=== PATIENT | male | born 1955 | race Caucasian/White ===

== ENCOUNTER 2018-11-23 12:28 | Observation (INO) | payer OTHER ==
--- OUTSIDE RECORDS SUMMARY | 2018-11-23 12:30 | XMS REPORT ---
:1955 [facility] Address [address] Miguel [address] [place] [id number] Care Team Providers Name Role Phone Unavailable Unavailable Unavailable Problems This patient has no known problems. Allergies, Adverse Reactions, Alerts This patient has no known allergies or adverse reactions. Medications This patient has no known medications.
[2018-11-23] MEDS ORDERED: NA CHLORIDE 0.9% 1,000 ML ONE (13:19)
[2018-11-23] MEDS ORDERED: LORazepam 2 MG/ML VIAL ONE ×3 (13:19→16:57)
[2018-11-23] MEDS ORDERED: FAMOTIDINE 20 MG/2 ML VIAL IV ONE (13:19)
[2018-11-23] MEDS ORDERED: ONDANSETRON 4 MG/2 ML VIAL ONE (13:19)
[2018-11-23] MEDS ORDERED: NA CHLORIDE 0.9% 1,000 ML with FOLIC ACID 1 MG, THIAMINE HCL 100 MG, MULTIVITAMINS INJ ... IV SCH ×4 (13:30)
[2018-11-23 13:38] LABS: Absolute Lymphocytes (CBC) 0.9 K/uL (0.7-4.9); Basophils % 0.7 % (0-1.3); Eosinophils % 0.4 % (0-4.4); Hematocrit 41.9 % (39.6-49.0); MPV 6.8 fL (7.6-11.3); Monocytes % 9.5 % (3.3-12.3); RBC Red Blood Cell Count 4.07 M/uL (4.33-5.43)
[2018-11-23 13:41] LABS: Protime INR 0.94
--- NOTE | 2018-11-23 14:00 | EKG ---
Test Date: 2018-11-23 Test Time: 13:03:30 Dry Chain Offbearer: JAY MEASUREMENT RESULTS: Intervals: Rate: 96 AL: 156 QRSD: 86 QT: 348 QTc: 439 [place]: P: 74 AL: 156 QRS: 50 T: 20 INTERPRETIVE STATEMENTS: Normal sinus rhythm Normal ECG Compared to ECG 08/21/2017 15:07:44 Sinus tachycardia no longer present Electronically Signed On 11-23-18 14:00:10 CDT by Isac Schilling
--- NOTE | 2018-11-23 14:50 | RAD REPORT ---
EXAM DESCRIPTION: CT - Head Brain Wo Cont - 11/23/2018 2:42 pm CLINICAL HISTORY: Tremors COMPARISON: None. TECHNIQUE: Axial 5 mm thick images of the head were obtained without IV contrast. All CT scans are performed using dose optimization technique as appropriate and may include automated exposure control or mA/KV adjustment according to patient size. FINDINGS: No intracranial hemorrhage, mass, edema or shift of mid-line structures. No acute infarcti on changes seen. No abnormal extra-axial fluid collections. Minimal atrophy and chronic ischemic ramos ges are evident. Ventricles are in proportion to any volume loss. Brainstem chronic ischemic changes evident. Physiologic and arterial tree calcifications are present. Mastoid air cells and visualized portions of the paranasal sinuses are clear. No acute bony findings. IMPRESSION: Minimal atrophy and chronic ischemic change with no acute intracranial finding seen.
[2018-11-23 15:01] LABS: ALT/SGPT 29 U/L (12-78); AST/SGOT 40 U/L (15-37); Albumin 4.5 g/dL (3.4-5.0); Alkaline Phosphatase 80 U/L (45-117); BUN Blood Urea Nitrogen 12 mg/dL (7-18); Bicarbonate 21 mmol/L (21-32); Bilirubin Direct 0.6 mg/dL (0-0.2); Glucose Level 84 mg/dL (74-106); Magnesium 1.7 mg/dL (1.8-2.4); Phosphorus 1.5 mg/dL (2.5-4.9); Potassium 4.3 mmol/L (3.5-5.1); Protein, Total 8.3 g/dL (6.4-8.2); Sodium Level 137 mmol/L (136-145); Troponin I < 0.02 ng/mL (0.0-0.045)
--- NOTE | 2018-11-23 16:44 | ER ---
Nurse's Notes [facility] Name: Gavin Polo Jr Age: 63 yrs Sex: Male : 1955 Arrival Date: 11/23/2018 Time: 12:33 Bed 8 Private MD: Diagnosis: Alcohol dependence with withdrawal;Tremor, unspecified Presentation: 11/23 12:33 Presenting complaint: EMS states: toned out for shaking. pt states this happened to him ch approx 4 months ago, he was seen here and they didn't find a cause. stated it happened once for about four hours yesterday, and then today it keeps happening. c/o slight headache. Transition of care: patient was not received from another setting of care. Onset of symptoms was November 22, 2018 at 12:00. Risk Assessment: Do you want to hurt yourself or someone else? Patient reports no desire to harm self or others. Initial Sepsis Screen: Does the patient meet any 2 criteria? No. Patient's initial sepsis screen is negative. Does the patient have a suspected source of infection? No. Patient's initial sepsis screen is negative. Care prior to arrival: None. 12:33 Method Of Arrival: EMS: [facility] 12:33 Acuity: NICK 2 12:37 Presenting complaint: Patient states: I start shaking and I cannot stop, it comes and ch goes. started yesterday, but it went away. today it has not. I drink daily, but I cant remember when my last drink was. Triage Assessment: 12:37 General: Appears in no apparent distress. comfortable, Behavior is anxious, restless. ch Pain: Complains of pain in head Pain currently is 2 out of 10 on a pain scale. Neuro: Level of Consciousness is awake, alert, obeys commands, Oriented to person, place, time, situation, Copy Camera Operator are equal bilaterally Moves all extremities. Speech is normal, Facial symmetry appears normal, Facial symmetry: tongue is midline, Pupils are PERRLA, Reports headache Seizure activity pt has shaking generalized all over body, intermittantly. pt remains conscious, no loss of bowel or bladder function. pt states he has a headache. Respiratory: Airway is patent Respiratory effort is even, unlabored, Breath sounds are clear bilaterally. GI: No signs and/or symptoms were reported involving the gastrointestinal system. : No signs and/or symptoms were reported regarding the genitourinary system. Derm: Skin is healthy with good turgor, Skin is diaphoretic, Skin is flushed, Skin temperature is hot. Musculoskeletal: Capillary refill < 3 seconds, in bilateral fingers. toes. Historical: - Allergies: 12:44 No Known Allergies; ch - Home Meds: 16:52 bupropion HCl 100 mg Oral tab 1 tab pt takes two tabs in the AM, and 1 at 1200 ch [Active]; Protonix 40 mg Oral TbEC 1 tab once daily [Active]; escitalopram oxalate 10 mg oral tab 1 tab once daily [Active]; benazepril 20 mg oral tab 1 tab once daily [Active]; naltrexone 50 mg oral tab 1 tab once daily [Active]; - PMHx: 12:36 Atrial valve stenosis; GERD; Hypertension; central tremor; barrots; Anxiety; ch - PSHx: 12:36 Knee surgery; Hernia repair; ch - Immunization history:: Adult Immunizations up to date. - Social history:: Smoking status: Patient/guardian denies using tobacco, Patient uses alcohol, on a daily basis. daily, cannot remember last drink. - Ebola Screening: : Patient negative for fever greater than or equal to 101.5 degrees Fahrenheit, and additional compatible Ebola Virus Disease symptoms Patient denies exposure to infectious person Patient denies travel to an Ebola-affected area in the 21 days before illness onset No symptoms or risks identified at this time. Screenin:30 Abuse screen: Denies threats or abuse. Denies injuries from another. Nutritional ch screening: No deficits noted. Tuberculosis screening: No symptoms or risk factors identified. Fall Risk No fall in past 12 months (0 pts). Secondary diagnosis (15 points) IV access (20 points). Ambulatory Aid- None/Bed Rest/Nurse Assist (0 pts). Gait- Weak (10 pts.). Mental Status- Oriented to own ability (0 pts). Total Luna Fall Scale indicates Low Risk Score (25-44 pts). Fall prevention measures have been instituted. Side Rails Up X 2 Placed close to Nursing Station Frequent Obs/Assesments occuring Family Present and informed to notify staff if they need to leave bedside As available Patient and Family Educated on Fall Prevention Program and strategies. Assessment: 13:20 Reassessment: Patient appears in no apparent distress at this time. Patient and/or ch family updated on plan of care and expected duration. Pain level reassessed. pt asleep in room, no tremors now Patient states feeling better. Patient states symptoms have improved. 13:20 General: Appears in no apparent distress. comfortable. ch 14:14 Reassessment: Patient appears in no apparent distress at this time. Patient and/or ch family updated on plan of care and expected duration. Pain level reassessed. Patient is alert, oriented x 3, equal unlabored respirations, skin warm/dry/pink. Patient states feeling better. Patient states symptoms have improved. Reassessment: pt attempts to give urine sample, pt can stand and ambulate to chair without assistance. I remain at pt side due to fall risk status. Neuro: when pt is asleep, no tremors. when pt is awake, pt has short intermittent generalized shaking, much improved. 14:16 Reassessment: Patient appears in no apparent distress at this time. pt HR increases to ch 135 when pt pt moves out of bed to chair. pt hr then returns to 90s after being in bed for a few min. provider notified. 16:10 Reassessment: Patient appears in no apparent distress at this time. Patient and/or ch family updated on plan of care and expected duration. Pain level reassessed. Patient is alert, oriented x 3, equal unlabored respirations, skin warm/dry/pink. pt attempts to urinate for third time, unsuccessful. pt returns to bed, still having tremors. 16:52 Reassessment: Patient appears in no apparent distress at this time. Patient and/or ch family updated on plan of care and expected duration. Pain level reassessed. Patient is alert, oriented x 3, equal unlabored respirations, skin warm/dry/pink. Patient states feeling better. Patient states symptoms have improved. 18:05 Reassessment: Patient appears in no apparent distress at this time. No changes from previously documented assessment. Patient and/or family updated on plan of care and expected duration. Pain level reassessed. pt attempts to urinate again, unsuccessful. pt states this happens sometimes, he has prostate issues. pt refuses straight cath. pt given food tray, eating in room. no s/s of distress, awaiting room assignment Patient denies pain at this time. Patient states feeling better. 18:16 Reassessment: Patient appears in no apparent distress at this time. Patient and/or ch family updated on plan of care and expected duration. Pain level reassessed. attempting to call report now. 18:18 Reassessment: floor states they cannot take patients until after shift change. pt ch notified of wait another 1.5 hours at least till going up stairs. pt verb understanding. pt has eaten all his dinner, states he feels better and is fine. 19:10 Reassessment: Patient appears in no apparent distress at this time. UDS unable to ch obtain, not enough urine. pt urinates once, approx 200mL. urine is spilled at UA station after dip stick. Vital Signs: 12:37 BP 134 / 96; Pulse 113; Resp 26; Temp 98.8; Pulse Ox 99% on R/A; Weight 92.99 kg; ch Height 5 ft. 8 in. (172.72 cm); Pain 2/10; 13:40 BP 146 / 74; Pulse 87; Resp 12; Temp 98.2; Pulse Ox 99% on R/A; Pain 0/10; ch 15:27 BP 134 / 107; Pulse 110; Resp 18; Temp 98.8; Pulse Ox 99% on R/A; Pain 0/10; ch 16:10 BP 136 / 68; Pulse 93; Resp 16; Temp 98.7; Pulse Ox 96% on R/A; Pain 1/10; ch 18:05 BP 122 / 64; Pulse 91; Resp 22; Temp 98.8; Pulse Ox 96% on R/A; Pain 0/10; ch 12:37 Body Mass Index 31.17 (92.99 kg, 172.72 cm) ED Course: 12:33 Patient arrived in ED. 12:35 Triage completed. ch 12:37 Arm band placed on left wrist. Patient placed in an exam room, on a stretcher, on monitoring coordinator, on pulse oximetry, Patient seizure precautions in place. 12:49 [facility]endo[facility] cp 12:49 Josué Medrano MD is Attending Physician. cp 12:59 Torie Rojas, MAURISIO is Primary Nurse. 13:00 Patient has correct armband on for positive identification. Placed in gown. Bed in low ch position. Call light in reach. Side rails up X 1. Adult w/ patient. monitor worker on. Pulse ox on. NIBP on. 13:00 Pillow given. ch 13:04 EKG done, by electronic service technician. reviewed by Britton GUADARRAMA. sm3 13:20 No apparent distress. Resting quietly. Appears to be sleeping. ch 13:20 No provider procedures requiring assistance completed. Inserted saline lock: 18 gauge ch in left forearm, using aseptic technique. Blood collected. 14:44 CT Head Brain wo Cont In Process Unspecified. EDMS 16:42 Mario Pearce DO is Hospitalizing Provider. cp 19:42 Patient admitted, IV remains in place. ak1 Administered Medications: 13:21 Drug: Ativan 1 mg Route: IVP; Site: left forearm; ch 19:09 Follow up: Response: No adverse reaction; Marked relief of symptoms ch 13:21 Drug: Pepcid 20 mg Route: IVP; Site: left forearm; ch 14:13 Follow up: Response: No adverse reaction; Marked relief of symptoms ch 13:21 Drug: NS 0.9% 1000 ml Route: IV; Rate: 1 bolus; Site: left forearm; ch 14:00 Follow up: IV Status: Completed infusion; IV Intake: 1000ml ch 13:23 Drug: Zofran 4 mg Route: IVP; Site: left forearm; ch 14:13 Follow up: Response: No adverse reaction; Marked relief of symptoms ch 14:00 Drug: Banana Bag - (NS 0.9% 1000 ml, foLIC Acid 1 mg, Thiamine 100 mg, Multivitamin 1 ch amp) Route: IV; Rate: 250 ml/hr; Site: left forearm; 19:09 Follow up: IV Status: Infusion continued upon admission ch 14:30 Drug: Ativan 1 mg Route: IVP; Site: left forearm; ph 16:43 Follow up: Response: No adverse reaction ch 16:43 Drug: Ativan 1 mg Route: IVP; Site: left forearm; ch 16:49 Follow up: Response: No adverse reaction; Other; Other tremors reduced ch 16:54 Drug: Magnesium Sulfate 1 grams Route: IVPB; Infused Over: 1 hrs; Site: left forearm; ch 18:20 Follow up: IV Status: Completed infusion; IV Intake: 100ml ch Intake: 14:00 IV: 1000ml; Total: 1000ml. ch 18:20 IV: 100ml; Total: 1100ml. ch Outcome: 16:43 Decision to Hospitalize by Provider. cp 19:42 Admitted to Med/surg accompanied by tech, via stretcher, room 217, with chart, Report ak1 called to cherise. 19:42 Condition: stable 19:42 Instructed on the need for admit. 19:57 Patient left the ED. ak1 Signatures: Dispatcher [employer] EDMS Torie Rojas RN RN Corie Guillen RN RN ak1 Irene Case RN RN ph Kelly, Britton, PA PA cp Cathryn Craven 3 Corrections: (The following items were deleted from the chart) 12:43 12:33 Acuity: NICK 3 ch ch 14:16 13:20 Reassessment: Patient appears in no apparent distress at this time. Patient ch and/or family updated on plan of care and expected duration. Pain level reassessed. Patient is alert, oriented x 3, equal unlabored respirations, skin warm/dry/pink. pt asleep in room, no tremors now Patient states feeling better. Patient states symptoms have improved. ch
--- NOTE | 2018-11-23 16:44 | EDPHYS ---
Physician Documentation [facility] Name: Gavin Polo Jr Age: 63 yrs Sex: Male : 1955 Arrival Date: 11/23/2018 Time: 12:33 Bed 8 Private MD: ED Physician Josué Medrano HPI: 11/23 13:05 This 63 yrs old Male presents to ER via EMS with complaints of Tremor. cp 13:05 The patient's problem is reported as tremor. cp 13:05 Onset: The symptoms/episode began/occurred this morning. Duration: The episode is cp continuous. Associated signs and symptoms: Pertinent positives: headache, Pertinent negatives: abdominal pain, chest pain. Severity of symptoms: in the emergency department the symptoms are unchanged despite home interventions. Patient's baseline: Neuro: alert and fully oriented, Motor: no deficits, Ambulation: walks without assistance, Speech: normal. of patient daily drinking of 5 alcoholic beverages per night for the past several months. Patient reports he stopped drinking yesterday and shaking worsened this morning. Historical: - Allergies: 12:44 No Known Allergies; - Home Meds: 16:52 bupropion HCl 100 mg Oral tab 1 tab pt takes two tabs in the AM, and 1 at 1200 ch [Active]; Protonix 40 mg Oral TbEC 1 tab once daily [Active]; escitalopram oxalate 10 mg oral tab 1 tab once daily [Active]; benazepril 20 mg oral tab 1 tab once daily [Active]; naltrexone 50 mg oral tab 1 tab once daily [Active]; - PMHx: 12:36 Atrial valve stenosis; GERD; Hypertension; central tremor; barrots; Anxiety; - PSHx: 12:36 Knee surgery; Hernia repair; - Immunization history:: Adult Immunizations up to date. - Social history:: Smoking status: Patient/guardian denies using tobacco, Patient uses alcohol, on a daily basis. daily, cannot remember last drink. - Ebola Screening: : Patient negative for fever greater than or equal to 101.5 degrees Fahrenheit, and additional compatible Ebola Virus Disease symptoms Patient denies exposure to infectious person Patient denies travel to an Ebola-affected area in the 21 days before illness onset No symptoms or risks identified at this time. ROS: 13:10 Constitutional: Negative for body aches, chills, fever, poor PO intake. cp 13:10 Eyes: Negative for injury, pain, redness, and discharge. cp Exam: 13:05 ECG was reviewed by the Attending Physician. cp 13:15 Constitutional: The patient appears in no acute distress, alert, awake, non-toxic, well cp developed, well nourished, diaphoretic. 13:15 Head/Face: Normocephalic, atraumatic. cp 13:15 Eyes: Periorbital structures: appear normal, Pupils: equal, round, and reactive to light and accomodation, Extraocular movements: intact throughout, Conjunctiva: normal, no exudate, no injection, Sclera: no appreciated abnormality, Lids and lashes: appear normal, bilaterally. 13:15 ENT: External ear(s): are unremarkable, Ear canal(s): are normal, clear, TM's: are normal, no evidence of bulging, no erythema, Nose: is normal, Mouth: Lips: moist, Oral mucosa: pink and intact, moist, Posterior pharynx: is normal, airway is patent, no erythema, no exudate. 13:15 Neck: ROM/movement: is normal, is supple, without pain, no range of motions limitations, no nuchal rigidity. 13:15 Chest/axilla: Inspection: normal, Palpation: is normal, no crepitus, no tenderness. 13:15 Cardiovascular: Rate: tachycardic, Rhythm: regular, Edema: is not appreciated, JVD: is not appreciated. 13:15 Respiratory: the patient does not display signs of respiratory distress, Respirations: normal, no use of accessory muscles, no retractions, no splinting, no tachypnea, labored breathing, is not present, Breath sounds: are clear throughout, no decreased breath sounds, no stridor, no wheezing. 13:15 Abdomen/GI: Inspection: abdomen appears normal, Palpation: abdomen is soft and non-tender, in all quadrants. 13:15 Skin: cellulitis, is not appreciated, no rash present. 13:15 Neuro: Orientation: to person, place \T\ time. Mentation: is normal, Cerebellar function: normal finger to nose testing, Motor: moves all fours, strength is normal, Sensation: is normal, Abnormal movements: resting tremor, is located in the right arm and left arm. 15:00 Radiologist reports: no acute findings cp Vital Signs: 12:37 BP 134 / 96; Pulse 113; Resp 26; Temp 98.8; Pulse Ox 99% on R/A; Weight 92.99 kg; ch Height 5 ft. 8 in. (172.72 cm); Pain 2/10; 13:40 BP 146 / 74; Pulse 87; Resp 12; Temp 98.2; Pulse Ox 99% on R/A; Pain 0/10; ch 15:27 BP 134 / 107; Pulse 110; Resp 18; Temp 98.8; Pulse Ox 99% on R/A; Pain 0/10; ch 16:10 BP 136 / 68; Pulse 93; Resp 16; Temp 98.7; Pulse Ox 96% on R/A; Pain 1/10; ch 18:05 BP 122 / 64; Pulse 91; Resp 22; Temp 98.8; Pulse Ox 96% on R/A; Pain 0/10; ch 12:37 Body Mass Index 31.17 (92.99 kg, 172.72 cm) ch MDM: 12:55 Patient medically screened. cp 15:45 Data reviewed: vital signs, nurses notes, lab test result(s), EKG, radiologic studies, cp CT scan, plain films, I have discussed the patient's presentation/case with the attending Emergency Department Physician; and as a result, I will admit patient. 15:45 Test interpretation: by ED physician or midlevel provider: ECG. Counseling: I had a cp detailed discussion with the patient and/or guardian regarding: the historical points, exam findings, and any diagnostic results supporting the discharge/admit diagnosis, lab results, radiology results. Response to treatment: the patient's symptoms have mildly improved after treatment. 15:53 Physician consultation: Mario Portia AGUILERA was called at 15:54, was contacted at 15:54, regarding admission. 11/23 12:57 Order name: Acetaminophen cp 11/23 12:57 Order name: Basic Metabolic Panel cp 11/23 12:57 Order name: CBC with Diff cp 11/23 12:57 Order name: ETOH Level cp 11/23 12:57 Order name: Hepatic Function cp 11/23 12:57 Order name: PT-INR cp 11/23 12:57 Order name: Ptt, Activated; Complete Time: 14:08 cp 11/23 12:57 Order name: Salicylate; Complete Time: 14:54 11/23 12:57 Order name: Urine Drug Screen 11/23 12:57 Order name: Troponin I; Complete Time: 15:34 11/23 12:57 Order name: Magnesium; Complete Time: 15:34 11/23 12:57 Order name: Phosphorus; Complete Time: 15:34 11/23 12:59 Order name: Acetaminophen Level; Complete Time: 15:34 EDTN 11/23 12:59 Order name: Basic Metabolic Panel; Complete Time: 15:34 EDTN 11/23 12:57 Order name: EKG; Complete Time: 13:00 11/23 12:59 Order name: CBC with Automated Diff; Complete Time: 14:08 [facility] 11/23 14:07 Interpretation: Normal except: RBC 4.07; MCV 103.1; MCH 36.6; PLT 149; MPV 6.8. 11/23 12:59 Order name: Alcohol Serum/Plasma; Complete Time: 14:08 [facility] 11/23 13:00 Order name: Liver (Hepatic) Function; Complete Time: 15:34 [facility] 11/23 13:00 Order name: Protime (+INR); Complete Time: 14:08 [facility] 11/23 14:18 Order name: CT Head Brain wo Cont; Complete Time: 14:54 11/23 14:54 Interpretation: Report reviewed. 11/23 18:33 Order name: Urine Dipstick--Ancillary (enter results) 11/23 18:40 Order name: Urine Dipstick-Ancillary [facility] 11/23 12:57 Order name: EKG - Nurse/Tech; Complete Time: 13:43 11/23 12:57 Order name: IV Saline Lock; Complete Time: 13:43 11/23 12:57 Order name: Labs collected and sent; Complete Time: 13:43 11/23 12:57 Order name: Urine Dipstick-Ancillary (obtain specimen); Complete Time: 19:15 11/23 12:57 Order name: IV; Complete Time: 13:43 11/23 16:58 Order name: Diet Regular; Complete Time: 17:01 11/23 17:04 Order name: Social Service Consult EDMS EC:05 Rate is 96 beats/min. Rhythm is regular. [place] interval is normal. QRS interval is normal. cp QT interval is normal. T waves are Inverted in lead III. Interpreted by me. Reviewed by me. Administered Medications: 13:21 Drug: Ativan 1 mg Route: IVP; Site: left forearm; ch 19:09 Follow up: Response: No adverse reaction; Marked relief of symptoms ch 13:21 Drug: Pepcid 20 mg Route: IVP; Site: left forearm; ch 14:13 Follow up: Response: No adverse reaction; Marked relief of symptoms ch 13:21 Drug: NS 0.9% 1000 ml Route: IV; Rate: 1 bolus; Site: left forearm; ch 14:00 Follow up: IV Status: Completed infusion; IV Intake: 1000ml ch 13:23 Drug: Zofran 4 mg Route: IVP; Site: left forearm; ch 14:13 Follow up: Response: No adverse reaction; Marked relief of symptoms ch 14:00 Drug: Banana Bag - (NS 0.9% 1000 ml, foLIC Acid 1 mg, Thiamine 100 mg, Multivitamin 1 ch amp) Route: IV; Rate: 250 ml/hr; Site: left forearm; 19:09 Follow up: IV Status: Infusion continued upon admission ch 14:30 Drug: Ativan 1 mg Route: IVP; Site: left forearm; ph 16:43 Follow up: Response: No adverse reaction ch 16:43 Drug: Ativan 1 mg Route: IVP; Site: left forearm; ch 16:49 Follow up: Response: No adverse reaction; Other; Other tremors reduced ch 16:54 Drug: Magnesium Sulfate 1 grams Route: IVPB; Infused Over: 1 hrs; Site: left forearm; ch 18:20 Follow up: IV Status: Completed infusion; IV Intake: 100ml ch Disposition: 11/23/18 16:43 Hospitalization ordered by Mario Pearce for Observation. Preliminary diagnosis are Alcohol dependence with withdrawal, Tremor, unspecified. - Bed requested for Telemetry/MedSurg (observation). - Status is Observation. ak1 - Condition is Stable. - Problem is new. - Symptoms have improved. UTI on Admission? No Addendum: 11/26/2018 11:54 Co-signature as Attending Physician, Josué Medrano MD I agree with the assessment and k dr plan of care. Signatures: Dispatcher [employer] EDMS Torie Rojas RN RN Josué Medrano MD MD kdr Solis, Maria ms Corie Guillen RN RN ak1 Irene Case RN RN Britton Mendoza, THIERRY GUADARRAMA cp Corrections: (The following items were deleted from the chart) 11/23 18:09 16:43 Hospitalization Ordered by Mario Pearce DO for Observation. Preliminary ms diagnosis is Alcohol dependence with withdrawal; Tremor, unspecified. Bed requested for Telemetry/MedSurg (observation). Status is Observation. Condition is Stable. Problem is new. Symptoms have improved. UTI on Admission? No. cp 19:57 18:09 11/23/2018 16:43 Hospitalization Ordered by Mario Pearce DO for Observation. ak1 Preliminary diagnosis is Alcohol dependence with withdrawal; Tremor, unspecified. Bed requested for Telemetry/MedSurg (observation). Status is Observation. Condition is Stable. Problem is new. Symptoms have improved. UTI on Admission? No. ms
--- NOTE | 2018-11-23 16:53 | P.HP ---
Certification for Inpatient Patient admitted to: Observation With expected LOS: <2 Midnights Patient will require the following post-hospital care: Home Health Services Practitioner: I am a practitioner with admitting privileges, knowledge of patient current condition, hospital course, and medical plan of care. Services: Services provided to patient in accordance with Admission requirements found in Title 42 Section 412.3 of the Code of Federal Regulations Patient History Date of Service: 11/23/18 Primary Care Provider: Dr. Case([facility]); Neurology-Dr. Campos Reason for admission: Increase tremor History of Present Illness: 63-year-old male with history of GERD, hypertension, depression with anxiety, essential tremor, and alcohol abuse. Patient presented to the emergency room with increased tremor. Patient had increase tremor over the last day. He was getting worse. He admits drinking alcohol on a regular basis for greater than 20 years. He drinks about a half a gal of whiskey per day. His last use of alcohol was yesterday. Patient is planning to quit. Patient denies chest pain, shortness of breath, nausea, vomiting, abdominal pain, diarrhea or constipation. Patient further mentions that he is seen by a neurology for essential tremors. He has been on multiple medications for this without any success. He currently takes gabapentin at this time. Other medications include Naltrexone which I suspect has been given to him for alcohol abuse. He came to the ER for further evaluation. In the ER patient slightly tachycardic with a rate around 110. Blood pressure also slightly elevated. Patient afebrile. Oxygen saturations within normal range. Tremors were very noticeable. White count 5.5, hemoglobin 14.9, platelet count 149. Sodium 137, potassium 4.3, BUN of 12, creatinine 1.23 with a GFR 59. Glucose 84. AST elevated. Magnesium 1.7. Alcohol level less than 3. Urine drug screen pending. CT of the head unremarkable except for chronic ischemic changes. Patient was given 2 mg of Ativan to help with the tremor. Patient also given banana bag IV. Patient was admitted for observation. When I saw the patient ER, was at bedside. He did not appear in any significant distress. Very noticeable tremors noted. Patient not able to ambulate at this time. Patient admits alcohol abuse. Patient has not been admitted for alcohol withdrawal in the past. He has stop alcohol in the past without significant withdrawal. Allergies No Known Allergies Allergy (Unverified 11/23/18 13:11) Home medications list reviewed: Yes - Past Medical/Surgical History Diabetic: No -: Hypertension -: Depression with anxiety -: GERD -: Essential tremors -: Alcohol abuse -: Left knee surgery Psychosocial/ Personal History: Patient is of 35 years. He has 1 child. Patient is retired. - Family History Brother -: Other (see notes) (Tremors) Sister -: Other (see notes) (Tremors) Father -: Cancer (Prostate cancer) Mother -: Cancer (Breast cancer) - Social History Smoking Status: Never smoker Alcohol use: Yes CD- Drugs: No Caffeine use: Yes Place of Residence: Home Review of Systems General: As per HPI Eyes: Unremarkable ENT: Unremarkable Respiratory: Unremarkable Cardiovascular: Unremarkable Gastrointestinal: Unremarkable Genitourinary: Unremarkable Musculoskeletal: Unremarkable Integumentary: Unremarkable Neurological: Incoordination, As per HPI Lymphatics: Unremarkable Physical Examination - Physical Exam General: Alert, In no apparent distress, Oriented x3, Cooperative HEENT: Atraumatic, Normocephalic, PERRLA, Mucous membr. moist/pink Neck: Supple, No Thyromegaly Respiratory: Clear to auscultation bilaterally, Normal air movement Cardiovascular: Abnormal pulses (Sinus tachycardia) Gastrointestinal: Normal bowel sounds, Soft and benign, Non-distended, No ascites, No tenderness, No masses, No rebound, No guarding Musculoskeletal: No erythema, No tenderness, No warmth, Other (Patient with active and passive tremors. Worse with activity. Patient not able to safely ambulate) Neurological: Normal speech, Normal strength at 5/5 x4 extr, Normal tone, Normal affect - Studies Laboratory Data (last 24 hrs) 11/23/18 13:21: PT 11.1, INR 0.94, APTT 28.1 11/23/18 13:21: WBC 5.5, Hgb 14.9, Hct 41.9, Plt Count 149 L 11/23/18 13:21: Sodium 137, Potassium 4.3, BUN 12, Creatinine 1.23, Glucose 84, Phosphorus 1.5 L, Magnesium 1.7 L, Total Bilirubin 2.0 H, AST 40 H, ALT 29, Alkaline Phosphatase 80, Troponin I < 0.02 Assessment and Plan - Plan Impression: Tremors with agitation suspect alcohol withdrawal complicated with essential moderate to severe tremors Acute Renal insufficiency secondary to Dehydration with hypomagnesia Hypertension Depression with anxiety GERD Plan: Tremors with agitation suspect alcohol withdrawal complicated with essential moderate to severe tremors: Patient will be admitted for observation. Will continue with IV fluids. Will provide IV banana bag for alcohol withdrawal. Will continue to monitor closely. Continue alcohol withdrawal protocol. Will start Librium 5 mg 3 times a day and hold if with increase sedation. Will provide Ativan as needed for severe agitation. Will discontinue Naltrexone. It appears he has been taking this for his alcohol abuse. Patient also taking Neurontin for chronic tremors. Will continue with his medication. I left a message with his neurologist Dr. Campos([phone]) to obtain more information on his history. Will have physical therapy and occupational therapy assess ambulation tomorrow. Fall precautions in place. Will provide bed rest tonight. If clinically stable without risk of fall and injury tomorrow , will consider discharge home. Patient may benefit with home health and physical therapy which can be arranged as an outpatient. Will continue to reassess and monitor closely. Patient continues with DVT prophylaxis-Lovenox. I will turn the service over to Dr. Lim tomorrow. I will go over the plan of care with her. Acute Renal insufficiency secondary to Dehydration with hypomagnesia: Continue with IV fluids and banana bag. Will monitor and adjust appropriately. Electrolytes to be replaced. Hypertension: Restart benazepril. Depression with anxiety: Restart his medication of Escitalopram 20 mg daily and Bupropion 100 mg 2 pills in the morning and 1 pill at night. GERD: Will continue his medication of Protonix. Discharge Plan: Home Plan to discharge in: 24 Hours - Advance Directives Does patient have a Living Will: No Does patient have a Durable POA for Healthcare: No - Code Status/Comfort Care Code Status Assessed: Yes (Patient full code) Time Spent Managing Pts Care (In Minutes): 55
[2018-11-23] MEDS ORDERED: MAGNESIUM SULFATE 1 gm IVPB 1 GM/100 ML BAG IV ONE (17:14)
[2018-11-23 18:39] LABS: Urine Blood TRACE (NEG); Urine Glucose NEGATIVE (NEG); Urine Protein NEGATIVE (NEG); Urine Specific Gravity 1.015 (1.005-1.030)
[2018-11-23] MEDS ORDERED: buPROPion HCl 100 MG TAB PO SCH (20:21)
[2018-11-23] MEDS ORDERED: ACETAMINOPHEN 500 MG TAB PO PRN (20:21)
[2018-11-23] MEDS ORDERED: ONDANSETRON 4 MG/2 ML VIAL IV PRN (20:21)
[2018-11-23] MEDS ORDERED: LORazepam 2 MG/ML VIAL IV PRN (20:21)
[2018-11-23] MEDS: buPROPion HCl 100 MG TAB PO SCH (21:24)
[2018-11-23] MEDS: NA CHLORIDE 0.9% 1,000 ML IV SCH (21:24)
[2018-11-23] MEDS: chlordiazePOXIDE HCl 5 MG CAP PO SCH (21:25)
[2018-11-23] MEDS: POTASS/SODIUM PHOSPHATE 1 PKT POWD.PACK PO SCH ×3 (21:25→23:17)
[2018-11-23] MEDS: GABAPENTIN 300 MG CAP PO SCH (21:25)
[2018-11-23 23:15] LABS: Urine Appearance CLEAR; Urine Bilirubin NEGATIVE (NEG); Urine Blood NEGATIVE (NEG); Urine Color YELLOW; Urine Glucose NEGATIVE (NEG); Urine Protein NEGATIVE (NEG); Urine Specific Gravity 1.015 (1.005-1.030)
[2018-11-23 23:17] LABS: Urine Microscopic Reflex NO UMIC
[2018-11-24 04:28] LABS: Absolute Lymphocytes (CBC) 1.2 K/uL (0.7-4.9); Basophils % 0.8 % (0-1.3); Eosinophils % 0.7 % (0-4.4); Hematocrit 34.6 % (39.6-49.0); Lymphocytes % 27.7 % (15.3-44.8); MPV 7.4 fL (7.6-11.3); Monocytes % 14.6 % (3.3-12.3)
[2018-11-24 04:45] LABS: Albumin 3.6 g/dL (3.4-5.0); Bilirubin Total 1.2 mg/dL (0.2-1.0); Phosphorus 3.5 mg/dL (2.5-4.9); Potassium 3.8 mmol/L (3.5-5.1); Protein, Total 6.9 g/dL (6.4-8.2); Thyroid Stimulating Hormone 4.88 uIU/mL (0.360-3.740)
[2018-11-24] MEDS ORDERED: POTASSIUM CL SA 10 MEQ TAB PO ONE (05:18)
[2018-11-24] MEDS: PANTOPRAZOLE 40MG TABLET PO SCH (05:44)
[2018-11-24] MEDS: NA CHLORIDE 0.9% 1,000 ML IV SCH ×2 (05:47→08:15)
[2018-11-24] MEDS: buPROPion HCl 100 MG TAB PO SCH ×2 (08:14→16:08)
[2018-11-24] MEDS: BENAZEPRIL 10 MG TAB PO SCH (08:14)
[2018-11-24] MEDS: chlordiazePOXIDE HCl 5 MG CAP PO SCH ×2 (08:14→13:05)
[2018-11-24] MEDS: ESCITALOPRAM 20 MG TAB PO SCH (08:15)
[2018-11-24] MEDS: ENOXAPARIN 40 MG/0.4 ML SQ SCH (08:15)
[2018-11-24] MEDS: GABAPENTIN 300 MG CAP PO SCH ×3 (08:15→20:36)
[2018-11-24] MEDS: FOLIC ACID 1 MG, MULTIVITAMINS INJ 10 ML, THIAMINE HCL 100 MG in NA CHLORIDE 0.9% 1,000 ML IV SCH (09:03)
--- NOTE | 2018-11-24 14:04 | P.PN ---
Subjective Date of Service: 11/24/18 Primary Care Provider: Dr. Case([facility]); Neurology-Dr. Campos Chief Complaint: Increase tremor pt recieved ativan early am ,pt was having generalized shaking and anxiety , withdrawal?? no other complains Review of Systems 10-point ROS is otherwise unremarkable Physical Examination - Vital Signs Temperature: 98 F Blood Pressure: 139/93 Pulse: 90 Respirations: 20 Pulse Ox (%): 94 - Physical Exam General: Alert, In no apparent distress, Oriented x3 HEENT: Atraumatic, Normocephalic, PERRLA Respiratory: Clear to auscultation bilaterally, Normal air movement Cardiovascular: No edema, Normal pulses, Regular rate/rhythm, Normal S1 S2 Gastrointestinal: Normal bowel sounds, Soft and benign, Non-distended Musculoskeletal: No swelling, No erythema, No tenderness Integumentary: No rashes Neurological: Normal speech, Normal strength at 5/5 x4 extr Other Physical/Emotional Findings: bilaterla hand tremors - Studies Laboratory Data (last 24 hrs) 11/23/18 13:21: Sodium 137, Potassium 4.3, BUN 12, Creatinine 1.23, Glucose 84, Phosphorus 1.5 L, Magnesium 1.7 L, Total Bilirubin 2.0 H, AST 40 H, ALT 29, Alkaline Phosphatase 80, Troponin I < 0.02 Assessment And Plan - Current Problems (Diagnosis) (1) Alcohol abuse Current Visit: Yes Status: Acute (2) Essential tremor Current Visit: Yes Status: Chronic (3) Hypertension Current Visit: Yes Status: Chronic (4) Depression Current Visit: Yes Status: Chronic - Plan alcohol abuse impending withdrawal transaminitis and elevated bilirubin essential tremors hypertension GERD depression plan: librium taerping ativan prn monitor fir withdrawal pt denied any abdominal pain ,no N /V ,pt needs to repeat his LFT as op PT/OT thiamine and folate neurology was consulted ,pt will f/up as op for his essential tremor resume other home meds
[2018-11-25] MEDS: NA CHLORIDE 0.9% 1,000 ML IV SCH (04:05)
[2018-11-25 06:14] LABS: Absolute Lymphocytes (CBC) 1.3 K/uL (0.7-4.9); Basophils % 0.5 % (0-1.3); Eosinophils % 2.2 % (0-4.4); Hematocrit 35.3 % (39.6-49.0); Lymphocytes % 35.1 % (15.3-44.8); MPV 7.2 fL (7.6-11.3); Monocytes % 14.6 % (3.3-12.3); RBC Red Blood Cell Count 3.36 M/uL (4.33-5.43)
[2018-11-25 06:28] LABS: Albumin 3.6 g/dL (3.4-5.0); Bilirubin Total 0.8 mg/dL (0.2-1.0); Magnesium 2.1 mg/dL (1.8-2.4); Potassium 3.6 mmol/L (3.5-5.1); Protein, Total 6.8 g/dL (6.4-8.2)
[2018-11-25] MEDS: PANTOPRAZOLE 40MG TABLET PO SCH (07:07)
[2018-11-25] MEDS ORDERED: chlordiazePOXIDE HCl 25 MG CAP PO ONE (08:00)
[2018-11-25] MEDS: ENOXAPARIN 40 MG/0.4 ML SQ SCH (08:35)
[2018-11-25] MEDS: ESCITALOPRAM 20 MG TAB PO SCH (08:35)
[2018-11-25] MEDS: GABAPENTIN 300 MG CAP PO SCH (08:35)
[2018-11-25] MEDS: buPROPion HCl 100 MG TAB PO SCH (08:35)
[2018-11-25] MEDS: BENAZEPRIL 10 MG TAB PO SCH (08:35)
[2018-11-25] MEDS: FOLIC ACID 1 MG, MULTIVITAMINS INJ 10 ML, THIAMINE HCL 100 MG in NA CHLORIDE 0.9% 1,000 ML IV SCH (08:36)
[2018-11-25] MEDS ORDERED: POTASSIUM CL SA 10 MEQ TAB PO ONE (09:00)
--- NOTE | 2018-11-25 11:16 | P.DS ---
Admission Date: 11/23/18 Discharge Date: 11/25/18 Primary Care Provider: Dr. Case([facility]); Neurology-Dr. Campos Discharge Condition: FAIR Reason for Admission: Increase tremor - Problems (1) Alcohol abuse Current Visit: Yes Status: Acute (2) Essential tremor Current Visit: Yes Status: Chronic (3) Hypertension Current Visit: Yes Status: Chronic (4) Depression Current Visit: Yes Status: Chronic Brief History of Present Illness: 63-year-old male with history of GERD, hypertension, depression with anxiety, essential tremor, and alcohol abuse.Patient presented to the emergency room with increased tremor. Patient had increase tremor over the last day. He was getting worse. He admits drinking alcohol on a regular basis for greater than 20 years. He drinks about a half a gal of whiskey per day. His last use of alcohol was yesterday. Patient is planning to quit. Patient denies chest pain, shortness of breath, nausea, vomiting, abdominal pain, diarrhea or constipation. Patient further mentions that he is seen by a neurology for essential tremors. He has been on multiple medications for this without any success Hospital Course: 63-year-old male with history of GERD, hypertension, depression with anxiety, essential tremor, and alcohol abuse.Patient was admittd for alcohol abuse and withdrawal,pt was given banana bag and librium tapering with ativan prn for withdrawal or agitation on the second day of admission pt was having generalzied shaking and was calling the nursing staff and mentioend that he is having seizures , pt seen and examined and on further questioned pt mentioned that he was told by his private neurologist that this generlized shaking is part of his tremor and not seizures pt vitals were stable during the stay and didnt have evidence of tongue biting or frothy secretions ot post ictal confusion on the 3rd day of admission pt denied any headaches and didnt receive Ativan overnight physical therapy evaluated the pt and pt was able to ambulate with no fall risks pt was clinically stable for discharge pt adviced to f/up with his private neuroogist DR Campos in 1-2 weeks pt was managed for: alcohol abuse impending withdrawal transaminitis and elevated bilirubin -resolved essential tremors hypertension GERD depression plan: librium taerping ativan prn monitor fir withdrawal pt denied any abdominal pain ,no N /V ,pt needs to repeat his LFT as op PT/OT thiamine and folate neurology was consulted ,pt will f/up as op for his essential tremor resume other home meds Vital Signs/Physical Exam: Temp Pulse Resp BP Pulse Ox 97.7 F 80 18 128/76 97 11/25/18 08:00 11/25/18 08:00 11/25/18 08:00 11/25/18 08:00 11/25/18 08:00 General: Alert, In no apparent distress, Oriented x3 HEENT: Atraumatic, Normocephalic, PERRLA Neck: Supple, JVD not distended Respiratory: Clear to auscultation bilaterally, Normal air movement Cardiovascular: No edema, Normal pulses, Regular rate/rhythm, Normal S1 S2 Gastrointestinal: Normal bowel sounds, Soft and benign, Non-distended Musculoskeletal: No clubbing, No swelling Integumentary: No rashes Neurological: Normal speech, Normal strength at 5/5 x4 extr Other Physical/Emotional Findings: bilaterla hand tremors Laboratory Data at Discharge: WBC 3.7 K/uL (4.3-10.9) L 11/25/18 05:21 Hgb 12.6 g/dL (13.6-17.9) L 11/25/18 05:21 Hct 35.3 % (39.6-49.0) L 11/25/18 05:21 Plt Count 102 K/uL (152-406) L 11/25/18 05:21 PT 11.1 SECONDS (9.5-12.5) 11/23/18 13:21 INR 0.94 11/23/18 13:21 APTT 28.1 SECONDS (24.3-36.9) 11/23/18 13:21 Sodium 135 mmol/L (136-145) L 11/25/18 05:21 Potassium 3.6 mmol/L (3.5-5.1) 11/25/18 05:21 BUN 12 mg/dL (7-18) 11/25/18 05:21 Creatinine 0.86 mg/dL (0.55-1.3) 11/25/18 05:21 Glucose 79 mg/dL (74-106) 11/25/18 05:21 Phosphorus 3.5 mg/dL (2.5-4.9) D 11/24/18 03:59 Magnesium 2.1 mg/dL (1.8-2.4) 11/25/18 05:21 Total Bilirubin 0.8 mg/dL (0.2-1.0) 11/25/18 05:21 AST 38 U/L (15-37) H 11/25/18 05:21 ALT 25 U/L (12-78) 11/25/18 05:21 Alkaline Phosphatase 59 U/L (45-117) 11/25/18 05:21 Troponin I < 0.02 ng/mL (0.0-0.045) 11/23/18 13:21 Triglycerides 54 mg/dL (<150) 11/24/18 03:59 Cholesterol 153 mg/dL (<200) 11/24/18 03:59 HDL Cholesterol 72 mg/dL (40-60) H 11/24/18 03:59 Cholesterol/HDL Ratio 2.13 11/24/18 03:59 Home Medications: Benazepril HCl [Lotensin*] 1 tab PO DAILY 11/23/18 Escitalopram [Lexapro*] 1 tab PO DAILY 11/23/18 Pantoprazole Sodium 1 tab PO ACB 11/23/18 buPROPion HCl [Bupropion HCl] 1 tab PO NOON 11/23/18 buPROPion HCl [Bupropion HCl] 2 tab PO DAILY 11/23/18 Patient Discharge Instructions: f/up with neurology DR Campos in 1-2 weeks for his essential tremor. f/up with PCP for continuation of care Diet: Low sodium Activity: Ad avelino
[2018-11-25 11:44] LABS: Barbiturates NEGATIVE (NEGATIVE); Benzodiazepines NEGATIVE (NEGATIVE); Cocaine NEGATIVE (NEGATIVE); METHAMPHETAM NEGATIVE (NEGATIVE); Methadone NEGATIVE (NEGATIVE); Opiates NEGATIVE (NEGATIVE); Phencyclidine NEGATIVE (NEGATIVE); THC Cannibis NEGATIVE (NEGATIVE)
== END 2018-11-25 13:25 | disposition home or self-care (01) ==
LOC: ER 12:28 → INTOOBSV 16:34 → OBSVTOIN 16:34 → ERHOLD 16:34 → 2ND 19:44 → INTOOBSV 11-25 10:02 → OBSVTOIN 11-25 10:02
PROVIDERS: ADMIT Family Medicine; ATTEND Family Medicine
DX: F10.239 Alcohol dependence with withdrawal, unspecified (principal); G25.0 Essential tremor; I10 Essential (primary) hypertension; F41.8 Other specified anxiety disorders; K21.9 Gastro-esophageal reflux disease without esophagitis; N28.9 Disorder of kidney and ureter, unspecified; E83.42 Hypomagnesemia; E86.0 Dehydration
CPT/HCPCS: 36415; 70450; 80048; 80053; 80061; 80076; 80307; 80320; 80329; 81003; 83735; 84100; 84439; 84443; 84484; 85025; 85610; 85730; 93005; 96361; 96365; 96366; 96375; 97116; 97163; 99285; J1650; J2405; J3411; J3475; J7030

== ENCOUNTER 2018-12-25 14:16 | Inpatient (IN) | payer OTHER ==
--- OUTSIDE RECORDS SUMMARY | 2018-12-25 14:21 | XMS REPORT ---
:1955 Author Organization [facility] Address [address] [place] [address] [place] [id number] Care Team Providers Name Role Phone Unavailable Unavailable Unavailable Problems This patient has no known problems. Allergies, Adverse Reactions, Alerts This patient has no known allergies or adverse reactions. Medications This patient has no known medications.
[2018-12-25 15:01] LABS: Absolute Lymphocytes (CBC) 1.6 K/uL (0.7-4.9); Hematocrit 35.9 % (39.6-49.0); Lymphocytes % 27.6 % (15.3-44.8); MPV 7.1 fL (7.6-11.3); RBC Red Blood Cell Count 3.39 M/uL (4.33-5.43)
[2018-12-25] MEDS ORDERED: LORazepam 2 MG/ML VIAL ONE ×4 (15:02→20:25)
[2018-12-25] MEDS ORDERED: NA CHLORIDE 0.9% 1,000 ML ONE (15:02)
[2018-12-25 15:34] LABS: Albumin 4.1 g/dL (3.4-5.0); Bilirubin Direct 0.3 mg/dL (0-0.2); Magnesium 1.7 mg/dL (1.8-2.4); Potassium 3.7 mmol/L (3.5-5.1); Protein, Total 7.7 g/dL (6.4-8.2); Troponin (Emerg Dept Use Only) 0.03 ng/mL (0.0-0.045)
--- NOTE | 2018-12-25 15:38 | RAD REPORT ---
EXAM DESCRIPTION: RAD - Chest Single View - 12/25/2018 3:24 pm CLINICAL HISTORY: DYSPNEA Chest pain. COMPARISON: Chest Single View dated 08/21/2017; CHEST PA AND LAT 2 VIEW dated 06/13/2013; CHEST PA AND LAT 2 VIEW dated 01/24/2000 FINDINGS: Portable technique limits examination quality. The lungs are grossly clear. The heart is normal in size. No displaced fractures. IMPRESSION: No acute intrathoracic process suspected.
[2018-12-25 15:43] LABS: Blood Morphology Comment NOTED (NOT SEEN); Macrocytosis 1+; Platelet Estimate ADEQ
--- NOTE | 2018-12-25 16:11 | ER ---
Nurse's Notes [facility] Name: Gavin Polo Jr Age: 63 yrs Sex: Male : 1955 Arrival Date: 12/25/2018 Time: 14:17 Bed 3 Private MD: Diagnosis: Alcohol dependence with withdrawal delirium Presentation: 12/25 14:17 Presenting complaint: Patient states: i was in here 10 days ago for convulsions and hj hallucinations; this episode started yesterday; reports drinking alcohol 16-20 shots of whiskey; on triage is severely diaphoretic and being restless, states "im about to pass put and my heart is racing". Transition of care: patient was not received from another setting of care. Onset of symptoms was December 25, 2018. Risk Assessment: Do you want to hurt yourself or someone else? Patient reports no desire to harm self or others. Initial Sepsis Screen: Does the patient meet any 2 criteria? No. Patient's initial sepsis screen is negative. Does the patient have a suspected source of infection? No. Patient's initial sepsis screen is negative. Care prior to arrival: None. 14:17 Method Of Arrival: Ambulatory 14:17 Acuity: NICK 2 hj Historical: - Allergies: 14:20 No Known Allergies; hj - Home Meds: 15:10 escitalopram oxalate 20 mg oral tab once daily [Active]; Protonix 40 mg Oral TbEC 1 tab sv once daily [Active]; bupropion HCl 300 mg oral Tb24 once daily [Active]; benazepril 10 mg oral tab once daily [Active]; gabapentin 300 mg oral cap 1 cap 3 times per day [Active]; armodafinil oral 50 mg daily oral [Active]; - PMHx: 14:20 Anxiety; Atrial valve stenosis; barrots; central tremor; GERD; Hypertension; hj - PSHx: 14:20 Knee surgery; Hernia repair; hj - Immunization history:: Adult Immunizations up to date. - Social history:: Smoking status: Patient/guardian denies using tobacco. - Ebola Screening: : No symptoms or risks identified at this time. Screenin:55 Abuse screen: Denies threats or abuse. Denies injuries from another. Nutritional sv screening: No deficits noted. Tuberculosis screening: No symptoms or risk factors identified. Fall Risk No fall in past 12 months (0 pts). No secondary diagnosis (0 pts). IV access (20 points). Ambulatory Aid- None/Bed Rest/Nurse Assist (0 pts). Gait- Impaired (20 pts.). Mental Status- Oriented to own ability (0 pts). Total Luna Fall Scale indicates Low Risk Score (25-44 pts). Fall prevention measures have been instituted. Side Rails Up X 2 Placed close to Nursing Station Frequent Obs/Assesments occuring Family Present and informed to notify staff if they need to leave bedside As available Patient and Family Educated on Fall Prevention Program and strategies. Assessment: 14:55 General: Appears in no apparent distress. uncomfortable, well developed, Behavior is sv cooperative, appropriate for age. General: Reports last drink on Monday. Pain: Denies pain. Neuro: Level of Consciousness is awake, alert, obeys commands, Oriented to person, place, time, situation, Moves all extremities. Speech is normal. Neuro: arm tremors noted. Respiratory: Airway is patent Respiratory effort is even, unlabored, Respiratory pattern is regular, symmetrical. Derm: Skin is pink, warm \\T\\ dry. 15:40 Reassessment: Patient appears in no apparent distress at this time. No changes from sv previously documented assessment. Patient and/or family updated on plan of care and expected duration. Pain level reassessed. Patient is alert, oriented x 3, equal unlabored respirations, skin warm/dry/pink. 16:45 Reassessment: pt appears agitated, restless in bed, pulling at cardiac leads, THIERRY Cramer iw notified, verbal order for 2 mg IVP now. 16:50 Reassessment: Haroldo DENNISON at bedside at this time, orders received for Ativan 2mg IVP q sg 10 mins until agitation has decreased, pt attempting to get out of bed , reports he is needing to jump over a hole in the ground, pt calmed and attempt to reorient at this time. 17:52 Reassessment: Patient appears in no apparent distress at this time. pt laying supine in sg bed, eyes closed, resp even and unlabored, pt placed to 2 lpm NC by Haroldo DENNISON o2 saturation remains WNL at 98 percent, at bedside evaluating pt at this time, will continue to monitor. 18:30 Reassessment: Patient and/or family updated on plan of care and expected duration. Pain sv level reassessed. Pt appears to be resting with eyes closed. Will continue to monitor. Respiratory: Respiratory effort is even, unlabored, Respiratory pattern is regular, symmetrical. 19:10 General: Appears in no apparent distress. Behavior is drowsy. Pain: Unable to use pain ea scale. FLACC scale score is 0 out of 10. Neuro: Pt reacts to verbal stimulus, does not answer questions appropriately . Respiratory: Airway is patent Respiratory effort is even, unlabored, Respiratory pattern is regular, symmetrical. Derm: Skin is diaphoretic, Skin is normal, Skin temperature is warm. 20:18 Reassessment: Patient and/or family updated on plan of care and expected duration. Pain ea level reassessed. Pt resting with eyes closed, respirations even and unlabored. Chest expansions even and symmetrical. Pt taken to ICU via stretcher, tolerating well. Pt became agitated in ICU, standing order obtained from [employer], Ativan 1 mg administered IVP, pt tolerated well. Report given to Astrid FORDE in ICU. Vital Signs: 14:20 Pulse 187; Resp 22; Temp 97.5(TE); Pulse Ox 97% on R/A; Weight 91.63 kg; Height 5 ft. 8 hj in. (172.72 cm); Pain 0/10; 14:39 BP 109 / 72; Pulse 94; Resp 18; Pulse Ox 98% ; sv 15:07 BP 95 / 63; Pulse 97; Resp 20; Pulse Ox 97% on 2 lpm NC; sv 15:42 BP 105 / 92; Pulse 95; Resp 20; Pulse Ox 97% ; sv 16:08 BP 111 / 86; Pulse 99; Resp 19; Pulse Ox 97% on 2 lpm NC; sv 16:40 BP 172 / 92; Pulse 128; Resp 21 S; Pulse Ox 100% on R/A; sg 17:20 Pulse 102; Resp 16; Pulse Ox 95% on R/A; sg 17:25 BP 109 / 71; Pulse 105; Resp 17; Pulse Ox 95% on R/A; sg 18:06 BP 108 / 66; Pulse 100; Resp 15; Pulse Ox 98% on 2 lpm NC; sv 19:02 BP 103 / 72; Pulse 97; Resp 16; Pulse Ox 99% on 2 lpm NC; sv 20:15 BP 112 / 68; Pulse 90; Resp 18; Temp 98.0; Pulse Ox 99% ; ea 14:20 Body Mass Index 30.72 (91.63 kg, 172.72 cm) hj 16:40 pt is very agitated, restless, visual hallucinations reported, haroldo dennison notified, sg orders recieved ED Course: 14:17 Patient arrived in ED. as 14:20 Triage completed. hj 14:20 Arm band placed on right wrist. hj 14:24 Shoaib Shaffer PA is PHCP. jr8 14:24 Britton Laurent MD is Attending Physician. jr8 14:33 EKG done, by ED staff, reviewed by Shoaib DENNISON. hj 14:39 Kayla Cortés, RN is Primary Nurse. sv 14:49 Inserted saline lock: 20 gauge in right antecubital area, using aseptic technique. ss Blood collected. 14:55 Patient has correct armband on for positive identification. Placed in gown. Bed in low sv position. Call light in reach. Side rails up X2. Adult w/ patient. equipment monitor phototypesetting on. Pulse ox on. NIBP on. Head of bed elevated. 14:58 Basic Metabolic Panel Sent. sv 14:58 CBC with Diff Sent. sv 14:58 X-ray(s) taken. sv 15:00 Seizure precautions initiated. sv 15:24 XRAY Chest (1 view) In Process Unspecified. EDMS 16:10 Ayana Moreau MD is Hospitalizing Provider. jr8 18:05 Straight cath inserted, using sterile technique, 16 Fr. Specimen obtained. Returned sv clear yellow urine. Patient tolerated well. 19:02 Report given to Snow FORDE and Collette FORDE. sv 19:05 Primary Nurse role handed off by Kayla Cortés, MAURISIO sv 20:30 No provider procedures requiring assistance completed. Patient admitted, IV remains in ea place. Administered Medications: 14:57 Drug: Ativan 1 mg Route: IVP; Site: right wrist; sv 15:19 Follow up: Response: No adverse reaction sv 14:58 Drug: NS 0.9% 1000 ml Route: IV; Rate: 1000 ml; Site: right wrist; sv 16:00 Follow up: Response: No adverse reaction; IV Status: Completed infusion; IV Intake: sv 1000ml 16:07 Drug: Magnesium Sulfate 1 grams Route: IVPB; Infused Over: 1 hrs; Site: right wrist; sv 17:10 Follow up: Response: No adverse reaction; IV Status: Completed infusion; IV Intake: sv 100ml 16:21 Drug: Banana Bag - (NS 0.9% 1000 ml, foLIC Acid 1 mg, Thiamine 100 mg, Multivitamin 1 sv amp) Route: IV; Rate: calculated rate; Site: right wrist; 18:33 Follow up: Response: No adverse reaction; IV Status: Completed infusion; IV Intake: sv 1000ml 16:40 Drug: Ativan 1 mg Route: IVP; Site: right forearm; sg 17:54 Follow up: Response: No adverse reaction sv 16:55 Drug: Ativan 2 mg Route: IVP; Site: right forearm; sg 17:54 Follow up: Response: No adverse reaction sv 17:00 Drug: Ativan 2 mg Route: IVP; Site: right forearm; sg 17:54 Follow up: Response: No adverse reaction sv 17:05 Drug: Ativan 2 mg Route: IVP; Site: right forearm; sg 17:54 Follow up: Response: No adverse reaction sv 17:10 Drug: Valium 10 mg Route: IVP; Site: right forearm; sg 17:54 Follow up: Response: No adverse reaction sv 20:31 Drug: Ativan 1 mg Route: IVP; Site: right antecubital; ea 20:32 Follow up: Response: No adverse reaction ea Intake: 16:00 IV: 1000ml; Total: 1000ml. sv 17:10 IV: 100ml; Total: 1100ml. sv 18:33 IV: 1000ml; Total: 2100ml. sv Outcome: 16:11 Decision to Hospitalize by Provider. jean 20:30 Admitted to ICU accompanied by nurse, accompanied by tech, room 8, with oxygen, on ea monitor, with chart, Report called to Astrid FORDE 20:30 Condition: stable 20:30 Instructed on Family instructed during day shift of patient, being admitted to ICU 20:33 Patient left the ED. ea Signatures: Dispatcher [employer] Kayla Pandey RN RN sv Gay, Steven, RN RN sg Martinez, Amelia as Williams, Irene, RN RN Bree Montaño RN RN ss Roszak, Josh, PA PA jr8 Angelo Peralta RN RN hj Antunez, Elena RN RN ea Corrections: (The following items were deleted from the chart) 14: 14:17 Acuity: NICK 3 hj hj 14:24 14:20 Resp 22bpm; Pulse Ox 97% RA; Temp 97.5F Temporal; 91.63 kg; Height 5 ft. 8 in.; hj BMI: 30.7; Pain 0/10; hj 14:34 14:17 Presenting complaint: Patient states: i was in here 10 days ago for convulsions hj and hallucinations; this episode started yesterday; reports drinking alcohol 16-20 shots of whiskey; hj
--- NOTE | 2018-12-25 16:12 | EDPHYS ---
Physician Documentation [facility] Name: Gavin Polo Jr Age: 63 yrs Sex: Male : 1955 Arrival Date: 12/25/2018 Time: 14:17 Bed 3 Private MD: ED Physician Britton Laurent HPI: 12/25 16:11 This 63 yrs old Male presents to ER via Ambulatory with complaints of jr8 Hallucinations. 16:11 Patient came to ED today after family stated that he was hallucinating and seeing jr8 things. Stated that he has been a heavy drinker for a long time. Quit 2 days ago abruptly. Since then has had hallucinations, fatigue, anxiety. Upon arrival patient was tachycardic and diaphoretic with tremors. Stated that he has history of tremors but are much worse then normal . Severity of symptoms: At their worst the symptoms were moderate in the emergency department the symptoms are unchanged. The patient has not experienced similar symptoms in the past. The patient has not recently seen a physician. Historical: - Allergies: 14:20 No Known Allergies; - Home Meds: 15:10 escitalopram oxalate 20 mg oral tab once daily [Active]; Protonix 40 mg Oral TbEC 1 tab sv once daily [Active]; bupropion HCl 300 mg oral Tb24 once daily [Active]; benazepril 10 mg oral tab once daily [Active]; gabapentin 300 mg oral cap 1 cap 3 times per day [Active]; armodafinil oral 50 mg daily oral [Active]; - PMHx: 14:20 Anxiety; Atrial valve stenosis; barrots; central tremor; GERD; Hypertension; hj - PSHx: 14:20 Knee surgery; Hernia repair; hj - Immunization history:: Adult Immunizations up to date. - Social history:: Smoking status: Patient/guardian denies using tobacco. - Ebola Screening: : No symptoms or risks identified at this time. ROS: 16:11 Eyes: Negative for injury, pain, redness, and discharge, ENT: Negative for injury, jr8 pain, and discharge, Neck: Negative for injury, pain, and swelling, Cardiovascular: Negative for chest pain, palpitations, and edema, Respiratory: Negative for shortness of breath, cough, wheezing, and pleuritic chest pain, Abdomen/GI: Negative for abdominal pain, nausea, vomiting, diarrhea, and constipation, Back: Negative for injury and pain, MS/Extremity: Negative for injury and deformity, Skin: Negative for injury, rash, and discoloration. 16:11 Constitutional: Positive for fatigue, malaise. 16:11 Neuro: Positive for altered mental status, tremor. Exam: 16:11 Eyes: Pupils equal round and reactive to light, extra-ocular motions intact. Lids and jr8 lashes normal. Conjunctiva and sclera are non-icteric and not injected. Cornea within normal limits. Periorbital areas with no swelling, redness, or edema. ENT: Nares patent. No nasal discharge, no septal abnormalities noted. Tympanic membranes are normal and external auditory canals are clear. Oropharynx with no redness, swelling, or masses, exudates, or evidence of obstruction, uvula midline. Mucous membranes moist. Neck: Trachea midline, no thyromegaly or masses palpated, and no cervical lymphadenopathy. Supple, full range of motion without nuchal rigidity, or vertebral point tenderness. No Meningismus. Respiratory: Lungs have equal breath sounds bilaterally, clear to auscultation and percussion. No rales, rhonchi or wheezes noted. No increased work of breathing, no retractions or nasal flaring. Abdomen/GI: Soft, non-tender, with normal bowel sounds. No distension or tympany. No guarding or rebound. No evidence of tenderness throughout. Back: No spinal tenderness. No costovertebral tenderness. Full range of motion. MS/ Extremity: Pulses equal, no cyanosis. Neurovascular intact. Full, normal range of motion. 16:11 Cardiovascular: Rate: tachycardic, Rhythm: regular, Pulses: Pulses are 2+ in right radial artery and left radial artery. Heart sounds: murmur, systolic, grade 2 over 6, Edema: is not appreciated, JVD: is not appreciated. 16:11 Skin: Appearance: Color: normal in color, pink, Temperature: normal temperature, Moisture: damp. 16:11 Neuro: Orientation: to person, place, time \T\ situation. Mentation: is normal, Memory: is normal, Cranial nerves: CN I not tested, CN II- XII are normal as tested, extraocular movements are intact, Facial palsy and sensory deficits are absent. Nystagmus is absent. Speech is clear and appropriate. Tongue strength is normal, Motor: moves all fours, strength is 5/5 in all extremities, Sensation: no obvious gross deficits, Gait: not tested. seizure activity, is not displayed by the patient, Abnormal movements: resting tremor, is located in the right hand, left hand, right arm and left arm. Vital Signs: 14:20 Pulse 187; Resp 22; Temp 97.5(TE); Pulse Ox 97% on R/A; Weight 91.63 kg; Height 5 ft. 8 hj in. (172.72 cm); Pain 0/10; 14:39 BP 109 / 72; Pulse 94; Resp 18; Pulse Ox 98% ; sv 15:07 BP 95 / 63; Pulse 97; Resp 20; Pulse Ox 97% on 2 lpm NC; sv 15:42 BP 105 / 92; Pulse 95; Resp 20; Pulse Ox 97% ; sv 16:08 BP 111 / 86; Pulse 99; Resp 19; Pulse Ox 97% on 2 lpm NC; sv 16:40 BP 172 / 92; Pulse 128; Resp 21 S; Pulse Ox 100% on R/A; sg 17:20 Pulse 102; Resp 16; Pulse Ox 95% on R/A; sg 17:25 BP 109 / 71; Pulse 105; Resp 17; Pulse Ox 95% on R/A; sg 18:06 BP 108 / 66; Pulse 100; Resp 15; Pulse Ox 98% on 2 lpm NC; sv 19:02 BP 103 / 72; Pulse 97; Resp 16; Pulse Ox 99% on 2 lpm NC; sv 20:15 BP 112 / 68; Pulse 90; Resp 18; Temp 98.0; Pulse Ox 99% ; ea 14:20 Body Mass Index 30.72 (91.63 kg, 172.72 cm) hj 16:40 pt is very agitated, restless, visual hallucinations reported, haroldo dennison notified, sg orders recieved MDM: 14:24 Patient medically screened. jr8 16:08 Data reviewed: vital signs, nurses notes, lab test result(s), EKG, radiologic studies, jr8 plain films. Data interpreted: Pulse oximetry: on room air is 97 %. Interpretation: normal. Counseling: I had a detailed discussion with the patient and/or guardian regarding: the historical points, exam findings, and any diagnostic results supporting the discharge/admit diagnosis, lab results, radiology results, the need for further work-up and treatment in the hospital. ED course: Patient having visual hallucinations and continued tremors that are worse then normal. HR has decreased. BP maintains at acceptable level. Due to the hallucinations and tremors patient needs to be admitted to ICU for DT's. 12/25 14:33 Order name: Basic Metabolic Panel [facility] 12/25 14:33 Order name: CBC with Diff [facility] 12/25 14:33 Order name: LFT's; Complete Time: 15:54 [facility] 12/25 14:33 Order name: Magnesium; Complete Time: 15:54 [facility] 12/25 14:33 Order name: NT PRO-BNP; Complete Time: 15:54 [facility] 12/25 14:33 Order name: PT-INR; Complete Time: 15:10 [facility] 12/25 14:33 Order name: Troponin (emerg Dept Use Only); Complete Time: 15:54 [facility] 12/25 14:33 Order name: UDS [facility] 12/25 14:33 Order name: ETOH Level; Complete Time: 15:33 [facility] 12/25 14:34 Order name: Basic Metabolic Panel; Complete Time: 15:54 [facility] 12/25 14:34 Order name: CBC with Automated Diff; Complete Time: 15:54 [facility] 12/25 15:07 Order name: Manual Differential; Complete Time: 15:54 [facility] 12/25 18:31 Order name: Urine Dipstick--Ancillary (enter results) 12/25 20:10 Order name: Urine Dipstick-Ancillary; Complete Time: 06:08 [facility] 12/25 14:33 Order name: XRAY Chest (1 view); Complete Time: 15:55 [facility] 12/25 14:33 Order name: EKG; Complete Time: 14:35 [facility] 12/25 14:33 Order name: Cardiac monitoring; Complete Time: 14:48 [facility] 12/25 14:33 Order name: EKG - Nurse/Tech; Complete Time: 14:48 [facility] 12/25 14:33 Order name: IV Saline Lock; Complete Time: 14:48 [facility] 12/25 14:33 Order name: Labs collected and sent; Complete Time: 14:48 [facility] 12/25 14:33 Order name: O2 Per Protocol; Complete Time: 14:48 [facility] 12/25 14:33 Order name: O2 Sat Monitoring; Complete Time: 14:48 jr8 12/25 14:49 Order name: Urine Dipstick-Ancillary (obtain specimen); Complete Time: 18:04 ss Administered Medications: 14:57 Drug: Ativan 1 mg Route: IVP; Site: right wrist; sv 15:19 Follow up: Response: No adverse reaction sv 14:58 Drug: NS 0.9% 1000 ml Route: IV; Rate: 1000 ml; Site: right wrist; sv 16:00 Follow up: Response: No adverse reaction; IV Status: Completed infusion; IV Intake: sv 1000ml 16:07 Drug: Magnesium Sulfate 1 grams Route: IVPB; Infused Over: 1 hrs; Site: right wrist; sv 17:10 Follow up: Response: No adverse reaction; IV Status: Completed infusion; IV Intake: sv 100ml 16:21 Drug: Banana Bag - (NS 0.9% 1000 ml, foLIC Acid 1 mg, Thiamine 100 mg, Multivitamin 1 sv amp) Route: IV; Rate: calculated rate; Site: right wrist; 18:33 Follow up: Response: No adverse reaction; IV Status: Completed infusion; IV Intake: sv 1000ml 16:40 Drug: Ativan 1 mg Route: IVP; Site: right forearm; sg 17:54 Follow up: Response: No adverse reaction sv 16:55 Drug: Ativan 2 mg Route: IVP; Site: right forearm; sg 17:54 Follow up: Response: No adverse reaction sv 17:00 Drug: Ativan 2 mg Route: IVP; Site: right forearm; sg 17:54 Follow up: Response: No adverse reaction sv 17:05 Drug: Ativan 2 mg Route: IVP; Site: right forearm; sg 17:54 Follow up: Response: No adverse reaction sv 17:10 Drug: Valium 10 mg Route: IVP; Site: right forearm; sg 17:54 Follow up: Response: No adverse reaction sv 20:31 Drug: Ativan 1 mg Route: IVP; Site: right antecubital; ea 20:32 Follow up: Response: No adverse reaction ea Disposition: 12/26 05:53 Co-signature as Attending Physician, Britton KELLY I agree with the assessment and freedom plan of care. Disposition: 12/25/18 16:11 Hospitalization ordered by Ayana Moreau for Inpatient Admission. Preliminary diagnosis is Alcohol dependence with withdrawal delirium. - Bed requested for Intensive Care Unit. - Status is Inpatient Admission. ea - Condition is Fair. - Problem is new. - Symptoms have improved. UTI on Admission? No Signatures: Dispatcher [employer] Kayla Pandey, RN RN Valencia Gupta RN MAURISIO Sander Riley RN Britton Childs MD MD cha Smirch, Shelby RN MAURISIO Shoaib Shaffer PA PA jr8 Angelo Peralta RN RN Snow Rick RN RN Corrections: (The following items were deleted from the chart) 12/25 19:06 16:11 Hospitalization Ordered by Ayana Moreau MD for Inpatient Admission. Preliminary diagnosis is Alcohol dependence with withdrawal delirium. Bed requested for Intensive Care Unit. Status is Inpatient Admission. Condition is Fair. Problem is new. Symptoms have improved. UTI on Admission? No. jr8 20:33 19:06 12/25/2018 16:11 Hospitalization Ordered by Ayana Moreau MD for Inpatient ea Admission. Preliminary diagnosis is Alcohol dependence with withdrawal delirium. Bed requested for Intensive Care Unit. Status is Inpatient Admission. Condition is Fair. Problem is new. Symptoms have improved. UTI on Admission? No. mw
[2018-12-25] MEDS ORDERED: MAGNESIUM SULFATE 1 gm IVPB 1 GM/100 ML BAG IV ONE (16:18)
[2018-12-25] MEDS ORDERED: FOLIC ACID 1 MG, MULTIVITAMINS INJ 10 ML, THIAMINE HCL 100 MG in NA CHLORIDE 0.9% 1,000 ML IV ONE (17:00)
[2018-12-25] MEDS ORDERED: DIAZEPAM 10 MG/2 ML INJ SYRINGE ONE (17:31)
[2018-12-25 20:10] LABS: Urine Blood TRACE (NEG); Urine Glucose NEGATIVE (NEG); Urine Protein NEGATIVE (NEG); Urine pH 5.5 (5.0-7.0)
[2018-12-25] MEDS ORDERED: FLUMAZENIL 0.1 MG/ML (5 mL VIAL) IV PRN (20:16)
[2018-12-25] MEDS ORDERED: ONDANSETRON 4 MG/2 ML VIAL IV PRN (20:16)
[2018-12-25] MEDS: LORazepam 2 MG/ML VIAL IV PRN ×2 (20:40→22:30)
--- NOTE | 2018-12-25 22:03 | P.HP ---
Patient History Date of Service: 12/25/18 Reason for admission: EtOH withdrawal History of Present Illness: 63 yr old male with a long standing history of alcohol usage who abruptly stopped 2 days ago brought to ED with tachycardia, tachypnea, visual hallucinations and tremors that have worsened. I was unable to get any hx from patient as he was sedated after receiving Ativan and Valium in the ED for severe agitation. No family at bedsdie and hx obtained from chart review. Patient lives with family. He has a hx of about 20 oz (?) hard liquor a day for many years. Labs remarkable for Cr 1.62, elevated direct bilirubin and AST. He remained sedated at the time of my exam. Conitnued to be tachycardic. Allergies No Known Allergies Allergy (Verified 12/25/18 21:45) Home Medications: Benazepril HCl [Lotensin*] 1 tab PO DAILY 11/23/18 Escitalopram [Lexapro*] 1 tab PO DAILY 11/23/18 Pantoprazole Sodium 1 tab PO [id number] 11/23/18 buPROPion HCl [Bupropion HCl] 3 tab PO DAILY 11/23/18 Armodafinil 50 mg PO DAILY 12/25/18 Gabapentin 300 mg PO TID 12/25/18 - Past Medical/Surgical History Diabetic: No -: Hypertension -: Depression with anxiety -: GERD -: Essential tremors -: Alcohol abuse -: Atrial Valve stenosis -: seizure -: Left knee surgery -: Hernia Repair Psychosocial/ Personal History: Patient is of 35 years. He has 1 child. Patient is retired. - Family History Brother -: Other (see notes) Sister -: Other (see notes) (Tremors) Notes: Half Sister-Breast Cancer Father -: Cancer Mother -: Cancer - Social History Smoking Status: Never smoker Alcohol use: Yes CD- Drugs: No Caffeine use: Yes Place of Residence: Home Review of Systems is unable to be obtained Physical Examination - Vital Signs Temperature: 98.0 F Blood Pressure: 112/68 Pulse: 90 Respirations: 18 - Physical Exam General: In no apparent distress, Other (unarousable, sedated due to medications ) HEENT: Atraumatic, PERRLA, Mucous membr. moist/pink, EOMI, Sclerae nonicteric Neck: Supple, 2+ carotid pulse no bruit, No LAD, Without JVD or thyroid abnormality Respiratory: Clear to auscultation bilaterally, Normal air movement, Other ( Tachypnec) Cardiovascular: Normal S1 S2, Irregular heart rate/rhythm (Tachycardic) Gastrointestinal: Normal bowel sounds, No tenderness Musculoskeletal: No tenderness Integumentary: No rashes Neurological: Other (Unable to test) - Studies Laboratory Data (last 24 hrs) 12/25/18 14:30: PT 11.8, INR 1.00 12/25/18 14:30: WBC 5.9, Hgb 12.5 L, Hct 35.9 L, Plt Count 144 L 12/25/18 14:30: Sodium 135 L, Potassium 3.7, BUN 25 H, Creatinine 1.62 H, Glucose 81, Magnesium 1.7 L, Total Bilirubin 1.0, AST 115 H, ALT 50, Alkaline Phosphatase 70 Assessment and Plan - Problems (Diagnosis) (1) Alcohol withdrawal delirium Current Visit: Yes Status: Acute (2) ARIEL (acute kidney injury) Current Visit: Yes Status: Acute (3) Alcohol abuse Current Visit: No Status: Acute (4) Depression Current Visit: No Status: Chronic (5) Hypertension Current Visit: No Status: Chronic - Plan Admit to ICU CIWA protocol, neuro checks Monitor for withdrawal symptoms - IV ativan/halidol PRN Banana bag and multivitamins Keep NPO at this time due to agitation. Will Add librium once tolerating PO Resume home medications once tolerating PO - Advance Directives Does patient have a Living Will: No Does patient have a Durable POA for Healthcare: No
[2018-12-26] MEDS: HALOPERIDOL LACT 5 MG/ML INJ IM PRN (00:58)
[2018-12-26 04:55] LABS: Absolute Lymphocytes (CBC) 1.5 K/uL (0.7-4.9); Basophils % 0.6 % (0-1.3); Hematocrit 33.3 % (39.6-49.0); Lymphocytes % 34.9 % (15.3-44.8); MPV 7.3 fL (7.6-11.3); RBC Red Blood Cell Count 3.16 M/uL (4.33-5.43)
[2018-12-26 05:10] LABS: Albumin 3.7 g/dL (3.4-5.0); Bilirubin Total 0.8 mg/dL (0.2-1.0); Magnesium 2.2 mg/dL (1.8-2.4); Phosphorus 3.3 mg/dL (2.5-4.9); Protein, Total 6.7 g/dL (6.4-8.2)
[2018-12-26] MEDS: LORazepam 2 MG/ML VIAL IV PRN ×4 (06:00→23:57)
[2018-12-26] MEDS ORDERED: PANTOPRAZOLE 40MG TABLET PO SCH (06:30)
[2018-12-26] MEDS: PANTOPRAZOLE 40 MG INJ IVP SCH ×3 (06:37→20:18)
[2018-12-26] MEDS: SODIUM CHLORIDE 0.9% 10ML INJ IV PRN ×2 (06:38→20:19)
[2018-12-26] MEDS: ENOXAPARIN 40 MG/0.4 ML SQ SCH (08:05)
[2018-12-26] MEDS: FOLIC ACID 1 MG, MULTIVITAMINS INJ 10 ML, THIAMINE HCL 100 MG in NA CHLORIDE 0.9% 1,000 ML IV SCH (09:19)
--- NOTE | 2018-12-26 15:08 | EKG ---
Test Date: 2018-12-25 Test Time: 14:31:18 Pizza Delivery Driver: HELEN MEASUREMENT RESULTS: Intervals: Rate: 94 FL: QRSD: 84 QT: 348 QTc: 435 [place]: P: FL: QRS: 63 T: 53 INTERPRETIVE STATEMENTS: Sinus rhythm with occasional premature ventricular complexes Abnormal ECG Compared to ECG 11/23/2018 13:03:30 Ventricular premature complex(es) now present Electronically Signed On 12-26-18 15:08:32 CDT by Isac Schilling
[2018-12-26 15:56] LABS: Barbiturates NEGATIVE (NEGATIVE); Benzodiazepines POSITIVE (NEGATIVE); Cocaine NEGATIVE (NEGATIVE); METHAMPHETAM NEGATIVE (NEGATIVE); Methadone NEGATIVE (NEGATIVE); Opiates NEGATIVE (NEGATIVE); Phencyclidine NEGATIVE (NEGATIVE); THC Cannibis NEGATIVE (NEGATIVE)
--- NOTE | 2018-12-26 16:15 | P.PN ---
Subjective Date of Service: 12/26/18 Chief Complaint: EtOH withdrawal Patient seen and examined at bedside. No family at bedside. Chart reviewed and case discussed with nursing staff. Continues to be sedated. He did have episodes of agitation overnight, Ativan given. Review of Systems 10-point ROS is otherwise unremarkable Physical Examination - Vital Signs Temperature: 98.0 F Blood Pressure: 129/85 Pulse: 84 Respirations: 17 Pulse Ox (%): 99 - Physical Exam General: In no apparent distress, Obese, Other (Sedated and though arousable to stimuli. He mumbles, and speech does not make sense) HEENT: Atraumatic, PERRLA, EOMI Neck: Supple, JVD not distended Respiratory: Clear to auscultation bilaterally, Normal air movement Cardiovascular: Regular rate/rhythm, Normal S1 S2 Gastrointestinal: Normal bowel sounds, No tenderness Musculoskeletal: No tenderness Integumentary: No rashes Neurological: Other (Unable to test) Assessment And Plan - Current Problems (Diagnosis) (1) Alcohol withdrawal delirium Current Visit: Yes Status: Acute (2) ARIEL (acute kidney injury) Current Visit: Yes Status: Acute (3) Alcohol abuse Current Visit: No Status: Acute (4) Depression Current Visit: No Status: Chronic (5) Hypertension Current Visit: No Status: Chronic - Plan Continue to monitor in ICU Continue CIWA protocol, neuro checks Monitor for withdrawal symptoms - IV ativan/halidol PRN Continue Banana bag and multivitamins Keep NPO at this time due to agitation. Will Add librium once tolerating PO Resume home medications once tolerating PO Critical Care: Yes
[2018-12-26] MEDS: chlordiazePOXIDE HCl 5 MG CAP PO SCH (22:04)
[2018-12-27] MEDS: HALOPERIDOL LACT 5 MG/ML INJ IM PRN (00:40)
[2018-12-27] MEDS: LORazepam 2 MG/ML VIAL IV PRN ×2 (01:34→03:43)
[2018-12-27] MEDS: chlordiazePOXIDE HCl 5 MG CAP PO SCH ×4 (04:00→21:55)
[2018-12-27 05:20] LABS: Absolute Lymphocytes (CBC) 1.5 K/uL (0.7-4.9); Basophils % 0.8 % (0-1.3); Hematocrit 32.1 % (39.6-49.0); Lymphocytes % 29.4 % (15.3-44.8); MPV 7.3 fL (7.6-11.3); RBC Red Blood Cell Count 3.09 M/uL (4.33-5.43)
[2018-12-27 06:07] LABS: ALT/SGPT 38 U/L (12-78); AST/SGOT 62 U/L (15-37); Albumin 3.5 g/dL (3.4-5.0); Alkaline Phosphatase 63 U/L (45-117); BUN Blood Urea Nitrogen 9 mg/dL (7-18); Bicarbonate 28 mmol/L (21-32); Bilirubin Total 0.8 mg/dL (0.2-1.0); Glucose Level 87 mg/dL (74-106); Potassium 3.6 mmol/L (3.5-5.1); Protein, Total 6.8 g/dL (6.4-8.2); Sodium Level 138 mmol/L (136-145)
[2018-12-27] MEDS: PANTOPRAZOLE 40 MG INJ IVP SCH ×2 (08:32→21:09)
[2018-12-27] MEDS: ENOXAPARIN 40 MG/0.4 ML SQ SCH (08:32)
[2018-12-27] MEDS: SODIUM CHLORIDE 0.9% 10ML INJ IV PRN (08:32)
[2018-12-27] MEDS: FOLIC ACID 1 MG, MULTIVITAMINS INJ 10 ML, THIAMINE HCL 100 MG in NA CHLORIDE 0.9% 1,000 ML IV SCH (08:33)
[2018-12-27] MEDS ORDERED: POTASSIUM 25 MEQ EFFERV TAB PO ONE (09:00)
--- NOTE | 2018-12-27 14:54 | P.PN ---
Subjective Date of Service: 12/27/18 Chief Complaint: EtOH withdrawal Subjective: Improving Patient seen and examined at bedside. No family at bedside. Chart reviewed and case discussed with nursing staff. More awake this am. At the time of my exam, he was AAOx3. He has not recieved any ativan so far this am. Started on librium. Review of Systems 10-point ROS is otherwise unremarkable Physical Examination - Vital Signs Temperature: 98.2 F Blood Pressure: 138/87 Pulse: 89 Respirations: 13 Pulse Ox (%): 95 - Physical Exam General: Alert, In no apparent distress, Oriented x3 HEENT: Atraumatic, PERRLA, EOMI Neck: Supple, JVD not distended Respiratory: Clear to auscultation bilaterally, Normal air movement Cardiovascular: Regular rate/rhythm, Normal S1 S2 Gastrointestinal: Normal bowel sounds, No tenderness Musculoskeletal: No tenderness Lymphatics: No axilla or inguinal lymphadenopathy Assessment And Plan - Current Problems (Diagnosis) (1) Alcohol withdrawal delirium Current Visit: Yes Status: Acute (2) ARIEL (acute kidney injury) Current Visit: Yes Status: Acute (3) Alcohol abuse Current Visit: No Status: Acute (4) Depression Current Visit: No Status: Chronic (5) Hypertension Current Visit: No Status: Chronic - Plan Continue to monitor in ICU Continue CIWA protocol, neuro checks Monitor for withdrawal symptoms - IV ativan/halidol PRN Continue Banana bag and multivitamins Continue librium as patient now tolerating PO Resume home medications once tolerating PO
[2018-12-28] MEDS: chlordiazePOXIDE HCl 5 MG CAP PO SCH ×4 (03:52→21:48)
[2018-12-28 06:08] LABS: Absolute Lymphocytes (CBC) 1.6 K/uL (0.7-4.9); Basophils % 1.2 % (0-1.3); Hematocrit 36.8 % (39.6-49.0); MPV 6.9 fL (7.6-11.3); RBC Red Blood Cell Count 3.54 M/uL (4.33-5.43)
[2018-12-28 06:25] LABS: Albumin 3.6 g/dL (3.4-5.0); Bilirubin Total 0.8 mg/dL (0.2-1.0); Potassium 3.7 mmol/L (3.5-5.1); Protein, Total 7.8 g/dL (6.4-8.2)
[2018-12-28] MEDS: FOLIC ACID 1 MG, MULTIVITAMINS INJ 10 ML, THIAMINE HCL 100 MG in NA CHLORIDE 0.9% 1,000 ML IV SCH (09:00)
[2018-12-28] MEDS ORDERED: POTASSIUM 25 MEQ EFFERV TAB PO ONE (09:00)
[2018-12-28] MEDS: PANTOPRAZOLE 40 MG INJ IVP SCH ×2 (09:40→21:48)
[2018-12-28] MEDS: ENOXAPARIN 40 MG/0.4 ML SQ SCH (09:40)
--- NOTE | 2018-12-28 17:06 | P.PN ---
Subjective Date of Service: 12/28/18 Chief Complaint: EtOH withdrawal Subjective: Improving Patient seen and examined at bedside. No family at bedside. Chart reviewed and case discussed with nursing staff. At the time of my exam today, he was AAOx3. He has not recieved any ativan x24hrs. Started on librium. Review of Systems 10-point ROS is otherwise unremarkable Physical Examination - Vital Signs Temperature: 98.8 F Blood Pressure: 129/92 Pulse: 81 Respirations: 15 Pulse Ox (%): 95 - Physical Exam General: Alert, In no apparent distress, Oriented x3, Obese HEENT: Atraumatic, PERRLA, EOMI Neck: Supple, JVD not distended Respiratory: Clear to auscultation bilaterally, Normal air movement Cardiovascular: Regular rate/rhythm, Normal S1 S2 Gastrointestinal: Normal bowel sounds, No tenderness Musculoskeletal: No tenderness Integumentary: No rashes Neurological: Normal speech, Normal tone, Normal affect Lymphatics: No axilla or inguinal lymphadenopathy Assessment And Plan - Current Problems (Diagnosis) (1) Alcohol withdrawal delirium Current Visit: Yes Status: Acute (2) ARIEL (acute kidney injury) Current Visit: Yes Status: Acute (3) Alcohol abuse Current Visit: No Status: Acute (4) Depression Current Visit: No Status: Chronic (5) Hypertension Current Visit: No Status: Chronic - Plan Transfer to floor Continue CIWA protocol, neuro checks Monitor for withdrawal symptoms - IV ativan/halidol PRN. Continue Banana bag and multivitamins Continue librium Resume home medications once tolerating PO Physical therapy evaluation DVT prophylaxis: Lovenox GI prophylaxis: Protonix Diet: Revaluated by speech therapy, advance to regular Disposition: Possible discharge home in the next 24-48 hr.
[2018-12-29] MEDS: chlordiazePOXIDE HCl 5 MG CAP PO SCH ×4 (03:36→21:37)
[2018-12-29 06:06] LABS: Absolute Lymphocytes (CBC) 1.6 K/uL (0.7-4.9); Basophils % 0.9 % (0-1.3); Hematocrit 33.7 % (39.6-49.0); Lymphocytes % 39.5 % (15.3-44.8); MPV 6.9 fL (7.6-11.3); RBC Red Blood Cell Count 3.27 M/uL (4.33-5.43)
[2018-12-29 06:09] LABS: BUN Blood Urea Nitrogen 8 mg/dL (7-18); Bicarbonate 27 mmol/L (21-32); Glucose Level 85 mg/dL (74-106); Potassium 3.8 mmol/L (3.5-5.1); Sodium Level 139 mmol/L (136-145)
[2018-12-29] MEDS: PANTOPRAZOLE 40 MG INJ IVP SCH ×2 (08:32→21:36)
[2018-12-29] MEDS: ENOXAPARIN 40 MG/0.4 ML SQ SCH (08:32)
[2018-12-29] MEDS ORDERED: POTASSIUM CL SA 10 MEQ TAB PO ONE (09:00)
[2018-12-29] MEDS: FOLIC ACID 1 MG, MULTIVITAMINS INJ 10 ML, THIAMINE HCL 100 MG in NA CHLORIDE 0.9% 1,000 ML IV SCH (09:00)
--- NOTE | 2018-12-29 18:45 | P.PN ---
Subjective Date of Service: 12/29/18 Chief Complaint: EtOH withdrawal Patient seen and examined at bedside. No family at bedside. Chart reviewed and case discussed with nursing staff. At the time of my exam today, he was AAOx3. He has not recieved any ativan x24hrs. Started on librium. He is doing well, Tolerating regular diet. He was transferred ou tof the ICU yesterday. No acute events noted overnight. Review of Systems 10-point ROS is otherwise unremarkable Physical Examination - Vital Signs Temperature: 98.0 F Blood Pressure: 127/71 Pulse: 83 Respirations: 17 Pulse Ox (%): 95 - Physical Exam General: Alert, In no apparent distress, Oriented x3 HEENT: Atraumatic, PERRLA, EOMI Neck: Supple, JVD not distended Respiratory: Clear to auscultation bilaterally, Normal air movement Cardiovascular: Regular rate/rhythm, Normal S1 S2 Gastrointestinal: Normal bowel sounds, No tenderness Musculoskeletal: No tenderness Integumentary: No rashes Neurological: Normal speech, Normal tone, Normal affect Lymphatics: No axilla or inguinal lymphadenopathy Assessment And Plan - Current Problems (Diagnosis) (1) Alcohol withdrawal delirium Current Visit: Yes Status: Acute (2) ARIEL (acute kidney injury) Current Visit: Yes Status: Acute (3) Alcohol abuse Current Visit: No Status: Acute (4) Depression Current Visit: No Status: Chronic (5) Hypertension Current Visit: No Status: Chronic - Plan Transfer to floor Continue CIWA protocol, neuro checks - no ativan required x over 24 hrs. Monitor for withdrawal symptoms - IV ativan/halidol PRN. Continue Banana bag and multivitamins Continue librium Resume home medications once tolerating PO Physical therapy evaluation DVT prophylaxis: Lovenox GI prophylaxis: Protonix Diet: Revaluated by speech therapy, advance to regular Disposition: Possible discharge home in the next 24-48 hr. Will need to discuss regarding further rehab
[2018-12-29] MEDS: SODIUM CHLORIDE 0.9% 10ML INJ IV PRN (21:35)
[2018-12-30] MEDS: chlordiazePOXIDE HCl 5 MG CAP PO SCH ×2 (03:29→10:08)
[2018-12-30 06:54] LABS: Potassium 3.6 mmol/L (3.5-5.1)
[2018-12-30] MEDS: ENOXAPARIN 40 MG/0.4 ML SQ SCH (08:29)
[2018-12-30] MEDS: PANTOPRAZOLE 40 MG INJ IVP SCH (09:00)
[2018-12-30] MEDS: FOLIC ACID 1 MG, MULTIVITAMINS INJ 10 ML, THIAMINE HCL 100 MG in NA CHLORIDE 0.9% 1,000 ML IV SCH (09:00)
[2018-12-30] MEDS ORDERED: POTASSIUM CL SA 10 MEQ TAB PO ONE (09:00)
--- NOTE | 2018-12-30 13:38 | P.DS ---
Admission Date: 12/25/18 Discharge Date: 12/30/18 Disposition: ROUTINE DISCHARGE Discharge Condition: FAIR Reason for Admission: EtOH withdrawal - Problems (1) Alcohol withdrawal delirium Status: Acute (2) ARIEL (acute kidney injury) Status: Acute (3) Alcohol abuse Status: Acute (4) Depression Status: Chronic (5) Hypertension Status: Chronic Brief History of Present Illness: 63 yr old male with a long standing history of alcohol usage who abruptly stopped 2 days ago brought to ED with tachycardia, tachypnea, visual hallucinations and tremors that have worsened. I was unable to get any hx from patient as he was sedated after receiving Ativan and Valium in the ED for severe agitation. No family at bedsdie and hx obtained from chart review. Patient lives with family. He has a hx of about 20 oz (?) hard liquor a day for many years. Labs remarkable for Cr 1.62, elevated direct bilirubin and AST. He remained sedated at the time of my exam. Conitnued to be tachycardic. Hospital Course: Patient was admitted for alcohol withdrawal/delirium. He was provided supportive care in the ICU. He was provided with IV medications, IV fluids and multi vitamins. He was on Librium. Symptomatically he improved and therefore was transferred to the floor. He worked well with physical therapy prior to discharge. Alcohol cessation was provided to patient, not ready to have quit alcohol at this time. He otherwise remained stable throughout the stay. He was then discharged home in a safe and stable manner. He will follow up with his primary care physician in 2-3 days. Vital Signs/Physical Exam: Temp Pulse Resp BP Pulse Ox 97.8 F 86 17 127/77 98 12/30/18 08:00 12/30/18 08:00 12/30/18 08:00 12/30/18 08:00 12/30/18 08:00 General: Alert, In no apparent distress, Oriented x3 HEENT: Atraumatic, PERRLA, EOMI Neck: Supple, JVD not distended Respiratory: Clear to auscultation bilaterally, Normal air movement Cardiovascular: Regular rate/rhythm, Normal S1 S2 Gastrointestinal: Normal bowel sounds, No tenderness Musculoskeletal: No tenderness Integumentary: No rashes Neurological: Normal speech, Normal tone, Normal affect Lymphatics: No axilla or inguinal lymphadenopathy Laboratory Data at Discharge: WBC 4.0 K/uL (4.3-10.9) L 12/29/18 05:27 Hgb 12.1 g/dL (13.6-17.9) L 12/29/18 05:27 Hct 33.7 % (39.6-49.0) L 12/29/18 05:27 Plt Count 163 K/uL (152-406) 12/29/18 05:27 PT 11.8 SECONDS (9.5-12.5) 12/25/18 14:30 INR 1.00 12/25/18 14:30 Sodium 137 mmol/L (136-145) 12/30/18 06:19 Potassium 3.6 mmol/L (3.5-5.1) 12/30/18 06:19 BUN 8 mg/dL (7-18) 12/30/18 06:19 Creatinine 1.00 mg/dL (0.55-1.3) 12/30/18 06:19 Glucose 107 mg/dL (74-106) H 12/30/18 06:19 Phosphorus 3.3 mg/dL (2.5-4.9) 12/26/18 04:22 Magnesium 2.2 mg/dL (1.8-2.4) D 12/26/18 04:22 Total Bilirubin 0.8 mg/dL (0.2-1.0) 12/28/18 05:34 AST 58 U/L (15-37) H 12/28/18 05:34 ALT 42 U/L (12-78) 12/28/18 05:34 Alkaline Phosphatase 68 U/L (45-117) 12/28/18 05:34 Home Medications: Benazepril HCl [Lotensin*] 1 tab PO DAILY 11/23/18 Escitalopram [Lexapro*] 1 tab PO DAILY 11/23/18 Pantoprazole Sodium 1 tab PO [id number] 11/23/18 buPROPion HCl [Bupropion HCl] 3 tab PO DAILY 11/23/18 Armodafinil 50 mg PO DAILY 12/25/18 Gabapentin 300 mg PO TID 12/25/18 Patient Discharge Instructions: Please follow up with the primary care physician in 2-3 days. Please return to the emergency room for worsening symptom Diet: AHA Activity: Ad avelino Followup: [place]osun,Fly E, MD [Primary Care Provider] - Time spent managing pt's care (in minutes): 55
== END 2018-12-30 13:30 | disposition home or self-care (01) | DRG 897 ==
LOC: ER 14:16 → ERHOLD 16:46 → 3RD-ICU 20:02 → 2ND 12-29 11:20
PROVIDERS: ADMIT Family Medicine; ATTEND Family Medicine
DX: F10.231 Alcohol dependence with withdrawal delirium (principal); N17.9 Acute kidney failure, unspecified; F32.9 Major depressive disorder, single episode, unspecified; I10 Essential (primary) hypertension; F41.8 Other specified anxiety disorders; K21.9 Gastro-esophageal reflux disease without esophagitis; I35.0 Nonrheumatic aortic (valve) stenosis; E66.9 Obesity, unspecified; Z68.32 Body mass index [BMI] 32.0-32.9, adult
CPT/HCPCS: 36415; 51702; 71045; 80048; 80053; 80076; 80307; 80320; 81003; 83735; 83880; 84100; 84484; 85025; 85610; 92610; 93005; 94760; 97116; 97163; 99285; C9113; J1630; J1650; J3360; J3411; J3475; J7030

== ENCOUNTER 2019-04-03 08:50 | Day surgery (SDC) | payer OTHER ==
[2019-04-02 13:37] LABS: Basophils % 0.7 % (0-1.3); Hematocrit 36.5 % (39.6-49.0); Lymphocytes % 21.2 % (15.3-44.8); MPV 7.1 fL (7.6-11.3); RBC Red Blood Cell Count 3.58 M/uL (4.33-5.43)
[2019-04-02 13:51] LABS: Potassium 4.2 mmol/L (3.5-5.1)
[2019-04-02 13:54] LABS: Protime INR 0.98
[2019-04-03] MEDS ORDERED: NA CHLORIDE 0.9% 500 ML ONE (08:58)
[2019-04-03] MEDS ORDERED: MIDAZOLAM HCL 5 MG/5 ML INJ ONE (10:20)
[2019-04-03] MEDS ORDERED: FENTANYL CITR 100 MCG/2 ML ONE (10:20)
[2019-04-03] MEDS ORDERED: ATROPINE SULF 1 MG/10 ML SYR IV ONE (10:21)
[2019-04-03] MEDS ORDERED: LIDOCAINE 1% MPF 30 ML VIAL ONE (10:21)
[2019-04-03] MEDS ORDERED: HEPA 1000U/500MLS 2,000 UNIT/1,000 ML BAG IV ONE (10:21)
[2019-04-03] MEDS ORDERED: NITROGLYCERIN/D5W 0 MG/0 ML BTL IV ONE (10:21)
[2019-04-03] MEDS ORDERED: NITROGLYCERIN 100 MCG/ML SYR (for cath lab use only) IV ONE (10:21)
[2019-04-03] MEDS ORDERED: NA CHLORIDE 0.9% 100 ML IV ONE (10:21)
[2019-04-03] MEDS ORDERED: NA CHLORIDE 0.9% 0 ML ONE (10:21)
[2019-04-03 12:29] VITALS: TEMP 98.6
[2019-04-03 13:48] VITALS: BP 101/64; O2SAT 98
--- NOTE | 2019-04-03 22:04 | OP ---
Surgeon: Isac Schilling MD Steel Engraver: Yves Loyola. A 63-year-old man. Procedure: Right and left heart catheterization with coronary angiography. Findings: The patient has critical aortic stenosis. Unable to cross the valve. The valve area by e chocardiography is 0.8 sq cm and the peak pressure was 70 mmHg. His right heart catheterization was normal with normal pressures, normal cardiac output. His coronary arteriography was normal. We were unable to do a left ventriculogram. The valve is critically stenotic and unable to cross the valve. He would probably require transesophageal echocardiography guidance to be able to cross the valve w ith the wire. Our recommendation is that the patient undergo open chest aortic valve replacement. Azra Obando has been consulted and will see Dr. Obando later this week or early next week. Procedure In Detail: The patient had critical aortic stenosis with symptoms of dizziness, near synco pe, chest pain, brought to the cardiac labor crew supervisor in a fasting state, prepared and draped in the usual sterile fashion. Right femoral artery, right femoral veins were used. The area over these vessels w as anesthetized with lidocaine. Each vessel was entered individually with an 18-gauge needle. A ricardo rt J-wire was used to cannulate each vessel and a Seldinger technique allowed us to put a 4-Chinese sh eath in the artery and a 7-Chinese sheath in the vein. The right heart catheterization was done first . Combs-Carlton catheter was used. Cardiac outputs were thermodilution and pressures were manometry. A JL4 was used to angiogram the left coronary, 3DRC to angiogram the right. We used a straight wire a nd a pigtail catheter and a 3DRC catheter to try and cross the valve, when it proved to be extremely difficult, we decided to abandon it without trying a lot of other catheters for different shapes and support and use our findings that we had recommend aortic valve surgery. Complications: Complications from the procedure; none. Estimated Blood Loss: 20 mL. WILLEM/MODL Voice ID: [id number] Report ID: [id number]
== END 2019-04-03 13:49 | disposition home or self-care (01) ==
LOC: CCL 08:50
PROVIDERS: ATTEND Internal Medicine
DX: I35.0 Nonrheumatic aortic (valve) stenosis (principal); I10 Essential (primary) hypertension; E78.5 Hyperlipidemia, unspecified
CPT/HCPCS: 85025; 80048; 36415; 85610; 85730; 93456; C1893; C1760; J2250; J3010; J7040; J0583

== ENCOUNTER 2020-11-16 21:24 | Emergency (ER) | payer OTHER ==
--- OUTSIDE RECORDS SUMMARY | 2020-11-16 21:28 | XMS REPORT | Continuity of Care Document ---
:1955 Author Organization [facility] t Address [address] [place] [address] Care Team Providers Name Role Phone Cassidy Wang Primary Care Physician Brandon KELLY, S Attending Clinician Colin KELLY Attending Clinician Beth KELLY, Gene Attending Clinician STANLEY DELGADO Attending Clinician Unavailable Doctor Unassigned, Name Attending Clinician Unavailable Ramsey KELLY Admitting Clinician STANLEY DELGADO Admitting Clinician Unavailable Problems Condition Condition Condition Status Onset Resolution Last Treating Co mments Source Name Details Category Date Date Treatment Clinician Date s/p s/p Disease Active 2018-[address] [facility] Bioprosthe Bioprosthe kes - tic AVR by tic AVR by 00:00: Me amish Holder [place] Danny Delgado 04/09 04/09 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 [facility] Postoperat Postoperat Disease Active [facility] jef jef [facility] - hypovolemi hypovolemi Me amish hair shock, c shock, Center initial initial encounter encounter Acute Acute Disease Active [facility] respirator respirator Rosie kes - y y Medical insufficie insufficie Ce nter ncy ncy Hypertensi Hypertensi Disease Active [facility] on on [facility] Allergies, Adverse Reactions, Alerts Allergy Allergy Status Severity Reaction(s) Onset Inactive Treating Comm ents Source Name Type Date Date Clinician Pollen Propensi Active 2018-[address] Extracts ty to 0-24 nose, [facility] - adverse 00:00: sneezing Medical reaction 00 Center s Family History Family Member Diagnosis Comments Start Date Stop Date Source Natural father Heart attack [facility] Natural mother Cancer [facility] - [facility] Social History Social Habit Start Date Stop Date Quantity Comments Source History SDOH [facility] - Alcohol Std Drinks Medica l Center History SDOH [facility] - Alcohol Binge Medical Laurie ter Sex Assigned At [facility] Rosie kes [facility] [place] Tobacco use and 2019-04-24 2019-04-24 Never used [facility] St Roise kes - exposure 00:00:00 00:00:00 [facility] Alcohol intake 2019-04-24 2019-04-24 [facility] - 00:[facility]:00 00:00:00 of alcohol [facility] (finding) Alcohol Comment 2019-04-10 2019-04-[address] daily [facility] - 00:00[facility]00 00:00:00 Medical Center History SDOH 2019-04-04 2019-04-[address] [facility] - Alcohol Frequency 00:00:00 00:00:00 Medical Center Smoking Status Start Date Stop Date Source Never smoker [facility] Medications Ordered Filled Start Stop Current Ordering Indication Dosage Frequency Signature Comments Components Source Medication Medication Date Date Medication? Clinician (SIG) Name Name loratadine 2018-06 Yes 10mg Take [address] (CLARITIN) 11 by mouth [facility] - 10 mg 11:26: as needed Medical tablet 49 for Center Allergies. fluticasone 2018-06 Yes 1{spray QD [address] [facility] [address] propionate 06-22 } Nasal [facility] - (FLONASE) 11:26: route Medical 50 49 daily. Center mcg/actuati on nasal spray aspirin 81 2018-06- No 81mg QD Take [address] MG EC 06-16 tablet (81 [facility] - tablet 00:00: 23:59 mg total) Medic al 00 :00 by mouth Center daily. colchicine 2018-06- No .6mg QD Take [address] (COLCRYS) 06-16 tablet [facility] - 0.6 mg 00:00: 23:59 (0.6 mg Medical tablet 00 :00 total) by Center mouth daily. l-methylfol 2018-06 Yes 1{tbl} QD Take [address] ate-b2-b6-b 04 tablet by Sanjeev es - 12 14:14: mouth Medical (CEREFOLIN) 28 daily. Center 6-5-50-1 mg Tab atorvastati 2018-06- No 20mg QD Take [address] n (LIPITOR) 06-15 tablet (20 L ukes - 20 MG 00:00: 23:59 mg total) Medica l tablet 00 :00 by mouth Center nightly. metoprolol 2018-06- No 12.5mg Q.5D Take 0.[address] (LOPRESSOR) 06-15 tablets Luke s - 25 MG 00:00: 23:59 (12.5 mg Medical tablet 00 :00 total) by Center mouth 2 (two) times daily. nitroglycer 2018-[address] in 0-17 TABLET [facility] - (NITROSTAT) 00:00: UNDER Medic al 0.4 MG SL 00 TONGUE Center tablet EVERY 5 MINS, UP TO 3 DOSES NEEDED FOR CHEST PAIN omeprazole 2018-06 Yes 40mg QD Take [address] (PRILOSEC) 0-14 by mouth [facility] - 40 MG 00:00: daily. Medical capsule 00 [place] traZODone Yes 50mg QD Take [address] (DESYREL) 9-23 by mouth [facility] - 50 MG 00:00: nightly. Medical tablet 00 [place] buPROPion Yes 300mg QD Take [address] (WELLBUTRIN 9-21 mg by [facility] - XL) 300 MG 00:00: mouth Medica l 24 hr 00 every Center tablet morning. escitalopra Yes 20mg QD Take [address] m oxalate 9-21 by mouth [facility] - (LEXAPRO) 00:00: daily. Medica l 20 MG 00 Center tablet Procedures This patient has no known procedures. Plan of Care Planned Activity Planned Date Details Comments Source Future Scheduled 2022-04-[address] [facility] - Test 00:00:00 (procedure) [code = [facility] 18981116] Future Scheduled 2020-02-[address] [facility] - Test 00:00:00 (#1) [code = Medical Center INFLUENZA VACCINE (#1)] Future Scheduled [address] [facility] - Test 00:00:00 malignant neoplasm Medical C enter of colon (procedure) [code = 393625667] Encounters Start End Encounter Admission Attending Care Care Encounter Source Date/Time Date/Time Type Type Clinicians Facility Department ID 2020-05-21 2020-05-22 Emergency Girish Taylor [facility] 1.2.840 .[id number] 19:04:00 18:10:00 Tasneem Shaw [id number] [place] 4.2.7.2.686 [place] [id number] [id number] 2019-12-01 2019-12-01 Reffabián Campos [facility] [id number] 00:00:00 00:00:00 Kit Slade [id number] [place] [id number] Profess[place] [phone] [address] 2019-11-08 2019-11-08 Reffabián Campos [facility] [id number] 00:00:00 00:00:00 Kit Slade [id number] [place] [id number] Professio [phone] [address] 2019-10-17 2019-10-17 Georgie Campos [facility] [id number] 00:00:00 00:00:00 Kit Slade [id number] [place] [id number] Professio [phone] [address] 2019-09-16 2019-09-16 Reffabián Campos [facility] [id number] 00:00:00 00:00:00 Kit Slade [id number] [place] [id number] Professio [phone] [address] 2019-07-18 2019-07-18 Georgie Campos [facility] [id number] 00:00:00 00:00:00 Kit Slade [id number] [place] [id number] Professio [id number] [facility] 2019-07-17 2019-07-17 JOSÉ MIGUEL Irvin [id number] 00:00:00 00:00:00 Kit Slade [id number] [place] 4.2.7.2.686 Profstacyio [id number] [address] 2018-10-30 2018-10-30 Orders Doctor CHYNA [id number] 00:00:00 00:00:00 Only Unassigned, JANNET 350.1.13.10 [place] [facility] 4.2.7.2.686 [id number] Results Test Description Test Time Test Comments Results Result [facility] e Comments TISSUE EXAM 2019-04-15 Surgical Pathology 18:37:00 Report Case: [id number] Authorizing Provider: Lencho Delgado, Collected: 04/09/2019 Slime KELLY Ordering Location: [facility] Received: 04/09/2019 1223 PERIOPERATIVE SERVICES Pathologist: Jose Alfredo Dozier MD Specimen: Aortic Valve, AORTIC VALVE LEAFLET HEART, AORTIC VALVE, VALVULECTOMY:LEAFLETS WITH NODULAR CALCIFIC ATHEROSCLEROTIC THICKENING Signing Pathologist Direct Phone Line: [phone] ally signed by Jose Alfredo Dozier MD on 04/15/2019 at 6:37 [id number]; [id number] aortic valve stenosisAortic valve leafletReceived fresh with patient's demographic information and surgical accession number are fragments of calcified valvular leaflet, 3.5 x 2 x up to 1 cm in greatest dimension. Sports [employer] section submitted in A1 for decalcification. HL/plPerformed CBC (HEMOGRAM ONLY) 2019-04-15 07:03:00 Test Item Value Reference Range Interpretation Comme nts WHITE BLOOD CELL COUNT (BEAKER) (test code = 775) 3.9 K/ L 3.5- 10.5 RED BLOOD CELL COUNT (BEAKER) (test code = 761) 2.34 M/ L 4.63-6 .08 L HEMOGLOBIN (BEAKER) (test code = 410) 7.8 GM/DL 13.7-17.5 L HEMATOCRIT (BEAKER) (test code = 411) 23.5 % 40.1-51.0 L MEAN CORPUSCULAR VOLUME (BEAKER) (test code = 753) 100.4 fL 79. 0-92.2 H MEAN CORPUSCULAR HEMOGLOBIN (BEAKER) (test code = 751) 33.3 pg 25.7-32.2 H MEAN CORPUSCULAR HEMOGLOBIN CONC (BEAKER) (test code = 752) 33.2 GM/DL 32.3-36.5 RED CELL DISTRIBUTION WIDTH (BEAKER) (test code = 412) 16.5 % 11.6-14.4 H PLATELET COUNT (BEAKER) (test code = 756) 112 K/CU MM 150-450 L MEAN PLATELET VOLUME (BEAKER) (test code = 754) 9.5 fL 9.4-12 .4 NUCLEATED RED BLOOD CELLS (BEAKER) (test code = 413) 0 /100 WBC 0 -0 [id number] 04:42:00 Test Item Value Reference Range Interpretation Comments MAGNESIUM (BEAKER) (test code = 1.8 mg/dL 1.6-2.6 627) BASIC METABOLIC [id number] 04:42:00 Test Item Value Reference Range Interpretation Comments SODIUM (BEAKER) 133 meq/L 136-145 L (test code = 381) POTASSIUM (BEAKER) 3.3 meq/L 3.5-5.1 L (test code = 379) CHLORIDE (BEAKER) 100 meq/L 98-107 (test code = 382) CO2 (BEAKER) (test 25 meq/L 22-29 code = 355) BLOOD UREA NITROGEN 9 mg/dL 7-21 (BEAKER) (test code = 354) CREATININE (BEAKER) 0.71 mg/dL 0.57-1.25 (test code = 358) GLUCOSE RANDOM 89 mg/dL 70-105 (BEAKER) (test code = 652) CALCIUM (BEAKER) 8.5 mg/dL 8.4-10.2 (test code = 697) EGFR (BEAKER) (test 112 mL/min/1.73 ESTIM ATED GFR IS code = 1092) sq m NOT ACCURATE CREATININE CLEARANCE IN PREDICTING GLOMERULAR FILTRATION RATE . ESTIMATED GFR I S NOT APPLICABLE FOR DIALYSIS PATIEN TS. CBC W/PLT COUNT & AUTO [id number] 04:28:00 Test Item Value Reference Range Interpretation Comments WHITE BLOOD CELL COUNT (BEAKER) 4.1 K/ L 3.5-10.5 (test code = 775) RED BLOOD CELL COUNT (BEAKER) 2.19 M/ L 4.63-6.08 L (test code = 761) HEMOGLOBIN (BEAKER) (test code = 7.2 GM/DL 13.7-17.5 L 410) HEMATOCRIT (BEAKER) (test code = 21.6 % 40.1-51.0 L 411) MEAN CORPUSCULAR VOLUME (BEAKER) 98.6 fL 79.0-92.2 H (test code = 753) MEAN CORPUSCULAR HEMOGLOBIN 32.9 pg 25.7-32.2 H (BEAKER) (test code = 751) MEAN CORPUSCULAR HEMOGLOBIN CONC 33.3 GM/DL 32.3-36.5 (BEAKER) (test code = 752) RED CELL DISTRIBUTION WIDTH 16.3 % 11.6-14.4 H (BEAKER) (test code = 412) PLATELET COUNT (BEAKER) (test 108 K/CU MM 150-450 L code = 756) MEAN PLATELET VOLUME (BEAKER) 9.5 fL 9.4-12.4 (test code = 754) NUCLEATED RED BLOOD CELLS 1 /100 WBC 0-0 H (BEAKER) (test code = 413) NEUTROPHILS RELATIVE PERCENT 51 % (BEAKER) (test code = 429) LYMPHOCYTES RELATIVE PERCENT 27 % (BEAKER) (test code = 430) MONOCYTES RELATIVE PERCENT 14 % (BEAKER) (test code = 431) EOSINOPHILS RELATIVE PERCENT 3 % (BEAKER) (test code = 432) BASOPHILS RELATIVE PERCENT 1 % (BEAKER) (test code = 437) NEUTROPHILS ABSOLUTE COUNT 2.08 K/ L 1.78-5.38 (BEAKER) (test code = 670) LYMPHOCYTES ABSOLUTE COUNT 1.08 K/ L 1.32-3.57 L (BEAKER) (test code = 414) MONOCYTES ABSOLUTE COUNT (BEAKER) 0.57 K/ L 0.30-0.82 (test code = 415) EOSINOPHILS ABSOLUTE COUNT 0.11 K/ L 0.04-0.54 (BEAKER) (test code = 416) BASOPHILS ABSOLUTE COUNT (BEAKER) 0.03 K/ L 0.01-0.08 (test code = 417) IMMATURE GRANULOCYTES-RELATIVE 4 % 0-1 H PERCENT (BEAKER) (test code = 2801) CBC W/PLT COUNT & AUTO [id number] 11:55:00 Test Item Value Reference Range Interpretation Comments WHITE BLOOD CELL COUNT (BEAKER) 3.8 K/ L 3.5-10.5 (test code = 775) RED BLOOD CELL COUNT (BEAKER) 2.43 M/ L 4.63-6.08 L (test code = 761) HEMOGLOBIN (BEAKER) (test code = 8.2 GM/DL 13.7-17.5 L 410) HEMATOCRIT (BEAKER) (test code = 24.1 % 40.1-51.0 L 411) MEAN CORPUSCULAR VOLUME (BEAKER) 99.2 fL 79.0-92.2 H (test code = 753) MEAN CORPUSCULAR HEMOGLOBIN 33.7 pg 25.7-32.2 H (BEAKER) (test code = 751) MEAN CORPUSCULAR HEMOGLOBIN CONC 34.0 GM/DL 32.3-36.5 (BEAKER) (test code = 752) RED CELL DISTRIBUTION WIDTH 16.0 % 11.6-14.4 H (BEAKER) (test code = 412) PLATELET COUNT (BEAKER) (test 128 K/CU MM 150-450 L code = 756) MEAN PLATELET VOLUME (BEAKER) 9.9 fL 9.4-12.4 (test code = 754) NUCLEATED RED BLOOD CELLS 1 /100 WBC 0-0 H (BEAKER) (test code = 413) NEUTROPHILS RELATIVE PERCENT 57 % (BEAKER) (test code = 429) LYMPHOCYTES RELATIVE PERCENT 24 % (BEAKER) (test code = 430) MONOCYTES RELATIVE PERCENT 14 % (BEAKER) (test code = 431) EOSINOPHILS RELATIVE PERCENT 1 % (BEAKER) (test code = 432) BASOPHILS RELATIVE PERCENT 1 % (BEAKER) (test code = 437) NEUTROPHILS ABSOLUTE COUNT 2.17 K/ L 1.78-5.38 (BEAKER) (test code = 670) LYMPHOCYTES ABSOLUTE COUNT 0.90 K/ L 1.32-3.57 L (BEAKER) (test code = 414) MONOCYTES ABSOLUTE COUNT (BEAKER) 0.54 K/ L 0.30-0.82 (test code = 415) EOSINOPHILS ABSOLUTE COUNT 0.05 K/ L 0.04-0.54 (BEAKER) (test code = 416) BASOPHILS ABSOLUTE COUNT (BEAKER) 0.04 K/ L 0.01-0.08 (test code = 417) IMMATURE GRANULOCYTES-RELATIVE 3 % 0-1 H PERCENT (BEAKER) (test code = 2801) [id number] 08:43:00 Test Item Value Reference Range Interpretation Comments MAGNESIUM (BEAKER) 1.9 mg/dL 1.6-2.6 Specimen slightly (test code = 627) hemolyzed BASIC METABOLIC [id number] 08:43:00 Test Item Value Reference Range Interpretation Comments SODIUM (BEAKER) 133 meq/L 136-145 L (test code = 381) POTASSIUM (BEAKER) 3.6 meq/L 3.5-5.1 Specimen slightly (test code = 379) hemolyzed CHLORIDE (BEAKER) 99 meq/L 98-107 (test code = 382) CO2 (BEAKER) (test 23 meq/L 22-29 code = 355) BLOOD UREA NITROGEN 9 mg/dL 7-21 (BEAKER) (test code = 354) CREATININE (BEAKER) 0.77 mg/dL 0.57-1.25 Specimen slightly (test code = 358) hemolyzed GLUCOSE RANDOM 91 mg/dL 70-105 (BEAKER) (test code = 652) CALCIUM (BEAKER) 8.7 mg/dL 8.4-10.2 (test code = 697) EGFR (BEAKER) (test 102 mL/min/1.73 ESTIM ATED GFR IS code = 1092) sq m NOT ACCURATE CREATININE CLEARANCE IN PREDICTING GLOMERULAR FILTRATION RATE . ESTIMATED GFR I S NOT APPLICABLE FOR DIALYSIS PATIEN TS. [id number] 03:36:00 Test Item Value Reference Range Interpretation Comments MAGNESIUM (BEAKER) (test code = 1.8 mg/dL 1.6-2.6 627) BASIC METABOLIC [id number] 03:36:00 Test Item Value Reference Range Interpretation Comments SODIUM (BEAKER) 135 meq/L 136-145 L (test code = 381) POTASSIUM (BEAKER) 3.8 meq/L 3.5-5.1 (test code = 379) CHLORIDE (BEAKER) 103 meq/L 98-107 (test code = 382) CO2 (BEAKER) (test 26 meq/L 22-29 code = 355) BLOOD UREA NITROGEN 12 mg/dL 7-21 (BEAKER) (test code = 354) CREATININE (BEAKER) 0.71 mg/dL 0.57-1.25 (test code = 358) GLUCOSE RANDOM 86 mg/dL 70-105 (BEAKER) (test code = 652) CALCIUM (BEAKER) 8.7 mg/dL 8.4-10.2 (test code = 697) EGFR (BEAKER) (test 112 mL/min/1.73 ESTIM ATED GFR IS code = 1092) sq m NOT ACCURATE CREATININE CLEARANCE IN PREDICTING GLOMERULAR FILTRATION RATE . ESTIMATED GFR I S NOT APPLICABLE FOR DIALYSIS PATIEN TS. CBC W/PLT COUNT & AUTO [id number] 03:10:00 Test Item Value Reference Range Interpretation Comments WHITE BLOOD CELL COUNT (BEAKER) 5.0 K/ L 3.5-10.5 (test code = 775) RED BLOOD CELL COUNT (BEAKER) 2.51 M/ L 4.63-6.08 L (test code = 761) HEMOGLOBIN (BEAKER) (test code = 8.4 GM/DL 13.7-17.5 L 410) HEMATOCRIT (BEAKER) (test code = 24.6 % 40.1-51.0 L 411) MEAN CORPUSCULAR VOLUME (BEAKER) 98.0 fL 79.0-92.2 H (test code = 753) MEAN CORPUSCULAR HEMOGLOBIN 33.5 pg 25.7-32.2 H (BEAKER) (test code = 751) MEAN CORPUSCULAR HEMOGLOBIN CONC 34.1 GM/DL 32.3-36.5 (BEAKER) (test code = 752) RED CELL DISTRIBUTION WIDTH 16.1 % 11.6-14.4 H (BEAKER) (test code = 412) PLATELET COUNT (BEAKER) (test 128 K/CU MM 150-450 L code = 756) MEAN PLATELET VOLUME (BEAKER) 10.0 fL 9.4-12.4 (test code = 754) NUCLEATED RED BLOOD CELLS 0 /100 WBC 0-0 (BEAKER) (test code = 413) NEUTROPHILS RELATIVE PERCENT 57 % (BEAKER) (test code = 429) LYMPHOCYTES RELATIVE PERCENT 29 % (BEAKER) (test code = 430) MONOCYTES RELATIVE PERCENT 11 % (BEAKER) (test code = 431) EOSINOPHILS RELATIVE PERCENT 2 % (BEAKER) (test code = 432) BASOPHILS RELATIVE PERCENT 1 % (BEAKER) (test code = 437) NEUTROPHILS ABSOLUTE COUNT 2.84 K/ L 1.78-5.38 (BEAKER) (test code = 670) LYMPHOCYTES ABSOLUTE COUNT 1.44 K/ L 1.32-3.57 (BEAKER) (test code = 414) MONOCYTES ABSOLUTE COUNT (BEAKER) 0.54 K/ L 0.30-0.82 (test code = 415) EOSINOPHILS ABSOLUTE COUNT 0.10 K/ L 0.04-0.54 (BEAKER) (test code = 416) BASOPHILS ABSOLUTE COUNT (BEAKER) 0.04 K/ L 0.01-0.08 (test code = 417) IMMATURE GRANULOCYTES-RELATIVE 1 % 0-1 PERCENT (BEAKER) (test code = 2801) [id number] 06:05:00 Test Item Value Reference Range Interpretation Comments MAGNESIUM (BEAKER) (test code = 1.9 mg/dL 1.6-2.6 627) BASIC METABOLIC [id number] 06:05:00 Test Item Value Reference Range Interpretation Comments SODIUM (BEAKER) 134 meq/L 136-145 L (test code = 381) POTASSIUM (BEAKER) 4.0 meq/L 3.5-5.1 (test code = 379) CHLORIDE (BEAKER) 102 meq/L 98-107 (test code = 382) CO2 (BEAKER) (test 26 meq/L 22-29 code = 355) BLOOD UREA NITROGEN 11 mg/dL 7-21 (BEAKER) (test code = 354) CREATININE (BEAKER) 0.74 mg/dL 0.57-1.25 (test code = 358) GLUCOSE RANDOM 91 mg/dL 70-105 (BEAKER) (test code = 652) CALCIUM (BEAKER) 8.6 mg/dL 8.4-10.2 (test code = 697) EGFR (BEAKER) (test 107 mL/min/1.73 ESTIM ATED GFR IS code = 1092) sq m NOT ACCURATE CREATININE CLEARANCE IN PREDICTING GLOMERULAR FILTRATION RATE . ESTIMATED GFR I S NOT APPLICABLE FOR DIALYSIS PATIEN TS. CBC W/PLT COUNT & AUTO [id number] 05:42:00 Test Item Value Reference Range Interpretation Comments WHITE BLOOD CELL COUNT (BEAKER) 7.5 K/ L 3.5-10.5 (test code = 775) RED BLOOD CELL COUNT (BEAKER) 2.43 M/ L 4.63-6.08 L (test code = 761) HEMOGLOBIN (BEAKER) (test code = 8.0 GM/DL 13.7-17.5 L 410) HEMATOCRIT (BEAKER) (test code = 24.5 % 40.1-51.0 L 411) MEAN CORPUSCULAR VOLUME (BEAKER) 100.8 fL 79.0-92.2 H (test code = 753) MEAN CORPUSCULAR HEMOGLOBIN 32.9 pg 25.7-32.2 H (BEAKER) (test code = 751) MEAN CORPUSCULAR HEMOGLOBIN CONC 32.7 GM/DL 32.3-36.5 (BEAKER) (test code = 752) RED CELL DISTRIBUTION WIDTH 16.5 % 11.6-14.4 H (BEAKER) (test code = 412) PLATELET COUNT (BEAKER) (test 120 K/CU MM 150-450 L code = 756) MEAN PLATELET VOLUME (BEAKER) 10.0 fL 9.4-12.4 (test code = 754) NUCLEATED RED BLOOD CELLS 0 /100 WBC 0-0 (BEAKER) (test code = 413) NEUTROPHILS RELATIVE PERCENT 69 % (BEAKER) (test code = 429) LYMPHOCYTES RELATIVE PERCENT 20 % (BEAKER) (test code = 430) MONOCYTES RELATIVE PERCENT 9 % (BEAKER) (test code = 431) EOSINOPHILS RELATIVE PERCENT 1 % (BEAKER) (test code = 432) BASOPHILS RELATIVE PERCENT 0 % (BEAKER) (test code = 437) NEUTROPHILS ABSOLUTE COUNT 5.22 K/ L 1.78-5.38 (BEAKER) (test code = 670) LYMPHOCYTES ABSOLUTE COUNT 1.51 K/ L 1.32-3.57 (BEAKER) (test code = 414) MONOCYTES ABSOLUTE COUNT (BEAKER) 0.64 K/ L 0.30-0.82 (test code = 415) EOSINOPHILS ABSOLUTE COUNT 0.04 K/ L 0.04-0.54 (BEAKER) (test code = 416) BASOPHILS ABSOLUTE COUNT (BEAKER) 0.03 K/ L 0.01-0.08 (test code = 417) IMMATURE GRANULOCYTES-RELATIVE 1 % 0-1 PERCENT (WESTAKER) (test code = 2801) POCT-GLUCOSE [id number] 18:07:00 Test Item Value Reference Range Interpretation Comments POC-GLUCOSE METER 97 mg/dL 70-110 : TESTED A T [facility] 6720 (МАРИЯ) (test code = [facility], 1538) 66826: Reversing Mill Roller/Techni criss ID = [id number] for IRAIS ESQUIVEL POCT-GLUCOSE [id number] 13:23:00 Test Item Value Reference Range Interpretation Comments POC-GLUCOSE METER 92 mg/dL 70-110 : TESTED A T [facility] 6720 (МАРИЯ) (test code = [facility], 1538) 65125: Reversing Mill Roller/Techni criss ID = [id number] for IRAIS ESQUIVEL TROPONIN [id number] 12:02:00 Test Item Value Reference Range Interpretation Comments TROPONIN I (МАРИЯ) (test code = 0.66 ng/mL 0.00-0.03 [facility]) Troponin I (TnI) levels must be interpreted in the context of the presenting symptoms and the clinical findings. Elevated TnI levels indicate myocardial damage, but are not specific for ischemic heart disease. Elevated TnI levels are seen in patients with other cardiac conditions (including myocarditis and congestive heart failure), and slight TnI elevations occur in patients with other conditions, including sepsis, renal failure, acidosis, acute neurological disease, and persistent tachyarrhythmia.POCT-GLUCOSE [id number] 08:03:00 Test Item Value Reference Range Interpretation Comments POC-GLUCOSE METER 99 mg/dL 70-110 : TESTED A T [facility] 6720 (МАРИЯ) (test code = [facility], 1538) 18814: Reversing Mill Roller/Techni criss ID = [id number] for IRAIS ESQUIVEL RAD, CHEST, 1 VIEW, NON [id number] 07:02:00Reason for exam:->chest tubeShould this be performed at the bedside?->YesFINAL REPORT CLINICAL INDICATION: Support lines. Comparison: 04/10/2019 The c ardiomediastinal contours are stable. Central pulmonary vascular prominence and bilateral parenchymal and pleural opacities are similar to previous. There is no pneumothorax. A right IJ CVC has been removed. Signed: Ralph New MDR[place] Verified Date/Time: 04/11/2019 07:02:55 TROPONIN [id number] 03:58:00 Test Item Value Reference Range Interpretation Comments TROPONIN I (BEAKER) (test code = 0.89 ng/mL 0.00-0.03 397) Troponin I (TnI) levels must be interpreted in the context of the presenting symptoms and the clinical findings. Elevated TnI levels indicate myocardial damage, but are not specific for ischemic heart disease. Elevated TnI levels are seen in patients with other cardiac conditions (including myocarditis and congestive heart failure), and slight TnI elevations occur in patients with other conditions, including sepsis, renal failure, acidosis, acute neurological disease, and persistent tachyarrhythmia.[id number] 03:34:00 Test Item Value Reference Range Interpretation Comments PHOSPHORUS (BEAKER) (test code = 2.4 mg/dL 2.3-4.7 604) [id number] 03:34:00 Test Item Value Reference Range Interpretation Comments MAGNESIUM (BEAKER) (test code = 2.0 mg/dL 1.6-2.6 627) BASIC METABOLIC [id number] 03:34:00 Test Item Value Reference Range Interpretation Comments SODIUM (BEAKER) 137 meq/L 136-145 (test code = 381) POTASSIUM (BEAKER) 4.1 meq/L 3.5-5.1 (test code = 379) CHLORIDE (BEAKER) 107 meq/L 98-107 (test code = 382) CO2 (BEAKER) (test 26 meq/L 22-29 code = 355) BLOOD UREA NITROGEN 13 mg/dL 7-21 (BEAKER) (test code = 354) CREATININE (BEAKER) 0.79 mg/dL 0.57-1.25 (test code = 358) GLUCOSE RANDOM 118 mg/dL 70-105 H (BEAKER) (test code = 652) CALCIUM (BEAKER) 8.5 mg/dL 8.4-10.2 (test code = 697) EGFR (BEAKER) (test 99 mL/min/1.73 ESTIMA CHANTELLE GFR IS code = 1092) sq m NOT ACCURATE CREATININE CLEARANCE IN PREDICTING GLOMERULAR FILTRATION RATE . ESTIMATED GFR I S NOT APPLICABLE FOR DIALYSIS PATIEN TS. CBC (HEMOGRAM ONLY)2019-04-11 03:05:00 Test Item Value Reference Range Interpretation Comments WHITE BLOOD CELL COUNT (BEAKER) 8.0 K/ L 3.5-10.5 (test code = 775) RED BLOOD CELL COUNT (BEAKER) 2.50 M/ L 4.63-6.08 L (test code = 761) HEMOGLOBIN (BEAKER) (test code = 8.3 GM/DL 13.7-17.5 L 410) HEMATOCRIT (BEAKER) (test code = 24.7 % 40.1-51.0 L 411) MEAN CORPUSCULAR VOLUME (BEAKER) 98.8 fL 79.0-92.2 H (test code = 753) MEAN CORPUSCULAR HEMOGLOBIN 33.2 pg 25.7-32.2 H (BEAKER) (test code = 751) MEAN CORPUSCULAR HEMOGLOBIN CONC 33.6 GM/DL 32.3-36.5 (BEAKER) (test code = 752) RED CELL DISTRIBUTION WIDTH 17.2 % 11.6-14.4 H (BEAKER) (test code = 412) PLATELET COUNT (BEAKER) (test 112 K/CU MM 150-450 L code = 756) MEAN PLATELET VOLUME (BEAKER) 10.1 fL 9.4-12.4 (test code = 754) NUCLEATED RED BLOOD CELLS 0 /100 WBC 0-0 (BEAKER) (test code = 413) POCT-GLUCOSE [id number] 22:10:00 Test Item Value Reference Range Interpretation Comments POC-GLUCOSE METER 139 mg/dL 70-110 H : TESTED A T [facility] 6720 (BEAKER) (test code = [facility], 1538) [id number]: Reversing Mill Roller/Techni criss ID = [id number] for LYUBOV MARMOLEJO POCT-GLUCOSE [id number] 21:27:00 Test Item Value Reference Range Interpretation Comments POC-GLUCOSE METER 126 mg/dL 70-110 H : TESTED A T [facility] 6720 (BEAKER) (test code = [facility] [place], 1538) [id number]: Reversing Mill Roller/Techni criss ID = [id number] for Cr uz, Natty POCT-GLUCOSE [id number] 12:13:00 Test Item Value Reference Range Interpretation Comments POC-GLUCOSE METER 190 mg/dL 70-110 H : TESTED A T BSC 6720 (BEAKER) (test code = GERALD Schmitz [facility], 1538) [id number]: Reversing Mill Roller/Techni criss ID = [id number] for OM MIRELA, ALICEA RAD, CHEST, 1 VIEW, NON [id number] 04:52:00while patient is intubated or has chest tubes.Reason for exam:->Status post CV SurgeryShould thisbe performed at the bedside?->YesFINAL REPORT RAD, CHEST, 1 VIEW, NON DEPT INDICATION: Status post CV Surgery COMPARISON: Prior day's exam FINDINGS: Portable frontal view of the chest. IMPRESSION: Support Lines: Interval extubation and removal of the previously seen enteric tube. Interval repositioning of the drain overlying mediastinum, correlate clinically. Otherwise unchanged support apparatus.Lungs and pleura: Decreased lung volumes. Slight interval increase in bilateral pleural effusions. No pneumothorax. Heart and mediastinum: Stable contours. Stable surgical changes.Additional findings: None. Signed: Aliyah Cortés Verified Date/Time: 04/10/2019 04:52:01 CBC (HEMOGRAM ONLY)2019-04-10 03:54:00 Test Item Value Reference Range Interpretation Comments WHITE BLOOD CELL COUNT (BEAKER) 4.9 K/ L 3.5-10.5 (test code = 775) RED BLOOD CELL COUNT (BEAKER) 2.31 M/ L 4.63-6.08 L (test code = 761) HEMOGLOBIN (BEAKER) (test code = 7.8 GM/DL 13.7-17.5 L 410) HEMATOCRIT (BEAKER) (test code = 22.8 % 40.1-51.0 L 411) MEAN CORPUSCULAR VOLUME (BEAKER) 98.7 fL 79.0-92.2 H (test code = 753) MEAN CORPUSCULAR HEMOGLOBIN 33.8 pg 25.7-32.2 H (BEAKER) (test code = 751) MEAN CORPUSCULAR HEMOGLOBIN CONC 34.2 GM/DL 32.3-36.5 (BEAKER) (test code = 752) RED CELL DISTRIBUTION WIDTH 17.0 % 11.6-14.4 H (BEAKER) (test code = 412) PLATELET COUNT (BEAKER) (test code 96 K/CU MM 150-450 L = 756) MEAN PLATELET VOLUME (BEAKER) 10.0 fL 9.4-12.4 (test code = 754) NUCLEATED RED BLOOD CELLS (BEAKER) 0 /100 WBC 0-0 (test code = 413) [id number] 03:40:00 Test Item Value Reference Range Interpretation Comments PHOSPHORUS (BEAKER) (test code = 4.4 mg/dL 2.3-4.7 604) [id number] 03:40:00 Test Item Value Reference Range Interpretation Comments MAGNESIUM (BEAKER) (test code = 1.9 mg/dL 1.6-2.6 627) BASIC METABOLIC [id number] 03:40:00 Test Item Value Reference Range Interpretation Comments SODIUM (BEAKER) 141 meq/L 136-145 (test code = 381) POTASSIUM (BEAKER) 4.4 meq/L 3.5-5.1 (test code = 379) CHLORIDE (BEAKER) 112 meq/L 98-107 H (test code = 382) CO2 (BEAKER) (test 23 meq/L 22-29 code = 355) BLOOD UREA NITROGEN 11 mg/dL 7-21 (BEAKER) (test code = 354) CREATININE (BEAKER) 0.88 mg/dL 0.57-1.25 (test code = 358) GLUCOSE RANDOM 125 mg/dL 70-105 H (BEAKER) (test code = 652) CALCIUM (BEAKER) 8.3 mg/dL 8.4-10.2 L (test code = 697) EGFR (BEAKER) (test 87 mL/min/1.73 ESTIMA CHANTELLE GFR IS code = 1092) sq m NOT ACCURATE CREATININE CLEARANCE IN PREDICTING GLOMERULAR FILTRATION RATE . ESTIMATED GFR I S NOT APPLICABLE FOR DIALYSIS PATIEN TS. POCT-GLUCOSE [id number] 23:09:00 Test Item Value Reference Range Interpretation Comments POC-GLUCOSE METER 124 mg/dL 70-110 H : TESTED A T BSC 6720 (BEAKER) (test code = [facility], 1538) [address]: Reversing Mill Roller/Techni criss ID = [id number] for CLAUDIA ERICKSON POCT-GLUCOSE [id number] 18:45:00 Test Item Value Reference Range Interpretation Comments POC-GLUCOSE METER 145 mg/dL 70-110 H : TESTED A T BSC 6720 (BEAKER) (test code = [facility], 1538) [id number]: Reversing Mill Roller/Techni criss ID = [id number] for Brown Santos POCT-GLUCOSE [id number] 17:16:00 Test Item Value Reference Range Interpretation Comments POC-GLUCOSE METER 154 mg/dL 70-110 H : Will Rep eat Test: (BEAKER) (test code = TESTED AT [facility] 6720 1538) [facility], [address]: Reversing Mill Roller/Techni criss ID = [id number] for IVAN HUSSEIN BLOOD GAS, [id number] 16:11:00 Test Item Value Reference Range Interpretation Comments PH ARTERIAL (BEAKER) (test code = 7.41 7.35-7.45 383) PCO2 ARTERIAL (BEAKER) (test code 39 mmHg 35-45 = 384) PO2 ARTERIAL (BEAKER) (test code 159 mmHg 80-90 H = 385) O2 SATURATION ARTERIAL (BEAKER) 99.1 % 96.0-97.0 H (test code = 386) HCO3 ARTERIAL (BEAKER) (test code 24 mmol/L 21-29 = 388) BASE EXCESS ARTERIAL (BEAKER) -0.3 mmol/L -2.0-3.0 (test code = 387) PATIENT TEMPERATURE (BEAKER) 36.7 C (test code = 1818) FIO2 (BEAKER) (test code = 1819) 40.0 % [id number] 14:13:00 Test Item Value Reference Range Interpretation Comments MAGNESIUM (BEAKER) (test code = 1.6 mg/dL 1.6-2.6 627) RAD, CHEST, 1 VIEW, NON [id number] 13:42:00Reason for exam:->Status post CV Surgery post op day 0Should this be performed at the bedside?->YesFINAL REPORT TECHNIQUE: Frontal chest radiograph dated 04/09/2019. CLINICAL HISTORY: Status post CV surgery COMPARISON STUDY: Chest radiographs dated 04/04/2019 Impression:Tracheostomy cannula is 5.4 cm above the ken. Right internal jugular venous catheter tip projects over the region of the superior vena cava/right atrial junction. Enteric tube is seen with the tip below the edge of the film. A mediastinal drain is present. Left retrocardiac atelectasis is seen. No pleural effusion or pneumothorax. Cardiomediastinal silhouette is unremarkable. No pulmonary edema. Sternotomy wires are intact and well aligned. Signed: Bora Espino MDReport Verified Date/Time: 2018 13:42:07 Reading Location: [facility] Reading Room CBC W/PLT COUNT & AUTO [id number] 13:21:00 Test Item Value Reference Range Interpretation Comments WHITE BLOOD CELL COUNT (BEAKER) 3.4 K/ L 3.5-10.5 L (test code = 775) RED BLOOD CELL COUNT (BEAKER) 2.66 M/ L 4.63-6.08 L (test code = 761) HEMOGLOBIN (BEAKER) (test code = 8.9 GM/DL 13.7-17.5 L 410) HEMATOCRIT (BEAKER) (test code = 26.2 % 40.1-51.0 L 411) MEAN CORPUSCULAR VOLUME (BEAKER) 98.5 fL 79.0-92.2 H (test code = 753) MEAN CORPUSCULAR HEMOGLOBIN 33.5 pg 25.7-32.2 H (BEAKER) (test code = 751) MEAN CORPUSCULAR HEMOGLOBIN CONC 34.0 GM/DL 32.3-36.5 (BEAKER) (test code = 752) RED CELL DISTRIBUTION WIDTH 15.8 % 11.6-14.4 H (BEAKER) (test code = 412) PLATELET COUNT (BEAKER) (test 113 K/CU MM 150-450 L code = 756) MEAN PLATELET VOLUME (BEAKER) 9.5 fL 9.4-12.4 (test code = 754) NUCLEATED RED BLOOD CELLS 0 /100 WBC 0-0 (BEAKER) (test code = 413) (CELLAVISION MANUAL DIFF)2019-04-09 13:21:00 Test Item Value Reference Range Interpretation Comments NEUTROPHILS - REL 68 % (CELLAVISION)(BEAKER) (test code = 2816) LYMPHOCYTES - REL 16 % (CELLAVISION)(BEAKER) (test code = 2817) MONOCYTES - REL 3 % (CELLAVISION)(BEAKER) (test code = 2818) BANDS - REL (CELLAVISION)(BEAKER) 12 % 0-10 H (test code = 2826) ATYPICAL LYMPHOCYTES - REL 1 % 0-0 H (CELLAVISION)(BEAKER) (test code = 2829) NEUTROPHILS - ABS 2.31 K/ul 1.78-5.38 (CELLAVISION)(BEAKER) (test code = 2830) LYMPHOCYTES - ABS 0.54 K/ul 1.32-3.57 L (CELLAVISION)(BEAKER) (test code = 2831) MONOCYTES - ABS 0.10 K/uL 0.30-0.82 L (CELLAVISION)(BEAKER) (test code = 2832) BANDS - ABS (CELLAVISION)(BEAKER) 0.41 K/uL 0.00-0.80 (test code = 2840) ATYPICAL LYMPHOCYTES - ABS 0.03 K/uL 0.00-0.00 H (CELLAVISION)(BEAKER) (test code = 2858) TOTAL COUNTED (BEAKER) (test code = 100 1351) WBC MORPHOLOGY (BEAKER) (test code Normal = 487) PLT MORPHOLOGY (BEAKER) (test code Normal = 486) POLYCHROMATOPHILLIC RBCS(BEAKER) 1+ few (test code = 478) ARTIFACT (CELLAVISION)(BEAKER) Present (test code = 3432) PLATELET CONCENTRATION Decreased (CELLAVISION)(BEAKER) (test code = 3438) Received comment: User comments: Slide comments:[id number] 13:20:00 Test Item Value Reference Range Interpretation Comments FIBRINOGEN LEVEL (BEAKER) (test 222 mg/dl 225-434 L code = 658) [id number] 13:20:00 Test Item Value Reference Range Interpretation Comments PARTIAL THROMBOPLASTIN TIME 34.1 seconds 22.5-36.0 (BEAKER) (test code = 760) PROTHROMBIN [id number] 13:19:00 Test Item Value Reference Range Interpretation Comments PROTIME (BEAKER) (test code = 19.1 seconds 11.9-14.2 H 759) INR (BEAKER) (test code = 370) 1.7 <=5.9 Effective 11/07/2018: PT Reference Range ChangeNew: 11.9-14.2 Previous: 11.7- 14.7RECOMMENDED COUMADIN/WARFARIN INR THERAPY RANGESSTANDARD DOSE: 2.0-3.0 Includes: PROPHYLAXIS for venous thrombosis, systemic embolization; TREATMENT for venous thrombosis and/or pulmonary embolus.HIGH RISK: Target INR is2.5-3.5 for patients wiht mechanical heart valves.[id number] 13:17:00 Test Item Value Reference Range Interpretation Comments PHOSPHORUS (BEAKER) (test code = 3.5 mg/dL 2.3-4.7 604) BASIC METABOLIC [id number] 13:17:00 Test Item Value Reference Range Interpretation Comments SODIUM (BEAKER) 139 meq/L 136-145 (test code = 381) POTASSIUM (BEAKER) 4.7 meq/L 3.5-5.1 (test code = 379) CHLORIDE (BEAKER) 111 meq/L 98-107 H (test code = 382) CO2 (BEAKER) (test 24 meq/L 22-29 code = 355) BLOOD UREA NITROGEN 12 mg/dL 7-21 (BEAKER) (test code = 354) CREATININE (BEAKER) 0.88 mg/dL 0.57-1.25 (test code = 358) GLUCOSE RANDOM 167 mg/dL 70-105 H (BEAKER) (test code = 652) CALCIUM (BEAKER) 9.0 mg/dL 8.4-10.2 (test code = 697) EGFR (BEAKER) (test 87 mL/min/1.73 ESTIMA CHANTELLE GFR IS code = 1092) sq m NOT ACCURATE CREATININE CLEARANCE IN PREDICTING GLOMERULAR FILTRATION RATE . ESTIMATED GFR I S NOT APPLICABLE FOR DIALYSIS PATIEN TS. LACTIC ACID, [id number] 13:13:00 Test Item Value Reference Range Interpretation Comments LACTATE BLOOD ARTERIAL (2) 0.9 mmol/L 0.5-2.2 (BEAKER) (test code = 2874) CALCIUM, [id number] 13:03:00 Test Item Value Reference Range Interpretation Comments CALCIUM IONIZED (BEAKER) (test 1.19 mmol/L 1.12-1.27 code = 698) PH, BLOOD (BEAKER) (test code = 7.36 1810) BLOOD GAS, [id number] 13:02:00 Test Item Value Reference Range Interpretation Comments PH ARTERIAL (BEAKER) (test code = 7.36 7.35-7.45 383) PCO2 ARTERIAL (BEAKER) (test code 42 mmHg 35-45 = 384) PO2 ARTERIAL (BEAKER) (test code 201 mmHg 80-90 H = 385) O2 SATURATION ARTERIAL (BEAKER) 99.3 % 96.0-97.0 H (test code = 386) HCO3 ARTERIAL (BEAKER) (test code 23 mmol/L 21-29 = 388) BASE EXCESS ARTERIAL (BEAKER) -2.0 mmol/L -2.0-3.0 (test code = 387) PATIENT TEMPERATURE (BEAKER) 37.0 C (test code = 1818) FIO2 (BEAKER) (test code = 1819) 60.0 % OXYGEN SATURATION, [id number] 12:56:00 Test Item Value Reference Range Interpretation Comments O2 SATURATION (MEASURED) (BEAKER) 76.3 % (test code = 1455) THROMBOELASTOGRAPH (TEG)2019-04-09 12:29:00 Test Item Value Reference Range Interpretation Comments TEG ACTIVATED CLOTTING TIME 7.0 minutes 4.0-7.0 (BEAKER) (test code = 1407) TEG FIBRINOGEN ACTIVITY (BEAKER) 69.3 degrees 61.0-73.0 (test code = 1408) TEG PLT. AGGREGATION (BEAKER) 57.1 MM 55.0-65.0 (test code = 1409) TGH ACTIVATED CLOTTING TIME 6.7 minutes 4.0-7.0 (BEAKER) (test code = 1411) TGH FIBRINOGEN ACTIVITY (BEAKER) 71.6 degrees 61.0-73.0 (test code = 1412) TGH PLT. AGGREGATION (BEAKER) 59.5 MM 55.0-65.0 (test code = 1413) [id number] 12:03:00 Test Item Value Reference Range Interpretation Comments FIBRINOGEN LEVEL (BEAKER) (test 224 mg/dl 225-434 L code = 658) [id number] 12:03:00 Test Item Value Reference Range Interpretation Comments PARTIAL THROMBOPLASTIN TIME 37.1 seconds 22.5-36.0 H (BEAKER) (test code = 760) PROTHROMBIN [id number] 12:02:00 Test Item Value Reference Range Interpretation Comments PROTIME (BEAKER) (test code = 19.4 seconds 11.9-14.2 H 759) INR (BEAKER) (test code = 370) 1.7 <=5.9 Effective 11/07/2018: PT Reference Range ChangeNew: 11.9-14.2 Previous: 11.7- 14.7RECOMMENDED COUMADIN/WARFARIN INR THERAPY RANGESSTANDARD DOSE: 2.0-3.0 Includes: PROPHYLAXIS for venous thrombosis, systemic embolization; TREATMENT for venous thrombosis and/or pulmonary embolus.HIGH RISK: Target INR is2.5-3.5 for patients wiht mechanical heart valves.PLATELET [id number] 11:51:00 Test Item Value Reference Range Interpretation Comments PLATELET COUNT (BEAKER) (test 116 K/CU MM 150-450 L code = 756) POTASSIUM-STAT [id number] 11:47:00 Test Item Value Reference Range Interpretation Comments POTASSIUM (BEAKER) (test code = 4.8 meq/L 3.6-5.5 379) BLOOD GAS, [id number] 11:47:00 Test Item Value Reference Range Interpretation Comments PH ARTERIAL (BEAKER) (test code = 7.32 7.35-7.45 L 383) PCO2 ARTERIAL (BEAKER) (test code 47 mmHg 35-45 H = 384) PO2 ARTERIAL (BEAKER) (test code 331 mmHg 80-90 H = 385) O2 SATURATION ARTERIAL (BEAKER) 99.7 % 96.0-97.0 H (test code = 386) HCO3 ARTERIAL (BEAKER) (test code 24 mmol/L 21-29 = 388) BASE EXCESS ARTERIAL (BEAKER) -2.4 mmol/L -2.0-3.0 L (test code = 387) PATIENT TEMPERATURE (BEAKER) 35.9 C (test code = 1818) FIO2 (BEAKER) (test code = 1819) 97.0 % CALCIUM, [id number] 11:47:00 Test Item Value Reference Range Interpretation Comments CALCIUM IONIZED (BEAKER) (test 1.08 mmol/L 1.12-1.27 L code = 698) PH, BLOOD (BEAKER) (test code = 7.30 1810) GLUCOSE-STAT [id number] 11:47:00 Test Item Value Reference Range Interpretation Comments GLUCOSE RANDOM (BEAKER) (test code 175 mg/dL 70-110 H = 652) SODIUM NA-STAT [id number] 11:47:00 Test Item Value Reference Range Interpretation Comments SODIUM (BEAKER) (test code = 381) 133 meq/L 135-148 L HGB/HCT (H&H) - STAT [id number] 11:47:00 Test Item Value Reference Range Interpretation Comments HEMOGLOBIN (BEAKER) (test code = 8.1 g/dL 13.0-16.8 L 410) HEMATOCRIT (BEAKER) (test code = 24.0 % 40.0-50.0 L 411) THROMBOELASTOGRAPH (TEG)2019-04-09 11:27:00 Test Item Value Reference Range Interpretation Comments TEG ACTIVATED CLOTTING TIME 10.3 minutes 4.0-7.0 H (BEAKER) (test code = 1407) TEG FIBRINOGEN ACTIVITY (BEAKER) 64.5 degrees 61.0-73.0 (test code = 1408) TEG PLT. AGGREGATION (BEAKER) 57.2 MM 55.0-65.0 (test code = 1409) TGH ACTIVATED CLOTTING TIME 10.3 minutes 4.0-7.0 H (BEAKER) (test code = 1411) TGH FIBRINOGEN ACTIVITY (BEAKER) 60.4 degrees 61.0-73.0 L (test code = 1412) TGH PLT. AGGREGATION (BEAKER) 52.2 MM 55.0-65.0 L (test code = 1413) BLOOD GAS, [id number] 11:17:00 Test Item Value Reference Range Interpretation Comments PH ARTERIAL (BEAKER) (test code = 7.36 7.35-7.45 383) PCO2 ARTERIAL (BEAKER) (test code 42 mmHg 35-45 = 384) PO2 ARTERIAL (BEAKER) (test code 324 mmHg 80-90 H = 385) O2 SATURATION ARTERIAL (BEAKER) 99.7 % 96.0-97.0 H (test code = 386) HCO3 ARTERIAL (BEAKER) (test code 23 mmol/L - = 388) BASE EXCESS ARTERIAL (BEAKER) -2.3 mmol/L -2.0-3.0 L (test code = 387) PATIENT TEMPERATURE (BEAKER) 36.3 C (test code = 1818) FIO2 (BEAKER) (test code = 1819) 91.0 % GLUCOSE-STAT [id number] 11:17:00 Test Item Value Reference Range Interpretation Comments GLUCOSE RANDOM (BEAKER) (test code 149 mg/dL 70-110 H = 652) HGB/HCT (H&H) - STAT [id number] 11:17:00 Test Item Value Reference Range Interpretation Comments HEMOGLOBIN (BEAKER) (test code = 8.5 g/dL 13.0-16.8 L 410) HEMATOCRIT (BEAKER) (test code = 25.0 % 40.0-50.0 L 411) SODIUM NA-STAT [id number] 11:17:00 Test Item Value Reference Range Interpretation Comments SODIUM (BEAKER) (test code = 381) 133 meq/L 135-148 L POTASSIUM-STAT [id number] 11:16:00 Test Item Value Reference Range Interpretation Comments POTASSIUM (BEAKER) (test code = 4.9 meq/L 3.6-5.5 379) [id number] 11:10:00 Test Item Value Reference Range Interpretation Comments ACTIVATED CLOTTING TIME 125 sec Refe rence Range: (BEAKER) (test code = 74-137 seconds, 441) Baseline/TESTED AT [address] [address] [id number] 11:10:00 Test Item Value Reference Range Interpretation Comments ACTIVATED CLOTTING TIME 549 sec Refe rence Range: (BEAKER) (test code = 74-137 seconds, 441) Baseline/TESTED AT [address] [address] [id number] 11:10:00 Test Item Value Reference Range Interpretation Comments ACTIVATED CLOTTING TIME 675 sec Refe rence Range: (BEAKER) (test code = 74-137 seconds, 441) Baseline/TESTED AT [address] [place] [address] [id number] 11:10:00 Test Item Value Reference Range Interpretation Comments ACTIVATED CLOTTING TIME 885 sec Refe rence Range: (BEAKER) (test code = 74-137 seconds, 441) Baseline/TESTED AT [facility] [address] [facility] [address] [id number] 11:10:00 Test Item Value Reference Range Interpretation Comments ACTIVATED CLOTTING TIME 643 sec Refe rence Range: (BEAKER) (test code = 74-137 seconds, 441) Baseline/TESTED AT [place] [id number] [facility] [address] [id number] 10:55:00 Test Item Value Reference Range Interpretation Comments FIBRINOGEN LEVEL (BEAKER) (test 228 mg/dl 225-434 code = 658) [id number] 10:55:00 Test Item Value Reference Range Interpretation Comments PARTIAL THROMBOPLASTIN TIME 41.1 seconds 22.5-36.0 H (BEAKER) (test code = 760) PROTHROMBIN [id number] 10:54:00 Test Item Value Reference Range Interpretation Comments PROTIME (BEAKER) (test code = 21.6 seconds 11.9-14.2 H 759) INR (BEAKER) (test code = 370) 2.0 <=5.9 Effective 11/07/2018: PT Reference Range ChangeNew: 11.9-14.2 Previous: 11.7- 14.7RECOMMENDED COUMADIN/WARFARIN INR THERAPY RANGESSTANDARD DOSE: 2.0-3.0 Includes: PROPHYLAXIS for venous thrombosis, systemic embolization; TREATMENT for venous thrombosis and/or pulmonary embolus.HIGH RISK: Target INR is2.5-3.5 for patients wiht mechanical heart valves.PLATELET [id number] 10:44:00 Test Item Value Reference Range Interpretation Comments PLATELET COUNT (BEAKER) (test code 83 K/CU MM 150-450 L = 756) BLOOD GAS, [id number] 10:44:00 Test Item Value Reference Range Interpretation Comments PH ARTERIAL (BEAKER) (test code = 7.41 7.35-7.45 383) PCO2 ARTERIAL (BEAKER) (test code 38 mmHg 35-45 = 384) PO2 ARTERIAL (BEAKER) (test code 357 mmHg 80-90 H = 385) O2 SATURATION ARTERIAL (BEAKER) 99.8 % 96.0-97.0 H (test code = 386) HCO3 ARTERIAL (BEAKER) (test code 24 mmol/L 21-29 = 388) BASE EXCESS ARTERIAL (BEAKER) -0.8 mmol/L -2.0-3.0 (test code = 387) PATIENT TEMPERATURE (BEAKER) 36.5 C (test code = 1818) FIO2 (BEAKER) (test code = 1819) 92.0 % SODIUM NA-STAT [id number] 10:44:00 Test Item Value Reference Range Interpretation Comments SODIUM (BEAKER) (test code = 381) 130 meq/L 135-148 L GLUCOSE-STAT [id number] 10:44:00 Test Item Value Reference Range Interpretation Comments GLUCOSE RANDOM (BEAKER) (test code 154 mg/dL 70-110 H = 652) HGB/HCT (H&H) - STAT [id number] 10:44:00 Test Item Value Reference Range Interpretation Comments HEMOGLOBIN (BEAKER) (test code = 9.1 g/dL 13.0-16.8 L 410) HEMATOCRIT (BEAKER) (test code = 27.0 % 40.0-50.0 L 411) CALCIUM, [id number] 10:44:00 Test Item Value Reference Range Interpretation Comments CALCIUM IONIZED (BEAKER) (test 1.11 mmol/L 1.12-1.27 L code = 698) PH, BLOOD (BEAKER) (test code = 7.40 1810) POTASSIUM-STAT [id number] 10:40:00 Test Item Value Reference Range Interpretation Comments POTASSIUM (BEAKER) (test code = 5.0 meq/L 3.6-5.5 379) BLOOD GAS, [id number] 09:57:00 Test Item Value Reference Range Interpretation Comments PH ARTERIAL (BEAKER) (test code = 7.43 7.35-7.45 383) PCO2 ARTERIAL (BEAKER) (test code 37 mmHg 35-45 = 384) PO2 ARTERIAL (BEAKER) (test code 284 mmHg 80-90 H = 385) O2 SATURATION ARTERIAL (BEAKER) 99.7 % 96.0-97.0 H (test code = 386) HCO3 ARTERIAL (BEAKER) (test code 25 mmol/L 21- = 388) BASE EXCESS ARTERIAL (BEAKER) -0.1 mmol/L -2.0-3.0 (test code = 387) PATIENT TEMPERATURE (BEAKER) 34.1 C (test code = 1818) FIO2 (BEAKER) (test code = 1819) 80.0 % GLUCOSE-STAT [id number] 09:57:00 Test Item Value Reference Range Interpretation Comments GLUCOSE RANDOM (BEAKER) (test code 168 mg/dL 70-110 H = 652) SODIUM NA-STAT [id number] 09:57:00 Test Item Value Reference Range Interpretation Comments SODIUM (BEAKER) (test code = 381) 131 meq/L 135-148 L POTASSIUM-STAT [id number] 09:57:00 Test Item Value Reference Range Interpretation Comments POTASSIUM (BEAKER) (test code = 5.9 meq/L 3.6-5.5 H 379) HGB/HCT (H&H) - STAT [id number] 09:57:00 Test Item Value Reference Range Interpretation Comments HEMOGLOBIN (BEAKER) (test code = 8.5 g/dL 13.0-16.8 L 410) HEMATOCRIT (BEAKER) (test code = 25.0 % 40.0-50.0 L 411) BLOOD GAS, [id number] 09:31:00 Test Item Value Reference Range Interpretation Comments PH ARTERIAL (BEAKER) (test code = 7.41 7.35-7.45 383) PCO2 ARTERIAL (BEAKER) (test code 37 mmHg 35-45 = 384) PO2 ARTERIAL (BEAKER) (test code 299 mmHg 80-90 H = 385) O2 SATURATION ARTERIAL (BEAKER) 99.7 % 96.0-97.0 H (test code = 386) HCO3 ARTERIAL (BEAKER) (test code 25 mmol/L -29 = 388) BASE EXCESS ARTERIAL (BEAKER) -1.8 mmol/L -2.0-3.0 (test code = 387) PATIENT TEMPERATURE (BEAKER) 30.0 C (test code = 1818) FIO2 (BEAKER) (test code = 1819) 65.0 % SODIUM NA-STAT [id number] 09:31:00 Test Item Value Reference Range Interpretation Comments SODIUM (BEAKER) (test code = 381) 131 meq/L 135-148 L GLUCOSE-STAT [id number] 09:31:00 Test Item Value Reference Range Interpretation Comments GLUCOSE RANDOM (BEAKER) (test code 175 mg/dL 70-110 H = 652) HGB/HCT (H&H) - STAT [id number] 09:31:00 Test Item Value Reference Range Interpretation Comments HEMOGLOBIN (BEAKER) (test code = 7.7 g/dL 13.0-16.8 L 410) HEMATOCRIT (BEAKER) (test code = 23.0 % 40.0-50.0 L 411) POTASSIUM-STAT [id number] 09:29:00 Test Item Value Reference Range Interpretation Comments POTASSIUM (BEAKER) (test code = 5.5 meq/L 3.6-5.5 379) POTASSIUM-STAT [id number] 09:07:00 Test Item Value Reference Range Interpretation Comments POTASSIUM (BEAKER) 6.9 meq/L 3.6-5.5 HH Sample NO T Hemolyzed. (test code = 379) BLOOD GAS, [id number] 09:05:00 Test Item Value Reference Range Interpretation Comments PH ARTERIAL (BEAKER) (test code = 7.38 7.35-7.45 383) PCO2 ARTERIAL (BEAKER) (test code 43 mmHg 35-45 = 384) PO2 ARTERIAL (BEAKER) (test code 323 mmHg 80-90 H = 385) O2 SATURATION ARTERIAL (BEAKER) 99.7 % 96.0-97.0 H (test code = 386) HCO3 ARTERIAL (BEAKER) (test code 26 mmol/L 21-29 = 388) BASE EXCESS ARTERIAL (BEAKER) -0.7 mmol/L -2.0-3.0 (test code = 387) PATIENT TEMPERATURE (BEAKER) 31.4 C (test code = 1818) FIO2 (BEAKER) (test code = 1819) 70.0 % GLUCOSE-STAT [id number] 09:05:00 Test Item Value Reference Range Interpretation Comments GLUCOSE RANDOM (BEAKER) (test code 216 mg/dL 70-110 H = 652) HGB/HCT (H&H) - STAT [id number] 09:05:00 Test Item Value Reference Range Interpretation Comments HEMOGLOBIN (BEAKER) (test code = 8.0 g/dL 13.0-16.8 L 410) HEMATOCRIT (BEAKER) (test code = 24.0 % 40.0-50.0 L 411) SODIUM NA-STAT [id number] 09:05:00 Test Item Value Reference Range Interpretation Comments SODIUM (BEAKER) (test code = 381) 123 meq/L 135-148 L GLUCOSE-STAT [id number] 08:03:00 Test Item Value Reference Range Interpretation Comments GLUCOSE RANDOM (BEAKER) (test code 107 mg/dL 70-110 = 652) POTASSIUM-STAT [id number] 08:03:00 Test Item Value Reference Range Interpretation Comments POTASSIUM (BEAKER) (test code = 4.2 meq/L 3.6-5.5 379) BLOOD GAS, [id number] 08:03:00 Test Item Value Reference Range Interpretation Comments PH ARTERIAL (BEAKER) (test code = 7.47 7.35-7.45 H 383) PCO2 ARTERIAL (BEAKER) (test code 33 mmHg 35-45 L = 384) PO2 ARTERIAL (BEAKER) (test code = 407 mmHg 80-90 H 385) O2 SATURATION ARTERIAL (BEAKER) 99.8 % 96.0-97.0 H (test code = 386) HCO3 ARTERIAL (BEAKER) (test code 24 mmol/L 21-29 = 388) BASE EXCESS ARTERIAL (BEAKER) 0.0 mmol/L -2.0-3.0 (test code = 387) PATIENT TEMPERATURE (BEAKER) (test 35.2 C code = 1818) FIO2 (BEAKER) (test code = 1819) 100.0 % SODIUM NA-STAT [id number] 08:03:00 Test Item Value Reference Range Interpretation Comments SODIUM (BEAKER) (test code = 381) 130 meq/L 135-148 L HGB/HCT (H&H) - STAT [id number] 08:03:00 Test Item Value Reference Range Interpretation Comments HEMOGLOBIN (BEAKER) (test code = 12.3 g/dL 13.0-16.8 L 410) HEMATOCRIT (BEAKER) (test code = 36.0 % 40.0-50.0 L 411) CALCIUM, [id number] 08:02:00 Test Item Value Reference Range Interpretation Comments CALCIUM IONIZED (BEAKER) (test 1.23 mmol/L 1.12-1.27 code = 698) PH, BLOOD (BEAKER) (test code = 7.45 1810) POCT-GLUCOSE [id number] 06:05:00 Test Item Value Reference Range Interpretation Comments POC-GLUCOSE METER 96 mg/dL 70-110 : TESTED A T [facility] (BEAKER) (test code = GERALD ARELLANO [place], [phone] [id number]: Reversing [employer] Roller/Techni criss ID = [id number] for JORD AN, LACRYSTAL RAD, CHEST, 2 [id number] 13:23:00In departmentReason for exam:->Aoritc valve replacement Pre op screenFINAL REPORT CLINICAL HISTORY: Aortic valve replacement Pre op screen TECHNIQUE: 2 views of the chest COMPARISON: None IMPRESSION: There are no focal infiltrates or effusions. The cardiomediastinal silhouette is within normal limits for size. The osseous structures appear intact. Signed: [facility] Verified Date/Time: 04/04/2019 13:23:46 Reading Location: [facility] Radiology Reading Room HEMOGLOBIN [id number] 13:07:00 Test Item Value Reference Range Interpretation Comments HEMOGLOBIN A1C (BEAKER) (test code = 4.7 % 4.3-6.1 368) [id number] 12:23:00 Test Item Value Reference Range Interpretation Comments MAGNESIUM (BEAKER) (test code = 2.0 mg/dL 1.6-2.6 627) COMPREHENSIVE METABOLIC [id number] 12:23:00 Test Item Value Reference Range Interpretation Comments TOTAL PROTEIN 7.4 gm/dL 6.0-8.3 (BEAKER) (test code = 770) ALBUMIN (BEAKER) 4.3 g/dL 3.5-5.0 (test code = 1145) ALKALINE PHOSPHATASE 73 U/L 40-150 (BEAKER) (test code = 346) BILIRUBIN TOTAL 0.8 mg/dL 0.2-1.2 (BEAKER) (test code = 377) SODIUM (BEAKER) (test 134 meq/L 136-145 L code = 381) POTASSIUM (BEAKER) 4.4 meq/L 3.5-5.1 (test code = 379) CHLORIDE (BEAKER) 101 meq/L 98-107 (test code = 382) CO2 (BEAKER) (test 27 meq/L 22-29 code = 355) BLOOD UREA NITROGEN 14 mg/dL 7-21 (BEAKER) (test code = 354) CREATININE (BEAKER) 0.97 mg/dL 0.57-1.25 (test code = 358) GLUCOSE RANDOM 85 mg/dL 70-105 (BEAKER) (test code = 652) CALCIUM (BEAKER) 9.6 mg/dL 8.4-10.2 (test code = 697) AST (SGOT) (BEAKER) 42 U/L 5-34 H (test code = 353) ALT (SGPT) (BEAKER) 30 U/L 6-55 (test code = 347) EGFR (BEAKER) (test 78 mL/min/1.73 ESTIMA CHANTELLE GFR IS code = 1092) sq m NOT ACCURATE CREATININE CLEARANCE IN PREDICTING GLOMERULAR FILTRATION RATE . ESTIMATED GFR I S NOT APPLICABLE FOR DIALYSIS PATIEN TS. LIPID [id number] 12:23:00 Test Item Value Reference Range Interpretation Comments TRIGLYCERIDES (BEAKER) (test code = 66 mg/dL 540) CHOLESTEROL (BEAKER) (test code = 160 mg/dL 631) HDL CHOLESTEROL (BEAKER) (test code 63 mg/dL = 976) LDL CHOLESTEROL CALCULATED (BEAKER) 84 mg/dL (test code = 633) Triglyceride Reference Range: Low Risk <150 Borderline 150-199 High Risk 200-499 Very High Risk >=500Cholesterol Reference Range: Low Risk <200 Borderline 200-239 High Risk >240HDL Cholesterol Reference Range: Low Risk >=60 High Risk <40LDL Cholesterol Reference Range: Optimal <100 Near Optimal 100-129 Borderline 130-159 High 160-189 Very High [id number] 12:02:00 Test Item Value Reference Range Interpretation Comments PARTIAL THROMBOPLASTIN TIME 34.5 seconds 22.5-36.0 (BEAKER) (test code = 760) PROTHROMBIN TIME/[id number] 12:01:00 Test Item Value Reference Range Interpretation Comments PROTIME (BEAKER) (test code = 13.9 seconds 11.9-14.2 759) INR (BEAKER) (test code = 370) 1.1 <=5.9 Effective 11/07/2018: PT Reference Range ChangeNew: 11.9-14.2 Previous: 11.7- 14.7RECOMMENDED COUMADIN/WARFARIN INR THERAPY RANGESSTANDARD DOSE: 2.0-3.0 Includes: PROPHYLAXIS for venous thrombosis, systemic embolization; TREATMENT for venous thrombosis and/or pulmonary embolus.HIGH RISK: Target INR is2.5-3.5 for patients wiht mechanical heart valves.CBC W/PLT COUNT & AUTO [id number] 11:52:00 Test Item Value Reference Range Interpretation Comments WHITE BLOOD CELL COUNT (BEAKER) 4.8 K/ L 3.5-10.5 (test code = 775) RED BLOOD CELL COUNT (BEAKER) 3.44 M/ L 4.63-6.08 L (test code = 761) HEMOGLOBIN (BEAKER) (test code = 12.0 GM/DL 13.7-17.5 L 410) HEMATOCRIT (BEAKER) (test code = 34.9 % 40.1-51.0 L 411) MEAN CORPUSCULAR VOLUME (BEAKER) 101.5 fL 79.0-92.2 H (test code = 753) MEAN CORPUSCULAR HEMOGLOBIN 34.9 pg 25.7-32.2 H (BEAKER) (test code = 751) MEAN CORPUSCULAR HEMOGLOBIN CONC 34.4 GM/DL 32.3-36.5 (BEAKER) (test code = 752) RED CELL DISTRIBUTION WIDTH 15.8 % 11.6-14.4 H (BEAKER) (test code = 412) PLATELET COUNT (BEAKER) (test 112 K/CU MM 150-450 L code = 756) MEAN PLATELET VOLUME (BEAKER) 8.8 fL 9.4-12.4 L (test code = 754) NUCLEATED RED BLOOD CELLS 0 /100 WBC 0-0 (BEAKER) (test code = 413) NEUTROPHILS RELATIVE PERCENT 56 % (BEAKER) (test code = 429) LYMPHOCYTES RELATIVE PERCENT 22 % (BEAKER) (test code = 430) MONOCYTES RELATIVE PERCENT 18 % (BEAKER) (test code = 431) EOSINOPHILS RELATIVE PERCENT 1 % (BEAKER) (test code = 432) BASOPHILS RELATIVE PERCENT 1 % (BEAKER) (test code = 437) NEUTROPHILS ABSOLUTE COUNT 2.68 K/ L 1.78-5.38 (BEAKER) (test code = 670) LYMPHOCYTES ABSOLUTE COUNT 1.05 K/ L 1.32-3.57 L (BEAKER) (test code = 414) MONOCYTES ABSOLUTE COUNT (BEAKER) 0.87 K/ L 0.30-0.82 H (test code = 415) EOSINOPHILS ABSOLUTE COUNT 0.06 K/ L 0.04-0.54 (BEAKER) (test code = 416) BASOPHILS ABSOLUTE COUNT (BEAKER) 0.04 K/ L 0.01-0.08 (test code = 417) IMMATURE GRANULOCYTES-RELATIVE 2 % 0-1 H PERCENT (BEAKER) (test code = 2801)
[2020-11-16 21:59] LABS: Urine Blood Negative (Negative); Urine Glucose Negative (Negative); Urine Protein 2+ (Negative); Urine pH 7.5 (5.0-7.0)
[2020-11-16] MEDS ORDERED: CEFTRIAXONE/SWI 1gm 1 GM/10 ML SYR ONE (22:40)
[2020-11-16] MEDS ORDERED: TAMSULOSIN 0.4 MG SR CAP ONE (22:51)
[2020-11-16] MEDS ORDERED: NA CHLORIDE 0.9% 1,000 ML ONE (22:51)
[2020-11-16 23:11] LABS: Absolute Lymphocytes (CBC) 0.7 K/uL (0.7-4.9); Basophils % 1.1 % (0-1.3); Hematocrit 38.7 % (39.6-49.0); Lymphocytes % 11.8 % (15.3-44.8); MPV 7.5 fL (7.6-11.3); RBC Red Blood Cell Count 3.54 M/uL (4.33-5.43)
[2020-11-16 23:12] LABS: Protime INR 1.04
[2020-11-16] MEDS ORDERED: LORazepam 2 MG/ML VIAL ONE (23:12)
[2020-11-16 23:36] LABS: ALT/SGPT 31 U/L (12-78); AST/SGOT 49 U/L (15-37); Albumin 4.1 g/dL (3.4-5.0); Alkaline Phosphatase 88 U/L (45-117); BUN Blood Urea Nitrogen 14 mg/dL (7-18); Bicarbonate 19 mmol/L (21-32); Bilirubin Direct 0.6 mg/dL (0-0.2); Bilirubin Total 1.5 mg/dL (0.2-1.0); Glucose Level 117 mg/dL (74-106); Magnesium 1.9 mg/dL (1.8-2.4); NT PRO-BNP 306 pg/mL (<125); Potassium 3.5 mmol/L (3.5-5.1); Protein, Total 7.8 g/dL (6.4-8.2); Sodium Level 142 mmol/L (136-145); Troponin (Emerg Dept Use Only) < 0.02 ng/mL (0.0-0.045)
[2020-11-17 00:14] LABS: Blood Morphology Comment NOTED (NOT SEEN); Macrocytosis 1+; Platelet Estimate ADEQ; White Blood Cell Scan OK (OK)
[2020-11-17] MEDS ORDERED: THIAMINE 200 MG/2 ML INJ ONE (00:17)
--- NOTE | 2020-11-17 00:32 | EDPHYS ---
Physician Documentation [facility] Name: Gavin Polo Jr Age: 65 yrs Sex: Male : 1955 Arrival Date: 11/16/2020 Time: 21:27 Bed 4 Private MD: ED Physician Britton Laurent HPI: 11/16 22:15 This 65 yrs old Male presents to ER via EMS with complaints of Low Back Pain, freedom Urinary Retention, Anxiety. 22:15 The patient presents with pain that is chronic. The symptoms are located in the low freedom back. Historical: - Allergies: 21:29 No Known Allergies; ss - PMHx: : Anxiety; Atrial valve stenosis; barrots; central tremor; GERD; Hypertension; ss - PSHx: : Knee surgery; Hernia repair; ss - Immunization history:: Adult Immunizations up to date. - Social history:: Smoking status: Patient denies any tobacco usage or history of. ROS: 22:16 Constitutional: Negative for fever, chills, and weight loss, Eyes: Negative for injury, freedom pain, redness, and discharge, ENT: Negative for injury, pain, and discharge, Neck: Negative for injury, pain, and swelling, Cardiovascular: Negative for chest pain, palpitations, and edema, Respiratory: Negative for shortness of breath, cough, wheezing, and pleuritic chest pain, Abdomen/GI: Negative for abdominal pain, nausea, vomiting, diarrhea, and constipation, Back: Negative for injury and pain, MS/Extremity: Negative for injury and deformity, Skin: Negative for injury, rash, and discoloration, Neuro: Negative for headache, weakness, numbness, tingling, and seizure, Psych: Negative for depression, anxiety, suicide ideation, homicidal ideation, and hallucinations, Allergy/Immunology: Negative for hives, rash, and allergies, Endocrine: Negative for neck swelling, polydipsia, polyuria, polyphagia, and marked weight changes, Hematologic/Lymphatic: Negative for swollen nodes, abnormal bleeding, and unusual bruising. 22:16 : Positive for difficulty urinating. Exam: 22:16 Constitutional: This is a well developed, well nourished patient who is awake, alert, freedom and in no acute distress. Head/Face: Normocephalic, atraumatic. Eyes: Pupils equal round and reactive to light, extra-ocular motions intact. Lids and lashes normal. Conjunctiva and sclera are non-icteric and not injected. Cornea within normal limits. Periorbital areas with no swelling, redness, or edema. ENT: Nares patent. No nasal discharge, no septal abnormalities noted. Tympanic membranes are normal and external auditory canals are clear. Oropharynx with no redness, swelling, or masses, exudates, or evidence of obstruction, uvula midline. Mucous membranes moist. Neck: Trachea midline, no thyromegaly or masses palpated, and no cervical lymphadenopathy. Supple, full range of motion without nuchal rigidity, or vertebral point tenderness. No Meningismus. Chest/axilla: Normal chest wall appearance and motion. Nontender with no deformity. No lesions are appreciated. Cardiovascular: Regular rate and rhythm with a normal S1 and S2. No gallops, murmurs, or rubs. Normal PMI, no JVD. No pulse deficits. Respiratory: Lungs have equal breath sounds bilaterally, clear to auscultation and percussion. No rales, rhonchi or wheezes noted. No increased work of breathing, no retractions or nasal flaring. Abdomen/GI: Soft, non-tender, with normal bowel sounds. No distension or tympany. No guarding or rebound. No evidence of tenderness throughout. Back: No spinal tenderness. No costovertebral tenderness. Full range of motion. Skin: Warm, dry with normal turgor. Normal color with no rashes, no lesions, and no evidence of cellulitis. MS/ Extremity: Pulses equal, no cyanosis. Neurovascular intact. Full, normal range of motion. Neuro: Awake and alert, GCS 15, oriented to person, place, time, and situation. Cranial nerves II-XII grossly intact. Motor strength 5/5 in all extremities. Sensory grossly intact. Cerebellar exam normal. Normal gait. Psych: Awake, alert, with orientation to person, place and time. Behavior, mood, and affect are within normal limits. 22:16 : CVA tenderness, is absent, Male external genitalia: normal, Bladder: distension, that is mild. 22:57 ECG was reviewed by the Attending Physician. [facility] Vital Signs: 21:27 BP 147 / 87; Pulse 91; Resp 24; Temp 98.0(O); Pulse Ox 99% on R/A; Weight 96.16 kg; ss Height 5 ft. 8 in. (172.72 cm); Pain 7/10; 22:30 BP 135 / 99; Pulse 90; Resp 22; Pulse Ox 99% ; rr5 23:46 BP 126 / 85; Pulse 82; Resp 16; Pulse Ox 98% ; rr5 11/17 01:03 BP 135 / 70; Pulse 75; Resp 16; Pulse Ox 99% ; rr5 11/16 21:27 Body Mass Index 32.23 (96.16 kg, 172.72 cm) ss MDM: 11/16 21:45 Patient medically screened. freedom 22:19 Differential diagnosis: strain, depression, nonspecific abdominal pain, UTI, urinary freedom retention, prostatitis, urethritis. Data reviewed: vital signs, nurses notes, lab test result(s), EKG, radiologic studies, CT scan, plain films. Data interpreted: monitor technician: rate is 91 beats/min, rhythm is regular, Pulse oximetry: on room air is 99 %. Test interpretation: by ED physician or midlevel provider: ECG, plain radiologic studies. Counseling: I had a detailed discussion with the patient and/or guardian regarding: the historical points, exam findings, and any diagnostic results supporting the discharge/admit diagnosis, lab results, radiology results, the need for outpatient follow up, for definitive care, 11/16 21:52 Order name: Urine Culture [facility] 11/16 21:59 Order name: Urine Dipstick-Ancillary; Complete Time: 22:15 EDMS 11/16 22:14 Order name: Basic Metabolic Panel [facility] 11/16 22:14 Order name: CBC with Diff [facility] 11/16 22:14 Order name: LFT's; Complete Time: 23:[address] [facility] 11/16 22:14 Order name: Magnesium; Complete Time: 23:[address] [facility] 11/16 22:14 Order name: NT PRO-BNP; Complete Time: 23:[address] [facility] 11/16 22:14 Order name: PT-INR; Complete Time: 23:[address] [facility] 11/16 22:14 Order name: Troponin (emerg Dept Use Only); Complete Time: 23:[address] [facility] 11/16 22:14 Order name: XRAY Chest (1 view) [facility] 11/16 22:14 Order name: Blood Culture Adult (2) [facility] 11/16 22:14 Order name: Basic Metabolic Panel; Complete Time: 23:51 EDMS 11/16 22:14 Order name: CBC with Automated Diff; Complete Time: 00:16 [facility] 11/16 23:18 Order name: CBC Smear Scan; Complete Time: 00:16 [facility] 11/16 21:52 Order name: Urine Dipstick-Ancillary (obtain specimen); Complete Time: 21:[address] [facility] 11/16 21:52 Order name: Bates; Complete Time: 21:[address] [facility] 11/16 21:52 Order name: Bates Leg Bag; Complete Time: 01:[address] [facility] 11/16 22:14 Order name: EKG; Complete Time: 22:[address] [facility] 11/16 22:14 Order name: Cardiac monitoring; Complete Time: 22:[address] [facility] 11/16 22:14 Order name: EKG - Nurse/Tech; Complete Time: 22:[address] [facility] 11/16 22:14 Order name: IV Saline Lock; Complete Time: 22:[address] [facility] 11/16 22:14 Order name: Labs collected and sent; Complete Time: 22:[address] [facility] 11/16 22:14 Order name: O2 Per Protocol; Complete Time: 22:[address] [facility] 11/16 22:14 Order name: O2 Sat Monitoring; Complete Time: 22:[address] [facility] 11/16 22:15 Order name: CT Stone Protocol [facility] EC:57 Rate is 89 beats/min. Rhythm is regular. QRS [place] is Normal. [place] interval is normal. QRS freedom interval is normal. QT interval is normal. No Q waves. T waves are Normal. No ST changes noted. Clinical impression: Normal ECG and No evidence of ischemia. Interpreted by me. Reviewed by me. Administered Medications: 22:58 Drug: NS 0.9% 1000 ml Route: IV; Rate: 1 bolus; Site: right forearm; rr5 23:40 Follow up: Response: No adverse reaction; IV Status: Completed infusion; IV Intake: rr5 1000ml 22:58 Drug: Flomax (tamsulosin) 0.4 mg Route: PO; rr5 11/17 00:00 Follow up: Response: No adverse reaction rr5 11/16 23:10 Drug: Ativan (LORazepam) 1 mg Route: IVP; Site: right forearm; rr5 08 00:10 Follow up: Response: No adverse reaction rr5 11/16 23:15 Drug: Rocephin (cefTRIAXone) 1 grams Route: IV; Rate: per protocol; Site: right forearm;rr5 11/17 00:15 Follow up: Response: No adverse reaction; IV Status: Completed infusion; IV Intake: 09pmft8 11/16 23:59 Drug: Thiamine 100 mg Route: IV; Rate: bolus; Site: right forearm; rr5 11/17 01:02 Follow up: Response: No adverse reaction; IV Status: Completed infusion rr5 Disposition: 11/17/20 00:31 Discharged to Home. Impression: Retention of urine - 500 cc, Anxiety disorder, unspecified, Alcohol abuse. - Condition is Stable. - Discharge Instructions: Alcohol Intoxication, Panic Attacks, Bates Catheter Care, Adult, Alcohol Intoxication, Ikjh-ai-Whuk, Alcohol Abuse and Nutrition, Acute Urinary Retention, Male, Kddr-po-Eyqj, Panic Attacks, Bohr-ac-Jcay, Bates Catheter Care, Adult, Jehp-kn-Pole. - Prescriptions for Xanax 0.5 mg Oral Tablet - take 1 tablet by ORAL route every 8 hours As needed; 20 tablet. Flomax 0.4 mg Oral Capsule, Sust. Release 24 hr - take 1 capsule by ORAL route once daily 1/2 hour following the same meal each day; 30 capsule. Cipro 500 mg Oral Tablet - take 1 tablet by ORAL route every 12 hours for 7 days; 14 tablet. Pepcid 20 mg Oral Tablet - take 1 tablet by ORAL route every 12 hours for 10 days; 20 tablet. - Medication Reconciliation Form, Thank You Letter, Antibiotic Education, Prescription Opioid Use form. - Follow up: Private Physician; When: 2 - 3 days; Reason: Recheck today's complaints, Continuance of care, Re-evaluation by your physician. Follow up: Sergey Reyna; When: 2 - 3 days; Reason: Recheck today's complaints, Re-evaluation by your physician. - Problem is new. - Symptoms have improved. Signatures: Dispatcher [employer] EDPA Britton Laurent MD MD cha Smirch, Shelby, RN RN Zacarias Bridges RN RN rr5 Corrections: (The following items were deleted from the chart) 00:35 00:31 11/17/2020 00:31 Discharged to Home. Impression: Retention of urine; Anxiety freedom disorder, unspecified; Alcohol abuse. Condition is Stable. Discharge Instructions: Panic Attacks, Bates Catheter Care, Adult, Acute Urinary Retention, Male, Bqeg-am-Cppx, Panic Attacks, Vxog-bn-Zrci, Bates Catheter Care, Adult, Caqf-uy-Ajhz. Prescriptions for Xanax 0.5 mg Oral Tablet - take 1 tablet by ORAL route every 8 hours As needed; 20 tablet, Flomax 0.4 mg Oral Capsule, Sust. Release 24 hr - take 1 capsule by ORAL route once daily 1/2 hour following the same meal each day; 30 capsule, Cipro 500 mg Oral Tablet - take 1 tablet by ORAL route every 12 hours for 7 days; 14 tablet. and Forms are Medication Reconciliation Form, Thank You Letter, Antibiotic Education, Prescription Opioid Use. Follow up: Private Physician; When: 2 - 3 days; Reason: Recheck today's complaints, Continuance of care, Re-evaluation by your physician. Follow up: Sergey Reyna; When: 2 - 3 days; Reason: Recheck today's complaints, Re-evaluation by your physician. Problem is new. Symptoms have improved. [facility] 01:09 00:35 11/17/2020 00:31 Discharged to Home. Impression: Retention of urine - 500 cc; rr5 Anxiety disorder, unspecified; Alcohol abuse. Condition is Stable. Discharge Instructions: Panic Attacks, Bates Catheter Care, Adult, Acute Urinary Retention, Male, Qpmg-ib-Gfhe, Panic Attacks, Ptxs-bh-Xprf, Bates Catheter Care, Adult, Jbzg-fo-Phng, Alcohol Intoxication, Alcohol Intoxication, Qxru-le-Bkpc, Alcohol Abuse and Nutrition. Prescriptions for Xanax 0.5 mg Oral Tablet - take 1 tablet by ORAL route every 8 hours As needed; 20 tablet, Flomax 0.4 mg Oral Capsule, Sust. Release 24 hr - take 1 capsule by ORAL route once daily 1/2 hour following the same meal each day; 30 capsule, Cipro 500 mg Oral Tablet - take 1 tablet by ORAL route every 12 hours for 7 days; 14 tablet, Pepcid 20 mg Oral Tablet - take 1 tablet by ORAL route every 12 hours for 10 days; 20 tablet. and Forms are Medication Reconciliation Form, Thank You Letter, Antibiotic Education, Prescription Opioid Use. Follow up: Private Physician; When: 2 - 3 days; Reason: Recheck today's complaints, Continuance of care, Re-evaluation by your physician. Follow up: Sergey Reyna; When: 2 - 3 days; Reason: Recheck today's complaints, Re-evaluation by your physician. Problem is new. Symptoms have improved. freedom
--- NOTE | 2020-11-17 00:32 | ER ---
Nurse's Notes [facility] Name: Gavin Polo Jr Age: 65 yrs Sex: Male : 1955 Arrival Date: 11/16/2020 Time: 21:27 Bed 4 Private MD: Diagnosis: Retention of urine-500 cc;Anxiety disorder, unspecified;Alcohol abuse Presentation: 11/16 21:27 Chief complaint: Patient states: unable to urinate and low back pain x 24 hours. PT ss reports that he feels like he cannot get a good breath and feels very anxious upon arrival. Coronavirus screen: Client denies travel out of the [place] in the last 14 days. Ebola Screen: Patient denies exposure to infectious person. Patient denies travel to an Ebola-affected area in the 21 days before illness onset. Initial Sepsis Screen: Does the patient meet any 2 criteria? RR > 20 per min. No. Patient's initial sepsis screen is negative. Does the patient have a suspected source of infection? No. Patient's initial sepsis screen is negative. Risk Assessment: Do you want to hurt yourself or someone else? Patient reports no desire to harm self or others. Onset of symptoms was November 15, 2020. 21:27 Method Of Arrival: EMS: [facility] 21:27 Acuity: NICK 3 ss Historical: - Allergies: 21:29 No Known Allergies; ss - PMHx: 21:29 Anxiety; Atrial valve stenosis; barrots; central tremor; GERD; Hypertension; ss - PSHx: 21:29 Knee surgery; Hernia repair; ss - Immunization history:: Adult Immunizations up to date. - Social history:: Smoking status: Patient denies any tobacco usage or history of. Screenin:30 Abuse screen: Denies threats or abuse. Denies injuries from another. Nutritional rr5 screening: No deficits noted. Tuberculosis screening: No symptoms or risk factors identified. Fall Risk IV access (20 points). Total Luna Fall Scale indicates No Risk (0-24 pts). Assessment: 21:30 General: Appears in no apparent distress. uncomfortable, Behavior is anxious. Pain: rr5 Complains of pain in pelvis. Neuro: Level of Consciousness is awake, alert, obeys commands, Oriented to person, place, time. Cardiovascular: Capillary refill < 3 seconds Patient's skin is warm and dry. Respiratory: Airway is patent Respiratory effort is even, unlabored, Respiratory pattern is regular, symmetrical. GI: No signs and/or symptoms were reported involving the gastrointestinal system. : Reports inability to void, since for 24 hours. EENT: No signs and/or symptoms were reported regarding the EENT system. Derm: Skin temperature is warm Bruising that is dark purple, on right arm and left arm. Musculoskeletal: Capillary refill < 3 seconds. 22:40 Reassessment: Patient appears in no apparent distress at this time. off and on shaking rr5 of the body witness, patient stated its happening on and off started today, ED provider aware. 23:05 Reassessment: shaking of body witnessed and patient stated " can I have something for rr5 the anxiety?" provider re examined with order made and carried out. 23:48 Reassessment: Patient appears in no apparent distress at this time. Patient is alert, rr5 oriented x 3, equal unlabored respirations, skin warm/dry/pink. 11/17 00:19 Reassessment: Patient appears in no apparent distress at this time. Patient is alert, rr5 oriented x 3, equal unlabored respirations, skin warm/dry/pink. 00:43 Reassessment: Patient appears in no apparent distress at this time. Patient is alert, rr5 oriented x 3, equal unlabored respirations, skin warm/dry/pink. spoke to rayna [phone] for the transport Patient states feeling better. Patient states symptoms have improved. Vital Signs: 11/16 21:27 BP 147 / 87; Pulse 91; Resp 24; Temp 98.0(O); Pulse Ox 99% on R/A; Weight 96.16 kg; ss Height 5 ft. 8 in. (172.72 cm); Pain 7/10; 22:30 BP 135 / 99; Pulse 90; Resp 22; Pulse Ox 99% ; rr5 23:46 BP 126 / 85; Pulse 82; Resp 16; Pulse Ox 98% ; rr5 11/17 01:03 BP 135 / 70; Pulse 75; Resp 16; Pulse Ox 99% ; rr5 11/16 21:27 Body Mass Index 32.23 (96.16 kg, 172.72 cm) ED Course: 11/16 21:27 Patient arrived in ED. ss 21:29 Triage completed. ss 21:29 Arm band placed on right wrist. ss 21:31 Zacarias Dobbins, MAURISIO is Primary Nurse. rr5 21:35 Patient has correct armband on for positive identification. Placed in gown. Bed in low rr5 position. Call light in reach. Side rails up X2. telemetry monitor on. Pulse ox on. NIBP on. 21:45 Britton Laurent MD is Attending Physician. freedom 21:50 Bates cath inserted, using sterile technique, 18 Fr., by va, balloon inflated, to ds4 gravity drainage, urine specimen collected. returned clear yellow urine. Patient tolerated well. 22:36 CT Stone Protocol In Process Unspecified. EDMS 22:37 XRAY Chest (1 view) In Process Unspecified. EDMS 22:53 Inserted saline lock: 20 gauge in right forearm, using aseptic technique. Blood rr5 collected. 11/17 00:30 Sergey Reyna MD is Referral Physician. freedom 01:03 No provider procedures requiring assistance completed. IV discontinued, intact, rr5 bleeding controlled, No redness/swelling at site. Pressure dressing applied. Administered Medications: 11/16 22:58 Drug: NS 0.9% 1000 ml Route: IV; Rate: 1 bolus; Site: right forearm; rr5 23:40 Follow up: Response: No adverse reaction; IV Status: Completed infusion; IV Intake: rr5 1000ml 22:58 Drug: Flomax (tamsulosin) 0.4 mg Route: PO; rr5 11/17 00:00 Follow up: Response: No adverse reaction rr5 11/16 23:10 Drug: Ativan (LORazepam) 1 mg Route: IVP; Site: right forearm; rr5 11/17 00:10 Follow up: Response: No adverse reaction rr5 11/16 23:15 Drug: Rocephin (cefTRIAXone) 1 grams Route: IV; Rate: per protocol; Site: right forearm;rr5 11/17 00:15 Follow up: Response: No adverse reaction; IV Status: Completed infusion; IV Intake: [id number] 11/16 23:59 Drug: Thiamine 100 mg Route: IV; Rate: bolus; Site: right forearm; rr5 11/17 01:02 Follow up: Response: No adverse reaction; IV Status: Completed infusion rr5 Intake: 11/16 23:40 IV: 1000ml; Total: 1000ml. rr5 11/17 00:15 IV: 10ml; Total: 1010ml. rr5 Output: 00:52 Urine: 850ml (Bates); Total: 850ml. rr5 Outcome: 00:31 Discharge ordered by . freedom 01:09 Discharged to home via wheelchair, with family. rr5 01:09 Condition: stable 01:09 Discharge instructions given to patient, Instructed on discharge instructions, follow up and referral plans. medication usage, Demonstrated understanding of instructions, follow-up care, medications, Prescriptions given X 4. 01:09 Patient left the ED. rr5 Signatures: Dispatcher [employer] EDMS Britton Laurent MD MD cha Smirch, Shelby, RN RN ss Swanson, Donovan 4 Zacarias Dobbins, MAURISIO RN rr5 Corrections: (The following items were deleted from the chart) 11/16 23:53 21:27 BP 147 / 87; Pulse 91bpm; Resp 24bpm; Pulse Ox 99% RA; Temp 98.0F Oral; 50.8 kg; ss Height 5 ft. 8 in.; BMI: 17.0; Pain 7/10; ss 23:53 21:27 BP 147 / 87; Pulse 91bpm; Resp 24bpm; Pulse Ox 99% RA; Temp 98.0F Oral; 50.8 kg; ss Height 5 ft. 8 in.; BMI: 17.0; Pain 7/10; ss
[2020-11-17 01:14] VITALS: TEMP 98
[2020-11-17 01:19] VITALS: BP 135/70; O2SAT 99
--- NOTE | 2020-11-17 07:12 | RAD REPORT ---
EXAM DESCRIPTION: RAD - Chest Single View - 11/16/2020 10:37 pm CLINICAL HISTORY: COUGH, dyspnea COMPARISON: December 2018 TECHNIQUE: AP portable chest image was obtained 11/16/2020 10:37 pm . FINDINGS: Lungs are clear. Interstitial pattern matches comparison. Sternotomy wires have been place d since prior imaging. Heart and vasculature are normal. No measurable pleural effusion and no pneumo thorax. No acute bony abnormality seen. No acute aortic findings suspected. IMPRESSION: No acute cardiopulmonary process. Heart, vasculature and lung markings are similar to comparison.
--- NOTE | 2020-11-17 12:07 | RAD REPORT ---
EXAM DESCRIPTION: CT - Stone Protocol - 11/17/2020 6:52 am COMPARISON: None. TECHNIQUE: CT ABDOMEN PELVIS WITHOUT IV CONTRAST on 11/16/2020 10:15 PM CDT This exam was performed according to our departmental dose-optimization program, which includes autom ated exposure control, adjustment of the mA and/or kV according to patient size and/or use of iterati ve reconstruction technique. FINDINGS: Lower lungs are clear. Abdomen: The liver is normal in appearance. There is no biliary dilatation. The pancreas and spleen a re normal in appearance. The adrenal glands and kidneys are unremarkable. Abdominal aorta is normal in course and caliber without aneurysm. There is no free air. There is no r etroperitoneal adenopathy. Pelvis: There is no bowel obstruction. Urinary bladder is decompressed with a Bates catheter. There i s no free fluid. There are moderate bilateral fat-containing inguinal hernias. Appendix is not clearl y seen. Skeleton: There are no acute osseous findings. No suspicious bony lesions. IMPRESSION: No definite acute process. Electronically signed by: Jerod Christian MD 11/16/2020 11:03 PM CDT Due to temporary technical issues with the PACS/Fluency reporting system, reports are being signed by the in house radiologists without review as a courtesy to insure prompt reporting. The interpreting radiologist is fully responsible for the content of the report.
--- NOTE | 2020-11-18 07:28 | EKG ---
Test Date: 2020-11-16 Test Time: 22:41:20 Director Women: RR MEASUREMENT RESULTS: Intervals: Rate: 89 GA: 152 QRSD: 88 QT: 374 QTc: 455 [place]: P: 60 GA: 152 QRS: 30 T: 39 INTERPRETIVE STATEMENTS: Normal sinus rhythm Normal ECG Compared to ECG 12/25/2018 14:31:18 Ventricular premature complex(es) no longer present Electronically Signed On 11-18-20 07:26:37 CDT by Hilario Salazar
== END 2020-11-17 01:09 | disposition home or self-care (01) ==
LOC: ER 21:24
DX: R33.9 Retention of urine, unspecified (principal); F41.9 Anxiety disorder, unspecified; F10.10 Alcohol abuse, uncomplicated; I10 Essential (primary) hypertension
CPT/HCPCS: 93005; 87040 ×2; 87088; 85025; 87086; 80048; 36415; 83735; 85610; 80076; 81003; 84484; 83880; 76377; 74176; 71045; J0696; J7030; 51702; 96365; 96375; 99285

== ENCOUNTER 2020-11-21 17:15 | Emergency (ER) | payer OTHER ==
--- NOTE | 2020-11-21 18:07 | ER ---
Nurse's Notes [facility] Name: Gavin Polo Jr Age: 65 yrs Sex: Male : 1955 Arrival Date: 11/21/2020 Time: 17:16 Bed 20 Private MD: Shaun Way E Diagnosis: Encounter for change of garcia catheter Presentation: 11/21 17:21 Coronavirus screen: Client denies travel out of the [place] in the last 14 days. At this ll1 time, the client does not indicate any symptoms associated with coronavirus-19. Ebola Screen: Patient denies travel to an Ebola-affected area in the 21 days before illness onset. Initial Sepsis Screen: Does the patient meet any 2 criteria? No. Patient's initial sepsis screen is negative. Does the patient have a suspected source of infection? Yes: Dysuria/Frequency/Urgency/UTI. Risk Assessment: Do you want to hurt yourself or someone else? Patient reports no desire to harm self or others. Onset of symptoms was November 20, 2020. 17:21 Method Of Arrival: Ambulatory ll1 17:21 Acuity: NICK 4 ll1 17:24 Chief complaint: Patient states: Reports urine leaking from around catheter entrance ll1 site. Happened once last night, then again today. No fever or pain. Triage Assessment: 17:25 Pain: Denies pain. rb3 Historical: - Allergies: 17:19 No Known Allergies; ll1 - PMHx: 17:19 Anxiety; Atrial valve stenosis; barrots; central tremor; GERD; Hypertension; ll1 - PSHx: 17:19 Knee surgery; Hernia repair; ll1 - Immunization history:: Client reports receiving the 1st dose of the Covid vaccine, Flu vaccine is not up to date. - Social history:: Smoking status: Patient denies any tobacco usage or history of. Screenin:25 Abuse screen: Denies threats or abuse. Nutritional screening: No deficits noted. rb3 Tuberculosis screening: No symptoms or risk factors identified. Fall Risk None identified. Assessment: 17:25 General: Appears in no apparent distress. comfortable, Behavior is calm, cooperative. rb3 Neuro: Level of Consciousness is awake, alert, obeys commands, Oriented to person, place, time, situation. Cardiovascular: Patient's skin is warm and dry. Respiratory: Airway is patent Respiratory effort is even, unlabored, Respiratory pattern is regular, symmetrical. GI: No signs and/or symptoms were reported involving the gastrointestinal system. : Reports Catheter is leaking at the insertion site. 19:00 Reassessment: Patient wanting to talk to PCP, [employer] notified. fu 19:30 Reassessment: garcia cath collection bag changed to leg bag. fu Vital Signs: 17:21 BP 128 / 94; Pulse 86; Resp 17; Temp 97.0; Pulse Ox 99% ; Weight 96.16 kg; Height 5 ft. ll1 8 in. (172.72 cm); Pain 0/10; 17:21 Body Mass Index 32.23 (96.16 kg, 172.72 cm) ll1 ED Course: 17:16 Patient arrived in ED. am2 17:[address] MD is Private Physician. am2 17:17 Annabel Montes De Oca FNP-C is [facility]. kb 17:17 Alvin Berumen MD is Attending Physician. kb 17:18 Arm band placed on Patient placed in an exam room, on a stretcher. ll1 17:22 Triage completed. ll1 17:25 Patient has correct armband on for positive identification. Bed in low position. Call rb3 light in reach. Side rails up X 1. Pulse ox on. NIBP on. 17:40 Jaye Velasco, MAURISIO is Primary Nurse. rb3 18:56 Garcia cath inserted, using sterile technique, 16 Fr., by mt, balloon inflated, to dh4 gravity drainage. 19:15 Primary Nurse role handed off by Jaye Velasco, MAURISIO mw2 19:16 Zay Boucher, MAURISIO is Primary Nurse. fu 19:40 No provider procedures requiring assistance completed. Patient did not have IV access fu during this emergency room visit. Administered Medications: No medications were administered Output: 17:48 Urine: 300ml (Garcia); Total: 300ml. rb3 Outcome: 18:07 Discharge ordered by . kb 19:40 Discharged to home ambulatory. fu 19:40 Condition: good 19:40 Discharge instructions given to patient, Instructed on discharge instructions, follow up and referral plans. Demonstrated understanding of instructions, follow-up care. 19:45 Patient left the ED. fu Signatures: Annabel Montes De Oca FNP-C FNP-Daylin Benton am2 Zay Boucher, RN RN [facility], Samuel 2 Felipe Cline 4 Mabel Castellanos RN RN ll1 Jaye Velasco RN RN rb3
--- NOTE | 2020-11-21 18:07 | EDPHYS ---
Physician Documentation [facility] Name: Gavin Polo Jr Age: 65 yrs Sex: Male : 1955 Arrival Date: 11/21/2020 Time: 17:16 Bed 20 Private MD: Shaun Way E ED Physician Alvin Berumen HPI: 11/21 17:45 This 65 yrs old Male presents to ER via Ambulatory with complaints of Problem kb With Urinary Catheter. 17:45 The patient presents with a Garcia catheter problem, is leaking urine. Onset: The kb symptoms/episode began/occurred today. Modifying factors: The symptoms are alleviated by nothing, the symptoms are aggravated by nothing. Associated signs and symptoms: The patient has no apparent associated signs or symptoms. Severity of symptoms: At their worst the symptoms were mild, in the emergency department the symptoms are unchanged. The patient has not experienced similar symptoms in the past. The patient has been recently seen by a physician: a urologist, yesterday, The patient has been recently seen at the [facility] Emergency Department, last week. Pt reports his garcia catheter started leaking today. Denies any other symptoms or complaints. Historical: - Allergies: 17:19 No Known Allergies; ll1 - PMHx: 17:19 Anxiety; Atrial valve stenosis; barrots; central tremor; GERD; Hypertension; ll1 - PSHx: 17:19 Knee surgery; Hernia repair; ll1 - Immunization history:: Client reports receiving the 1st dose of the Covid vaccine, Flu vaccine is not up to date. - Social history:: Smoking status: Patient denies any tobacco usage or history of. ROS: 17:44 Constitutional: Negative for fever, chills, and weight loss. kb 17:44 : Positive for leaking garcia catheter. 17:44 All other systems are negative. Exam: 17:45 Constitutional: This is a well developed, well nourished patient who is awake, alert, kb and in no acute distress. Head/Face: Normocephalic, atraumatic. ENT: Moist Mucous membranes Respiratory: Respirations even and unlabored. No increased work of breathing, no retractions or nasal flaring. Skin: Warm, dry with normal turgor. Normal color. MS/ Extremity: Pulses equal, no cyanosis. Neurovascular intact. Full, normal range of motion. Neuro: Awake and alert, GCS 15, oriented to person, place, time, and situation. Moves all extremities. Normal gait. Psych: Awake, alert, with orientation to person, place and time. Behavior, mood, and affect are within normal limits. Vital Signs: 17:21 BP 128 / 94; Pulse 86; Resp 17; Temp 97.0; Pulse Ox 99% ; Weight 96.16 kg; Height 5 ft. ll1 8 in. (172.72 cm); Pain 0/10; 17:21 Body Mass Index 32.23 (96.16 kg, 172.72 cm) ll1 MDM: 17:22 Patient medically screened. kb 17:44 Data reviewed: vital signs, nurses notes. Data interpreted: Pulse oximetry: on room air kb is 99 %. Interpretation: normal. 18:05 Counseling: I had a detailed discussion with the patient and/or guardian regarding: the kb historical points, exam findings, and any diagnostic results supporting the discharge/admit diagnosis, the need for outpatient follow up, a urologist, to return to the emergency department if symptoms worsen or persist or if there are any questions or concerns that arise at home. ED course: Has follow up with urology on . 11/21 17:31 Order name: Misc. Order: remove garcia; Complete Time: 17:48 kb 11/21 18:06 Order name: Garcia; Complete Time: 19:05 kb Administered Medications: No medications were administered Disposition: 11/22 08:06 Co-signature as Attending Physician, Alvin Berumen MD. rn Disposition: 11/21/20 18:07 Discharged to Home. Impression: Encounter for change of garcia catheter. - Condition is Stable. - Discharge Instructions: Garcia Catheter Care, Adult, [id number]. - Medication Reconciliation Form, Thank You Letter, Antibiotic Education, Prescription Opioid Use form. - Follow up: Emergency Department; When: As needed; Reason: Worsening of condition. Follow up: Private Physician; When: 2 - 3 days; Reason: Recheck today's complaints, Continuance of care, Re-evaluation by your physician. Signatures: Annabel Montes De Oca, SHARE HOLDER-C SHARE HOLDER-Ckb Berumen, Alvin, MD MD rn Umadhay, Zay, RN RN fu Emanuel, Lynsay, RN RN ll1 Corrections: (The following items were deleted from the chart) 11/21 19:45 18:07 11/21/2020 18:07 Discharged to Home. Impression: Encounter for change of garcia fu catheter. Condition is Stable. Forms are Medication Reconciliation Form, Thank You Letter, Antibiotic Education, Prescription Opioid Use. Follow up: Emergency Department; When: As needed; Reason: Worsening of condition. Follow up: Private Physician; When: 2 - 3 days; Reason: Recheck today's complaints, Continuance of care, Re-evaluation by your physician. kb
[2020-11-21 19:51] VITALS: BP 128/94; TEMP 97; O2SAT 99
== END 2020-11-21 19:45 | disposition home or self-care (01) ==
LOC: ER 17:15
DX: T83.038A Leakage of other urinary catheter, initial encounter (principal); I10 Essential (primary) hypertension
CPT/HCPCS: 51702; 99284

== ENCOUNTER 2020-11-21 20:54 | Emergency (ER) | payer OTHER ==
[2020-11-21 23:41] LABS: Urine Blood 2+ (Negative); Urine Glucose Negative (Negative); Urine Protein Negative (Negative); Urine Specific Gravity 1.025 (1.005-1.030); Urine pH 7.5 (5.0-7.0)
--- NOTE | 2020-11-22 00:21 | EDPHYS ---
Physician Documentation [facility] Name: Gavin Polo Jr Age: 65 yrs Sex: Male : 1955 Arrival Date: 11/21/2020 Time: 20:55 Bed 13 Private MD: ED Physician Wily Santos HPI: 11/22 00:16 This 65 yrs old Male presents to ER via Ambulatory with complaints of Problem mh7 With Urinary Catheter. 00:16 The patient presents with a Bates catheter problem, is not draining. Onset: The mh7 symptoms/episode began/occurred today. Modifying factors: The symptoms are alleviated by nothing, the symptoms are aggravated by nothing. Associated signs and symptoms: Pertinent negatives: abdominal pain, constipation, diarrhea, dysuria, fever, hematuria, nausea, vomiting. Severity of symptoms: At their worst the symptoms were moderate, in the emergency department the symptoms are unchanged. Historical: - Allergies: 11/21 21:24 No Known Allergies; ea - PMHx: 21:24 Atrial valve stenosis; Anxiety; barrots; central tremor; GERD; Hypertension; ea - PSHx: 21:24 Hernia repair; ea - Immunization history:: Adult Immunizations unknown. - Social history:: Smoking status: unknown. ROS: 11/22 00:16 Constitutional: Negative for fever, chills, and weight loss, Eyes: Negative for injury, mh7 pain, redness, and discharge, ENT: Negative for injury, pain, and discharge, Neck: Negative for injury, pain, and swelling, Cardiovascular: Negative for chest pain, palpitations, and edema, Respiratory: Negative for shortness of breath, cough, wheezing, and pleuritic chest pain, Abdomen/GI: Negative for abdominal pain, nausea, vomiting, diarrhea, and constipation, Back: Negative for injury and pain, MS/Extremity: Negative for injury and deformity, Skin: Negative for injury, rash, and discoloration, Neuro: Negative for headache, weakness, numbness, tingling, and seizure, Psych: Negative for depression, anxiety, suicide ideation, homicidal ideation, and hallucinations, Allergy/Immunology: Negative for hives, rash, and allergies, Endocrine: Negative for neck swelling, polydipsia, polyuria, polyphagia, and marked weight changes, Hematologic/Lymphatic: Negative for swollen nodes, abnormal bleeding, and unusual bruising. Exam: 00:16 Constitutional: This is a well developed, well nourished patient who is awake, alert, mh7 and in no acute distress. Head/Face: Normocephalic, atraumatic. Eyes: Pupils equal round and reactive to light, extra-ocular motions intact. Lids and lashes normal. Conjunctiva and sclera are non-icteric and not injected. Cornea within normal limits. Periorbital areas with no swelling, redness, or edema. Chest/axilla: Normal chest wall appearance and motion. Nontender with no deformity. No lesions are appreciated. Cardiovascular: Regular rate and rhythm with a normal S1 and S2. No gallops, murmurs, or rubs. Normal PMI, no JVD. No pulse deficits. Respiratory: Lungs have equal breath sounds bilaterally, clear to auscultation and percussion. No rales, rhonchi or wheezes noted. No increased work of breathing, no retractions or nasal flaring. Abdomen/GI: Soft, non-tender, with normal bowel sounds. No distension or tympany. No guarding or rebound. No evidence of tenderness throughout. Back: No spinal tenderness. No costovertebral tenderness. Full range of motion. Male : Normal genitalia with no discharge or lesions. Skin: Warm, dry with normal turgor. Normal color with no rashes, no lesions, and no evidence of cellulitis. MS/ Extremity: Pulses equal, no cyanosis. Neurovascular intact. Full, normal range of motion. Neuro: Awake and alert, GCS 15, oriented to person, place, time, and situation. Cranial nerves II-XII grossly intact. Motor strength 5/5 in all extremities. Sensory grossly intact. Cerebellar exam normal. Normal gait. Psych: Awake, alert, with orientation to person, place and time. Behavior, mood, and affect are within normal limits. Vital Signs: 11/21 21:21 BP 160 / 78; Pulse 98; Resp 20; Temp 97.8; Pulse Ox 99% ; Weight 96.16 kg; Height 5 ft. ea 8 in. (172.72 cm); 22:19 BP 140 / 73; Pulse 84; Resp 16; Pulse Ox 97% on R/A; zb 21:21 Body Mass Index 32.23 (96.16 kg, 172.72 cm) ea MDM: 11/22 00:16 Differential diagnosis: UTI, urinary retention, Bates catheter problem. Data reviewed: [facility] vital signs, nurses notes, lab test result(s), urinalysis. Counseling: I had a detailed discussion with the patient and/or guardian regarding: the historical points, exam findings, and any diagnostic results supporting the discharge/admit diagnosis, lab results, the need for outpatient follow up, to return to the emergency department if symptoms worsen or persist or if there are any questions or concerns that arise at home. Response to treatment: the patient's symptoms have resolved after treatment, the patient's blood pressure is in an acceptable range, mental status has returned to baseline, the patient no longer shows bradycardia, the patient is not short of breath, the patient is not tachycardic, the patient's pain is gone, the patient's temperature has normalized. 00:20 Patient medically screened. [facility] 11/21 23:40 Order name: Urine Dipstick-Ancillary; Complete Time: 00:07 [facility] 11/21 22:01 Order name: Bates; Complete Time: 22:18 [facility] 11/21 23:15 Order name: Urine Dipstick-Ancillary (obtain specimen); Complete Time: 23:35 [facility] 11/22 00:09 Order name: Leg Bag; Complete Time: 00:33 [facility] Administered Medications: 00:33 Drug: KeFLEX (cephalexin) 500 mg Route: PO; ea 00:37 Follow up: Response: No adverse reaction ea Disposition: 11/22/20 00:20 Discharged to Home. Impression: Bates Catheter Malfunction, Urinary tract infection, site not specified. - Condition is Stable. - Discharge Instructions: Urinary Tract Infection, Adult, [id number], Bates Catheter Care, Adult, [id number]. - Prescriptions for Keflex 500 mg Oral Capsule - take 1 capsule by ORAL route every 12 hours for 7 days; 14 capsule. - Medication Reconciliation Form, Thank You Letter, Antibiotic Education, Prescription Opioid Use form. - Follow up: Private Physician; When: 1 - 2 days; Reason: Worsening of condition, Recheck today's complaints, Continuance of care, Re-evaluation by your physician. Follow up: Sergey Reyna MD; When: 1 - 2 days; Reason: Worsening of condition, Recheck today's complaints. - Problem is an ongoing problem. - Symptoms have improved. Signatures: Dispatcher [employer] Snow Muñoz RN Wily Yepez ea, MD MD mh7 Sierra Mcrae RN RN zb Corrections: (The following items were deleted from the chart) 00:36 00:20 11/22/2020 00:20 Discharged to Home. Impression: Bates Catheter Malfunction; ea Urinary tract infection, site not specified. Condition is Stable. Forms are Medication Reconciliation Form, Thank You Letter, Antibiotic Education, Prescription Opioid Use. Follow up: Private Physician; When: 1 - 2 days; Reason: Worsening of condition, Recheck today's complaints, Continuance of care, Re-evaluation by your physician. Follow up: Sergey Reyna; When: 1 - 2 days; Reason: Worsening of condition, Recheck today's complaints. Problem is an ongoing problem. Symptoms have improved. mh7
--- NOTE | 2020-11-22 00:21 | ER ---
Nurse's Notes [facility] Name: Gavin Polo Jr Age: 65 yrs Sex: Male : 1955 Arrival Date: 11/21/2020 Time: 20:55 Bed 13 Private MD: Diagnosis: Garcia Catheter Malfunction;Urinary tract infection, site not specified Presentation: 11/21 21:21 Chief complaint: Patient states: Reports his garcia is clogged and is not having any ea drainage, reports he was here in the AM and got a garcia placed. pt reported his garcia has been clogged for about two hours. Coronavirus screen: At this time, the client does not indicate any symptoms associated with coronavirus-19. Ebola Screen: No symptoms or risks identified at this time. Initial Sepsis Screen: Does the patient meet any 2 criteria? No. Patient's initial sepsis screen is negative. Does the patient have a suspected source of infection? No. Patient's initial sepsis screen is negative. Risk Assessment: Do you want to hurt yourself or someone else? Patient reports no desire to harm self or others. Onset of symptoms was November 21, 2020. 21:21 Method Of Arrival: Ambulatory ea 21:21 Acuity: NICK 3 ea Historical: - Allergies: 21:24 No Known Allergies; ea - PMHx: 21:24 Atrial valve stenosis; Anxiety; barrots; central tremor; GERD; Hypertension; ea - PSHx: 21:24 Hernia repair; ea - Immunization history:: Adult Immunizations unknown. - Social history:: Smoking status: unknown. Screenin:23 Abuse screen: Denies threats or abuse. Nutritional screening: No deficits noted. ea Tuberculosis screening: No symptoms or risk factors identified. Fall Risk None identified. Assessment: 22:19 General: Appears in no apparent distress. uncomfortable, Behavior is calm, cooperative, zb appropriate for age. Neuro: Level of Consciousness is awake, alert, obeys commands, Oriented to person, place, time, situation. Cardiovascular: Patient's skin is warm and dry. Respiratory: Airway is patent Respiratory effort is even, unlabored, Respiratory pattern is regular, symmetrical. : Garcia in place Reports pain in suprapubic area. Derm: Skin is intact. Musculoskeletal: Circulation, motion, and sensation intact. Range of motion: intact in all extremities. 11/22 00:35 Reassessment: Patient and/or family updated on plan of care and expected duration. Pain ea level reassessed. Patient is alert, oriented x 3, equal unlabored respirations, skin warm/dry/pink. Discharge instruction given to patient verbalized the understanding of instruction. Pt left ED ambulatory tolerating well. Vital Signs: 11/21 21:21 BP 160 / 78; Pulse 98; Resp 20; Temp 97.8; Pulse Ox 99% ; Weight 96.16 kg; Height 5 ft. ea 8 in. (172.72 cm); 22:19 BP 140 / 73; Pulse 84; Resp 16; Pulse Ox 97% on R/A; zb 21:21 Body Mass Index 32.23 (96.16 kg, 172.72 cm) ea ED Course: 20:55 Patient arrived in ED. bp1 21:21 Garcia cath inserted, using sterile technique, 18 Fr., by ga, balloon inflated, to ea gravity drainage. 21:23 Triage completed. ea 21:24 Arm band placed on right wrist. Patient placed in an exam room, on a stretcher, on ea pulse oximetry. 21:24 Patient has correct armband on for positive identification. Bed in low position. Call ea light in reach. Side rails up X2. 21:53 Sierra Mcrae RN is Primary Nurse. zb 22:00 Wily Santos MD is Attending Physician. [facility] 11/22 00:19 Sergey Reyna MD is Referral Physician. [facility] 00:36 No provider procedures requiring assistance completed. Patient did not have IV access ea during this emergency room visit. Administered Medications: 00:33 Drug: KeFLEX (cephalexin) 500 mg Route: PO; ea 00:37 Follow up: Response: No adverse reaction ea Intake: 11/21 21:00 IV: 50ml; Total: 50ml. zb Outcome: 11/22 00:20 Discharge ordered by . [facility] 00:36 Discharged to home ambulatory, with family. ea 00:36 Condition: stable 00:36 Discharge instructions given to patient, Instructed on discharge instructions, follow up and referral plans. medication usage, Demonstrated understanding of instructions, follow-up care, medications, Prescriptions given X 1. 00:36 Patient left the ED. ea Signatures: Snow Rick RN RN Keke Kaiser Maurice, MD MD 7 Sierra Mcrae, MAURISIO FORDE zb
[2020-11-22] MEDS ORDERED: CEPHALEXIN 250 MG CAP ONE (00:38)
[2020-11-22 01:10] VITALS: BP 140/73; O2SAT 97
[2020-11-22 01:14] VITALS: TEMP 97.8
== END 2020-11-22 00:36 | disposition home or self-care (01) ==
LOC: ER 20:54
DX: N39.0 Urinary tract infection, site not specified (principal); I10 Essential (primary) hypertension
CPT/HCPCS: 51702; 81003; 99284

== ENCOUNTER 2021-01-01 10:25 | Emergency (ER) | payer OTHER ==
--- OUTSIDE RECORDS SUMMARY | 2021-01-01 10:30 | XMS REPORT | Continuity of Care Document ---
:[address] [facility] t Address [address] [place] [address] Care Team Providers Name Role Phone Felipe Jeramymoises Primary Care Physician Brandon KELLY, S Attending [...] Disease Active 2018-[address] [facility] [address] Bioprosthe Bioprosthe 0-29 kes - tic AVR by tic AVR by 00:00: Me amish Kuo Dr. 00 Kimberly Danny Delgado 04/09 04/09 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 [facility] Postoperat Postoperat Disease Active [facility] jef jef [facility] - hypovolemi hypovolemi Me amish hair shock, c shock, Center initial initial encounter encounter Acute Acute Disease Active [facility] respirator respirator kes - y y Medical insufficie insufficie Ce nter ncy ncy Hypertensi Hypertensi Disease Active [facility] Center Allergies, Adverse Reactions, Alerts Allergy Allergy Status Severity Reaction(s) Onset Inactive Treating Comm ents Source Name Type Date Date Clinician Pollen Propensi Active 2018-[address] Extracts ty to 0-24 nose, [facility] - adverse 00:00: sneezing Medical reaction 00 Center s Family History Family Member Diagnosis Comments Start Date Stop Date Source Natural father Heart attack [facility] Natural mother Cancer [facility] Social History Social Habit Start Date Stop Date Quantity Comments Source History SDMA [facility] - Alcohol Std Drinks Medica Center History [facility] - Alcohol Binge Medical Laurie ter Sex Assigned At [facility] Tobacco use and 2019-04-24 2019-04-[address] [facility] St Rosie kes - exposure 00:00:00 00:00:00 [facility] Center Alcohol intake 2019-04-24 2019-04-24 Current drinker JULIA Patel t [facility] - 00:00:00 00:00:00 of alcohol [facility] Center (finding) Alcohol Comment 2019-04-10 2019-04-[address] [facility] - 00:00:00 00:00:00 Medical Center History SDOH 2019-04-04 2019-04-[address] [facility] - Alcohol Frequency 00:00:00 00:00:00 [facility] Center Smoking Status Start Date Stop Date Source Never smoker [facility] Medications Ordered Filled Start Stop Current Ordering Indication Dosage Frequency Signature Comments Components Source Medication Medication Date Date Medication? Clinician (SIG) Name Name loratadine 2018-06 Yes 10mg Take [address] (CLARITIN) 1-11 by mouth [facility] - 10 mg 11:26: as needed Medical tablet 49 for Center Allergies. fluticasone 2018-06 Yes 1{spray QD [address] [address] propionate -11 } Nasal [facility] - (FLONASE) 11:26: route Medical 50 49 daily. Center mcg/actuati on nasal spray aspirin 81 2018-06 2020- No 81mg QD Take [address] MG EC 06-16 tablet (81 [facility] - tablet 00:00: 23:59 mg total) Medic al 00 :00 by mouth Center daily. colchicine 2018-06 2020- No .6mg QD Take [address] (COLCRYS) 06-16- tablet [facility] - 0.6 mg 00:00: 23:59 (0.6 mg Medical tablet 00 :00 total) by Center mouth daily. l-methylfol 2018-06 Yes 1{tbl} QD Take [address] ate-b2-b6-b -04 tablet by Sanjeev es - 12 14:14: mouth Medical (CEREFOLIN) 28 daily. Kimberly 6-5-50-1 mg Tab atorvastati 2018-06- No 20mg QD Take [address] n (LIPITOR) 06-15 11-03 tablet (20 L ukes - 20 MG 00:00: 23:59 mg total) Medica l tablet 00 :00 by mouth Center nightly. metoprolol 2018-06- No 12.5mg Q.5D Take 0.[address] (LOPRESSOR) 06-15- tablets Luke s - 25 MG 00:00: [...] 40 MG 00:00: daily. Medical capsule 00 Kimberly traZODone Yes 50mg QD Take [address] (DESYREL) 9-23 by mouth [facility] - 50 MG 00:00: nightly. Medical tablet 00 Center buPROPion Yes 300mg QD Take 300 [facility] [...] s - Test 00:00:00 (procedure) [code = [facility] [id number]] Future Scheduled 2020-02-[address] [facility] - Test 00:00:00 (#1) [code = [facility] Center INFLUENZA VACCINE (#1)] Future Scheduled [address] [facility] - Test 00:00:00 malignant neoplasm Medical C enter of colon (procedure) [code = 646233121] Encounters Start End Encounter Admission Attending Care Care Encounter Source Date/Time Date/Time Type Type Clinicians Facility Department ID 2020-11-26 2020-11-26 Outpatient [facility] [id number] [facility] 2020-11-20 2020-11-20 Outpatient [facility] [id number] [facility] 2020-05-21 2020-05-22 [facility] 1.2.840 .114 [id number] 19:04:00 18:10:00 ZulemaTasneem jackson [id number] [place] [id number] Valentines [id number] 2019-12-01 2019-12-01 [facility] [id number] 00:00:00 00:00:00 Kit Brice Slade [id number] [place] [id number] Professio [phone] [address] 2019-11-08 2019-11-08 [facility] [id number] 00:00:00 00:00:00 Kit Slade [id number] [place] [id number] Professio [phone] [address] 2019-10-17 2019-10-17 [facility] [id number] 00:00:00 00:00:00 Kit Slade [id number] [place] [id number] Professio [id number] [address] 2019-09-16 2019-09-16 [facility] [id number] 00:00:00 00:00:00 Kit Slade [id number] [place] [id number] Professio [phone] [address] 2019-07-18 2019-07-18 [facility] [id number] 00:00:00 00:00:00 Kit Slade [id number] [place] [id number] Professio [id number] [address] 2019-07-17 2019-07-17 [facility]phone [facility] [id number] 00:00:00 00:00:00 Kit Slade [id number] [place] [id number] Professio [id number] [address] 2018-10-30 2018-10-30 Orders Doctor CHYNA [id number] 00:00:00 00:00:00 Only Unassigned, JANNET [id number] [place] [facility] 4.2.7.2.686 [id number] [id number] Results Test Description Test Time Test Comments Results Result [facility] e Comments TISSUE EXAM 2019-04-15 Surgical Pathology 18:37:00 Report Case: [id number] Authorizing Provider: Lencho Delgado, Collected: 04/09/2019 Slime KELLY Ordering Location: [facility] Received: 04/09/2019 1223 PERIOPERATIVE SERVICES Pathologist: Jose Alfredo Dozier MD Specimen: Aortic Valve, AORTIC VALVE LEAFLET HEART, AORTIC VALVE, VALVULECTOMY:LEAFLETS WITH NODULAR CALCIFIC ATHEROSCLEROTIC THICKENING Signing Pathologist Direct Phone Line: [phone] ally signed by Jose Alfredo Dozier MD on 04/15/2019 at 6:37 [id number]; [id number] aortic valve stenosisAortic valve leafletReceived fresh with patient's demographic information and surgical accession number are fragments of calcified valvular leaflet, 3.5 x 2 x up to 1 cm in greatest dimension. Personal Computer Specialist section submitted in A1 for decalcification. HL/plPerformed [...] = 413) 0 /100 WBC 0 -0 [id number] 04:42:00 Test Item Value Reference Range Interpretation Comments MAGNESIUM (BEAKER) (test code = 1.8 mg/dL 1.6-2.6 627) BASIC METABOLIC [id number] 04:42:00 Test Item Value Reference Range Interpretation [...] PATIEN TS. CBC W/PLT COUNT & AUTO [id number] 04:28:00 Test Item Value Reference Range Interpretation [...] = 2801) CBC W/PLT COUNT & AUTO [id number] 11:55:00 Test Item Value Reference Range Interpretation [...] H PERCENT (BEAKER) (test code = 2801) [id number] 08:43:00 Test Item Value Reference Range Interpretation Comments MAGNESIUM (BEAKER) 1.9 mg/dL 1.6-2.6 Specimen slightly (test code = 627) hemolyzed BASIC METABOLIC [id number] 08:43:00 Test Item Value Reference Range Interpretation [...] S NOT APPLICABLE FOR DIALYSIS PATIEN TS. [id number] 03:36:00 Test Item Value Reference Range Interpretation Comments MAGNESIUM (BEAKER) (test code = 1.8 mg/dL 1.6-2.6 627) BASIC METABOLIC [id number] 03:36:00 Test Item Value Reference Range Interpretation [...] PATIEN TS. CBC W/PLT COUNT & AUTO [id number] 03:10:00 Test Item Value Reference Range Interpretation [...] 0-1 PERCENT (BEAKER) (test code = 2801) [id number] 06:05:00 Test Item Value Reference Range Interpretation Comments MAGNESIUM (BEAKER) (test code = 1.9 mg/dL 1.6-2.6 627) BASIC METABOLIC [id number] 06:05:00 Test Item Value Reference Range Interpretation [...] PATIEN TS. CBC W/PLT COUNT & AUTO [id number] 05:42:00 Test Item Value Reference Range Interpretation [...] 0-1 PERCENT (BEAKER) (test code = 2801) POCT-GLUCOSE [id number] 18:07:00 Test Item Value Reference Range Interpretation Comments POC-GLUCOSE METER 97 mg/dL 70-110 : TESTED A T [facility] [address] ([facility]) (test code = [facility], 1538) [id number]: Aircraft Painter Apprentice/Techni criss ID = [id number] for IRAIS ESQUIVEL POCT-GLUCOSE [id number] 13:23:00 Test Item Value Reference Range Interpretation Comments POC-GLUCOSE METER 92 mg/dL 70-110 : TESTED A T [facility] (BEAKER) (test code = [facility], 1538) [id number]: Aircraft Painter Apprentice/Techni criss ID = [id number] for MANANO IRAIS Mccray TROPONIN [id number] 12:02:00 Test Item Value Reference Range Interpretation Comments TROPONIN I (BEAKER) (test code = 0.66 ng/mL 0.00-0.03 [facility]) Troponin I (TnI) levels must be [...] acidosis, acute neurological disease, and persistent tachyarrhythmia.POCT-GLUCOSE [id number] 08:03:00 Test Item Value Reference Range Interpretation Comments POC-GLUCOSE METER 99 mg/dL 70-110 : TESTED A T [facility] (BEAKER) (test code = [place], 1538) 30561: Aircraft Painter Apprentice/Techni criss ID = [id number] for IRAIS ESQUIVEL RAD, CHEST, 1 VIEW, NON [id number] 07:02:00Reason for exam:->chest tubeShould this be performed at the bedside?->YesFINAL REPORT CLINICAL INDICATION: Support lines. Comparison: 04/10/2019 The c ardiomediastinal contours are stable. Central pulmonary vascular prominence and bilateral parenchymal and pleural opacities are similar to previous. There is no pneumothorax. A right IJ CVC has been removed. Signed: Ralph New MDReport Verified Date/Time: 04/11/2019 07:02:55 TROPONIN [id number] 03:58:00 Test Item Value Reference Range Interpretation [...] failure, acidosis, acute neurological disease, and persistent tachyarrhythmia.[id number] 03:34:00 Test Item Value Reference Range Interpretation Comments PHOSPHORUS (BEAKER) (test code = 2.4 mg/dL 2.3-4.7 604) [id number] 03:34:00 Test Item Value Reference Range Interpretation Comments MAGNESIUM (BEAKER) (test code = 2.0 mg/dL 1.6-2.6 627) BASIC METABOLIC [id number] 03:34:00 Test Item Value Reference Range Interpretation [...] 0-0 (BEAKER) (test code = 413) POCT-GLUCOSE [id number] 22:10:00 Test Item Value Reference Range Interpretation Comments POC-GLUCOSE METER 139 mg/dL 70-110 H : TESTED A T [facility] (BEAKER) (test code = [facility], 1538) 53890: Aircraft Painter Apprentice/Techni criss ID = [id number] for LYUBOV MARMOLEJO POCT-GLUCOSE [id number] 21:27:00 Test Item Value Reference Range Interpretation Comments POC-GLUCOSE METER 126 mg/dL 70-110 H : TESTED A T [facility] (BEAKER) (test code = [facility], 1538) 51564: Aircraft Painter Apprentice/Techni criss ID = [id number] for Cr uz, Natty POCT-GLUCOSE [id number] 12:13:00 Test Item Value Reference Range Interpretation Comments POC-GLUCOSE METER 190 mg/dL 70-110 H : TESTED A T [facility] ([employer]ER) (test code = [facility], 1538) [id number]: Aircraft Painter Apprentice/Techni criss ID = [id number] for OM MIRELA, ALICEA RAD, CHEST, 1 VIEW, NON [id number] 04:52:00while patient is intubated or has chest [...] Range Interpretation Comments WHITE BLOOD CELL COUNT (WESTAKER) 4.9 K/ L 3.5-10.5 (test code = [...] /100 WBC 0-0 (test code = 413) [id number] 03:40:00 Test Item Value Reference Range Interpretation Comments PHOSPHORUS (BEAKER) (test code = 4.4 mg/dL 2.3-4.7 604) [id number] 03:40:00 Test Item Value Reference Range Interpretation Comments MAGNESIUM (BEAKER) (test code = 1.9 mg/dL 1.6-2.6 627) BASIC METABOLIC [id number] 03:40:00 Test Item Value Reference Range Interpretation [...] NOT APPLICABLE FOR DIALYSIS PATIEN TS. POCT-GLUCOSE [id number] 23:09:00 Test Item Value Reference Range Interpretation Comments POC-GLUCOSE METER 124 mg/dL 70-110 H : TESTED A T [facility] (BEAKER) (test code = [facility], 1538) 75965: Aircraft Painter Apprentice/Techni criss ID = [id number] for CLAUDIA ERICKSON POCT-GLUCOSE [id number] 18:45:00 Test Item Value Reference Range Interpretation Comments POC-GLUCOSE METER 145 mg/dL 70-110 H : TESTED A T [facility] (BEAKER) (test code = [facility], 1538) 03547: Aircraft Painter Apprentice/Techni criss ID = [id number] for rBown Santos POCT-GLUCOSE [id number] 17:16:00 Test Item Value Reference Range Interpretation Comments POC-GLUCOSE METER 154 mg/dL 70-110 H : Will Rep eat Test: (BEAKER) (test code = TESTED AT [facility] 1538) [facility], [address]: Aircraft Painter Apprentice/Techni criss ID = [id number] for WEST LLLUISOE BLOOD GAS, [id number] 16:11:00 Test Item Value Reference Range Interpretation [...] (BEAKER) (test code = 1819) 40.0 % [id number] 14:13:00 Test Item Value Reference Range Interpretation Comments MAGNESIUM (BEAKER) (test code = 1.6 mg/dL 1.6-2.6 627) RAD, CHEST, 1 VIEW, NON [id number] 13:42:00Reason for exam:->Status post CV Surgery post [...] MDReport Verified Date/Time: 2018 13:42:07 Reading Location: [facility] Reading Room CBC W/PLT COUNT & AUTO [id number] 13:21:00 Test Item Value Reference Range Interpretation [...] K/uL 0.00-0.00 H (CELLAVISION)(BEAKER) (test code = 9088) TOTAL COUNTED (BEAKER) (test code = 100 1351) WBC MORPHOLOGY (BEAKER) (test code Normal = 487) PLT MORPHOLOGY (BEAKER) (test code Normal = 486) POLYCHROMATOPHILLIC RBCS(BEAKER) 1+ few (test code = 478) ARTIFACT (CELLAVISION)(BEAKER) Present (test code = 3432) PLATELET CONCENTRATION Decreased (CELLAVISION)(BEAKER) (test code = 3438) Received comment: User comments: Slide comments:[id number] 13:20:00 Test Item Value Reference Range Interpretation Comments FIBRINOGEN LEVEL (BEAKER) (test 222 mg/dl 225-434 L code = 658) [id number] 13:20:00 Test Item Value Reference Range Interpretation Comments PARTIAL THROMBOPLASTIN TIME 34.1 seconds 22.5-36.0 (BEAKER) (test code = 760) PROTHROMBIN [id number] 13:19:00 Test Item Value Reference Range Interpretation [...] INR is2.5-3.5 for patients wiht mechanical heart valves.[id number] 13:17:00 Test Item Value Reference Range Interpretation Comments PHOSPHORUS (BEAKER) (test code = 3.5 mg/dL 2.3-4.7 604) BASIC METABOLIC [id number] 13:17:00 Test Item Value Reference Range Interpretation Comments SODIUM (BEAKER) 139 meq/L 136-145 (test code = 381) POTASSIUM (BEAKER) 4.7 meq/L 3.5-5.1 (test code = 379) CHLORIDE (BEAKER) 111 meq/L 98-107 H (test code = 382) CO2 (BEAKER) (test 24 meq/L code = 355) BLOOD UREA NITROGEN 12 [...] APPLICABLE FOR DIALYSIS PATIEN TS. LACTIC ACID, [id number] 13:13:00 Test Item Value Reference Range Interpretation Comments LACTATE BLOOD ARTERIAL (2) 0.9 mmol/L 0.5-2.2 (BEAKER) (test code = 2874) CALCIUM, [id number] 13:03:00 Test Item Value Reference Range Interpretation Comments CALCIUM IONIZED (BEAKER) (test 1.19 mmol/L 1.12-1.27 code = 698) PH, BLOOD (BEAKER) (test code = 7.36 1810) BLOOD GAS, [id number] 13:02:00 Test Item Value Reference Range Interpretation [...] code = 1819) 60.0 % OXYGEN SATURATION, [id number] 12:56:00 Test Item Value Reference Range Interpretation [...] 59.5 MM 55.0-65.0 (test code = 1413) [id number] 12:03:00 Test Item Value Reference Range Interpretation Comments FIBRINOGEN LEVEL (BEAKER) (test 224 mg/dl 225-434 L code = 658) [id number] 12:03:00 Test Item Value Reference Range Interpretation Comments PARTIAL THROMBOPLASTIN TIME 37.1 seconds 22.5-36.0 H (BEAKER) (test code = 760) PROTHROMBIN [id number] 12:02:00 Test Item Value Reference Range Interpretation [...] is2.5-3.5 for patients wiht mechanical heart valves.PLATELET [id number] 11:51:00 Test Item Value Reference Range Interpretation Comments PLATELET COUNT (BEAKER) (test 116 K/CU MM 150-450 L code = 756) POTASSIUM-STAT [id number] 11:47:00 Test Item Value Reference Range Interpretation Comments POTASSIUM (BEAKER) (test code = 4.8 meq/L 3.6-5.5 379) BLOOD GAS, [id number] 11:47:00 Test Item Value Reference Range Interpretation [...] (test code = 1819) 97.0 % CALCIUM, [id number] 11:47:00 Test Item Value Reference Range Interpretation Comments CALCIUM IONIZED (BEAKER) (test 1.08 mmol/L 1.12-1.27 L code = 698) PH, BLOOD (BEAKER) (test code = 7.30 1810) GLUCOSE-STAT [id number] 11:47:00 Test Item Value Reference Range Interpretation Comments GLUCOSE RANDOM (BEAKER) (test code 175 mg/dL 70-110 H = 652) SODIUM NA-STAT [id number] 11:47:00 Test Item Value Reference Range Interpretation Comments SODIUM (BEAKER) (test code = 381) 133 meq/L 135-148 L HGB/HCT (H&H) - STAT [id number] 11:47:00 Test Item Value Reference Range Interpretation [...] L (test code = 1413) BLOOD GAS, [id number] 11:17:00 Test Item Value Reference Range Interpretation [...] 21-29 = 388) BASE EXCESS ARTERIAL (BEAKER) -2.3 mmol/L -2.0-3.0 L (test code = 387) PATIENT TEMPERATURE (BEAKER) 36.3 C (test code = 1818) FIO2 (BEAKER) (test code = 1819) 91.0 % GLUCOSE-STAT [id number] 11:17:00 Test Item Value Reference Range Interpretation Comments GLUCOSE RANDOM (BEAKER) (test code 149 mg/dL 70-110 H = 652) HGB/HCT (H&H) - STAT [id number] 11:17:00 Test Item Value Reference Range Interpretation Comments HEMOGLOBIN (BEAKER) (test code = 8.5 g/dL 13.0-16.8 L 410) HEMATOCRIT (BEAKER) (test code = 25.0 % 40.0-50.0 L 411) SODIUM NA-STAT [id number] 11:17:00 Test Item Value Reference Range Interpretation Comments SODIUM (BEAKER) (test code = 381) 133 meq/L 135-148 L POTASSIUM-STAT [id number] 11:16:00 Test Item Value Reference Range Interpretation Comments POTASSIUM (BEAKER) (test code = 4.9 meq/L 3.6-5.5 379) [id number] 11:10:00 Test Item Value Reference Range Interpretation Comments ACTIVATED CLOTTING TIME 125 sec Refe rence Range: (BEAKER) (test code = 74-137 seconds, 441) Baseline/TESTED AT [address] [address] 0 [id number] 11:10:00 Test Item Value Reference Range Interpretation Comments ACTIVATED CLOTTING TIME 549 sec Refe rence Range: (BEAKER) (test code = 74-137 seconds, 441) Baseline/TESTED AT [address] 7703 0 [id number] 11:10:00 Test Item Value Reference Range Interpretation Comments ACTIVATED CLOTTING TIME 675 sec Refe rence Range: (BEAKER) (test code = 74-137 seconds, 441) Baseline/TESTED AT [address] 770 0 [id number] 11:10:00 Test Item Value Reference Range Interpretation Comments ACTIVATED CLOTTING TIME 885 sec Refe rence Range: (BEAKER) (test code = 74-137 seconds, 441) Baseline/TESTED AT [address] 7703 0 [id number] 11:10:00 Test Item Value Reference Range Interpretation Comments ACTIVATED CLOTTING TIME 643 sec Refe rence Range: (BEAKER) (test code = 74-137 seconds, 441) Baseline/TESTED AT [address] 7703 0 [id number] 10:55:00 Test Item Value Reference Range Interpretation Comments FIBRINOGEN LEVEL (BEAKER) (test 228 mg/dl 225-434 code = 658) [id number] 10:55:00 Test Item Value Reference Range Interpretation Comments PARTIAL THROMBOPLASTIN TIME 41.1 seconds 22.5-36.0 H (BEAKER) (test code = 760) PROTHROMBIN [id number] 10:54:00 Test Item Value Reference Range Interpretation [...] is2.5-3.5 for patients wiht mechanical heart valves.PLATELET [id number] 10:44:00 Test Item Value Reference Range Interpretation Comments PLATELET COUNT (BEAKER) (test code 83 K/CU MM 150-450 L = 756) BLOOD GAS, [id number] 10:44:00 Test Item Value Reference Range Interpretation [...] code = 1819) 92.0 % SODIUM NA-STAT [id number] 10:44:00 Test Item Value Reference Range Interpretation Comments SODIUM (BEAKER) (test code = 381) 130 meq/L 135-148 L GLUCOSE-STAT [id number] 10:44:00 Test Item Value Reference Range Interpretation Comments GLUCOSE RANDOM (BEAKER) (test code 154 mg/dL 70-110 H = 652) HGB/HCT (H&H) - STAT [id number] 10:44:00 Test Item Value Reference Range Interpretation Comments HEMOGLOBIN (BEAKER) (test code = 9.1 g/dL 13.0-16.8 L 410) HEMATOCRIT (BEAKER) (test code = 27.0 % 40.0-50.0 L 411) CALCIUM, [id number] 10:44:00 Test Item Value Reference Range Interpretation Comments CALCIUM IONIZED (BEAKER) (test 1.11 mmol/L 1.12-1.27 L code = 698) PH, BLOOD (BEAKER) (test code = 7.40 1810) POTASSIUM-STAT [id number] 10:40:00 Test Item Value Reference Range Interpretation Comments POTASSIUM (BEAKER) (test code = 5.0 meq/L 3.6-5.5 379) BLOOD GAS, [id number] 09:57:00 Test Item Value Reference Range Interpretation Comments PH ARTERIAL (BEAKER) (test code = 7.43 7.35-7.45 383) PCO2 ARTERIAL (BEAKER) (test code 37 mmHg 35-45 = 384) PO2 ARTERIAL (BEAKER) (test code 284 mmHg 80-90 H = 385) O2 SATURATION ARTERIAL (BEAKER) 99.7 % 96.0-97.0 H (test code = 386) HCO3 ARTERIAL (BEAKER) (test code 25 mmol/L 21-29 = 388) BASE EXCESS ARTERIAL (BEAKER) -0.1 mmol/L -2.0-3.0 (test code = 387) PATIENT TEMPERATURE (BEAKER) 34.1 C (test code = 1818) FIO2 (BEAKER) (test code = 1819) 80.0 % GLUCOSE-STAT [id number] 09:57:00 Test Item Value Reference Range Interpretation Comments GLUCOSE RANDOM (BEAKER) (test code 168 mg/dL 70-110 H = 652) SODIUM NA-STAT [id number] 09:57:00 Test Item Value Reference Range Interpretation Comments SODIUM (BEAKER) (test code = 381) 131 meq/L 135-148 L POTASSIUM-STAT [id number] 09:57:00 Test Item Value Reference Range Interpretation Comments POTASSIUM (BEAKER) (test code = 5.9 meq/L 3.6-5.5 H 379) HGB/HCT (H&H) - STAT [id number] 09:57:00 Test Item Value Reference Range Interpretation Comments HEMOGLOBIN (BEAKER) (test code = 8.5 g/dL 13.0-16.8 L 410) HEMATOCRIT (BEAKER) (test code = 25.0 % 40.0-50.0 L 411) GLUCOSE-STAT [id number] 09:31:00 Test Item Value Reference Range Interpretation Comments GLUCOSE RANDOM (BEAKER) (test code 175 mg/dL 70-110 H = 652) HGB/HCT (H&H) - STAT [id number] 09:31:00 Test Item Value Reference Range Interpretation Comments HEMOGLOBIN (BEAKER) (test code = 7.7 g/dL 13.0-16.8 L 410) HEMATOCRIT (BEAKER) (test code = 23.0 % 40.0-50.0 L 411) BLOOD GAS, [id number] 09:31:00 Test Item Value Reference Range Interpretation Comments PH ARTERIAL (BEAKER) (test code = 7.41 7.35-7.45 383) PCO2 ARTERIAL (BEAKER) (test code 37 mmHg 35-45 = 384) PO2 ARTERIAL (BEAKER) (test code 299 mmHg 80-90 H = 385) O2 SATURATION ARTERIAL (BEAKER) 99.7 % 96.0-97.0 H (test code = 386) HCO3 ARTERIAL (BEAKER) (test code 25 mmol/L 21-29 = 388) BASE EXCESS ARTERIAL (BEAKER) -1.8 mmol/L -2.0-3.0 (test code = 387) PATIENT TEMPERATURE (BEAKER) 30.0 C (test code = 1818) FIO2 (BEAKER) (test code = 1819) 65.0 % SODIUM NA-STAT [id number] 09:31:00 Test Item Value Reference Range Interpretation Comments SODIUM (BEAKER) (test code = 381) 131 meq/L 135-148 L POTASSIUM-STAT [id number] 09:29:00 Test Item Value Reference Range Interpretation Comments POTASSIUM (BEAKER) (test code = 5.5 meq/L 3.6-5.5 379) POTASSIUM-STAT [id number] 09:07:00 Test Item Value Reference Range Interpretation Comments POTASSIUM (BEAKER) 6.9 meq/L 3.6-5.5 HH Sample NO T Hemolyzed. (test code = 379) BLOOD GAS, [id number] 09:05:00 Test Item Value Reference Range Interpretation [...] (test code = 1819) 70.0 % GLUCOSE-STAT [id number] 09:05:00 Test Item Value Reference Range Interpretation Comments GLUCOSE RANDOM (BEAKER) (test code 216 mg/dL 70-110 H = 652) HGB/HCT (H&H) - STAT [id number] 09:05:00 Test Item Value Reference Range Interpretation Comments HEMOGLOBIN (BEAKER) (test code = 8.0 g/dL 13.0-16.8 L 410) HEMATOCRIT (BEAKER) (test code = 24.0 % 40.0-50.0 L 411) SODIUM NA-STAT [id number] 09:05:00 Test Item Value Reference Range Interpretation Comments SODIUM (BEAKER) (test code = 381) 123 meq/L 135-148 L GLUCOSE-STAT [id number] 08:03:00 Test Item Value Reference Range Interpretation Comments GLUCOSE RANDOM (BEAKER) (test code 107 mg/dL 70-110 = 652) POTASSIUM-STAT [id number] 08:03:00 Test Item Value Reference Range Interpretation Comments POTASSIUM (BEAKER) (test code = 4.2 meq/L 3.6-5.5 379) BLOOD GAS, [id number] 08:03:00 Test Item Value Reference Range Interpretation [...] code = 1819) 100.0 % SODIUM NA-STAT [id number] 08:03:00 Test Item Value Reference Range Interpretation Comments SODIUM (BEAKER) (test code = 381) 130 meq/L 135-148 L HGB/HCT (H&H) - STAT [id number] 08:03:00 Test Item Value Reference Range Interpretation Comments HEMOGLOBIN (BEAKER) (test code = 12.3 g/dL 13.0-16.8 L 410) HEMATOCRIT (BEAKER) (test code = 36.0 % 40.0-50.0 L 411) CALCIUM, [id number] 08:02:00 Test Item Value Reference Range Interpretation Comments CALCIUM IONIZED (BEAKER) (test 1.23 mmol/L 1.12-1.27 code = 698) PH, BLOOD (BEAKER) (test code = 7.45 1810) POCT-GLUCOSE [id number] 06:05:00 Test Item Value Reference Range Interpretation Comments POC-GLUCOSE METER 96 mg/dL 70-110 : TESTED A T [facility] 6720 (BEAKER) (test code = [place], 1538) [address]: 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 The cardiomediastinal silhouette is within normal limits for size. The osseous structures appear intact. Signed: Jaiden Galvan [facility] Verified Date/Time: 04/04/2019 13:23:46 Reading Location: [facility] Radiology Reading Room HEMOGLOBIN [id number] 13:07:00 Test Item Value Reference Range Interpretation Comments HEMOGLOBIN A1C (BEAKER) (test code = 4.7 % 4.3-6.1 368) [id number] 12:23:00 Test Item Value Reference Range Interpretation Comments MAGNESIUM (BEAKER) (test code = 2.0 mg/dL 1.6-2.6 627) COMPREHENSIVE METABOLIC [id number] 12:23:00 Test Item Value Reference Range Interpretation [...] NOT APPLICABLE FOR DIALYSIS PATIEN TS. LIPID [id number] 12:23:00 Test Item Value Reference Range Interpretation [...] 100-129 Borderline 130-159 High 160-189 Very High [id number] 12:02:00 Test Item Value Reference Range Interpretation Comments PARTIAL THROMBOPLASTIN TIME 34.5 seconds 22.5-36.0 (BEAKER) (test code = 760) PROTHROMBIN TIME/[id number] 12:01:00 Test Item Value Reference Range Interpretation [...] mechanical heart valves.CBC W/PLT COUNT & AUTO [id number] 11:52:00 Test Item Value Reference Range Interpretation [...] 0-1 H PERCENT (BEAKER) (test code = 2360)
[2021-01-01] MEDS ORDERED: FOLIC ACID 1 MG, THIAMINE HCL 100 MG, MULTIVITAMINS INJ 10 ML in NA CHLORIDE 0.9% 1,000 ML IV ONE (11:15)
[2021-01-01 11:26] LABS: Absolute Lymphocytes (CBC) 0.6 K/uL (0.7-4.9); MPV 7.5 fL (7.6-11.3)
[2021-01-01 11:44] LABS: Basophils % 2.7 % (0-1.3); Hematocrit 35.1 % (39.6-49.0); Lymphocytes % 15.5 % (15.3-44.8)
[2021-01-01 12:31] LABS: ALT/SGPT 46 U/L (12-78); AST/SGOT 104 U/L (15-37); Albumin 3.6 g/dL (3.4-5.0); Alkaline Phosphatase 96 U/L (45-117); BUN Blood Urea Nitrogen 5 mg/dL (7-18); Bicarbonate 22 mmol/L (21-32); Bilirubin Direct 0.6 mg/dL (0-0.2); Bilirubin Total 1.2 mg/dL (0.2-1.0); Glucose Level 106 mg/dL (74-106); Lipase 265 U/L (73-393); Potassium 3.4 mmol/L (3.5-5.1); Protein, Total 7.1 g/dL (6.4-8.2); Sodium Level 140 mmol/L (136-145); Troponin I < 0.02 ng/mL (0.0-0.045)
[2021-01-01] MEDS ORDERED: DIAZEPAM 10 MG/2 ML INJ SYRINGE ONE (12:39)
[2021-01-01 12:40] LABS: Platelet Estimate ADEQ; Platelets, Giant FEW
[2021-01-01 12:41] LABS: Anisocytosis SLIGHT; Blood Morphology Comment NOTED (NOT SEEN); Macrocytosis SLIGHT
--- NOTE | 2021-01-01 13:03 | EDPHYS ---
Physician Documentation [facility] Name: Gavin Polo Jr Age: 65 yrs Sex: Male : 1955 Arrival Date: 01/01/2021 Time: 10:33 Bed 2 Private MD: ED Physician Christopher Kearns HPI: 01/01 12:29 This 65 yrs old Male presents to ER via EMS with complaints of ma2 Nausea/Vomiting. 12:29 The patient presents to the emergency department with nausea, vomiting. Onset: The ma2 symptoms/episode began/occurred gradually, 1 day(s) ago. Associated signs and symptoms: Pertinent negatives: constipation, dysuria, flatulence, hematuria. Severity of symptoms: At their worst the symptoms were moderate in the emergency department the symptoms are unchanged. The patient has not experienced similar symptoms in the past. Patient has been drinking alcohol heavily, over the last 2 days, here with generalized shaking, no seizure, has nausea vomiting, all symptoms resolved after Valium. Historical: - Allergies: 11:20 No Known Allergies; sv - PMHx: 11:20 Anxiety; Atrial valve stenosis; barrots; central tremor; GERD; Hypertension; ETOH abuse;sv - Immunization history:: Adult Immunizations. - Social history:: Smoking status: Patient denies any tobacco usage or history of. Patient uses alcohol, on a daily basis. Patient/guardian denies using alcohol, street drugs, The patient lives with family. - Family history:: not pertinent. ROS: 12:29 Constitutional: Negative for fever, chills, and weight loss, Eyes: Negative for injury, ma2 pain, redness, and discharge. 12:29 All other systems are negative. Exam: 12:29 Constitutional: This is a well developed, well nourished patient who is awake, alert, ma2 and in no acute distress. Head/Face: Normocephalic, atraumatic. Eyes: Pupils equal round and reactive to light, extra-ocular motions intact. Lids and lashes normal. Conjunctiva and sclera are non-icteric and not injected. Cornea within normal limits. Periorbital areas with no swelling, redness, or edema. ENT: Nares patent. No nasal discharge, no septal abnormalities noted. Tympanic membranes are normal and external auditory canals are clear. Oropharynx with no redness, swelling, or masses, exudates, or evidence of obstruction, uvula midline. Mucous membranes moist. Neck: Trachea midline, no thyromegaly or masses palpated, and no cervical lymphadenopathy. Supple, full range of motion without nuchal rigidity, or vertebral point tenderness. No Meningismus. Chest/axilla: Normal chest wall appearance and motion. Nontender with no deformity. No lesions are appreciated. Cardiovascular: Regular rate and rhythm with a normal S1 and S2. No gallops, murmurs, or rubs. Normal PMI, no JVD. No pulse deficits. Respiratory: Lungs have equal breath sounds bilaterally, clear to auscultation and percussion. No rales, rhonchi or wheezes noted. No increased work of breathing, no retractions or nasal flaring. Abdomen/GI: Soft, non-tender, with normal bowel sounds. No distension or tympany. No guarding or rebound. No evidence of tenderness throughout. Back: No spinal tenderness. No costovertebral tenderness. Full range of motion. Skin: Warm, dry with normal turgor. Normal color with no rashes, no lesions, and no evidence of cellulitis. MS/ Extremity: Pulses equal, no cyanosis. Neurovascular intact. Full, normal range of motion. Neuro: Awake and alert, GCS 15, oriented to person, place, time, and situation. Cranial nerves II-XII grossly intact. Motor strength 5/5 in all extremities. Sensory grossly intact. Cerebellar exam normal. Normal gait. Vital Signs: 10:45 Temp 97; sv 11:00 BP 158 / 87; Pulse 95; Resp 14; Pulse Ox 100% on 2 lpm NC; sv 12:00 BP 138 / 75; Pulse 95; Resp 17; Pulse Ox 98% on 2 lpm NC; sv 13:00 BP 144 / 86; Pulse 93; Resp 13; Pulse Ox 100% ; sv MDM: 12:29 Differential diagnosis: Nonspecific abd pain, gastritis, pancreatitis, viral ma2 gastroenteritis, gastroenteritis. Data reviewed: vital signs, nurses notes. Counseling: I had a detailed discussion with the patient and/or guardian regarding: the historical points, exam findings, and any diagnostic results supporting the discharge/admit diagnosis, the presence of at least one elevated blood pressure reading (>120/80) during this emergency department visit, the need for outpatient follow up. Response to treatment: the patient's symptoms have resolved after treatment. 13:03 Patient medically screened. [facility] 01/01 10:39 Order name: Basic Metabolic Panel [facility] 01/01 10:39 Order name: CBC with Diff; Complete Time: 13:04 [facility] 01/01 10:39 Order name: Hepatic Function [facility] 01/01 10:39 Order name: Lipase [facility] 01/01 10:39 Order name: Troponin I [facility] 01/01 10:39 Order name: Basic Metabolic Panel; Complete Time: 13:04 [facility] 01/01 10:40 Order name: Liver (Hepatic) Function; Complete Time: 13:04 [facility] 01/01 10:40 Order name: Lipase; Complete Time: 13:04 [facility] 01/01 10:40 Order name: Troponin I; Complete Time: 13:04 [facility] 01/01 10:54 Order name: Alcohol Level; Complete Time: 13:04 [facility] 01/01 12:40 Order name: Manual Differential; Complete Time: 13:04 [facility] 01/01 10:39 Order name: IV Saline Lock; Complete Time: 11:17 [facility] 01/01 10:39 Order name: Labs collected and sent; Complete Time: 11:17 [facility] 01/01 10:39 Order name: EKG - Nurse/Tech; Complete Time: 11:14 [facility] 01/01 10:53 Order name: EKG; Complete Time: 10:53 sv Administered Medications: 10:36 Drug: NS 0.9% 1000 ml Route: IV; Rate: 1000 ml; Site: right wrist; sv 11:30 Follow up: Response: No adverse reaction; IV Status: Completed infusion; IV Intake: sv 1000ml 10:36 Drug: Valium (diazepam) 10 mg Route: IVP; Site: right wrist; sv 11:17 Follow up: Response: No adverse reaction sv 10:36 Drug: Zofran (Ondansetron) 4 mg Route: IVP; Site: right wrist; sv 11:17 Follow up: Response: No adverse reaction sv 11:27 Drug: Banana Bag - (NS 0.9% 1000 ml, foLIC Acid 1 mg, Thiamine 100 mg, Multivitamin 1 sv amp) Route: IV; Rate: calculated rate; Site: right antecubital; 13:45 Follow up: Response: No adverse reaction; IV Status: Completed infusion; IV Intake: sv 1000ml 12:20 Drug: Valium (diazepam) 10 mg Route: IVP; Site: right antecubital; sv 12:25 Follow up: Response: No adverse reaction sv 12:24 CANCELLED (Duplicate Order): Valium (diazepam) 10 mg IVP once sv Disposition Summary: 01/01/21 13:03 Discharge Ordered Location: Home ma2 Condition: Stable ma2 Diagnosis - Alcohol dependence with withdrawal, uncomplicated ma2 Followup: ma2 - With: Private Physician - When: Tomorrow - Reason: If symptoms return, Continuance of care Discharge Instructions: - Discharge Summary Sheet ma2 - Alcohol Withdrawal Syndrome ma2 - Alcohol Withdrawal Syndrome, [id number] ma2 Forms: - Medication Reconciliation Form ma2 - Thank You Letter ma2 - Antibiotic Education ma2 - Prescription Opioid Use ma2 Prescriptions: - Ativan 1 mg Oral Tablet - take 1 tablet by ORAL route every 8 hours As needed; 10 tablet; Refills: 0, ma2 Product Selection Permitted - Zofran 4 mg Oral Tablet - take 1 tablet by ORAL route every 12 hours As needed; 6 tablet; Refills: 0, ma2 Product Selection Permitted Signatures: Dispatcher [employer] Kayla Pandey RN RN sv Alzahri, Mohammad, MD MD ma2 Corrections: (The following items were deleted from the chart) 12:24 12:24 Valium (diazepam) 10 mg IVP once ordered. ma2 sv
--- NOTE | 2021-01-01 13:03 | ER ---
Nurse's Notes [facility] Name: Gavin Polo Jr Age: 65 yrs Sex: Male : 1955 Arrival Date: 01/01/2021 Time: 10:33 Bed 2 Private MD: Diagnosis: Alcohol dependence with withdrawal, uncomplicated Presentation: 01/01 10:36 Acuity: NICK 2 sv 10:36 Chief complaint: EMS states: n/v/shakes since this morning. 20G R AC. Coronavirus sv screen: Client denies travel out of the [place] in the last 14 days. At this time, the client does not indicate any symptoms associated with coronavirus-19. Ebola Screen: No symptoms or risks identified at this time. Initial Sepsis Screen: Does the patient meet any 2 criteria? HR > 90 bpm. No. Patient's initial sepsis screen is negative. Does the patient have a suspected source of infection? No. Patient's initial sepsis screen is negative. Risk Assessment: Do you want to hurt yourself or someone else? Patient reports no desire to harm self or others. Onset of symptoms was January 01, 2021. 10:36 Method Of Arrival: EMS: [facility] sv Triage Assessment: 10:36 General: Appears in no apparent distress. uncomfortable, well developed, Behavior is sv cooperative. Pain: Denies pain. Neuro: Level of Consciousness is awake, alert, obeys commands, Oriented to person, place, time, situation, Moves all extremities. Full function Gait is steady, Speech is normal. Cardiovascular: Rhythm is sinus rhythm. Respiratory: Airway is patent Respiratory effort is even, unlabored, Respiratory pattern is regular, symmetrical. GI: Abdomen is round Reports nausea, dry heaving. Derm: Skin is pink, warm \T\ dry. Historical: - Allergies: 11:20 No Known Allergies; sv - PMHx: 11:20 Anxiety; Atrial valve stenosis; barrots; central tremor; GERD; Hypertension; ETOH abuse;sv - Immunization history:: Adult Immunizations. - Social history:: Smoking status: Patient denies any tobacco usage or history of. Patient uses alcohol, on a daily basis. Patient/guardian denies using alcohol, street drugs, The patient lives with family. - Family history:: not pertinent. Screenin:21 Abuse screen: Denies threats or abuse. Denies injuries from another. Nutritional sv screening: No deficits noted. Tuberculosis screening: No symptoms or risk factors identified. Fall Risk None identified. Assessment: 11:27 Reassessment: Patient appears in no apparent distress at this time. No changes from sv previously documented assessment. Patient and/or family updated on plan of care and expected duration. Pain level reassessed. Patient is alert, oriented x 3, equal unlabored respirations, skin warm/dry/pink. 12:20 Reassessment: Patient appears in no apparent distress at this time. No changes from sv previously documented assessment. 13:47 Reassessment: Patient appears in no apparent distress at this time. Patient and/or sv family updated on plan of care and expected duration. Pain level reassessed. Patient is alert, oriented x 3, equal unlabored respirations, skin warm/dry/pink. Vital Signs: 10:45 Temp 97; sv 11:00 BP 158 / 87; Pulse 95; Resp 14; Pulse Ox 100% on 2 lpm NC; sv 12:00 BP 138 / 75; Pulse 95; Resp 17; Pulse Ox 98% on 2 lpm NC; sv 13:00 BP 144 / 86; Pulse 93; Resp 13; Pulse Ox 100% ; sv ED Course: 10:33 Patient arrived in ED. sv 10:34 Kayla Cortés, MAURISIO is Primary Nurse. sv 10:35 Christopher Kearns MD is Attending Physician. wv2 10:36 Triage completed. sv 10:45 Arm band placed on. sv 10:45 Patient has correct armband on for positive identification. Bed in low position. Call sv light in reach. Side rails up X2. Seizure precautions initiated. equipment monitor phototypesetting on. Pulse ox on. NIBP on. Door closed. Warm blanket given. Head of bed elevated. 11:00 EKG done, by ED staff, reviewed by Christopher Kearns MD. dh3 11:04 Initial lab(s) drawn, by ne, sent to lab. dh3 11:17 Troponin I Sent. sv 11:17 Basic Metabolic Panel Sent. sv 11:17 Hepatic Function Sent. sv 11:17 Lipase Sent. sv 13:47 No provider procedures requiring assistance completed. IV discontinued, intact, sv bleeding controlled, No redness/swelling at site. Pressure dressing applied. Administered Medications: 10:36 Drug: NS 0.9% 1000 ml Route: IV; Rate: 1000 ml; Site: right wrist; sv 11:30 Follow up: Response: No adverse reaction; IV Status: Completed infusion; IV Intake: sv 1000ml 10:36 Drug: Valium (diazepam) 10 mg Route: IVP; Site: right wrist; sv 11:17 Follow up: Response: No adverse reaction sv 10:36 Drug: Zofran (Ondansetron) 4 mg Route: IVP; Site: right wrist; sv 11:17 Follow up: Response: No adverse reaction sv 11:27 Drug: Banana Bag - (NS 0.9% 1000 ml, foLIC Acid 1 mg, Thiamine 100 mg, Multivitamin 1 sv amp) Route: IV; Rate: calculated rate; Site: right antecubital; 13:45 Follow up: Response: No adverse reaction; IV Status: Completed infusion; IV Intake: sv 1000ml 12:20 Drug: Valium (diazepam) 10 mg Route: IVP; Site: right antecubital; sv 12:25 Follow up: Response: No adverse reaction sv 12:24 CANCELLED (Duplicate Order): Valium (diazepam) 10 mg IVP once sv Intake: 11:30 IV: 1000ml; Total: 1000ml. sv 13:45 IV: 1000ml; Total: 2000ml. sv Outcome: 13:03 Discharge ordered by MD. [email or web address] 13:47 Patient left the ED. sv 13:47 Discharged to home via wheelchair, with family. sv 13:47 Condition: stable 13:47 Discharge instructions given to patient, Instructed on discharge instructions, follow up and referral plans. medication usage, Demonstrated understanding of instructions, follow-up care, medications, Prescriptions given X 1. Signatures: Kayla Cortés RN RN Tiff Barger 3 Christopher Kearns MD MD ma2 Corrections: (The following items were deleted from the chart) 11:28 10:36 Chief complaint: EMS states: n/v/shakes since this morning. 20G R hand. sv sv
[2021-01-01 13:58] VITALS: TEMP 97
[2021-01-01 14:03] VITALS: BP 144/86; O2SAT 100
== END 2021-01-01 13:47 | disposition home or self-care (01) ==
LOC: ER 10:25
DX: F10.239 Alcohol dependence with withdrawal, unspecified (principal); I10 Essential (primary) hypertension
CPT/HCPCS: 96365; 96361; 93005; 85025; 80048; 36415; 80320; 80076; 84484; 83690; 96375; 99284; 96366; J3411; J3360; J7030

== ENCOUNTER 2021-07-02 04:36 | Emergency (ER) | payer OTHER ==
--- OUTSIDE RECORDS SUMMARY | 2021-07-02 04:43 | XMS REPORT | Continuity of Care Document ---
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 Branch Body weight 2020-05-22 01:11:00 95.255 kg Universi [facility] BMI 2020-05-22 01:11:00 31.93 kg/m2 Universi [facility] Systolic blood 2020-05-22 22:15:00 130 mm[Hg] Univer sity of [facility] Diastolic blood 2020-05-22 22:15:00 74 mm[Hg] [facility] Heart rate 2020-05-22 22:15:00 84 /min [facility] Body temperature 2020-05-22 22:15:00 37.11 [facility] Respiratory rate 2020-05-22 22:15:00 20 /min [facility] Oxygen saturation in 2020-05-22 22:15:00 96 /min [facility] Arterial blood by [facility] Pulse oximetry Branch Body weight 2020-05-22 01:11:00 95.255 kg Universi [facility] BMI 2020-05-22 01:11:00 31.93 kg/m2 [facility] Procedures Procedure Date / Time Performing Clinician Source Performed MAGNESIUM 2020-05-22 18:34:00 Renée Mustafa [facility] VITAMIN B12, LEVEL 2020-05-22 18:34:00 [facility] METABOLIC PANEL 2020-05-22 18:34:00 Renée Mustafa [facility] ([id number]) [facility] ETHANOL 2020-05-22 18:34:00 Renée Mustafa [facility] CBC WITH DIFF 2020-05-22 18:34:00 Renée Mustafa [facility] PROTHROMBIN TIME / INR 2020-05-22 18:34:00 [facility] MAGNESIUM 2020-05-22 01:42:00 Girish Taylor [facility] TROPONIN I 2020-05-22 01:42:00 Girish Taylor [facility] COMP. METABOLIC PANEL 2020-05-22 01:42:00 Girish Taylor [facility] ([id number]) Medical Branch CBC WITH DIFF 2020-05-22 01:42:00 Girish Taylor [facility] COVID-19 (ID NOW RAPID 2020-05-22 01:42:00 Girish Taylor [facility] TESTING) Medical Branch COGNITIVE ASSESSMENT 2018-10-30 05:01:00 Doctor Unassigned, No U [facility] Name [facility] Branch Encounters Start End Encounter Admission Attending Care Care Encounter Source Date/Time Date/Time Type Type Clinicians Facility Department ID 2021-04-10 Emergency [facility] [id number] Univers 10:37:17 [facility] 2021-04-09 Outpatient KIMBERLY MUELLER Surgery [id number] SLE 08:07:25 MOHAMED 2021-05-12 2021-05-12 Outpatient ROS[facility]ERY [facility] [id number] SLE 12:05:02 23:59:00 2021-05-04 2021-05-04 ambulatory [facility] [id number] [facility] 2021-04-13 2021-04-13 Outpatient KIMBERLY MAYORGA [facility] [id number] SLE 00:00:00 00:00:00 LENCHO 2021-04-06 2021-04-06 Outpatient [facility] [id number] [facility] 2021-04-06 2021-04-06 ambulatory [facility] [id number] [facility] 2021-03-16 2021-03-16 Outpatient [facility] [id number] [facility] 2021-03-16 2021-03-16 Outpatient [facility] [id number] [facility] 2021-03-10 2021-03-10 Outpatient [facility] [id number] [facility] 2021-03-09 2021-03-09 Outpatient [facility] [id number] [facility] 2021-01-29 2021-01-29 Outpatient [facility] [id number] [facility] 2021-01-29 2021-01-29 Outpatient [facility] [id number] [facility] 2021-01-27 2021-01-27 Outpatient [facility] [id number] [facility] 2021-01-27 2021-01-27 [facility] [id number] [facility] 2021-01-22 2021-01-22 Outpatient [facility] [id number] [facility] 2021-01-21 2021-01-21 Outpatient [facility] [id number] [facility] 2020-11-26 2020-11-26 Outpatient [facility] [id number] [facility] 2020-11-20 2020-11-20 Outpatient [facility] [id number] [facility] 2020-05-21 2020-05-22 Emergency Girish Taylor [facility] 1.2.840 .114 [id number] Univers 19:04:00 18:10:00 Hector Lyman [id number] Gurpreet Adnan [place] 4.2.7.2.686 [facility] [phone] [address] 2020-05-21 2020-05-22 Emergency Girish Taylor [facility] 1.2.840 .114 [id number] 19:04:00 18:10:00 Hector Lyman [id number] [place] 4.2.7.2.686 [place] [phone] [facility] 2019-12-01 2019-12-01 Reffabián Campos, [facility] 1.2.840.114 [id number] Univers 00:00:00 00:00:00 Kit Slade [id number] ity [place] [phone] [address] 2019-12-01 2019-12-01 [facility] Cam[facility], [facility] 1.2.840.114 [id number] 00:00:00 00:00:00 Kti Tsaiton [id number] [place] 4.2.7.2.686 Professio [phone] [address] 2019-11-08 2019-11-08 [facility] 1.2.840.114 [id number] Univers 00:00:00 00:00:00 Kit Slade [id number] [place] [phone] [address] 2019-11-08 2019-11-08 [facility] 1.2.840.114 [id number] 00:00:00 00:00:00 Kit Slade [id number] [place] 4.2.7.2.686 Professio [phone] [address] 2019-10-17 2019-10-17 [facility] 1.2.840.114 [id number] Univers 00:00:00 00:00:00 Kit Tsaiton 350.1.13.10 ity [place] [phone] Wi [address] 2019-10-17 2019-10-17 [facility] 1.2.840.114 [id number] 00:00:00 00:00:00 Kit Slade 350.1.13.10 [place] 4.2.7.2.686 Professio [phone] [address] 2019-09-16 2019-09-16 [facility] 1.2.840.114 [id number] Univers 00:00:00 00:00:00 Kit Slade 350.1.13.10 [place] [phone] [address] 2019-09-16 2019-09-16 [facility] 1.2.840.114 [id number] 00:00:00 00:00:00 Kit Slade 350.1.13.10 [place] 4.2.7.2.686 Professio [phone] [address] 2019-07-18 2019-07-18 [facility] 1.2.840.114 [id number] Univers 00:00:00 00:00:00 Kit Slade 350.1.13.10 [place] [phone] [address] 2019-07-18 2019-07-18 [facility] 1.2.840.114 [id number] 00:00:00 00:00:00 Kit Slade 350.1.13.10 [place] 4.2.7.2.686 Professio [phone] [address] 2019-07-17 2019-07-17 [facility] 1.2.840.114 [id number] Univers 00:00:00 00:00:00 Kit Slade 350.1.13.10 it[place] [phone] [address] 2019-07-17 2019-07-17 Telephone Beth [facility] 1.2.840.114 [id number] 00:00:00 00:00:00 Kit Narvaez [place] 350.1.13.10 [place] 4.2.7.2.686 [facility] [phone] [address] 2019-05-27 2019-05-27 Outpatient R KIT CAMPOS [facility] [id number] Univers 11:00:00 13:00:07 KIT CAMPOS itrober [facility] 2018-10-30 2018-10-30 Orders Doctor CHYNA 1.2.840.114 [id number] Univers 00:00:00 00:00:00 Only Unassigned, JANNET 350.1.13.10 [facility] 4.2.7.2.686 Cla[place] as [phone] [address] 2018-10-30 2018-10-30 Orders Doctor CHYNA 1.2.840.114 [id number] 00:00:00 00:00:00 Only Unassigned, JANNET 350.1.13.10 [facility] 4.2.7.2.686 [phone] 009 Results Test Description Test Time Test Comments Results Result Comments Source VITAMIN B12, LEVEL 2020-05-22 23:44:00 Test Item Value Reference Range Interpretation Comme nts VIT B12 (test code = 7224293073) 580 pg/mL 240-930 BHAVANI (test code = BHAVANI) Biotin has been reported to cause a positive bias, interpret results relative to patient's use of biotin. Lab Interpretation (test code = Normal 47124-6) [facility] 20:05:00 Test Item Value Reference Range Interpretation Comments ALCOHOL (test code = <10 mg/dL 6035840908) BHAVANI (test code = BHAVANI) <10 Afovuqdm38-191 Toxic>100 Depression of EVENTS SOLUTIONS CONSULTANT>400 Fatalities Reported [facility] WITH [id number] 19:47:00 Test Item Value Reference Range Interpretation Comments WBC (test code = See_Comment L [Automated 6690-2) message] The sy stem which generated this result transmitted reference range : 4.20 - 10.70 10*3/?L. The reference range was not used to interpret this result as normal/abnormal . RBC (test code = See_Comment L [Automated 789-8) message] The sy stem which generated this result transmitted reference range : 4.26 - 5.52 10*6/?L. The reference range was not used to interpret this result as normal/abnormal . HGB (test code = 11.3 g/dL 12.2-16.4 L 718-7) HCT (test code = 32.5 % 38.4-49.3 L 4544-3) MCV (test code = 102.5 fL 81.7-95.6 H 787-2) MCH (test code = 35.6 pg 26.1-32.7 H 785-6) MCHC (test code = 34.8 g/dL 31.2-35 786-4) RDW-SD (test code = 58.4 fL 38.5-51.6 H 41283-8) RDW-CV (test code = 16.2 % 12.1-15.4 H 788-0) PLT (test code = See_Comment L [Automated 777-3) message] The sy stem which generated this result transmitted reference range : 150 - 328 10*3/ ?L. The reference r tk was not used to interpret this result as normal/abnormal . MPV (test code = 9.5 fL 9.8-13 L 05866-9) IPF % (test code = 2.9 % 1.2-10.7 Platelet count 2787287274) measured by fluorescence method. NRBC/100 WBC (test See_Comment [Automat ed code = 2701376711) message] The system which generated this result transmitted reference range : 0.0 - 10.0 /100 WBCs. The refer ence range was not u sed to interpret th is result as normal/abnormal . NRBC x10^3 (test code <0.01 See_Comment [Auto mated = 4222546538) message] The s ystem which generated this result transmitted reference range : 10*3/?L. The reference range was not used to interpret this result as normal/abnormal . GRAN MAT (NEUT) % 65.7 % (test code = 770-8) IMM GRAN % (test code 0.50 % = 4874834007) LYMPH % (test code = 23.6 % 736-9) MONO % (test code = 9.5 % 5905-5) EOS % (test code = 0.2 % 713-8) BASO % (test code = 0.5 % 706-2) GRAN MAT x10^3(ANC) 2.64 10*3/uL 1.99-6.95 (test code = 1992569590) IMM GRAN x10^3 (test <0.03 0-0.06 code = 7772402794) LYMPH x10^3 (test code 0.95 10*3/uL 1.09-3.23 L = 731-0) MONO x10^3 (test code 0.38 10*3/uL 0.36-1.02 = 742-7) EOS x10^3 (test code = <0.03 0.06-0.53 L 711-2) BASO x10^3 (test code <0.03 0.01-0.09 = 704-7) Lab Interpretation Abnormal (test code = 20934-8) [id number]2020-[facility]22 19:39:00 Test Item Value Reference Range Interpretation Comments NA (test code = 134 mmol/L 135-145 L 1751620192) K (test code = 3.3 mmol/L 3.5-5 L 1253847780) CL (test code = 100 mmol/L 98-108 9457453134) CO2 TOTAL (test code = 28 mmol/L 23-31 6081676271) AGAP (test code = 2-16 9593322535) BUN (test code = 11 mg/dL 7-23 3405671900) GLUCOSE (test code = 124 mg/dL 70-110 H 1205435143) CREATININE (test code = 0.97 mg/dL 0.6-1.25 4847832474) TOTAL BILI (test code = 1.3 mg/dL 0.1-1.1 H 9014983824) CALCIUM (test code = 9.4 mg/dL 8.6-10.6 5990621052) T PROTEIN (test code = 7.0 g/dL 6.3-8.2 9186887104) ALBUMIN (test code = 4.0 g/dL 3.5-5 4118665759) ALK PHOS (test code = 85 U/L 34-122 8463828766) ALTv (test code = 30 U/L 5-50 1742-6) AST(SGOT) (test code = 68 U/L 13-40 H 5810073393) eGFR Calculation mL/min/1.73m2 (Non-) (test code = 1936877148) eGFR Calculation mL/min/1.73m2 () (test code = 5604171442) BHAVANI (test code = BHAVANI) Association of Glomerular Filtration Rate (GFR) and Staging of Kidney Disease* + --+ --+ ------+| GFR (mL/min/1.73 m2) ?| With Kidney Damage ?| ?Without Kidney Damage+ --------+ --------+ +| ?>90 ?| ?Stage one ?| ? Normal ?+ ---+ ---+ -------+| ?60-89 ?| ?Stage two ?| ? Decreased GFR ? + --+ --+ ------+| ?30-59 ?| ?Stage three ?| ? Stage three ? + --+ --+ ------+| ?15-29 ?| ?Stage four ? | ? Stage four ?+ ---+ ---+ -------+| ?<15 (or dialysis) ? ?| ?Stage five ? | ? Stage five ?+ ---+ ---+ -------+ *Each stage assumes the associated GFR level has been in effect for at least three months. ?Stages 1 to 5, with or without kidney disease, indicate chronic kidney disease. Notes: Determination of stages one and two (with eGFR >59mL/min/1.73 m2) requires estimation of kidney damage for at least three months as defined by structural or functional abnormalities of the kidney, manifested by either:Pathological abnormalities or Markers of kidney damage (including abnormalities in the composition of the blood or urine or abnormalities in imaging tests). Lab Interpretation Abnormal (test code = 95799-9) [facility]2020-[facility] 19:22:00 Test Item Value Reference Range Interpretation Comments MAGNESIUM (test code = 6495538004) 1.8 mg/dL 1.7-2.4 Lab Interpretation (test code = Normal 10676-0) [facility] / [id number] 19:09:00 Test Item Value Reference Range Interpretation Comments PROTIME PATIENT (test See_Comment [Auto mated message] code = 5964-2) The system wh ich generated this result transmitted ref erence range: 12.0 - 1 4.7 Seconds. The re ference range was not u sed to interpret this result as normal/abnor mal. INR (test code = 6301-6) Nor mal INR <1.1; Warfarin Therap eutic range 2.0 to 3. 0 or 2.5 to 3.5, dep ending upon the indica tions. Lab Interpretation (test Normal code = 46914-6) [facility] WITH [id number] 02:43:00 Test Item Value Reference Range Interpretation Comments WBC (test code = See_Comment [Automated 6690-2) message] The sy stem which generated this result transmitted reference range : 4.20 - 10.70 10*3/?L. The reference range was not used to interpret this result as normal/abnormal . RBC (test code = See_Comment L [Automated 789-8) message] The sy stem which generated this result transmitted reference range : 4.26 - 5.52 10*6/?L. The reference range was not used to interpret this result as normal/abnormal . HGB (test code = 11.8 g/dL 12.2-16.4 L 718-7) HCT (test code = 33.8 % 38.4-49.3 L 4544-3) MCV (test code = 100.6 fL 81.7-95.6 H 787-2) MCH (test code = 35.1 pg 26.1-32.7 H 785-6) MCHC (test code = 34.9 g/dL 31.2-35 786-4) RDW-SD (test code = 57.5 fL 38.5-51.6 H 86838-8) RDW-CV (test code = 15.9 % 12.1-15.4 H 788-0) PLT (test code = See_Comment L [Automated 777-3) message] The sy stem which generated this result transmitted reference range : 150 - 328 10*3/ ?L. The reference r kt was not used to interpret this result as normal/abnormal . MPV (test code = 9.3 fL 9.8-13 L 58527-9) IPF % (test code = 2.4 % 1.2-10.7 Platelet count 4856356730) measured by fluorescence method. NRBC/100 WBC (test See_Comment [Automat ed code = 9472901305) message] The system which generated this result transmitted reference range : 0.0 - 10.0 /100 WBCs. The refer ence range was not u sed to interpret th is result as normal/abnormal . NRBC x10^3 (test code See_Comment [Auto mated = 1488584892) message] The s ystem which generated this result transmitted reference range : 10*3/?L. The reference range was not used to interpret this result as normal/abnormal . GRAN MAT (NEUT) % 77.1 % (test code = 770-8) IMM GRAN % (test code 1.20 % = 1504333647) LYMPH % (test code = 12.8 % 736-9) MONO % (test code = 8.4 % 5905-5) EOS % (test code = 0.0 % 713-8) BASO % (test code = 0.5 % 706-2) GRAN MAT x10^3(ANC) 3.33 10*3/uL 1.99-6.95 (test code = 4602045384) IMM GRAN x10^3 (test 0.05 10*3/uL 0-0.06 code = 6657535008) LYMPH x10^3 (test code 0.55 10*3/uL 1.09-3.23 L = 731-0) MONO x10^3 (test code 0.36 10*3/uL 0.36-1.02 = 742-7) EOS x10^3 (test code = <0.03 0.06-0.53 L 711-2) BASO x10^3 (test code <0.03 0.01-0.09 = 704-7) PLT ESTIMATE (test Decreased Normal A code = 9317-9) Lab Interpretation Abnormal (test code = 60883-6) [facility] [id number] 02:21:00 Test Item Value Reference Range Interpretation Comments TROPONIN I (test 0.018 ng/mL See_Comment [Automated code = 5731955922) message] The system which generated this result transmitted reference range : <=0.034. The reference range was not used to interpret this result as normal/abnormal . BHAVANI (test code = Equal or Less than BHAVANI) 0.034 ng/ml---Normal ?Note: Cardiac troponin begins to rise 3-4 hours after the onset of ischemia. Repeat in 4-6 hours if the sample was drawn within 3-4 hours of the onset of the symptom and found normal. Between 0.035 and 0.120 ng/mL--- Borderline. Questionable myocardial injury or necrosis ? ?Note: Serial measurement may be necessary to confirm or exclude the diagnosis of myocardial injury or necrosis; Clinical correlation (symptoms, EKGs, imaging studies, and others) required; Repeat in 4-6 hours if clinically indicated. ? Equal or Higher than 0.121 ng/mL---Abnormal. Myocardial Injury or Necrosis Likely ? Biotin has been reported to cause a negative bias, interpret results relative to patient's use of biotin. ? Lab Interpretation Normal (test code = 48032-1) [facility] (ID NOW RAPID TESTING)2020-05-22 02:17:00 Test Item Value Reference Range Interpretation Comments SARS-CoV-2 Rapid ID NOW Not Detected Not Detected (test code = 46777-2) BHAVANI (test code = BHAVANI) ID NOW COVID-19 Assay is an isothermal nucleic acid amplification test intended for the qualitative detection of nucleic acid from SARS-CoV-2 viral RNA in nasopharyngeal (ASSEMBLER MOVEMENT) specimens. It is used under Emergency Use Authorization (EUA) by FDA. The limit of detection (LOD) of the assay is 125 Genome Equivalents/mL. A positive result is indicative of the presence of SARS-CoV-2 RNA. ?Clinical correlation with patient history and other diagnostic information is necessary to determine patient infection status. A negative (Not Detected) result does not preclude SARS-CoV-2 infection. In patients with clinical symptoms and other tests that are consistent with SARS-CoV-2 infection, negative results should be treated as presumptive negative and a new specimen should be tested with alternative PCR molecular test. Invalid: Please collect a new specimen for repeat patient testing if clinically indicated. Lab Interpretation Normal (test code = 34128-4) [facility]. METABOLIC PANEL (68057)2020-05-22 02:09:00 Test Item Value Reference Range Interpretation Comments NA (test code = 135 mmol/L 135-145 4488735699) K (test code = 3.6 mmol/L 3.5-5 9705364828) CL (test code = 102 mmol/L 98-108 8333983027) CO2 TOTAL (test code = 21 mmol/L 23-31 L 4115758695) AGAP (test code = 2-16 5917621197) BUN (test code = 14 mg/dL 7-23 0623865863) GLUCOSE (test code = 184 mg/dL 70-110 H 7157535963) CREATININE (test code = 0.79 mg/dL 0.6-1.25 9300410230) TOTAL BILI (test code = 1.8 mg/dL 0.1-1.1 H 6292819013) CALCIUM (test code = 9.0 mg/dL 8.6-10.6 5113491428) T PROTEIN (test code = 7.5 g/dL 6.3-8.2 0606732605) ALBUMIN (test code = 4.3 g/dL 3.5-5 4334689144) ALK PHOS (test code = 84 U/L 34-122 4968220165) ALTv (test code = 34 U/L 5-50 1742-6) AST(SGOT) (test code = 81 U/L 13-40 H 9686669514) eGFR Calculation mL/min/1.73m2 (Non-) (test code = 3576524612) eGFR Calculation mL/min/1.73m2 () (test code = 3375514330) BHAVANI (test code = BHAVANI) Association of Glomerular Filtration Rate (GFR) and Staging of Kidney Disease* + --+ --+ ------+| GFR (mL/min/1.73 m2) ?| With Kidney Damage ?| ?Without Kidney Damage+ --------+ --------+ +| ?>90 ?| ?Stage one ?| ? Normal ?+ ---+ ---+ -------+| ?60-89 ?| ?Stage two ?| ? Decreased GFR ? + --+ --+ ------+| ?30-59 ?| ?Stage three ?| ? Stage three ? + --+ --+ ------+| ?15-29 ?| ?Stage four ? | ? Stage four ?+ ---+ ---+ -------+| ?<15 (or dialysis) ? ?| ?Stage five ? | ? Stage five ?+ ---+ ---+ -------+ *Each stage assumes the associated GFR level has been in effect for at least three months. ?Stages 1 to 5, with or without kidney disease, indicate chronic kidney disease. Notes: Determination of stages one and two (with eGFR >59mL/min/1.73 m2) requires estimation of kidney damage for at least three months as defined by structural or functional abnormalities of the kidney, manifested by either:Pathological abnormalities or Markers of kidney damage (including abnormalities in the composition of the blood or urine or abnormalities in imaging tests). Lab Interpretation Abnormal (test code = 07798-2) [facility]2020-[facility]-11 02:09:00 Test Item Value Reference Range Interpretation Comments MAGNESIUM (test code = 8161861924) 1.6 mg/dL 1.7-2.4 L Lab Interpretation (test code = Abnormal 21895-1) [facility] [id number] 18:37:00Surgical Pathology Report Case: [id number] Authorizing Provider: Lencho Delgado, Collected: 04/09/2019 Slime KELLY OrderingLocation: [facility] Received: 04/09/2019 1223 PERIOPERATIVE SERVICES Pathologist: Jose Alfredo Dozier MD Specimen: Aortic Valve, AORTIC VALVE LEAFLET HEART, AORTIC VALVE,VALVULECTOMY:LEAFLETS WITH NODULAR CALCIFIC ATHEROSCLEROTIC THICKENING Signing Pathologist Direct Phone Line: [phone] signed by Jose Alfredo Dozier MD on 04/15/2019 at 6:37 [id number]; [id number] aortic valve stenosisAortic valve leafletReceived fresh with patient's demographic information and surgical accession number are fragments of calcified valvular leaflet, 3.5 x 2 x up to 1 cm in greatest dimension. Testing Shaking Shipping section submitted in A1 for decalcification. HL/plPe rformedCB (HEMOGRAM ONLY)2019-04-15 07:03:00 Test Item Value Reference Range Interpretation Comments WHITE BLOOD CELL COUNT (BEAKER) 3.9 K/ L 3.5-10.5 (test code = 775) RED BLOOD CELL COUNT (BEAKER) 2.34 M/ L 4.63-6.08 L (test code = 761) HEMOGLOBIN (BEAKER) (test code = 7.8 GM/DL 13.7-17.5 L 410) HEMATOCRIT (BEAKER) (test code = 23.5 % 40.1-51.0 L 411) MEAN CORPUSCULAR VOLUME (BEAKER) 100.4 fL 79.0-92.2 H (test code = 753) MEAN CORPUSCULAR HEMOGLOBIN 33.3 pg 25.7-32.2 H (BEAKER) (test code = 751) MEAN CORPUSCULAR HEMOGLOBIN CONC 33.2 GM/DL 32.3-36.5 (BEAKER) (test code = 752) RED CELL DISTRIBUTION WIDTH 16.5 % 11.6-14.4 H (BEAKER) (test code = 412) PLATELET COUNT (BEAKER) (test 112 K/CU MM 150-450 L code = 756) MEAN PLATELET VOLUME (BEAKER) 9.5 fL 9.4-12.4 (test code = 754) NUCLEATED RED BLOOD CELLS 0 /100 WBC 0-0 (BEAKER) (test code = 413) [id number] 04:42:00 Test Item Value Reference Range Interpretation Comments MAGNESIUM (BEAKER) (test code = 1.8 mg/dL 1.6-2.6 627) BASIC METABOLIC [id number] 04:42:00 Test Item Value Reference Range Interpretation [...] PATIEN TS. CBC W/PLT COUNT & AUTO [id number] 04:28:00 Test Item Value Reference Range Interpretation [...] = 2801) CBC W/PLT COUNT & AUTO [id number] 11:55:00 Test Item Value Reference Range Interpretation [...] H PERCENT (BEAKER) (test code = 2801) [id number] 08:43:00 Test Item Value Reference Range Interpretation Comments MAGNESIUM (BEAKER) 1.9 mg/dL 1.6-2.6 Specimen slightly (test code = 627) hemolyzed BASIC METABOLIC [id number] 08:43:00 Test Item Value Reference Range Interpretation [...] S NOT APPLICABLE FOR DIALYSIS PATIEN TS. [id number] 03:36:00 Test Item Value Reference Range Interpretation Comments MAGNESIUM (BEAKER) (test code = 1.8 mg/dL 1.6-2.6 627) BASIC METABOLIC [id number] 03:36:00 Test Item Value Reference Range Interpretation [...] PATIEN TS. CBC W/PLT COUNT & AUTO [id number] 03:10:00 Test Item Value Reference Range Interpretation [...] 0-1 PERCENT (BEAKER) (test code = 2801) [id number] 06:05:00 Test Item Value Reference Range Interpretation Comments MAGNESIUM (BEAKER) (test code = 1.9 mg/dL 1.6-2.6 627) BASIC METABOLIC [id number] 06:05:00 Test Item Value Reference Range Interpretation [...] PATIEN TS. CBC W/PLT COUNT & AUTO [id number] 05:42:00 Test Item Value Reference Range Interpretation [...] PERCENT (BEAKER) (test code = 2801) POCT-GLUCOSE [id number] 18:07:00 Test Item Value Reference Range Interpretation Comments POC-GLUCOSE METER 97 mg/dL 70-110 : TESTED A T [facility] 6720 (AKER) (test code = [facility], 1538) [id number]: Cake Inspector/Techni criss ID = [id number] for IRAIS ESQUIVEL POCT-GLUCOSE [id number] 13:23:00 Test Item Value Reference Range Interpretation Comments POC-GLUCOSE METER 92 mg/dL 70-110 : TESTED A T [facility] 6720 (BEAKER) (test code = [facility], 1538) [id number]: Cake Inspector/Techni criss ID = [id number] for IRAIS ESQUIVEL TROPONIN [id number] 12:02:00 Test Item Value Reference Range Interpretation Comments TROPONIN I (BEAKER) (test code = 0.66 ng/mL 0.00-0.03 [facility]) Troponin I (TnI) levels must be interpreted [...] acidosis, acute neurological disease, and persistent tachyarrhythmia.POCT-GLUCOSE [id number] 08:03:00 Test Item Value Reference Range Interpretation Comments POC-GLUCOSE METER 99 mg/dL 70-110 : TESTED A T [facility] 6720 (BEAKER) (test code = [facility] [place], 1538) [id number]: Cake Inspector/Techni criss ID = [id number] for IRAIS ESQUIVEL RAD, CHEST, 1 VIEW, NON [id number] 07:02:00Reason for exam:->chest tubeShould this be performed at the bedside?->YesFINAL REPORT CLINICAL INDICATION: Support lines. Comparison: 04/10/2019 The c ardiomediastinal contours are stable. Central pulmonary vascular prominence and bilateral parenchymal and pleural opacities are similar to previous. There is no pneumothorax. A right IJ CVC has been removed. Signed: Ralph New MDReport Verified Date/Time: 04/11/2019 07:02:55 TROPONIN [id number] 03:58:00 Test Item Value Reference Range Interpretation [...] failure, acidosis, acute neurological disease, and persistent tachyarrhythmia.[id number] 03:34:00 Test Item Value Reference Range Interpretation Comments PHOSPHORUS (BEAKER) (test code = 2.4 mg/dL 2.3-4.7 604) [id number] 03:34:00 Test Item Value Reference Range Interpretation Comments MAGNESIUM (BEAKER) (test code = 2.0 mg/dL 1.6-2.6 627) BASIC METABOLIC [id number] 03:34:00 Test Item Value Reference Range Interpretation [...] 0-0 (BEAKER) (test code = 413) POCT-GLUCOSE [id number] 22:10:00 Test Item Value Reference Range Interpretation Comments POC-GLUCOSE METER 139 mg/dL 70-110 H : TESTED A T [facility] 6720 (BEAKER) (test code = [facility], 1538) [id number]: Cake Inspector/Techni criss ID = [id number] for LYUBOV MARMOLEJO POCT-GLUCOSE [id number] 21:27:00 Test Item Value Reference Range Interpretation Comments POC-GLUCOSE METER 126 mg/dL 70-110 H : TESTED A T [facility] 6720 (BEAKER) (test code = [facility], 1538) [id number]: Cake Inspector/Techni criss ID = [id number] for Cr uz, Natty POCT-GLUCOSE [id number] 12:13:00 Test Item Value Reference Range Interpretation Comments POC-GLUCOSE METER 190 mg/dL 70-110 H : TESTED A T [facility] 6720 (BEAKER) (test code = [facility], 1538) 21425: Cake Inspector/Techni criss ID = [id number] for OM MIRELA, ALICEA RAD, CHEST, 1 VIEW, NON [id number] 04:52:00while patient is intubated or has chest [...] /100 WBC 0-0 (test code = 413) [id number] 03:40:00 Test Item Value Reference Range Interpretation Comments PHOSPHORUS (BEAKER) (test code = 4.4 mg/dL 2.3-4.7 604) [id number] 03:40:00 Test Item Value Reference Range Interpretation Comments MAGNESIUM (BEAKER) (test code = 1.9 mg/dL 1.6-2.6 627) BASIC METABOLIC [id number] 03:40:00 Test Item Value Reference Range Interpretation [...] NOT APPLICABLE FOR DIALYSIS PATIEN TS. POCT-GLUCOSE [id number] 23:09:00 Test Item Value Reference Range Interpretation Comments POC-GLUCOSE METER 124 mg/dL 70-110 H : TESTED A T [facility] 6720 (BEAKER) (test code = [facility], 1538) [id number]: Cake Inspector/Techni criss ID = [id number] for CLAUDIA ERICKSON POCT-GLUCOSE [id number] 18:45:00 Test Item Value Reference Range Interpretation Comments POC-GLUCOSE METER 145 mg/dL 70-110 H : [facility] (BEAKER) (test code = [facility], 1538) 48[address]: Cake Inspector/Techni criss ID = [id number] for Cliff garza Brown POCT-GLUCOSE [id number] 17:16:00 Test Item Value Reference Range Interpretation Comments POC-GLUCOSE METER 154 mg/dL 70-110 H : Will Rep eat Test: (BEAKER) (test code = [facility] 1538) [facility], [id number]: Cake Inspector/Techni criss ID = [id number] for WEST LLLUISOE BLOOD GAS, [id number] 16:11:00 Test Item Value Reference Range Interpretation [...] (BEAKER) (test code = 1819) 40.0 % [id number] 14:13:00 Test Item Value Reference Range Interpretation Comments MAGNESIUM (BEAKER) (test code = 1.6 mg/dL 1.6-2.6 627) RAD, CHEST, 1 VIEW, NON [id number] 13:42:00Reason for exam:->Status post CV Surgery post [...] MDReport Verified Date/Time: 2018 13:42:07 Reading Location: [facility] Reading Room CBC W/PLT COUNT & AUTO [id number] 13:21:00 Test Item Value Reference Range Interpretation [...] K/uL 0.00-0.00 H (CELLAVISION)(BEAKER) (test code = 5388) TOTAL COUNTED (BEAKER) (test code = 100 1351) WBC MORPHOLOGY (BEAKER) (test code Normal = 487) PLT MORPHOLOGY (BEAKER) (test code Normal = 486) POLYCHROMATOPHILLIC RBCS(BEAKER) 1+ few (test code = 478) ARTIFACT (CELLAVISION)(BEAKER) Present (test code = 3432) PLATELET CONCENTRATION Decreased (CELLAVISION)(BEAKER) (test code = 343) Received comment: User comments: Slide comments:[id number] 13:20:00 Test Item Value Reference Range Interpretation Comments FIBRINOGEN LEVEL (BEAKER) (test 222 mg/dl 225-434 L code = 658) [id number] 13:20:00 Test Item Value Reference Range Interpretation Comments PARTIAL THROMBOPLASTIN TIME 34.1 seconds 22.5-36.0 (BEAKER) (test code = 760) PROTHROMBIN [id number] 13:19:00 Test Item Value Reference Range Interpretation [...] INR is2.5-3.5 for patients wiht mechanical heart valves.[id number] 13:17:00 Test Item Value Reference Range Interpretation Comments PHOSPHORUS (BEAKER) (test code = 3.5 mg/dL 2.3-4.7 604) BASIC METABOLIC [id number] 13:17:00 Test Item Value Reference Range Interpretation Comments SODIUM (BEAKER) 139 meq/L 136-145 (test code = 381) POTASSIUM (BEAKER) 4.7 meq/L 3.5-5.1 (test code = 379) CHLORIDE (BEAKER) 111 meq/L 98-107 H (test code = 382) CO2 (BEAKER) (test 24 meq/L - code = 355) BLOOD UREA NITROGEN 12 [...] APPLICABLE FOR DIALYSIS PATIEN TS. LACTIC ACID, [id number] 13:13:00 Test Item Value Reference Range Interpretation Comments LACTATE BLOOD ARTERIAL (2) 0.9 mmol/L 0.5-2.2 (BEAKER) (test code = 2874) CALCIUM, [id number] 13:03:00 Test Item Value Reference Range Interpretation Comments CALCIUM IONIZED (BEAKER) (test 1.19 mmol/L 1.12-1.27 code = 698) PH, BLOOD (BEAKER) (test code = 7.36 1810) BLOOD GAS, [id number] 13:02:00 Test Item Value Reference Range Interpretation [...] code = 1819) 60.0 % OXYGEN SATURATION, [id number] 12:56:00 Test Item Value Reference Range Interpretation [...] 59.5 MM 55.0-65.0 (test code = 1413) [id number] 12:03:00 Test Item Value Reference Range Interpretation Comments FIBRINOGEN LEVEL (BEAKER) (test 224 mg/dl 225-434 L code = 658) [id number] 12:03:00 Test Item Value Reference Range Interpretation Comments PARTIAL THROMBOPLASTIN TIME 37.1 seconds 22.5-36.0 H (BEAKER) (test code = 760) PROTHROMBIN [id number] 12:02:00 Test Item Value Reference Range Interpretation [...] is2.5-3.5 for patients wiht mechanical heart valves.PLATELET [id number] 11:51:00 Test Item Value Reference Range Interpretation Comments PLATELET COUNT (BEAKER) (test 116 K/CU MM 150-450 L code = 756) POTASSIUM-STAT [id number] 11:47:00 Test Item Value Reference Range Interpretation Comments POTASSIUM (BEAKER) (test code = 4.8 meq/L 3.6-5.5 379) BLOOD GAS, [id number] 11:47:00 Test Item Value Reference Range Interpretation Comments PH ARTERIAL (BEAKER) (test code = 7.32 7.35-7.45 L 383) PCO2 ARTERIAL (BEAKER) (test code 47 mmHg 35-45 H = 384) PO2 ARTERIAL (BEAKER) (test code 331 mmHg 80-90 H = 385) O2 SATURATION ARTERIAL (BEAKER) 99.7 % 96.0-97.0 H (test code = 386) HCO3 ARTERIAL (BEAKER) (test code 24 mmol/L -29 = 388) BASE EXCESS ARTERIAL (BEAKER) -2.4 mmol/L -2.0-3.0 L (test code = 387) PATIENT TEMPERATURE (BEAKER) 35.9 C (test code = 1818) FIO2 (BEAKER) (test code = 1819) 97.0 % CALCIUM, [id number] 11:47:00 Test Item Value Reference Range Interpretation Comments CALCIUM IONIZED (BEAKER) (test 1.08 mmol/L 1.12-1.27 L code = 698) PH, BLOOD (BEAKER) (test code = 7.30 1810) GLUCOSE-STAT [id number] 11:47:00 Test Item Value Reference Range Interpretation Comments GLUCOSE RANDOM (BEAKER) (test code 175 mg/dL 70-110 H = 652) SODIUM NA-STAT [id number] 11:47:00 Test Item Value Reference Range Interpretation Comments SODIUM (BEAKER) (test code = 381) 133 meq/L 135-148 L HGB/HCT (H&H) - STAT [id number] 11:47:00 Test Item Value Reference Range Interpretation [...] L (test code = 1413) BLOOD GAS, [id number] 11:17:00 Test Item Value Reference Range Interpretation [...] (test code = 1819) 91.0 % GLUCOSE-STAT [id number] 11:17:00 Test Item Value Reference Range Interpretation Comments GLUCOSE RANDOM (BEAKER) (test code 149 mg/dL 70-110 H = 652) HGB/HCT (H&H) - STAT [id number] 11:17:00 Test Item Value Reference Range Interpretation Comments HEMOGLOBIN (BEAKER) (test code = 8.5 g/dL 13.0-16.8 L 410) HEMATOCRIT (BEAKER) (test code = 25.0 % 40.0-50.0 L 411) SODIUM NA-STAT [id number] 11:17:00 Test Item Value Reference Range Interpretation Comments SODIUM (BEAKER) (test code = 381) 133 meq/L 135-148 L POTASSIUM-STAT [id number] 11:16:00 Test Item Value Reference Range Interpretation Comments POTASSIUM (BEAKER) (test code = 4.9 meq/L 3.6-5.5 379) [id number] 11:10:00 Test Item Value Reference Range Interpretation Comments ACTIVATED CLOTTING TIME 125 sec Refe rence Range: (BEAKER) (test code = 74-137 seconds, 441) Baseline/TESTED AT [address] [address] [id number] 11:10:00 Test Item Value Reference Range Interpretation Comments ACTIVATED CLOTTING TIME 549 sec Refe rence Range: (BEAKER) (test code = 74-137 seconds, 441) Baseline/TESTED AT [address] [address] 0 [id number] 11:10:00 Test Item Value Reference Range Interpretation Comments ACTIVATED CLOTTING TIME 675 sec Refe rence Range: (BEAKER) (test code = 74-137 seconds, 441) Baseline/TESTED AT [address] 7[address] 0 [id number] 11:10:00 Test Item Value Reference Range Interpretation Comments ACTIVATED CLOTTING TIME 885 sec Refe rence Range: (BEAKER) (test code = 74-137 seconds, 441) Baseline/TESTED AT [address] [address] 0 [id number] 11:10:00 Test Item Value Reference Range Interpretation Comments ACTIVATED CLOTTING TIME 643 sec Refe rence Range: (BEAKER) (test code = 74-137 seconds, 441) Baseline/TESTED AT [address] 7[address] 0 [id number] 10:55:00 Test Item Value Reference Range Interpretation Comments FIBRINOGEN LEVEL (BEAKER) (test 228 mg/dl 225-434 code = 658) [id number] 10:55:00 Test Item Value Reference Range Interpretation Comments PARTIAL THROMBOPLASTIN TIME 41.1 seconds 22.5-36.0 H (BEAKER) (test code = 760) PROTHROMBIN [id number] 10:54:00 Test Item Value Reference Range Interpretation [...] is2.5-3.5 for patients wiht mechanical heart valves.PLATELET [id number] 10:44:00 Test Item Value Reference Range Interpretation Comments PLATELET COUNT (BEAKER) (test code 83 K/CU MM 150-450 L = 756) BLOOD GAS, [id number] 10:44:00 Test Item Value Reference Range Interpretation [...] code = 1819) 92.0 % SODIUM NA-STAT [id number] 10:44:00 Test Item Value Reference Range Interpretation Comments SODIUM (BEAKER) (test code = 381) 130 meq/L 135-148 L GLUCOSE-STAT [id number] 10:44:00 Test Item Value Reference Range Interpretation Comments GLUCOSE RANDOM (BEAKER) (test code 154 mg/dL 70-110 H = 652) HGB/HCT (H&H) - STAT [id number] 10:44:00 Test Item Value Reference Range Interpretation Comments HEMOGLOBIN (BEAKER) (test code = 9.1 g/dL 13.0-16.8 L 410) HEMATOCRIT (BEAKER) (test code = 27.0 % 40.0-50.0 L 411) CALCIUM, [id number] 10:44:00 Test Item Value Reference Range Interpretation Comments CALCIUM IONIZED (BEAKER) (test 1.11 mmol/L 1.12-1.27 L code = 698) PH, BLOOD (BEAKER) (test code = 7.40 1810) POTASSIUM-STAT [id number] 10:40:00 Test Item Value Reference Range Interpretation Comments POTASSIUM (BEAKER) (test code = 5.0 meq/L 3.6-5.5 379) BLOOD GAS, [id number] 09:57:00 Test Item Value Reference Range Interpretation [...] (test code = 1819) 80.0 % GLUCOSE-STAT [id number] 09:57:00 Test Item Value Reference Range Interpretation Comments GLUCOSE RANDOM (BEAKER) (test code 168 mg/dL 70-110 H = 652) SODIUM NA-STAT [id number] 09:57:00 Test Item Value Reference Range Interpretation Comments SODIUM (BEAKER) (test code = 381) 131 meq/L 135-148 L POTASSIUM-STAT [id number] 09:57:00 Test Item Value Reference Range Interpretation Comments POTASSIUM (BEAKER) (test code = 5.9 meq/L 3.6-5.5 H 379) HGB/HCT (H&H) - STAT [id number] 09:57:00 Test Item Value Reference Range Interpretation Comments HEMOGLOBIN (BEAKER) (test code = 8.5 g/dL 13.0-16.8 L 410) HEMATOCRIT (BEAKER) (test code = 25.0 % 40.0-50.0 L 411) BLOOD GAS, [id number] 09:31:00 Test Item Value Reference Range Interpretation [...] code = 1819) 65.0 % SODIUM NA-STAT [id number] 09:31:00 Test Item Value Reference Range Interpretation Comments SODIUM (BEAKER) (test code = 381) 131 meq/L 135-148 L GLUCOSE-STAT [id number] 09:31:00 Test Item Value Reference Range Interpretation Comments GLUCOSE RANDOM (BEAKER) (test code 175 mg/dL 70-110 H = 652) HGB/HCT (H&H) - STAT [id number] 09:31:00 Test Item Value Reference Range Interpretation Comments HEMOGLOBIN (BEAKER) (test code = 7.7 g/dL 13.0-16.8 L 410) HEMATOCRIT (BEAKER) (test code = 23.0 % 40.0-50.0 L 411) POTASSIUM-STAT [id number] 09:29:00 Test Item Value Reference Range Interpretation Comments POTASSIUM (BEAKER) (test code = 5.5 meq/L 3.6-5.5 379) POTASSIUM-STAT [id number] 09:07:00 Test Item Value Reference Range Interpretation Comments POTASSIUM (BEAKER) 6.9 meq/L 3.6-5.5 HH Sample NO T Hemolyzed. (test code = 379) BLOOD GAS, [id number] 09:05:00 Test Item Value Reference Range Interpretation Comments PH ARTERIAL (BEAKER) (test code = 7.38 7.35-7.45 383) PCO2 ARTERIAL (BEAKER) (test code 43 mmHg 35-45 = 384) PO2 ARTERIAL (BEAKER) (test code 323 mmHg 80-90 H = 385) O2 SATURATION ARTERIAL (BEAKER) 99.7 % 96.0-97.0 H (test code = 386) HCO3 ARTERIAL (BEAKER) (test code 26 mmol/L -29 = 388) BASE EXCESS ARTERIAL (BEAKER) -0.7 mmol/L -2.0-3.0 (test code = 387) PATIENT TEMPERATURE (BEAKER) 31.4 C (test code = 1818) FIO2 (BEAKER) (test code = 1819) 70.0 % GLUCOSE-STAT [id number] 09:05:00 Test Item Value Reference Range Interpretation Comments GLUCOSE RANDOM (BEAKER) (test code 216 mg/dL 70-110 H = 652) HGB/HCT (H&H) - STAT [id number] 09:05:00 Test Item Value Reference Range Interpretation Comments HEMOGLOBIN (BEAKER) (test code = 8.0 g/dL 13.0-16.8 L 410) HEMATOCRIT (BEAKER) (test code = 24.0 % 40.0-50.0 L 411) SODIUM NA-STAT [id number] 09:05:00 Test Item Value Reference Range Interpretation Comments SODIUM (BEAKER) (test code = 381) 123 meq/L 135-148 L BLOOD GAS, [id number] 08:03:00 Test Item Value Reference Range Interpretation [...] code = 1819) 100.0 % SODIUM NA-STAT [id number] 08:03:00 Test Item Value Reference Range Interpretation Comments SODIUM (BEAKER) (test code = 381) 130 meq/L 135-148 L HGB/HCT (H&H) - STAT [id number] 08:03:00 Test Item Value Reference Range Interpretation Comments HEMOGLOBIN (BEAKER) (test code = 12.3 g/dL 13.0-16.8 L 410) HEMATOCRIT (BEAKER) (test code = 36.0 % 40.0-50.0 L 411) GLUCOSE-STAT [id number] 08:03:00 Test Item Value Reference Range Interpretation Comments GLUCOSE RANDOM (BEAKER) (test code 107 mg/dL 70-110 = 652) POTASSIUM-STAT [id number] 08:03:00 Test Item Value Reference Range Interpretation Comments POTASSIUM (BEAKER) (test code = 4.2 meq/L 3.6-5.5 379) CALCIUM, [id number] 08:02:00 Test Item Value Reference Range Interpretation Comments CALCIUM IONIZED (BEAKER) (test 1.23 mmol/L 1.12-1.27 code = 698) PH, BLOOD (BEAKER) (test code = 7.45 1810) POCT-GLUCOSE [id number] 06:05:00 Test Item Value Reference Range Interpretation Comments POC-GLUCOSE METER 96 mg/dL 70-110 : TESTED A T [facility] 6720 (BEAKER) (test code = [facility] [place], 1538) [id number]: Cake Inspector/Techni criss ID = [id number] for JORD AN, LACRYSTAL RAD, CHEST, 2 [id number] 13:23:00In departmentReason for exam:->Aoritc valve replacement Pre op screenFINAL REPORT CLINICAL HISTORY: Aortic valve replacement Pre op screen TECHNIQUE: 2 views of the chest COMPARISON: None IMPRESSION: There are no focal infiltrates or effusions. The cardiomediastinal silhouette is within normal limits for size. The osseous structures appear intact. Signed: Jaiden Galvan [facility] Verified Date/Time: 04/04/2019 13:23:46 Reading Location: [facility] Radiology Reading Room HEMOGLOBIN [id number] 13:07:00 Test Item Value Reference Range Interpretation Comments HEMOGLOBIN A1C (BEAKER) (test code = 4.7 % 4.3-6.1 368) [id number] 12:23:00 Test Item Value Reference Range Interpretation Comments MAGNESIUM (BEAKER) (test code = 2.0 mg/dL 1.6-2.6 627) COMPREHENSIVE METABOLIC [id number] 12:23:00 Test Item Value Reference Range Interpretation [...] NOT APPLICABLE FOR DIALYSIS PATIEN TS. LIPID [id number] 12:23:00 Test Item Value Reference Range Interpretation [...] 100-129 Borderline 130-159 High 160-189 Very High [id number] 12:02:00 Test Item Value Reference Range Interpretation Comments PARTIAL THROMBOPLASTIN TIME 34.5 seconds 22.5-36.0 (BEAKER) (test code = 760) PROTHROMBIN TIME/[id number] 12:01:00 Test Item Value Reference Range Interpretation [...] mechanical heart valves.CBC W/PLT COUNT & AUTO [id number] 11:52:00 Test Item Value Reference Range Interpretation [...] 0-1 H PERCENT (BEAKER) (test code = 5333)"
[2021-07-02] MEDS ORDERED: TETANUS & DIPHTHERIA TOX,ADULT 0.5 ML VIAL ONE (05:31)
[2021-07-02 05:40] LABS: Absolute Lymphocytes (CBC) 0.5 K/uL (0.7-4.9); Hematocrit 32.4 % (39.6-49.0); Lymphocytes % 12.9 % (15.3-44.8); MPV 6.5 fL (7.6-11.3); RBC Red Blood Cell Count 2.87 M/uL (4.33-5.43)
[2021-07-02 05:44] LABS: Protime INR 1.08
[2021-07-02 05:55] LABS: Albumin 3.2 g/dL (3.4-5.0); Bilirubin Direct 0.7 mg/dL (0-0.2); Bilirubin Total 1.4 mg/dL (0.2-1.0); Potassium 3.9 mmol/L (3.5-5.1); Protein, Total 7.2 g/dL (6.4-8.2)
[2021-07-02] MEDS ORDERED: LIDOCAINE 1% W/EPI 1:100,000 MDV 20 ML VIAL ONE (06:28)
--- NOTE | 2021-07-02 08:20 | ER ---
Nurse's Notes [facility] Name: Gavin Polo Jr Age: 66 yrs Sex: Male : 1955 Arrival Date: 07/02/2021 Time: 04:40 Bed 4 Private MD: Diagnosis: Fall on same level, unspecified;History of falling;Laceration without foreign body of other part of head-chin /submental area Presentation: 07/02 04:46 Chief complaint: EMS states: had a fall at home and hit his neck on the corner of a sm5 coffee table. laceration to L side of neck. takes aspirin, no LOC. Care prior to arrival: Injury dressed. Mechanism of Injury: Laceration sustained at home, while walking from coffee table Injury was accidental. Trauma event details: Injury occurred: at home. Injury occurred: July 02, 2021 Injury occurred at: 02:30. 04:46 Acuity: NICK 2 5 04:46 Method Of Arrival: EMS: [facility] 05:36 Coronavirus screen: Vaccine status: Patient reports receiving the 2nd dose of the covid sm5 vaccine. Ebola Screen: No symptoms or risks identified at this time. Initial Sepsis Screen: Does the patient meet any 2 criteria? HR > 90 bpm. Does the patient have a suspected source of infection? No. Patient's initial sepsis screen is negative. Risk Assessment: Do you want to hurt yourself or someone else? Patient reports no desire to harm self or others. Onset of symptoms was July 02, 2021 at 02:30. Triage Assessment: 05:36 General: Appears in no apparent distress. Behavior is cooperative, appropriate for age. sm5 Pain: Complains of pain in neck. Neuro: No deficits noted. Level of Consciousness is awake, alert, Oriented to person, place, time, situation. Cardiovascular: No deficits noted. Capillary refill < 3 seconds Patient's skin is warm and dry. Respiratory: No deficits noted. Airway is patent Trachea midline Respiratory effort is even, unlabored. Injury Description: Laceration sustained to neck is bleeding moderately, A dressing was applied. Trauma Activation: Physician: ED Physician; Name: Tom; Notified At: 04:40; Arrived At: Physician: General Surgeon; Name: ; Notified At: 04:38; Arrived At: Physician: Radiology; Name: ; Notified At: 04:38; Arrived At: Physician: Respiratory; Name: ; Notified At: 04:38; Arrived At: Physician: Lab; Name: ; Notified At: 04:38; Arrived At: Historical: - Allergies: 05:35 No Known Allergies; sm5 - Home Meds: 05:35 armodafinil 50 mg daily Oral [Active]; benazepril 10 mg Oral tab once daily [Active]; sm5 bupropion HCl 300 mg Oral Tb24 once daily [Active]; escitalopram oxalate 20 mg Oral tab once daily [Active]; gabapentin 300 mg Oral cap 1 cap 3 times per day [Active]; naltrexone 50 mg Oral tab 1 tab once daily [Active]; Protonix 40 mg Oral TbEC 1 tab once daily [Active]; aspirin 81 mg Oral tab [Active]; - PMHx: 05:35 Anxiety; Atrial valve stenosis; barrots; central tremor; etoh abuse; GERD; Hypertension;sm5 - Immunization history: Last tetanus immunization: < 10 years ago. - Social history:: Smoking status: unknown. Screenin:52 Abuse screen: Denies threats or abuse. Denies injuries from another. Tuberculosis sm5 screening: No symptoms or risk factors identified. 05:40 Nutritional screening: No deficits noted. Fall Risk Fall in past 12 months (25 points). sm5 No secondary diagnosis (0 pts). IV access (20 points). Ambulatory Aid- None/Bed Rest/Nurse Assist (0 pts). Gait- Normal/Bed Rest/Wheelchair (0 pts) Mental Status- Oriented to own ability (0 pts). Total [place] Fall Scale indicates High Risk Score (45 or more points). Fall prevention measures have been instituted. Side Rails Up X 2 Placed Close to Nursing Station Frequent Obs/Assessments Occuring Family Present and informed to notify staff if the need to leave the bedside. Primary Survey: 04:50 NO uncontrolled hemorrhage observed. A: The patient is alert. Airway: patent. sm5 Breathing/Chest: Respiratory pattern: regular. Circulation: Cardiac rhythm: sinus rhythm. Disability Alert. Exposure/Environment: All clothing and personal items were removed. Forensic evidence collection is not deemed to be indicated at this time. Items placed in patient belonging bag. There is no evidence of uncontrolled external bleeding. Obvious injury(ies) are noted at this time: laceration to left side of neck. 05:38 Reassessment Airway Airway Patent Breathing/Chest Respiratory pattern Regular sm5 Circulation Heart rhythm Sinus rhythm. Secondary Survey: 04:51 HEENT: Head No injury/deformity Face No injury/deformity Eyes: No injury or deformity sm5 noted. to bilateral eyes. Ears: clear bilaterally. Nose: clear to bilateral nares. Throat: laceration to left side of neck. Gastrointestinal: No deficits noted. : No deficits noted. Musculoskeletal: No deficits noted. Injury Description: Laceration sustained to neck is bleeding moderately. Assessment: 04:54 General: Appears in no apparent distress. Behavior is cooperative, appropriate for age. sm5 Pain: Complains of pain in neck. Neuro: No deficits noted. Level of Consciousness is awake, alert, Oriented to person, place, time, situation. Cardiovascular: No deficits noted. Capillary refill < 3 seconds Patient's skin is warm and dry. Respiratory: No deficits noted. Airway is patent Trachea midline Respiratory effort is even, unlabored. Injury Description: Laceration sustained to neck is bleeding moderately, A dressing was applied. 05:30 Reassessment: pt bleeding through dressing. surgicel, 4x4, and ta wrap applied . sm5 07:04 Reassessment: Patient and/or family updated on plan of care and expected duration. Pain ap3 level reassessed. Patient is alert, oriented x 3, equal unlabored respirations, skin warm/dry/pink. Vital Signs: 04:40 BP 129 / 75; Pulse 106; Resp 26; Pulse Ox 97% on R/A; sm5 05:40 BP 117 / 92; Pulse 96; Resp 13; Pulse Ox 99% ; sm5 05:40 BP 121 / 87; Pulse 97; Resp 15; Pulse Ox 99% on R/A; sm5 07:04 BP 114 / 74; Pulse 100; Pulse Ox 100% on R/A; ap3 07:57 BP 118 / 63; Pulse 99; Pulse Ox 100% on R/A; ap3 08:31 BP 103 / 70; Pulse 92; Pulse Ox 100% on R/A; ap3 [place] Coma Score: 04:40 Eye Response: spontaneous(4). Verbal Response: oriented(5). Motor Response: obeys sm5 commands(6). Total: 15. Trauma Score (Adult): 04:40 Eye Response: spontaneous(1); Verbal Response: oriented(1); Motor Response: obeys sm5 commands(2); Systolic BP: > 89 mm Hg(4); Respiratory Rate: 10 to 29 per min(4); [place] Score: 15; Trauma Score: 12 ED Course: 04:40 Patient arrived in ED. bb 04:41 Wily Santos MD is Attending Physician. [facility] 04:41 Inserted saline lock: 20 gauge in right hand, using aseptic technique. sm5 04:42 Inserted saline lock: 18 gauge in left antecubital area, using aseptic technique. Blood as6 collected. 04:46 Lacey Sierra, MAURISIO is Primary Nurse. sm5 04:50 Triage completed. sm5 04:52 Patient has correct armband on for positive identification. Placed in gown. Bed in low sm5 position. Call light in reach. Side rails up X2. appliance line assembler on. Pulse ox on. NIBP on. 05:22 CT Head C Spine In Process Unspecified. EDMS 05:22 CT Facial Bones W/O Con In Process Unspecified. EDMS 05:22 CT Neck Angio In Process Unspecified. EDMS 05:30 Inserted saline lock: 18 gauge in left forearm, using aseptic technique. Blood sm5 collected. 05:33 ETOH Level Sent. sm5 05:34 Protime (+inr) Sent. sm5 05:34 Ptt, Activated Sent. sm5 05:34 LFT's Sent. sm5 05:34 Basic Metabolic Panel Sent. sm5 05:34 CBC with Diff Sent. sm5 05:34 Type And Screen Sent. sm5 05:40 Patient maintains SpO2 saturation greater than 95% on room air. Thermoregulation: warm sm5 blanket given to patient. 05:41 Arm band placed on right wrist. sm5 07:24 Attending Physician role handed off by Wily Santos MD freedom 07:24 Britton Laurent MD is Attending Physician. freedom 08:30 No provider procedures requiring assistance completed. IV discontinued, intact, ap3 bleeding controlled, No redness/swelling at site. Pressure dressing applied. Administered Medications: 05:33 Drug: Tetanus-Diphtheria Toxoid Adult 0.5 ml {Registered Route Associate: [employer]. Exp: sm5 10/30/2022. Lot #: [id number]. } Route: IM; Site: right deltoid; 06:54 Drug: Lidocaine-Epinephrine -1%: (1:100,000) 10 ml {Note: administered by Annabel Montes De Oca NP.} Volume: 20 ml; Route: Infiltration; 08:27 Drug: Thiamine 100 mg Route: IV; Rate: bolus; Site: left forearm; ap3 09:19 Follow up: IV Status: Completed infusion ap3 08:28 Drug: NS 0.9% 500 ml Route: IV; Rate: bolus; Site: left forearm; ap3 09:19 Follow up: IV Status: Completed infusion ap3 Intake: 08:30 PO: 0ml; IV: 500ml; Total: 500ml. ap3 Output: 08:30 Urine: 0ml; Total: 0ml. ap3 Outcome: 08:19 Discharge ordered by . [facility] 08:30 Patient's length of stay in the Emergency Department was greater than 2 hours. ap3 09:18 Discharged to home via wheelchair, with family. ap3 09:18 Condition: good 09:18 Discharge instructions given to patient, family, Instructed on discharge instructions, follow up and referral plans. medication usage, wound care, Demonstrated understanding of instructions, follow-up care, medications, wound care, Prescriptions given X 2. 09:29 Patient left the ED. ap3 Signatures: Dispatcher [employer] EDBritton Tompkins MD MD cha Ballard, Brenda, RN RN bb Prokisch, Amanda, RN RN ap3 Wily Santos MD MD mh7 Slawson, Ashby, RN RN as6 Lacey Sierra RN RN sm5
--- NOTE | 2021-07-02 08:20 | EDPHYS ---
Physician Documentation [facility] Name: Gavin Polo Jr Age: 66 yrs Sex: Male : 1955 Arrival Date: 07/02/2021 Time: 04:40 Bed 4 Private MD: ED Physician Britton Laurent HPI: 07/02 04:57 This 66 yrs old Male presents to ER via EMS with complaints of Fall.. 7 04:58 Details of fall: The patient fell from an upright position, while walking, and struck [facility] coffee table. Onset: The symptoms/episode began/occurred this morning, today. Associated injuries: The patient sustained neck, laceration. Severity of symptoms: At their worst the symptoms were moderate, earlier today, in the emergency department the symptoms have improved, moderately. Historical: - Allergies: 05:35 No Known Allergies; sm5 - Home Meds: 05:35 armodafinil 50 mg daily Oral [Active]; benazepril 10 mg Oral tab once daily [Active]; sm5 bupropion HCl 300 mg Oral Tb24 once daily [Active]; escitalopram oxalate 20 mg Oral tab once daily [Active]; gabapentin 300 mg Oral cap 1 cap 3 times per day [Active]; naltrexone 50 mg Oral tab 1 tab once daily [Active]; Protonix 40 mg Oral TbEC 1 tab once daily [Active]; aspirin 81 mg Oral tab [Active]; - PMHx: 05:35 Anxiety; Atrial valve stenosis; barrots; central tremor; etoh abuse; GERD; Hypertension;sm5 - Immunization history: Last tetanus immunization: < 10 years ago. - Social history:: Smoking status: unknown. ROS: 04:58 Constitutional: Negative for fever, chills, and weight loss, Eyes: Negative for injury, mh7 pain, redness, and discharge, Cardiovascular: Negative for chest pain, palpitations, and edema, Respiratory: Negative for shortness of breath, cough, wheezing, and pleuritic chest pain, Abdomen/GI: Negative for abdominal pain, nausea, vomiting, diarrhea, and constipation, Back: Negative for injury and pain, : Negative for injury, bleeding, discharge, and swelling, MS/Extremity: Negative for injury and deformity, Neuro: Negative for headache, weakness, numbness, tingling, and seizure, Psych: Negative for depression, anxiety, suicide ideation, homicidal ideation, and hallucinations, Allergy/Immunology: Negative for hives, rash, and allergies, Endocrine: Negative for neck swelling, polydipsia, polyuria, polyphagia, and marked weight changes, Hematologic/Lymphatic: Negative for swollen nodes, abnormal bleeding, and unusual bruising. Exam: 04:58 Eyes: Pupils equal round and reactive to light, extra-ocular motions intact. Lids and mh7 lashes normal. Conjunctiva and sclera are non-icteric and not injected. Cornea within normal limits. Periorbital areas with no swelling, redness, or edema. Chest/axilla: Normal chest wall appearance and motion. Nontender with no deformity. No lesions are appreciated. Cardiovascular: Regular rate and rhythm with a normal S1 and S2. No gallops, murmurs, or rubs. Normal PMI, no JVD. No pulse deficits. Respiratory: Lungs have equal breath sounds bilaterally, clear to auscultation and percussion. No rales, rhonchi or wheezes noted. No increased work of breathing, no retractions or nasal flaring. Abdomen/GI: Soft, non-tender, with normal bowel sounds. No distension or tympany. No guarding or rebound. No evidence of tenderness throughout. Back: No spinal tenderness. No costovertebral tenderness. Full range of motion. MS/ Extremity: Pulses equal, no cyanosis. Neurovascular intact. Full, normal range of motion. 04:58 Psych: Awake, alert, with orientation to person, place and time. Behavior, mood, and affect are within normal limits. 04:58 Neuro: Orientation: is normal, Mentation: is normal, Memory: is normal, Cranial nerves: grossly normal, Cerebellar function: is grossly normal, Motor: is normal, Sensation: is normal, Gait: not tested. seizure activity, is not displayed by the patient, Abnormal movements: resting tremor, is located in the right arm and left arm. 08:24 ECG was reviewed by the Attending Physician. freedom Vital Signs: 04:40 BP 129 / 75; Pulse 106; Resp 26; Pulse Ox 97% on R/A; sm5 05:40 BP 117 / 92; Pulse 96; Resp 13; Pulse Ox 99% ; sm5 05:40 BP 121 / 87; Pulse 97; Resp 15; Pulse Ox 99% on R/A; sm5 07:04 BP 114 / 74; Pulse 100; Pulse Ox 100% on R/A; ap3 07:57 BP 118 / 63; Pulse 99; Pulse Ox 100% on R/A; ap3 08:31 BP 103 / 70; Pulse 92; Pulse Ox 100% on R/A; ap3 [place] Coma Score: 04:40 Eye Response: spontaneous(4). Verbal Response: oriented(5). Motor Response: obeys sm5 commands(6). Total: 15. Trauma Score (Adult): 04:40 Eye Response: spontaneous(1); Verbal Response: oriented(1); Motor Response: obeys sm5 commands(2); Systolic BP: > 89 mm Hg(4); Respiratory Rate: 10 to 29 per min(4); [place] Score: 15; Trauma Score: 12 Laceration: 07:00 Wound Repair of 4cm ( 1.6in ) subcutaneous laceration to left sternocleidomastoid. kb Linear shaped.. Distal neuro/vascular/tendon intact. Anesthesia: Wound infiltrated with 3 mls of 1% lidocaine w/ Epi. Wound prep: Extensive cleansing with hibiclenz by me, Wound irrigation with saline by ga. Skin closed with 7 5-0 Prolene using simple sutures and sterile technique. Patient tolerated well. MDM: 07:16 Transition of care: After a detail discussion of the patient's case, care is [facility] transferred to Britton Laurent MD. 07:24 Patient medically screened. freedom 08:22 Differential diagnosis: abrasion, closed head injury, contusion, laceration, sprain, freedom strain. Data reviewed: vital signs, nurses notes, lab test result(s), EKG, radiologic studies, CT scan. Data interpreted: bus driver/monitor: rate is 99 beats/min, rhythm is regular, Pulse oximetry: on room air is 100 %. Test interpretation: by ED physician or midlevel provider: ECG. Counseling: I had a detailed discussion with the patient and/or guardian regarding: the historical points, exam findings, and any diagnostic results supporting the discharge/admit diagnosis, lab results, radiology results, the need for outpatient follow up, for definitive care, a family practitioner, a neurologist. 07/02 04:43 Order name: Basic Metabolic Panel; Complete Time: 06:02 [facility] 07/02 04:43 Order name: CBC with Diff [facility] 07/02 04:43 Order name: Type And Screen [facility] 07/02 04:43 Order name: LFT's; Complete Time: 06:02 [facility] 07/02 04:43 Order name: Protime (+inr); Complete Time: 06:02 [facility] 07/02 04:43 Order name: Ptt, Activated; Complete Time: 06:02 [facility] 07/02 04:43 Order name: CT Head C Spine [facility] 07/02 04:43 Order name: CT Facial Bones W/O Con [facility] 07/02 04:48 Order name: CT Neck Angio [facility] 07/02 05:04 Order name: ETOH Level; Complete Time: 06:02 [facility] 07/02 05:45 Order name: CREATININE WHOLE BLOOD; Complete Time: 06:02 EDMA 07/02 04:43 Order name: Labs collected and sent; Complete Time: 04:54 [facility] 07/02 08:17 Order name: EKG; Complete Time: 08:17 freedom 07/02 08:17 Order name: EKG - Nurse/Tech; Complete Time: 08:21 freedom EC:24 Rate is 91 beats/min. Rhythm is regular. QRS [place] is Normal. SD interval is normal. QRS freedom interval is normal. QT interval is normal. No Q waves. T waves are Normal. No ST changes noted. Clinical impression: Normal ECG and No evidence of ischemia. Interpreted by me. Reviewed by me. Administered Medications: 05:33 Drug: Tetanus-Diphtheria Toxoid Adult 0.5 ml {Cooling Machine Operator: [email or web address]. Exp: sm5 10/30/2022. Lot #: [id number]. } Route: IM; Site: right deltoid; 06:54 Drug: Lidocaine-Epinephrine -1%: (1:100,000) 10 ml {Note: administered by Annabel Montes De Oca NP.} Volume: 20 ml; Route: Infiltration; 08:27 Drug: Thiamine 100 mg Route: IV; Rate: bolus; Site: left forearm; ap3 09:19 Follow up: IV Status: Completed infusion ap3 08:28 Drug: NS 0.9% 500 ml Route: IV; Rate: bolus; Site: left forearm; ap3 09:19 Follow up: IV Status: Completed infusion ap3 Disposition: 08:22 Co-signature as Attending Physician, Britton Laurent MD I agree with the assessment and freedom plan of care. Disposition Summary: 07/02/21 08:19 Discharge Ordered Location: Home freedom Problem: new freedom Symptoms: have improved freedom Condition: Fair freedom Diagnosis - Fall on same level, unspecified freedom - History of falling freedom - Laceration without foreign body of other part of head - chin /submental area freedom Followup: freedom - With: Private Physician - When: 2 - 3 days - Reason: Recheck today's complaints, Continuance of care, Re-evaluation by your physician Discharge Instructions: - Discharge Summary Sheet freedom - Alcohol Use Disorder freedom - Fall Prevention in the Home, Adult freedom - Alcohol Abuse and Nutrition freedom - Laceration Care, Adult freedom - Facial Laceration, [id number] freedom - Fall Prevention in the Home, Adult, [id number] freedom Forms: - Medication Reconciliation Form freedom - Thank You Letter freedom - Antibiotic Education freedom - Prescription Opioid Use freedom Prescriptions: - Cephalexin 500 mg Oral Capsule - take 1 capsule by ORAL route every 6 hours for 7 days; 28 capsule; Refills: 0, freedom Product Selection Permitted - Multivitamin 50 Plus - take 1 tablet by ORAL route once daily; 30 tablet; Refills: 0, Product freedom Selection Permitted Signatures: Dispatcher [employer] EDMS Annabel Montes De Oca, GRAPHIC ILLUSTRATOR-C GRAPHIC ILLUSTRATOR-Britton Baker MD MD cha Prokisch, Amanda RN RN ap3 Wily Santos MD MD mh7 Lacey Sierra RN RN sm5
[2021-07-02] MEDS ORDERED: NA CHLORIDE 0.9% 500 ML ONE (08:24)
[2021-07-02] MEDS ORDERED: THIAMINE 200 MG/2 ML INJ ONE (08:25)
[2021-07-02 09:55] VITALS: O2SAT 100
[2021-07-02 09:57] VITALS: BP 103/70
[2021-07-02 11:48] LABS: Anisocytosis 1+; Blood Morphology Comment NOTED (NOT SEEN); Macrocytosis 2+; Platelet Estimate DECR; White Blood Cell Scan OK (OK)
--- NOTE | 2021-07-03 14:42 | RAD REPORT ---
EXAM DESCRIPTION: Sallyck Angio07/02/2021 6:29 am CLINICAL HISTORY: 66 years Male TRAUMA. TECHNIQUE: Following dynamic intravenous nonionic contrast infusion, multiple axial helical CT image s with multiplanar reconstructions were obtained through the neck. Coronal and sagittal MIP images we re performed. The CT study is performed according to ALARA (as low as reasonably achievable) or ALARA /IMAGE GENTLY, with automatic adjustment of mA and/or kV according to patient size. Performed on: 07/02/2021 at 5:16 AM COMPARISON: None FINDINGS: CTA NECK: AORTA: The aortic arch is well imaged and demonstrates conventional branching. The origins of the left sub clavian artery, left common carotid artery and innominate artery are patent. There are atheroscleroti c calcifications along the thoracic aortic arch and proximal great vessels. VERTEBRAL ARTERIES: The LEFT vertebral artery is normal in caliber and contour without evidence of dissection or signific ant stenosis. The left vertebral artery is dominant. The RIGHT vertebral artery is small in caliber and normal in contour without evidence of dissection o r significant stenosis. There are atherosclerotic calcifications at the origin of the right vertebral artery and there are mild segmental atherosclerotic calcifications along the intradural right verteb ral artery. CAROTID ARTERIES: There are atherosclerotic calcifications along the left common carotid artery. There is no significan t stenosis involving the left common carotid artery. The LEFT common carotid artery is otherwise unre markable. There is no evidence of stenosis, dissection or occlusion The carotid bulb demonstrates m oderate calcified atherosclerotic plaque resulting in stenosis of the proximal left ICA measuring les s than 50%. The LEFT internal carotid artery is otherwise normal in caliber and contour without evide nce of significant stenosis, dissection or occlusion. The LEFT external carotid artery is unremarkabl e. The RIGHT common carotid artery is unremarkable. There is no evidence of stenosis, dissection or occl usion. The carotid bulb demonstrates moderate calcified atherosclerotic plaque resulting in stenosis of the proximal right ICA measuring less than 50%. The RIGHT internal carotid artery is otherwise unr emarkable. There is no evidence of stenosis, dissection or occlusion. The RIGHT external carotid [place] ry is unremarkable. Other findings: The lung apices are clear. The thyroid gland is normal in size and configuration. The re is infiltration of the subcutaneous fat adjacent to the left hemimandible consistent with contusio n and laceration. There is minimal subcutaneous emphysema. The visualized paranasal sinuses reveal tr ta mucosal thickening. There is partial opacification of the bilateral mastoid air cells. The tempor omandibular joints are intact. The orbital contents are unremarkable. There is no extravasation of co ntrast or abnormal blush of contrast to suggest active arterial bleeding. There are degenerative ramos ges of the cervical spine. IMPRESSION: 1. There are atherosclerotic calcifications along the carotid bulbs and proximal inter nal carotid arteries resulting in stenosis of the proximal internal carotid arteries measuring less t craig 50%. There is no evidence of a hemodynamically significant stenosis or occlusion within the carot id or vertebral arteries bilaterally. 2. Mild atherosclerotic calcification along the left common carotid artery. 3. Contusion and laceration within the soft tissues adjacent to the left hemimandible with minimal subcutaneous emphysema. No evidence of active arterial bleeding. 4. Partial opacification of the bilateral mastoid air cells. Electronically signed by: Saskia Taylor DO 07/02/2021 5:57 AM ACCOUNT MANAGER Due to temporary technical issues with the PACS/Fluency reporting system, reports are being signed by the in house radiologists without review as a courtesy to insure prompt reporting. The interpreting radiologist is fully responsible for the content of the report.
--- NOTE | 2021-07-03 14:44 | RAD REPORT ---
EXAM DESCRIPTION: CT - Facial Bones W/ Mpr - 07/02/2021 6:29 am CLINICAL HISTORY: TRAUMA COMPARISON: None. TECHNIQUE: CT MAXILLOFACIAL WITHOUT IV CONTRAST on 07/02/2021 4:43 AM LUMBER CARRIER OPERATOR This exam was performed according to our departmental dose-optimization program, which includes autom ated exposure control, adjustment of the mA and/or kV according to patient size and/or use of iterati ve reconstruction technique. FINDINGS: There is no acute fracture. The paranasal sinuses are clear. Orbits and globes are unremar kable. Mastoid air cells are clear. Temporomandibular joints are intact. There is soft tissue swellin g overlying the left anterior mandible. IMPRESSION: No acute fracture. Electronically signed by: Jerod Christian MD 07/02/2021 6:20 AM LUMBER CARRIER OPERATOR Due to temporary technical issues with the PACS/Fluency reporting system, reports are being signed by the in house radiologists without review as a courtesy to insure prompt reporting. The interpreting radiologist is fully responsible for the content of the report.
--- NOTE | 2021-07-03 15:16 | EKG ---
Test Date: 2021-07-02 Test Time: 08:16:49 Senior Ux Designer: ALP MEASUREMENT RESULTS: Intervals: Rate: 91 ID: [id number] QRSD: 84 QT: 350 QTc: 430 [place]: P: 47 ID: [id number] QRS: 26 T: 31 INTERPRETIVE STATEMENTS: Normal sinus rhythm Normal ECG Compared to ECG 01/01/2021 10:59:01 No significant changes Electronically Signed On 07-03-21 15:14:43 PLANTING SUPERVISOR by Hilario Salazar
--- NOTE | 2021-07-03 17:28 | RAD REPORT ---
EXAM DESCRIPTION: CT - Head C Spine Mpr Wo Con - 07/02/2021 6:29 am CLINICAL HISTORY: Trauma COMPARISON: None. TECHNIQUE: CT HEAD AND CERVICAL SPINE WITHOUT CONTRAST on 07/02/2021 4:43 AM MESH MAN This exam was performed according to our departmental dose-optimization program, which includes autom ated exposure control, adjustment of the mA and/or kV according to patient size and/or use of iterati ve reconstruction technique. FINDINGS: Brain: There is no acute hemorrhage, mass effect or midline shift. Le-white differentiat ion is preserved. There is no hydrocephalus. There is no significant volume loss for age. The calvarium is intact. Orbits and globes are unremarkable. The paranasal sinuses are clear. There i s fluid within the left mastoid air cells inferiorly. There is minimal fluid in the inferior right ma stoid air cells Cervical Spine: There is no acute fracture. There is grade 1 anterolisthesis of C4 on C5. There is gr mona 1 anterolisthesis of C7 on T1. There is mild diffuse facet arthritis. There is mild to moderate narrowing of the cervical discs with sparing of C2-3. Vertebral body height s are preserved. Soft tissues are unremarkable. IMPRESSION: No acute postraumatic findings. Electronically signed by: Jerod Christian MD 07/02/2021 5:59 AM MESH MAN Due to temporary technical issues with the PACS/Fluency reporting system, reports are being signed by the in house radiologists without review as a courtesy to insure prompt reporting. The interpreting radiologist is fully responsible for the content of the report.
== END 2021-07-02 09:29 | disposition home or self-care (01) ==
LOC: ER 04:36
PROC: 0JQ50ZZ Repair Left Neck Subcutaneous Tissue and Fascia, Open Approach (ICD-10-PCS; principal; 2021-07-02)
DX: S11.81XA Laceration without foreign body of other specified part of neck, initial encounter (principal); W18.30XA Fall on same level, unspecified, initial encounter; Z91.81 History of falling; Z23 Encounter for immunization; I10 Essential (primary) hypertension; F41.9 Anxiety disorder, unspecified
CPT/HCPCS: 96365; 93005; 85025; 80048; 36415; 80320; 86900; 86850; 85610; 82565; 86901; 80076; 85730; 70450; 72125; 70486; 76377; 70498; 90471; 90714; 99285; 12002; Q9967; J3411; J7040

== ENCOUNTER 2021-08-16 06:48 | Emergency (ER) | payer OTHER ==
--- OUTSIDE RECORDS SUMMARY | 2021-08-16 06:53 | XMS REPORT | Continuity of Care Document ---
:1955 Author Organization [facility] t Address [address] [place] [address] Care Team Providers Name Role Phone KIMANI RUTHERFORD JR Primary Care Physician Unavailable Caroline Rutherford Attending Clinician Unavailable KATHERINE MURPHY Attending Clinician Unavailable DEDE TAN Attending Clinician Unavailable STANLEY DELGADO Attending Clinician Unavailable Amanda Taylor MD Attending Clinician Colin KELLY Attending Clinician Ramsey KELLY Attending Clinician Sachi Campos MD Attending Clinician SACHI CAMPOS Attending Clinician Unavailable SACHI CAMPOS Attending Clinician Unavailable Doctor Unassigned, Name Attending Clinician Unavailable KATHERINE MURPHY Admitting Clinician Unavailable DEDE TAN Admitting Clinician Unavailable Ramsey KELLY Admitting Clinician STANLEY DELGADO Admitting Clinician Unavailable Payers Payer Name Policy Type Policy Number Effective Date Expiration Date Amanda koo [employer] HMO [id number] 00:00:00 [employer] HMO POS [id number] 00:00:00 QPOS Problems Condition Condition Condition Status Onset Resolution Last Treating Co mments Source Name Details Category Date Date Treatment Clinician Date Obesity Obesity Disease Active 2019-06 Univers (BMI (BMI 2-11 ity of 30-39.9) 30-39.9) 00:00: [place] 00 Medical Branch Hypertensi Hypertensi Disease Active 2019-06 U nivers on on 2-11 ity of 00:00: [place] [address] Medical Branch Alcohol Alcohol Disease Active 2019-06 Univers withdrawal withdrawal 2-10 it y of 00:00: [place] [address] Medical Branch Aortic Aortic Disease Active 2018-06 Univers stenosis stenosis 0-29 ity of 00:00: [place] [address] Medical Branch 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) carcinoma) [place]:00[place] , face , face 00 Medical Branch Allergies, Adverse Reactions, Alerts Allergy Allergy Status Severity Reaction(s) Onset Inactive Treating Comm ents Source Name Type Date Date Clinician POLLEN Allergy Active 2018-06 [facility] EXTRACTS 0-24 00:00: 00 NO KNOWN Drug Active Univers ALLERGIE Class ity of S [facility] Social History Social Habit Start Date Stop Date Quantity Comments Source Exposure to Not sure [place] of SARS-CoV-2 (event) [facility] Sex Assigned At Universit y of [facility] Tobacco use and 2020-05-22 2020-05-22 Former user [facility] ty of exposure 00:00:00 00:00:00 [place] [facility] History SDOH 2020-05-22 2020-05-22 5 University o f Alcohol Frequency 00:00:00 00:00:00 [facility] edical Branch History SDOH 2020-05-22 2020-05-22 5 University o f Alcohol Std Drinks 00:00:00 00:00:00 [place] [facility] History SDOH 2020-05-22 2020-05-22 5 University o f Alcohol Binge 00:00:00 00:00:00 [place] Medic al Branch History SDOH Social 2020-05-22 2020-05-22 2 Unive rsity of Connections Phone 00:00:00 00:00:00 [facility] edical Branch History SDOH Social 2020-05-22 2020-05-22 98 Unive rsity of Connections Get 00:00:00 00:00:00 [place] Med ical Together Branch History SDOH Social 2020-05-22 2020-05-22 98 Unive rsity of Connections Mormon 00:00:00 00:00:00 [place] [facility] History SDOH Social 2020-05-22 2020-05-22 2 [...] University o f Transport Non-Med 00:00:00 00:00:00 [place] M edical Branch Alcohol Comment 2020-05-22 2020-05-22 drinks one Universit y of 00:00:00 00:00:00 gallon in two [place] Medic al days of whiskey Branch Alcohol intake 2020-05-22 2020-05-22 Current drinker Unive rsity of 00:00:00 00:00:00 of alcohol [place] [facility] (finding) Branch Smoking Status Start Date [...] dose [place] mg 00 on Mon [facility] 05/22/20 Branch at 2100, Until Discontinu ed, Routine atorvastati 2019-06 Yes 20mg 20 mg, Univ ers n (LIPITOR) 2-12 Oral, QHS, it y of tablet 20 03:00: First dose [place] mg 00 on Mon [facility] 05/22/20 Branch at 2100, Until Discontinu ed, Routine acetylcyst/ 2019-06 Yes .314mg Take 0.314 Univers [id number] 2-12 mg by ity of evomefol 00:11: mouth. [place] (CEREFOLIN 31 Medical NAC ORAL) Branch aspirin 2019-06 Yes 81mg Take 81 mg Univ ers (ASPIR-LOW) 2-12 by mouth ity of 81 mg EC 00:11: daily. [place] tablet 31 Medical Branch mirtazapine 2019-06 Yes 15mg Take 15 mg Univers 15 mg 2-12 by mouth ity of tablet 00:11: at [place] [address] bedtime. Medical Branch metoprolol 2019-06 Yes 12.5mg Take 12.5 Univers tartrate 25 2-12 mg by ity of mg tablet 00:11: mouth 2 [place] [address] (two) Medical times Branch daily. atorvastati 2019-06 Yes 20mg Take 20 mg Univers n 20 mg 2-12 by mouth ity of tablet 00:11: at [place] [address] bedtime. Medical Branch thiamine 2019-06 Yes [id number] 100mg Take 1 U nivers 100 mg 2-12 tablet by ity of tablet 00:00: mouth [place] 00 daily. Medical Branch foLIC acid 2019-06- No [id number] 1mg Take 1 Univers 1 mg tablet 07-24 tablet by it y of 00:00: 05:59 mouth [place] 00 :00 daily for Medical 30 days. Branch magnesium 2019-06- No [id number] 800mg Take 800 Univers oxide 420 07-24 mg by ity of mg Tab 00:00: 05:59 mouth [place] 00 :00 daily for Medical 30 days. Branch multivitami 2019-06- No [id number] 1{tbl} Take 1 Univers n tablet 07-24 [...] [place] 40 mEq 00 :00 dose, Mon Medical 05/22/20 Branch at 1645, Routine oxazepam 2019-06- No 15mg [Order 1 Univ ers (SERAX) 07-23 Start] ity of capsule 15 18:00: 17:59 Name: [place] mg 00 :00 oxazepam Medical (SERAX) [place] capsule 15 mg Signed Summary: 15 mg, [...] at 2000, Routine [Order 3 End] omeprazole 2020- Yes 40mg 40 mg, Unive rs (PRILOSEC) 2-11 Oral, ity of capsule 40 15:00: DAILY, [place] mg 00 First dose Medical on Mon Branch 05/22/20 at 0900, Until Discontinu ed escitalopra 2020- Yes 20mg 20 mg, Univ ers m oxalate 2-11 Oral, ity of (LEXAPRO) 15:00: DAILY, [place] tablet 20 00 First dose Medi yasmeen mg on Mon Branch 05/22/20 at 0900, Until Discontinu ed, Routine buPROPion 2020- Yes 300mg 300 mg, Univ ers XL 2-11 Oral, QAM, ity of (WELLBUTRIN 15:00: First dose [place] XL) tablet 00 on Mon Medical 300 mg 05/22/20 Branch at 0900, Until Discontinu ed, Routine aspirin EC 2019- Yes 81mg 81 mg, Unive rs tablet 81 2-11 Oral, ity of mg 15:00: DAILY, [place] 00 First dose Medical on Mon Branch 05/22/20 at 0900, Until Discontinu ed, Routine foLIC acid 2020- Yes 1mg 1 mg, Univer s (FOLATE) 2-11 Oral, ity of tablet 1 mg 15:00: DAILY, [place] 00 First dose Medical on Mon Branch 05/22/20 at 0900, Until Discontinu ed, Routine thiamine 2020- Yes 100mg 100 mg, Unive rs (VITAMIN 2-11 Oral, ity of B1) tablet 15:00: DAILY, [place] 100 mg 00 First dose Medical on Mon Branch 05/22/20 at 0900, Until Discontinu ed, Routine multivitami 2020- Yes 1{tbl} 1 tablet, Univers n tablet 1 2-11 Oral, ity of tablet 15:00: DAILY, [place] 00 First dose Medical on Mon Branch 05/22/20 at 0900, Until Discontinu ed, Routine magnesium 2020- Yes 800mg 800 mg, Univ ers oxide 2-11 Oral, ity of (MAG-OX 15:00: DAILY, [place] 400) tablet 00 First dose Me dical 800 mg on Mon Branch 05/22/20 at 0900, Until Discontinu ed, Routine topiramate 2020-1 Yes 25mg 25 mg, Unive rs (TOPAMAX) 2 Oral, BID, ity of tablet 25 14:00: First dose [place] mg 00 on Fri Medical 05/22/20 Branch at 0800, Until Discontinu ed, Routine
ensemble member approving Restricted medication : HECTOR LYMAN metoprolol 2019-06 Yes 12.5mg 12.5 mg, U nivers tartrate 07-23 Oral, BID, ity o f (LOPRESSOR) 14:00: First dose [place] tablet 12.5 00 on Fri Medica l mg 05/22/20 Branch at 0800, Until Discontinu ed, Routine pantoprazol 2019-06- No 40mg Take 40 mg Univers e 40 mg EC 07-23 by mouth ity of tablet 12:57: 00:00 daily. [place] 39 :00 [facility] traZODone 2019-06 Yes 50mg 50 mg, Univer s (DESYREL) 07-23 Oral, ity of tablet 50 12:57: QHSPRN, [place] mg 25 Starting [facility] 05/22/20 at 0657, Until Discontinu ed, Routine, Insomnia oxazepam 2019-06 Yes 15mg 15 mg, Univers (SERAX) 07-23 Oral, ity of capsule 15 12:45: Q4HPRN, [place] mg 54 Starting [facility] 05/22/20 at 0645, Until Discontinu ed, Routine, Only while awake for DBP equal to or greater than 100, HR equal to or greater than 100. traMADoL 2019-06- No 50mg 50 mg, Univer s (ULTRAM) 07-23 Oral, ity of tablet 50 08:52: 08:51 Q8HPRN, [place] mg 28 :28 Starting [facility] 05/22/20 at 0252, Until 05/24/20 at 0251, Routine, Pain (scale 4-6) acetaminoph 2019-06 Yes 650mg 650 mg, Un jose eduardo en 11 Oral, ity of (TYLENOL) 08:52: Q6HPRN, [place] tablet 650 25 Starting Medic al mg [facility] Branch 05/22/20 at 0252, Until Discontinu ed, Routine, Pain (scale 1-3) LORazepam 2019-06- No 2mg 2 mg, Slow U nivers (ATIVAN) 07-23 IV Push, ity of injection 2 08:15: 07:08 ONCE, 1 [place] mg 00 :00 dose, [facility] Medical 05/22/20 Branch at 0215, STAT chlordiazeP 2019-06 No 50mg 50 mg, Uni vers OXIDE 07-23 Oral, ity of (LIBRIUM) 03:45: 02:47 ONCE, 1 [place] capsule 50 00 :00 dose, [facility] Medi yasmeen mg 05/21/20 Branch at 2145, GADIEL thiamine 2019-06- No IV Univers (VITAMIN 07-23 Infusion, ity o f B1) 100 mg, 02:45: 12:46 at 150 [place] foLIC acid 00 :37 mL/hr, Medical (FOLATE) 1 CONTINUOUS Bra nch mg, , Starting multivitami [facility] n adult 05/21/20 (INFUVITE at 2045, ADULT) Until Mon 3,300 unit- 05/22/20 150 mcg/10 at 0646, mL 10 mL in 1,000 mL D5W 0.45% NaCl (1/2NS) IV Solution LORazepam 2019-06- No 1mg 1 mg, Slow U nivers (ATIVAN) 07-23 IV Push, ity of injection 1 02:45: 01:46 ONCE, 1 [place] mg 00 :00 dose, [facility] Medical 05/21/20 Branch at 2045, STAT oxazepam 15 2019-06 2020- No [id number] Take 1 Univers mg capsule 07-23 capsule by it y of 00:00: 05:59 mouth [place] 00 :00 every 6 Medical (six) Branch hours for 2 days, THEN 1 capsule 3 (three) times daily for 1 day, THEN 1 capsule 2 (two) times daily for 1 day. TOPIRAMATE 2019-0 Yes [id number] TAKE 1 Univers 25 mg 5-29 TABLET BY ity of tablet 00:00: MOUTH [place] 00 TWICE A Medical DAY Branch TOPIRAMATE 2019-0 Yes [id number] TAKE 1 Univers 25 mg 5-29 TABLET BY ity of tablet 00:00: MOUTH [place] 00 TWICE A Medical DAY Branch TOPIRAMATE 2019-0 Yes [id number] TAKE 1 Univers 25 mg 5-29 TABLET BY ity of tablet 00:00: MOUTH 00 TWICE A Medical DAY Branch TOPIRAMATE 2020-0 Yes [id number] TAKE 1 Univers 25 mg 5-07 TABLET BY ity of tablet 00:00: MOUTH [place] 00 TWICE A Medical DAY Branch TOPIRAMATE 2020-0 2020- No [id number] TAKE 1 Univers 25 mg 5-07 05-29 TABLET BY ity of tablet 00:00: 00:00 MOUTH [place] 00 :00 TWICE A Medical DAY Branch TOPIRAMATE 2020-0 Yes [id number] TAKE 1 Univers 25 mg 4-06 TABLET BY ity of tablet 00:00: MOUTH [place] 00 TWICE A Medical DAY Branch TOPIRAMATE 2020-0 2020- No [id number] TAKE 1 Univers 25 mg 4-06 05-07 TABLET BY ity of tablet 00:00: 00:00 MOUTH [place] 00 :00 TWICE A Medical DAY Branch topiramate 2020-0 Yes [id number] 50mg Take 1 Univers 50 mg 2-05 tablet by ity of tablet 00:00: [address] (two) Medical times Branch daily. topiramate 2020-0 Yes [id number] 50mg Take 1 Univers 50 mg 2-05 tablet by ity of tablet 00:00: [address] ([facility]) Medical times Branch daily. topiramate 2020-0 Yes [id number] 50mg Take 1 Univers 50 mg 2-05 tablet by ity of tablet 00:00: [address] ([facility]) Medical times Branch daily. topiramate 2020-0 Yes [id number] 50mg Take 1 Univers 50 mg 2-05 tablet by ity of tablet 00:00: [address] (two) Medical times Branch daily. topiramate 2020-0 Yes [id number] 50mg Take 1 Univers 50 mg 2-05 tablet by ity of tablet 00:00: [address] (two) Medical times Branch daily. topiramate 2020-0 Yes [id number] 50mg Take 1 Univers 50 mg 2-05 tablet by ity of tablet 00:00: [address] (two) Medical times Branch daily. topiramate 2020-0 Yes [id number] 50mg Take 1 Univers 50 mg 2-05 tablet by ity of tablet 00:00: mouth [address] [place] [address] (two) Medical times Branch daily. topiramate 2018-06 2020- No [id number] 25mg Take 1 Univers 25 mg 2-16 -05 tablet by ity of tablet 00:00: 00:00 mouth 2 [place] 00 :00 (two) Medical times Branch daily. pantoprazol 2018-06 Yes 40mg Take 40 mg Univers e 40 mg EC 0-28 by mouth ity o f tablet 17:19: daily. [address] Branch acetylcyst/ 2018-06 Yes .314mg Take 0.314 Univers [id number]/l 0-28 mg by ity of evomefol 17:19: mouth. [place] ([place] [address] Medical NAC ORAL) Branch pantoprazol 2018-06 Yes 40mg Take 40 mg Univers e 40 mg EC 0-28 by mouth ity o f tablet 17:19: daily. [address] acetylcyst/ 2018-06 Yes .314mg Take 0.314 Univers ozgqusQ17/l 0-28 mg by ity of evomefol 17:19: mouth. [place] ([place] [address] Medical NAC ORAL) Branch pantoprazol 2018-06 Yes 40mg Take 40 mg Univers e 40 mg EC 0-28 by mouth ity o f tablet 17:19: daily. [address] acetylcyst/ 2018-06 Yes .314mg Take 0.314 Univers [id number]/l 0-28 mg by ity of evomefol 17:19: mouth. [place] ([address] NAC ORAL) Branch pantoprazol 2018-06 Yes 40mg Take 40 mg Univers e 40 mg EC 0-28 by mouth ity o f tablet 17:19: daily. [address] acetylcyst/ 2018-06 Yes .314mg Take 0.314 Univers kanjgfN34/l 0-28 mg by ity of evomefol 17:19: mouth. [place] ([place] [address] Medical NAC ORAL) Branch pantoprazol 2018-06 Yes 40mg Take 40 mg Univers e 40 mg EC 0-28 by mouth ity o f tablet 17:19: daily. [address] acetylcyst/ 2018-06 Yes .314mg Take 0.314 Univers foxduqP34/l 0-28 mg by ity of evomefol 17:19: mouth. [place] ([place] [address] Medical NAC ORAL) Branch pantoprazol 2018-06 Yes 40mg Take 40 mg Univers e 40 mg EC 0-28 by mouth ity o f tablet 17:19: daily. [address] Branch acetylcyst/ 2019-1 Yes .314mg Take 0.314 Univers ygttmxC71/l 0-28 mg by ity of evomefol 17:19: mouth. [place] ([place] [address] Medical NAC ORAL) [place] omeprazole 2018-06 Yes 40mg Take 40 mg U nivers 40 mg 0-14 by mouth ity of capsule 00:00: daily. [address] omeprazole 2018-06 Yes 40mg Take 40 mg U nivers 40 mg 0-14 by mouth ity of capsule 00:00: daily. [address] Branch omeprazole 2018-06 Yes 40mg Take 40 mg U nivers 40 mg 0-14 by mouth ity of capsule 00:00: daily. [address] omeprazole 2018-06 Yes 40mg Take 40 mg U nivers 40 mg 0-14 by mouth ity of capsule 00:00: daily. [address] omeprazole 2018-06 Yes 40mg Take 40 mg U nivers 40 mg 0-14 by mouth ity of capsule 00:00: daily. [address] omeprazole 2018-06 Yes 40mg Take 40 mg U nivers 40 mg 0-14 by mouth ity of capsule 00:00: daily. [address] omeprazole 2018-06 Yes 40mg Take 40 mg U nivers 40 mg 0-14 by mouth ity of capsule 00:00: daily. [address] traZODone Yes TAKE 1/2 Univ ers 50 mg 9-23 TO 1 ity of tablet 00:00: TABLET BY [address] EVERY DAY Branch AT BEDTIME FOR SLEEP traZODone Yes TAKE 1/2 Univ ers 50 mg 9-23 TO 1 ity of tablet 00:00: TABLET BY [address] EVERY DAY Branch AT BEDTIME FOR SLEEP traZODone Yes TAKE 1/2 Univ ers 50 mg 9-23 TO 1 ity of tablet 00:00: TABLET BY [address] EVERY DAY Branch AT BEDTIME FOR SLEEP traZODone Yes TAKE 1/2 Univ ers 50 mg 9-23 TO 1 ity of tablet 00:00: TABLET BY [address] EVERY DAY Branch AT BEDTIME FOR SLEEP traZODone Yes TAKE 1/2 Univ ers 50 mg 9-23 TO 1 ity of tablet 00:00: TABLET BY [place] [address] MOUTH Medical EVERY DAY Branch AT BEDTIME FOR SLEEP traZODone Yes TAKE 1/2 Univ ers 50 mg 03-04 TO 1 ity of tablet 00:00: TABLET BY [place] [address] MOUTH Medical EVERY DAY Branch AT BEDTIME FOR SLEEP traZODone Yes TAKE 1/2 Univ ers 50 mg 03-04 TO 1 ity of tablet 00:00: TABLET BY [place] [address] MOUTH Medical EVERY DAY Branch AT BEDTIME FOR SLEEP escitalopra Yes 20mg Take 20 mg Univers m oxalate 9-21 by mouth. ity o f 20 mg 00:00: [place] tablet 00 Medical Branch escitalopra Yes 20mg Take 20 mg Univers m oxalate 9-21 by mouth. ity o f 20 mg 00:00: [place] tablet Medical Branch escitalopra Yes 20mg Take 20 mg Univers m oxalate 9-21 by mouth. ity o f 20 mg 00:00: [place] tablet Medical Branch escitalopra Yes 20mg Take 20 mg Univers m oxalate 9-21 by mouth. ity o f 20 mg 00:00: [place] tablet 00 Medical Branch escitalopra Yes 20mg Take 20 mg Univers m oxalate 9-21 by mouth. ity o f 20 mg 00:00: [place] tablet 00 Medical Branch escitalopra Yes 20mg Take 20 mg Univers m oxalate 9-21 by mouth. ity o f 20 mg 00:00: [place] tablet 00 Medical Branch escitalopra Yes 20mg Take 20 mg Univers m oxalate 9-21 by mouth. ity o f 20 mg 00:00: [place] tablet 00 Medical Branch TOPIRAMATE 0 2020- No [id number] TAKE 1 Univers 25 mg 6-12 02-05 [...] mouth ity o f tablet 15:01: daily. [place] 33 Medical Branch mirtazapine 2019- Yes 15mg Take 15 mg Univers 15 mg 5-21 by mouth ity of tablet 15:01: at [place] [address] bedtime. Medical Branch eszopiclone 2019 Yes TAKE 1 Univ ers 1 mg tablet 5-08 TABLET BY ity of 00:00: MOUTH [place] 00 DAILY Medical IMMEDIATEL Branch Y BEFORE BEDTIME eszopiclone Yes TAKE 1 Univ ers 1 mg tablet 5-08 TABLET BY ity of 00:00: [facility] 00 DAILY Medical IMMEDIATEL Branch Y BEFORE BEDTIME eszopiclone Yes TAKE 1 Univ ers 1 mg tablet 5-08 TABLET BY ity of 00:00: MOUTH [place] 00 DAILY Medical IMMEDIATEL Branch Y BEFORE BEDTIME eszopiclone Yes TAKE 1 Univ ers 1 mg tablet 5-08 TABLET BY ity of 00:00: [facility] 00 DAILY Medical IMMEDIATEL Branch Y BEFORE BEDTIME eszopiclone Yes TAKE 1 Univ ers 1 mg tablet 5-08 TABLET BY ity of 00:00: [facility] DAILY Medical IMMEDIATEL Branch Y BEFORE BEDTIME eszopiclone Yes TAKE 1 Univ ers 1 mg tablet 5-08 TABLET BY ity of 00:00: [facility] 00 DAILY Medical IMMEDIATEL Branch Y BEFORE BEDTIME eszopiclone Yes TAKE 1 Univ ers 1 mg tablet 5-08 TABLET BY ity of 00:00: [facility] 00 DAILY Medical IMMEDIATEL Branch Y BEFORE [...] DAY Medical IN THE Branch MORNING buPROPion 2019-0 Yes TAKE 1 Univer s XL 300 mg 4-25 TABLET BY ity o f 24 hr 00:00: MOUTH [place] tablet 00 EVERY DAY Medical IN THE [place] MORNING buPROPion 0 Yes TAKE 1 Univer s XL 300 mg 4-25 TABLET BY ity o f 24 hr 00:00: MOUTH [place] tablet 00 EVERY DAY Medical IN THE [place] MORNING buPROPion 0 Yes TAKE 1 Univer s XL 300 mg 4-25 TABLET BY ity o f 24 hr 00:00: MOUTH [place] tablet 00 EVERY DAY Medical IN THE [place] MORNING buPROPion 0 Yes TAKE 1 Univer s XL 300 mg 4-25 TABLET BY ity o f 24 hr 00:00: MOUTH [place] tablet 00 EVERY DAY Medical IN THE [place] MORNING buPROPion 0 Yes TAKE 1 Univer s XL 300 mg 4-25 TABLET BY ity o f 24 hr 00:00: MOUTH [place] tablet 00 EVERY DAY Medical IN THE [place] MORNING escitalopra 2017-0 Yes 10mg Take 10 mg Univers m oxalate 5-25 by mouth ity of 10 mg 00:00: daily. [facility] benazepril 0 Yes 10mg Take 10 mg U nivers 10 mg 5-03 by mouth ity of tablet 00:00: daily. [place] [facility] benazepril 0 Yes 10mg Take 10 mg U nivers 10 mg 5-03 by mouth ity of tablet 00:00: daily. [place] [facility] benazepril 0 Yes 10mg Take 10 mg U nivers 10 mg 5-03 by mouth ity of tablet 00:00: daily. [place] [facility] benazepril 2017-0 Yes 10mg Take 10 mg U nivers 10 mg 5-03 by mouth ity of tablet 00:00: daily. [place] [facility] benazepril 0 Yes 10mg Take 10 mg U nivers 10 mg 5-03 by mouth ity of tablet 00:00: daily. [facility] benazepril 0 Yes 10mg Take 10 mg U nivers 10 mg 5-03 by mouth ity of tablet 00:00: daily. [place] [facility] benazepril 2017-0 Yes 10mg Take 10 mg U nivers 10 mg 5-03 by mouth ity of tablet 00:00: daily. [place] [facility] benazepril 2018-0 Yes 10mg Take 10 mg U nivers 10 mg 5-03 by mouth ity of tablet 00:00: daily. [place] [facility] amLODIPine 2018-0 Yes 10mg Take 10 mg U nivers 10 mg 4-02 by mouth ity of tablet 00:00: daily. [place] [facility] amLODIPine 2018-0 Yes 10mg Take 10 mg U nivers 10 mg 4-02 by mouth ity of tablet 00:00: daily. [place] [facility] amLODIPine 2018-0 Yes 10mg Take 10 mg U nivers 10 mg 4-02 by mouth ity of tablet 00:00: daily. [place] [facility] amLODIPine 2018-0 Yes 10mg Take 10 mg U nivers 10 mg 4-02 by mouth ity of tablet 00:00: daily. [place] [facility] amLODIPine 2018-0 Yes 10mg Take 10 mg U nivers 10 mg 4-02 by mouth ity of tablet 00:00: daily. [place] [facility] amLODIPine 2018-0 Yes 10mg Take 10 mg U nivers 10 mg 4-02 by mouth ity of tablet 00:00: daily. [place] [facility] amLODIPine 2018-0 Yes 10mg Take 10 mg U nivers 10 mg 4-02 by mouth ity of tablet 00:00: daily. [place] [facility] amLODIPine 2018-0 2020- No 10mg Take 10 mg Univers 10 mg 4-02 12-11 by mouth ity of tablet 00:00: 00:00 daily. [place] 00 [facility] Immunizations Ordered Filled Immunization Date Status Comments [facility] e Immunization Name Name TDAP 2018-03-30 Completed [facility] 00:00:00 [facility] Zoster Vaccine 2018-03-30 Completed [facility] [employer] 00:00:00 [facility] Zoster Vaccine 2017-11-24 Completed [facility] of [employer] 00:00:00 [facility] Vital Signs Vital Name Observation Time Observation Value Comments Source HEIGHT 2021-05-12 11:45:00 172.7 cm WEIGHT 2021-05-12 11:45:00 92.534 kg Systolic blood 2020-05-22 22:15:00 130 mm[Hg] Univer sity of pressure [facility] Diastolic blood 2020-05-22 22:15:00 74 mm[Hg] Unive rsity of pressure [facility] Heart rate 2020-05-22 22:15:00 84 /[facility] Body temperature 2020-05-22 22:15:00 37.11 [facility] 2020-05-22 22:15:00 20 /min [facility] Oxygen saturation in 2020-05-22 22:15:00 96 /min University of Arterial blood by [facility] Pulse oximetry Branch Body weight 2020-05-22 01:11:00 95.255 kg Universi ty [facility] BMI 2020-05-22 01:11:00 31.93 kg/m2 Universi ty [facility] Systolic blood 2020-05-22 22:15:00 130 mm[Hg] Univer sity of pressure [facility] Diastolic blood 2020-05-22 22:15:00 74 [facility]Hg[facility] 2020-05-22 22:15:00 84 /min Universi [facility] Body temperature 2020-05-22 22:15:00 37.11 [place] [facility] Respiratory rate 2020-05-22 22:15:00 20 /min [facility] Oxygen saturation in 2020-05-22 22:15:00 96 /min University of Arterial blood by [facility] Pulse oximetry Branch Body weight 2020-05-22 01:11:00 95.255 kg Universi [facility] BMI 2020-05-22 01:11:00 31.93 kg/m2 [facility] Procedures Procedure Date / Time Performing Clinician Source Performed MAGNESIUM 2020-05-22 18:34:00 Renée Mustafa [facility] VITAMIN B12, LEVEL 2020-05-22 [facility]EL 2020-05-22 18:34:00 Renée Mustafa [facility] ([id number]) [facility] ETHANOL 2020-05-22 18:34:00 Renée Mustafa [facility] CBC WITH DIFF 2020-05-22 18:34:00 Renée Mustafa [facility] PROTHROMBIN TIME / INR 2020-05-22 18:34:00 Renée Mustafa [facility] MAGNESIUM 2020-05-22 01:42:00 Girish Taylor [facility] TROPONIN I 2020-05-22 01:42:00 Girish Taylor [facility] COMP. METABOLIC PANEL 2020-05-22 01:42:00 Girish Taylor [facility] ([id number]) Medical Branch CBC WITH DIFF 2020-05-22 01:42:00 Girish Taylor [facility] COVID-19 (ID NOW RAPID 2020-05-22 01:42:00 Girish Taylor [facility] TESTING) [facility] COGNITIVE ASSESSMENT 2018-10-30 05:01:00 Doctor Unassigned, No U [facility] Name Medical Branch Encounters Start End Encounter Admission Attending Care Care Encounter Source Date/Time Date/Time Type Type Clinicians Facility Department ID 2021-07-07 Outpatient [place], [facility]ML[facility] 13[facility]:02 Shaun [id number] [facility] 2021-07-07 Outpatient [place], STLMLC [facility] 13:13:51 Shaun [id number] [facility] 2021-04-10 Emergency [facility] [id number] [facility] 10:37:17 [facility] 2021-04-09 Outpatient KIMBERLY MUELLER Surgery [id number] [facility] 08:07:25 DAVID 2021-07-21 2021-07-31 Inpatient Caroline TAN [facility] MED [id number] [facility] 07:58:00 12:37:00 BRINDA 2021-05-12 2021-05-12 Outpatient [facility] [id number] [facility] 12:05:02 23:59:00 2021-05-05 2021-05-05 ambulatory [facility] [id number] [facility] 2021-05-04 2021-05-04 ambulatory [facility]MLC [facility] [id number] [facility] 2021-04-13 2021-04-13 Outpatient ROS[facility]ERY [facility]GADO [facility] [id number] [facility] 00:00:00 00:00:00 LENCHO 2021-04-06 2021-04-06 Outpatient [facility]MLC [facility] [id number] [facility] 2021-04-06 2021-04-06 ambulatory [facility]LMLC [facility] [id number] [facility] 2021-03-16 2021-03-16 Outpatient [facility] [id number] [facility] 2021-03-16 2021-03-16 Outpatient [facility] [id number] [facility] 2021-03-10 2021-03-10 Outpatient [facility]MLC [facility] [id number] [facility] 2021-03-09 2021-03-09 Outpatient [facility]MLC [facility] [id number] [facility] 2021-01-29 2021-01-29 Outpatient [facility]MLC [facility] [id number] [facility] 2021-01-29 2021-01-29 Outpatient [facility] [id number] [facility] 2021-01-27 2021-01-27 Outpatient [facility]LMLC [facility] [id number] [facility] 2021-01-27 2021-01-27 Outpatient [facility]MLC [facility] [id number] [facility] 2021-01-22 2021-01-22 Outpatient [facility]LMLC [facility] [id number] [facility] 2021-01-212021-01-21 Outpatient [facility] [id number] [facility] 2020-11-26 2020-11-26 [facility] [id number] [facility] 2020-11-20 2020-11-20 [facility] [id number] [facility] 2020-05-21 2020-05-22 Emergency Girish Taylor S [facility] 1.2.840 .114 [id number] [facility] 19:04:00 18:10:00 Hector Lyman 350.1.13.10 it Renée [place] 4.2.7.2.686 [facility] [phone] [address] 2020-05-21 2020-05-22 Emergency Girish Taylor S [facility] 1.2.840 .114 [id number] 19:04:00 18:10:00 Hector Lyman 350.1.13.10 [place] [address] [place] [address] [phone] [facility] 2019-12-01 2019-12-01 [facility] 1.2.840.114 [id number] Univers 00:00:00 00:00:00 Kit Slade 350.1.13.10 ity [place] 4.2.7.2.686 [facility] Professio [phone] [address] 2019-12-01 2019-12-01 Portiafabián Beth [facility] 1.2.840.114 [id number] 00:00:00 00:00:00 Kit Slade 350.1.13.10 [place] 4.2.7.2.686 Professio [phone] [address] 2019-11-08 2019-11-08 Portiafabián Beth [facility] 1.2.840.114 [id number] Univers 00:00:00 00:00:00 Kit Slade 350.1.13.10 [place] 4[place]2.[place] [phone] [address] 2019-11-08 2019-11-08 [facility] 1.2.840.114 [id number] 00:00:00 00:00:00 Kit Slade 350.1.13.10 [place] 4.2.7.2.686 Professio [phone] [address] 2019-10-17 2019-10-17 [facility] 1.2.840.114 [id number] Univers 00:00:00 00:00:00 Kit Slade 350.1.13.10 [place] 4[place] [phone] [address] 2019-10-17 2019-10-17 [facility] 1.2.840.114 [id number] 00:00:00 00:00:00 Kit Slade 350.1.13.10 [place] 4.2.7.2.686 Professio [phone] [address] 2019-09-16 2019-09-16 [facility] 1.2.840.114 [id number] Univers 00:00:00 00:00:00 Kit Slade 350.1.13.10 [place] 4[place] [phone] [address] 2019-09-16 2019-09-16 [facility] 1.2.840.114 [id number] 00:00:00 00:00:00 Kit Slade 350.1.13.10 [place] 4.2.7.2.686 Professio [phone] [address] 2019-07-18 2019-07-18 Georgie [facility] 1.2.840.114 [id number] Univers 00:00:00 00:00:00 Kit Slade 350.1.13.10 [place] 4[place]2.[place] [phone] [address] 2019-07-18 2019-07-18 Refill Beth [facility] 1.2.840.114 [id number] 00:00:00 00:00:00 Kit Sachi Slade 350.1.13.10 [place] 4.2.7.2.686 Professio [phone] [address] 2019-07-17 2019-07-17 Telephone Beth [facility] 1.2.840.114 [id number] [facility] 00:00:00 00:00:00 Kit Narvaez [place] 350.1.13.10 it[place] 4[place]2.7.2.[place] [phone] [address] 2019-07-17 2019-07-17 Telephone Beth [facility] 1.2.840.114 [id number] 00:00:00 00:00:00 Kit Slade 350.1.13.10 [place] 4.2.7.2.686 Professio [phone] [address] 2019-05-27 2019-05-27 Outpatient R KIT CAMPOS [facility] [id number] [facility] 11:00:00 13:00:07 KIT CAMPOS [facility] 2018-10-30 2018-10-30 Orders Doctor CHYNA 1.2.840.114 [id number] [facility] 00:00:00 00:00:00 Only UnassignedJANNET 350.1.13.10 ity of [place] [employer] [employer] [facility] 4.2.7.2.686 Clarence as [phone] [address] 2018-10-30 2018-10-30 Orders Doctor CHYNA 1.2.840.114 [id number] 00:00:00 00:00:00 Only UnassignedJANNET 350.1.13.10 [place] [facility] 4.2.7.2.686 [id number] [id number] Results Test Description Test Time Test Comments Results Result Comments Source VITAMIN B12, LEVEL 2020-05-22 23:44:00 Test Item Value Reference Range Interpretation Comme nts VIT B12 (test code = 0995752677) 580 pg/mL 240-930 BHAVANI (test code = BHAVANI) Biotin has been reported to cause a positive bias, interpret results relative to patient's use of biotin. Lab Interpretation (test code = Normal 23343-1) [facility] 20:05:00 Test Item Value Reference Range Interpretation Comments ALCOHOL (test code = <10 mg/dL 8301213432) BHAVANI (test code = BHAVANI) <10 Cxowuqov92-122 Toxic>100 Depression of MATERIALS INSPECTOR>400 Fatalities Reported [facility] WITH [id number] 19:47:00 Test Item Value Reference Range Interpretation [...] (test code = 58.4 fL 38.5-51.6 H 02284-0) RDW-CV (test code = 16.2 % 12.1-15.4 H 788-0) PLT (test code = See_Comment L [Automated 777-3) message] The sy stem which generated this result transmitted reference range : 150 - 328 10*3/ ?L. The reference r tk was not used to interpret this result as normal/abnormal . MPV (test code = 9.5 fL 9.8-13 L 06523-7) IPF % (test code = 2.9 % 1.2-10.7 Platelet count 8702976257) measured by fluorescence method. NRBC/100 WBC (test See_Comment [Automat ed code = 3646969042) message] The system which generated this result transmitted reference range : 0.0 - 10.0 /100 WBCs. The refer ence range was not u sed to interpret th is result as normal/abnormal . NRBC x10^3 (test code <0.01 See_Comment [Auto mated = 3298577334) message] The s ystem which generated this result transmitted reference range : 10*3/?L. The reference range was not used to interpret this result as normal/abnormal . GRAN MAT (NEUT) % 65.7 % (test code = 770-8) IMM GRAN % (test code 0.50 % = 7903149140) LYMPH % (test code = 23.6 % 736-9) MONO % (test code = 9.5 % 5905-5) EOS % (test code = 0.2 % 713-8) BASO % (test code = 0.5 % 706-2) GRAN MAT x10^3(ANC) 2.64 10*3/uL 1.99-6.95 (test code = 2754771910) IMM GRAN x10^3 (test <0.03 0-0.06 code = 1478270007) LYMPH x10^3 (test code 0.95 10*3/uL 1.09-3.23 L = 731-0) MONO x10^3 (test code 0.38 10*3/uL 0.36-1.02 = 742-7) EOS x10^3 (test code = <0.03 0.06-0.53 L 711-2) BASO x10^3 (test code <0.03 0.01-0.09 = 704-7) Lab Interpretation Abnormal (test code = 84440-0) [facility] METABOLIC PANEL (03896)2020-05-22 19:39:00 Test Item Value Reference Range Interpretation Comments NA (test code = 134 mmol/L 135-145 L 5419443425) K (test code = 3.3 mmol/L 3.5-5 L 0005286798) CL (test code = 100 mmol/L 98-108 7859422627) CO2 TOTAL (test code = 28 mmol/L 23-31 9612486964) AGAP (test code = 2-16 9650954171) BUN (test code = 11 mg/dL 7-23 7567531034) GLUCOSE (test code = 124 mg/dL 70-110 H 2459748955) CREATININE (test code = 0.97 mg/dL 0.6-1.25 6204425589) TOTAL BILI (test code = 1.3 mg/dL 0.1-1.1 H 0547689753) CALCIUM (test code = 9.4 mg/dL 8.6-10.6 3023062949) T PROTEIN (test code = 7.0 g/dL 6.3-8.2 6088650210) ALBUMIN (test code = 4.0 g/dL 3.5-5 5162487273) ALK PHOS (test code = 85 U/L 34-122 9362595298) ALTv (test code = 30 U/L 5-50 1742-6) AST(SGOT) (test code = 68 U/L 13-40 H 7441133956) eGFR Calculation mL/min/1.73m2 (Non-) (test code = 6162446111) eGFR Calculation mL/min/1.73m2 () (test code = 0128213702) BHAVANI (test code = BHAVANI) Association of [...] tests). Lab Interpretation Abnormal (test code = 15376-1) [facility]2020-12-11 19:22:00 Test Item Value Reference Range Interpretation Comments MAGNESIUM (test code = 6129001362) 1.8 mg/dL 1.7-2.4 Lab Interpretation (test code = Normal 30532-4) [facility] RegionalPROTHROMBIN TIME / [id number] 19:09:00 Test Item Value Reference Range Interpretation [...] tions. Lab Interpretation (test Normal code = 73229-4) [facility] WITH [id number] 02:43:00 Test Item Value Reference Range Interpretation Comments WBC (test code = See_Comment [Automated 7990-2) message] The sy stem which generated this result transmitted reference range : 4.20 - 10.70 10*3/?L. The reference range was not used to interpret this result as normal/abnormal . RBC (test code = See_Comment L [Automated 289-8) message] The sy stem which generated this [...] (test code = 57.5 fL 38.5-51.6 H 36404-6) RDW-CV (test code = 15.9 % 12.1-15.4 H 788-0) PLT (test code = See_Comment L [Automated 777-3) message] The sy stem which generated this result transmitted reference range : 150 - 328 10*3/ ?L. The reference r tk was not used to interpret this result as normal/abnormal . MPV (test code = 9.3 fL 9.8-13 L 27134-9) IPF % (test code = 2.4 % 1.2-10.7 Platelet count 2854444232) measured by fluorescence method. NRBC/100 WBC (test See_Comment [Automat ed code = 8083391003) message] The system which generated this result transmitted reference range : 0.0 - 10.0 /100 WBCs. The refer ence range was not u sed to interpret th is result as normal/abnormal . NRBC x10^3 (test code See_Comment [Auto mated = 4903558609) message] The s ystem which generated this result transmitted reference range : 10*3/?L. The reference range was not used to interpret this result as normal/abnormal . GRAN MAT (NEUT) % 77.1 % (test code = 770-8) IMM GRAN % (test code 1.20 % = 9886400879) LYMPH % (test code = 12.8 % 736-9) MONO % (test code = 8.4 % 5905-5) EOS % (test code = 0.0 % 713-8) BASO % (test code = 0.5 % 706-2) GRAN MAT x10^3(ANC) 3.33 10*3/uL 1.99-6.95 (test code = 5068747602) IMM GRAN x10^3 (test 0.05 10*3/uL 0-0.06 code = 9371416527) LYMPH x10^3 (test code 0.55 10*3/uL 1.09-3.23 L = 731-0) MONO x10^3 (test code 0.36 10*3/uL 0.36-1.02 = 742-7) EOS x10^3 (test code = <0.03 0.06-0.53 L 711-2) BASO x10^3 (test code <0.03 0.01-0.09 = 704-7) PLT ESTIMATE (test Decreased Normal A code = 9317-9) Lab Interpretation Abnormal (test code = 42592-1) [facility] RegionalTROPONARCISO [id number] 02:21:00 Test Item Value Reference Range Interpretation Comments TROPONIN I (test 0.018 ng/mL See_Comment [Automated code = 5650344567) message] The system which generated this result [...] ? Lab Interpretation Normal (test code = 03984-9) [facility] RegionalCOVID-[facility] (ID NOW RAPID TESTING)2020-05-22 02:17:00 Test Item Value Reference Range Interpretation Comments SARS-CoV-2 Rapid ID NOW Not Detected Not Detected (test code = 42079-3) BHAVANI (test code = BHAVANI) ID NOW COVID-19 Assay is an isothermal nucleic acid amplification test intended for the qualitative detection of nucleic acid from SARS-CoV-2 viral RNA in nasopharyngeal (DOCK LOADER) specimens. It is used under Emergency Use [...] indicated. Lab Interpretation Normal (test code = 94286-3) [facility] METABOLIC PANEL (87771)2020-05-22 02:09:00 Test Item Value Reference Range Interpretation Comments NA (test code = 135 mmol/L 135-145 7954602274) K (test code = 3.6 mmol/L 3.5-5 3849058476) CL (test code = 102 mmol/L 98-108 4295331564) CO2 TOTAL (test code = 21 mmol/L 23-31 L 5810616282) AGAP (test code = 2-16 4947599724) BUN (test code = 14 mg/dL 7-23 2150810437) GLUCOSE (test code = 184 mg/dL 70-110 H 1312491808) CREATININE (test code = 0.79 mg/dL 0.6-1.25 9170196047) TOTAL BILI (test code = 1.8 mg/dL 0.1-1.1 H 6118262282) CALCIUM (test code = 9.0 mg/dL 8.6-10.6 6488442455) T PROTEIN (test code = 7.5 g/dL 6.3-8.2 8056374601) ALBUMIN (test code = 4.3 g/dL 3.5-5 2646968572) ALK PHOS (test code = 84 U/L 34-122 4835835207) ALTv (test code = 34 U/L 5-50 1742-6) AST(SGOT) (test code = 81 U/L 13-40 H 3180813440) eGFR Calculation mL/min/1.73m2 (Non-) (test code = 2183003945) eGFR Calculation mL/min/1.73m2 () (test code = 2299208066) BHAVANI (test code = BHAVANI) Association of [...] tests). Lab Interpretation Abnormal (test code = 97258-8) [facility] Test Item Value Reference Range Interpretation Comments MAGNESIUM (test code = 4185334602) 1.6 mg/dL 1.7-2.4 L Lab Interpretation (test code = Abnormal 34673-7) [facility] [id number] 18:37:00Surgical Pathology Report Case: [id number] Authorizing Provider: Lencho Delgado, Collected: 04/09/2019 1054 OrderingLocation: [facility] Received: 04/09/2019 1223 PERIOPERATIVE SERVICES Pathologist: Jose Alfredo Dozier MD Specimen: Aortic Valve, AORTIC VALVE LEAFLET HEART, AORTIC VALVE,VALVULECTOMY:LEAFLETS WITH NODULAR CALCIFIC ATHEROSCLEROTIC THICKENING Signing Pathologist Direct Phone Line: [phone] signed by Jose Alfredo Dozier MD on 04/15/2019 at 6:37 [id number]; [id number]-xmhsjkxqk aortic valve stenosisAortic valve leafletReceived fresh with patient's demographic information and surgical accession number are fragments of calcified valvular leaflet, 3.5 x 2 x up to 1 cm in greatest dimension. Chief Writer section submitted in A1 for decalcification. HL/plPe rformedCBC (HEMOGRAM ONLY)2019-04-15 07:03:00 Test Item Value Reference [...] WBC 0-0 (BEAKER) (test code = 413) [id number] 04:42:00 Test Item Value Reference Range Interpretation Comments MAGNESIUM (BEAKER) (test code = 1.8 mg/dL 1.6-2.6 627) BASIC METABOLIC [id number] 04:42:00 Test Item Value Reference Range Interpretation [...] PATIEN TS. CBC W/PLT COUNT & AUTO [id number] 04:28:00 Test Item Value Reference Range Interpretation [...] = 2801) CBC W/PLT COUNT & AUTO [id number] 11:55:00 Test Item Value Reference Range Interpretation [...] H PERCENT (BEAKER) (test code = 2801) [id number] 08:43:00 Test Item Value Reference Range Interpretation Comments MAGNESIUM (BEAKER) 1.9 mg/dL 1.6-2.6 Specimen slightly (test code = 627) hemolyzed BASIC METABOLIC [id number] 08:43:00 Test Item Value Reference Range Interpretation [...] S NOT APPLICABLE FOR DIALYSIS PATIEN TS. [id number] 03:36:00 Test Item Value Reference Range Interpretation Comments MAGNESIUM (BEAKER) (test code = 1.8 mg/dL 1.6-2.6 627) BASIC METABOLIC [id number] 03:36:00 Test Item Value Reference Range Interpretation [...] PATIEN TS. CBC W/PLT COUNT & AUTO [id number] 03:10:00 Test Item Value Reference Range Interpretation [...] 0-1 PERCENT (BEAKER) (test code = 2801) [id number] 06:05:00 Test Item Value Reference Range Interpretation Comments MAGNESIUM (BEAKER) (test code = 1.9 mg/dL 1.6-2.6 627) BASIC METABOLIC [id number] 06:05:00 Test Item Value Reference Range Interpretation [...] PATIEN TS. CBC W/PLT COUNT & AUTO [id number] 05:42:00 Test Item Value Reference Range Interpretation [...] PERCENT (BEAKER) (test code = 2801) POCT-GLUCOSE [id number] 18:07:00 Test Item Value Reference Range Interpretation Comments POC-GLUCOSE METER 97 mg/dL 70-110 : TESTED A T [facility] 6720 (BEAKER) (test code = [facility], 1538) 63498: Heel Seater/Techni criss ID = [id number] for LEMO Shazia IRAIS POCT-GLUCOSE [id number] 13:23:00 Test Item Value Reference Range Interpretation Comments POC-GLUCOSE METER 92 mg/dL 70-110 : TESTED A T [facility] 6720 (BEAKER) (test code = [facility], 1538) 69905: Heel Seater/Techni criss ID = [id number] for IRAIS ESQUIVEL TROPONIN [id number] 12:02:00 Test Item Value Reference Range Interpretation Comments TROPONIN I (МАРИЯ) (test code = 0.66 ng/mL 0.00-0.03 397) Troponin I (TnI) levels [...] acidosis, acute neurological disease, and persistent tachyarrhythmia.POCT-GLUCOSE [id number] 08:03:00 Test Item Value Reference Range Interpretation Comments POC-GLUCOSE METER 99 mg/dL 70-110 : TESTED A T [facility] 6720 (МАРИЯ) (test code = [place] [place], 1538) 72858: Heel Seater/Techni criss ID = [id number] for IRAIS ESQUIVEL RAD, CHEST, 1 VIEW, NON [id number] 07:02:00Reason for exam:->chest tubeShould this be performed at the bedside?->YesFINAL REPORT CLINICAL INDICATION: Support lines. Comparison: 04/10/2019 The c ardiomediastinal contours are stable. Central pulmonary vascular prominence and bilateral parenchymal and pleural opacities are similar to previous. There is no pneumothorax. A right IJ CVC has been removed. Signed: Ralph [facility] Verified Date/Time: 04/11/2019 07:02:55 TROPONIN [id number] 03:58:00 Test Item Value Reference Range Interpretation Comments TROPONIN I (МАРИЯ) (test code = 0.89 ng/mL 0.00-0.03 397) [...] failure, acidosis, acute neurological disease, and persistent tachyarrhythmia.[id number] 03:34:00 Test Item Value Reference Range Interpretation Comments PHOSPHORUS (BEAKER) (test code = 2.4 mg/dL 2.3-4.7 604) [id number] 03:34:00 Test Item Value Reference Range Interpretation Comments MAGNESIUM (BEAKER) (test code = 2.0 mg/dL 1.6-2.6 627) BASIC METABOLIC [id number] 03:34:00 Test Item Value Reference Range Interpretation [...] 0-0 (BEAKER) (test code = 413) POCT-GLUCOSE [id number] 22:10:00 Test Item Value Reference Range Interpretation Comments POC-GLUCOSE METER 139 mg/dL 70-110 H : TESTED A T [facility] 6720 ([employer]) (test code = [facility], 153) 18731: Heel Seater/Techni criss ID = [id number] for WH LYUBOV FARRIS POCT-GLUCOSE [id number] 21:27:00 Test Item Value Reference Range Interpretation Comments POC-GLUCOSE METER 126 mg/dL 70-110 H : TESTED A T [facility] 6720 ([employer]) (test code = [facility], 153) 10718: Heel Seater/Techni criss ID = [id number] for Cr uz, Natty POCT-GLUCOSE [id number] 12:13:00 Test Item Value Reference Range Interpretation Comments POC-GLUCOSE METER 190 mg/dL 70-110 H : TESTED A T [facility] 6720 ([employer]) (test code = [facility], 153) 92703: Heel Seater/Techni criss ID = [id number] for OM MIRELA, ALICEA RAD, CHEST, 1 VIEW, NON [id number] 04:52:00while patient is intubated or has chest [...] Stable surgical changes.Additional findings: None. Signed: [facility]ah [facility] Verified Date/Time: 04/10/2019 04:52:01 [facility] ONLY)2019-04-10 03:54:00 Test Item Value Reference [...] /100 WBC 0-0 (test code = 413) [id number] 03:40:00 Test Item Value Reference Range Interpretation Comments PHOSPHORUS (BEAKER) (test code = 4.4 mg/dL 2.3-4.7 604) [id number] 03:40:00 Test Item Value Reference Range Interpretation Comments MAGNESIUM (BEAKER) (test code = 1.9 mg/dL 1.6-2.6 627) BASIC METABOLIC [id number] 03:40:00 Test Item Value Reference Range Interpretation [...] NOT APPLICABLE FOR DIALYSIS PATIEN TS. POCT-GLUCOSE [id number] 23:09:00 Test Item Value Reference Range Interpretation Comments POC-GLUCOSE METER 124 mg/dL 70-110 H : [facility] (BEAKER) (test code = [facility], 153) 53772: Heel Seater/Techni criss ID = [id number] for CLAUDIA ERICKSON POCT-GLUCOSE [id number] 18:45:00 Test Item Value Reference Range Interpretation Comments POC-GLUCOSE METER 145 mg/dL 70-110 H : TESTED A T [facility] 6720 (BEAKER) (test code = [facility], 1538) 76301: Heel Seater/Techni criss ID = [id number] for Brown Santos POCT-GLUCOSE [id number] 17:16:00 Test Item Value Reference Range Interpretation Comments POC-GLUCOSE METER 154 mg/dL 70-110 H : Will Rep eat Test: (BEAKER) (test code = TESTED AT [facility] 6720 1538) [facility], [address]: Heel Seater/Techni criss ID = [id number] for BE LL, IVAN BLOOD GAS, [id number] 16:11:00 Test Item Value Reference Range Interpretation [...] (BEAKER) (test code = 1819) 40.0 % [id number] 14:13:00 Test Item Value Reference Range Interpretation Comments MAGNESIUM (BEAKER) (test code = 1.6 mg/dL 1.6-2.6 627) RAD, CHEST, 1 VIEW, NON [id number] 13:42:00Reason for exam:->Status post CV Surgery post [...] are intact and well aligned. Signed: Bora Espinoeport Verified Date/Time: 2018 13:42:07 Reading Location: [facility] Reading Room CBC W/PLT COUNT & AUTO [id number] 13:21:00 Test Item Value Reference Range Interpretation [...] = 3438) Received comment: User comments: Slide comments:[id number] 13:20:00 Test Item Value Reference Range Interpretation Comments FIBRINOGEN LEVEL (BEAKER) (test 222 mg/dl 225-434 L code = 658) [id number] 13:20:00 Test Item Value Reference Range Interpretation Comments PARTIAL THROMBOPLASTIN TIME 34.1 seconds 22.5-36.0 (BEAKER) (test code = 760) PROTHROMBIN TIME/[id number] 13:19:00 Test Item Value Reference Range Interpretation [...] INR is2.5-3.5 for patients wiht mechanical heart valves.[id number] 13:17:00 Test Item Value Reference Range Interpretation Comments PHOSPHORUS (BEAKER) (test code = 3.5 mg/dL 2.3-4.7 604) BASIC METABOLIC [id number] 13:17:00 Test Item Value Reference Range Interpretation [...] APPLICABLE FOR DIALYSIS PATIEN TS. LACTIC ACID, [id number] 13:13:00 Test Item Value Reference Range Interpretation Comments LACTATE BLOOD ARTERIAL (2) 0.9 mmol/L 0.5-2.2 (BEAKER) (test code = 2874) CALCIUM, [id number] 13:03:00 Test Item Value Reference Range Interpretation Comments CALCIUM IONIZED (BEAKER) (test 1.19 mmol/L 1.12-1.27 code = 698) PH, BLOOD (BEAKER) (test code = 7.36 1810) BLOOD GAS, [id number] 13:02:00 Test Item Value Reference Range Interpretation [...] code = 1819) 60.0 % OXYGEN SATURATION, [id number] 12:56:00 Test Item Value Reference Range Interpretation [...] 59.5 MM 55.0-65.0 (test code = 1413) [id number] 12:03:00 Test Item Value Reference Range Interpretation Comments FIBRINOGEN LEVEL (BEAKER) (test 224 mg/dl 225-434 L code = 658) [id number] 12:03:00 Test Item Value Reference Range Interpretation Comments PARTIAL THROMBOPLASTIN TIME 37.1 seconds 22.5-36.0 H (BEAKER) (test code = 760) PROTHROMBIN [id number] 12:02:00 Test Item Value Reference Range Interpretation [...] is2.5-3.5 for patients wiht mechanical heart valves.PLATELET [id number] 11:51:00 Test Item Value Reference Range Interpretation Comments PLATELET COUNT (BEAKER) (test 116 K/CU MM 150-450 L code = 756) POTASSIUM-STAT [id number] 11:47:00 Test Item Value Reference Range Interpretation Comments POTASSIUM (BEAKER) (test code = 4.8 meq/L 3.6-5.5 379) BLOOD GAS, [id number] 11:47:00 Test Item Value Reference Range Interpretation [...] (test code = 1819) 97.0 % CALCIUM, [id number] 11:47:00 Test Item Value Reference Range Interpretation Comments CALCIUM IONIZED (BEAKER) (test 1.08 mmol/L 1.12-1.27 L code = 698) PH, BLOOD (BEAKER) (test code = 7.30 1810) GLUCOSE-STAT [id number] 11:47:00 Test Item Value Reference Range Interpretation Comments GLUCOSE RANDOM (BEAKER) (test code 175 mg/dL 70-110 H = 652) SODIUM NA-STAT [id number] 11:47:00 Test Item Value Reference Range Interpretation Comments SODIUM (BEAKER) (test code = 381) 133 meq/L 135-148 L HGB/HCT (H&H) - STAT [id number] 11:47:00 Test Item Value Reference Range Interpretation [...] L (test code = 1413) BLOOD GAS, [id number] 11:17:00 Test Item Value Reference Range Interpretation [...] (test code = 1819) 91.0 % GLUCOSE-STAT [id number] 11:17:00 Test Item Value Reference Range Interpretation Comments GLUCOSE RANDOM (BEAKER) (test code 149 mg/dL 70-110 H = 652) HGB/HCT (H&H) - STAT [id number] 11:17:00 Test Item Value Reference Range Interpretation Comments HEMOGLOBIN (BEAKER) (test code = 8.5 g/dL 13.0-16.8 L 410) HEMATOCRIT (BEAKER) (test code = 25.0 % 40.0-50.0 L 411) SODIUM NA-STAT [id number] 11:17:00 Test Item Value Reference Range Interpretation Comments SODIUM (BEAKER) (test code = 381) 133 meq/L 135-148 L POTASSIUM-STAT [id number] 11:16:00 Test Item Value Reference Range Interpretation Comments POTASSIUM (BEAKER) (test code = 4.9 meq/L 3.6-5.5 379) [id number] 11:10:00 Test Item Value Reference Range Interpretation Comments ACTIVATED CLOTTING TIME 125 sec Refe rence Range: (BEAKER) (test code = 74-137 seconds, 441) Baseline/TESTED AT [place] [address] [id number] 11:10:00 Test Item Value Reference Range Interpretation Comments ACTIVATED CLOTTING TIME 549 sec Refe rence Range: (BEAKER) (test code = 74-137 seconds, 441) Baseline/TESTED AT [address] [address] [id number] 11:10:00 Test Item Value Reference Range Interpretation Comments ACTIVATED CLOTTING TIME 675 sec Refe rence Range: (BEAKER) (test code = 74-137 seconds, 441) Baseline/TESTED AT [address] [address] [id number] 11:10:00 Test Item Value Reference Range Interpretation Comments ACTIVATED CLOTTING TIME 885 sec Refe rence Range: (BEAKER) (test code = 74-137 seconds, 441) Baseline/TESTED AT [address] [address] [id number] 11:10:00 Test Item Value Reference Range Interpretation Comments ACTIVATED CLOTTING TIME 643 sec Refe rence Range: (BEAKER) (test code = 74-137 seconds, 441) Baseline/TESTED AT [address] [address] [id number] 10:55:00 Test Item Value Reference Range Interpretation Comments FIBRINOGEN LEVEL (BEAKER) (test 228 mg/dl 225-434 code = 658) [id number] 10:55:00 Test Item Value Reference Range Interpretation Comments PARTIAL THROMBOPLASTIN TIME 41.1 seconds 22.5-36.0 H (BEAKER) (test code = 760) PROTHROMBIN [id number] 10:54:00 Test Item Value Reference Range Interpretation [...] is2.5-3.5 for patients wiht mechanical heart valves.PLATELET [id number] 10:44:00 Test Item Value Reference Range Interpretation Comments PLATELET COUNT (BEAKER) (test code 83 K/CU MM 150-450 L = 756) BLOOD GAS, [id number] 10:44:00 Test Item Value Reference Range Interpretation [...] code = 1819) 92.0 % SODIUM NA-STAT [id number] 10:44:00 Test Item Value Reference Range Interpretation Comments SODIUM (BEAKER) (test code = 381) 130 meq/L 135-148 L GLUCOSE-STAT [id number] 10:44:00 Test Item Value Reference Range Interpretation Comments GLUCOSE RANDOM (BEAKER) (test code 154 mg/dL 70-110 H = 652) HGB/HCT (H&H) - STAT [id number] 10:44:00 Test Item Value Reference Range Interpretation Comments HEMOGLOBIN (BEAKER) (test code = 9.1 g/dL 13.0-16.8 L 410) HEMATOCRIT (BEAKER) (test code = 27.0 % 40.0-50.0 L 411) CALCIUM, [id number] 10:44:00 Test Item Value Reference Range Interpretation Comments CALCIUM IONIZED (BEAKER) (test 1.11 mmol/L 1.12-1.27 L code = 698) PH, BLOOD (BEAKER) (test code = 7.40 1810) POTASSIUM-STAT [id number] 10:40:00 Test Item Value Reference Range Interpretation Comments POTASSIUM (BEAKER) (test code = 5.0 meq/L 3.6-5.5 379) BLOOD GAS, [id number] 09:57:00 Test Item Value Reference Range Interpretation [...] (test code = 1819) 80.0 % GLUCOSE-STAT [id number] 09:57:00 Test Item Value Reference Range Interpretation Comments GLUCOSE RANDOM (BEAKER) (test code 168 mg/dL 70-110 H = 652) SODIUM NA-STAT [id number] 09:57:00 Test Item Value Reference Range Interpretation Comments SODIUM (BEAKER) (test code = 381) 131 meq/L 135-148 L POTASSIUM-STAT [id number] 09:57:00 Test Item Value Reference Range Interpretation Comments POTASSIUM (BEAKER) (test code = 5.9 meq/L 3.6-5.5 H 379) HGB/HCT (H&H) - STAT [id number] 09:57:00 Test Item Value Reference Range Interpretation Comments HEMOGLOBIN (BEAKER) (test code = 8.5 g/dL 13.0-16.8 L 410) HEMATOCRIT (BEAKER) (test code = 25.0 % 40.0-50.0 L 411) BLOOD GAS, [id number] 09:31:00 Test Item Value Reference Range Interpretation [...] code = 1819) 65.0 % SODIUM NA-STAT [id number] 09:31:00 Test Item Value Reference Range Interpretation Comments SODIUM (BEAKER) (test code = 381) 131 meq/L 135-148 L GLUCOSE-STAT [id number] 09:31:00 Test Item Value Reference Range Interpretation Comments GLUCOSE RANDOM (BEAKER) (test code 175 mg/dL 70-110 H = 652) HGB/HCT (H&H) - STAT [id number] 09:31:00 Test Item Value Reference Range Interpretation Comments HEMOGLOBIN (BEAKER) (test code = 7.7 g/dL 13.0-16.8 L 410) HEMATOCRIT (BEAKER) (test code = 23.0 % 40.0-50.0 L 411) POTASSIUM-STAT [id number] 09:29:00 Test Item Value Reference Range Interpretation Comments POTASSIUM (BEAKER) (test code = 5.5 meq/L 3.6-5.5 379) POTASSIUM-STAT [id number] 09:07:00 Test Item Value Reference Range Interpretation Comments POTASSIUM (BEAKER) 6.9 meq/L 3.6-5.5 HH Sample NO T Hemolyzed. (test code = 379) BLOOD GAS, [id number] 09:05:00 Test Item Value Reference Range Interpretation [...] (test code = 1819) 70.0 % GLUCOSE-STAT [id number] 09:05:00 Test Item Value Reference Range Interpretation Comments GLUCOSE RANDOM (BEAKER) (test code 216 mg/dL 70-110 H = 652) HGB/HCT (H&H) - STAT [id number] 09:05:00 Test Item Value Reference Range Interpretation Comments HEMOGLOBIN (BEAKER) (test code = 8.0 g/dL 13.0-16.8 L 410) HEMATOCRIT (BEAKER) (test code = 24.0 % 40.0-50.0 L 411) SODIUM NA-STAT [id number] 09:05:00 Test Item Value Reference Range Interpretation Comments SODIUM (BEAKER) (test code = 381) 123 meq/L 135-148 L GLUCOSE-STAT [id number] 08:03:00 Test Item Value Reference Range Interpretation Comments GLUCOSE RANDOM (BEAKER) (test code 107 mg/dL 70-110 = 652) POTASSIUM-STAT [id number] 08:03:00 Test Item Value Reference Range Interpretation Comments POTASSIUM (BEAKER) (test code = 4.2 meq/L 3.6-5.5 379) BLOOD GAS, [id number] 08:03:00 Test Item Value Reference Range Interpretation [...] code = 1819) 100.0 % SODIUM NA-STAT [id number] 08:03:00 Test Item Value Reference Range Interpretation Comments SODIUM (BEAKER) (test code = 381) 130 meq/L 135-148 L HGB/HCT (H&H) - STAT [id number] 08:03:00 Test Item Value Reference Range Interpretation Comments HEMOGLOBIN (BEAKER) (test code = 12.3 g/dL 13.0-16.8 L 410) HEMATOCRIT (BEAKER) (test code = 36.0 % 40.0-50.0 L 411) CALCIUM, [id number] 08:02:00 Test Item Value Reference Range Interpretation Comments CALCIUM IONIZED (BEAKER) (test 1.23 mmol/L 1.12-1.27 code = 698) PH, BLOOD (BEAKER) (test code = 7.45 1810) POCT-GLUCOSE [id number] 06:05:00 Test Item Value Reference Range Interpretation Comments POC-GLUCOSE METER 96 mg/dL 70-110 : TESTED A T [facility] 6720 (BEAKER) (test code = [place], 1538) [id number]: Heel Seater/Techni criss ID = [id number] for JORD AN, LACRYSTAL RAD, CHEST, 2 [id number] 13:23:00In departmentReason for exam:->Aoritc valve replacement Pre op screenFINAL REPORT CLINICAL HISTORY: Aortic valve replacement Pre op screen TECHNIQUE: 2 views of the chest COMPARISON: None IMPRESSION: There are no focal infiltrates or effusions. The cardiomediastinal silhouette is within normal limits for size. The osseous structures appear intact. Signed: Jaiden Galvanort Verified Date/Time: 04/04/2019 13:23:46 Reading Location: [facility] Reading Room HEMOGLOBIN [id number] 13:07:00 Test Item Value Reference Range Interpretation Comments HEMOGLOBIN A1C (BEAKER) (test code = 4.7 % 4.3-6.1 368) [id number] 12:23:00 Test Item Value Reference Range Interpretation Comments MAGNESIUM (BEAKER) (test code = 2.0 mg/dL 1.6-2.6 627) COMPREHENSIVE METABOLIC [id number] 12:23:00 Test Item Value Reference Range Interpretation [...] NOT APPLICABLE FOR DIALYSIS PATIEN TS. LIPID [id number] 12:23:00 Test Item Value Reference Range Interpretation [...] 100-129 Borderline 130-159 High 160-189 Very High [id number] 12:02:00 Test Item Value Reference Range Interpretation Comments PARTIAL THROMBOPLASTIN TIME 34.5 seconds 22.5-36.0 (BEAKER) (test code = 760) PROTHROMBIN [id number] 12:01:00 Test Item Value Reference Range Interpretation [...] mechanical heart valves.CBC W/PLT COUNT & AUTO [id number] 11:52:00 Test Item Value Reference Range Interpretation [...] 0-1 H PERCENT (BEAKER) (test code = 0901)"
--- NOTE | 2021-08-16 07:16 | RAD REPORT ---
EXAM DESCRIPTION: US - Abdomen Exam Limited - 08/16/2021 7:06 am CLINICAL HISTORY: ABD PAIN COMPARISON: Stone Protocol dated 11/16/2020 FINDINGS: No gallstones are identified. There is a moderate volume of sludge within the lumen of the gallbladder, collecting near the neck. There is no wall thickening or pericholecystic fluid. No common duct stone or biliary tree dilatation identified. IMPRESSION: Moderate amount of sludge gallbladder. No stones are identified. No sonographic findings of acute cholecystitis. No biliary tree abnormality.
[2021-08-16] MEDS ORDERED: MORPHINE 4 MG/ML SYR ONE (07:17)
[2021-08-16] MEDS ORDERED: ONDANSETRON 4 MG/2 ML VIAL ONE (07:17)
[2021-08-16 07:34] LABS: Absolute Lymphocytes (CBC) 2.2 K/uL (0.7-4.9); Hematocrit 34.5 % (39.6-49.0); Lymphocytes % 36.8 % (15.3-44.8); RBC Red Blood Cell Count 3.33 M/uL (4.33-5.43)
[2021-08-16 07:55] LABS: Albumin 3.4 g/dL (3.4-5.0); Bilirubin Direct 1.1 mg/dL (0-0.2); Bilirubin Total 1.6 mg/dL (0.2-1.0); Potassium 4.9 mmol/L (3.5-5.1); Protein, Total 7.9 g/dL (6.4-8.2); Troponin High Sensitivity 13.2 pg/mL (<58.9)
--- NOTE | 2021-08-16 08:48 | RAD REPORT ---
EXAM DESCRIPTION: CT - Abdomen Pelvis W Contrast - 08/16/2021 8:17 am CLINICAL HISTORY: ABD PAIN COMPARISON: Abdomen Exam Limited dated 08/16/2021 TECHNIQUE: Biphasic, helical CT imaging of the abdomen and pelvis was performed following 100 ml non -ionic IV contrast. No oral contrast administered. All CT scans are performed using dose optimization technique as appropriate and may include automated exposure control or mA/KV adjustment according to patient size. FINDINGS: No suspicious findings in the lung bases. The liver, spleen, and pancreas show no suspicious findings. Gallbladder is distended but not dilated . Earlier ultrasound study showed moderate amount of sludge but no stones identifiable. Enhancement o f the gallbladder wall is identifiable. The wall appears slightly thickened and edematous on CT imagi ng though the wall was not abnormal at sonography. No abnormal biliary tree dilatation. Duct stones c an be occult. No duodenal or pancreatic mass or obstructive process seen. Symmetric renal function is seen with no hydronephrosis or suspicious renal mass. No pyelonephritis o r acute parenchymal process. No bladder abnormalities. No adrenal abnormalities. No gastric dilatation seen. Several small hyperdensities within the gastric lumen believed be ingeste d material rather than enhancement abnormalities or areas of GI bleeding. Note GI bleed history was n oted. Hernandez of the gastric greater curvature are prominent but not clearly masslike. No small bowel a bnormalities identified. A 3 centimeter area of focal density in the cecum (51 Hounsfield units) is p robably dense stool rather than mass. This is near the ileocecal valve. No appendicitis. No free air, free fluid or inflammatory stranding. No mass or bulky lymphadenopathy. Moderate-sized bilateral fat filled inguinal hernias are present. No suspicious bony findings. IMPRESSION: Gallbladder is distended but not dilated. Hernandez appear slightly thickened with enhanceme nt on CT imaging. Wall thickening was not identified on the ultrasound of the same date. Cholecystitis or acalculous cholecystitis cannot be excluded and needs correlation with clinical pres entation. No abnormal biliary tree dilatation. Duodenum and pancreas show no acute findings. Focal masslike density in the cecum is most likely stool rather than a true mass. This can be re-eval uated with a limited CT study in a few days to see if this clears with normal bowel peristalsis. Slight thickening of the wall along the greater curvature of the stomach. Areas of hyperdensity in th e stomach could be ingested material or enlarged vasculature along the mucosal surface. No GI bleed h istory was detailed. This can be correlated with clinical findings of gastritis.
--- NOTE | 2021-08-16 09:19 | EDPHYS ---
Physician Documentation [facility] Name: Gavin Polo Jr Age: 66 yrs Sex: Male : 1955 Arrival Date: 08/16/2021 Time: 06:52 Bed 16 Private MD: ED Physician Wily Santos HPI: 08/16 07:08 This 66 yrs old Male presents to ER via EMS with complaints of abdominal pain. kb 07:08 The patient presents with abdominal pain in the epigastric area. Onset: The kb symptoms/episode began/occurred this morning, at 04:00. The symptoms do not radiate. Associated signs and symptoms: none. The symptoms are described as constant. Modifying factors: The symptoms are alleviated by nothing, the symptoms are aggravated by nothing. Severity of pain: At its worst the pain was moderate in the emergency department the pain is unchanged. The patient has not experienced similar symptoms in the past. The patient has not recently seen a physician. Pt reports epigastric pain that started at 0400. Denies any other symptoms. Historical: - Allergies: 07:03 No Known Allergies; ll3 - Immunization history:: Client reports receiving the 2nd dose of the Covid vaccine. - Social history:: Smoking status: Patient denies any tobacco usage or history of. ROS: 07:08 Constitutional: Negative for fever, chills, and weight loss. kb 07:08 Abdomen/GI: Positive for abdominal pain, Negative for nausea, vomiting, and diarrhea. 07:08 All other systems are negative. Exam: 07:08 Constitutional: This is a well developed, well nourished patient who is awake, alert, kb and in no acute distress. Head/Face: Normocephalic, atraumatic. ENT: Moist Mucous membranes Cardiovascular: Regular rate and rhythm with a normal S1 and S2. No gallops, murmurs, or rubs. No pulse deficits. Respiratory: Respirations even and unlabored. No increased work of breathing. Talking in full sentences Skin: Warm, dry with normal turgor. Normal color. MS/ Extremity: Pulses equal, no cyanosis. Neurovascular intact. Full, normal range of motion. Neuro: Awake and alert, GCS 15, oriented to person, place, time, and situation. Moves all extremities. Normal gait. Psych: Awake, alert, with orientation to person, place and time. Behavior, mood, and affect are within normal limits. 07:08 Abdomen/GI: Inspection: abdomen appears normal, Bowel sounds: normal, Palpation: soft, in all quadrants, mild abdominal tenderness, in the left lower quadrant, moderate abdominal tenderness, in the right upper quadrant and left upper quadrant. 07:30 ECG was reviewed by the Attending Physician. Vital Signs: 06:58 BP 140 / 76; Pulse 81; Resp 19; Temp 97.5(O); Pulse Ox 100% on R/A; Weight 86.18 kg; ll3 Height 5 ft. 8 in. (172.72 cm); Pain 7/10; 07:37 BP 156 / 74; Pulse 77; Resp 18; Pulse Ox 100% on R/A; ic1 09:29 BP 121 / 74; Pulse 79; Resp 18; Pulse Ox 95% on R/A; ic1 06:58 Body Mass Index 28.89 (86.18 kg, 172.72 cm) ll3 MDM: 06:52 Patient medically screened. 07:09 Data reviewed: vital signs, nurses notes. Data interpreted: Pulse oximetry: on room air kb is 100 %. Interpretation: normal. 08:54 Physician consultation: Vinnie Scherer MD was contacted at 08:54, regarding consult, patient's condition, and will see patient in ED, shortly. 09:06 Physician consultation: Vinnie Scherer MD in the emergency department to see patient at 09:06. 09:16 Counseling: I had a detailed discussion with the patient and/or guardian regarding: the historical points, exam findings, and any diagnostic results supporting the discharge/admit diagnosis, lab results, radiology results, the need for outpatient follow up, a general surgeon, to return to the emergency department if symptoms worsen or persist or if there are any questions or concerns that arise at home. ED course: Dr Scherer recommends outpatient follow up because pt is now pain free. . 08/16 06:53 Order name: Basic Metabolic Panel; Complete Time: 08:01 kb 08/16 06:53 Order name: CBC with Diff; Complete Time: 07:41 kb 08/16 06:53 Order name: Hepatic Function; Complete Time: 08:01 kb 08/16 06:53 Order name: Lipase; Complete Time: 08:01 kb 08/16 06:53 Order name: Troponin HS; Complete Time: 08:01 kb 08/16 06:53 Order name: US Abdomen Limited; Complete Time: 07:18 kb 08/16 06:53 Order name: IV Saline Lock; Complete Time: 07:36 kb 08/16 06:53 Order name: Labs collected and sent; Complete Time: 07:36 kb 08/16 06:53 Order name: EKG; Complete Time: 06:54 kb 08/16 06:53 Order name: EKG - Nurse/Tech; Complete Time: 07:36 kb 08/16 07:04 Order name: CT Abd/Pelvis - IV Contrast Only; Complete Time: 08:51 kb EC:30 Rate is 65 beats/min. Rhythm is regular. QRS [place] is Normal. NH interval is normal at kb 164 msec. QRS interval is normal at 84 msec. QT interval is normal at 382 msec. Administered Medications: 07:36 Drug: morphine 4 mg Route: IVP; Site: left antecubital; ic1 07:36 Drug: Zofran (Ondansetron) 4 mg Route: IVP; Site: left antecubital; ic1 Disposition Summary: 08/16/21 09:17 Discharge Ordered Location: Home kb Condition: Stable kb Diagnosis - Upper abdominal pain, unspecified kb - Abnormal results of liver function studies kb Followup: kb - With: Vinnie Scherer MD - When: 2 - 3 days - Reason: Recheck today's complaints, Continuance of care, Re-evaluation by your physician Followup: kb - With: Emergency Department - When: As needed - Reason: Worsening of condition Discharge Instructions: - Discharge Summary Sheet kb - Biliary Colic, Adult kb - Abdominal Pain, Adult, Fxyc-gn-Pabn kb Forms: - Medication Reconciliation Form kb - Thank You Letter kb - Antibiotic Education kb - Prescription Opioid Use kb Prescriptions: - Zofran 4 mg Oral Tablet - take 1 tablet by ORAL route every 6 hours As needed; 20 tablet; Refills: 0, kb Product Selection Permitted - Diclofenac Sodium 75 mg Oral tablet,delayed release (DR/EC) - take 1 tablet by ORAL route 2 times per day As needed; 30 tablet; Refills: 0, kb Product Selection Permitted Addendum: 08/18/2021 22:49 Co-signature as Attending Physician, Wily hernandez h7 Signatures: Dispatcher [employer] EDAnnabel Morse CCU NURSE-C CCU NURSE-Ckb Wily Santos MD MD [id number] Johanna Houston RN RN ll3 Keysha Elias RN RN ic1
--- NOTE | 2021-08-16 09:19 | ER ---
Nurse's Notes [facility] Name: Gavin Polo Jr Age: 66 yrs Sex: Male : 1955 Arrival Date: 08/16/2021 Time: 06:52 Bed 16 Private MD: Diagnosis: Upper abdominal pain, unspecified;Abnormal results of liver function studies Presentation: 08/16 06:58 Chief complaint: Patient states: C/O abdominal pain in left and right upper quadrant ll3 7/10 since 0400, denies vomiting or diarrhea, c/o nausea for the past couple of days. Coronavirus screen: Vaccine status: Patient reports receiving the 2nd dose of the covid vaccine. At this time, the client does not indicate any symptoms associated with coronavirus-19. Ebola Screen: No symptoms or risks identified at this time. Initial Sepsis Screen: Does the patient meet any 2 criteria? No. Patient's initial sepsis screen is negative. Does the patient have a suspected source of infection? No. Patient's initial sepsis screen is negative. Risk Assessment: Do you want to hurt yourself or someone else? Patient reports no desire to harm self or others. Onset of symptoms was August 16, 2021 at 04:00. 06:58 Method Of Arrival: EMS ll3 06:58 Acuity: NICK 3 ll3 Triage Assessment: 07:03 General: Appears uncomfortable, Behavior is cooperative, restless. Pain: Complains of ll3 pain in right upper quadrant and left upper quadrant Pain currently is 7 out of 10 on a pain scale. Pain began 3 hours ago. Is continuous, Noted to be grimacing, moaning, restless. Neuro: Level of Consciousness is awake, alert, obeys commands, Oriented to person, place, time, situation. Cardiovascular: Patient's skin is warm and dry. Respiratory: Respiratory effort is even, unlabored, Respiratory pattern is regular, symmetrical. GI: Abdomen is round non-distended, Bowel sounds present X 4 quads. Abd is soft X 4 quads Abd is non tender in right lower quadrant and left lower quadrant Abdomen is tender to palpation in right upper quadrant and left upper quadrant. Derm: Skin is pink, warm \T\ dry. Historical: - Allergies: 07:03 No Known Allergies; ll3 - Immunization history:: Client reports receiving the 2nd dose of the Covid vaccine. - Social history:: Smoking status: Patient denies any tobacco usage or history of. Screenin:05 Abuse screen: Denies threats or abuse. Nutritional screening: No deficits noted. ll3 Tuberculosis screening: No symptoms or risk factors identified. 07:37 Fall Risk None identified. ic1 Assessment: 07:37 General: Appears in no apparent distress. uncomfortable, Behavior is calm, cooperative. ic1 Pain: Complains of pain in abdomen. Neuro: Level of Consciousness is awake, alert, obeys commands, Oriented to person, place, time, situation. Cardiovascular: Denies chest pain, nausea, shortness of breath. Respiratory: Denies cough, shortness of breath. GI: Reports lower abdominal pain, Patient currently denies diarrhea, vomiting. : No deficits noted. EENT: No deficits noted. Derm: No deficits noted. Musculoskeletal: No deficits noted. Vital Signs: 06:58 BP 140 / 76; Pulse 81; Resp 19; Temp 97.5(O); Pulse Ox 100% on R/A; Weight 86.18 kg; ll3 Height 5 ft. 8 in. (172.72 cm); Pain 7/10; 07:37 BP 156 / 74; Pulse 77; Resp 18; Pulse Ox 100% on R/A; ic1 09:29 BP 121 / 74; Pulse 79; Resp 18; Pulse Ox 95% on R/A; ic1 06:58 Body Mass Index 28.89 (86.18 kg, 172.72 cm) ll3 ED Course: 06:52 Patient arrived in ED. mw2 06:52 Annabel Montes De Oca F[facility]-C [facility]. kb 06:52 Wily Santos MD is Attending Physician. kb 07:03 Triage completed. ll3 07:03 Arm band placed on Patient placed in an exam room, on a stretcher, on pulse oximetry. ll3 07:05 Patient has correct armband on for positive identification. Placed in gown. Bed in low ll3 position. Call light in reach. Side rails up X 1. 07:06 US Abdomen Limited In Process Unspecified. EDMS 07:36 Keysha Elias, MAURISIO is Primary Nurse. ic1 07:36 No provider procedures requiring assistance completed. Inserted saline lock: 20 gauge ic1 in left antecubital area, using aseptic technique. Blood collected. 07:37 Pulse ox on. NIBP on. Door closed. Noise minimized. Lights dimmed. Warm blanket given. ic1 08:16 CT Abd/Pelvis - IV Contrast Only In Process Unspecified. EDMS 09:17 Vinnie Scherer MD is Referral Physician. kb 09:48 IV discontinued, intact, bleeding controlled, No redness/swelling at site. Pressure ic1 dressing applied. Administered Medications: 07:36 Drug: morphine 4 mg Route: IVP; Site: left antecubital; ic1 07:36 Drug: Zofran (Ondansetron) 4 mg Route: IVP; Site: left antecubital; ic1 Outcome: 09:17 Discharge ordered by . kb 09:48 Discharged to home via wheelchair, with significant other. ic1 09:48 Condition: stable 09:48 Discharge instructions given to patient, Instructed on discharge instructions, follow up and referral plans. Demonstrated understanding of instructions, follow-up care, medications, Prescriptions given X 2. 09:50 Patient left the ED. ic1 Signatures: Dispatcher [employer] EDMS Annabel Montes De Oca, SEA SHELL GATHERER-C SEA SHELL GATHERER-Samuel Rg mw2 Johanna Houston RN RN ll3 Keysha Elias RN RN ic1
[2021-08-16 10:29] VITALS: TEMP 97.5
[2021-08-16 10:32] VITALS: BP 121/74; O2SAT 95
--- NOTE | 2021-08-16 13:42 | CON ---
Date of Consultation: 08/16/2021 Brief History Of Present Illness: The patient is a 66-year-old male, known to me, who has a past [facility] history of alcohol abuse, who presents with epigastric abdominal pain beginning at 4 a.m. He at e a lot of last night. He states he has had 1 episode prior this last week, which was described as s harp, epigastric abdominal pain, which then settled down to a dull, ache after several hours. He has not had any other similar attacks other than the 1 precipitating this 1 last week and the current ep isode which he is now pain free from. He had no nausea or vomiting. He does have history of elevate d liver function test and has not had this worked up formally and is due to see Dr. Sumit Madrid, he patologist in the [facility] for his worsening liver function tests. Past Medical History: Significant for hypertension, depression, anxiety, GERD, essential tremor, atr ial valve stenosis, seizure disorder. Past Surgical History: Includes a hernia repair, left knee surgery. Social History: He has a positive alcohol abuse history and had last hospitalized in July for al cohol abuse and states he has not drank since July. Denies recreational drug use. Allergies: NO KNOWN DRUG ALLERGIES. Review of Systems: Ten-point review of systems other than HPI, denies. Physical Examination: General: At the time of my examination; he is awake, alert, oriented. Psychiatric: Appropriate, conversive. HEENT: Normocephalic. His sclerae are anicteric. His mucous membranes are moist. Oropharynx is cl ear. Neck: Supple without JVD. Chest: Normal expansion and excursion. Cardiovascular: Regular rate and rhythm. Pulmonary: Clear to auscultation bilaterally. Abdomen: Soft, nontender, nondistended. No rebound. No guarding. No focal peritonitis. Negative Dumont sign. Extremities: No clubbing, cyanosis, or edema. Skin: Warm and dry. Laboratory Data: Reveals a white blood cell count of 6.0, hemoglobin of 7.6, hematocrit of 34.5, trent telet count was 152. Neutrophils are normal at 48%. Sodium 139, potassium 4.9, chloride 108, carbon dioxide 24, BUN 9, creatinine 1.13, glucose is 115. Total bilirubin 1.6, direct component 1.1, AST 123, ALT 79, alkaline phosphatase is 353. Troponin 13.2. Lipase 358. He had imaging performed, i ch included a CT of the abdomen and pelvis as well as an ultrasound of the gallbladder. CT was offic ially read as gallbladder is distended, but not dilated, godoy appeared slightly thickened with enhan cement on CT imaging. Wall thickening was not identified on the ultrasound on the same date. Cholec ystitis or acalculous cholecystitis cannot be excluded and needs correlation with clinical presentati on. No biliary tree abnormality or dilatation. Duodenum, pancreas showed no acute findings. Focal masslike density in cecum, most likely stool rather than true mass, can be re-evaluated with a CT calderon dy. Slight thickening of the greater curvature of the stomach. Area of hyperdensity in the stomach could be ingested material or enlarged vasculature along mucosal surface. No GI bleed history with d etail. He had an ultrasound, which was officially read as moderate amount of sludge in the gallbladd er. No stones identified. No sonographic findings of acute cholecystitis. No biliary tree abnormal ity. There is no wall thickening or pericholecystic fluid. Assessment And Plan: 1.This is a 66-year-old male with a history of alcohol abuse, who presents with epigastric abdominal pain which is now resolved and history of elevated liver transaminases and bilirubin, possibly relat ed to an underlying hepatitis/cirrhosis. The patient is due to be worked up as an outpatient regardi ng this with Dr. Sumit Madrid, petroleum plant operator. 2.I do not see any signs or symptoms of acute calculous or acalculous cholecystitis at this time. 3.Recommend HIDA scan for the patient to see if there are any functional disorders of the gallbladde r, which might be contributing to his overall clinical picture. 4.Recommend GI consultation for upper endoscopy to see if the patient possibly has a gastrointestina l issue contributing to his clinical picture as well as his CT imaging shows some concerning findings on the greater curvature of the stomach. 5.I have explained risks, benefits, and alternatives of the above stated plan. The patient agrees t o proceed as indicated. Thank you for this interesting consult. ANALILIA/PAN Voice ID: [id number] Report ID: [id number]
--- NOTE | 2021-08-17 12:52 | EKG ---
Test Date: 2021-08-16 Test Time: 07:23:58 Inventory Representative: IC MEASUREMENT RESULTS: Intervals: Rate: 65 CT: 164 QRSD: 84 QT: 382 QTc: 397 [place]: P: 63 CT: 164 QRS: 26 T: 47 INTERPRETIVE STATEMENTS: Normal sinus rhythm Normal ECG Compared to ECG 07/02/2021 08:16:49 No significant changes Electronically Signed On 08-17-21 12:49:58 CALENDERER by Hilario Salazar
== END 2021-08-16 09:50 | disposition home or self-care (01) ==
LOC: ER 06:48
DX: R94.5 Abnormal results of liver function studies (principal)
CPT/HCPCS: 93005; 85025; 80048; 36415; 80076; 84484; 83690; 74177; 76705; 96375; 96374; 99284; Q9967; J2405

== ENCOUNTER 2021-12-02 04:27 | Emergency (ER) | payer OTHER ==
--- OUTSIDE RECORDS SUMMARY | 2021-12-02 04:34 | XMS REPORT | Continuity of Care Document ---
:1955 Author Organization [facility] t Address [address] [place] [address] Care Team Providers Name Role Phone KIMANI RUTHERFORD JR Primary Care Physician Unavailable Caroline Rutherford Attending Clinician Unavailable KATHERINE MURPHY Attending Clinician Unavailable KRISTI Attending Clinician Unavailable DEDE TAN Attending Clinician [...] Type Policy Number Effective Date Expiration Date S patsyce MEDICARE PART A [id number] 2020 2024 AND B 00:00:00 00:00:00 [facility] [id number] [id number] 00:00:00 [employer] HMO POS [id number] QPOS 00:00:00 Problems Condition Condition Condition Status Onset Resolution Last Treating Co mments Source Name Details Category Date Date Treatment Clinician Date Obesity Obesity Disease Active 2019-06 Univers (BMI (BMI 2-11 ity of 30-39.9) 30-39.9) 00:00: [place] 00 Medical Branch Hypertensi Hypertensi Disease Active 2019-06 U nivers on on 2-11 ity of 00:00: [place] [facility] Alcohol Alcohol Disease Active 2019-06 Univers withdrawal withdrawal 2-10 it y of 00:00: [place] 00 Medical Branch Aortic Aortic Disease Active 2018-06 Univers stenosis stenosis 0-29 ity of 00:00: [place] [facility] 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) carcinoma) 00:00: [place] , face , face 00 [facility] Branch Allergies, Adverse Reactions, Alerts Allergy Allergy Status Severity Reaction(s) Onset Inactive Treating Comm ents Source Name Type Date Date Clinician POLLEN Allergy Active 2018-06 [facility] EXTRACTS 0-24 00:00: 00 NO KNOWN Drug Active Univers ALLERGIE Class ity of S [facility] Social History Social Habit Start Date Stop Date Quantity Comments Source Exposure to Not sure [place] of SARS-CoV-2 (event) [facility] Sex Assigned At Universit y of [facility] Tobacco use and 2020-05-22 2020-05-22 Former user Universi ty of exposure 00:00:00 00:00:00 [place] [facility] History SDSC 2020-05-22 2020-05-22 5 University o f Alcohol Frequency 00:00:00 00:00:00 [facility] edical Branch History SDSC 2020-05-22 2020-05-22 5 University o f Alcohol Std Drinks 00:00:00 00:00:00 [place] [facility] History SDSC 2020-05-22 2020-05-22 5 University o f Alcohol Binge 00:00:00 00:00:00 [place] Medic al Branch History SDSC Social 2020-05-22 2020-05-22 2 Unive rsity of Connections Phone 00:00:00 00:00:00 [facility] edical Branch History SDSC Social 2020-05-22 2020-05-22 98 Unive rsity of Connections Get 00:00:00 00:00:00 [place] Med ical Together Branch History SDOH Social 2020-05-22 2020-05-22 98 Unive rsity of Connections [employer] 00:00:00 00:00:00 [place] [facility] History SDOH Social 2020-05-22 2020-05-22 [...] Medical Branch History SDOH 2020-05-22 2020-05-22 2 [place] o f Transport Med 00:00:00 00:00:00 [place] Medic al Branch History SDOH 2020-05-22 2020-05-22 2 [place] o f Transport Non-Med 00:00:00 00:00:00 [place] M edical Branch Alcohol Comment 2020-05-22 2020-05-22 drinks one Universit y of 00:00:00 00:00:00 gallon in two [place] Medic al days of whiskey Branch Alcohol intake 2020-05-22 2020-05-22 Current drinker Unive rsity of 00:00:00 00:00:00 of alcohol [place] Medical (finding) Branch Smoking Status Start Date Stop Date Source Never smoker [facility] xa Medical Branch Medications Ordered Filled Start Stop Current Ordering Indication Dosage Frequency Signature Comments Components Source Medication Medication Date Date Medication? Clinician (SIG) Name Name mirtazapine 2019-06 Yes 15mg 15 mg, Univ ers (REMERON) 2-12 Oral, QHS, ity of tablet 15 03:00: First dose [place] mg 00 on Mon [facility] 05/22/20 Branch at 2100, Until Discontinu ed, Routine atorvastati 2019-06 Yes 20mg 20 mg, Univ ers n (LIPITOR) 2-12 Oral, QHS, it y of tablet 20 03:00: First dose [place] mg 00 on Mon [facility] 05/22/20 Branch at 2100, Until Discontinu ed, Routine acetylcyst/ 2019-06 Yes .314mg Take 0.314 Univers [id number] 2-12 mg by ity of evomefol 00:11: mouth. [place] (CEREFOLIN 31 Medical NAC ORAL) Branch aspirin 2019-06 Yes 81mg Take 81 mg Univ ers (ASPIR-LOW) 2-12 by mouth ity of 81 mg EC 00:11: daily. [place] tablet Medical Branch mirtazapine 2019-06 Yes 15mg Take 15 mg Univers 15 mg 2-12 by mouth ity of tablet 00:11: at [place] [address] bedtime. Medical Branch metoprolol 2019-06 Yes 12.5mg Take 12.5 Univers tartrate 25 2-12 mg by ity of mg tablet 00:11: mouth 2 [place] [address] (two) Medical times Branch daily. atorvastati 2019-06 Yes 20mg Take 20 mg Univers n 20 mg 2-12 by mouth ity of tablet 00:11: at [place] 31 bedtime. Medical Branch thiamine 2019-06 Yes [id number] 100mg Take 1 U nivers 100 mg -12 tablet by ity of tablet 00:00: mouth [place] 00 daily. Medical Branch foLIC acid 2019-06- No [id number] 1mg Take 1 Univers 1 mg tablet 07-24 tablet by it y of 00:00: 05:59 mouth [place] 00 :00 daily for Medical 30 days. Branch magnesium 2019-06- No [id number] 800mg Take 800 Univers oxide 420 07-24 mg by ity of mg Tab 00:00: 05:59 mouth [place] 00 :00 daily for Medical 30 days. Branch multivitami 2019-06- No [id number] 1{tbl} Take 1 Univers n tablet 07-24 [...] [place] mg 00 :00 oxazepam Medical (SERAX) [place] capsule 15 mg Signed Summary: 15 mg, [...] at 2000, Routine [Order 3 End] omeprazole 2019- Yes 40mg 40 mg, Unive rs (PRILOSEC) 2-11 Oral, ity of capsule 40 15:00: DAILY, [place] mg 00 First dose Medical on Mon Branch 05/22/20 at 0900, Until Discontinu ed escitalopra 2019- Yes 20mg 20 mg, Univ ers m [...] 0900, Until Discontinu ed, Routine foLIC acid 2019- Yes 1mg 1 mg, Univer s (FOLATE) [...] First dose Me dical 800 mg on Fri Branch 05/22/20 at 0900, Until Discontinu ed, Routine topiramate 2019-06 Yes 25mg 25 mg, Unive rs (TOPAMAX) 2- Oral, BID, ity of tablet 25 14:00: First dose [place] mg 00 on Fri Medical 05/22/20 Branch at 0800, Until Discontinu ed, Routine
membership director approving Restricted medication : HECTOR LYMAN metoprolol 2019-06 Yes 12.5mg 12.5 mg, U nivers tartrate -11 Oral, BID, ity o f (LOPRESSOR) 14:00: First dose [place] tablet 12.5 00 on Fri Medica l mg 05/22/20 Branch at 0800, Until Discontinu ed, Routine pantoprazol 2019-06 2020- No 40mg Take 40 mg Univers e 40 mg EC 07-23 by mouth ity of tablet 12:57: 00:00 daily. [place] 39 :00 [facility] Branch traZODone 2019-06 Yes 50mg 50 mg, Univer s (DESYREL) 07-23 Oral, ity of tablet 50 12:57: QHSPRN, [place] mg 25 Starting [facility] 05/22/20 at 0657, Until Discontinu ed, Routine, Insomnia oxazepam 2019-06 Yes 15mg 15 mg, Univers (SERAX) 07-23 Oral, ity of capsule 15 12:45: Q4HPRN, [place] mg 54 Starting Medical [facility] 05/22/20 at 0645, Until Discontinu ed, Routine, Only while awake for DBP equal to or greater than 100, HR equal to or greater than 100. traMADoL 2019-06 2020- No 50mg 50 mg, Univer s (ULTRAM) 07-23 Oral, ity of tablet 50 08:52: 08:51 Q8HPRN, [place] mg [place] :28 Starting [facility] Branch 05/22/20 at 0252, Until 05/24/20 at 0251, Routine, Pain (scale 4-6) acetaminoph 2019-06 Yes 650mg 650 mg, Un jose eduardo en 07-23 Oral, ity of (TYLENOL) 08:52: Q6HPRN, [place] tablet 650 25 Starting Medic al mg Fri Branch 05/22/20 at 0252, Until Discontinu ed, Routine, Pain (scale 1-3) LORazepam 2019-06 No 2mg 2 mg, Slow U nivers (ATIVAN) 07-23 IV Push, ity of injection 2 08:15: 07:08 ONCE, 1 [place] mg 00 :00 dose, [facility] Medical 05/22/20 Branch at 0215, STAT chlordiazeP 2019-06- No 50mg 50 mg, Uni vers OXIDE 07-23 Oral, ity of (LIBRIUM) 03:45: 02:47 ONCE, 1 [place] capsule 50 00 :00 dose, [place] [facility] mg 05/21/20 Branch at 2145, [...] D5W 0.45% NaCl (1/2NS) IV Solution LORazepam 2019-06 No 1mg 1 mg, Slow U nivers (ATIVAN) 07-23 IV Push, ity of injection 1 02:45: 01:46 ONCE, 1 [place] mg 00 :00 dose, [facility] Branch Medical 05/21/20 Branch at 2045, STAT oxazepam 15 2019-06 2020- No [id number] Take 1 Univers mg capsule 07-23 capsule by it y of 00:00: 05:59 mouth [place] 00 :00 every 6 Medical (six) Branch hours for 2 days, THEN 1 capsule 3 (three) times daily for 1 day, THEN 1 capsule 2 (two) times daily for 1 day. TOPIRAMATE 2019-0 Yes [id number] TAKE 1 Univers 25 mg 5-29 TABLET BY ity of tablet 00:00: MOUTH [place] 00 TWICE A Medical DAY Branch TOPIRAMATE 2019-0 Yes [id number] TAKE 1 Univers 25 mg 5-29 TABLET BY ity of tablet 00:00: MOUTH 00 TWICE A Medical DAY Branch TOPIRAMATE 2020-0 Yes [id number] TAKE 1 Univers 25 mg 5-29 TABLET BY ity of tablet 00:00: MOUTH 00 TWICE A Medical DAY Branch TOPIRAMATE 2020-0 Yes [id number] TAKE 1 Univers 25 mg 5-07 TABLET BY ity of tablet 00:00: MOUTH 00 TWICE A Medical DAY Branch TOPIRAMATE 2020-0 2020- No [id number] TAKE 1 Univers 25 mg 5-07 05-29 TABLET BY ity of tablet 00:00: 00:00 MOUTH [place] 00 :00 TWICE A Medical DAY Branch TOPIRAMATE 2020-0 Yes [id number] TAKE 1 Univers 25 mg 4-06 TABLET BY ity of tablet 00:00: [facility] 00 TWICE A Medical DAY Branch TOPIRAMATE 2020-0 2020- No [id number] TAKE 1 Univers 25 mg 4-06 05-07 TABLET BY ity of tablet 00:00: 00:00 MOUTH [place] 00 :00 TWICE A Medical DAY Branch topiramate 2020-0 Yes [id number] 50mg Take 1 Univers 50 mg 2-05 tablet by ity of tablet 00:00: mouth (two) Medical times Branch daily. topiramate 2020-0 Yes [id number] 50mg Take 1 Univers 50 mg 2-05 tablet by ity of tablet 00:00: [facility] (two) Medical times Branch daily. topiramate 2020-0 Yes [id number] 50mg Take 1 Univers 50 mg 2-05 tablet by ity of tablet 00:00: [address] (two) Medical times Branch daily. topiramate 2020-0 Yes [id number] 50mg Take 1 Univers 50 mg 2-05 tablet by ity of tablet 00:00: mouth [place] (two) Medical times Branch daily. topiramate 2020-0 Yes [id number] 50mg Take 1 Univers 50 mg 2-05 tablet by ity of tablet 00:00: mouth [address] [place] [address] (two) Medical times Branch daily. topiramate 2020-0 Yes [id number] 50mg Take 1 Univers 50 mg 2-05 tablet by ity of tablet 00:00: mouth [address] [place] [address] (two) Medical times Branch daily. topiramate 2020-0 Yes [id number] 50mg Take 1 Univers 50 mg 2-05 tablet by ity of tablet 00:00: mouth 2 [place] 00 (two) Medical times Branch daily. topiramate 2018-06 2020- No [id number] 25mg Take 1 Univers 25 mg 2-16 02-05 tablet by ity of tablet 00:00: 00:00 mouth 2 [place] 00 :00 (two) Medical times Branch daily. pantoprazol 2018-06 Yes 40mg Take 40 mg Univers e 40 mg EC 0-28 by mouth ity o f tablet 17:19: daily. [address] acetylcyst/ 2018-06 Yes .314mg Take 0.314 Univers szejxsK74/l 0-28 mg by ity of evomefol 17:19: mouth. [address] ORAL) Branch pantoprazol 2018-06 Yes 40mg Take 40 mg Univers e 40 mg EC 0-28 by mouth ity o f tablet 17:19: daily. [address] acetylcyst/ 2018-06 Yes .314mg Take 0.314 Univers lflmxaY61/l 0-28 mg by ity of evomefol 17:19: mouth. [place] ([address] ORAL) Branch pantoprazol 2018-06 Yes 40mg Take 40 mg Univers e 40 mg EC 0-28 by mouth ity o f tablet 17:19: daily. [address] acetylcyst/ 2018-06 Yes .314mg Take 0.314 Univers prowvkG95/l 0-28 mg by ity of evomefol 17:19: mouth. [address] ORAL) Branch pantoprazol 2018-06 Yes 40mg Take 40 mg Univers e 40 mg EC 0-28 by mouth ity o f tablet 17:19: daily. [address] acetylcyst/ 2018-06 Yes .314mg Take 0.314 Univers buzvrsC67/l 0-28 mg by ity of evomefol 17:19: mouth. [address] ORAL) Branch pantoprazol 2018-06 Yes 40mg Take 40 mg Univers e 40 mg EC 0-28 by mouth ity o f tablet 17:19: daily. [address] acetylcyst/ 2018-06 Yes .314mg Take 0.314 Univers ghwercK53/l 0-28 mg by ity of evomefol 17:19: mouth. [place] ([place] 54 Medical NAC ORAL) Branch pantoprazol 2018-06 Yes 40mg Take 40 mg Univers e 40 mg EC 0-28 by mouth ity o f tablet 17:19: daily. [address] acetylcyst/ 2018-06 Yes .314mg Take 0.314 Univers iugvzcA74/l 0-28 mg by ity of evomefol 17:19: mouth. [address] ORAL) Branch omeprazole 2018-06 Yes 40mg Take 40 mg U nivers 40 mg 0-14 by mouth ity of capsule 00:00: daily. [address] omeprazole 2018-06 Yes 40mg Take 40 mg U nivers 40 mg 0-14 by mouth ity of capsule 00:00: daily. [address] omeprazole 2018-06 Yes 40mg Take 40 mg U nivers 40 mg 0-14 by mouth ity of capsule 00:00: daily. [address] omeprazole 2018-06 Yes 40mg Take 40 mg U nivers 40 mg 0-14 by mouth ity of capsule 00:00: daily. [address] omeprazole 2018-06 Yes 40mg Take 40 mg U nivers 40 mg 0-14 by mouth ity of capsule 00:00: daily. [address] omeprazole 2018-06 Yes 40mg Take 40 mg U nivers 40 mg 0-14 by mouth ity of capsule 00:00: daily. [address] omeprazole 2018-06 Yes 40mg Take 40 mg U nivers 40 mg 0-14 by mouth ity of capsule 00:00: daily. [address] traZODone Yes TAKE 1/2 Univ ers 50 mg 9-23 TO 1 ity of tablet 00:00: TABLET BY [address] EVERY DAY [place] AT BEDTIME FOR SLEEP traZODone Yes TAKE 1/2 Univ ers 50 mg 9-23 TO 1 ity of tablet 00:00: TABLET BY [address] EVERY DAY [place] AT BEDTIME FOR SLEEP traZODone Yes TAKE 1/2 Univ ers 50 mg 9-23 TO 1 ity of tablet 00:00: TABLET BY [address] EVERY DAY [place] AT BEDTIME FOR SLEEP traZODone Yes TAKE 1/2 Univ ers 50 mg 9-23 TO 1 ity of tablet 00:00: TABLET BY [place] MOUTH Medical EVERY DAY Branch AT BEDTIME FOR SLEEP traZODone Yes TAKE 1/2 Univ ers 50 mg 9-23 TO 1 ity of tablet 00:00: TABLET BY [place] MOUTH Medical EVERY DAY Branch AT BEDTIME FOR SLEEP traZODone Yes TAKE 1/2 Univ ers 50 mg 9-23 TO 1 ity of tablet 00:00: TABLET BY [place] MOUTH Medical EVERY DAY Branch AT BEDTIME FOR SLEEP traZODone Yes TAKE 1/2 Univ ers 50 mg 9-23 TO 1 ity of tablet 00:00: TABLET BY [place] MOUTH Medical EVERY DAY Branch AT BEDTIME FOR SLEEP escitalopra Yes 20mg Take 20 mg Univers m oxalate 9-21 by mouth. ity o f 20 mg 00:00: [place] tablet [facility] Branch escitalopra Yes 20mg Take 20 mg Univers m oxalate 9-21 by mouth. ity o f 20 mg 00:00: [place] tablet Medical Branch escitalopra Yes 20mg Take 20 mg Univers m oxalate 9-21 by mouth. ity o f 20 mg 00:00: [place] tablet Medical Branch escitalopra Yes 20mg Take 20 mg Univers m oxalate 9-21 by mouth. ity o f 20 mg 00:00: [place] tablet [facility] escitalopra 0 Yes 20mg Take 20 mg Univers m oxalate 9-21 by mouth. ity o f 20 mg 00:00: [place] tablet [facility] escitalopra Yes 20mg Take 20 mg Univers m oxalate 9-21 by mouth. ity o f 20 mg 00:00: [place] tablet Medical Branch escitalopra Yes 20mg Take 20 mg Univers m oxalate 9-21 by mouth. ity o f 20 mg 00:00: [place] tablet [facility] Branch TOPIRAMATE 2019-0 2020- No [id number] TAKE 1 Univers 25 mg 6-12 02-05 TABLET BY ity of tablet 00:00: 00:00 MOUTH [place] 00 :00 TWICE A Medical DAY Branch vortioxetin 2018-0 Yes Take 1 Univ ers e 5-21 TAB-CAP/M2 ity of (TRINTELLIX 15:01: by mouth [place] ) 20 mg Tab 33 daily. Medica l Branch pantoprazol Yes 40mg Take 40 mg Univers e 40 mg EC 5-21 by mouth ity o f tablet 15:01: daily. [place] [address] Medical Branch mirtazapine 2019 Yes 15mg Take 15 mg Univers 15 mg 5-21 by mouth ity of tablet 15:01: at [place] [address] bedtime. Medical Branch eszopiclone Yes TAKE 1 Univ ers 1 mg tablet 5-08 TABLET BY ity of 00:00: MOUTH [place] 00 DAILY Medical IMMEDIATEL Branch Y BEFORE [...] 5-08 TABLET BY ity of 00:00: MOUTH [place] 00 DAILY Medical IMMEDIATEL Branch Y BEFORE [...] Medical IMMEDIATEL Branch Y BEFORE BEDTIME buPROPion Yes TAKE 1 Univer s XL [...] tablet 00 EVERY DAY Medical IN THE [place] MORNING buPROPion Yes TAKE 1 Univer s XL 300 mg 4-25 TABLET BY ity o f 24 hr 00:00: MOUTH [place] tablet 00 EVERY DAY Medical IN THE [place] MORNING buPROPion Yes TAKE 1 Univer s XL 300 mg 4-25 TABLET BY ity o f 24 hr 00:00: MOUTH [place] tablet 00 EVERY DAY Medical IN THE [place] MORNING buPROPion Yes TAKE 1 Univer s XL 300 mg 4-25 TABLET BY ity o f 24 hr 00:00: MOUTH [place] tablet 00 EVERY DAY Medical IN THE [place] MORNING buPROPion Yes TAKE 1 Univer s XL 300 mg 4-25 TABLET BY ity o f 24 hr 00:00: MOUTH [place] tablet 00 EVERY DAY Medical IN THE [place] MORNING buPROPion Yes TAKE 1 Univer s XL 300 mg 4-25 TABLET BY ity o f 24 hr 00:00: MOUTH [place] tablet 00 EVERY DAY Medical IN THE [place] MORNING escitalopra 0 Yes 10mg Take 10 mg Univers m oxalate 5-25 by mouth ity of 10 mg 00:00: daily. [facility] benazepril 0 Yes 10mg Take 10 mg U nivers 10 mg 5-03 by mouth ity of tablet 00:00: daily. [facility] benazepril 0 Yes 10mg Take 10 mg U nivers 10 mg 5-03 by mouth ity of tablet 00:00: daily. [facility] benazepril 0 Yes 10mg Take 10 mg U nivers 10 mg 5-03 by mouth ity of tablet 00:00: daily. [facility] benazepril 0 Yes 10mg Take 10 mg U nivers 10 mg 5-03 by mouth ity of tablet 00:00: daily. [facility] benazepril 0 Yes 10mg Take 10 mg U nivers 10 mg 5-03 by mouth ity of tablet 00:00: daily. [facility] benazepril 0 Yes 10mg Take 10 mg U nivers 10 mg 5-03 by mouth ity of tablet 00:00: daily. [facility] benazepril 2018-0 Yes 10mg Take 10 mg U nivers 10 mg 5-03 by mouth ity of tablet 00:00: daily. [place] [facility] benazepril 2018-0 Yes 10mg Take 10 mg U nivers 10 mg 5-03 by mouth ity of tablet 00:00: daily. [place] [facility] amLODIPine 2018-0 Yes 10mg Take 10 mg U nivers 10 mg 4-02 by mouth ity of tablet 00:00: daily. [place] [facility] amLODIPine 2018-0 Yes 10mg Take 10 mg U nivers 10 mg 4-02 by mouth ity of tablet 00:00: daily. [place] [facility] amLODIPine 2018-0 Yes 10mg Take 10 mg U nivers 10 mg 4-02 by mouth ity of tablet 00:00: daily. [place] [facility] amLODIPine 2017-0 Yes 10mg Take 10 mg U nivers 10 mg 4-02 by mouth ity of tablet 00:00: daily. [place] [facility] amLODIPine 2017-0 Yes 10mg Take 10 mg U nivers 10 mg 4-02 by mouth ity of tablet 00:00: daily. [place] [facility] amLODIPine 2018-0 Yes 10mg Take 10 mg U nivers 10 mg 4-02 by mouth ity of tablet 00:00: daily. [address] amLODIPine 2018-0 Yes 10mg Take 10 mg U nivers 10 mg 4-02 by mouth ity of tablet 00:00: daily. [address] amLODIPine 2018-0 2020- No 10mg Take 10 mg Univers 10 mg 4-02 12-11 by mouth ity of tablet 00:00: 00:00 daily. [place] 00 00 [facility] Immunizations Ordered Filled Immunization Date Status Comments [facility] e Immunization Name Name TDAP 2018-03-30 Completed University of 00:00:00 [facility] Zoster Vaccine 2018-03-30 Completed University of Connequity 00:00:00 [facility] Zoster Vaccine 2017-11-24 Completed University of Recombinant 00:00:00 [facility] Vital Signs Vital Name Observation Time Observation Value Comments Source HEIGHT 2021-05-12 11:45:00 172.7 cm WEIGHT 2021-05-12 11:45:00 92.534 kg Systolic blood 2020-05-22 22:15:00 130 mm[Hg] Univer sity of pressure [place] [facility] Diastolic blood 2020-05-22 22:15:00 74 mm[Hg] Unive rsity of pressure [facility] Heart rate 2020-05-22 22:15:00 84 /min Universi ty of [facility] Body temperature 2020-05-22 22:15:00 37.11 Rose Univ ersity of [facility] Respiratory rate 2020-05-22 22:15:00 20 /min Univ ersity of [facility] Oxygen saturation in 2020-05-22 22:15:00 96 /min University of Arterial blood by [facility] Pulse oximetry Branch Body weight 2020-05-22 01:11:00 95.255 kg Universi ty of [facility] BMI 2020-05-22 01:11:00 31.93 kg/m2 Universi ty [facility] Systolic blood 2020-05-22 22:15:00 130 mm[Hg] Univer sity of [facility] Diastolic blood 2020-05-22 22:15:00 74 mm[Hg] Unive rsity of pressure [facility] Heart rate 2020-05-22 22:15:00 84 /min Universi ty of [facility] Body temperature 2020-05-22 22:15:00 37.11 Rose [facility] Respiratory rate 2020-05-22 22:15:00 20 /min Univ ersity of [facility] Oxygen saturation in 2020-05-22 22:15:00 96 /min University of Arterial blood by [facility] Pulse oximetry Branch Body weight 2020-05-22 01:11:00 95.255 kg Universi ty [facility] BMI 2020-05-22 01:11:00 31.93 kg/m2 Universi [place] [facility] Procedures Procedure Date / Time Performing Clinician Source Performed MAGNESIUM 2020-05-22 18:34:[address] [facility] VITAMIN B12, LEVEL 2020-05-22 18:34:00 Renée Mustafa [facility] COMP. METABOLIC PANEL 2020-05-22 18:34:00 Renée Mustafa [facility] ([id number]) Medical Branch ETHANOL 2020-05-22 18:34:[address] [facility] CBC WITH DIFF 2020-05-22 18:34:[address] [facility] PROTHROMBIN TIME / INR 2020-05-22 18:34:00 Renée Mustafa [facility] MAGNESIUM 2020-05-22 01:42:00 Girish Taylor [facility] [place] [facility] TROPONIN I 2020-05-22 01:42:00 Girish Taylor [facility] [place] [facility] COMP. METABOLIC PANEL 2020-05-22 01:42:00 Girish Taylor [facility] ([id number]) [facility] CBC WITH DIFF 2020-05-22 01:42:00 Girish Taylor [facility] [place] [facility] COVID-19 (ID NOW RAPID 2020-05-22 01:42:00 Girish Taylor [facility] TESTING) Medical [place] COGNITIVE ASSESSMENT 2018-10-30 05:01:00 [facility] Encounters Start End Encounter Admission Attending Care Care Encounter Source Date/Time Date/Time Type Type Clinicians Facility Department ID 2021-11-09 Outpatient [facility] [id number] [place] 13:05:[id number] [facility] 2021-11-01 Outpatient [facility] [id number] [place] 09:58:[id number] [facility] 2021-10-15 Outpatient [facility] [id number] [place] 16:27:[id number] [facility] 2021-09-27 Outpatient [facility] [id number] [place] 09:57:[id number] [facility] 2021-07-07 Outpatient [place], STLMLC STLC [id number] Common 13:39:02 Shaun [id number] [facility] 2021-07-07 Outpatient [place], STLMLC STLMLC [id number] Common 13:13:51 Shaun [id number] [facility] 2021-04-10 Emergency [facility] [id number] [facility] KIMBERLY MUELLER Surgery [id number] [facility] 08:07:25 MOHAMED 2021-11-11 2021-11-11 ambulatory STLMLC STLMLC [id number] Common 00:00:00 00:00:00 [facility] 2021-09-09 2021-09-09 Outpatient GALATI, [facility] [id number] [address] [facility] 00:00:00 00:00:00 BRAULIO [address] 2021-09-09 2021-09-09 Outpatient GALATI, [facility] [id number] [address] [facility] 00:00:00 00:00:00 BRAULIO [address] 2021-09-09 2021-09-09 Outpatient GALATI, [facility] [id number] [address] [facility] 00:00:00 00:00:00 BRAULIO [address] 2021-09-09 2021-09-09 Outpatient GALATI, [facility] [id number] [address] [facility] 00:00:00 00:00:00 BRAULIO [address] 2021-09-09 2021-09-09 Outpatient GALATI, [facility] [id number] [address] [facility] 00:00:00 00:00:00 BRAULIO [address] 2021-07-21 2021-07-31 Inpatient Caroline TAN [facility] [id number] [facility] 07:58:00 12:37:00 BRINDA 2021-05-12 2021-05-12 Outpatient [facility] [id number] [facility] 12:05:02 23:59:00 2021-05-05 2021-05-05 ambulatory STLMLC STLMLC [id number] Common 00:00:00 00:00:00 [facility] 2021-05-04 2021-05-04 ambulatory STLMLC STLMLC [id number] Common 00:00:00 00:00:00 [facility] 2021-04-13 2021-04-13 Outpatient ROSMERY DELGADO, [facility] [id number] [facility] 00:00:00 00:00:00 [facility] 2021-04-06 2021-04-06 Outpatient STLMLC STLMLC [id number] Common 00:00:00 00:00:00 [facility] 2021-04-06 2021-04-06 ambulatory STLMLC STLMLC [id number] Common 00:00:00 00:00:00 [facility] 2021-03-16 2021-03-16 Outpatient STLMLC STLMLC [id number] Common 00:00:00 00:00:00 [facility] 2021-03-16 2021-03-16 Outpatient STLMLC STLMLC [id number] Common 00:00:00 00:00:00 [facility] 2021-03-10 2021-03-10 Outpatient STLMLC STLMLC [id number] Common 00:00:00 00:00:00 [facility] 2021-03-09 2021-03-09 Outpatient STLMLC STLMLC [id number] Common 00:00:00 00:00:00 [facility] 2021-01-29 2021-01-29 Outpatient STLMLC STLMLC [id number] Common 00:00:00 00:00:00 [facility] 2021-01-29 2021-01-29 Outpatient STLMLC STLMLC [id number] Common 00:00:00 00:00:00 [facility] 2021-01-27 2021-01-27 Outpatient STLMLC STLMLC [id number] Common 00:00:00 00:00:00 [facility] 2021-01-27 2021-01-27 Outpatient STLMLC STLMLC [id number] Common 00:00:00 00:00:00 [facility] 2021-01-22 2021-01-22 Outpatient STLMLC STLMLC [id number] Common 00:00:00 00:00:00 [facility] 2021-01-21 2021-01-21 Outpatient STLMLC STLMLC [id number] Common 00:00:00 00:00:00 [facility] 2020-11-26 2020-11-26 Outpatient STLMLC STLMLC [id number] Common 00:00:00 00:00:00 [facility] 2020-11-20 2020-11-20 Outpatient STLMLC STLMLC [id number] Common 00:00:00 00:00:00 [facility] 2020-05-21 2020-05-22 Emergency Girish Taylor [facility] 1.2.840 .114 [id number] [facility] 19:04:00 18:10:00 Hector Lyman 350.1.13.10 ity of Renée Mustafa [place] 4.2.7.2.686 [facility] [phone] [address] 2020-05-21 2020-05-22 Emergency Girish Taylor [facility] 1.2.840 .114 [id number] 19:04:00 18:10:00 Hector Lyman 350.1.13.10 [place] 4.2.7.2.686 [place] [phone] [facility] 2019-12-01 2019-12-01 Refill Beth, [facility] 1.2.840.114 [id number] Univers 00:00:00 00:00:00 Kit Slade 350.1.13.10 it[place] [phone] [address] 2019-12-01 2019-12-01 Refill Beth, [facility] 1.2.840.114 [id number] 00:00:00 00:00:00 Kit Slade 350.1.13.10 [place] 4.2.7.2.686 Professio [phone] [address] 2019-11-08 2019-11-08 Reffabián Campos, [facility] 1.2.840.114 [id number] Univers 00:00:00 00:00:00 Kit Slade 350.1.13.10 it[place] [phone] [address] 2019-11-08 2019-11-08 Reffabián Campos, [facility] 1.2.840.114 [id number] 00:00:00 00:00:00 Kit Slade 350.1.13.10 [place] 4.2.7.2.686 Professio [phone] [address] 2019-10-17 2019-10-17 Reffabián Campos, [facility] 1.2.840.114 [id number] Univers 00:00:00 00:00:00 Kit Slade 350.1.13.10 it[place] [phone] [address] 2019-10-17 2019-10-17 [facility] 1.2.840.114 [id number] 00:00:00 00:00:00 Kit Slade 350.1.13.10 [place] 4.2.7.2.686 Professio [phone] [address] 2019-09-16 2019-09-16 [facility] 1.2.840.114 [id number] Univers 00:00:00 00:00:00 Kit Slade 350.1.13.10 it[place] [phone] [address] 2019-09-16 2019-09-16 [facility] 1.2.840.114 [id number] 00:00:00 00:00:00 Kit Slade 350.1.13.10 [place] 4.2.7.2.686 Professio [phone] [address] 2019-07-18 2019-07-18 [facility] 1.2.840.114 [id number] Univers 00:00:00 00:00:00 Kit Slade 350.1.13.10 it[place] [phone] [address] 2019-07-18 2019-07-18 [facility] 1.2.840.114 [id number] 00:00:00 00:00:00 Kit Slade 350.1.13.10 [place] 4.2.7.2.686 Professio [phone] [address] 2019-07-17 2019-07-17 [place] [facility] 1.2.840.114 [id number] Univers 00:00:00 00:00:00 Kit Slade 350.1.13.10 it[place] [phone] [facility] [facility] 2019-07-17 2019-07-17 Telephone Beth [facility] 1.2.840.114 [id number] 00:00:00 00:00:00 Kit Slade 350.1.13.10 [place] 4.2.7.2.686 Professio [phone] [address] 2019-05-27 2019-05-27 Outpatient R KIT CAMPOS [facility] [id number] Univers 11:00:00 13:00:07 KIT CAMPOS ity [facility] 2018-10-30 2018-10-30 Orders Doctor CHYNA 1.2.840.114 [id number] Univers 00:00:00 00:00:00 Only Unassigned, JANNET 350.1.13.10 ity of [place] [facility] 4.2.7.2.686 [place] as [phone] [facility] [address] 2018-10-30 2018-10-30 Orders Doctor CHYNA 1.2.840.114 [id number] 00:00:00 00:00:00 Only Unassigned, JANNET 350.1.13.10 [place] [facility] 4.2.7.2.686 [id number] 009 Results Test Description Test Time Test Comments Results Result Comments Source VITAMIN B12, LEVEL 2020-05-22 23:44:00 Test Item Value Reference Range Interpretation Comme nts VIT B12 (test code = 7154038011) 580 pg/mL 240-930 BHAVANI (test code = BHAVANI) Biotin has been reported to cause a positive bias, interpret results relative to patient's use of biotin. Lab Interpretation (test code = Normal 75673-6) [facility] 20:05:00 Test Item Value Reference Range Interpretation Comments ALCOHOL (test code = <10 mg/dL 4082831020) BHAVANI (test code = BHAVANI) <10 Neyevvle33-446 Toxic>100 Depression of [employer]>400 Fatalities Reported [facility] WITH [id number] 19:47:00 Test Item Value Reference Range Interpretation [...] (test code = 58.4 fL 38.5-51.6 H 46120-0) RDW-CV (test code = 16.2 % 12.1-15.4 H 788-0) PLT (test code = See_Comment L [Automated 777-3) message] The sy stem which generated this result transmitted reference range : 150 - 328 10*3/ ?L. The reference r tk was not used to interpret this result as normal/abnormal . MPV (test code = 9.5 fL 9.8-13 L 84173-4) IPF % (test code = 2.9 % 1.2-10.7 Platelet count 6313651632) measured by fluorescence method. NRBC/100 WBC (test See_Comment [Automat ed code = 8740481645) message] The system which generated this result transmitted reference range : 0.0 - 10.0 /100 WBCs. The refer ence range was not u sed to interpret th is result as normal/abnormal . NRBC x10^3 (test code <0.01 See_Comment [Auto mated = 6713222650) message] The s ystem which generated this result transmitted reference range : 10*3/?L. The reference range was not used to interpret this result as normal/abnormal . GRAN MAT (NEUT) % 65.7 % (test code = 770-8) IMM GRAN % (test code 0.50 % = 0774817218) LYMPH % (test code = 23.6 % 736-9) MONO % (test code = 9.5 % 5905-5) EOS % (test code = 0.2 % 713-8) BASO % (test code = 0.5 % 706-2) GRAN MAT x10^3(ANC) 2.64 10*3/uL 1.99-6.95 (test code = 6947089411) IMM GRAN x10^3 (test <0.03 0-0.06 code = 6310751400) LYMPH x10^3 (test code 0.95 10*3/uL 1.09-3.23 L = 731-0) MONO x10^3 (test code 0.38 10*3/uL 0.36-1.02 = 742-7) EOS x10^3 (test code = <0.03 0.06-0.53 L 711-2) BASO x10^3 (test code <0.03 0.01-0.09 = 704-7) Lab Interpretation Abnormal (test code = 26002-4) [facility] METABOLIC PANEL (26089)2020-05-22 19:39:00 Test Item Value Reference Range Interpretation Comments NA (test code = 134 mmol/L 135-145 L 2431084809) K (test code = 3.3 mmol/L 3.5-5 L 5936444875) CL (test code = 100 mmol/L 98-108 1825821758) CO2 TOTAL (test code = 28 mmol/L 23-31 3678331915) AGAP (test code = 2-16 4309035392) BUN (test code = 11 mg/dL 7-23 5350960716) GLUCOSE (test code = 124 mg/dL 70-110 H 8385224744) CREATININE (test code = 0.97 mg/dL 0.6-1.25 4996548209) TOTAL BILI (test code = 1.3 mg/dL 0.1-1.1 H 3866563555) CALCIUM (test code = 9.4 mg/dL 8.6-10.6 9531898548) T PROTEIN (test code = 7.0 g/dL 6.3-8.2 6467983051) ALBUMIN (test code = 4.0 g/dL 3.5-5 8816274587) ALK PHOS (test code = 85 U/L 34-122 3907756836) ALTv (test code = 30 U/L 5-50 1742-6) AST(SGOT) (test code = 68 U/L 13-40 H 3630146710) eGFR Calculation mL/min/1.73m2 (Non-) (test code = 2015888579) eGFR Calculation mL/min/1.73m2 () (test code = 7391373323) BHAVANI (test code = BHAVANI) Association of [...] tests). Lab Interpretation Abnormal (test code = 08486-8) [facility]2020-12-11 19:22:00 Test Item Value Reference Range Interpretation Comments MAGNESIUM (test code = 4085385509) 1.8 mg/dL 1.7-2.4 Lab Interpretation (test code = Normal 63014-9) [facility] [place] [facility] ResourcesPROTHROMBIN TIME / [id number] 19:09:00 Test Item Value Reference Range Interpretation [...] tions. Lab Interpretation (test Normal code = 68582-1) [facility] WITH [id number] 02:43:00 Test Item Value Reference Range Interpretation [...] (test code = 57.5 fL 38.5-51.6 H 30625-3) RDW-CV (test code = 15.9 % 12.1-15.4 H 788-0) PLT (test code = See_Comment L [Automated 777-3) message] The sy stem which generated this result transmitted reference range : 150 - 328 10*3/ ?L. The reference r tk was not used to interpret this result as normal/abnormal . MPV (test code = 9.3 fL 9.8-13 L 26872-5) IPF % (test code = 2.4 % 1.2-10.7 Platelet count 5019022407) measured by fluorescence method. NRBC/100 WBC (test See_Comment [Automat ed code = 8219459861) message] The system which generated this result transmitted reference range : 0.0 - 10.0 /100 WBCs. The refer ence range was not u sed to interpret th is result as normal/abnormal . NRBC x10^3 (test code See_Comment [Auto mated = 1546781294) message] The s ystem which generated this result transmitted reference range : 10*3/?L. The reference range was not used to interpret this result as normal/abnormal . GRAN MAT (NEUT) % 77.1 % (test code = 770-8) IMM GRAN % (test code 1.20 % = 3373911083) LYMPH % (test code = 12.8 % 736-9) MONO % (test code = 8.4 % 5905-5) EOS % (test code = 0.0 % 713-8) BASO % (test code = 0.5 % 706-2) GRAN MAT x10^3(ANC) 3.33 10*3/uL 1.99-6.95 (test code = 4329739828) IMM GRAN x10^3 (test 0.05 10*3/uL 0-0.06 code = 3985930530) LYMPH x10^3 (test code 0.55 10*3/uL 1.09-3.23 L = 731-0) MONO x10^3 (test code 0.36 10*3/uL 0.36-1.02 = 742-7) EOS x10^3 (test code = <0.03 0.06-0.53 L 711-2) BASO x10^3 (test code <0.03 0.01-0.09 = 704-7) PLT ESTIMATE (test Decreased Normal A code = 9317-9) Lab Interpretation Abnormal (test code = 04131-4) [facility] [id number] 02:21:00 Test Item Value Reference Range Interpretation Comments TROPONIN I (test 0.018 ng/mL See_Comment [Automated code = 6814384023) message] The system which generated this result [...] ? Lab Interpretation Normal (test code = 67792-1) [facility] (ID NOW RAPID TESTING)2020-05-22 02:17:00 Test Item Value Reference Range Interpretation Comments SARS-CoV-2 Rapid ID NOW Not Detected Not Detected (test code = 93182-2) BHAVANI (test code = BHAVANI) ID NOW COVID-19 Assay is an isothermal nucleic acid amplification test intended for the qualitative detection of nucleic acid from SARS-CoV-2 viral RNA in nasopharyngeal (TOOL DESIGNER APPRENTICE) specimens. It is used under Emergency Use [...] indicated. Lab Interpretation Normal (test code = 77508-2) [facility]. METABOLIC PANEL (35161)2020-05-22 02:09:00 Test Item Value Reference Range Interpretation Comments NA (test code = 135 mmol/L 135-145 5003517649) K (test code = 3.6 mmol/L 3.5-5 5671634027) CL (test code = 102 mmol/L 98-108 9897431403) CO2 TOTAL (test code = 21 mmol/L 23-31 L 7141676660) AGAP (test code = 2-16 4445080466) BUN (test code = 14 mg/dL 7-23 3129250064) GLUCOSE (test code = 184 mg/dL 70-110 H 5117359392) CREATININE (test code = 0.79 mg/dL 0.6-1.25 6249782191) TOTAL BILI (test code = 1.8 mg/dL 0.1-1.1 H 4995375643) CALCIUM (test code = 9.0 mg/dL 8.6-10.6 0068179101) T PROTEIN (test code = 7.5 g/dL 6.3-8.2 1792278276) ALBUMIN (test code = 4.3 g/dL 3.5-5 1698340460) ALK PHOS (test code = 84 U/L 34-122 4738892191) ALTv (test code = 34 U/L 5-50 1742-6) AST(SGOT) (test code = 81 U/L 13-40 H 2016492328) eGFR Calculation mL/min/1.73m2 (Non-) (test code = 2655222298) eGFR Calculation mL/min/1.73m2 () (test code = 9436496275) BHAVANI (test code = BHAVANI) Association of [...] tests). Lab Interpretation Abnormal (test code = 43792-2) [facility]2020-12-11 02:09:00 Test Item Value Reference Range Interpretation Comments MAGNESIUM (test code = 8333822420) 1.6 mg/dL 1.7-2.4 L Lab Interpretation (test code = Abnormal 00625-1) [facility] ResourcesTISSUE [id number] 18:37:00Surgical Pathology Report Case: [id number] Authorizing Provider: Lencho Delgado, Collected: 04/09/2019 Slime KELLY OrderingLocation: [facility] Received: 04/09/2019 1223 PERIOPERAT[facility] [employer] Pathologist: Jose Alfredo Dozier MD Specimen: Aortic Valve, AORTIC VALVE LEAFLET HEART, AORTIC VALVE,VALVULECTOMY:LEAFLETS WITH NODULAR CALCIFIC ATHEROSCLEROTIC THICKENING Signing Pathologist Direct Phone Line: [phone] signed by Jose Alfredo Dozier MD on 04/15/2019 at 6:37 [id number]; [id number]-nvsuhezyh aortic valve stenosisAortic valve leafletReceived fresh with patient's demographic information and surgical accession number are fragments of calcified valvular leaflet, 3.5 x 2 x up to 1 cm in greatest dimension. Screening Tech section submitted in A1 for decalcification. HL/plPe [...] WBC 0-0 (BEAKER) (test code = 413) [id number] 04:42:00 Test Item Value Reference Range Interpretation Comments MAGNESIUM (BEAKER) (test code = 1.8 mg/dL 1.6-2.6 627) BASIC METABOLIC [id number] 04:42:00 Test Item Value Reference Range Interpretation [...] PATIEN TS. CBC W/PLT COUNT & AUTO [id number] 04:28:00 Test Item Value Reference Range Interpretation [...] = 2801) CBC W/PLT COUNT & AUTO [id number] 11:55:00 Test Item Value Reference Range Interpretation [...] H PERCENT (BEAKER) (test code = 2801) [id number] 08:43:00 Test Item Value Reference Range Interpretation Comments MAGNESIUM (BEAKER) 1.9 mg/dL 1.6-2.6 Specimen slightly (test code = 627) hemolyzed BASIC METABOLIC [id number] 08:43:00 Test Item Value Reference Range Interpretation [...] S NOT APPLICABLE FOR DIALYSIS PATIEN TS. [id number] 03:36:00 Test Item Value Reference Range Interpretation Comments MAGNESIUM (BEAKER) (test code = 1.8 mg/dL 1.6-2.6 627) BASIC METABOLIC [id number] 03:36:00 Test Item Value Reference Range Interpretation [...] PATIEN TS. CBC W/PLT COUNT & AUTO [id number] 03:10:00 Test Item Value Reference Range Interpretation [...] 0-1 PERCENT (BEAKER) (test code = 2801) [id number] 06:05:00 Test Item Value Reference Range Interpretation Comments MAGNESIUM (BEAKER) (test code = 1.9 mg/dL 1.6-2.6 627) BASIC METABOLIC [id number] 06:05:00 Test Item Value Reference Range Interpretation [...] PATIEN TS. CBC W/PLT COUNT & AUTO [id number] 05:42:00 Test Item Value Reference Range Interpretation [...] PERCENT (BEAKER) (test code = 2801) POCT-GLUCOSE [id number] 18:07:00 Test Item Value Reference Range Interpretation Comments POC-GLUCOSE METER 97 mg/dL 70-110 : TESTED A T [facility] 6720 (BEAKER) (test code = [facility], 1538) 58292: Perfume Maker/Techni criss ID = [id number] for MANANO IRAIS Mccray POCT-GLUCOSE [id number] 13:23:00 Test Item Value Reference Range Interpretation Comments POC-GLUCOSE METER 92 mg/dL 70-110 : TESTED A T [facility] 6720 (BEAKER) (test code = [facility], 1538) 40243: Perfume Maker/Techni criss ID = [id number] for MANANO NIRAIS TROPONIN [id number] 12:02:00 Test Item Value Reference Range Interpretation Comments TROPONIN I (BEAKER) (test code = 0.66 ng/mL 0.00-0.03 [facility]) Troponin I (TnI) levels must [...] acidosis, acute neurological disease, and persistent tachyarrhythmia.POCT-GLUCOSE [id number] 08:03:00 Test Item Value Reference Range Interpretation Comments POC-GLUCOSE METER 99 mg/dL 70-110 : TESTED A T [facility] 6720 (BEAKER) (test code = [place], 1538) 14586: Perfume Maker/Techni criss ID = [id number] for IRAIS ESQUIVEL RAD, CHEST, 1 VIEW, NON [id number] 07:02:00Reason for exam:->chest tubeShould this be performed at the bedside?->YesFINAL REPORT CLINICAL INDICATION: Support lines. Comparison: 04/10/2019 The c ardiomediastinal contours are stable. Central pulmonary vascular prominence and bilateral parenchymal and pleural opacities are similar to previous. There is no pneumothorax. A right IJ CVC has been removed. Signed: Ralph New MDReport Verified Date/Time: 04/11/2019 07:02:55 TROPONIN [id number] 03:58:00 Test Item Value Reference Range Interpretation Comments TROPONIN I (BEAKER) (test code = 0.89 ng/mL 0.00-0.03 HH 397) Troponin I (TnI) levels must be [...] failure, acidosis, acute neurological disease, and persistent tachyarrhythmia.[id number] 03:34:00 Test Item Value Reference Range Interpretation Comments PHOSPHORUS (BEAKER) (test code = 2.4 mg/dL 2.3-4.7 604) [id number] 03:34:00 Test Item Value Reference Range Interpretation Comments MAGNESIUM (BEAKER) (test code = 2.0 mg/dL 1.6-2.6 627) BASIC METABOLIC [id number] 03:34:00 Test Item Value Reference Range Interpretation [...] 0-0 (BEAKER) (test code = 413) POCT-GLUCOSE [id number] 22:10:00 Test Item Value Reference Range Interpretation Comments POC-GLUCOSE METER 139 mg/dL 70-110 H : TESTED A T [facility] 6720 (МАРИЯ) (test code = [facility], 1538) 68615: Perfume Maker/Techni criss ID = [id number] for WH LYUBOV FARRIS POCT-GLUCOSE [id number] 21:27:00 Test Item Value Reference Range Interpretation Comments POC-GLUCOSE METER 126 mg/dL 70-110 H : TESTED A T [facility] 6720 ([facility]) (test code = [facility], 1538) 04439: Perfume Maker/Techni criss ID = [id number] for Cr uz, Natty POCT-GLUCOSE [id number] 12:13:00 Test Item Value Reference Range Interpretation Comments POC-GLUCOSE METER 190 mg/dL 70-110 H : TESTED A T [facility] 6720 ([facility]) (test code = [facility], 1538) 79055: Perfume Maker/Techni criss ID = [id number] for OM MIRELA, ALICEA RAD, CHEST, 1 VIEW, NON [id number] 04:52:00while patient is intubated or has chest [...] /100 WBC 0-0 (test code = 413) [id number] 03:40:00 Test Item Value Reference Range Interpretation Comments PHOSPHORUS (BEAKER) (test code = 4.4 mg/dL 2.3-4.7 604) [id number] 03:40:00 Test Item Value Reference Range Interpretation Comments MAGNESIUM (BEAKER) (test code = 1.9 mg/dL 1.6-2.6 627) BASIC METABOLIC [id number] 03:40:00 Test Item Value Reference Range Interpretation [...] NOT APPLICABLE FOR DIALYSIS PATIEN TS. POCT-GLUCOSE [id number] 23:09:00 Test Item Value Reference Range Interpretation Comments POC-GLUCOSE METER 124 mg/dL 70-110 H : TESTED A T [facility] 6720 (BEAKER) (test code = [facility], 1538) 54328: Perfume Maker/Techni criss ID = [id number] for CLAUDIA ERICKSON POCT-GLUCOSE [id number] 18:45:00 Test Item Value Reference Range Interpretation Comments POC-GLUCOSE METER 145 mg/dL 70-110 H : [facility] (test code = [facility], 1538) 42422: Perfume Maker/Techni criss ID = [id number] for Brown Santos POCT-GLUCOSE [id number] 17:16:00 Test Item Value Reference Range Interpretation Comments POC-GLUCOSE METER 154 mg/dL 70-110 H : Will Rep eat Test: (BEAKER) (test code = [facility], [address]: Perfume Maker/Techni criss ID = [id number] for WEST LLLUISOE BLOOD GAS, [id number] 16:11:00 Test Item Value Reference Range Interpretation [...] (BEAKER) (test code = 1819) 40.0 % [id number] 14:13:00 Test Item Value Reference Range Interpretation Comments MAGNESIUM (BEAKER) (test code = 1.6 mg/dL 1.6-2.6 627) RAD, CHEST, 1 VIEW, NON [id number] 13:42:00Reason for exam:->Status post CV Surgery post [...] [place] Verified Date/Time: 2018 13:42:07 Reading Location: [facility] Reading Room CBC W/PLT COUNT & AUTO [id number] 13:21:00 Test Item Value Reference Range Interpretation [...] = 3438) Received comment: User comments: Slide comments:[id number] 13:20:00 Test Item Value Reference Range Interpretation Comments FIBRINOGEN LEVEL (BEAKER) (test 222 mg/dl 225-434 L code = 658) [id number] 13:20:00 Test Item Value Reference Range Interpretation Comments PARTIAL THROMBOPLASTIN TIME 34.1 seconds 22.5-36.0 (BEAKER) (test code = 760) PROTHROMBIN TIME/[id number] 13:19:00 Test Item Value Reference Range Interpretation [...] INR is2.5-3.5 for patients wiht mechanical heart valves.[id number] 13:17:00 Test Item Value Reference Range Interpretation Comments PHOSPHORUS (BEAKER) (test code = 3.5 mg/dL 2.3-4.7 604) BASIC METABOLIC [id number] 13:17:00 Test Item Value Reference Range Interpretation [...] APPLICABLE FOR DIALYSIS PATIEN TS. LACTIC ACID, [id number] 13:13:00 Test Item Value Reference Range Interpretation Comments LACTATE BLOOD ARTERIAL (2) 0.9 mmol/L 0.5-2.2 (BEAKER) (test code = 2874) CALCIUM, [id number] 13:03:00 Test Item Value Reference Range Interpretation Comments CALCIUM IONIZED (BEAKER) (test 1.19 mmol/L 1.12-1.27 code = 698) PH, BLOOD (BEAKER) (test code = 7.36 1810) BLOOD GAS, [id number] 13:02:00 Test Item Value Reference Range Interpretation [...] code = 1819) 60.0 % OXYGEN SATURATION, [id number] 12:56:00 Test Item Value Reference Range Interpretation [...] 59.5 MM 55.0-65.0 (test code = 1413) [id number] 12:03:00 Test Item Value Reference Range Interpretation Comments FIBRINOGEN LEVEL (BEAKER) (test 224 mg/dl 225-434 L code = 658) [id number] 12:03:00 Test Item Value Reference Range Interpretation Comments PARTIAL THROMBOPLASTIN TIME 37.1 seconds 22.5-36.0 H (BEAKER) (test code = 760) PROTHROMBIN TIME/[id number] 12:02:00 Test Item Value Reference Range Interpretation [...] is2.5-3.5 for patients wiht mechanical heart valves.PLATELET [id number] 11:51:00 Test Item Value Reference Range Interpretation Comments PLATELET COUNT (BEAKER) (test 116 K/CU MM 150-450 L code = 756) POTASSIUM-STAT [id number] 11:47:00 Test Item Value Reference Range Interpretation Comments POTASSIUM (BEAKER) (test code = 4.8 meq/L 3.6-5.5 379) BLOOD GAS, [id number] 11:47:00 Test Item Value Reference Range Interpretation [...] (test code = 1819) 97.0 % CALCIUM, [id number] 11:47:00 Test Item Value Reference Range Interpretation Comments CALCIUM IONIZED (BEAKER) (test 1.08 mmol/L 1.12-1.27 L code = 698) PH, BLOOD (BEAKER) (test code = 7.30 1810) GLUCOSE-STAT [id number] 11:47:00 Test Item Value Reference Range Interpretation Comments GLUCOSE RANDOM (BEAKER) (test code 175 mg/dL 70-110 H = 652) SODIUM NA-STAT [id number] 11:47:00 Test Item Value Reference Range Interpretation Comments SODIUM (BEAKER) (test code = 381) 133 meq/L 135-148 L HGB/HCT (H&H) - STAT [id number] 11:47:00 Test Item Value Reference Range Interpretation [...] L (test code = 1413) BLOOD GAS, [id number] 11:17:00 Test Item Value Reference Range Interpretation [...] (test code = 1819) 91.0 % GLUCOSE-STAT [id number] 11:17:00 Test Item Value Reference Range Interpretation Comments GLUCOSE RANDOM (BEAKER) (test code 149 mg/dL 70-110 H = 652) HGB/HCT (H&H) - STAT [id number] 11:17:00 Test Item Value Reference Range Interpretation Comments HEMOGLOBIN (BEAKER) (test code = 8.5 g/dL 13.0-16.8 L 410) HEMATOCRIT (BEAKER) (test code = 25.0 % 40.0-50.0 L 411) SODIUM NA-STAT [id number] 11:17:00 Test Item Value Reference Range Interpretation Comments SODIUM (BEAKER) (test code = 381) 133 meq/L 135-148 L POTASSIUM-STAT [id number] 11:16:00 Test Item Value Reference Range Interpretation Comments POTASSIUM (BEAKER) (test code = 4.9 meq/L 3.6-5.5 379) [id number] 11:10:00 Test Item Value Reference Range Interpretation Comments ACTIVATED CLOTTING TIME 125 sec Refe rence Range: (BEAKER) (test code = 74-137 seconds, 441) Baseline/TESTED AT [address] [address] [id number] 11:10:00 Test Item Value Reference Range Interpretation Comments ACTIVATED CLOTTING TIME 549 sec Refe rence Range: (BEAKER) (test code = 74-137 seconds, 441) Baseline/TESTED AT [address] [address] [id number] 11:10:00 Test Item Value Reference Range Interpretation Comments ACTIVATED CLOTTING TIME 675 sec Refe rence Range: (BEAKER) (test code = 74-137 seconds, 441) Baseline/TESTED AT [address] [address] [id number] 11:10:00 Test Item Value Reference Range Interpretation Comments ACTIVATED CLOTTING TIME 885 sec Refe rence Range: (BEAKER) (test code = 74-137 seconds, 441) Baseline/TESTED AT [address] [address] [id number] 11:10:00 Test Item Value Reference Range Interpretation Comments ACTIVATED CLOTTING TIME 643 sec Refe rence Range: (BEAKER) (test code = 74-137 seconds, 441) Baseline/TESTED AT [address] [address] [id number] 10:55:00 Test Item Value Reference Range Interpretation Comments FIBRINOGEN LEVEL (BEAKER) (test 228 mg/dl 225-434 code = 658) [id number] 10:55:00 Test Item Value Reference Range Interpretation Comments PARTIAL THROMBOPLASTIN TIME 41.1 seconds 22.5-36.0 H (BEAKER) (test code = 760) PROTHROMBIN [id number] 10:54:00 Test Item Value Reference Range Interpretation [...] is2.5-3.5 for patients wiht mechanical heart valves.PLATELET [id number] 10:44:00 Test Item Value Reference Range Interpretation Comments PLATELET COUNT (BEAKER) (test code 83 K/CU MM 150-450 L = 756) BLOOD GAS, [id number] 10:44:00 Test Item Value Reference Range Interpretation [...] code = 1819) 92.0 % SODIUM NA-STAT [id number] 10:44:00 Test Item Value Reference Range Interpretation Comments SODIUM (BEAKER) (test code = 381) 130 meq/L 135-148 L GLUCOSE-STAT [id number] 10:44:00 Test Item Value Reference Range Interpretation Comments GLUCOSE RANDOM (BEAKER) (test code 154 mg/dL 70-110 H = 652) HGB/HCT (H&H) - STAT [id number] 10:44:00 Test Item Value Reference Range Interpretation Comments HEMOGLOBIN (BEAKER) (test code = 9.1 g/dL 13.0-16.8 L 410) HEMATOCRIT (BEAKER) (test code = 27.0 % 40.0-50.0 L 411) CALCIUM, [id number] 10:44:00 Test Item Value Reference Range Interpretation Comments CALCIUM IONIZED (BEAKER) (test 1.11 mmol/L 1.12-1.27 L code = 698) PH, BLOOD (BEAKER) (test code = 7.40 1810) POTASSIUM-STAT [id number] 10:40:00 Test Item Value Reference Range Interpretation Comments POTASSIUM (BEAKER) (test code = 5.0 meq/L 3.6-5.5 379) BLOOD GAS, [id number] 09:57:00 Test Item Value Reference Range Interpretation [...] (test code = 1819) 80.0 % GLUCOSE-STAT [id number] 09:57:00 Test Item Value Reference Range Interpretation Comments GLUCOSE RANDOM (BEAKER) (test code 168 mg/dL 70-110 H = 652) SODIUM NA-STAT [id number] 09:57:00 Test Item Value Reference Range Interpretation Comments SODIUM (BEAKER) (test code = 381) 131 meq/L 135-148 L POTASSIUM-STAT [id number] 09:57:00 Test Item Value Reference Range Interpretation Comments POTASSIUM (BEAKER) (test code = 5.9 meq/L 3.6-5.5 H 379) HGB/HCT (H&H) - STAT [id number] 09:57:00 Test Item Value Reference Range Interpretation Comments HEMOGLOBIN (BEAKER) (test code = 8.5 g/dL 13.0-16.8 L 410) HEMATOCRIT (BEAKER) (test code = 25.0 % 40.0-50.0 L 411) BLOOD GAS, [id number] 09:31:00 Test Item Value Reference Range Interpretation Comments PH ARTERIAL (BEAKER) (test code = 7.41 7.35-7.45 383) PCO2 ARTERIAL (BEAKER) (test code 37 mmHg 35-45 = 384) PO2 ARTERIAL (BEAKER) (test code 299 mmHg 80-90 H = 385) O2 SATURATION ARTERIAL (BEAKER) 99.7 % 96.0-97.0 H (test code = 386) HCO3 ARTERIAL (BEAKER) (test code 25 mmol/L - = 388) BASE EXCESS ARTERIAL (BEAKER) -1.8 mmol/L -2.0-3.0 (test code = 387) PATIENT TEMPERATURE (BEAKER) 30.0 C (test code = 1818) FIO2 (BEAKER) (test code = 1819) 65.0 % SODIUM NA-STAT [id number] 09:31:00 Test Item Value Reference Range Interpretation Comments SODIUM (BEAKER) (test code = 381) 131 meq/L 135-148 L GLUCOSE-STAT [id number] 09:31:00 Test Item Value Reference Range Interpretation Comments GLUCOSE RANDOM (BEAKER) (test code 175 mg/dL 70-110 H = 652) HGB/HCT (H&H) - STAT [id number] 09:31:00 Test Item Value Reference Range Interpretation Comments HEMOGLOBIN (BEAKER) (test code = 7.7 g/dL 13.0-16.8 L 410) HEMATOCRIT (BEAKER) (test code = 23.0 % 40.0-50.0 L 411) POTASSIUM-STAT [id number] 09:29:00 Test Item Value Reference Range Interpretation Comments POTASSIUM (BEAKER) (test code = 5.5 meq/L 3.6-5.5 379) POTASSIUM-STAT [id number] 09:07:00 Test Item Value Reference Range Interpretation Comments POTASSIUM (BEAKER) 6.9 meq/L 3.6-5.5 HH Sample NO T Hemolyzed. (test code = 379) BLOOD GAS, [id number] 09:05:00 Test Item Value Reference Range Interpretation [...] (test code = 1819) 70.0 % GLUCOSE-STAT [id number] 09:05:00 Test Item Value Reference Range Interpretation Comments GLUCOSE RANDOM (BEAKER) (test code 216 mg/dL 70-110 H = 652) HGB/HCT (H&H) - STAT [id number] 09:05:00 Test Item Value Reference Range Interpretation Comments HEMOGLOBIN (BEAKER) (test code = 8.0 g/dL 13.0-16.8 L 410) HEMATOCRIT (BEAKER) (test code = 24.0 % 40.0-50.0 L 411) SODIUM NA-STAT [id number] 09:05:00 Test Item Value Reference Range Interpretation Comments SODIUM (BEAKER) (test code = 381) 123 meq/L 135-148 L GLUCOSE-STAT [id number] 08:03:00 Test Item Value Reference Range Interpretation Comments GLUCOSE RANDOM (BEAKER) (test code 107 mg/dL 70-110 = 652) POTASSIUM-STAT [id number] 08:03:00 Test Item Value Reference Range Interpretation Comments POTASSIUM (BEAKER) (test code = 4.2 meq/L 3.6-5.5 379) BLOOD GAS, [id number] 08:03:00 Test Item Value Reference Range Interpretation Comments PH ARTERIAL (BEAKER) (test code = 7.47 7.35-7.45 H 383) PCO2 ARTERIAL (BEAKER) (test code 33 mmHg 35-45 L = 384) PO2 ARTERIAL (BEAKER) (test code = 407 mmHg 80-90 H 385) O2 SATURATION ARTERIAL (BEAKER) 99.8 % 96.0-97.0 H (test code = 386) HCO3 ARTERIAL (BEAKER) (test code 24 mmol/L = 388) BASE EXCESS ARTERIAL (BEAKER) 0.0 mmol/L -2.0-3.0 (test code = 387) PATIENT TEMPERATURE (BEAKER) (test 35.2 C code = 1818) FIO2 (BEAKER) (test code = 1819) 100.0 % SODIUM NA-STAT [id number] 08:03:00 Test Item Value Reference Range Interpretation Comments SODIUM (BEAKER) (test code = 381) 130 meq/L 135-148 L HGB/HCT (H&H) - STAT [id number] 08:03:00 Test Item Value Reference Range Interpretation Comments HEMOGLOBIN (BEAKER) (test code = 12.3 g/dL 13.0-16.8 L 410) HEMATOCRIT (BEAKER) (test code = 36.0 % 40.0-50.0 L 411) CALCIUM, [id number] 08:02:00 Test Item Value Reference Range Interpretation Comments CALCIUM IONIZED (BEAKER) (test 1.23 mmol/L 1.12-1.27 code = 698) PH, BLOOD (BEAKER) (test code = 7.45 1810) POCT-GLUCOSE [id number] 06:05:00 Test Item Value Reference Range Interpretation Comments POC-GLUCOSE METER 96 mg/dL 70-110 : TESTED A T [facility] 6720 (BEAKER) (test code = BERNARDROBBIN [facility], 1538) [address]: Perfume Maker/Techni criss ID = [id number] for JORD AN, LACRYSTAL RAD, CHEST, 2 [id number] 13:23:00In departmentReason for exam:->Aoritc valve replacement Pre op screenFINAL REPORT CLINICAL HISTORY: Aortic valve replacement Pre op screen TECHNIQUE: 2 views of the chest COMPARISON: None IMPRESSION: There are no focal infiltrates or effusions. The cardiomediastinal silhouette is within normal limits for size. The osseous structures appear intact. Signed: Jaiden Galvan MDReport Verified Date/Time: 04/04/2019 13:23:46 Reading Location: [facility] Radiology Reading Room HEMOGLOBIN [id number] 13:07:00 Test Item Value Reference Range Interpretation Comments HEMOGLOBIN A1C (BEAKER) (test code = 4.7 % 4.3-6.1 368) [id number] 12:23:00 Test Item Value Reference Range Interpretation Comments MAGNESIUM (BEAKER) (test code = 2.0 mg/dL 1.6-2.6 627) COMPREHENSIVE METABOLIC [id number] 12:23:00 Test Item Value Reference Range Interpretation [...] NOT APPLICABLE FOR DIALYSIS PATIEN TS. LIPID [id number] 12:23:00 Test Item Value Reference Range Interpretation [...] 100-129 Borderline 130-159 High 160-189 Very High [id number] 12:02:00 Test Item Value Reference Range Interpretation Comments PARTIAL THROMBOPLASTIN TIME 34.5 seconds 22.5-36.0 (BEAKER) (test code = 760) PROTHROMBIN [id number] 12:01:00 Test Item Value Reference Range Interpretation [...] mechanical heart valves.CBC W/PLT COUNT & AUTO [id number] 11:52:00 Test Item Value Reference Range Interpretation [...] 0-1 H PERCENT (BEAKER) (test code = 3873)"
[2021-12-02] MEDS ORDERED: BACI/NEOMYCIN/POLY OINT 15GM TOP ONE (05:08)
--- NOTE | 2021-12-02 05:13 | ER ---
Nurse's Notes [facility] Name: Gavin Polo Jr Age: 66 yrs Sex: Male : 1955 Arrival Date: 12/02/2021 Time: 04:29 Bed 5 Private MD: Diagnosis: Encounter for surgical aftercare following surgery on the skin and subcutaneous tissue Presentation: 12/02 04:36 Chief complaint: Patient states: he had a skin cancer removed from his face last bb and tonight he woke up from sleep with blood all over the place. Coronavirus screen: At this time, the client does not indicate any symptoms associated with coronavirus-19. Ebola Screen: No symptoms or risks identified at this time. Initial Sepsis Screen: Does the patient meet any 2 criteria? No. Patient's initial sepsis screen is negative. Does the patient have a suspected source of infection? No. Patient's initial sepsis screen is negative. Risk Assessment: Do you want to hurt yourself or someone else? Patient reports no desire to harm self or others. Onset of symptoms was December 02, 2021. 04:36 Method Of Arrival: Ambulatory bb 04:36 Acuity: NICK 4 bb Historical: - Allergies: 04:38 No Known Allergies; bb - Home Meds: 04:38 armodafinil 50 mg daily Oral [Active]; aspirin 81 mg Oral tab [Active]; benazepril 10 bb mg Oral tab once daily [Active]; bupropion HCl 300 mg Oral Tb24 once daily [Active]; escitalopram oxalate 20 mg Oral tab once daily [Active]; gabapentin 300 mg Oral cap 1 cap 3 times per day [Active]; naltrexone 50 mg Oral tab 1 tab once daily [Active]; Protonix 40 mg Oral TbEC 1 tab once daily [Active]; - PMHx: 04:38 Anxiety; Atrial valve stenosis; barrots; central tremor; etoh abuse; GERD; Hypertension;bb - PSHx: 04:38 heart valve replacement; bb - Immunization history:: Moderna x 2. - Social history:: Smoking status: Patient denies any tobacco usage or history of. - Family history:: not pertinent. Screenin:50 Abuse screen: Denies threats or abuse. Nutritional screening: No deficits noted. ke1 Tuberculosis screening: No symptoms or risk factors identified. Fall Risk None identified. Assessment: 04:45 General: Appears in no apparent distress. Behavior is cooperative, appropriate for age. ke1 Pain: Denies pain. Neuro: Level of Consciousness is awake, alert, Oriented to person, place, time, situation. Respiratory: Respiratory effort is Respiratory pattern is regular, symmetrical. GI: Abdomen is round non-distended, obese. Derm: skin cancer round spot on right arm + Post surgery on left side of face for skin cancer, surgery site cover with dressing. 04:52 Derm: Reports bleeding at home from surgery site. No bleeding at this time. ke1 Vital Signs: 04:36 BP 114 / 72; Pulse 84; Resp 18 S; Temp 98.4(O); Pulse Ox 97% on R/A; Weight 94.35 kg bb (R); Height 5 ft. 8 in. (172.72 cm) (R); Pain 0/10; 04:36 Body Mass Index 31.63 (94.35 kg, 172.72 cm) bb [place] Coma Score: 05:02 Eye Response: spontaneous(4). Verbal Response: oriented(5). Motor Response: obeys freedom commands(6). Total: 15. 05:07 Eye Response: spontaneous(4). Verbal Response: oriented(5). Motor Response: obeys freedom commands(6). Total: 15. ED Course: 04:29 Patient arrived in ED. as 04:30 Britton Laurent MD is Attending Physician. freedom 04:32 Grayson Carrion RN is Primary Nurse. ke1 04:37 Triage completed. bb 04:38 Arm band placed on Patient placed in an exam room, on a stretcher, on pulse oximetry. bb 04:50 Patient has correct armband on for positive identification. Call light in reach. ke1 05:11 Dressings: Band aid x 1 left cheek neosporin cream + dressing applied. ke1 Administered Medications: 05:05 Drug: Neosporin (lklzxxgm-obwkbdnjee-wntqbyqlk) Ointment 1 application {Note: left ke1 cheek.} Route: Topical; Site: face; Outcome: 05:12 Discharge ordered by . freedom 05:19 Patient left the ED. ke1 Signatures: Britton Laurent MD MD cha Martinez, Amelia as Ballard, Brenda, RN RN bb Ebrottie, Kouassi, RN RN ke1
--- NOTE | 2021-12-02 05:13 | EDPHYS ---
Physician Documentation [facility] Name: Gavin Polo Jr Age: 66 yrs Sex: Male : 1955 Arrival Date: 12/02/2021 Time: 04:29 Bed 5 Private MD: ED Physician Britton Laurent HPI: 12/02 05:02 This 66 yrs old Male presents to ER via Ambulatory with complaints of Post freedom Surgical Bleeding. 05:02 The patient or guardian reports a laceration, clean, pain. The complaints affect the freedom left cheek. Context of injury: The problem was sustained at home, resulted from a direct blow, scratched in sleep. Onset: The symptoms/episode began/occurred just prior to arrival, this morning. Associated signs and symptoms: The patient has no apparent associated signs or symptoms. Severity of symptoms: At their worst the symptoms were mild, in the emergency department the symptoms have improved, moderately. The patient has not experienced similar symptoms in the past. Historical: - Allergies: 04:38 No Known Allergies; bb - Home Meds: 04:38 armodafinil 50 mg daily Oral [Active]; aspirin 81 mg Oral tab [Active]; benazepril 10 bb mg Oral tab once daily [Active]; bupropion HCl 300 mg Oral Tb24 once daily [Active]; escitalopram oxalate 20 mg Oral tab once daily [Active]; gabapentin 300 mg Oral cap 1 cap 3 times per day [Active]; naltrexone 50 mg Oral tab 1 tab once daily [Active]; Protonix 40 mg Oral TbEC 1 tab once daily [Active]; - PMHx: 04:38 Anxiety; Atrial valve stenosis; barrots; central tremor; etoh abuse; GERD; Hypertension;bb - PSHx: 04:38 heart valve replacement; bb - Immunization history:: Moderna x 2. - Social history:: Smoking status: Patient denies any tobacco usage or history of. - Family history:: not pertinent. ROS: 05:02 Constitutional: Negative for fever, chills, and weight loss, Eyes: Negative for injury, freedom pain, redness, and discharge, ENT: Negative for injury, pain, and discharge, Neck: Negative for injury, pain, and swelling, Cardiovascular: Negative for chest pain, palpitations, and edema, Respiratory: Negative for shortness of breath, cough, wheezing, and pleuritic chest pain, Abdomen/GI: Negative for abdominal pain, nausea, vomiting, diarrhea, and constipation, Back: Negative for injury and pain, : Negative for injury, bleeding, discharge, and swelling, MS/Extremity: Negative for injury and deformity, Neuro: Negative for headache, weakness, numbness, tingling, and seizure, Psych: Negative for depression, anxiety, suicide ideation, homicidal ideation, and hallucinations, Allergy/Immunology: Negative for hives, rash, and allergies, Endocrine: Negative for neck swelling, polydipsia, polyuria, polyphagia, and marked weight changes, Hematologic/Lymphatic: Negative for swollen nodes, abnormal bleeding, and unusual bruising. 05:02 Skin: Positive for swelling, ulceration. Exam: 05:02 Constitutional: This is a well developed, well nourished patient who is awake, alert, freedom and in no acute distress. Head/Face: Normocephalic, atraumatic. Eyes: Pupils equal round and reactive to light, extra-ocular motions intact. Lids and lashes normal. Conjunctiva and sclera are non-icteric and not injected. Cornea within normal limits. Periorbital areas with no swelling, redness, or edema. ENT: Nares patent. No nasal discharge, no septal abnormalities noted. Tympanic membranes are normal and external auditory canals are clear. Oropharynx with no redness, swelling, or masses, exudates, or evidence of obstruction, uvula midline. Mucous membranes moist. Neck: Trachea midline, no thyromegaly or masses palpated, and no cervical lymphadenopathy. Supple, full range of motion without nuchal rigidity, or vertebral point tenderness. No Meningismus. Chest/axilla: Normal chest wall appearance and motion. Nontender with no deformity. No lesions are appreciated. Cardiovascular: Regular rate and rhythm with a normal S1 and S2. No gallops, murmurs, or rubs. Normal PMI, no JVD. No pulse deficits. Respiratory: Lungs have equal breath sounds bilaterally, clear to auscultation and percussion. No rales, rhonchi or wheezes noted. No increased work of breathing, no retractions or nasal flaring. Abdomen/GI: Soft, non-tender, with normal bowel sounds. No distension or tympany. No guarding or rebound. No evidence of tenderness throughout. Back: No spinal tenderness. No costovertebral tenderness. Full range of motion. Male : Normal genitalia with no discharge or lesions. MS/ Extremity: Pulses equal, no cyanosis. Neurovascular intact. Full, normal range of motion. Neuro: Awake and alert, GCS 15, oriented to person, place, time, and situation. Cranial nerves II-XII grossly intact. Motor strength 5/5 in all extremities. Sensory grossly intact. Cerebellar exam normal. Normal gait. Psych: Awake, alert, with orientation to person, place and time. Behavior, mood, and affect are within normal limits. 05:02 Skin: lesion(s), noted, and can be described as bleeding, bleeding stopped. Vital Signs: 04:36 BP 114 / 72; Pulse 84; Resp 18 S; Temp 98.4(O); Pulse Ox 97% on R/A; Weight 94.35 kg bb (R); Height 5 ft. 8 in. (172.72 cm) (R); Pain 0/10; 04:36 Body Mass Index 31.63 (94.35 kg, 172.72 cm) bb [place] Coma Score: 05:02 Eye Response: spontaneous(4). Verbal Response: oriented(5). Motor Response: obeys freedom commands(6). Total: 15. 05:07 Eye Response: spontaneous(4). Verbal Response: oriented(5). Motor Response: obeys freedom commands(6). Total: 15. MDM: 04:30 Patient medically screened. freedom 05:07 Data reviewed: vital signs, nurses notes. 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 rate is 84 beats/min. Counseling: I had a detailed discussion with the patient and/or guardian regarding: the historical points, exam findings, and any diagnostic results supporting the discharge/admit diagnosis, the presence of at least one elevated blood pressure reading (>120/80) during this emergency department visit. 12/02 05:02 Order name: Wound dressing; Complete Time: 05:15 freedom Administered Medications: 05:05 Drug: Neosporin (rhottqgq-bzzklntrzj-xhjphyglf) Ointment 1 application {Note: left ke1 cheek.} Route: Topical; Site: face; Disposition Summary: 12/02/21 05:12 Discharge Ordered Location: Home freedom Problem: new freedom Symptoms: have improved freedom Condition: Stable freedom Diagnosis - Encounter for surgical aftercare following surgery on the skin and subcutaneous freedom tissue Followup: freedom - With: Private Physician - When: 2 - 3 days - Reason: Continuance of care Discharge Instructions: - Discharge Summary Sheet freedom - Incision Care, Adult freedom - How to Minimize Scarring After Surgery freedom Forms: - Medication Reconciliation Form freedom - Thank You Letter freedom - Antibiotic Education freedom - Prescription Opioid Use freedom Signatures: Britton Laurent MD MD cha Ballard, Brenda RN RN bb Grayson Carrion RN RN ke1
[2021-12-02 05:23] VITALS: BP 114/72; TEMP 98.4; O2SAT 97
== END 2021-12-02 05:19 | disposition home or self-care (01) ==
LOC: ER 04:27
DX: Z48.817 Encounter for surgical aftercare following surgery on the skin and subcutaneous tissue (principal); I10 Essential (primary) hypertension; F41.9 Anxiety disorder, unspecified; Z95.4 Presence of other heart-valve replacement; Z79.82 Long term (current) use of aspirin
CPT/HCPCS: 99283

== ENCOUNTER 2021-12-04 14:03 | Emergency (ER) | payer OTHER ==
--- OUTSIDE RECORDS SUMMARY | 2021-12-04 14:08 | XMS REPORT | Continuity of Care Document ---
:1955 Author Organization [facility] t Address [address] [place] [address] Care Team Providers Name Role Phone KIMANI RUTHERFORD JR Primary Care Physician Unavailable Caroline Rutherford Attending Clinician Unavailable KATHERINE MURPHY Attending Clinician Unavailable KRISTI Attending Clinician Unavailable DEDE TAN Attending Clinician Unavailable STANLEY DELGADO Attending Clinician Unavailable Amanda Taylor MD Attending Clinician Colin KELLY Attending Clinician Ramsey KELLY Attending Clinician Sachi Capmos MD Attending Clinician SACHI CAMPOS Attending Clinician Unavailable SACHI CAMPOS Attending Clinician Unavailable Doctor Unassigned, Name Attending Clinician Unavailable KATHERINE MURPHY Admitting Clinician Unavailable DEDE TAN Admitting Clinician Unavailable Ramsey KELLY Admitting Clinician STANLEY DELGADO Admitting Clinician Unavailable Payers Payer Name Policy Type Policy Number Effective Date Expiration Date Amanda koo MEDICARE PART A [id number] 2020 2024 AND B 00:00:00 00:00:00 [facility] [id number] 00:00:00 [employer] O POS [id number] 0318-01-01 QPOS 00:00:00 Problems Condition Condition Condition Status Onset Resolution Last Treating Co mments Source Name Details Category Date Date Treatment Clinician Date Obesity Obesity Disease Active 2019-06 Univers (BMI (BMI 2-11 ity of 30-39.9) 30-39.9) 00:00: [place] [facility] Hypertensi Hypertensi Disease Active 2019-06 U nivers on on 2-11 ity of 00:00: [place] [facility] Alcohol Alcohol Disease Active 2019-06 Univers withdrawal withdrawal 2-10 it y of 00:00: [place] [id number] Medical Branch Aortic Aortic Disease Active 2018-06 Univers stenosis stenosis 0-29 ity of 00:00: [place] [facility] BCC (basal BCC (basal Disease Active U nivers cell cell 6- ity of carcinoma) carcinoma) 00:00: [place] , face , face 00 [facility] Allergies, Adverse Reactions, Alerts Allergy Allergy Status Severity Reaction(s) Onset Inactive Treating Comm ents Source Name Type Date Date Clinician POLLEN Allergy Active 2018-06 [facility] EXTRACTS 0-24 00:00: 00 NO KNOWN Drug Active Univers ALLERGIE Class ity of S [facility] Social History Social Habit Start Date Stop Date Quantity Comments Source Exposure to Not sure [place] of SARS-CoV-2 (event) [facility] Sex Assigned At Universit y of [facility] Tobacco use and 2020-05-22 2020-05-22 Former user Universi ty of exposure 00:00:00 00:00:00 [place] [facility] History SDDC 2020-05-22 2020-05-22 5 University o f Alcohol Frequency 00:00:00 00:00:00 [facility] edical Branch History SDOH 2020-05-22 2020-05-22 5 University o f Alcohol Std Drinks 00:00:00 00:00:00 [place] [facility] History SDDC 2020-05-22 2020-05-22 5 University o f Alcohol Binge 00:00:00 00:00:00 [facility] al Branch History SDDC Social 2020-05-22 2020-05-22 2 Unive rsity of Connections Phone 00:00:00 00:00:00 [facility] edical Branch History SDDC Social 2020-05-22 2020-05-22 98 Unive rsity of Connections Get 00:00:00 00:00:00 [place] [facility] Together Branch History SDOH Social 2020-05-22 2020-05-22 98 Unive rsity of Connections Holiness 00:00:00 00:00:00 [place] [facility] History SDOH [...] University o f Physical Activity 00:00:00 00:00:00 [place] [facility] MPS Branch History SDOH Stress [...] University o f Transport Med 00:00:00 00:00:00 [place] [facility] History SDOH 2020-05-22 2020-05-22 2 University o f Transport Non-Med 00:00:00 00:00:00 [place] [facility] Alcohol Comment 2020-05-22 2020-05-22 drinks one Universit y of 00:00:00 00:00:00 gallon in two [place] [facility] al days of whiskey Branch Alcohol intake 2020-05-22 2020-05-22 Current drinker Unive rsity of 00:00:00 00:00:00 of alcohol [place] [facility] (finding) Branch Smoking Status Start Date Stop Date Source Never smoker [facility] [place] [facility] Medications Ordered Filled Start Stop Current Ordering Indication Dosage Frequency Signature Comments Components Source Medication Medication Date Date Medication? Clinician (SIG) Name Name mirtazapine 2019-06 Yes 15mg 15 mg, Univ ers (REMERON) 2-12 Oral, QHS, ity of tablet 15 03:00: First dose [place] mg 00 on Mon [facility] 05/22/20 Branch at 2100, Until Discontinu ed, Routine atorvastati 2019-06 Yes 20mg 20 mg, Univ ers n (LIPITOR) 2-12 Oral, QHS, it y of tablet 20 03:00: First dose [place] mg 00 on Mon [facility] 05/22/20 Branch at 2100, Until Discontinu ed, Routine acetylcyst/ 2019-06 Yes .314mg Take 0.314 Univers [id number]/l 2-12 mg by ity of evomefol 00:11: mouth. [place] (CEREFOLIN 31 Medical NAC ORAL) Branch aspirin 2019-06 Yes 81mg Take 81 mg Univ ers (ASPIR-LOW) 2-12 by mouth ity of 81 mg EC 00:11: daily. [place] tablet Medical Branch mirtazapine 2019-06 Yes 15mg Take 15 mg Univers 15 mg 2-12 by mouth ity of tablet 00:11: at [place] [address] bedtime. Medical Branch metoprolol 2019-06 Yes 12.5mg Take 12.5 Univers tartrate 25 2-12 mg by ity of mg tablet 00:11: mouth 2 [place] [address] (two) Medical times Branch daily. atorvastati 2019-06 Yes 20mg Take 20 mg Univers n 20 mg 2-12 by mouth ity of tablet 00:11: at [place] [address] bedtime. Medical Branch thiamine 2019-06 Yes [id number] 100mg Take 1 U nivers 100 mg -12 tablet by ity of tablet 00:00: mouth [place] 00 daily. Medical Branch foLIC acid 2019-06- No [id number] 1mg Take 1 Univers 1 mg tablet 07-24 tablet by it y of 00:00: 05:59 mouth [place] 00 :00 daily for Medical 30 days. Branch magnesium 2019-06- No [id number] 800mg Take 800 Univers oxide 420 07-24 mg by ity of mg Tab 00:00: 05:59 mouth [place] 00 :00 daily for Medical 30 days. Branch multivitami 2019-06- No [id number] 1{tbl} Take 1 Univers n tablet 07-24 [...] [place] mg 00 :00 oxazepam Medical (SERAX) [place] capsule 15 mg Signed Summary: 15 mg, Oral, Q6H, 4 doses, First dose on Mon05/22/20 at 1200, Last dose on 05/23/20 at 0600, Routine [Order 1 End] [Order 2 Start] Name: oxazepam (SERAX) capsule 15 mg Signed Summary: 15 mg, Oral, Q8H, 3 doses, First dose on 05/23/20 at 1400, Last dose on 12/13/20 at 0600, Routine [Order 2 End] [Order [...] Branch at 0800, Until Discontinu ed, Routine
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 [place] 39 :00 [facility] Branch traZODone 2019-06 Yes 50mg 50 mg, Univer s (DESYREL) 2 Oral, ity of tablet 50 12:57: QHSPRN, [place] mg 25 Starting [facility] 05/22/20 at 0657, Until Discontinu ed, Routine, Insomnia oxazepam 2019-06 Yes 15mg 15 mg, Univers (SERAX) 07-23 Oral, ity of capsule 15 12:45: Q4HPRN, [place] 54 Starting [facility] 05/22/20 at 0645, Until Discontinu ed, Routine, Only while awake for DBP equal to or greater than 100, HR equal to or greater than 100. traMADoL 2019-06 2020- No 50mg 50 mg, Univer s (ULTRAM) 07-23 Oral, ity of tablet 50 08:52: 08:51 Q8HPRN, [place] mg [place] :28 Starting [facility] 05/22/20 at 0252, Until 05/24/20 at 0251, Routine, Pain (scale 4-6) acetaminoph 2019-06 Yes 650mg 650 mg, Un jose eduardo en 07-23 Oral, ity of (TYLENOL) 08:52: Q6HPRN, [place] tablet 650 25 Starting Medic al mg [...] 1 [place] mg 00 :00 dose, [facility] 05/21/20 Branch at 2045, STAT oxazepam 15 2019-06 2020- No [id number] Take 1 Univers mg capsule 07-23 capsule by it y of 00:00: 05:59 mouth [place] 00 :00 every 6 Medical (six) Branch hours for 2 days, THEN 1 capsule 3 (three) times daily for 1 day, THEN 1 capsule 2 (two) times daily for 1 day. TOPIRAMATE 0 Yes [id number] TAKE 1 Univers 25 mg 5-29 TABLET BY ity of tablet 00:00: MOUTH [place] 00 TWICE A Medical DAY Branch TOPIRAMATE 0 Yes [id number] TAKE 1 Univers 25 mg 5-29 TABLET BY ity of tablet 00:00: MOUTH [place] 00 TWICE A Medical DAY Branch TOPIRAMATE 2020-0 Yes [id number] TAKE 1 Univers 25 mg 5-29 TABLET BY ity of tablet 00:00: MOUTH 00 TWICE A Medical DAY Branch TOPIRAMATE 2020-0 Yes [id number] TAKE 1 Univers 25 mg 5-07 TABLET BY ity of tablet 00:00: MOUTH 00 TWICE A Medical DAY Branch TOPIRAMATE 2020-0 2020- No [id number] TAKE 1 Univers 25 mg 5-07 05-29 TABLET BY ity of tablet 00:00: 00:00 MOUTH [place] 00 :00 TWICE A Medical DAY Branch TOPIRAMATE 2020-0 Yes [id number] TAKE 1 Univers 25 mg 4-06 TABLET BY ity of tablet 00:00: MOUTH 00 TWICE A Medical DAY Branch TOPIRAMATE 2020-0 2020- No [id number] TAKE 1 Univers 25 mg 4-06 05-07 TABLET BY ity of tablet 00:00: 00:00 MOUTH [place] 00 :00 TWICE A Medical DAY Branch topiramate 2020-0 Yes [id number] 50mg Take 1 Univers 50 mg 2-05 tablet by ity of tablet 00:00: mouth (two) Medical times Branch daily. topiramate 2020-0 Yes [id number] 50mg Take 1 Univers 50 mg 2-05 tablet by ity of tablet 00:00: [facility] (two) Medical times Branch daily. topiramate 2020-0 Yes [id number] 50mg Take 1 Univers 50 mg 2-05 tablet by ity of tablet 00:00: [facility] [place] (two) Medical times Branch daily. topiramate 2020-0 Yes [id number] 50mg Take 1 Univers 50 mg 2-05 tablet by ity of tablet 00:00: mouth [place] (two) Medical times Branch daily. topiramate 2020-0 Yes [id number] 50mg Take 1 Univers 50 mg 2-05 tablet by ity of tablet 00:00: mouth 2 [place] 00 (two) Medical times Branch daily. topiramate 2020-0 Yes [id number] 50mg Take 1 Univers 50 mg 2-05 tablet by ity of tablet 00:00: mouth 2 [place] (two) Medical times Branch daily. topiramate 2020-0 Yes [id number] 50mg Take 1 Univers 50 mg 2-05 tablet by ity of tablet 00:00: mouth 2 [place] 00 (two) Medical times Branch daily. topiramate 2018-06 2020- No [id number] 25mg Take 1 Univers 25 mg 2-16 02-05 tablet by ity of tablet 00:00: 00:00 mouth 2 [place] 00 :00 (two) Medical times [place] daily. pantoprazol 2018-06 Yes 40mg Take 40 mg Univers e 40 mg EC 0-28 by mouth ity o f tablet 17:19: daily. [address] acetylcyst/ 2018-06 Yes .314mg Take 0.314 Univers [id number]/l 0-28 mg by ity of evomefol 17:19: mouth. [address] ORAL) Branch pantoprazol 2018-06 Yes 40mg Take 40 mg Univers e 40 mg EC 0-28 by mouth ity o f tablet 17:19: daily. [address] acetylcyst/ 2018-06 Yes .314mg Take 0.314 Univers zdlblpJ32/l 0-28 mg by ity of evomefol 17:19: mouth. [place] ([address] ORAL) Branch pantoprazol 2018-06 Yes 40mg Take 40 mg Univers e 40 mg EC 0-28 by mouth ity o f tablet 17:19: daily. [address] acetylcyst/ 2018-06 Yes .314mg Take 0.314 Univers abcrhiH45/l 0-28 mg by ity of evomefol 17:19: mouth. [address] ORAL) Branch pantoprazol 2018-06 Yes 40mg Take 40 mg Univers e 40 mg EC 0-28 by mouth ity o f tablet 17:19: daily. [address] acetylcyst/ 2018-06 Yes .314mg Take 0.314 Univers rpmmjzU84/l 0-28 mg by ity of evomefol 17:19: mouth. [address] ORAL) Branch pantoprazol 2018-06 Yes 40mg Take 40 mg Univers e 40 mg EC 0-28 by mouth ity o f tablet 17:19: daily. [address] acetylcyst/ 2018-06 Yes .314mg Take 0.314 Univers mrjvakY03/l 0-28 mg by ity of evomefol 17:19: mouth. [place] ([facility] NAC ORAL) Branch pantoprazol 2018-06 Yes 40mg Take 40 mg Univers e 40 mg EC 0-28 by mouth ity o f tablet 17:19: daily. [address] acetylcyst/ 2018-06 Yes .314mg Take 0.314 Univers [id number]/l 0-28 mg by ity of evomefol 17:19: mouth. [address] ORAL) [place] omeprazole 2018-06 Yes 40mg Take 40 mg U nivers 40 mg 0-14 by mouth ity of capsule 00:00: daily. [address] omeprazole 2018-06 Yes 40mg Take 40 mg U nivers 40 mg 0-14 by mouth ity of capsule 00:00: daily. [address] omeprazole 2018-06 Yes 40mg Take 40 mg U nivers 40 mg 0-14 by mouth ity of capsule 00:00: daily. [address] omeprazole 2018-06 Yes 40mg Take 40 mg U nivers 40 mg 0-14 by mouth ity of capsule 00:00: daily. [address] omeprazole 2018-06 Yes 40mg Take 40 mg U nivers 40 mg 0-14 by mouth ity of capsule 00:00: daily. [address] omeprazole 2018-06 Yes 40mg Take 40 mg U nivers 40 mg 0-14 by mouth ity of capsule 00:00: daily. [address] omeprazole 2018-06 Yes 40mg Take 40 mg U nivers 40 mg 0-14 by mouth ity of capsule 00:00: daily. [address] traZODone Yes TAKE 1/2 Univ ers 50 mg 9-23 TO 1 ity of tablet 00:00: TABLET BY [address] EVERY DAY [place] AT BEDTIME FOR SLEEP traZODone Yes TAKE 1/2 Univ ers 50 mg 9-23 TO 1 ity of tablet 00:00: TABLET BY [address] EVERY DAY [place] AT BEDTIME FOR SLEEP traZODone Yes TAKE 1/2 Univ ers 50 mg 9-23 TO 1 ity of tablet 00:00: TABLET BY [address] EVERY DAY [place] AT BEDTIME FOR SLEEP traZODone Yes TAKE 1/2 Univ ers 50 mg 9-23 TO 1 ity of tablet 00:00: TABLET BY [place] MOUTH Medical EVERY DAY Branch AT BEDTIME FOR SLEEP traZODone Yes TAKE 1/2 Univ ers 50 mg - TO 1 ity of tablet 00:00: TABLET BY [place] MOUTH Medical EVERY DAY Branch AT BEDTIME FOR SLEEP traZODone Yes TAKE 1/2 Univ ers 50 mg 03-04 TO 1 ity of tablet 00:00: TABLET BY [place] MOUTH Medical EVERY DAY Branch AT BEDTIME FOR SLEEP traZODone Yes TAKE 1/2 Univ ers 50 mg 03-04 TO 1 ity of tablet 00:00: TABLET BY [place] MOUTH Medical EVERY DAY Branch AT BEDTIME FOR SLEEP escitalopra Yes 20mg Take 20 mg Univers m oxalate 9-21 by mouth. ity o f 20 mg 00:00: [place] tablet [facility] Branch escitalopra Yes 20mg Take 20 mg Univers m oxalate 9-21 by mouth. ity o f 20 mg 00:00: [place] tablet [facility] Branch escitalopra Yes 20mg Take 20 mg Univers m oxalate 9-21 by mouth. ity o f 20 mg 00:00: [place] tablet [facility] Branch escitalopra Yes 20mg Take 20 mg Univers m oxalate 9-21 by mouth. ity o f 20 mg 00:00: [place] tablet [facility] escitalopra Yes 20mg Take 20 mg Univers m oxalate 9-21 by mouth. ity o f 20 mg 00:00: [place] tablet [facility] escitalopra Yes 20mg Take 20 mg Univers m oxalate 9-21 by mouth. ity o f 20 mg 00:00: [place] tablet [facility] Branch escitalopra Yes 20mg Take 20 mg Univers m oxalate 9-21 by mouth. ity o f 20 mg 00:00: [place] tablet [facility] TOPIRAMATE 2018-0 2020- No [id number] TAKE 1 Univers 25 mg 6-12 02-05 TABLET BY ity of tablet 00:00: 00:00 MOUTH [place] 00 :00 TWICE A Medical DAY Branch vortioxetin Yes Take 1 Univ ers e 5-21 TAB-CAP/M2 ity of (TRINTELLIX 15:01: by mouth [place] ) 20 mg Tab 33 daily. Medica l Branch pantoprazol 2019- Yes 40mg Take 40 mg Univers e 40 mg EC 5-21 by mouth ity o f tablet 15:01: daily. [place] [address] Medical Branch mirtazapine 2019-0 Yes 15mg Take 15 mg Univers 15 mg 5-21 by mouth ity of tablet 15:01: at [place] [address] bedtime. Medical Branch eszopiclone Yes TAKE 1 Univ ers 1 mg tablet 5-08 TABLET BY ity of 00:00: MOUTH [place] 00 DAILY Medical IMMEDIATEL Branch Y BEFORE BEDTIME eszopiclone Yes TAKE 1 Univ ers 1 mg tablet 5-08 TABLET BY ity of 00:00: MOUTH [place] 00 DAILY Medical IMMEDIATEL Branch Y BEFORE BEDTIME eszopiclone Yes TAKE 1 Univ ers 1 mg tablet 5-08 TABLET BY ity of 00:00: [facility] 00 DAILY Medical IMMEDIATEL Branch Y BEFORE BEDTIME eszopiclone Yes TAKE 1 Univ ers 1 mg tablet 5-08 TABLET BY ity of 00:00: [facility] 00 DAILY Medical IMMEDIATEL Branch Y BEFORE BEDTIME eszopiclone Yes TAKE 1 Univ ers 1 mg tablet 5-08 TABLET BY ity of 00:00: MOUTH [place] 00 DAILY Medical IMMEDIATEL Branch Y BEFORE BEDTIME eszopiclone Yes TAKE 1 Univ ers 1 mg tablet 5-08 TABLET BY ity of 00:00: MOUTH [place] 00 DAILY Medical IMMEDIATEL Branch Y BEFORE BEDTIME eszopiclone Yes TAKE 1 Univ ers 1 mg tablet 5-08 TABLET BY ity of 00:00: [facility] 00 DAILY Medical IMMEDIATEL Branch Y BEFORE [...] tablet 00 EVERY DAY Medical IN THE [place] MORNING buPROPion 0 Yes TAKE 1 Univer s XL 300 mg 4-25 TABLET BY ity o f 24 hr 00:00: MOUTH [place] tablet 00 EVERY DAY Medical IN THE [place] MORNING buPROPion 0 Yes TAKE 1 Univer s XL 300 mg 4-25 TABLET BY ity o f 24 hr 00:00: MOUTH [place] tablet 00 EVERY DAY Medical IN THE [place] MORNING buPROPion 0 Yes TAKE 1 Univer s XL 300 mg 4-25 TABLET BY ity o f 24 hr 00:00: MOUTH [place] tablet 00 EVERY DAY Medical IN THE [place] MORNING buPROPion Yes TAKE 1 Univer s XL 300 mg 4-25 TABLET BY ity o f 24 hr 00:00: MOUTH [place] tablet 00 EVERY DAY Medical IN THE [place] MORNING buPROPion 0 Yes TAKE 1 Univer s XL 300 mg 4-25 TABLET BY ity o f 24 hr 00:00: MOUTH [place] tablet 00 EVERY DAY Medical IN THE [place] MORNING escitalopra 0 Yes 10mg Take 10 mg Univers m oxalate 5-25 by mouth ity of 10 mg 00:00: daily. [facility] benazepril 0 Yes 10mg Take 10 mg U nivers 10 mg 5-03 by mouth ity of tablet 00:00: daily. [place] [facility] benazepril 0 Yes 10mg Take 10 mg U nivers 10 mg 5-03 by mouth ity of tablet 00:00: daily. [facility] benazepril 2017-0 Yes 10mg Take 10 mg U nivers 10 mg 5-03 by mouth ity of tablet 00:00: daily. [facility] benazepril 2017-0 Yes 10mg Take 10 mg U nivers 10 mg 5-03 by mouth ity of tablet 00:00: daily. [facility] benazepril 2018-0 Yes 10mg Take 10 mg U nivers 10 mg 5-03 by mouth ity of tablet 00:00: daily. [facility] benazepril 2017-0 Yes 10mg Take 10 mg U nivers 10 mg 5-03 by mouth ity of tablet 00:00: daily. Medical Branch benazepril 2018-0 Yes 10mg Take 10 mg U nivers 10 mg 5-03 by mouth ity of tablet 00:00: daily. [place] [facility] benazepril 2018-0 Yes 10mg Take 10 mg U nivers 10 mg 5-03 by mouth ity of tablet 00:00: daily. [place] [facility] amLODIPine 2018-0 Yes 10mg Take 10 mg U nivers 10 mg 4-02 by mouth ity of tablet 00:00: daily. [place] [facility] amLODIPine 2018-0 Yes 10mg Take 10 mg U nivers 10 mg 4-02 by mouth ity of tablet 00:00: daily. [place] [facility] amLODIPine 2018-0 Yes 10mg Take 10 mg U nivers 10 mg 4-02 by mouth ity of tablet 00:00: daily. [place] [facility] amLODIPine 2018-0 Yes 10mg Take 10 mg U nivers 10 mg 4-02 by mouth ity of tablet 00:00: daily. [place] [facility] amLODIPine 2018-0 Yes 10mg Take 10 mg U nivers 10 mg 4-02 by mouth ity of tablet 00:00: daily. [place] [facility] amLODIPine 2018-0 Yes 10mg Take 10 mg U nivers 10 mg 4-02 by mouth ity of tablet 00:00: daily. [place] [facility] amLODIPine 2018-0 Yes 10mg Take 10 mg U nivers 10 mg 4-02 by mouth ity of tablet 00:00: daily. [place] [facility] amLODIPine 2018-0 2020- No 10mg Take 10 mg Univers 10 mg 4-02 12-11 by mouth ity of tablet 00:00: 00:00 daily. [place] 00 : [facility] Immunizations Ordered Filled Immunization Date Status Comments [facility] e Immunization Name Name TDAP 2018-03-30 Completed University of 00:00:00 [facility] Zoster Vaccine 2018-03-30 Completed University of Recombinant 00:00:00 [facility] Zoster Vaccine 2017-11-24 Completed University of Recombinant 00:00:00 [facility] Vital Signs Vital Name Observation Time Observation Value Comments Source HEIGHT 2021-05-12 11:45:00 172.7 cm WEIGHT 2021-05-12 11:45:00 92.534 kg Systolic blood 2020-05-22 22:15:00 130 mm[Hg] Univer sity of pressure [place] [facility] Diastolic blood 2020-05-22 22:15:00 74 mm[Hg] Unive rsity of pressure [facility] Heart rate 2020-05-22 22:15:00 84 /min Universi ty of [facility] Body temperature 2020-05-22 22:15:00 37.11 Rose Univ ersity of [facility] Respiratory rate 2020-05-22 22:15:00 20 /min Univ ersity of [facility] Oxygen saturation in 2020-05-22 22:15:00 96 /min University of Arterial blood by [facility] Pulse oximetry Branch Body weight 2020-05-22 01:11:00 95.255 kg Universi ty of [facility] BMI 2020-05-22 01:11:00 31.93 kg/m2 Universi ty of [facility] Systolic blood 2020-05-22 22:15:00 130 mm[Hg] Univer sity of pressure [facility] Diastolic blood 2020-05-22 22:15:00 74 mm[Hg] Unive rsity of pressure [facility] Heart rate 2020-05-22 22:15:00 84 /min Universi ty of [facility] Body temperature 2020-05-22 22:15:00 37.11 [facility] Respiratory rate 2020-05-22 22:15:00 20 /min Univ ersity of [facility] Oxygen saturation in 2020-05-22 22:15:00 96 /min University of Arterial blood by [facility] Pulse oximetry Branch Body weight 2020-05-22 01:11:00 95.255 kg Universi ty [facility] BMI 2020-05-22 01:11:00 31.93 kg/m2 Universi [facility] Procedures Procedure Date / Time Performing Clinician Source Performed MAGNESIUM 2020-05-22 18:34:00 Renée Mustafa [facility] VITAMIN B12, LEVEL 2020-05-22 18:34:00 Renée Mustafa [facility] COMP. METABOLIC PANEL 2020-05-22 18:34:00 Renée Mustafa [facility] ([id number]) Medical Branch ETHANOL 2020-05-22 18:34:00 Renée Mustafa [facility] CBC WITH DIFF 2020-05-22 18:34:00 Renée Mustafa [facility] PROTHROMBIN TIME / INR 2020-05-22 18:34:00 Renée Mustafa [facility] MAGNESIUM 2020-05-22 01:42:00 Girish Taylor [facility] TROPONIN I 2020-05-22 01:42:00 Girish Taylor [facility] COMP. METABOLIC PANEL 2020-05-22 01:42:[address] [facility] ([id number]) [facility] CBC WITH DIFF 2020-05-22 01:42:00 Girish Taylor [facility] COVID-19 (ID NOW RAPID 2020-05-22 01:42:00 Girish Taylor [facility] TESTING) Medical [place] COGNITIVE ASSESSMENT 2018-10-30 05:01:00 Doctor Unassigned, No [facility] Name [facility] Encounters Start End Encounter Admission Attending Care Care Encounter Source Date/Time Date/Time Type Type Clinicians Facility Department ID 2021-11-09 Outpatient [facility] [id number] [place] 13:05:57 [id number] [facility] 2021-11-01 Outpatient [facility] [id number] [place] 09:58:28 [id number] [facility] 2021-10-15 Outpatient [facility] [id number] [place] 16:27:49 [id number] [facility] 2021-09-27 Outpatient [facility] [id number] [place] 09:57:26 [id number] [facility] 2021-07-07 Outpatient [place], STLMLC STLC [id number] Common 13:39:02 Shaun [id number] [facility] 2021-07-07 Outpatient [place], STLMLC STLMLC [id number] Common 13:13:51 Shaun [id number] [facility] 2021-04-10 Emergency [facility] [id number] [facility] KIMBERLY MUELLER Surgery [id number] [facility] 08:07:25 [facility] 2021-11-11 2021-11-11 ambulatory STLMLC STLC [id number] Common 00:00:00 00:00:00 [facility] 2021-09-09 2021-09-09 Outpatient GALATI, [facility] [id number] [place] 00:00:00 00:00:00 BRAULIO [address] 2021-09-09 2021-09-09 Outpatient GALATI, [facility] [id number] 00:00:00 00:00:00 BRAULIO [address] 2021-09-09 2021-09-09 Outpatient GALATI, [facility] [id number] [place] 00:00:00 00:00:00 BRAULIO [address] 2021-09-09 2021-09-09 [facility] [facility] [id number] [address] 00:00:00 00:00:00 BRAULIO [address] 2021-09-09 2021-09-09 Outpatient GALATI, [facility] [id number] [address] 00:00:00 00:00:00 BRAULIO [address] 2021-07-21 2021-07-31 Inpatient Caroline TAN [facility] MED [id number] [facility] 07:58:00 12:37:00 BRINDA 2021-05-12 2021-05-12 Outpatient EL [facility] [id number] [facility] 12:05:02 23:59:00 2021-05-05 2021-05-05 ambulatory STLMLC ST[facility]C [id number] Common 00:00:00 00:00:00 [facility] 2021-05-04 2021-05-04 ambulatory STLMLC STLMLC [id number] Common 00:00:00 00:00:00 [facility] 2021-04-13 2021-04-13 Outpatient ROSMERY DELGADO, [facility] [id number] [facility] 00:00:00 00:00:00 LENCHO 2021-04-06 2021-04-06 Outpatient STLMLC STLMLC [id number] Common 00:00:00 00:00:00 [facility] 2021-04-06 2021-04-06 ambulatory STLMLC STLMLC [id number] Common 00:00:00 00:00:00 [facility] 2021-03-16 2021-03-16 Outpatient STLMLC STLMLC [id number] Common 00:00:00 00:00:00 [facility] 2021-03-16 2021-03-16 Outpatient STLMLC STLMLC [id number] Common 00:00:00 00:00:00 [facility] 2021-03-10 2021-03-10 Outpatient STLMLC STLMLC [id number] Common 00:00:00 00:00:00 [facility] 2021-03-09 2021-03-09 Outpatient STLMLC STLMLC [id number] Common 00:00:00 00:00:00 [facility] 2021-01-29 2021-01-29 Outpatient STLMLC STLMLC [id number] Common 00:00:00 00:00:00 [facility] 2021-01-29 2021-01-29 Outpatient STLMLC STLMLC [id number] Common 00:00:00 00:00:00 [facility] 2021-01-27 2021-01-27 Outpatient STLMLC STLMLC [id number] Common 00:00:00 00:00:00 [facility] 2021-01-27 2021-01-27 Outpatient STLMLC STLMLC [id number] Common 00:00:00 00:00:00 [facility] 2021-01-22 2021-01-22 Outpatient STLMLC STLMLC [id number] Common 00:00:00 00:00:00 [facility] 2021-01-21 2021-01-21 Outpatient STLMLC STLMLC [id number] Common 00:00:00 00:00:00 [facility] 2020-11-26 2020-11-26 Outpatient STLMLC STLMLC [id number] Common 00:00:00 00:00:00 [facility] 2020-11-20 2020-11-20 Outpatient STLMLC STLMLC [id number] Common 00:00:00 00:00:00 [facility] 2020-05-21 2020-05-22 Emergency Addie Tayloringris [facility] 1.2.840 .114 [id number] Univers 19:04:00 18:10:00 Hector Lyman 350.1.13.10 ity of Renée Mustafa [place] 4.2.7.2.686 [facility] [phone] [address] 2020-05-21 2020-05-22 Emergency Girish Taylor S [facility] 1.2.840 .114 [id number] 19:04:00 18:10:00 Hector Lyman 350.1.13.10 [place] 4.2.7.2.686 [place] [phone] [facility] 2019-12-01 2019-12-01 Refill Beth, [facility] 1.2.840.114 [id number] Univers 00:00:00 00:00:00 Kit Tsaiton 350.1.13.10 ity [place] [phone] [address] 2019-12-01 2019-12-01 Refill Beth, [facility] 1.2.840.114 [id number] 00:00:00 00:00:00 Kit Slade 350.1.13.10 [place] 4.2.7.2.686 Professio [phone] [address] 2019-11-08 2019-11-08 Reffabián Campos, [facility] 1.2.840.114 [id number] Univers 00:00:00 00:00:00 Kit Tsaiton 350.1.13.10 ity [place] [phone] [address] 2019-11-08 2019-11-08 Reffabián Campos, [facility] 1.2.840.114 [id number] 00:00:00 00:00:00 Kit Tsaiton 350.1.13.10 [place] 4.2.7.2.686 Professio [phone] [address] 2019-10-17 2019-10-17 Reffabián Campos, [facility] 1.2.840.114 [id number] Univers 00:00:00 00:00:00 Kit Tsaiton 350.1.13.10 ity [place] [phone] Ut [address] 2019-10-17 2019-10-17 [facility] 1.2.840.114 [id number] 00:00:00 00:00:00 Kit Slade 350.1.13.10 [place] 4.2.7.2.686 Professio [phone] [address] 2019-09-16 2019-09-16 [facility] 1.2.840.114 [id number] Univers 00:00:00 00:00:00 Kit Slade 350.1.13.10 it[place] [phone] [address] 2019-09-16 2019-09-16 [facility] 1.2.840.114 [id number] 00:00:00 00:00:00 Kit Slade 350.1.13.10 [place] 4.2.7.2.686 Professio [phone] [address] 2019-07-18 2019-07-18 [facility] 1.2.840.114 [id number] Univers 00:00:00 00:00:00 Kit Slade 350.1.13.10 it[place] [phone] [address] 2019-07-18 2019-07-18 [facility] 1.2.840.114 [id number] 00:00:00 00:00:00 Kit Slade 350.1.13.10 [place] 4.2.7.2.686 Professio [phone] [address] 2019-07-17 2019-07-17 [facility] 1.2.840.114 [id number] Univers 00:00:00 00:00:00 Kit Slade 350.1.13.10 [place] [phone] Ut [facility] 2019-07-17 2019-07-17 Telephone Beth [facility] 1.2.840.114 [id number] 00:00:00 00:00:00 Kit Sachi [place]ade 350.1.13.10 [place] 4.2.7.2.686 Professio [phone] [address] 2019-05-27 2019-05-27 Outpatient R KIT CAMPOS [facility] [id number] Univers 11:00:00 13:00:07 KIT CAMPOS ity of [facility] 2018-10-30 2018-10-30 Orders Doctor CHYNA 1.2.840.114 [id number] Univers 00:00:00 00:00:00 Only Unassigned, JANNET 350.1.13.10 ity of [facility] 4.2.7.2.686 Clarence as [phone] [address] 2018-10-30 2018-10-30 Orders Doctor CHYNA 1.2.840.114 [id number] 00:00:00 00:00:00 Only Unassigned, JANNET 350.1.13.10 [facility] 4.2.7.2.686 [phone] 009 Results Test Description Test Time Test Comments Results Result Comments Source VITAMIN B12, LEVEL 2020-05-22 23:44:00 Test Item Value Reference Range Interpretation Comme nts VIT B12 (test code = 5834665562) 580 pg/mL 240-930 BHAVANI (test code = BHAVANI) Biotin has been reported to cause a positive bias, interpret results relative to patient's use of biotin. Lab Interpretation (test code = Normal 25330-5) [facility] 20:05:00 Test Item Value Reference Range Interpretation Comments ALCOHOL (test code = <10 mg/dL 1079581931) BHAVANI (test code = BHAVANI) <10 Nkxhesmv15-917 Toxic>100 Depression of ART SALES CONSULTANT>400 Fatalities Reported [facility] WITH [id number] 19:47:00 Test Item Value Reference Range Interpretation [...] (test code = 58.4 fL 38.5-51.6 H 24014-4) RDW-CV (test code = 16.2 % 12.1-15.4 H 788-0) PLT (test code = See_Comment L [Automated 777-3) message] The sy stem which generated this result transmitted reference range : 150 - 328 10*3/ ?L. The reference r tk was not used to interpret this result as normal/abnormal . MPV (test code = 9.5 fL 9.8-13 L 66993-7) IPF % (test code = 2.9 % 1.2-10.7 Platelet count 3464702416) measured by fluorescence method. NRBC/100 WBC (test See_Comment [Automat ed code = 7081477804) message] The system which generated this result transmitted reference range : 0.0 - 10.0 /100 WBCs. The refer ence range was not u sed to interpret th is result as normal/abnormal . NRBC x10^3 (test code <0.01 See_Comment [Auto mated = 8588402933) message] The s ystem which generated this result transmitted reference range : 10*3/?L. The reference range was not used to interpret this result as normal/abnormal . GRAN MAT (NEUT) % 65.7 % (test code = 770-8) IMM GRAN % (test code 0.50 % = 2831037508) LYMPH % (test code = 23.6 % 736-9) MONO % (test code = 9.5 % 5905-5) EOS % (test code = 0.2 % 713-8) BASO % (test code = 0.5 % 706-2) GRAN MAT x10^3(ANC) 2.64 10*3/uL 1.99-6.95 (test code = 4045166828) IMM GRAN x10^3 (test <0.03 0-0.06 code = 2935640387) LYMPH x10^3 (test code 0.95 10*3/uL 1.09-3.23 L = 731-0) MONO x10^3 (test code 0.38 10*3/uL 0.36-1.02 = 742-7) EOS x10^3 (test code = <0.03 0.06-0.53 L 711-2) BASO x10^3 (test code <0.03 0.01-0.09 = 704-7) Lab Interpretation Abnormal (test code = 55981-6) [facility]. METABOLIC PANEL (68818)2020-05-22 19:39:00 Test Item Value Reference Range Interpretation Comments NA (test code = 134 mmol/L 135-145 L 2133776058) K (test code = 3.3 mmol/L 3.5-5 L 6924688615) CL (test code = 100 mmol/L 98-108 4556129457) CO2 TOTAL (test code = 28 mmol/L 23-31 1867306383) AGAP (test code = 2-16 4951667789) BUN (test code = 11 mg/dL 7-23 4582727768) GLUCOSE (test code = 124 mg/dL 70-110 H 4032347448) CREATININE (test code = 0.97 mg/dL 0.6-1.25 6451774003) TOTAL BILI (test code = 1.3 mg/dL 0.1-1.1 H 1381078939) CALCIUM (test code = 9.4 mg/dL 8.6-10.6 0830853088) T PROTEIN (test code = 7.0 g/dL 6.3-8.2 8636065176) ALBUMIN (test code = 4.0 g/dL 3.5-5 5719049505) ALK PHOS (test code = 85 U/L 34-122 5280493031) ALTv (test code = 30 U/L 5-50 1742-6) AST(SGOT) (test code = 68 U/L 13-40 H 9959732697) eGFR Calculation mL/min/1.73m2 (Non-) (test code = 4126240174) eGFR Calculation mL/min/1.73m2 () (test code = 8630201965) BHAVANI (test code = BHAVANI) Association of [...] tests). Lab Interpretation Abnormal (test code = 87210-0) [facility]2020-[facility]-11 19:22:00 Test Item Value Reference Range Interpretation Comments MAGNESIUM (test code = 1566233103) 1.8 mg/dL 1.7-2.4 Lab Interpretation (test code = Normal 92003-9) [facility] / [id number] 19:09:00 Test Item Value Reference Range Interpretation [...] tions. Lab Interpretation (test Normal code = 58999-6) [facility] WITH [id number] 02:43:00 Test Item Value Reference Range Interpretation [...] (test code = 57.5 fL 38.5-51.6 H 98483-9) RDW-CV (test code = 15.9 % 12.1-15.4 H 788-0) PLT (test code = See_Comment L [Automated 777-3) message] The sy stem which generated this result transmitted reference range : 150 - 328 10*3/ ?L. The reference r tk was not used to interpret this result as normal/abnormal . MPV (test code = 9.3 fL 9.8-13 L 70802-2) IPF % (test code = 2.4 % 1.2-10.7 Platelet count 9261250781) measured by fluorescence method. NRBC/100 WBC (test See_Comment [Automat ed code = 8142078651) message] The system which generated this result transmitted reference range : 0.0 - 10.0 /100 WBCs. The refer ence range was not u sed to interpret th is result as normal/abnormal . NRBC x10^3 (test code See_Comment [Auto mated = 8876427354) message] The s ystem which generated this result transmitted reference range : 10*3/?L. The reference range was not used to interpret this result as normal/abnormal . GRAN MAT (NEUT) % 77.1 % (test code = 770-8) IMM GRAN % (test code 1.20 % = 9147200428) LYMPH % (test code = 12.8 % 736-9) MONO % (test code = 8.4 % 5905-5) EOS % (test code = 0.0 % 713-8) BASO % (test code = 0.5 % 706-2) GRAN MAT x10^3(ANC) 3.33 10*3/uL 1.99-6.95 (test code = 3005408716) IMM GRAN x10^3 (test 0.05 10*3/uL 0-0.06 code = 5471560805) LYMPH x10^3 (test code 0.55 10*3/uL 1.09-3.23 L = 731-0) MONO x10^3 (test code 0.36 10*3/uL 0.36-1.02 = 742-7) EOS x10^3 (test code = <0.03 0.06-0.53 L 711-2) BASO x10^3 (test code <0.03 0.01-0.09 = 704-7) PLT ESTIMATE (test Decreased Normal A code = 9317-9) Lab Interpretation Abnormal (test code = 56580-7) [facility] [id number] 02:21:00 Test Item Value Reference Range Interpretation Comments TROPONIN I (test 0.018 ng/mL See_Comment [Automated code = 9115255281) message] The system which generated this result [...] ? Lab Interpretation Normal (test code = 22292-2) [facility] (ID NOW RAPID TESTING)2020-05-22 02:17:00 Test Item Value Reference Range Interpretation Comments SARS-CoV-2 Rapid ID NOW Not Detected Not Detected (test code = 55215-8) BHAVANI (test code = BHAVANI) ID NOW COVID-19 Assay is an isothermal nucleic acid amplification test intended for the qualitative detection of nucleic acid from SARS-CoV-2 viral RNA in nasopharyngeal (TOOLING INSPECTOR) specimens. It is used under Emergency Use [...] indicated. Lab Interpretation Normal (test code = 75691-0) [facility]. METABOLIC PANEL (73137)2020-05-22 02:09:00 Test Item Value Reference Range Interpretation Comments NA (test code = 135 mmol/L 135-145 5868701843) K (test code = 3.6 mmol/L 3.5-5 7491911767) CL (test code = 102 mmol/L 98-108 8889726260) CO2 TOTAL (test code = 21 mmol/L 23-31 L 4687001806) AGAP (test code = 2-16 0502297412) BUN (test code = 14 mg/dL 7-23 1747976128) GLUCOSE (test code = 184 mg/dL 70-110 H 9928899197) CREATININE (test code = 0.79 mg/dL 0.6-1.25 2932087005) TOTAL BILI (test code = 1.8 mg/dL 0.1-1.1 H 7562279083) CALCIUM (test code = 9.0 mg/dL 8.6-10.6 2252445292) T PROTEIN (test code = 7.5 g/dL 6.3-8.2 5910222443) ALBUMIN (test code = 4.3 g/dL 3.5-5 7443280484) ALK PHOS (test code = 84 U/L 34-122 2672901925) ALTv (test code = 34 U/L 5-50 1742-6) AST(SGOT) (test code = 81 U/L 13-40 H 3432967549) eGFR Calculation mL/min/1.73m2 (Non-) (test code = 4769745100) eGFR Calculation mL/min/1.73m2 () (test code = 7863254825) BHAVANI (test code = BHAVANI) Association of [...] tests). Lab Interpretation Abnormal (test code = 66475-7) [facility]2020-12-11 02:09:00 Test Item Value Reference Range Interpretation Comments MAGNESIUM (test code = 3929919525) 1.6 mg/dL 1.7-2.4 L Lab Interpretation (test code = Abnormal 89146-8) [facility] CampusT[facility] [id number] 18:37:00Surgical Pathology Report Case: [id number] Authorizing Provider: Lencho Delgado, Collected: 04/09/2019 Slime KELLY OrderingLocation: [facility] Received: 04/09/2019 1223 [employer] [employer] Pathologist: Jose Alfredo Dozier MD Specimen: Aortic Valve, AORTIC VALVE LEAFLET HEART, AORTIC VALVE,VALVULECTOMY:LEAFLETS WITH NODULAR CALCIFIC ATHEROSCLEROTIC THICKENING Signing Pathologist Direct Phone Line: [phone] signed by Jose Alfredo Dozier MD on 04/15/2019 at 6:37 [id number]; [id number]-vugackvxq aortic valve stenosisAortic valve leafletReceived fresh with patient's demographic information and surgical accession number are fragments of calcified valvular leaflet, 3.5 x 2 x up to 1 cm in greatest dimension. Developer Advisor section submitted in A1 for decalcification. HL/plPe [...] WBC 0-0 (BEAKER) (test code = 413) [id number] 04:42:00 Test Item Value Reference Range Interpretation Comments MAGNESIUM (BEAKER) (test code = 1.8 mg/dL 1.6-2.6 627) BASIC METABOLIC [id number] 04:42:00 Test Item Value Reference Range Interpretation [...] PATIEN TS. CBC W/PLT COUNT & AUTO [id number] 04:28:00 Test Item Value Reference Range Interpretation [...] = 2801) CBC W/PLT COUNT & AUTO [id number] 11:55:00 Test Item Value Reference Range Interpretation [...] H PERCENT (BEAKER) (test code = 2801) [id number] 08:43:00 Test Item Value Reference Range Interpretation Comments MAGNESIUM (BEAKER) 1.9 mg/dL 1.6-2.6 Specimen slightly (test code = 627) hemolyzed BASIC METABOLIC [id number] 08:43:00 Test Item Value Reference Range Interpretation [...] S NOT APPLICABLE FOR DIALYSIS PATIEN TS. [id number] 03:36:00 Test Item Value Reference Range Interpretation Comments MAGNESIUM (BEAKER) (test code = 1.8 mg/dL 1.6-2.6 627) BASIC METABOLIC [id number] 03:36:00 Test Item Value Reference Range Interpretation [...] PATIEN TS. CBC W/PLT COUNT & AUTO [id number] 03:10:00 Test Item Value Reference Range Interpretation [...] 0-1 PERCENT (BEAKER) (test code = 2801) [id number] 06:05:00 Test Item Value Reference Range Interpretation Comments MAGNESIUM (BEAKER) (test code = 1.9 mg/dL 1.6-2.6 627) BASIC METABOLIC [id number] 06:05:00 Test Item Value Reference Range Interpretation [...] PATIEN TS. CBC W/PLT COUNT & AUTO [id number] 05:42:00 Test Item Value Reference Range Interpretation [...] PERCENT (BEAKER) (test code = 2801) POCT-GLUCOSE [id number] 18:07:00 Test Item Value Reference Range Interpretation Comments POC-GLUCOSE METER 97 mg/dL 70-110 : TESTED A T [facility] 6720 (BEAKER) (test code = [facility], 1538) 73291: Student Support Counselor/Techni criss ID = [id number] for MANANO IRAIS Mccray POCT-GLUCOSE [id number] 13:23:00 Test Item Value Reference Range Interpretation Comments POC-GLUCOSE METER 92 mg/dL 70-110 : TESTED A T [facility] 6720 (BEAKER) (test code = [facility], 1538) 79917: Student Support Counselor/Techni criss ID = [id number] for MANANO NIRAIS TROPONIN [id number] 12:02:00 Test Item Value Reference Range Interpretation Comments TROPONIN I (BEAKER) (test code = 0.66 ng/mL 0.00-0.03 HH 397) Troponin I (TnI) [...] acidosis, acute neurological disease, and persistent tachyarrhythmia.POCT-GLUCOSE [id number] 08:03:00 Test Item Value Reference Range Interpretation Comments POC-GLUCOSE METER 99 mg/dL 70-110 : TESTED A T [facility] 6720 (BEAKER) (test code = [facility] [place], 1538) 11581: Student Support Counselor/Techni criss ID = [id number] for IRAIS ESQUIVEL RAD, CHEST, 1 VIEW, NON [id number] 07:02:00Reason for exam:->chest tubeShould this be performed at the bedside?->YesFINAL REPORT CLINICAL INDICATION: Support lines. Comparison: 04/10/2019 The c ardiomediastinal contours are stable. Central pulmonary vascular prominence and bilateral parenchymal and pleural opacities are similar to previous. There is no pneumothorax. A right IJ CVC has been removed. Signed: Ralph New MDReport Verified Date/Time: 04/11/2019 07:02:55 TROPONIN [id number] 03:58:00 Test Item Value Reference Range Interpretation [...] failure, acidosis, acute neurological disease, and persistent tachyarrhythmia.[id number] 03:34:00 Test Item Value Reference Range Interpretation Comments PHOSPHORUS (BEAKER) (test code = 2.4 mg/dL 2.3-4.7 604) [id number] 03:34:00 Test Item Value Reference Range Interpretation Comments MAGNESIUM (BEAKER) (test code = 2.0 mg/dL 1.6-2.6 627) BASIC METABOLIC [id number] 03:34:00 Test Item Value Reference Range Interpretation [...] 0-0 (BEAKER) (test code = 413) POCT-GLUCOSE [id number] 22:10:00 Test Item Value Reference Range Interpretation Comments POC-GLUCOSE METER 139 mg/dL 70-110 H : TESTED A T [facility] 6720 (МАРИЯ) (test code = [facility] Nadir [facility], 1538) 66798: Student Support Counselor/Techni criss ID = [id number] for LYUBOV MARMOLEJO POCT-GLUCOSE [id number] 21:27:00 Test Item Value Reference Range Interpretation Comments POC-GLUCOSE METER 126 mg/dL 70-110 H : TESTED A T [facility] 6720 (МАРИЯ) (test code = [facility], 1538) 84659: Student Support Counselor/Techni criss ID = [id number] for Cr uz, Natty POCT-GLUCOSE [id number] 12:13:00 Test Item Value Reference Range Interpretation Comments POC-GLUCOSE METER 190 mg/dL 70-110 H : TESTED A T [facility] 6720 (МАРИЯ) (test code = [facility], 1538) 06323: Student Support Counselor/Techni criss ID = [id number] for OM MIRELA, ALICEA RAD, CHEST, 1 VIEW, NON [id number] 04:52:00while patient is intubated or has chest [...] /100 WBC 0-0 (test code = 413) [id number] 03:40:00 Test Item Value Reference Range Interpretation Comments PHOSPHORUS (BEAKER) (test code = 4.4 mg/dL 2.3-4.7 604) [id number] 03:40:00 Test Item Value Reference Range Interpretation Comments MAGNESIUM (BEAKER) (test code = 1.9 mg/dL 1.6-2.6 627) BASIC METABOLIC [id number] 03:40:00 Test Item Value Reference Range Interpretation [...] NOT APPLICABLE FOR DIALYSIS PATIEN TS. POCT-GLUCOSE [id number] 23:09:00 Test Item Value Reference Range Interpretation Comments POC-GLUCOSE METER 124 mg/dL 70-110 H : TESTED A T [facility] 6720 (BEAKER) (test code = [facility], 1538) 28386: Student Support Counselor/Techni criss ID = [id number] for CLAUDIA ERICKSON POCT-GLUCOSE [id number] 18:45:00 Test Item Value Reference Range Interpretation Comments POC-GLUCOSE METER 145 mg/dL 70-110 H : [facility] (test code = [facility], 1538) 13925: Student Support Counselor/Techni criss ID = [id number] for Cliff santosdougie Brown POCT-GLUCOSE [id number] 17:16:00 Test Item Value Reference Range Interpretation Comments POC-GLUCOSE METER 154 mg/dL 70-110 H : Will Rep eat Test: (BEAKER) (test code = [facility] 1538[facility], [address]: Student Support Counselor/Techni criss ID = [id number] for IVAN HUSSEIN BLOOD GAS, [id number] 16:11:00 Test Item Value Reference Range Interpretation [...] (BEAKER) (test code = 1819) 40.0 % [id number] 14:13:00 Test Item Value Reference Range Interpretation Comments MAGNESIUM (BEAKER) (test code = 1.6 mg/dL 1.6-2.6 627) RAD, CHEST, 1 VIEW, NON [id number] 13:42:00Reason for exam:->Status post CV Surgery post [...] are intact and well aligned. Signed: Bora Espinoepmegan Verified Date/Time: 2018 13:42:07 Reading Location: [facility] Reading Room CBC W/PLT COUNT & AUTO [id number] 13:21:00 Test Item Value Reference Range Interpretation [...] = 3438) Received comment: User comments: Slide comments:[id number] 13:20:00 Test Item Value Reference Range Interpretation Comments FIBRINOGEN LEVEL (BEAKER) (test 222 mg/dl 225-434 L code = 658) [id number] 13:20:00 Test Item Value Reference Range Interpretation Comments PARTIAL THROMBOPLASTIN TIME 34.1 seconds 22.5-36.0 (BEAKER) (test code = 760) PROTHROMBIN TIME/[id number] 13:19:00 Test Item Value Reference Range Interpretation [...] INR is2.5-3.5 for patients wiht mechanical heart valves.[id number] 13:17:00 Test Item Value Reference Range Interpretation Comments PHOSPHORUS (BEAKER) (test code = 3.5 mg/dL 2.3-4.7 604) BASIC METABOLIC [id number] 13:17:00 Test Item Value Reference Range Interpretation [...] APPLICABLE FOR DIALYSIS PATIEN TS. LACTIC ACID, [id number] 13:13:00 Test Item Value Reference Range Interpretation Comments LACTATE BLOOD ARTERIAL (2) 0.9 mmol/L 0.5-2.2 (BEAKER) (test code = 2874) CALCIUM, [id number] 13:03:00 Test Item Value Reference Range Interpretation Comments CALCIUM IONIZED (BEAKER) (test 1.19 mmol/L 1.12-1.27 code = 698) PH, BLOOD (BEAKER) (test code = 7.36 1810) BLOOD GAS, [id number] 13:02:00 Test Item Value Reference Range Interpretation [...] code = 1819) 60.0 % OXYGEN SATURATION, [id number] 12:56:00 Test Item Value Reference Range Interpretation [...] 59.5 MM 55.0-65.0 (test code = 1413) [id number] 12:03:00 Test Item Value Reference Range Interpretation Comments FIBRINOGEN LEVEL (BEAKER) (test 224 mg/dl 225-434 L code = 658) [id number] 12:03:00 Test Item Value Reference Range Interpretation Comments PARTIAL THROMBOPLASTIN TIME 37.1 seconds 22.5-36.0 H (BEAKER) (test code = 760) PROTHROMBIN [id number] 12:02:00 Test Item Value Reference Range Interpretation [...] is2.5-3.5 for patients wiht mechanical heart valves.PLATELET [id number] 11:51:00 Test Item Value Reference Range Interpretation Comments PLATELET COUNT (BEAKER) (test 116 K/CU MM 150-450 L code = 756) POTASSIUM-STAT [id number] 11:47:00 Test Item Value Reference Range Interpretation Comments POTASSIUM (BEAKER) (test code = 4.8 meq/L 3.6-5.5 379) BLOOD GAS, [id number] 11:47:00 Test Item Value Reference Range Interpretation [...] (test code = 1819) 97.0 % CALCIUM, [id number] 11:47:00 Test Item Value Reference Range Interpretation Comments CALCIUM IONIZED (BEAKER) (test 1.08 mmol/L 1.12-1.27 L code = 698) PH, BLOOD (BEAKER) (test code = 7.30 1810) GLUCOSE-STAT [id number] 11:47:00 Test Item Value Reference Range Interpretation Comments GLUCOSE RANDOM (BEAKER) (test code 175 mg/dL 70-110 H = 652) SODIUM NA-STAT [id number] 11:47:00 Test Item Value Reference Range Interpretation Comments SODIUM (BEAKER) (test code = 381) 133 meq/L 135-148 L HGB/HCT (H&H) - STAT [id number] 11:47:00 Test Item Value Reference Range Interpretation [...] L (test code = 1413) BLOOD GAS, [id number] 11:17:00 Test Item Value Reference Range Interpretation [...] (test code = 1819) 91.0 % GLUCOSE-STAT [id number] 11:17:00 Test Item Value Reference Range Interpretation Comments GLUCOSE RANDOM (BEAKER) (test code 149 mg/dL 70-110 H = 652) HGB/HCT (H&H) - STAT [id number] 11:17:00 Test Item Value Reference Range Interpretation Comments HEMOGLOBIN (BEAKER) (test code = 8.5 g/dL 13.0-16.8 L 410) HEMATOCRIT (BEAKER) (test code = 25.0 % 40.0-50.0 L 411) SODIUM NA-STAT [id number] 11:17:00 Test Item Value Reference Range Interpretation Comments SODIUM (BEAKER) (test code = 381) 133 meq/L 135-148 L POTASSIUM-STAT [id number] 11:16:00 Test Item Value Reference Range Interpretation Comments POTASSIUM (BEAKER) (test code = 4.9 meq/L 3.6-5.5 379) [id number] 11:10:00 Test Item Value Reference Range Interpretation Comments ACTIVATED CLOTTING TIME 125 sec Refe rence Range: (BEAKER) (test code = 74-137 seconds, 441) Baseline/TESTED AT [address] [address] [id number] 11:10:00 Test Item Value Reference Range Interpretation Comments ACTIVATED CLOTTING TIME 549 sec Refe rence Range: (BEAKER) (test code = 74-137 seconds, 441) Baseline/TESTED AT [place] [id number] [facility] [address] 0 [id number] 11:10:00 Test Item Value Reference Range Interpretation Comments ACTIVATED CLOTTING TIME 675 sec Refe rence Range: (BEAKER) (test code = 74-137 seconds, 441) Baseline/TESTED AT [address] [address] [id number] 11:10:00 Test Item Value Reference Range Interpretation Comments ACTIVATED CLOTTING TIME 885 sec Refe rence Range: (BEAKER) (test code = 74-137 seconds, 441) Baseline/TESTED AT [address] [address] 0 [id number] 11:10:00 Test Item Value Reference Range Interpretation Comments ACTIVATED CLOTTING TIME 643 sec Refe rence Range: (BEAKER) (test code = 74-137 seconds, 441) Baseline/TESTED AT [address] [address] 0 [id number] 10:55:00 Test Item Value Reference Range Interpretation Comments FIBRINOGEN LEVEL (BEAKER) (test 228 mg/dl 225-434 code = 658) [id number] 10:55:00 Test Item Value Reference Range Interpretation Comments PARTIAL THROMBOPLASTIN TIME 41.1 seconds 22.5-36.0 H (BEAKER) (test code = 760) PROTHROMBIN [id number] 10:54:00 Test Item Value Reference Range Interpretation [...] is2.5-3.5 for patients wiht mechanical heart valves.PLATELET [id number] 10:44:00 Test Item Value Reference Range Interpretation Comments PLATELET COUNT (BEAKER) (test code 83 K/CU MM 150-450 L = 756) BLOOD GAS, [id number] 10:44:00 Test Item Value Reference Range Interpretation [...] code = 1819) 92.0 % SODIUM NA-STAT [id number] 10:44:00 Test Item Value Reference Range Interpretation Comments SODIUM (BEAKER) (test code = 381) 130 meq/L 135-148 L GLUCOSE-STAT [id number] 10:44:00 Test Item Value Reference Range Interpretation Comments GLUCOSE RANDOM (BEAKER) (test code 154 mg/dL 70-110 H = 652) HGB/HCT (H&H) - STAT [id number] 10:44:00 Test Item Value Reference Range Interpretation Comments HEMOGLOBIN (BEAKER) (test code = 9.1 g/dL 13.0-16.8 L 410) HEMATOCRIT (BEAKER) (test code = 27.0 % 40.0-50.0 L 411) CALCIUM, [id number] 10:44:00 Test Item Value Reference Range Interpretation Comments CALCIUM IONIZED (BEAKER) (test 1.11 mmol/L 1.12-1.27 L code = 698) PH, BLOOD (BEAKER) (test code = 7.40 1810) POTASSIUM-STAT [id number] 10:40:00 Test Item Value Reference Range Interpretation Comments POTASSIUM (BEAKER) (test code = 5.0 meq/L 3.6-5.5 379) BLOOD GAS, [id number] 09:57:00 Test Item Value Reference Range Interpretation [...] (test code = 1819) 80.0 % GLUCOSE-STAT [id number] 09:57:00 Test Item Value Reference Range Interpretation Comments GLUCOSE RANDOM (BEAKER) (test code 168 mg/dL 70-110 H = 652) SODIUM NA-STAT [id number] 09:57:00 Test Item Value Reference Range Interpretation Comments SODIUM (BEAKER) (test code = 381) 131 meq/L 135-148 L POTASSIUM-STAT [id number] 09:57:00 Test Item Value Reference Range Interpretation Comments POTASSIUM (BEAKER) (test code = 5.9 meq/L 3.6-5.5 H 379) HGB/HCT (H&H) - STAT [id number] 09:57:00 Test Item Value Reference Range Interpretation Comments HEMOGLOBIN (BEAKER) (test code = 8.5 g/dL 13.0-16.8 L 410) HEMATOCRIT (BEAKER) (test code = 25.0 % 40.0-50.0 L 411) BLOOD GAS, [id number] 09:31:00 Test Item Value Reference Range Interpretation [...] code = 1819) 65.0 % SODIUM NA-STAT [id number] 09:31:00 Test Item Value Reference Range Interpretation Comments SODIUM (BEAKER) (test code = 381) 131 meq/L 135-148 L GLUCOSE-STAT [id number] 09:31:00 Test Item Value Reference Range Interpretation Comments GLUCOSE RANDOM (BEAKER) (test code 175 mg/dL 70-110 H = 652) HGB/HCT (H&H) - STAT [id number] 09:31:00 Test Item Value Reference Range Interpretation Comments HEMOGLOBIN (BEAKER) (test code = 7.7 g/dL 13.0-16.8 L 410) HEMATOCRIT (BEAKER) (test code = 23.0 % 40.0-50.0 L 411) POTASSIUM-STAT [id number] 09:29:00 Test Item Value Reference Range Interpretation Comments POTASSIUM (BEAKER) (test code = 5.5 meq/L 3.6-5.5 379) POTASSIUM-STAT [id number] 09:07:00 Test Item Value Reference Range Interpretation Comments POTASSIUM (BEAKER) 6.9 meq/L 3.6-5.5 HH Sample NO T Hemolyzed. (test code = 379) BLOOD GAS, [id number] 09:05:00 Test Item Value Reference Range Interpretation Comments PH ARTERIAL (BEAKER) (test code = 7.38 7.35-7.45 383) PCO2 ARTERIAL (BEAKER) (test code 43 mmHg 35-45 = 384) PO2 ARTERIAL (BEAKER) (test code 323 mmHg 80-90 H = 385) O2 SATURATION ARTERIAL (BEAKER) 99.7 % 96.0-97.0 H (test code = 386) HCO3 ARTERIAL (BEAKER) (test code 26 mmol/L = 388) BASE EXCESS ARTERIAL (BEAKER) -0.7 mmol/L -2.0-3.0 (test code = 387) PATIENT TEMPERATURE (BEAKER) 31.4 C (test code = 1818) FIO2 (BEAKER) (test code = 1819) 70.0 % GLUCOSE-STAT [id number] 09:05:00 Test Item Value Reference Range Interpretation Comments GLUCOSE RANDOM (BEAKER) (test code 216 mg/dL 70-110 H = 652) HGB/HCT (H&H) - STAT [id number] 09:05:00 Test Item Value Reference Range Interpretation Comments HEMOGLOBIN (BEAKER) (test code = 8.0 g/dL 13.0-16.8 L 410) HEMATOCRIT (BEAKER) (test code = 24.0 % 40.0-50.0 L 411) SODIUM NA-STAT [id number] 09:05:00 Test Item Value Reference Range Interpretation Comments SODIUM (BEAKER) (test code = 381) 123 meq/L 135-148 L GLUCOSE-STAT [id number] 08:03:00 Test Item Value Reference Range Interpretation Comments GLUCOSE RANDOM (BEAKER) (test code 107 mg/dL 70-110 = 652) POTASSIUM-STAT [id number] 08:03:00 Test Item Value Reference Range Interpretation Comments POTASSIUM (BEAKER) (test code = 4.2 meq/L 3.6-5.5 379) BLOOD GAS, [id number] 08:03:00 Test Item Value Reference Range Interpretation [...] -29 = 388) BASE EXCESS ARTERIAL (BEAKER) 0.0 mmol/L -2.0-3.0 (test code = 387) PATIENT TEMPERATURE (BEAKER) (test 35.2 C code = 1818) FIO2 (BEAKER) (test code = 1819) 100.0 % SODIUM NA-STAT [id number] 08:03:00 Test Item Value Reference Range Interpretation Comments SODIUM (BEAKER) (test code = 381) 130 meq/L 135-148 L HGB/HCT (H&H) - STAT [id number] 08:03:00 Test Item Value Reference Range Interpretation Comments HEMOGLOBIN (BEAKER) (test code = 12.3 g/dL 13.0-16.8 L 410) HEMATOCRIT (BEAKER) (test code = 36.0 % 40.0-50.0 L 411) CALCIUM, [id number] 08:02:00 Test Item Value Reference Range Interpretation Comments CALCIUM IONIZED (BEAKER) (test 1.23 mmol/L 1.12-1.27 code = 698) PH, BLOOD (BEAKER) (test code = 7.45 1810) POCT-GLUCOSE [id number] 06:05:00 Test Item Value Reference Range Interpretation Comments POC-GLUCOSE METER 96 mg/dL 70-110 : TESTED A T [facility] 6720 (BEAKER) (test code = GERALD ARELLANO [place], 1538) [address]: Student Support Counselor/Techni criss ID = [id number] for JORD AN, LACRYSTAL RAD, CHEST, 2 [id number] 13:23:00In departmentReason for exam:->Aoritc valve replacement Pre op screenFINAL REPORT CLINICAL HISTORY: Aortic valve replacement Pre op screen TECHNIQUE: 2 views of the chest COMPARISON: None IMPRESSION: There are no focal infiltrates or effusions. The cardiomediastinal silhouette is within normal limits for size. The osseous structures appear intact. Signed: Jaiden Galvan [facility] Verified Date/Time: 04/04/2019 13:23:46 Reading Location: [facility] Radiology Reading Room HEMOGLOBIN [id number] 13:07:00 Test Item Value Reference Range Interpretation Comments HEMOGLOBIN A1C (BEAKER) (test code = 4.7 % 4.3-6.1 368) [id number] 12:23:00 Test Item Value Reference Range Interpretation Comments MAGNESIUM (BEAKER) (test code = 2.0 mg/dL 1.6-2.6 627) COMPREHENSIVE METABOLIC [id number] 12:23:00 Test Item Value Reference Range Interpretation [...] NOT APPLICABLE FOR DIALYSIS PATIEN TS. LIPID [id number] 12:23:00 Test Item Value Reference Range Interpretation [...] 100-129 Borderline 130-159 High 160-189 Very High [id number] 12:02:00 Test Item Value Reference Range Interpretation Comments PARTIAL THROMBOPLASTIN TIME 34.5 seconds 22.5-36.0 (BEAKER) (test code = 760) PROTHROMBIN [id number] 12:01:00 Test Item Value Reference Range Interpretation [...] mechanical heart valves.CBC W/PLT COUNT & AUTO [id number] 11:52:00 Test Item Value Reference Range Interpretation [...] 0-1 H PERCENT (BEAKER) (test code = 8867)"
--- NOTE | 2021-12-04 15:16 | EDPHYS ---
Physician Documentation [facility] Name: Gavin Polo Jr Age: 66 yrs Sex: Male : 1955 Arrival Date: 12/04/2021 Time: 14:04 Bed 4 Private MD: Shaun Way E ED Physician Christopher Kearns HPI: 12/04 15:13 This 66 yrs old Male presents to ER via Wheelchair with complaints of Post Surgical ma2 Bleeding - cheek. 15:13 Patient presents because he had bleeding at the surgical site from left face cancer ma2 resection, bleeding 3 hours ago, has resolved at this time. Patient does not have any symptom at this time.. Historical: - Allergies: 14:18 No Known Allergies; ld1 - PMHx: 14:18 Anxiety; Hypertension; central tremor; GERD; barrots; etoh abuse; Atrial valve stenosis;ld1 - PSHx: 14:18 heart valve replacement; ld1 - Immunization history:: Adult Immunizations up to date, Client reports receiving the 2nd dose of the Covid vaccine. - Social history:: Smoking status: Patient denies any tobacco usage or history of. Patient uses alcohol, on a daily basis. - Family history:: not pertinent. ROS: 15:13 Constitutional: Negative for fever, chills, and weight loss. ma2 15:13 All other systems are negative. Exam: 15:13 Constitutional: This is a well developed, well nourished patient who is awake, alert, ma2 and in no acute distress. Head/Face: Postsurgical excision site on left cheek over zygoma, wound is dry no active bleeding, no induration around it, measures 1 x 1 cm. Circular. Irregular otherwise normocephalic, atraumatic. Eyes: Pupils equal round and reactive to light, extra-ocular motions intact. Lids and lashes normal. Conjunctiva and sclera are non-icteric and not injected. Cornea within normal limits. Periorbital areas with no swelling, redness, or edema. ENT: Nares patent. No nasal discharge, no septal abnormalities noted. Tympanic membranes are normal and external auditory canals are clear. Oropharynx with no redness, swelling, or masses, exudates, or evidence of obstruction, uvula midline. Mucous membranes moist. Neck: Trachea midline, no thyromegaly or masses palpated, and no cervical lymphadenopathy. Supple, full range of motion without nuchal rigidity, or vertebral point tenderness. No Meningismus. Chest/axilla: Normal chest wall appearance and motion. Nontender with no deformity. No lesions are appreciated. Cardiovascular: Regular rate and rhythm with a normal S1 and S2. No gallops, murmurs, or rubs. Normal PMI, no JVD. No pulse deficits. Respiratory: Lungs have equal breath sounds bilaterally, clear to auscultation and percussion. No rales, rhonchi or wheezes noted. No increased work of breathing, no retractions or nasal flaring. Abdomen/GI: Soft, non-tender, with normal bowel sounds. No distension or tympany. No guarding or rebound. No evidence of tenderness throughout. Vital Signs: 14:16 BP 142 / 81; Pulse 87; Resp 18; Temp 97.8(TE); Pulse Ox 100% on R/A; Weight 90.72 kg; ld1 Height 5 ft. 8 in. (172.72 cm); Pain 0/10; 15:31 BP 136 / 80; Pulse 80; Resp 16; Temp 97.8; Pulse Ox 100% ; Pain 0/10; jh6 14:16 Body Mass Index 30.41 (90.72 kg, 172.72 cm) ld1 MDM: 14:11 Patient medically screened. ma2 15:13 Differential diagnosis: Contusion of Hematoma on Mild abrasion, surgical bleeding. All ma2 symptoms have stopped at this time. Data reviewed: vital signs, nurses notes. Counseling: I had a detailed discussion with the patient and/or guardian regarding: the historical points, exam findings, and any diagnostic results supporting the discharge/admit diagnosis, the presence of at least one elevated blood pressure reading (>120/80) during this emergency department visit, the need for outpatient follow up. Response to treatment: the patient's symptoms have resolved after treatment. Administered Medications: No medications were administered Disposition Summary: 12/04/21 15:16 Discharge Ordered Location: Home ma2 Condition: Stable ma2 Diagnosis - Disruption of external operation (surgical) wound, not elsewhere classified - ma2 Bleeding - resolved Followup: ma2 - With: Private Physician - When: Tomorrow - Reason: If symptoms return Discharge Instructions: - Discharge Summary Sheet ma2 - How to Change Your Wound Dressing, [id number]-lk-[id number] ma2 Forms: - Medication Reconciliation Form ma2 - Thank You Letter ma2 - Antibiotic Education ma2 - Prescription Opioid Use ma2 Signatures: Christopher Kearns MD MD ma2 Tammi Edmondson RN RN ld1
--- NOTE | 2021-12-04 15:16 | ER ---
Nurse's Notes [facility] Name: Gavin Polo Jr Age: 66 yrs Sex: Male : 1955 Arrival Date: 12/04/2021 Time: 14:04 Bed 4 Private MD: Shaun Way E Diagnosis: Disruption of external operation (surgical) wound, not elsewhere classified-Bleeding - resolved Presentation: 12/04 14:16 Chief complaint: Patient states: Skin cancer removal to left cheek - pt reports ld1 shakiness after seeing blood on face. Pt thinks bleeding has not stopped. Coronavirus screen: At this time, the client does not indicate any symptoms associated with coronavirus-19. Ebola Screen: No symptoms or risks identified at this time. Initial Sepsis Screen: Does the patient meet any 2 criteria? No. Patient's initial sepsis screen is negative. Does the patient have a suspected source of infection? No. Patient's initial sepsis screen is negative. Risk Assessment: Do you want to hurt yourself or someone else? Patient reports no desire to harm self or others. Onset of symptoms was December 04, 2021. 14:16 Method Of Arrival: Wheelchair ld1 14:16 Acuity: NICK 3 ld1 Triage Assessment: 14:18 General: Appears in no apparent distress. comfortable, Behavior is calm, cooperative, ld1 appropriate for age. Pain: Denies pain. EENT: No signs and/or symptoms were reported regarding the EENT system. Neuro: Level of Consciousness is awake, alert, obeys commands, Oriented to person, place, time, situation. Cardiovascular: Capillary refill < 3 seconds Patient's skin is warm and dry. Respiratory: Airway is patent Respiratory effort is even, unlabored, Respiratory pattern is regular, symmetrical. GI: Abdomen is round non-distended. : No signs and/or symptoms were reported regarding the genitourinary system. Derm: No signs and/or symptoms reported regarding the dermatologic system. Musculoskeletal: No signs and/or symptoms reported regarding the musculoskeletal system. Historical: - Allergies: 14:18 No Known Allergies; ld1 - PMHx: 14:18 Anxiety; Hypertension; central tremor; GERD; barrots; etoh abuse; Atrial valve stenosis;ld1 - PSHx: 14:18 heart valve replacement; ld1 - Immunization history:: Adult Immunizations up to date, Client reports receiving the 2nd dose of the Covid vaccine. - Social history:: Smoking status: Patient denies any tobacco usage or history of. Patient uses alcohol, on a daily basis. - Family history:: not pertinent. Screenin:20 Abuse screen: Denies threats or abuse. Denies injuries from another. jh6 14:20 Nutritional screening: No deficits noted. Tuberculosis screening: No symptoms or risk jh6 factors identified. Fall Risk None identified. Assessment: 14:20 General: Appears in no apparent distress. Behavior is calm, cooperative. jh6 14:20 Pain: Complains of pain in left cheek Pain currently is 2 out of 10 on a pain scale. jh6 Quality of pain is described as sharp. Derm: Reports bleeding from surgical skin cancer removal area. Vital Signs: 14:16 BP 142 / 81; Pulse 87; Resp 18; Temp 97.8(TE); Pulse Ox 100% on R/A; Weight 90.72 kg; ld1 Height 5 ft. 8 in. (172.72 cm); Pain 0/10; 15:31 BP 136 / 80; Pulse 80; Resp 16; Temp 97.8; Pulse Ox 100% ; Pain 0/10; jh6 14:16 Body Mass Index 30.41 (90.72 kg, 172.72 cm) ld1 ED Course: 14:04 Patient arrived in ED. am2 14:[address] MD is Private Physician. am2 14:10 Christopher Kearns MD is Attending Physician. ma2 14:18 Triage completed. ld1 14:18 Arm band placed on right wrist. ld1 14:20 Bed in low position. Call light in reach. Side rails up X 1. Adult w/ patient. jh6 14:52 Ana Laura Aguilera, RN is Primary Nurse. vg1 14:55 No provider procedures requiring assistance completed. jh6 15:31 Patient did not have IV access during this emergency room visit. jh6 Administered Medications: No medications were administered Medication: 15:31 VIS not applicable for this client. jh6 Outcome: 15:16 Discharge ordered by . ma2 15:31 Discharged to home via wheelchair. jh6 15:31 Condition: good 15:31 Discharge instructions given to patient, family, Instructed on discharge instructions, Demonstrated understanding of instructions. 15:32 Patient left the ED. jh6 Signatures: Daylin Garvey Mohammad, MD MD ma2 Ana Laura Aguilera RN RN vg1 Tammi Edmondson RN RN ld1 Charisse Nickerson RN RN jh6
[2021-12-04 15:40] VITALS: TEMP 97.8; O2SAT 100
[2021-12-04 15:41] VITALS: BP 136/80
== END 2021-12-04 15:32 | disposition home or self-care (01) ==
LOC: ER 14:03
DX: T81.31XA Disruption of external operation (surgical) wound, not elsewhere classified, initial encounter (principal); I10 Essential (primary) hypertension; Z95.4 Presence of other heart-valve replacement
CPT/HCPCS: 99281

== ENCOUNTER 2022-10-29 13:21 | Inpatient (IN) | payer OTHER ==
--- OUTSIDE RECORDS SUMMARY | 2022-10-29 13:31 | XMS REPORT | Continuity of Care Document ---
:1955 Author Organization [facility] t Address [address] [facility]. [address] [place] [address] Care Team Providers Name Role Phone SHAUN WAY JR Primary Care Physician Unavailable SEBASTIÁN MAST Attending Clinician Unavailable Shaun Way Attending Clinician Unavailable DAVID MURPHY Attending Clinician Unavailable BENNY PALENCIA Attending Clinician Unavailable Sebastián Mast MD Attending Clinician Benny Ruiz Attending Clinician Doctor Unassigned, [place] Attending Clinician Unavailable Wellington Mcrae PTA Attending Clinician Unavailable Ivett Kent PT Attending Clinician Unavailable Fernando Desai MD Attending Clinician Jamia Barrett MA Attending Clinician Unavailable BRAULIO BERRY Attending Clinician Unavailable BRINDA TAN Attending Clinician Unavailable LENCHO DELGADO Attending Clinician Unavailable Girish Taylor MD Attending Clinician Tasneem Shaw MD Attending Clinician Renée Mustafa MD Attending Clinician Kit Campos MD Attending Clinician KIT CAMPOS Attending Clinician Unavailable KIT CAMPOS Attending Clinician Unavailable SEBASTIÁN MAST Admitting Clinician Unavailable DAVID MURPHY Admitting Clinician Unavailable BRINDA TAN Admitting Clinician Unavailable Renée Mustafa MD Admitting Clinician LENCHO DELGADO Admitting Clinician Unavailable Payers Payer Name Policy Type Policy Number Effective Date Expiration Date S hayes [employer]ET[employer] MANAGED [id number] 2022 MEDICARE 00:00:00 PPO-PASQUALE MEDICARE PART A [id number] 2020 2024 AND B 00:00:00 00:00:00 [employer]ET[employer] HMO [id number] 00:00:00 [employer]ET[employer] O POS [id number] QPOS 00:00:00 AETNA [id number] [facility] MEDICARE MB [id number] [facility] N[facility]AS [facility] MEDICARE MB [id number] [facility] - [facility] MEDICARE MB [id number] [facility] N[facility] - [facility] MEDICARE MB [id number] [facility] N[facility] - [facility] MEDICARE MB [id number] [facility] - [facility] MEDICARE MB [id number] [facility] - [facility] MEDICARE MB [id number] [facility] - [facility] MEDICARE MB [id number] [facility] - [facility] MEDICARE MB [id number] [facility] - [facility] MEDICARE MB [id number] [facility] - [facility] MEDICARE MB [id number] [facility] - [facility] MEDICARE MB [id number] [facility] - [facility] MEDICARE MB [id number] [facility] Problems Condition Condition Condition Status Onset Resolution Last Treating Co mments Source Name Details Category Date Date Treatment Clinician Date Primary Primary Disease Active Overview: Univ ers osteoarthr osteoarthr 1-10 Formattin ity of itis of itis of 00:00: g of this [place] left left 00 note Medical shoulder shoulder might be Bran ch different from the original. Added automatic ally from request for surgery [id number] Obesity Obesity Disease Active 2019-06 Univers (BMI (BMI 2-11 ity of 30-39.9) 30-39.9) 00:00: [address] Branch Alcohol Alcohol Disease Active 2019-06 Univers withdrawal withdrawal 2-10 it y of 00:00: [address] s/p s/p Disease Active 2018-06 [facility] Bioprosthe Bioprosthe Rosie kes tic AVR by tic AVR by 00:00: Me amish Kuo [address]. 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 Acute Acute Disease Recurre [facility]I respirator respirator nce Rosie kes y y Medical insufficie insufficie Ce nter ncy ncy Postoperat Postoperat Disease Active C HI [facility] jef [facility] hypovolemi hypovolemi Me dical c shock, c shock, Center initial initial encounter encounter Hypertensi Hypertensi Disease Active C HI [facility] on on [facility] Neurogenic Neurogenic Problem Active C ommon dysfunctio urinary Spiri t n of the bladder - [facility] urinary disorder bladder [facility] [id number] Other Problem Active 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[facility] arthropath - CHI ies, not St elsewhere 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 - CHI y of left shoulder [facility] [id number] BPH loc w Problem Active Com mon urin Spirit obs/LUTS - [facility] [id number] Acute Problem Active Common urinary Spirit retention - [facility] Allergies, Adverse Reactions, Alerts Allergy Allergy Status Severity Reaction(s) Onset Inactive Treating Comm ents Source Name Type Date Date Clinician Pollen Propensi Active 2018-[address] Extracts ty to 0-24 nose, [facility] adverse 00:00: sneezing Medical reaction 00 Center s POLLEN Allergy Active 2018-06 [facility] EXTRACTS 0-24 00:00: 00 NO KNOWN Drug Active Univers ALLERGIE Class ity of S [place] [facility] Family History Family Member Diagnosis Comments Start Date Stop Date Source Natural father Heart attack [facility] Natural mother Cancer [facility] Social History Social Habit Start Date Stop Date Quantity Comments Source Gender identity [facility] Sexual orientation Method ist Hospital History [facility] Alcohol Std Drinks Medica [facility] Alcohol Binge Medical Laurie ter History of Tobacco [facility] - Use [facility] Exposure to 2022-09-18 2022-09-28 Not sure University of SARS-CoV-2 (event) 00:00:00 15:16:00 [facility] Alcohol intake 2021-05-12 2021-05-12 Current drinker [facility] 00:00:00 00:00:00 of [facility] Center (finding) History SD[facility] Social 2020-05-22 2020-05-22 2 Unive rsity of Connections Phone 00:00:00 00:00:00 [facility] edical Branch History SDOH Social 2020-05-22 2020-05-22 98 Unive rsity of Connections Get 00:00:00 00:00:00 [place] Med ical Together Branch History SDOH Social 2020-05-22 2020-05-22 98 Unive rsity of Connections Buddhism 00:00:00 00:00:00 [place] [facility] History [facility] Social 2020-05-22 2020-05-22 2 Unive rsity of Connections 00:00:00 00:00:00 [place] Medical Membership Branch History [facility] Social 2020-05-22 2020-05-22 99 Unive rsity of Connections 00:00:00 00:00:00 [place] Medical Meetings Branch History [facility] Social 2020-05-22 2020-05-22 3 Unive rsity of Connections Living 00:00:00 00:00:00 [place] [facility] History SDOH 2020-05-22 2020-05-22 0 [...] University o f Transport Non-Med 00:00:00 00:00:00 [place] M edical Branch Alcohol Comment 2019-04-10 2019-04-[address] [facility] 00:[facility] 00:[facility]00 Medical Center Tobacco use and 2019-04-04 2019-04-[address] Rosie kes exposure 00:00:00 00:00:00 tobacco non-user Medical Center History SDOH 2019-04-04 2019-04-[address] [facility] [facility] Alcohol Frequency 00:00:00 00:00:00 [facility] Sex Assigned [birth year] [facility] Rosie wongs 00:00:00 00:00:00 Medical Center Smoking Status Start Date Stop Date Source Tobacco smoking consumption unknown [facility] Never smoked tobacco [facility] Medications Ordered Filled Start Stop Current Ordering Indication Dosage Frequency Signature Comments Components Source Medication Medication Date Date Medication? Clinician (SIG) Name Name oxyCODONE-a 2022- Yes 2{tbl} Uni vers cetaminophe 09-26 ity of n 05:00: 16:59 [place] (PERCOCET) 00 :00 Medical 5-325 mg Branch per tablet 2 tablet tranexamic 2022- Yes 1000mg Univ ers acid 09-26 ity of (CYKLOKAPRO 05:00: 16:59 [place] N) 1,000 mg 00 :00 Medical in NaCl Branch 0.9% (NS) 250 mL piggyback aspirin 81 2020-06 Yes 81mg QD Take [address] MG EC 2-01 by mouth [facility] tablet 11:38: daily. Medical 03 Center temazepam 2020-06 Yes 15mg Take [address] (RESTORIL) 2-01 by mouth [facility] 15 mg 11:37: every Medical capsule 45 night as Center needed for Sleep. ibuprofen 2020-06 Yes 800mg Take [address] (ADVIL,MOTR 2-01 mg by [facility]ukes IN) 800 MG 11:37: mouth Medica l tablet 45 every 6 Center (six) hours as needed for Pain. DULoxetine 2020-06 Yes 30mg QD Take [address] (CYMBALTA) 2-01 by mouth [facility]ukes 30 MG 11:37: daily. Medical capsule 44 Center tamsulosin 2020-06 Yes .4mg QD Take 0.[address] (FLOMAX) 2-01 mg by [facility]ukes 0.4 mg Cap 11:37: mouth Medica l 24 hr 44 daily. Center capsule metoprolol 2020-06 Yes 12.5mg Q.5D Take 12.[address] tartrate 2-01 mg by Lukes (LOPRESSOR) 11:37: mouth 2 Med ical 25 MG 44 (two) Center tablet times daily. atorvastati 2020-06 Yes 20mg QD Take [address] n (LIPITOR) 2-01 by mouth Luke s 20 MG 11:37: daily. Medical tablet 44 Center loratadine 2020-06 Yes 10mg Take [address] (CLARITIN) 2-01 by mouth [facility] 10 mg 11:34: as needed Medical tablet 10 for Center Allergies. Ibuprofen Ibuprofen 2020-06- No Ibuprofen 800 MG 800 MG 0-26 11-25 800 MG 00:00: 00:00 00 :00 Ibuprofen Ibuprofen 2020-06- No Ibuprofen 800 MG 800 MG 0-26 11-25 800 MG 00:00: 00:00 00 :00 Tamsulosin Tamsulosin 2021- No 1{capsu QD Tamsulosin HCl 0.4 MG HCl 0.4 MG 8-20 -15 le} HCl 0.4 MG 00:00: 00:00 00 :00 Tamsulosin Tamsulosin 2021- No 1{capsu QD Tamsulosin HCl 0.4 MG HCl 0.4 MG 8-20 -15 le} HCl 0.4 MG 00:00: 00:00 00 :00 Tamsulosin Tamsulosin 2021- No 1{capsu QD Tamsulosin HCl 0.4 MG HCl 0.4 MG 8-20 02-15 le} HCl 0.4 MG 00:00: 00:00 00 :00 Tamsulosin Tamsulosin 2021- No 1{capsu QD Tamsulosin HCl 0.4 MG HCl 0.4 MG 8-20 02-15 le} HCl 0.4 MG 00:00: 00:00 00 :00 Tamsulosin Tamsulosin 2021- No 1{capsu QD Tamsulosin HCl 0.4 MG HCl 0.4 MG 8-20 02-15 le} HCl 0.4 MG 00:00: 00:00 00 :00 Tamsulosin Tamsulosin 2021- No 1{capsu QD Tamsulosin HCl 0.4 MG HCl 0.4 MG 8-20 02-15 le} HCl 0.4 MG 00:00: 00:00 00 :00 Tamsulosin Tamsulosin 2021- No 1{capsu QD Tamsulosin HCl 0.4 MG HCl 0.4 MG 8-20 -15 le} HCl 0.4 MG 00:00: 00:00 00 :00 Tamsulosin Tamsulosin 2- No 1{capsu QD Tamsulosin HCl 0.4 MG HCl 0.4 MG 8-20 -15 le} HCl 0.4 MG 00:00: 00:00 00 :00 Tamsulosin Tamsulosin 2- No 1{capsu QD HCl 0.4 MG HCl 0.4 MG 8-20 -15 le} 00:00: 00:00 00 :00 Tamsulosin Tamsulosin 2021- No 1{capsu QD Tamsulosin HCl 0.4 MG HCl 0.4 MG 8-20 -15 le} HCl 0.4 MG 00:00: 00:00 00 :00 Tamsulosin Tamsulosin 2020- No 1{capsu QD Tamsulosin HCl 0.4 MG HCl 0.4 MG 6-17 12-13 le} HCl 0.4 MG 00:00: 00:00 00 :00 Tamsulosin Tamsulosin 2020- No 1{capsu QD Tamsulosin HCl 0.4 MG HCl 0.4 MG 6-17 12-13 le} HCl 0.4 MG 00:00: 00:00 00 :00 Tamsulosin Tamsulosin 2020- No 1{capsu QD Tamsulosin HCl 0.4 MG HCl 0.4 MG 6-17 12-13 le} HCl 0.4 MG 00:00: 00:00 00 :00 Tamsulosin Tamsulosin 1- No 1{capsu QD Tamsulosin HCl 0.4 MG HCl 0.4 MG 6-17 12-13 le} HCl 0.4 MG 00:00: 00:00 00 :00 Tamsulosin Tamsulosin 2020- No 1{capsu QD Tamsulosin HCl 0.4 MG HCl 0.4 MG 6-17 12-13 le} HCl 0.4 MG 00:00: 00:00 00 :00 Tamsulosin Tamsulosin 2020- No 1{capsu QD Tamsulosin HCl 0.4 MG HCl 0.4 MG 6-17 12-13 le} HCl 0.4 MG 00:00: 00:00 00 :00 Tamsulosin Tamsulosin 1- No 1{capsu QD Tamsulosin HCl 0.4 MG HCl 0.4 MG 6-17 12-13 le} HCl 0.4 MG 00:00: 00:00 00 :00 Tamsulosin Tamsulosin 2021- No 1{capsu QD Tamsulosin HCl 0.4 MG HCl 0.4 MG 6-17 12-13 le} HCl 0.4 MG 00:00: 00:00 00 :00 Tamsulosin Tamsulosin 1- No 1{capsu QD Tamsulosin HCl 0.4 MG HCl 0.4 MG 6-17 12-13 le} HCl 0.4 MG 00:00: 00:00 00 :00 Tamsulosin Tamsulosin 1- No 1{capsu QD HCl 0.4 MG HCl 0.4 MG 6-17 12-13 le} 00:00: 00:00 00 :00 Tamsulosin Tamsulosin 1- No 1{capsu QD Tamsulosin HCl 0.4 MG HCl 0.4 MG 6-17 12-13 le} HCl 0.4 MG 00:00: 00:00 00 :00 Tamsulosin Tamsulosin 1- No 1{capsu QD Tamsulosin HCl 0.4 MG HCl 0.4 MG 6-17 12-13 le} HCl 0.4 MG 00:00: 00:00 00 :00 Tamsulosin Tamsulosin 1- No 1{capsu QD Tamsulosin HCl 0.4 MG HCl 0.4 MG 6-17 12-13 le} HCl 0.4 MG 00:00: 00:00 00 :00 traMADol traMADol 2020-0 No 1{table traMADol HCl 50 MG HCl 50 MG 3-11 t_as_ne HCl 50 MG 00:00: eded} 00 traMADol traMADol 2020-0 No 1{table traMADol HCl 50 MG HCl 50 MG 3-11 t_as_ne HCl 50 MG 00:00: eded} 00 traMADol traMADol 2020-0 No 1{table traMADol HCl 50 MG HCl 50 MG 3-11 t_as_ne HCl 50 MG 00:00: eded} 00 traMADol traMADol 1-0 No 1{table traMADol HCl 50 MG HCl 50 MG 3-11 t_as_ne HCl 50 MG 00:00: eded} 00 traMADol traMADol 1-0 No 1{table traMADol HCl 50 MG HCl 50 MG 3-11 t_as_ne HCl 50 MG 00:00: eded} 00 traMADol traMADol 1-0 No 1{table traMADol HCl 50 MG HCl 50 MG 3-11 t_as_ne HCl 50 MG 00:00: eded} 00 traMADol traMADol 1-0 No 1{table traMADol HCl 50 MG HCl 50 MG 3-11 t_as_ne HCl 50 MG 00:00: eded} 00 traMADol traMADol 2020-0 No 1{table traMADol HCl 50 MG HCl 50 MG 3-11 t_as_ne HCl 50 MG 00:00: eded} 00 traMADol traMADol 1-0 No 1{table HCl 50 MG HCl 50 MG 3-11 t_as_ne 00:00: eded} 00 traMADol traMADol 2020-0 No 1{table traMADol HCl 50 MG HCl 50 MG 3-11 t_as_ne HCl 50 MG 00:00: eded} 00 traMADol traMADol 2020-0 No 1{table traMADol HCl 50 MG HCl 50 MG 3-11 t_as_ne HCl 50 MG 00:00: eded} 00 Bupivicaine Bupivicaine 2020-0 No Common [facility] Rhodes 3-11 Spirit 00:00: - [facility] 00 [facility] Kenalog Kenalog 2020-0 No 40mg Common (Triamcinol (Triamcinol 3-11 S pirit one) one) 00:00: - [facility] 00 [facility] traMADol traMADol 1-0 No 1{table traMADol HCl 50 MG HCl 50 MG 3-11 t_as_ne HCl 50 MG 00:00: eded} 00 Bupivicaine Bupivicaine 1-0 No 2.5mg Common Rhodes Rhodes 3-11 Spirit 00:00: - [facility] 00 [facility] Kenalog Kenalog 2020-0 No 40mg Common (Triamcinol (Triamcinol 3-11 S pirit one) one) 00:00: - [facility] 00 [facility] traMADol traMADol No 1{table traMADol HCl 50 MG HCl 50 MG 3-11 t_as_ne HCl 50 MG 00:00: eded} 00 Bupivicaine Bupivicaine No 2.5mg Common Rhodes Rhodes 3-11 Spirit 00:00: - [facility] 00 [facility] Kenalog Kenalog No 40mg Common (Triamcinol (Triamcinol 3-11 S pirit one) one) 00:00: - [facility] 00 [facility] traMADol traMADol No 1{table traMADol HCl 50 MG HCl 50 MG 3-11 t_as_ne HCl 50 MG 00:00: eded} traMADol traMADol No 1{table traMADol HCl 50 MG HCl 50 MG 3-11 t_as_ne HCl 50 MG 00:00: eded} 00 traMADol traMADol No 1{table traMADol HCl 50 MG HCl 50 MG 3-11 t_as_ne HCl 50 MG 00:00: eded} 00 thiamine 2020-1 Yes [id number] 100mg Take 1 U nivers 100 mg 2-12 tablet by ity of tablet 00:00: mouth [place] 00 daily. [facility] thiamine 2020-1 Yes [id number] 100mg Take 1 U nivers 100 mg 2-12 tablet by ity of tablet 00:00: mouth [place] 00 daily. [facility] thiamine 2020-1 Yes [id number] 100mg Take 1 U nivers 100 mg 2-12 tablet by ity of tablet 00:00: mouth [place] 00 daily. [facility] thiamine 2020-1 Yes [id number] 100mg Take 1 U nivers 100 mg 2-12 tablet by ity of tablet 00:00: mouth [place] 00 daily. [facility] thiamine 2020-1 Yes [id number] 100mg Take 1 U nivers 100 mg 2-12 tablet by ity of tablet 00:00: mouth [place] 00 daily. [facility] thiamine 2020-1 Yes [id number] 100mg Take 1 U nivers 100 mg 2-12 tablet by ity of tablet 00:00: mouth [place] 00 daily. [facility] thiamine 2020-1 Yes [id number] 100mg Take 1 U nivers 100 mg 2-12 tablet by ity of tablet 00:00: mouth [place] 00 daily. Medical Branch thiamine 2020-1 Yes [id number] 100mg Take 1 U nivers 100 mg 2-12 tablet by ity of tablet 00:00: mouth [place] 00 daily. [facility] thiamine 2020-1 Yes [id number] 100mg Take 1 U nivers 100 mg 2-12 tablet by ity of tablet 00:00: mouth [place] 00 daily. [facility] thiamine 2020-1 Yes [id number] 100mg Take 1 U nivers 100 mg 2-12 tablet by ity of tablet 00:00: mouth [place] 00 daily. Medical Branch thiamine 2020-1 Yes [id number] 100mg Take 1 U nivers 100 mg 2-12 tablet by ity of tablet 00:00: mouth [place] 00 daily. [facility] thiamine 2020-1 Yes [id number] 100mg Take 1 U nivers 100 mg 2-12 tablet by ity of tablet 00:00: mouth [place] 00 daily. [facility] thiamine 2020-1 Yes [id number] 100mg Take 1 U nivers 100 mg 2-12 tablet by ity of tablet 00:00: mouth [place] 00 daily. [facility] thiamine 2020-1 Yes [id number] 100mg Take 1 U nivers 100 mg 2-12 tablet by ity of tablet 00:00: mouth [place] 00 daily. [facility] thiamine 2020-1 Yes [id number] 100mg Take 1 U nivers 100 mg 2-12 tablet by ity of tablet 00:00: mouth [place] 00 daily. [facility] thiamine 2020-1 Yes [id number] 100mg Take 1 U nivers 100 mg 2-12 tablet by ity of tablet 00:00: mouth [place] 00 daily. [facility] thiamine 2020-1 Yes [id number] 100mg Take 1 U nivers 100 mg 2-12 tablet by ity of tablet 00:00: mouth [place] 00 daily. [facility] thiamine 2020-1 Yes [id number] 100mg Take 1 U nivers 100 mg 2-12 tablet by ity of tablet 00:00: mouth [place] 00 daily. [facility] thiamine 2020-1 Yes [id number] 100mg Take 1 U nivers 100 mg 2-12 tablet by ity of tablet 00:00: mouth [place] 00 daily. [facility] thiamine 2020-1 Yes [id number] 100mg Take 1 U nivers 100 mg 2-12 tablet by ity of tablet 00:00: mouth [place] 00 daily. [facility] thiamine 2020-1 Yes [id number] 100mg Take 1 U nivers 100 mg 2-12 tablet by ity of tablet 00:00: mouth [place] 00 daily. Medical Branch thiamine 2019- Yes [id number] 100mg Take 1 U nivers 100 mg 2-12 tablet by ity of tablet 00:00: mouth [place] 00 daily. Medical Branch thiamine 2019- Yes [id number] 100mg Take 1 U nivers 100 mg 2-12 tablet by ity of tablet 00:00: mouth [place] 00 daily. Medical Branch thiamine 2019- Yes [id number] 100mg Take 1 U nivers 100 mg 2-12 tablet by ity of tablet 00:00: mouth [place] 00 daily. Medical Branch thiamine 2019-06 Yes [id number] 100mg Take 1 U nivers 100 mg 2-12 tablet by ity of tablet 00:00: mouth [place] 00 daily. Medical Branch thiamine 2019-06 Yes [id number] 100mg Take 1 U nivers 100 mg 2-12 tablet by ity of tablet 00:00: mouth [place] 00 daily. Medical Branch thiamine 2019-06 Yes [id number] 100mg Take 1 U nivers 100 mg 2-12 tablet by ity of tablet 00:00: mouth [place] 00 daily. Medical Branch thiamine 2019-06 Yes [id number] 100mg Take 1 U nivers 100 mg 2-12 tablet by ity of tablet 00:00: mouth [place] 00 daily. Medical Branch thiamine 2019- Yes [id number] 100mg Take 1 U nivers 100 mg 2-12 tablet by ity of tablet 00:00: mouth [place] 00 daily. Medical Branch thiamine 2019-06 Yes [id number] 100mg Take 1 U nivers 100 mg 2-12 tablet by ity of tablet 00:00: mouth [place] 00 daily. Medical Branch acetylcyst/ 2019- Yes .314mg Take 0.314 Univers [id number]/l 2-11 mg by ity of evomefol 18:11: mouth. [place] (CEREFOLIN 31 Medical NAC ORAL) Branch aspirin 2019- Yes 81mg Take 81 mg Univ ers (ASPIR-LOW) 2-11 by mouth ity of 81 mg EC 18:11: daily. [place] tablet 31 Medical Branch mirtazapine 2019- Yes 15mg Take 15 mg Univers 15 mg 2-11 by mouth ity of tablet 18:11: at [place] 31 bedtime. Medical Branch metoprolol 2019- Yes 12.5mg Take 12.5 Univers tartrate 25 2-11 mg by ity of mg tablet 18:11: mouth 2 [place] [address] (two) Medical times [place] daily. atorvastati 2019-06 Yes 20mg Take 20 mg Univers n 20 mg 2-11 by mouth ity of tablet 18:11: at [place] [address] bedtime. Medical Branch acetylcyst/ 2019-06 Yes .314mg Take 0.314 Univers [id number]/l 2-11 mg by ity of evomefol 18:11: mouth. [place] ([place] [address] Medical NAC ORAL) Branch aspirin 2019-06 Yes 81mg Take 81 mg Univ ers (ASPIR-LOW) 2-11 by mouth ity of 81 mg EC 18:11: daily. [place] [address] Medical Branch mirtazapine 2019-06 Yes 15mg Take 15 mg Univers 15 mg 2-11 by mouth ity of tablet 18:11: at [place] [address] bedtime. Medical Branch metoprolol 2019-06 Yes 12.5mg Take 12.5 Univers tartrate 25 2-11 mg by ity of mg tablet 18:11: mouth 2 [place] [address] ([facility] Medical times [place] daily. atorvastati 2019-06 Yes 20mg Take 20 mg Univers n 20 mg 2-11 by mouth ity of tablet 18:11: at [place] [address] bedtime. Medical Branch acetylcyst/ 2019-06 Yes .314mg Take 0.314 Univers [id number]/l 2-11 mg by ity of evomefol 18:11: mouth. [place] ([place] [address] Medical NAC ORAL) Branch aspirin 2019-06 Yes 81mg Take 81 mg Univ ers (ASPIR-LOW) 2-11 by mouth ity of 81 mg EC 18:11: daily. [place] [address] Medical Branch mirtazapine 2019-06 Yes 15mg Take 15 mg Univers 15 mg 2-11 by mouth ity of tablet 18:11: at [place] [address] bedtime. Medical Branch metoprolol 2019-06 Yes 12.5mg Take 12.5 Univers tartrate 25 2-11 mg by ity of mg tablet 18:11: mouth 2 [place] [address] (two) Medical times [place] daily. atorvastati 2019-06 Yes 20mg Take 20 mg Univers n 20 mg 2-11 by mouth ity of tablet 18:11: at [place] [address] bedtime. Medical Branch acetylcyst/ 2019-06 Yes .314mg Take 0.314 Univers [id number]/l 2-11 mg by ity of evomefol 18:11: mouth. [place] ([address] NAC ORAL) Branch aspirin 2019-06 Yes 81mg Take 81 mg Univ ers (ASPIR-LOW) 2-11 by mouth ity of 81 mg EC 18:11: daily. [place] [address] Medical Branch mirtazapine 2019-06 Yes 15mg Take 15 mg Univers 15 mg 2-11 by mouth ity of tablet 18:11: at [place] [address] bedtime. Medical Branch metoprolol 2019-06 Yes 12.5mg Take 12.5 Univers tartrate 25 2-11 mg by ity of mg tablet 18:11: mouth 2 [place] [address] (two) Medical times [place] daily. atorvastati 2019-06 Yes 20mg Take 20 mg Univers n 20 mg 2-11 by mouth ity of tablet 18:11: at [place] [address] bedtime. Medical Branch acetylcyst/ 2019-06 Yes .314mg Take 0.314 Univers [id number]/l 2-11 mg by ity of evomefol 18:11: mouth. [place] ([address] NAC ORAL) Branch aspirin 2019-06 Yes 81mg Take 81 mg Univ ers (ASPIR-LOW) 2-11 by mouth ity of 81 mg EC 18:11: daily. [place] [address] Medical Branch mirtazapine 2019-06 Yes 15mg Take 15 mg Univers 15 mg 2-11 by mouth ity of tablet 18:11: at [place] [address] bedtime. Medical Branch metoprolol 2019-06 Yes 12.5mg Take 12.5 Univers tartrate 25 2-11 mg by ity of mg tablet 18:11: mouth 2 [place] [address] (two) Medical times [place] daily. atorvastati 2019-06 Yes 20mg Take 20 mg Univers n 20 mg 2-11 by mouth ity of tablet 18:11: at [place] [address] bedtime. Medical Branch acetylcyst/ 2019-06 Yes .314mg Take 0.314 Univers [id number]/l 2-11 mg by ity of evomefol 18:11: mouth. [place] ([address] NAC ORAL) Branch aspirin 2019-06 Yes 81mg Take 81 mg Univ ers (ASPIR-LOW) 2-11 by mouth ity of 81 mg EC 18:11: daily. [place] [address] Medical Branch mirtazapine 2019-06 Yes 15mg Take 15 mg Univers 15 mg 2-11 by mouth ity of tablet 18:11: at [place] [address] bedtime. Medical Branch metoprolol 2019-06 Yes 12.5mg Take 12.5 Univers tartrate 25 2-11 mg by ity of mg tablet 18:11: mouth 2 [place] [address] (two) Medical times [place] daily. atorvastati 2019-06 Yes 20mg Take 20 mg Univers n 20 mg 2-11 by mouth ity of tablet 18:11: at [place] [address] bedtime. Medical Branch acetylcyst/ 2019-06 Yes .314mg Take 0.314 Univers [id number]/l 2-11 mg by ity of evomefol 18:11: mouth. [place] ([place] [address] Medical NAC ORAL) Branch aspirin 2019-06 Yes 81mg Take 81 mg Univ ers (ASPIR-LOW) 2-11 by mouth ity of 81 mg EC 18:11: daily. [place] [address] Medical Branch mirtazapine 2019-06 Yes 15mg Take 15 mg Univers 15 mg 2-11 by mouth ity of tablet 18:11: at [place] [address] bedtime. Medical Branch metoprolol 2019-06 Yes 12.5mg Take 12.5 Univers tartrate 25 2-11 mg by ity of mg tablet 18:11: mouth 2 [place] [address] (two) Medical times [place] daily. atorvastati 2019-06 Yes 20mg Take 20 mg Univers n 20 mg 2-11 by mouth ity of tablet 18:11: at [place] [address] bedtime. Medical Branch acetylcyst/ 2019-06 Yes .314mg Take 0.314 Univers [id number]/l 2-11 mg by ity of evomefol 18:11: mouth. [place] ([place] [address] Medical NAC ORAL) Branch aspirin 2019-06 Yes 81mg Take 81 mg Univ ers (ASPIR-LOW) 2-11 by mouth ity of 81 mg EC 18:11: daily. [place] [address] Medical Branch mirtazapine 2019-06 Yes 15mg Take 15 mg Univers 15 mg 2-11 by mouth ity of tablet 18:11: at [place] [address] bedtime. Medical Branch metoprolol 2019-06 Yes 12.5mg Take 12.5 [facility] tartrate 25 2-11 mg by ity of mg tablet 18:11: mouth 2 [place] [address] (two) Medical times [place] daily. atorvastati 2019-06 Yes 20mg Take 20 mg [facility] n 20 mg 2-11 by mouth ity of tablet 18:11: at [place] [address] bedtime. Medical Branch acetylcyst/ 2019-06 Yes .314mg Take 0.314 [facility] cqyccqY81/l 2-11 mg by ity of evomefol 18:11: mouth. [place] ([place] [address] Medical NAC ORAL) Branch aspirin 2019-06 Yes 81mg Take 81 mg [facility] ers (ASPIR-LOW) 2-11 by mouth ity of 81 mg EC 18:11: daily. [facility] 31 Medical Branch mirtazapine 2019-06 Yes 15mg Take 15 mg [facility] 15 mg 2-11 by mouth ity of tablet 18:11: at [place] [address] bedtime. Medical Branch metoprolol 2019-06 Yes 12.5mg Take 12.5 [facility] tartrate 25 2-11 mg by ity of mg tablet 18:11: mouth 2 [place] [address] (two) Medical times [place] daily. atorvastati 2019-06 Yes 20mg Take 20 mg [facility] n 20 mg 2-11 by mouth ity of tablet 18:11: at [place] [address] bedtime. Medical Branch acetylcyst/ 2019-06 Yes .314mg Take 0.314 [facility] [id number]/l 2-11 mg by ity of evomefol 18:11: mouth. [place] ([place] [address] Medical NAC ORAL) Branch aspirin 2019-06 Yes 81mg Take 81 mg [facility] ers (ASPIR-LOW) 2-11 by mouth ity of 81 mg EC 18:11: daily. [facility] 31 Medical Branch mirtazapine 2019-06 Yes 15mg Take 15 mg [facility] 15 mg 2-11 by mouth ity of tablet 18:11: at [place] [address] bedtime. Medical Branch metoprolol 2019-06 Yes 12.5mg Take 12.5 [facility] tartrate 25 2-11 mg by ity of mg tablet 18:11: mouth 2 [place] [address] (two) Medical times [place] daily. atorvastati 2019-06 Yes 20mg Take 20 mg [facility] n 20 mg 2-11 by mouth ity of tablet 18:11: at [place] [address] bedtime. Medical Branch acetylcyst/ 2019-06 Yes .314mg Take 0.314 [facility] [id number]/l 2-11 mg by ity of evomefol 18:11: mouth. [place] ([address] NAC ORAL) Branch aspirin 2019-06 Yes 81mg Take 81 mg [facility] ers (ASPIR-LOW) 2-11 by mouth ity of 81 mg EC 18:11: daily. [facility] 31 Medical Branch mirtazapine 2019-06 Yes 15mg Take 15 mg [facility] 15 mg 2-11 by mouth ity of tablet 18:11: at [place] [address] bedtime. Medical Branch metoprolol 2019-06 Yes 12.5mg Take 12.5 [facility] tartrate 25 2-11 mg by ity of mg tablet 18:11: mouth 2 [place] [address] (two) Medical times Branch daily. atorvastati 2019-06 Yes 20mg Take 20 mg [facility] n 20 mg 2-11 by mouth ity of tablet 18:11: at [place] [address] bedtime. Medical Branch acetylcyst/ 2019-06 Yes .314mg Take 0.314 [facility] [id number]/l 2-11 mg by ity of evomefol 18:11: mouth. [place] ([place] [address] Medical NAC ORAL) Branch aspirin 2019-06 Yes 81mg Take 81 mg [facility] ers (ASPIR-LOW) 2-11 by mouth ity of 81 mg EC 18:11: daily. [place] [address] Medical Branch mirtazapine 2019-06 Yes 15mg Take 15 mg [facility] 15 mg 2-11 by mouth ity of tablet 18:11: at [place] [address] bedtime. Medical Branch metoprolol 2019-06 Yes 12.5mg Take 12.5 [facility] tartrate 25 2-11 mg by ity of mg tablet 18:11: mouth 2 [place] [address] (two) Medical times [place] daily. atorvastati 2019-06 Yes 20mg Take 20 mg [facility] n 20 mg 2-11 by mouth ity of tablet 18:11: at [place] [address] bedtime. Medical Branch acetylcyst/ 2019-06 Yes .314mg Take 0.314 [facility] jiukoqU83/l 2-11 mg by ity of evomefol 18:11: mouth. [place] ([place] [address] Medical NAC ORAL) Branch aspirin 2019-06 Yes 81mg Take 81 mg [facility] ers (ASPIR-LOW) 2-11 by mouth ity of 81 mg EC 18:11: daily. [place] [address] Medical Branch mirtazapine 2019-06 Yes 15mg Take 15 mg [facility] 15 mg 2-11 by mouth ity of tablet 18:11: at [place] [address] bedtime. Medical Branch metoprolol 2019-06 Yes 12.5mg Take 12.5 [facility] tartrate 25 2-11 mg by ity of mg tablet 18:11: mouth 2 [place] [address] (two) Medical times [place] daily. atorvastati 2019-06 Yes 20mg Take 20 mg [facility] n 20 mg 2-11 by mouth ity of tablet 18:11: at [place] [address] bedtime. Medical Branch acetylcyst/ 2019-06 Yes .314mg Take 0.314 [facility] kmeysqW35/l 2-11 mg by ity of evomefol 18:11: mouth. [place] ([place] [address] Medical NAC ORAL) Branch aspirin 2019-06 Yes 81mg Take 81 mg [facility] ers (ASPIR-LOW) 2-11 by mouth ity of 81 mg EC 18:11: daily. [place] [address] Medical Branch mirtazapine 2019-06 Yes 15mg Take 15 mg [facility] 15 mg 2-11 by mouth ity of tablet 18:11: at [place] [address] bedtime. Medical Branch metoprolol 2019-06 Yes 12.5mg Take 12.5 [facility] tartrate 25 2-11 mg by ity of mg tablet 18:11: mouth 2 [place] [address] [facility] Medical times [place] daily. atorvastati 2019-06 Yes 20mg Take 20 mg [facility] n 20 mg 2-11 by mouth ity of tablet 18:11: at [place] [address] bedtime. Medical Branch acetylcyst/ 2019-06 Yes .314mg Take 0.314 [facility] zdxfiaX55/l 2-11 mg by ity of evomefol 18:11: mouth. [place] [facility] Branch aspirin 2019-06 Yes 81mg Take 81 mg [facility] ers (ASPIR-LOW) 2-11 by mouth ity of 81 mg EC 18:11: daily. [place] [address] Medical Branch mirtazapine 2019-06 Yes 15mg Take 15 mg [facility] 15 mg 2-11 by mouth ity of tablet 18:11: at [place] [address] bedtime. Medical Branch metoprolol 2019-06 Yes 12.5mg Take 12.5 [facility] tartrate 25 2-11 mg by ity of mg tablet 18:11: mouth 2 [place] [address] (two) Medical times [place] daily. atorvastati 2019-06 Yes 20mg Take 20 mg [facility] n 20 mg 2-11 by mouth ity of tablet 18:11: at [place] [address] bedtime. Medical Branch acetylcyst/ 2020-1 Yes .314mg Take 0.314 [facility] gaiebkZ90/l 2-11 mg by ity of evomefol 18:11: mouth. [place] ([place] [address] Medical NAC ORAL) Branch aspirin 2019-06 Yes 81mg Take 81 mg [facility] ers (ASPIR-LOW) 2-11 by mouth ity of 81 mg EC 18:11: daily. [place] [address] Medical Branch mirtazapine 2019-06 Yes 15mg Take 15 mg [facility] 15 mg 2-11 by mouth ity of tablet 18:11: at [place] [address] bedtime. Medical Branch metoprolol 2019-06 Yes 12.5mg Take 12.5 [facility] tartrate 25 2-11 mg by ity of mg tablet 18:11: mouth 2 [place] [address] (two) Medical times [place] daily. atorvastati 2019-06 Yes 20mg Take 20 mg [facility] n 20 mg 2-11 by mouth ity of tablet 18:11: at [place] [address] bedtime. Medical Branch acetylcyst/ 2019-06 Yes .314mg Take 0.314 [facility] [id number]/l 2-11 mg by ity of evomefol 18:11: mouth. [place] ([address] NAC ORAL) Branch aspirin 2019-06 Yes 81mg Take 81 mg [facility] ers (ASPIR-LOW) 2-11 by mouth ity of 81 mg EC 18:11: daily. [place] [address] Medical Branch mirtazapine 2019-06 Yes 15mg Take 15 mg [facility] 15 mg 2-11 by mouth ity of tablet 18:11: at [place] [address] bedtime. Medical Branch metoprolol 2019-06 Yes 12.5mg Take 12.5 [facility] tartrate 25 2-11 mg by ity of mg tablet 18:11: mouth 2 [place] [address] (two) Medical times [place] daily. atorvastati 2019-06 Yes 20mg Take 20 mg [facility] n 20 mg 2-11 by mouth ity of tablet 18:11: at [place] [address] bedtime. Medical Branch acetylcyst/ 2019-06 Yes .314mg Take 0.314 [facility] jdwydsR96/l 2-11 mg by ity of evomefol 18:11: mouth. [place] ([address] NAC ORAL) Branch aspirin 2019-06 Yes 81mg Take 81 mg [facility] ers (ASPIR-LOW) 2-11 by mouth ity of 81 mg EC 18:11: daily. [place] [address] Medical Branch mirtazapine 2019-06 Yes 15mg Take 15 mg [facility] 15 mg 2-11 by mouth ity of tablet 18:11: at [place] [address] bedtime. Medical Branch metoprolol 2019-06 Yes 12.5mg Take 12.5 [facility] tartrate 25 2-11 mg by ity of mg tablet 18:11: mouth 2 [place] [address] (two) Medical times [place] daily. atorvastati 2019-06 Yes 20mg Take 20 mg [facility] n 20 mg 2-11 by mouth ity of tablet 18:11: at [place] [address] bedtime. Medical Branch acetylcyst/ 2019-06 Yes .314mg Take 0.314 [facility] iswdqvW37/l 2-11 mg by ity of evomefol 18:11: mouth. [place] ([address] NAC ORAL) Branch aspirin 2019-06 Yes 81mg Take 81 mg [facility] ers (ASPIR-LOW) 2-11 by mouth ity of 81 mg EC 18:11: daily. [place] [address] Medical Branch mirtazapine 2019-06 Yes 15mg Take 15 mg [facility] 15 mg 2-11 by mouth ity of tablet 18:11: at [place] [address] bedtime. Medical Branch metoprolol 2019-06 Yes 12.5mg Take 12.5 [facility] tartrate 25 2-11 mg by ity of mg tablet 18:11: mouth 2 [place] [address] [facility] Medical times [place] daily. atorvastati 2019-06 Yes 20mg Take 20 mg [facility] n 20 mg 2-11 by mouth ity of tablet 18:11: at [place] [address] bedtime. Medical Branch acetylcyst/ 2019-06 Yes .314mg Take 0.314 [facility] [id number]/l 2-11 mg by ity of evomefol 18:11: mouth. [place] ([address] NAC ORAL) Branch aspirin 2019-06 Yes 81mg Take 81 mg Univ ers (ASPIR-LOW) 2-11 by mouth ity of 81 mg EC 18:11: daily. [place] [address] Medical Branch mirtazapine 2019-06 Yes 15mg Take 15 mg [facility] 15 mg 2-11 by mouth ity of tablet 18:11: at [place] [address] bedtime. Medical Branch metoprolol 2019-06 Yes 12.5mg Take 12.5 [facility] tartrate 25 2-11 mg by ity of mg tablet 18:11: mouth 2 [place] [address] (two) Medical times [place] daily. atorvastati 2019-06 Yes 20mg Take 20 mg [facility] n 20 mg 2-11 by mouth ity of tablet 18:11: at [place] [address] bedtime. Medical Branch acetylcyst/ 2019-06 Yes .314mg Take 0.314 [facility] zaxhllA99/l 2-11 mg by ity of evomefol 18:11: mouth. [place] ([place] [address] Medical NAC ORAL) Branch aspirin 2019-06 Yes 81mg Take 81 mg [facility] ers (ASPIR-LOW) 2-11 by mouth ity of 81 mg EC 18:11: daily. [facility] 31 Medical Branch mirtazapine 2019-06 Yes 15mg Take 15 mg [facility] 15 mg 2-11 by mouth ity of tablet 18:11: at [place] [address] bedtime. Medical Branch metoprolol 2019-06 Yes 12.5mg Take 12.5 [facility] tartrate 25 2-11 mg by ity of mg tablet 18:11: mouth 2 [place] [address] (two) Medical times [place] daily. atorvastati 2019-06 Yes 20mg Take 20 mg [facility] n 20 mg 2-11 by mouth ity of tablet 18:11: at [place] [address] bedtime. Medical Branch acetylcyst/ 2019-06 Yes .314mg Take 0.314 [facility] [id number]/l 2-11 mg by ity of evomefol 18:11: mouth. [place] ([place] [address] Medical NAC ORAL) Branch aspirin 2019-06 Yes 81mg Take 81 mg [facility] ers (ASPIR-LOW) 2-11 by mouth ity of 81 mg EC 18:11: daily. [facility] 31 Medical Branch mirtazapine 2019-06 Yes 15mg Take 15 mg [facility] 15 mg 2-11 by mouth ity of tablet 18:11: at [place] [address] bedtime. Medical Branch metoprolol 2019-06 Yes 12.5mg Take 12.5 [facility] tartrate 25 2-11 mg by ity of mg tablet 18:11: mouth 2 [place] [address] (two) Medical times [place] daily. atorvastati 2019-06 Yes 20mg Take 20 mg [facility] n 20 mg 2-11 by mouth ity of tablet 18:11: at [place] [address] bedtime. Medical Branch acetylcyst/ 2019-06 Yes .314mg Take 0.314 [facility] gsurdcY36/l 2-11 mg by ity of evomefol 18:11: mouth. [place] ([place] [address] Medical NAC ORAL) Branch aspirin 2019-06 Yes 81mg Take 81 mg [facility] ers (ASPIR-LOW) 2-11 by mouth ity of 81 mg EC 18:11: daily. [place] [address] Medical Branch mirtazapine 2019-06 Yes 15mg Take 15 mg [facility] 15 mg 2-11 by mouth ity of tablet 18:11: at [place] [address] bedtime. Medical Branch metoprolol 2019-06 Yes 12.5mg Take 12.5 [facility] tartrate 25 2-11 mg by ity of mg tablet 18:11: mouth 2 [place] [address] (two) Medical times [place] daily. atorvastati 2019-06 Yes 20mg Take 20 mg [facility] n 20 mg 2-11 by mouth ity of tablet 18:11: at [place] [address] bedtime. Medical Branch acetylcyst/ 2019-06 Yes .314mg Take 0.314 [facility] pmfdufI25/l 2-11 mg by ity of evomefol 18:11: mouth. [place] ([address] NAC ORAL) Branch aspirin 2019-06 Yes 81mg Take 81 mg Univ ers (ASPIR-LOW) 2-11 by mouth ity of 81 mg EC 18:11: daily. [place] [address] Medical Branch mirtazapine 2019-06 Yes 15mg Take 15 mg [facility] 15 mg 2-11 by mouth ity of tablet 18:11: at [place] [address] bedtime. Medical Branch metoprolol 2019-06 Yes 12.5mg Take 12.5 [facility] tartrate 25 2-11 mg by ity of mg tablet 18:11: mouth 2 [place] [address] (two) Medical times [place] daily. atorvastati 2019-06 Yes 20mg Take 20 mg [facility] n 20 mg 2-11 by mouth ity of tablet 18:11: at [place] [address] bedtime. Medical Branch acetylcyst/ 2019-06 Yes .314mg Take 0.314 [facility] ncokakS98/l 2-11 mg by ity of evomefol 18:11: mouth. [place] ([address] NAC ORAL) Branch aspirin 2019-06 Yes 81mg Take 81 mg Univ ers (ASPIR-LOW) 2-11 by mouth ity of 81 mg EC 18:11: daily. [place] [address] Medical Branch mirtazapine 2019-06 Yes 15mg Take 15 mg [facility] 15 mg 2-11 by mouth ity of tablet 18:11: at [place] [address] bedtime. Medical Branch metoprolol 2019-06 Yes 12.5mg Take 12.5 [facility] tartrate 25 2-11 mg by ity of mg tablet 18:11: mouth 2 [place] [address] (two) Medical times [place] daily. atorvastati 2019-06 Yes 20mg Take 20 mg [facility] n 20 mg 2-11 by mouth ity of tablet 18:11: at [place] [address] bedtime. Medical Branch acetylcyst/ 2019-06 Yes .314mg Take 0.314 [facility] fojvtwA19/l 2-11 mg by ity of evomefol 18:11: mouth. [place] ([place] [address] Medical NAC ORAL) Branch aspirin 2019-06 Yes 81mg Take 81 mg Univ ers (ASPIR-LOW) 2-11 by mouth ity of 81 mg EC 18:11: daily. [place] [address] Medical Branch mirtazapine 2019-06 Yes 15mg Take 15 mg [facility] 15 mg 2-11 by mouth ity of tablet 18:11: at [place] [address] bedtime. Medical Branch metoprolol 2019-06 Yes 12.5mg Take 12.5 [facility] tartrate 25 2-11 mg by ity of mg tablet 18:11: mouth 2 [place] [address] [facility] Medical times [place] daily. atorvastati 2019-06 Yes 20mg Take 20 mg [facility] n 20 mg 2-11 by mouth ity of tablet 18:11: at [place] [address] bedtime. Medical Branch acetylcyst/ 2019-06 Yes .314mg Take 0.314 [facility] qzqaenS53/l 2-11 mg by ity of evomefol 18:11: mouth. [place] ([place] [address] Medical NAC ORAL) Branch aspirin 2019-06 Yes 81mg Take 81 mg Univ ers (ASPIR-LOW) 2-11 by mouth ity of 81 mg EC 18:11: daily. [place] [address] Medical Branch mirtazapine 2019-06 Yes 15mg Take 15 mg [facility] 15 mg 2-11 by mouth ity of tablet 18:11: at [place] [address] bedtime. Medical Branch metoprolol 2019-06 Yes 12.5mg Take 12.5 [facility] tartrate 25 2-11 mg by ity of mg tablet 18:11: mouth 2 [place] [address] (two) Medical times [place] daily. atorvastati 2019-06 Yes 20mg Take 20 mg [facility] n 20 mg 2-11 by mouth ity of tablet 18:11: at [place] [address] bedtime. Medical Branch acetylcyst/ 2019-06 Yes .314mg Take 0.314 [facility] eqquydO82/l 2-11 mg by ity of evomefol 18:11: mouth. [place] ([address] NAC ORAL) Branch aspirin 2019-06 Yes 81mg Take 81 mg [facility] ers (ASPIR-LOW) 2-11 by mouth ity of 81 mg EC 18:11: daily. [place] [address] Medical Branch mirtazapine 2019-06 Yes 15mg Take 15 mg [facility] 15 mg 2-11 by mouth ity of tablet 18:11: at [place] [address] bedtime. Medical Branch metoprolol 2019-06 Yes 12.5mg Take 12.5 [facility] tartrate 25 2-11 mg by ity of mg tablet 18:11: mouth 2 [place] [address] (two) Medical times [place] daily. atorvastati 2019-06 Yes 20mg Take 20 mg [facility] n 20 mg 2-11 by mouth ity of tablet 18:11: at [place] [address] bedtime. Medical Branch acetylcyst/ 2019-06 Yes .314mg Take 0.314 [facility] [id number]/l 2-11 mg by ity of evomefol 18:11: mouth. [place] ([address] ORAL) Branch aspirin 2019-06 Yes 81mg Take 81 mg Univ ers (ASPIR-LOW) 2-11 by mouth ity of 81 mg EC 18:11: daily. [place] [address] Medical Branch mirtazapine 2019-06 Yes 15mg Take 15 mg [facility] 15 mg 2-11 by mouth ity of tablet 18:11: at [place] [address] bedtime. Medical Branch metoprolol 2019-06 Yes 12.5mg Take 12.5 [facility] tartrate 25 2-11 mg by ity of mg tablet 18:11: mouth 2 [place] [address] (two) Medical times [place] daily. atorvastati 2019-06 Yes 20mg Take 20 mg [facility] n 20 mg 2-11 by mouth ity of tablet 18:11: at [place] [address] bedtime. Medical Branch acetylcyst/ 2019-06 Yes .314mg Take 0.314 [facility] qferkkN32/l 2-11 mg by ity of evomefol 18:11: mouth. [place] ([address] NAC ORAL) Branch aspirin 2019-06 Yes 81mg Take 81 mg Univ ers (ASPIR-LOW) 2-11 by mouth ity of 81 mg EC 18:11: daily. [place] [address] Medical Branch mirtazapine 2019-1 Yes 15mg Take 15 mg [facility] 15 mg 2-11 by mouth ity of tablet 18:11: at [place] [address] bedtime. Medical Branch metoprolol 2019- Yes 12.5mg Take 12.5 [facility] tartrate 25 2-11 mg by ity of mg tablet 18:11: mouth 2 [place] 31 (two) Medical times Branch daily. atorvastati 2019- Yes 20mg Take 20 mg [facility] n 20 mg 2-11 by mouth ity of tablet 18:11: at [place] [address] bedtime. Medical Branch TOPIRAMATE 2020-0 Yes [id number] TAKE 1 [facility] 25 mg 5-29 TABLET BY ity of tablet 00:00: [facility] TWICE A Medical DAY Branch TOPIRAMATE 2020-0 Yes [id number] TAKE 1 [facility] 25 mg 5-29 TABLET BY ity of tablet 00:00: [facility] TWICE A Medical DAY Branch TOPIRAMATE 2020-0 Yes [id number] TAKE 1 [facility] 25 mg 5-29 TABLET BY ity of tablet 00:00: [facility] TWICE A Medical DAY Branch TOPIRAMATE 2020-0 Yes [id number] TAKE 1 [facility] 25 mg 5-29 TABLET BY ity of tablet 00:00: [facility] TWICE A Medical DAY Branch TOPIRAMATE 2020-0 Yes [id number] TAKE 1 [facility] 25 mg 5-29 TABLET BY ity of tablet 00:00: [facility] TWICE A Medical DAY Branch TOPIRAMATE 2020-0 Yes [id number] TAKE 1 [facility] 25 mg 5-29 TABLET BY ity of tablet 00:00: [facility] TWICE A Medical DAY Branch TOPIRAMATE 2020-0 Yes [id number] TAKE 1 [facility] 25 mg 5-29 TABLET BY ity of tablet 00:00: [facility] TWICE A Medical DAY Branch TOPIRAMATE 2020-0 Yes [id number] TAKE 1 [facility] 25 mg 5-29 TABLET BY ity of tablet 00:00: [facility] TWICE A Medical DAY Branch TOPIRAMATE 2020-0 Yes [id number] TAKE 1 [facility] 25 mg 5-29 TABLET BY ity of tablet 00:00: [facility] TWICE A Medical DAY Branch TOPIRAMATE 2020-0 Yes [id number] TAKE 1 [facility] 25 mg 5-29 TABLET BY ity of tablet 00:00: [facility] TWICE A Medical DAY Branch TOPIRAMATE 2020-0 Yes [id number] TAKE 1 [facility] 25 mg 5-29 TABLET BY ity of tablet 00:00: MOUTH TWICE A Medical DAY Branch TOPIRAMATE 2020-0 Yes [id number] TAKE 1 [facility] 25 mg 5-29 TABLET BY ity of tablet 00:00: MOUTH TWICE A Medical DAY Branch TOPIRAMATE 2020-0 Yes [id number] TAKE 1 [facility] 25 mg 5-29 TABLET BY ity of tablet 00:00: MOUTH TWICE A Medical DAY Branch TOPIRAMATE 2020-0 Yes [id number] TAKE 1 [facility] 25 mg 5-29 TABLET BY ity of tablet 00:00: MOUTH TWICE A Medical DAY Branch TOPIRAMATE 2020-0 Yes [id number] TAKE 1 [facility] 25 mg 5-29 TABLET BY ity of tablet 00:00: MOUTH TWICE A Medical DAY Branch TOPIRAMATE 2020-0 Yes [id number] TAKE 1 [facility] 25 mg 5-29 TABLET BY ity of tablet 00:00: MOUTH TWICE A Medical DAY Branch TOPIRAMATE 2020-0 Yes [id number] TAKE 1 [facility] 25 mg 5-29 TABLET BY ity of tablet 00:00: MOUTH TWICE A Medical DAY Branch TOPIRAMATE 2020-0 Yes [id number] TAKE 1 [facility] 25 mg 5-29 TABLET BY ity of tablet 00:00: MOUTH TWICE A Medical DAY Branch TOPIRAMATE 2020-0 Yes [id number] TAKE 1 [facility] 25 mg 5-29 TABLET BY ity of tablet 00:00: MOUTH TWICE A Medical DAY Branch TOPIRAMATE 2020-0 Yes [id number] TAKE 1 [facility] 25 mg 5-29 TABLET BY ity of tablet 00:00: MOUTH TWICE A Medical DAY Branch TOPIRAMATE 2020-0 Yes [id number] TAKE 1 [facility] 25 mg 5-29 TABLET BY ity of tablet 00:00: MOUTH TWICE A Medical DAY Branch TOPIRAMATE 2020-0 Yes [id number] TAKE 1 [facility] 25 mg 5-29 TABLET BY ity of tablet 00:00: MOUTH 00 TWICE A Medical DAY Branch TOPIRAMATE 2020-0 Yes [id number] TAKE 1 [facility] 25 mg 5-29 TABLET BY ity of tablet 00:00: MOUTH TWICE A Medical DAY Branch TOPIRAMATE 2020-0 Yes [id number] TAKE 1 [facility] 25 mg 5-29 TABLET BY ity of tablet 00:00: MOUTH TWICE A Medical DAY Branch TOPIRAMATE 2020-0 Yes [id number] TAKE 1 [facility] 25 mg 5-29 TABLET BY ity of tablet 00:00: TWICE A Medical DAY Branch TOPIRAMATE 2020-0 Yes [id number] TAKE 1 [facility] 25 mg 5-29 TABLET BY ity of tablet 00:00: TWICE A Medical DAY Branch TOPIRAMATE 2020-0 Yes [id number] TAKE 1 [facility] 25 mg 5-29 TABLET BY ity of tablet 00:00: TWICE A Medical DAY Branch TOPIRAMATE 2020-0 Yes [id number] TAKE 1 [facility] 25 mg 5-29 TABLET BY ity of tablet 00:00: TWICE A Medical DAY Branch TOPIRAMATE 2020-0 Yes [id number] TAKE 1 [facility] 25 mg 5-29 TABLET BY ity of tablet 00:00: TWICE A Medical DAY Branch TOPIRAMATE 2020-0 Yes [id number] TAKE 1 [facility] 25 mg 5-29 TABLET BY ity of tablet 00:00: TWICE A Medical DAY Branch topiramate 2020-0 Yes [id number] 50mg Take 1 [facility] 50 mg 2-05 tablet by ity of tablet 00:00: [facility] (two) Medical times Branch daily. topiramate 2020-0 Yes [id number] 50mg Take 1 [facility] 50 mg 2-05 tablet by ity of tablet 00:00: [facility] (two) Medical times Branch daily. topiramate 2020-0 Yes [id number] 50mg Take 1 [facility] 50 mg 2-05 tablet by ity of tablet 00:00: [facility] (two) Medical times Branch daily. topiramate 2020-0 Yes [id number] 50mg Take 1 [facility] 50 mg 2-05 tablet by ity of tablet 00:00: mouth (two) Medical times Branch daily. topiramate 2020-0 Yes [id number] 50mg Take 1 [facility] 50 mg 2-05 tablet by ity of tablet 00:00: [facility] (two) Medical times Branch daily. topiramate 2020-0 Yes [id number] 50mg Take 1 [facility] 50 mg 2-05 tablet by ity of tablet 00:00: mouth (two) Medical times Branch daily. topiramate 2020-0 Yes [id number] 50mg Take 1 [facility] 50 mg 2-05 tablet by ity of tablet 00:00: mouth (two) Medical times Branch daily. topiramate 2020-0 Yes [id number] 50mg Take 1 [facility] 50 mg 2-05 tablet by ity of tablet 00:00: mouth (two) Medical times Branch daily. topiramate 2020-0 Yes [id number] 50mg Take 1 [facility] 50 mg 2-05 tablet by ity of tablet 00:00: mouth (two) Medical times Branch daily. topiramate 2020-0 Yes [id number] 50mg Take 1 [facility] 50 mg 2-05 tablet by ity of tablet 00:00: mouth (two) Medical times Branch daily. topiramate 2020-0 Yes [id number] 50mg Take 1 [facility] 50 mg 2-05 tablet by ity of tablet 00:00: mouth (two) Medical times Branch daily. topiramate 2020-0 Yes [id number] 50mg Take 1 [facility] 50 mg 2-05 tablet by ity of tablet 00:00: mouth (two) Medical times Branch daily. topiramate 2020-0 Yes [id number] 50mg Take 1 [facility] 50 mg 2-05 tablet by ity of tablet 00:00: mouth (two) Medical times Branch daily. topiramate 2020-0 Yes [id number] 50mg Take 1 [facility] 50 mg 2-05 tablet by ity of tablet 00:00: mouth (two) Medical times Branch daily. topiramate 2020-0 Yes [id number] 50mg Take 1 [facility] 50 mg 2-05 tablet by ity of tablet 00:00: mouth (two) Medical times Branch daily. topiramate 2020-0 Yes [id number] 50mg Take 1 [facility] 50 mg 2-05 tablet by ity of tablet 00:00: mouth (two) Medical times Branch daily. topiramate 2020-0 Yes [id number] 50mg Take 1 [facility] 50 mg 2-05 tablet by ity of tablet 00:00: mouth (two) Medical times Branch daily. topiramate 2020-0 Yes [id number] 50mg Take 1 [facility] 50 mg 2-05 tablet by ity of tablet 00:00: mouth (two) Medical times Branch daily. topiramate 2020-0 Yes [id number] 50mg Take 1 [facility] 50 mg 2-05 tablet by ity of tablet 00:00: mouth (two) Medical times Branch daily. topiramate 2020-0 Yes [id number] 50mg Take 1 [facility] 50 mg 2-05 tablet by ity of tablet 00:00: mouth (two) Medical times Branch daily. topiramate 2020-0 Yes [id number] 50mg Take 1 [facility] 50 mg 2-05 tablet by ity of tablet 00:00: mouth (two) Medical times Branch daily. topiramate 2020-0 Yes [id number] 50mg Take 1 [facility] 50 mg 2-05 tablet by ity of tablet 00:00: mouth (two) Medical times Branch daily. topiramate 2020-0 Yes [id number] 50mg Take 1 [facility] 50 mg 2-05 tablet by ity of tablet 00:00: mouth (two) Medical times Branch daily. topiramate 2020-0 Yes [id number] 50mg Take 1 [facility] 50 mg 2-05 tablet by ity of tablet 00:00: mouth (two) Medical times Branch daily. topiramate 2020-0 Yes [id number] 50mg Take 1 [facility] 50 mg 2-05 tablet by ity of tablet 00:00: mouth (two) Medical times Branch daily. topiramate 2020-0 Yes [id number] 50mg Take 1 [facility] 50 mg 2-05 tablet by ity of tablet 00:00: mouth (two) Medical times Branch daily. topiramate 2020-0 Yes [id number] 50mg Take 1 [facility] 50 mg 2-05 tablet by ity of tablet 00:00: mouth (two) Medical times Branch daily. topiramate 2020-0 Yes [id number] 50mg Take 1 [facility] 50 mg 2-05 tablet by ity of tablet 00:00: mouth (two) Medical times Branch daily. topiramate 2020-0 Yes [id number] 50mg Take 1 [facility] 50 mg 2-05 tablet by ity of tablet 00:00: mouth (two) Medical times Branch daily. topiramate 2020-0 Yes [id number] 50mg Take 1 [facility] 50 mg 2-05 tablet by ity of tablet 00:00: mouth 2 [place] [id number] (two) Medical times Branch daily. fluticasone 2018-06 Yes 1{spray QD [address] [facility] propionate 1-11 } Nasal [facility] (FLONASE) 11:26: route Medical 50 49 daily. Center mcg/actuati on nasal spray l-methylfol 2018-06 Yes 1{tbl} QD Take [address] ate-b2-b6-b 1-04 tablet by Sanje[facility] es 12 14:14: mouth Medical (CEREFOLIN) 28 daily. Center 6-5-50-1 mg Tab nitroglycer 2018-[address] [facility] in 0-17 TABLET [facility] (NITROSTAT) 00:00: UNDER Medic al 0.4 MG SL 00 TONGUE Center tablet EVERY 5 MINS, UP TO 3 DOSES NEEDED FOR CHEST PAIN omeprazole 2018-06 Yes 40mg Take 40 mg U [facility] 40 mg 0-14 by mouth ity of capsule 00:00: daily. [address] omeprazole 2018-06 Yes 40mg Take 40 mg U nivers 40 mg 0-14 by mouth ity of capsule 00:00: daily. [address] omeprazole 2018-06 Yes 40mg Take 40 mg U nivers 40 mg 0-14 by mouth ity of capsule 00:00: daily. [address] omeprazole 2018-06 Yes 40mg Take 40 mg U nivers 40 mg 0-14 by mouth ity of capsule 00:00: daily. [address] omeprazole 2018-06 Yes 40mg Take 40 mg U nivers 40 mg 0-14 by mouth ity of capsule 00:00: daily. [address] omeprazole 2018-06 Yes 40mg Take 40 mg U nivers 40 mg 0-14 by mouth ity of capsule 00:00: daily. [address] omeprazole 2018-06 Yes 40mg Take 40 mg U nivers 40 mg 0-14 by mouth ity of capsule 00:00: daily. [address] omeprazole 2018-06 Yes 40mg Take 40 mg U nivers 40 mg 0-14 by mouth ity of capsule 00:00: daily. [address] omeprazole 2018-06 Yes 40mg Take 40 mg U nivers 40 mg 0-14 by mouth ity of capsule 00:00: daily. [address] omeprazole 2018-06 Yes 40mg Take 40 mg U nivers 40 mg 0-14 by mouth ity of capsule 00:00: daily. [place] [facility] omeprazole 2018- Yes 40mg Take 40 mg U nivers 40 mg 0-14 by mouth ity of capsule 00:00: daily. [place] [facility] omeprazole 2018- Yes 40mg Take 40 mg U nivers 40 mg 0-14 by mouth ity of capsule 00:00: daily. [place] [facility] omeprazole 2018- Yes 40mg Take 40 mg U nivers 40 mg 0-14 by mouth ity of capsule 00:00: daily. [place] [facility] omeprazole 2018-06 Yes 40mg Take 40 mg U nivers 40 mg 0-14 by mouth ity of capsule 00:00: daily. [address] omeprazole 2018-06 Yes 40mg Take 40 mg U nivers 40 mg 0-14 by mouth ity of capsule 00:00: daily. [address] omeprazole 2018-06 Yes 40mg Take 40 mg U nivers 40 mg 0-14 by mouth ity of capsule 00:00: daily. [place] [facility] omeprazole 2018-06 Yes 40mg Take 40 mg U nivers 40 mg 0-14 by mouth ity of capsule 00:00: daily. [place] [facility] omeprazole 2018- Yes 40mg Take 40 mg U nivers 40 mg 0-14 by mouth ity of capsule 00:00: daily. [address] omeprazole 2018- Yes 40mg Take 40 mg U nivers 40 mg 0-14 by mouth ity of capsule 00:00: daily. [address] omeprazole 2018- Yes 40mg Take 40 mg U nivers 40 mg 0-14 by mouth ity of capsule 00:00: daily. [address] omeprazole 2018- Yes 40mg Take 40 mg U nivers 40 mg 0-14 by mouth ity of capsule 00:00: daily. [address] omeprazole 2018- Yes 40mg Take 40 mg U nivers 40 mg 0-14 by mouth ity of capsule 00:00: daily. [address] omeprazole 2018- Yes 40mg Take 40 mg U nivers 40 mg 0-14 by mouth ity of capsule 00:00: daily. [address] omeprazole 2018- Yes 40mg Take 40 mg U nivers 40 mg 0-14 by mouth ity of capsule 00:00: daily. [address] omeprazole 2018-06 Yes 40mg Take 40 mg U nivers 40 mg 0-14 by mouth ity of capsule 00:00: daily. [place] [facility] omeprazole 2018-06 Yes 40mg Take 40 mg U nivers 40 mg 0-14 by mouth ity of capsule 00:00: daily. [address] omeprazole 2018-06 Yes 40mg Take 40 mg U nivers 40 mg 0-14 by mouth ity of capsule 00:00: daily. [address] omeprazole 2018-06 Yes 40mg Take 40 mg U nivers 40 mg 0-14 by mouth ity of capsule 00:00: daily. [address] omeprazole 2018-06 Yes 40mg Take 40 mg U nivers 40 mg 0-14 by mouth ity of capsule 00:00: daily. [address] omeprazole 2018-06 Yes 40mg Take 40 mg U nivers 40 mg 0-14 by mouth ity of capsule 00:00: daily. [address] omeprazole 2018-06 Yes 40mg QD Take [address] (PRILOSEC) 0-14 by mouth [facility] 40 MG 00:00: daily. Medical [place] [id number] Center traZODone Yes TAKE 1/2 [facility] ers 50 mg 9-23 TO 1 ity of tablet 00:00: TABLET BY [address] EVERY DAY Branch AT BEDTIME FOR SLEEP traZODone Yes TAKE 1/2 Univ ers 50 mg 9-23 TO 1 ity of tablet 00:00: TABLET BY [address] EVERY DAY Branch AT BEDTIME FOR SLEEP traZODone Yes TAKE 1/2 Univ ers 50 mg 9-23 TO 1 ity of tablet 00:00: TABLET BY [address] EVERY DAY Branch AT BEDTIME FOR SLEEP traZODone Yes TAKE 1/2 Univ ers 50 mg 9-23 TO 1 ity of tablet 00:00: TABLET BY [address] EVERY DAY Branch AT BEDTIME FOR SLEEP traZODone Yes TAKE 1/2 Univ ers 50 mg 9-23 TO 1 ity of tablet 00:00: TABLET BY [address] EVERY DAY Branch AT BEDTIME FOR SLEEP traZODone Yes TAKE 1/2 Univ ers 50 mg 9-23 TO 1 ity of tablet 00:00: TABLET BY [place] [address] MOUTH [facility] EVERY DAY Branch AT BEDTIME FOR SLEEP traZODone 2019-0 Yes TAKE 1/2 Univ ers 50 mg 9-23 TO 1 ity of tablet 00:00: TABLET BY [address] EVERY DAY Branch AT BEDTIME FOR SLEEP traZODone 2019-0 Yes TAKE 1/2 Univ ers 50 mg 9-23 TO 1 ity of tablet 00:00: TABLET BY [address] EVERY DAY Branch AT BEDTIME FOR SLEEP traZODone 2019-0 Yes TAKE 1/2 Univ ers 50 mg 9-23 TO 1 ity of tablet 00:00: TABLET BY [address] EVERY DAY Branch AT BEDTIME FOR SLEEP traZODone 2019-0 Yes TAKE 1/2 Univ ers 50 mg 9-23 TO 1 ity of tablet 00:00: TABLET BY [address] EVERY DAY Branch AT BEDTIME FOR SLEEP traZODone 2019-0 Yes TAKE 1/2 Univ ers 50 mg 9-23 TO 1 ity of tablet 00:00: TABLET BY [address] EVERY DAY Branch AT BEDTIME FOR SLEEP traZODone 2019-0 Yes TAKE 1/2 Univ ers 50 mg 9-23 TO 1 ity of tablet 00:00: TABLET BY [address] EVERY DAY Branch AT BEDTIME FOR SLEEP traZODone 2019-0 Yes TAKE 1/2 Univ ers 50 mg 9-23 TO 1 ity of tablet 00:00: TABLET BY [address] EVERY DAY Branch AT BEDTIME FOR SLEEP traZODone 2019-0 Yes TAKE 1/2 Univ ers 50 mg 9-23 TO 1 ity of tablet 00:00: TABLET BY [address] EVERY DAY Branch AT BEDTIME FOR SLEEP traZODone 2019-0 Yes TAKE 1/2 Univ ers 50 mg 9-23 TO 1 ity of tablet 00:00: TABLET BY [place] [address] MOUTH [facility] EVERY DAY Branch AT BEDTIME FOR SLEEP traZODone 2019-0 Yes TAKE 1/2 Univ ers 50 mg 9-23 TO 1 ity of tablet 00:00: TABLET BY [address] EVERY DAY Branch AT BEDTIME FOR SLEEP traZODone 2019-0 Yes TAKE 1/2 Univ ers 50 mg 9-23 TO 1 ity of tablet 00:00: TABLET BY [place] 00 MOUTH Medical EVERY DAY Branch AT BEDTIME FOR SLEEP traZODone 2019-0 Yes TAKE 1/2 Univ ers 50 mg 9-23 TO 1 ity of tablet 00:00: TABLET BY [address] EVERY DAY Branch AT BEDTIME FOR SLEEP traZODone 2019-0 Yes TAKE 1/2 Univ ers 50 mg 9-23 TO 1 ity of tablet 00:00: TABLET BY [address] EVERY DAY Branch AT BEDTIME FOR SLEEP traZODone [id number] Yes TAKE 1/2 Univ ers 50 mg 9-23 TO 1 ity of tablet 00:00: TABLET BY [address] EVERY DAY Branch AT BEDTIME FOR SLEEP traZODone [id number] Yes TAKE 1/2 Univ ers 50 mg 9-23 TO 1 ity of tablet 00:00: TABLET BY [address] EVERY DAY Branch AT BEDTIME FOR SLEEP traZODone 2019- Yes TAKE 1/2 Univ ers 50 mg 9-23 TO 1 ity of tablet 00:00: TABLET BY [address] EVERY DAY Branch AT BEDTIME FOR SLEEP traZODone 2019-0 Yes TAKE 1/2 Univ ers 50 mg 9-23 TO 1 ity of tablet 00:00: TABLET BY [address] EVERY DAY Branch AT BEDTIME FOR SLEEP traZODone 2019-0 Yes TAKE 1/2 Univ ers 50 mg 9-23 TO 1 ity of tablet 00:00: TABLET BY [address] EVERY DAY Branch AT BEDTIME FOR SLEEP traZODone 2019-0 Yes TAKE 1/2 Univ ers 50 mg 9-23 TO 1 ity of tablet 00:00: TABLET BY [address] EVERY DAY Branch AT BEDTIME FOR SLEEP traZODone 2019-0 Yes TAKE 1/2 Univ ers 50 mg 9-23 TO 1 ity of tablet 00:00: TABLET BY [address] EVERY DAY Branch AT BEDTIME FOR SLEEP traZODone 2019-0 Yes TAKE 1/2 Univ ers 50 mg 9-23 TO 1 ity of tablet 00:00: TABLET BY [address] EVERY DAY Branch AT BEDTIME FOR SLEEP traZODone 2019-0 Yes TAKE 1/2 Univ ers 50 mg 9-23 TO 1 ity of tablet 00:00: TABLET BY [address] EVERY DAY Branch AT BEDTIME FOR SLEEP traZODone 2019-0 Yes TAKE 1/2 Univ ers 50 mg 9-23 TO 1 ity of tablet 00:00: TABLET BY [place] [address] MOUTH Medical EVERY DAY Branch AT BEDTIME FOR SLEEP traZODone Yes TAKE 1/2 Univ ers 50 mg 03-04 TO 1 ity of tablet 00:00: TABLET BY [place] [address] MOUTH Medical EVERY DAY [place] AT BEDTIME FOR SLEEP traZODone Yes 50mg QD Take [address] (DESYREL) 03-04 by mouth [facility] 50 MG 00:00: nightly. Medical tablet 00 [place] escitalopra Yes 20mg Take 20 mg [facility] m oxalate 9-21 by mouth. ity o f 20 mg 00:00: [place] tablet [facility] escitalopra Yes 20mg Take 20 mg Univers m oxalate 9-21 by mouth. ity o f 20 mg 00:00: [place] tablet [facility] escitalopra Yes 20mg Take 20 mg Univers m oxalate 9-21 by mouth. ity o f 20 mg 00:00: [place] tablet [facility] escitalopra Yes 20mg Take 20 mg Univers m oxalate 9-21 by mouth. ity o f 20 mg 00:00: [place] tablet [facility] escitalopra Yes 20mg Take 20 mg [facility] m oxalate 9-21 by mouth. ity o f 20 mg 00:00: [place] tablet [facility] escitalopra Yes 20mg Take 20 mg [facility] m oxalate 9-21 by mouth. ity o f 20 mg 00:00: [place] tablet [facility] escitalopra Yes 20mg Take 20 mg [facility] m oxalate 9-21 by mouth. ity o f 20 mg 00:00: [place] tablet [facility] escitalopra Yes 20mg Take 20 mg Univers m oxalate 9-21 by mouth. ity o f 20 mg 00:00: [place] tablet [facility] escitalopra Yes 20mg Take 20 mg Univers m oxalate 9-21 by mouth. ity o f 20 mg 00:00: [place] tablet 00 [facility] escitalopra Yes 20mg Take 20 mg [facility] m oxalate 9-21 by mouth. ity o f 20 mg 00:00: [place] tablet 00 [facility] escitalopra 2018- Yes 20mg Take 20 mg Univers m oxalate 9-21 by mouth. ity o f 20 mg 00:00: [place] tablet 00 [facility] escitalopra 0 Yes 20mg Take 20 mg [facility] m oxalate 9-21 by mouth. ity o f 20 mg 00:00: [place] tablet [facility] escitalopra 0 Yes 20mg Take 20 mg [facility] m oxalate 9-21 by mouth. ity o f 20 mg 00:00: [place] tablet [facility] escitalopra 2018-0 Yes 20mg Take 20 mg [facility] m oxalate 9-21 by mouth. ity o f 20 mg 00:00: [place] tablet [facility] escitalopra 0 Yes 20mg Take 20 mg Univers m oxalate 9-21 by mouth. ity o f 20 mg 00:00: [place] tablet [facility] escitalopra 0 Yes 20mg Take 20 mg Univers m oxalate 9-21 by mouth. ity o f 20 mg 00:00: [place] tablet [facility] escitalopra 0 Yes 20mg Take 20 mg Univers m oxalate 9-21 by mouth. ity o f 20 mg 00:00: [place] tablet [facility] escitalopra 0 Yes 20mg Take 20 mg Univers m oxalate 9-21 by mouth. ity o f 20 mg 00:00: [place] tablet [facility] escitalopra 0 Yes 20mg Take 20 mg Univers m oxalate 9-21 by mouth. ity o f 20 mg 00:00: [place] tablet [facility] escitalopra 0 Yes 20mg Take 20 mg [facility] m oxalate 9-21 by mouth. ity o f 20 mg 00:00: [place] tablet [facility] escitalopra 2018-0 Yes 20mg Take 20 mg Univers m oxalate 9-21 by mouth. ity o f 20 mg 00:00: [place] tablet [facility] escitalopra 0 Yes 20mg Take 20 mg Univers m oxalate 9-21 by mouth. ity o f 20 mg 00:00: [place] tablet 00 [facility] escitalopra 2018-0 Yes 20mg Take 20 mg Univers m oxalate 9-21 by mouth. ity o f 20 mg 00:00: [place] tablet 00 [facility] escitalopra 2018-0 Yes 20mg Take 20 mg [facility] m oxalate 9-21 by mouth. ity o f 20 mg 00:00: [place] tablet [facility] escitalopra 2019-0 Yes 20mg Take 20 mg [facility] m oxalate 9-21 by mouth. ity o f 20 mg 00:00: [place] tablet 00 [facility] escitalopra 2018-0 Yes 20mg Take 20 mg Univers m oxalate 9-21 by mouth. ity o f 20 mg 00:00: [place] tablet 00 [facility] escitalopra 2018-0 Yes 20mg Take 20 mg Univers m oxalate 9-21 by mouth. ity o f 20 mg 00:00: [place] tablet 00 [facility] escitalopra 2018-0 Yes 20mg Take 20 mg Univers m oxalate 9-21 by mouth. ity o f 20 mg 00:00: [place] tablet 00 [facility] escitalopra Yes 20mg Take 20 mg Univers m oxalate 9-21 by mouth. ity o f 20 mg 00:00: [place] tablet 00 [facility] escitalopra Yes 20mg Take 20 mg Univers m oxalate 9-21 by mouth. ity o f 20 mg 00:00: [place] tablet 00 [facility] buPROPion Yes 300mg QD Take [address] [facility] (WELLBUTRIN 9-21 mg by [facility] XL) 300 MG 00:00: mouth Medica l 24 hr 00 every Center tablet morning. escitalopra Yes 20mg QD Take [address] [facility] m oxalate 9-21 by mouth [facility] (LEXAPRO) 00:00: daily. Medica l 20 MG 00 Center tablet buPROPion Yes TAKE 1 [facility] XL 300 mg 4-25 TABLET BY ity o f 24 hr 00:00: MOUTH [place] tablet 00 EVERY DAY Medical IN THE [place] MORNING buPROPion Yes TAKE 1 [facility] XL 300 mg 4-25 TABLET BY ity o f 24 hr 00:00: MOUTH [place] tablet 00 EVERY DAY Medical IN THE [place] MORNING buPROPion Yes TAKE 1 [facility] XL 300 mg 4-25 TABLET BY ity o f 24 hr 00:00: MOUTH [place] tablet 00 EVERY DAY Medical IN THE [place] MORNING buPROPion Yes TAKE 1 [facility] XL 300 mg 4-25 TABLET BY ity o f 24 hr 00:00: MOUTH [place] tablet 00 EVERY DAY Medical IN THE [place] MORNING buPROPion Yes TAKE 1 [facility] XL 300 mg 4-25 TABLET BY ity o f 24 hr 00:00: MOUTH [place] tablet 00 EVERY DAY Medical IN THE [facility] buPROPion Yes TAKE 1 Univer s XL 300 mg 4-25 TABLET BY ity o f 24 hr 00:00: MOUTH [place] tablet 00 EVERY DAY Medical IN THE [facility] buPROPion Yes TAKE 1 Univer s XL 300 mg 4-25 TABLET BY ity o f 24 hr 00:00: MOUTH [place] tablet 00 EVERY DAY Medical IN THE [facility] buPROPion Yes TAKE 1 Un[facility] s XL 300 mg 4-25 TABLET BY ity o f 24 hr 00:00: MOUTH [place] tablet 00 EVERY DAY Medical IN THE [facility] buPROPion Yes TAKE 1 Univer s XL 300 mg 4-25 TABLET BY ity o f 24 hr 00:00: MOUTH [place] tablet 00 EVERY DAY Medical IN THE [facility] buPROPion Yes TAKE 1 Univer s XL 300 mg 4-25 TABLET BY ity o f 24 hr 00:00: MOUTH [place] tablet 00 EVERY DAY Medical IN THE [facility] buPROPion Yes TAKE 1 Univer s XL 300 mg 4-25 TABLET BY ity o f 24 hr 00:00: MOUTH [place] tablet 00 EVERY DAY Medical IN THE [facility] buPROPion Yes TAKE 1 Univer s XL 300 mg 4-25 TABLET BY ity o f 24 hr 00:00: MOUTH [place] tablet 00 EVERY DAY Medical IN THE [facility] buPROPion Yes TAKE 1 Univer s XL 300 mg 4-25 TABLET BY ity o f 24 hr 00:00: MOUTH [place] tablet 00 EVERY DAY Medical IN THE [facility] buPROPion Yes TAKE 1 Univer s XL 300 mg 4-25 TABLET BY ity o f 24 hr 00:00: MOUTH [place] tablet 00 EVERY DAY Medical IN THE [facility] buPROPion Yes TAKE 1 Univer s XL 300 mg 4-25 TABLET BY ity o f 24 hr 00:00: MOUTH [place] tablet 00 EVERY DAY Medical IN THE [facility] buPROPion Yes TAKE 1 [facility] XL 300 mg 4-25 TABLET BY ity o f 24 hr 00:00: MOUTH [place] tablet 00 EVERY DAY Medical IN THE [facility] buPROPion Yes TAKE 1 [facility] XL 300 mg 4-25 TABLET BY ity o f 24 hr 00:00: MOUTH [place] tablet 00 EVERY DAY Medical IN THE [facility] buPROPion Yes TAKE 1 [facility] XL 300 mg 4-25 TABLET BY ity o f 24 hr 00:00: MOUTH [place] tablet 00 EVERY DAY Medical IN THE [facility] buPROPion Yes TAKE 1 [facility] XL 300 mg 4-25 TABLET BY ity o f 24 hr 00:00: MOUTH [place] tablet 00 EVERY DAY Medical IN THE [facility] buPROPion Yes TAKE 1 [facility] XL 300 mg 4-25 TABLET BY ity o f 24 hr 00:00: MOUTH [place] tablet 00 EVERY DAY Medical IN THE [facility] buPROPion Yes TAKE 1 [facility] XL 300 mg 4-25 TABLET BY ity o f 24 hr 00:00: MOUTH [place] tablet 00 EVERY DAY Medical IN THE [facility] buPROPion Yes TAKE 1 [facility] XL 300 mg 4-25 TABLET BY ity o f 24 hr 00:00: MOUTH [place] tablet 00 EVERY DAY Medical IN THE [facility] buPROPion Yes TAKE 1 [facility] XL 300 mg 4-25 TABLET BY ity o f 24 hr 00:00: MOUTH [place] tablet 00 EVERY DAY Medical IN THE [facility] buPROPion Yes TAKE 1 [facility] XL 300 mg 4-25 TABLET BY ity o f 24 hr 00:00: MOUTH [place] tablet 00 EVERY DAY Medical IN THE [facility] buPROPion Yes TAKE 1 [facility] XL 300 mg 4-25 TABLET BY ity o f 24 hr 00:00: MOUTH [place] tablet 00 EVERY DAY Medical IN THE [facility] buPROPion Yes TAKE 1 [facility] XL 300 mg 4-25 TABLET BY ity o f 24 hr 00:00: MOUTH [place] tablet 00 EVERY DAY Medical IN THE [facility] buPROPion Yes TAKE 1 [facility] XL 300 mg 4-25 TABLET BY ity o f 24 hr 00:00: MOUTH [place] tablet 00 EVERY DAY Medical IN THE [facility] buPROPion Yes TAKE 1 [facility] XL 300 mg 4-25 TABLET BY ity o f 24 hr 00:00: MOUTH [place] tablet 00 EVERY DAY Medical IN THE [facility] buPROPion Yes TAKE 1 [facility] XL 300 mg 4-25 TABLET BY ity o f 24 hr 00:00: MOUTH [place] tablet 00 EVERY DAY Medical IN THE [facility] buPROPion 2019-0 Yes TAKE 1 [facility] XL 300 mg 4-25 TABLET BY ity o f 24 hr 00:00: MOUTH [place] tablet 00 EVERY DAY Medical IN THE [place] MORNING benazepril 2017-0 Yes 10mg Take 10 mg U nivers 10 mg 5-03 by mouth ity of tablet 00:00: daily. [place] [facility] benazepril 2017-0 Yes 10mg Take 10 mg U nivers 10 mg 5-03 by mouth ity of tablet 00:00: daily. [place] [facility] benazepril 2017-0 Yes 10mg Take 10 mg U nivers 10 mg 5-03 by mouth ity of tablet 00:00: daily. [place] [facility] benazepril 2017-0 Yes 10mg Take 10 mg U nivers 10 mg 5-03 by mouth ity of tablet 00:00: daily. [place] [facility] benazepril 2017-0 Yes 10mg Take 10 mg U nivers 10 mg 5-03 by mouth ity of tablet 00:00: daily. [place] [facility] benazepril 2017-0 Yes 10mg Take 10 mg U nivers 10 mg 5-03 by mouth ity of tablet 00:00: daily. [place] [facility] benazepril 2017-0 Yes 10mg Take 10 mg U nivers 10 mg 5-03 by mouth ity of tablet 00:00: daily. [place] [facility] benazepril 2017-0 Yes 10mg Take 10 mg U nivers 10 mg 5-03 by mouth ity of tablet 00:00: daily. [address] benazepril 2017-0 Yes 10mg Take 10 mg U nivers 10 mg 5-03 by mouth ity of tablet 00:00: daily. [place] [facility] benazepril 2017-0 Yes 10mg Take 10 mg U nivers 10 mg 5-03 by mouth ity of tablet 00:00: daily. [address] benazepril 2018-0 Yes 10mg Take 10 mg U nivers 10 mg 5-03 by mouth ity of tablet 00:00: daily. [place] [facility] benazepril 2017-0 Yes 10mg Take 10 mg U nivers 10 mg 5-03 by mouth ity of tablet 00:00: daily. [address] benazepril 2017-0 Yes 10mg Take 10 mg U nivers 10 mg 5-03 by mouth ity of tablet 00:00: daily. [facility] benazepril 2018-0 Yes 10mg Take 10 mg U nivers 10 mg 5-03 by mouth ity of tablet 00:00: daily. [facility] benazepril 2018-0 Yes 10mg Take 10 mg U nivers 10 mg 5-03 by mouth ity of tablet 00:00: daily. [facility] benazepril 2018-0 Yes 10mg Take 10 mg U nivers 10 mg 5-03 by mouth ity of tablet 00:00: daily. [facility] benazepril 2018-0 Yes 10mg Take 10 mg U nivers 10 mg 5-03 by mouth ity of tablet 00:00: daily. [facility] benazepril 2018-0 Yes 10mg Take 10 mg U nivers 10 mg 5-03 by mouth ity of tablet 00:00: daily. [facility] benazepril 2018-0 Yes 10mg Take 10 mg U nivers 10 mg 5-03 by mouth ity of tablet 00:00: daily. [facility] benazepril 2018-0 Yes 10mg Take 10 mg U nivers 10 mg 5-03 by mouth ity of tablet 00:00: daily. [facility] benazepril 2018-0 Yes 10mg Take 10 mg U nivers 10 mg 5-03 by mouth ity of tablet 00:00: daily. [facility] benazepril 2018-0 Yes 10mg Take 10 mg U nivers 10 mg 5-03 by mouth ity of tablet 00:00: daily. [facility] benazepril 2018-0 Yes 10mg Take 10 mg U nivers 10 mg 5-03 by mouth ity of tablet 00:00: daily. [facility] benazepril 2018-0 Yes 10mg Take 10 mg U nivers 10 mg 5-03 by mouth ity of tablet 00:00: daily. [facility] benazepril 2018-0 Yes 10mg Take 10 mg U nivers 10 mg 5-03 by mouth ity of tablet 00:00: daily. [facility] benazepril 2018-0 Yes 10mg Take 10 mg U nivers 10 mg 5-03 by mouth ity of tablet 00:00: daily. [facility] benazepril 2018-0 Yes 10mg Take 10 mg U nivers 10 mg 5-03 by mouth ity of tablet 00:00: daily. [place] [facility] benazepril 2018-0 Yes 10mg Take 10 mg U nivers 10 mg 5-03 by mouth ity of tablet 00:00: daily. [place] [facility] benazepril 0 Yes 10mg Take 10 mg U nivers 10 mg 5-03 by mouth ity of tablet 00:00: daily. [place] [facility] benazepril [id number] Yes 10mg Take 10 mg U nivers 10 mg 5-03 by mouth ity of tablet 00:00: daily. [place] [facility] Tamsulosin Tamsulosin No 1{capsu QD Tamsulosin HCl 0.4 MG HCl 0.4 MG le} HCl 0.4 MG Pantoprazol Pantoprazol No 1{table QD Pantoprazo e Sodium 40 e Sodium 40 t} le Sodium MG MG 40 MG Mirtazapine Mirtazapine No 1{table QD Mirtazapin 30 MG 30 MG t_at_be e 30 MG dtime} Omeprazole Omeprazole No Omeprazole 40 MG 40 MG 40 MG Multivitami Multivitami No Multivitam n n in Xanax 0.5 Xanax 0.5 No 1{table BID Xanax 0.5 MG MG t} MG traZODone traZODone No traZODone HCl 50 MG HCl 50 MG HCl 50 MG Escitalopra Escitalopra No 1{table QD Escitalopr m Oxalate m Oxalate t} am Oxalate 10 MG 10 MG 10 MG Atorvastati Atorvastati No Atorvastat n Calcium n Calcium in Calcium Metoprolol Metoprolol No Metoprolol Tartrate Tartrate Tartrate Benazepril Benazepril No 1{table QD Benazepril HCl 10 MG HCl 10 MG t} HCl 10 MG Ciprofloxac Ciprofloxac No 1{table BID Ciprofloxa in HCl 500 in HCl 500 t} philomena HCl MG MG 500 MG Benazepril Benazepril No 1{table QD Benazepril HCl 10 MG HCl 10 MG t} HCl 10 MG buPROPion buPROPion No buPROPion HCl ER (XL) HCl ER (XL) HCl ER 300 MG 300 MG (XL) 300 MG traZODone traZODone No traZODone HCl 50 MG HCl 50 MG HCl 50 MG Low-Dose Low-Dose No Low-Dose Aspirin Aspirin Aspirin Tamsulosin Tamsulosin No 1{capsu QD Tamsulosin HCl 0.4 MG HCl 0.4 MG le} HCl 0.4 MG Pantoprazol Pantoprazol No 1{table QD Pantoprazo e Sodium 40 e Sodium 40 t} le Sodium MG MG 40 MG Mirtazapine Mirtazapine No 1{table QD Mirtazapin 30 MG 30 MG t_at_be e 30 MG dtime} ALPRAZolam ALPRAZolam No ALPRAZolam Escitalopra Escitalopra No 1{table QD Escitalopr m Oxalate m Oxalate t} am Oxalate 10 MG 10 MG 10 MG Metoprolol Metoprolol No Metoprolol Tartrate Tartrate Tartrate Omeprazole Omeprazole No Omeprazole 40 MG 40 MG 40 MG Atorvastati Atorvastati No Atorvastat n Calcium n Calcium in Calcium Multivitami Multivitami No Multivitam n n in Xanax 0.5 Xanax 0.5 No 1{table BID Xanax 0.5 MG MG t} MG Ciprofloxac Ciprofloxac No 1{table BID Ciprofloxa in HCl 500 in HCl 500 t} philomena HCl MG MG 500 MG Benazepril Benazepril No 1{table QD Benazepril HCl 10 MG HCl 10 MG t} HCl 10 MG buPROPion buPROPion No buPROPion HCl ER (XL) HCl ER (XL) HCl ER 300 MG 300 MG (XL) 300 MG traZODone traZODone No traZODone HCl 50 MG HCl 50 MG HCl 50 MG Low-Dose Low-Dose No Low-Dose Aspirin Aspirin Aspirin Tamsulosin Tamsulosin No 1{capsu QD Tamsulosin HCl 0.4 MG HCl 0.4 MG le} HCl 0.4 MG Pantoprazol Pantoprazol No 1{table QD Pantoprazo e Sodium 40 e Sodium 40 t} le Sodium MG MG 40 MG Mirtazapine Mirtazapine No 1{table QD Mirtazapin 30 MG 30 MG t_at_be e 30 MG dtime} ALPRAZolam ALPRAZolam No ALPRAZolam Escitalopra Escitalopra No 1{table QD Escitalopr m Oxalate m Oxalate t} am Oxalate 10 MG 10 MG 10 MG Metoprolol Metoprolol No Metoprolol Tartrate Tartrate Tartrate Omeprazole Omeprazole No Omeprazole 40 MG 40 MG 40 MG Atorvastati Atorvastati No Atorvastat n Calcium n Calcium in Calcium Multivitami Multivitami No Multivitam n n in Xanax 0.5 Xanax 0.5 No 1{table BID Xanax 0.5 MG MG t} MG Atorvastati Atorvastati No Atorvastat n Calcium n Calcium in Calcium Metoprolol Metoprolol No Metoprolol Tartrate Tartrate Tartrate Multivitami Multivitami No Multivitam n n in traZODone traZODone No traZODone HCl 50 MG HCl 50 MG HCl 50 MG Pantoprazol Pantoprazol No 1{table QD Pantoprazo e Sodium 40 e Sodium 40 t} le Sodium MG MG 40 MG Xanax 0.5 Xanax 0.5 No 1{table BID Xanax 0.5 MG MG t} MG Escitalopra Escitalopra No 1{table QD Escitalopr m Oxalate m Oxalate t} am Oxalate 10 MG 10 MG 10 MG Tamsulosin Tamsulosin No 1{capsu QD Tamsulosin HCl 0.4 MG HCl 0.4 MG le} HCl 0.4 MG Omeprazole Omeprazole No Omeprazole 40 MG 40 MG 40 MG Benazepril Benazepril No 1{table QD Benazepril HCl 10 MG HCl 10 MG t} HCl 10 MG buPROPion buPROPion No buPROPion HCl ER (XL) HCl ER (XL) HCl ER 300 MG 300 MG (XL) 300 MG Low-Dose Low-Dose No Low-Dose Aspirin Aspirin Aspirin Mirtazapine Mirtazapine No 1{table QD Mirtazapin 30 MG 30 MG t_at_be e 30 MG dtime} Ciprofloxac Ciprofloxac No 1{table BID Ciprofloxa in HCl 500 in HCl 500 t} philomena HCl MG MG 500 MG ALPRAZolam ALPRAZolam No ALPRAZolam Atorvastati Atorvastati No Atorvastat n Calcium n Calcium in Calcium Metoprolol Metoprolol No Metoprolol Tartrate Tartrate Tartrate Multivitami Multivitami No Multivitam n n in traZODone traZODone No traZODone HCl 50 MG HCl 50 MG HCl 50 MG Pantoprazol Pantoprazol No 1{table QD Pantoprazo e Sodium 40 e Sodium 40 t} le Sodium MG MG 40 MG Xanax 0.5 Xanax 0.5 No 1{table BID Xanax 0.5 MG MG t} MG Escitalopra Escitalopra No 1{table QD Escitalopr m Oxalate m Oxalate t} am Oxalate 10 MG 10 MG 10 MG Tamsulosin Tamsulosin No 1{capsu QD Tamsulosin HCl 0.4 MG HCl 0.4 MG le} HCl 0.4 MG Omeprazole Omeprazole No Omeprazole 40 MG 40 MG 40 MG Benazepril Benazepril No 1{table QD Benazepril HCl 10 MG HCl 10 MG t} HCl 10 MG buPROPion buPROPion No buPROPion HCl ER (XL) HCl ER (XL) HCl ER 300 MG 300 MG (XL) 300 MG Low-Dose Low-Dose No Low-Dose Aspirin Aspirin Aspirin Mirtazapine Mirtazapine No 1{table QD Mirtazapin 30 MG 30 MG t_at_be e 30 MG dtime} Ciprofloxac Ciprofloxac No 1{table BID Ciprofloxa in HCl 500 in HCl 500 t} philomena HCl MG MG 500 MG ALPRAZolam ALPRAZolam No ALPRAZolam Atorvastati Atorvastati No Atorvastat n Calcium n Calcium in Calcium Metoprolol Metoprolol No Metoprolol Tartrate Tartrate Tartrate Multivitami Multivitami No Multivitam n n in traZODone traZODone No traZODone HCl 50 MG HCl 50 MG HCl 50 MG Pantoprazol Pantoprazol No 1{table QD Pantoprazo e Sodium 40 e Sodium 40 t} le Sodium MG MG 40 MG Xanax 0.5 Xanax 0.5 No 1{table BID Xanax 0.5 MG MG t} MG Escitalopra Escitalopra No 1{table QD Escitalopr m Oxalate m Oxalate t} am Oxalate 10 MG 10 MG 10 MG Tamsulosin Tamsulosin No 1{capsu QD Tamsulosin HCl 0.4 MG HCl 0.4 MG le} HCl 0.4 MG Omeprazole Omeprazole No Omeprazole 40 MG 40 MG 40 MG Benazepril Benazepril No 1{table QD Benazepril HCl 10 MG HCl 10 MG t} HCl 10 MG buPROPion buPROPion No buPROPion HCl ER (XL) HCl ER (XL) HCl ER 300 MG 300 MG (XL) 300 MG Low-Dose Low-Dose No Low-Dose Aspirin Aspirin Aspirin Mirtazapine Mirtazapine No 1{table QD Mirtazapin 30 MG 30 MG t_at_be e 30 MG dtime} Ciprofloxac Ciprofloxac No 1{table BID Ciprofloxa in HCl 500 in HCl 500 t} philomena HCl MG MG 500 MG ALPRAZolam ALPRAZolam No ALPRAZolam Atorvastati Atorvastati No Atorvastat n Calcium n Calcium in Calcium Metoprolol Metoprolol No Metoprolol Tartrate Tartrate Tartrate Multivitami Multivitami No Multivitam n n in traZODone traZODone No traZODone HCl 50 MG HCl 50 MG HCl 50 MG Pantoprazol Pantoprazol No 1{table QD Pantoprazo e Sodium 40 e Sodium 40 t} le Sodium MG MG 40 MG Xanax 0.5 Xanax 0.5 No 1{table BID Xanax 0.5 MG MG t} MG Escitalopra Escitalopra No 1{table QD Escitalopr m Oxalate m Oxalate t} am Oxalate 10 MG 10 MG 10 MG Tamsulosin Tamsulosin No 1{capsu QD Tamsulosin HCl 0.4 MG HCl 0.4 MG le} HCl 0.4 MG Omeprazole Omeprazole No Omeprazole 40 MG 40 MG 40 MG Benazepril Benazepril No 1{table QD Benazepril HCl 10 MG HCl 10 MG t} HCl 10 MG buPROPion buPROPion No buPROPion HCl ER (XL) HCl ER (XL) HCl ER 300 MG 300 MG (XL) 300 MG Low-Dose Low-Dose No Low-Dose Aspirin Aspirin Aspirin Mirtazapine Mirtazapine No 1{table QD Mirtazapin 30 MG 30 MG t_at_be e 30 MG dtime} Ciprofloxac Ciprofloxac No 1{table BID Ciprofloxa in HCl 500 in HCl 500 t} philomena HCl MG MG 500 MG ALPRAZolam ALPRAZolam No ALPRAZolam Escitalopra Escitalopra No 1{table QD Escitalopr m Oxalate m Oxalate t} am Oxalate 10 MG 10 MG 10 MG Benazepril Benazepril No 1{table QD Benazepril HCl 10 MG HCl 10 MG t} HCl 10 MG Multivitami Multivitami No Multivitam n n in Ciprofloxac Ciprofloxac No 1{table BID Ciprofloxa in HCl 500 in HCl 500 t} philomena HCl MG MG 500 MG Omeprazole Omeprazole No Omeprazole 40 MG 40 MG 40 MG ALPRAZolam ALPRAZolam No ALPRAZolam traZODone traZODone No traZODone HCl 50 MG HCl 50 MG HCl 50 MG buPROPion buPROPion No buPROPion HCl ER (XL) HCl ER (XL) HCl ER 300 MG 300 MG (XL) 300 MG Mirtazapine Mirtazapine No 1{table QD Mirtazapin 30 MG 30 MG t_at_be e 30 MG dtime} Metoprolol Metoprolol No Metoprolol Tartrate Tartrate Tartrate Atorvastati Atorvastati No Atorvastat n Calcium n Calcium in Calcium Pantoprazol Pantoprazol No 1{table QD Pantoprazo e Sodium 40 e Sodium 40 t} le Sodium MG MG 40 MG IBUPROFEN IBUPROFEN No IBUPROFEN Xanax 0.5 Xanax 0.5 No 1{table BID Xanax 0.5 MG MG t} MG Low-Dose Low-Dose No Low-Dose Aspirin Aspirin Aspirin Tamsulosin Tamsulosin No 1{capsu QD Tamsulosin HCl 0.4 MG HCl 0.4 MG le} HCl 0.4 MG Escitalopra Escitalopra No 1{table QD Escitalopr m Oxalate m Oxalate t} am Oxalate 10 MG 10 MG 10 MG Benazepril Benazepril No 1{table QD Benazepril HCl 10 MG HCl 10 MG t} HCl 10 MG Multivitami Multivitami No Multivitam n n in Ciprofloxac Ciprofloxac No 1{table BID Ciprofloxa in HCl 500 in HCl 500 t} philomena HCl MG MG 500 MG Omeprazole Omeprazole No Omeprazole 40 MG 40 MG 40 MG ALPRAZolam ALPRAZolam No ALPRAZolam traZODone traZODone No traZODone HCl 50 MG HCl 50 MG HCl 50 MG buPROPion buPROPion No buPROPion HCl ER (XL) HCl ER (XL) HCl ER 300 MG 300 MG (XL) 300 MG Mirtazapine Mirtazapine No 1{table QD Mirtazapin 30 MG 30 MG t_at_be e 30 MG dtime} Metoprolol Metoprolol No Metoprolol Tartrate Tartrate Tartrate Atorvastati Atorvastati No Atorvastat n Calcium n Calcium in Calcium Pantoprazol Pantoprazol No 1{table QD Pantoprazo e Sodium 40 e Sodium 40 t} le Sodium MG MG 40 MG IBUPROFEN IBUPROFEN No IBUPROFEN Xanax 0.5 Xanax 0.5 No 1{table BID Xanax 0.5 MG MG t} MG Low-Dose Low-Dose No Low-Dose Aspirin Aspirin Aspirin Tamsulosin Tamsulosin No 1{capsu QD Tamsulosin HCl 0.4 MG HCl 0.4 MG le} HCl 0.4 MG Tamsulosin Tamsulosin No 1{capsu QD HCl 0.4 MG HCl 0.4 MG le} Multivitami Multivitami No n n Escitalopra Escitalopra No 1{table QD m Oxalate m Oxalate t} 10 MG 10 MG Ciprofloxac Ciprofloxac No 1{table BID in HCl 500 in HCl 500 t} MG MG Benazepril Benazepril No 1{table QD HCl 10 MG HCl 10 MG t} ALPRAZolam ALPRAZolam No traZODone traZODone No HCl 50 MG HCl 50 MG buPROPion buPROPion No HCl ER (XL) HCl ER (XL) 300 MG 300 MG Metoprolol Metoprolol No Tartrate Tartrate Ibuprofen Ibuprofen No 1{table 800 MG 800 MG t} Atorvastati Atorvastati No n Calcium n Calcium Xanax 0.5 Xanax 0.5 No 1{table BID MG MG t} IBUPROFEN IBUPROFEN No Mirtazapine Mirtazapine No 1{table QD 30 MG 30 MG t_at_be dtime} Omeprazole Omeprazole No 40 MG 40 MG Low-Dose Low-Dose No Aspirin Aspirin Pantoprazol Pantoprazol No 1{table QD e Sodium 40 e Sodium 40 t} MG MG Tamsulosin Tamsulosin No 1{capsu QD Tamsulosin HCl 0.4 MG HCl 0.4 MG le} HCl 0.4 MG Multivitami Multivitami No Multivitam n n in Escitalopra Escitalopra No 1{table QD Escitalopr m Oxalate m Oxalate t} am Oxalate 10 MG 10 MG 10 MG Ciprofloxac Ciprofloxac No 1{table BID Ciprofloxa in HCl 500 in HCl 500 t} philomena HCl MG MG 500 MG Benazepril Benazepril No 1{table QD Benazepril HCl 10 MG HCl 10 MG t} HCl 10 MG ALPRAZolam ALPRAZolam No ALPRAZolam traZODone traZODone No traZODone HCl 50 MG HCl 50 MG HCl 50 MG buPROPion buPROPion No buPROPion HCl ER (XL) HCl ER (XL) HCl ER 300 MG 300 MG (XL) 300 MG Metoprolol Metoprolol No Metoprolol Tartrate Tartrate Tartrate Ibuprofen Ibuprofen No 1{table Ibuprofen 800 MG 800 MG t} 800 MG Atorvastati Atorvastati No Atorvastat n Calcium n Calcium in Calcium Xanax 0.5 Xanax 0.5 No 1{table BID Xanax 0.5 MG MG t} MG IBUPROFEN IBUPROFEN No IBUPROFEN Mirtazapine Mirtazapine No 1{table QD Mirtazapin 30 MG 30 MG t_at_be e 30 MG dtime} Omeprazole Omeprazole No Omeprazole 40 MG 40 MG 40 MG Low-Dose Low-Dose No Low-Dose Aspirin Aspirin Aspirin Pantoprazol Pantoprazol No 1{table QD Pantoprazo e Sodium 40 e Sodium 40 t} le Sodium MG MG 40 MG IBUPROFEN IBUPROFEN No IBUPROFEN Benazepril Benazepril No 1{table QD Benazepril HCl 10 MG HCl 10 MG t} HCl 10 MG Pantoprazol Pantoprazol No 1{table QD Pantoprazo e Sodium 40 e Sodium 40 t} le Sodium MG MG 40 MG Atorvastati Atorvastati No Atorvastat n Calcium n Calcium in Calcium Multivitami Multivitami No Multivitam n n in Escitalopra Escitalopra No 1{table QD Escitalopr m Oxalate m Oxalate t} am Oxalate 10 MG 10 MG 10 MG buPROPion buPROPion No buPROPion HCl ER (XL) HCl ER (XL) HCl ER 300 MG 300 MG (XL) 300 MG Ciprofloxac Ciprofloxac No 1{table BID Ciprofloxa in HCl 500 in HCl 500 t} philomena HCl MG MG 500 MG ALPRAZolam ALPRAZolam No ALPRAZolam Metoprolol Metoprolol No Metoprolol Tartrate Tartrate Tartrate Omeprazole Omeprazole No Omeprazole 40 MG 40 MG 40 MG Xanax 0.5 Xanax 0.5 No 1{table BID Xanax 0.5 MG MG t} MG Low-Dose Low-Dose No Low-Dose Aspirin Aspirin Aspirin Mirtazapine Mirtazapine No 1{table QD Mirtazapin 30 MG 30 MG t_at_be e 30 MG dtime} traZODone traZODone No traZODone HCl 50 MG HCl 50 MG HCl 50 MG Ibuprofen Ibuprofen No 1{table Ibuprofen 800 MG 800 MG t} 800 MG Xanax 0.5 Xanax 0.5 No 1{table BID Xanax 0.5 MG MG t} MG Pantoprazol Pantoprazol No 1{table QD Pantoprazo e Sodium 40 e Sodium 40 t} le Sodium MG MG 40 MG buPROPion buPROPion No buPROPion HCl ER (XL) HCl ER (XL) HCl ER 300 MG 300 MG (XL) 300 MG Ciprofloxac Ciprofloxac No 1{table BID Ciprofloxa in HCl 500 in HCl 500 t} philomena HCl MG MG 500 MG Low-Dose Low-Dose No Low-Dose Aspirin Aspirin Aspirin Benazepril Benazepril No 1{table QD Benazepril HCl 10 MG HCl 10 MG t} HCl 10 MG Escitalopra Escitalopra No 1{table QD Escitalopr m Oxalate m Oxalate t} am Oxalate 10 MG 10 MG 10 MG Multivitami Multivitami No Multivitam n n in IBUPROFEN IBUPROFEN No IBUPROFEN traZODone traZODone No traZODone HCl 50 MG HCl 50 MG HCl 50 MG Mirtazapine Mirtazapine No 1{table QD Mirtazapin 30 MG 30 MG t_at_be e 30 MG dtime} Omeprazole Omeprazole No Omeprazole 40 MG 40 MG 40 MG Metoprolol Metoprolol No Metoprolol Tartrate Tartrate Tartrate Atorvastati Atorvastati No Atorvastat n Calcium n Calcium in Calcium ALPRAZolam ALPRAZolam No ALPRAZolam Ibuprofen Ibuprofen No 1{table Ibuprofen 800 MG 800 MG t} 800 MG Xanax 0.5 Xanax 0.5 No 1{table BID Xanax 0.5 MG MG t} MG Pantoprazol Pantoprazol No 1{table QD Pantoprazo e Sodium 40 e Sodium 40 t} le Sodium MG MG 40 MG buPROPion buPROPion No buPROPion HCl ER (XL) HCl ER (XL) HCl ER 300 MG 300 MG (XL) 300 MG Ciprofloxac Ciprofloxac No 1{table BID Ciprofloxa in HCl 500 in HCl 500 t} philomena HCl MG MG 500 MG Low-Dose Low-Dose No Low-Dose Aspirin Aspirin Aspirin Benazepril Benazepril No 1{table QD Benazepril HCl 10 MG HCl 10 MG t} HCl 10 MG Escitalopra Escitalopra No 1{table QD Escitalopr m Oxalate m Oxalate t} am Oxalate 10 MG 10 MG 10 MG Multivitami Multivitami No Multivitam n n in IBUPROFEN IBUPROFEN No IBUPROFEN traZODone traZODone No traZODone HCl 50 MG HCl 50 MG HCl 50 MG Mirtazapine Mirtazapine No 1{table QD Mirtazapin 30 MG 30 MG t_at_be e 30 MG dtime} Omeprazole Omeprazole No Omeprazole 40 MG 40 MG 40 MG Metoprolol Metoprolol No Metoprolol Tartrate Tartrate Tartrate Atorvastati Atorvastati No Atorvastat n Calcium n Calcium in Calcium ALPRAZolam ALPRAZolam No ALPRAZolam Ibuprofen Ibuprofen No 1{table Ibuprofen 800 MG 800 MG t} 800 MG Low-Dose Low-Dose No Low-Dose Aspirin Aspirin Aspirin Atorvastati Atorvastati No Atorvastat n Calcium n Calcium in Calcium Escitalopra Escitalopra No 1{table QD Escitalopr m Oxalate m Oxalate t} am Oxalate 10 MG 10 MG 10 MG buPROPion buPROPion No buPROPion HCl ER (XL) HCl ER (XL) HCl ER 300 MG 300 MG (XL) 300 MG Pantoprazol Pantoprazol No 1{table QD Pantoprazo e Sodium 40 e Sodium 40 t} le Sodium MG MG 40 MG Mirtazapine Mirtazapine No 1{table QD Mirtazapin 30 MG 30 MG t_at_be e 30 MG dtime} Tamsulosin Tamsulosin No 1{capsu QD Tamsulosin HCl 0.4 MG HCl 0.4 MG le} HCl 0.4 MG Ciprofloxac Ciprofloxac No 1{table BID Ciprofloxa in HCl 500 in HCl 500 t} philomena HCl MG MG 500 MG traZODone traZODone No traZODone HCl 50 MG HCl 50 MG HCl 50 MG Xanax 0.5 Xanax 0.5 No 1{table BID Xanax 0.5 MG MG t} MG Omeprazole Omeprazole No Omeprazole 40 MG 40 MG 40 MG ALPRAZolam ALPRAZolam No ALPRAZolam Benazepril Benazepril No 1{table QD Benazepril HCl 10 MG HCl 10 MG t} HCl 10 MG Multivitami Multivitami No Multivitam n n in Metoprolol Metoprolol No Metoprolol Tartrate Tartrate Tartrate Low-Dose Low-Dose No Low-Dose Aspirin Aspirin Aspirin Atorvastati Atorvastati No Atorvastat n Calcium n Calcium in Calcium Escitalopra Escitalopra No 1{table QD Escitalopr m Oxalate m Oxalate t} am Oxalate 10 MG 10 MG 10 MG buPROPion buPROPion No buPROPion HCl ER (XL) HCl ER (XL) HCl ER 300 MG 300 MG (XL) 300 MG Pantoprazol Pantoprazol No 1{table QD Pantoprazo e Sodium 40 e Sodium 40 t} le Sodium MG MG 40 MG Mirtazapine Mirtazapine No 1{table QD Mirtazapin 30 MG 30 MG t_at_be e 30 MG dtime} Tamsulosin Tamsulosin No 1{capsu QD Tamsulosin HCl 0.4 MG HCl 0.4 MG le} HCl 0.4 MG Ciprofloxac Ciprofloxac No 1{table BID Ciprofloxa in HCl 500 in HCl 500 t} philomena HCl MG MG 500 MG traZODone traZODone No traZODone HCl 50 MG HCl 50 MG HCl 50 MG Xanax 0.5 Xanax 0.5 No 1{table BID Xanax 0.5 MG MG t} MG Omeprazole Omeprazole No Omeprazole 40 MG 40 MG 40 MG ALPRAZolam ALPRAZolam No ALPRAZolam Benazepril Benazepril No 1{table QD Benazepril HCl 10 MG HCl 10 MG t} HCl 10 MG Multivitami Multivitami No Multivitam n n in Metoprolol Metoprolol No Metoprolol Tartrate Tartrate Tartrate Low-Dose Low-Dose No Low-Dose Aspirin Aspirin Aspirin Ciprofloxac Ciprofloxac No 1{table BID Ciprofloxa in HCl 500 in HCl 500 t} philomena HCl MG MG 500 MG ALPRAZolam ALPRAZolam No ALPRAZolam buPROPion buPROPion No buPROPion HCl ER (XL) HCl ER (XL) HCl ER 300 MG 300 MG (XL) 300 MG Tamsulosin Tamsulosin 2022- No 2{capsu QD Tamsulosin HCl 0.4 MG HCl 0.4 MG 11-06 les} HCl 0.4 MG 00:00 :00 Tamsulosin Tamsulosin 2022- No 2{capsu QD Tamsulosin HCl 0.4 MG HCl 0.4 MG 28 les} HCl 0.4 MG 00:00 :00 Tamsulosin Tamsulosin 2021- No 1{capsu QD Tamsulosin HCl 0.4 MG HCl 0.4 MG 04-30 le} HCl 0.4 MG 00:00 :00 Immunizations Ordered Filled Immunization Date Status Comments Sourc e Immunization Name Name Bupivicaine Rhodes Bupivicaine Rhodes 2020-08-20 Completed [facility] - 15:03:00 [facility] Bupivicaine Rhodes Bupivicaine Rhodes 2020-08-20 Completed [facility] - 15:03:00 [facility] Bupivicaine Rhodes Bupivicaine Rhodes 2020-08-20 Completed [facility] - 15:03:00 [facility] Bupivicaine Rhodes Bupivicaine Rhodes 2020-08-20 Completed [facility] - 15:03:00 [facility] Bupivicaine Rhodes Bupivicaine Rhodes 2020-08-20 Completed [facility] - 15:03:00 [facility] Bupivicaine Rhodes Bupivicaine Rhodes 2020-08-20 Completed [facility] - 15:03:00 [facility] Bupivicaine Rhodes Bupivicaine Rhodes 2020-08-20 Completed [facility] - 15:03:00 [facility] Bupivicaine Rhodes Bupivicaine Rhodes 2020-08-20 Completed [facility] - 15:03:00 [facility] Bupivicaine Rhodes Bupivicaine Rhodes 2020-08-20 Completed [facility] - 15:03:00 [facility] Bupivicaine Rhodes Bupivicaine Rhodes 2020-08-20 Completed [facility] - 15:03:00 [facility] Bupivicaine Rhodes Bupivicaine Rhodes 2020-08-20 Completed [facility] - 15:03:00 [facility] Kenalog Kenalog 2020-08-20 Completed [facility] - (Triamcinolone) (Triamcinolone) 15:02:00 [facility] Kenalog Kenalog 2020-08-20 Completed [facility] - (Triamcinolone) (Triamcinolone) 15:02:00 [facility] Kenalog Kenalog 2020-08-20 Completed [facility] - (Triamcinolone) (Triamcinolone) 15:02:00 [facility] Kenalog Kenalog 2020-08-20 Completed [facility] - (Triamcinolone) (Triamcinolone) 15:02:00 [facility] Kenalog Kenalog 2020-08-20 Completed [facility] - (Triamcinolone) (Triamcinolone) 15:02:00 [facility] Kenalog Kenalog 2020-08-20 Completed [facility] - (Triamcinolone) (Triamcinolone) 15:02:00 [facility] Kenalog Kenalog 2020-08-20 Completed [facility] - (Triamcinolone) (Triamcinolone) 15:02:00 [facility] Kenalog Kenalog 2020-08-20 Completed [facility] - (Triamcinolone) (Triamcinolone) 15:02:00 [facility] Kenalog Kenalog 2020-08-20 Completed [facility] - (Triamcinolone) (Triamcinolone) 15:02:00 [facility] Kenalog Kenalog 2020-08-20 Completed [facility] - (Triamcinolone) (Triamcinolone) 15:02:00 [facility] Kenalog Kenalog 2020-08-20 Completed [facility] - (Triamcinolone) (Triamcinolone) 15:02:00 [facility] TDAP 2018-03-30 Completed [facility]00 [facility] Zoster Vaccine 2018-03-30 Completed [facility] Recombinant 00:00:00 [facility] TDAP 2018-03-30 Completed [facility] 00:00:00 [facility] Zoster Vaccine 2018-03-30 Completed [facility] Recombinant 00:00:00 [facility] TDAP 2018-03-30 Completed [facility] 00:00:00 [facility] Zoster Vaccine 2018-03-30 Completed [facility] Recombinant 00:00:00 [facility] TDAP 2018-03-30 Completed [facility] 00:00:00 [facility] Zoster Vaccine 2018-03-30 Completed [facility] Recombinant 00:00:00 [facility] TDAP 2018-03-30 Completed [facility] 00:00:00 [facility] Zoster Vaccine 2018-03-30 Completed [facility] Recombinant 00:00:00 [facility] TDAP 2018-03-30 Completed [facility] 00:00:00 [facility] Zoster Vaccine 2018-03-30 Completed [facility] Recombinant 00:00:00 [facility] TDAP 2018-03-30 Completed [facility] 00:00:00 [facility] Zoster Vaccine 2018-03-30 Completed [facility] Recombinant 00:00:00 [facility] TDAP 2018-03-30 Completed [facility] 00:00:00 [facility] Zoster Vaccine 2018-03-30 Completed [facility] Recombinant 00:00:00 [facility] TDAP 2018-03-30 Completed [facility] 00:00:00 [facility] Zoster Vaccine 2018-03-30 Completed [facility] Recombinant 00:00:00 [facility] TDAP 2018-03-30 Completed [facility] 00:00:00 [facility] Zoster Vaccine 2018-03-30 Completed [facility] Recombinant 00:00:00 [facility] TDAP 2018-03-30 Completed [facility] 00:00:00 [facility] Zoster Vaccine 2018-03-30 Completed [facility] Recombinant 00:00:00 [facility] TDAP 2018-03-30 Completed [facility] 00:00:00 [facility] Zoster Vaccine 2018-03-30 Completed [facility] Recombinant 00:00:00 [facility] TDAP 2018-03-30 Completed [facility] 00:00:00 [facility] Zoster Vaccine 2018-03-30 Completed [facility] Recombinant 00:00:00 [facility] TDAP 2018-03-30 Completed [facility] 00:00:00 [facility] Zoster Vaccine 2018-03-30 Completed [facility] Recombinant 00:00:00 [facility] TDAP 2018-03-30 Completed [facility] 00:00:00 [facility] Zoster Vaccine 2018-03-30 Completed [facility] Recombinant 00:00:00 [facility] TDAP 2018-03-30 Completed [facility] 00:00:00 [facility] Zoster Vaccine 2018-03-30 Completed [facility] Recombinant 00:00:00 [facility] TDAP 2018-03-30 Completed [facility] 00:00:00 [facility] Zoster Vaccine 2018-03-30 Completed [facility] Recombinant 00:00:00 [facility] TDAP 2018-03-30 Completed [facility] 00:00:00 [facility] Zoster Vaccine 2018-03-30 Completed [facility] Recombinant 00:00:00 [facility] TDAP 2018-03-30 Completed [facility] 00:00:00 [facility] Zoster Vaccine 2018-03-30 Completed [facility] Recombinant 00:00:00 [facility] TDAP 2018-03-30 Completed [facility] 00:00:00 [facility] Zoster Vaccine 2018-03-30 Completed [facility] Recombinant 00:00:00 [facility] TDAP 2018-03-30 Completed [facility] 00:00:00 [facility] Zoster Vaccine 2018-03-30 Completed [facility] Recombinant 00:00:00 [facility] TDAP 2018-03-30 Completed [facility] 00:00:00 [facility] Zoster Vaccine 2018-03-30 Completed [facility] Recombinant 00:00:00 [facility] TDAP 2018-03-30 Completed [facility] 00:00:00 [facility] Zoster Vaccine 2018-03-30 Completed [facility] Recombinant 00:00:00 [facility] TDAP 2018-03-30 Completed [facility] 00:00:00 [facility] Zoster Vaccine 2018-03-30 Completed [facility] Recombinant 00:00:00 [facility] TDAP 2018-03-30 Completed [facility] 00:00:00 [facility] Zoster Vaccine 2018-03-30 Completed [facility] Recombinant 00:00:00 [facility] TDAP 2018-03-30 Completed [facility] 00:00:00 [facility] Zoster Vaccine 2018-03-30 Completed [facility] Recombinant 00:00:00 [facility] TDAP 2018-03-30 Completed [facility] 00:00:00 [facility] Zoster Vaccine 2018-03-30 Completed [facility] Recombinant 00:00:00 [facility] TDAP 2018-03-30 Completed [facility] 00:00:00 [facility] Zoster Vaccine 2018-03-30 Completed [facility] Recombinant 00:00:00 [facility] TDAP 2018-03-30 Completed [facility] 00:00:00 [facility] Zoster Vaccine 2018-03-30 Completed [facility] Recombinant 00:00:00 [facility] TDAP 2018-03-30 Completed [facility] 00:00:00 [facility] Zoster Vaccine 2018-03-30 Completed [facility] Recombinant 00:00:00 [facility] Zoster Vaccine 2017-11-24 Completed [facility] Recombinant 00:00:00 [facility] Zoster Vaccine 2017-11-24 Completed [facility] Recombinant 00:00:00 [facility] Zoster Vaccine 2017-11-24 Completed [facility] Recombinant 00:00:00 [facility] Zoster Vaccine 2017-11-24 Completed [facility] Recombinant 00:00:00 [facility] Zoster Vaccine 2017-11-24 Completed [facility] Recombinant 00:00:00 [facility] Zoster Vaccine 2017-11-24 Completed [facility] Recombinant 00:00:00 [facility] Zoster Vaccine 2017-11-24 Completed [facility] Recombinant 00:00:00 [facility] Zoster Vaccine 2017-11-24 Completed [facility] of Recombinant 00:00:00 [facility] Zoster Vaccine 2017-11-24 Completed [facility] of Recombinant 00:00:00 [facility] Zoster Vaccine 2017-11-24 Completed [facility] Recombinant 00:00:00 [facility] Zoster Vaccine 2017-11-24 Completed [facility] Recombinant 00:00:00 [facility] Zoster Vaccine 2017-11-24 Completed [facility] Recombinant 00:00:00 [facility] Zoster Vaccine 2017-11-24 Completed [facility] Recombinant 00:00:00 [facility] Zoster Vaccine 2017-11-24 Completed [facility] Recombinant 00:00:00 [facility] Zoster Vaccine 2017-11-24 Completed [facility] Recombinant 00:00:00 [facility] Zoster Vaccine 2017-11-24 Completed [facility] Recombinant 00:00:00 [facility] Zoster Vaccine 2017-11-24 Completed [facility] Recombinant 00:00:00 [facility] Zoster Vaccine 2017-11-24 Completed [facility] Recombinant 00:00:00 [facility] Zoster Vaccine 2017-11-24 Completed [facility] Recombinant 00:00:00 [facility] Zoster Vaccine 2017-11-24 Completed [facility] Recombinant 00:00:00 [facility] Zoster Vaccine 2017-11-24 Completed [facility] Recombinant 00:00:00 [facility] Zoster Vaccine 2017-11-24 Completed [facility] Recombinant 00:00:00 [facility] Zoster Vaccine 2017-11-24 Completed [facility] Recombinant 00:00:00 [facility] Zoster Vaccine 2017-11-24 Completed [facility] Recombinant 00:00:00 [facility] Zoster Vaccine 2017-11-24 Completed [facility] Recombinant 00:00:00 [facility] Zoster Vaccine 2017-11-24 Completed [facility] Recombinant 00:00:00 [facility] Zoster Vaccine 2017-11-24 Completed [facility] Recombinant 00:00:00 [facility] Zoster Vaccine 2017-11-24 Completed [facility] Recombinant 00:00:00 [facility] Zoster Vaccine 2017-11-24 Completed [facility] Recombinant 00:00:00 [facility] Zoster Vaccine 2017-11-24 Completed [facility] Recombinant 00:00:00 [facility] Vital Signs Vital Name Observation Time Observation Value Comments Source HEIGHT 2021-05-12 11:45:00 172.7 cm WEIGHT 2021-05-12 11:45:00 92.534 kg Systolic blood 2022-09-21 21:07:00 114 mm[Hg] Univer sity of pressure [facility] Diastolic blood 2022-09-21 21:07:00 75 mm[Hg] Unive rsity of pressure [facility] Heart rate 2022-09-21 21:07:00 98 /min Universi ty [facility] Body height 2022-09-21 21:07:00 172.7 cm Universi ty of [facility] Body weight 2022-09-21 21:07:00 94.031 kg Universi ty [facility] BMI 2022-09-21 21:07:00 31.52 kg/m2 Universi ty [facility] Body height 2022-07-26 19:41:00 172.7 cm Universi ty of [facility] Body weight 2022-07-26 19:41:00 95.709 kg Universi ty of [facility] BMI 2022-07-26 19:41:00 32.08 kg/m2 Universi ty of [facility] Body height 2022-06-15 20:51:00 172.7 cm Universi ty [facility] Body weight 2022-06-15 20:51:00 95.981 kg Universi ty [facility] BMI 2022-06-15 20:51:00 32.17 kg/m2 Universi ty [facility] Systolic blood 2022-02-16 18:09:00 120 mm[Hg] Univer sity of pressure [facility] Diastolic blood 2022-02-16 18:09:00 79 mm[Hg] Unive rsity of [facility] Heart rate 2022-02-16 18:09:00 75 /min Universi ty [facility] Body height 2022-02-16 18:09:00 172.7 cm Universi ty [facility] Body weight 2022-02-16 18:09:[address] [facility] BMI 2022-02-16 18:09:00 31.63 kg/m2 [facility] Oxygen saturation in 2022-02-16 18:09:00 97 /min [facility] Arterial blood by [facility] Pulse oximetry Branch height 2021-11-11 09:45:00 68.0 [in_i] [facility] weight 2021-11-11 09:45:00 201.4 [lb_av] Common [facility] temperature 2021-11-11 09:45:00 98.2 [degF] Common [facility] bmi 2021-11-11 09:45:00 30.62 kg/m2 [facility] oximetry 2021-11-11 09:45:00 98 % [facility] respiratory rate 2021-11-11 09:45:00 16 /min Comm on [facility] blood pressure 2021-11-11 09:45:00 110 mm[Hg] Common [facility] - systolic [facility] blood pressure 2021-11-11 09:45:00 79 mm[Hg] Common [facility] - diastolic [facility] height 2021-05-05 11:15:00 68.0 [in_i] Common [facility] - [facility] weight 2021-05-05 11:15:00 203.2 [lb_av] Common [facility] temperature 2021-05-05 11:15:00 97.6 [degF] Common S pirit - [facility] bmi 2021-05-05 11:15:00 30.89 kg/m2 Common S [facility] - [facility] oximetry 2021-05-05 11:15:00 98 % Common S [facility] - [facility] blood pressure 2021-05-05 11:15:00 111 mm[Hg] Common [facility] - systolic [facility] blood pressure 2021-05-05 11:15:00 72 mm[Hg] [facility] - diastolic [facility] height 2021-04-06 10:30:00 68.0 [in_i] Common S pirit [facility] weight 2021-04-06 10:30:00 194 [lb_av] Common S pirit - [facility] temperature 2021-04-06 10:30:00 97.3 [degF] Common S pirit [facility] bmi 2021-04-06 10:30:00 29.49 kg/m2 Common S pirit [facility] blood pressure 2021-04-06 10:30:00 120 mm[Hg] Common [facility] - systolic [facility] blood pressure 2021-04-06 10:30:00 86 mm[Hg] [facility] - diastolic [facility] height 2021-03-09 13:00:00 68.0 [in_i] Common S pirit - [facility] weight 2021-03-09 13:00:00 199.4 [lb_av] [facility] bmi 2021-03-09 13:00:00 30.32 kg/m2 Common S pirit [facility] blood pressure 2021-03-09 13:00:00 130 mm[Hg] [facility] - systolic [facility] blood pressure 2021-03-09 13:00:00 84 mm[Hg] [facility] - diastolic [facility] height 2021-01-21 13:00:00 68.0 [in_i] [facility] weight 2021-01-21 13:00:00 194 [lb_av] [facility] temperature 2021-01-21 13:00:00 97.3 [degF] [facility] bmi 2021-01-21 13:00:00 29.49 kg/m2 [facility] blood pressure 2021-01-21 13:00:00 132 mm[Hg] [facility] Spirit - systolic [facility] blood pressure 2021-01-21 13:00:00 84 mm[Hg] [facility] - diastolic [facility] Procedures Procedure Date / Time Performing Clinician Source Performed DSU PRE-OP 2022-09-21 05:01:00 Doctor Unassigned, No [facility] PATIENT QUESTIONNAIRE 2022-09-12 05:01:00 Doctor Unassigned, No [facility] REFERRAL- 2022-06-21 06:01:00 Doctor Unassigned, No Univer sity [facility] [place] [place] REQUEST/RESPONSE [facility] REFERRAL- 2022-06-15 06:01:00 Doctor Unassigned, No Univer sity [facility] [place] REQUEST/RESPONSE [facility] MEDICAL 2022-04-11 05:01:00 Doctor Unassigned, No [facility] sity [facility] [place] RELEASE/CLEARANCE FORMS [facility] Plan of Care Planned Activity Planned Date Details Comments Source Future Scheduled 2028-03-30 DTAP/TDAP/TD VACCINES CH I [facility] Test 00:00:00 (2 - Td or Tdap) [code Medic sc Center = DTAP/TDAP/TD VACCINES (2 - Td or Tdap)] Future Scheduled 2023-02-10 INFLUENZA VACCINE [facility] Test 00:00:00 (Season Ended) [code = Medic al [place] INFLUENZA VACCINE (Season Ended)] Future Scheduled 2022-09-21 Hepatitis C screening [facility] Test 16:02:03 (procedure) [code = 845361290] Future Scheduled 2022-09-21 COLONOSCOPY SCREENING [facility] Test 16:02:03 [code = COLONOSCOPY SCREENING] Future Scheduled 2022-09-21 SHINGLES VACCINES (1 Met [facility] Test 16:02:03 of 2) [code = SHINGLES VACCINES (1 of 2)] Future Scheduled 2022-09-21 COVID-19 VACCINE (3 - [facility] Test 16:02:03 Booster for Moderna series) [code = COVID-19 VACCINE (3 - Booster for Moderna series)] Future Scheduled 2022-09-21 65[facility] Test 16:02:03 VACCINE (2 - PPSV23 if available, else PCV20) [code = 65+ PNEUMOCOCCAL VACCINE (2 - PPSV23 if available, else PCV20)] Future Scheduled 2022-09-21 [facility]ENZA [facility]ACCINE [facility] Test 16:02:03 [code = INFLUENZA VACCINE] Future Scheduled 2022-06-[address] [facility] Test 00:00:00 (12+) [code = Medical Center DEPRESSION SCREENING (12+)] Future Scheduled 2022-06-12 FALLS RISK SCREENING [facility] Test 00:00:00 [code = FALLS RISK Medical C enter SCREENING] Future Scheduled 2022-05-[address] [facility] Test 00:00:00 Counseling and Medical Cente r Screening (12+) [code = Tobacco Cessation Counseling and Screening (12+)] Future Scheduled 2020 PNEUMOCOCCAL 65+ YRS [facility] Test 00:00:00 (1 - PCV) [code = Medical Ce nter PNEUMOCOCCAL 65+ YRS (1 - PCV)] Future Scheduled 2005 SHINGLES VACCINES ([address] [facility] Test 00:00:00 of 2) [code = SHINGLES Medic al Center VACCINES (1 of 2)] Future Scheduled 1973 HEPATITIS C SCREENING [facility] Test 00:00:00 [code = HEPATITIS C Medical Center SCREENING] Future Scheduled 1955 COVID-19 VACCINE (#1) [facility] Test 00:00:00 [code = COVID-[address] VACCINE (#1)] Future Scheduled [address] Test 00:00:00 (combo) [code = CT Medical C enter Colonography (combo)] Future Scheduled [address] [facility] Test 00[facility]00 malignant neoplasm of Medica l Center colon (procedure) [code = 348243084] Future Scheduled [address] [facility] [facility] Test 00:00:00 malignant neoplasm of Medica l Center colon (procedure) [code = 338092793] Future Scheduled [address] [facility] [facility] Test 00:00:00 malignant neoplasm of Medica l Center colon (procedure) [code = 545610706] Future Scheduled [address] [facility] Test 00:00:00 malignant neoplasm of Medica l Center colon (procedure) [code = 718956645] Future Scheduled 1955 Sigmoidoscopy [code [facility] Test 00:00[facility]oscopy] [facility] Start End Encounter Admission Attending Care Care Encounter Source Date/Time Date/Time Type Type Clinicians Facility Department ID 2022-09-22 Outpatient JOSÉ MIGUEL JACKSON SOR [id number] Univers 08:57:16 [facility] 2022-06-23 Outpatient JOSÉ MIGUEL JACKSON SOR [id number] Univers 08:08:58 [facility] 2022-02-03 Outpatient [facility] [id number] [place] 14:40:28 [id number] [facility] 2022-01-19 Outpatient [facility] [id number] [place] 14:10:01 [id number] [facility] 2022-01-18 Outpatient [facility] [id number] [place] 08:54:35 [id number] [facility] 2022-01-17 Outpatient [facility] [id number] [place] 15:45:55 [id number] [facility] 2021-12-14 Outpatient [facility] [id number] [place] 09:37:47 [id number] [facility] 2021-11-09 Outpatient [facility] [id number] [place] 13:05:57 [id number] [facility] 2021-11-01 Outpatient [facility] [id number] [place] 09:58:28 [id number] [facility] 2021-10-15 Outpatient [facility] [id number] [place] 16:27:49 [id number] [facility] 2021-09-27 Outpatient [facility] [id number] [place] 09:57:26 [id number] [facility] 2021-07-[address], [facility]ML[facility] Common 13:39:02 Shaun [id number] [facility] 2021-07-[address], STLMLC [facility] Common 13:13:51 Shaun [id number] [facility] 2021-04-10 Emergency [facility] [id number] Univers 10:37:17 [facility] 2021-04-09 Outpatient ROSMERY MURPHY [facility] Surgery [id number] [facility] 08:07:25 MOHAMED 2022-10-11 2022-10-11 [facility] [id number] Univers 14:15:00 14:15:00 [facility] 2022-10-10 2022-10-10 Outpatient Nadir PALENCIA [facility] [id number] Univers 15:30:00 15:30:00 [facility] 2022-09-29 2022-09-29 Outpatient Nadir PALNECIA [facility] [id number] Univers 14:15:00 14:15:00 [facility] 2022-09-26 2022-09-26 [facility] 1.2.840.114 [id number] Univers 00:00:00 00:00:00 [facility] First Class EV Conversions 350.1.13.10 it y of [place] 4.2.7.2.686 Clarence as RAINA?BLEA [id number] [place] amish NUÑEZ [address] [place] [address] MEDICAL OFFICE [facility] 2022-09-23 2022-09-23 [facility]patient [facility] [id number] Univers 08:00:00 08:00:00 [facility] 2022-09-22 2022-09-22 Prep For [facility] .2.840.114 [id number] Univers 00:00:00 00:00:00 Surgery [facility] First Class EV Conversions 350.1.13.10 it y of [place] 4.2.7.2.686 Clarence as RAINA?BLEA [id number] [place] amish NUÑEZ [address] [place] [address] MEDICAL OFFICE BUILDING 2022-09-22 2022-09-22 Telephone Kezia COISAEL 1.2.840.114 [id number] Univers 00:00:00 00:00:00 Sebastián Denny HEALTH 350.1.13.10 it y of [place] 4.2.7.2.686 Clarence as RAINA?BLEA [id number] [place] amish NUÑEZ [address] [facility] OFFICE [facility] 2022-09-21 2022-09-21 Office [facility] 1.2.840.114 [id number] Univers 16:15:00 16:30:00 Visit Benny Patel HEALTH 350.1.13.10 it y [facility] 4.2.7.2.686 Clarence as RAINA?BLEA [id number] [place] amish [address] 2022-09-21 2022-09-21 Outpatient [facility] [id number] Univers 16:15:00 16:15:00 [facility] 2022-09-21 2022-09-21 Orders Doctor CHYNA 1.2.840.114 [id number] Univers 00:00:00 00:00:00 Only Unassigned, JANNET 350.1.13.10 ity of [facility] 4.2.7.2.686 Clarence as [id number] [address] 2022-09-12 2022-09-12 [facility] [id number] Univers 14:45:00 14:45:00 [facility] 2022-09-12 2022-09-12 Orders Doctor CLEMENTE 1.2.840.114 [id number] Univers 00:00:00 00:00:00 Only Unassigned, JANNET 350.1.13.10 ity of [facility] 4.2.7.2.686 Clarence as [id number] [address] 2022-09-07 2022-09-07 [facility] [id number] Univers 13:15:00 13:15:00 [facility] 2022-08-22 2022-08-22 Telephone [facility] [id number] [id number] Univers 00:00:00 00:00:00 Benny S HEALTH 350.1.13.10 it y [facility] 4.2.7.2.686 Clarence as RAINA?BLEA [id number] Me amish KNEY [address] [facility] 2022-08-18 2022-08-18 Ancillary Wellington Mcrae [facility] 1.2.840. 114 [id number] Univers 15:15:00 16:00:00 Visit Sebastián Mast 350.1.13.10 ity of [facility] 4.[place] [id number] Mn dical NAL [address] [facility] 2022-08-18 2022-08-18 Outpatient R KEZIA [facility] [id number] Univers 15:15:00 15:15:00 SEBASTIÁN itrober of [facility] 2022-08-16 2022-08-16 Ancillary Wellington Mcrae [facility] 1.2.840. 114 [id number] Univers 15:15:00 16:00:00 Visit Sebastián Mast 350.1.13.10 ity of [facility] 4.2.[place]2.[place] [id number] Mn dical NAL 179 [facility] 2022-08-01 2022-08-01 Ancillary Wellington Mcrae [facility] 1.2.840. 114 [id number] Univers 15:15:00 15:48:31 Visit Sebastián Mast 350.1.13.10 ity of [facility] 4.2.[place] [id number] Mn dical NAL 179 [facility] 2022-07-27 2022-07-27 Ancillary Wellington Mcrae [facility] 1.2.840. 114 [id number] Univers 15:15:00 15:52:19 Visit Sebastián Mast 350.1.13.10 ity of [facility] 4.2.[place].2.[place] [id number] Mn dical NAL 179 [facility] 2022-07-26 2022-07-26 Office Slime [facility] 1.2.840.114 [id number] Univers 13:45:00 14:00:00 Visit Benny S HEALTH 350.1.13.10 it y of [place] 4.2.7.2.686 Clarence as RAINA?BLEA [id number] Mn dictheresa NUÑEZ 198 [facility] 2022-07-26 2022-07-26 Outpatient R SLIME [facility] [id number] Univers 13:45:00 13:45:00 BENNY ity [facility] 2022-07-25 2022-07-25 Ancillary Wellington Mcrae [facility] 1.2.840. 114 [id number] Univers 15:15:00 15:41:51 Visit Sebastián Mast 350.1.13.10 ity of [facility] 4.2.[place] [id number] Mn dical NAL 179 [facility] 2022-07-25 2022-07-25 Outpatient R SLIME [facility] [id number] Univers 13:30:00 13:30:00 [facility] 2022-07-19 2022-07-19 [facility] [id number] Univers 13:45:00 14:47:54 [facility] 2022-07-19 2022-07-19 Ancillary Ivett eKnt [facility] 1 .2.840.114 [id number] Univers 13:45:00 14:47:54 Visit Fernando Desai 350.1.13.10 ity of Sebastián Mast 4.2.7.2.686 [place] PROFESSIO [id number] Mn dical NAL 179 [facility] 2022-07-08 2022-07-08 Outpatient [facility] [id number] Univers 08:15:00 08:15:00 SEBASTIÁN [facility] 2022-07-07 2022-07-07 Telephone [facility] 1.2.840.114 [id number] Univers 00:00:00 00:00:00 Sebastián Denny First Class EV Conversions 350.1.13.10 it y of [place] 4.2.7.2.686 Clarence as RAINA?BLEA [id number] Mn dictheresa NUÑEZ 198 [facility] 2022-07-01 2022-07-01 Telephone JOSÉ MIGUEL Mast 1.2.840.114 [id number] Univers 00:00:00 00:00:00 Sebastián L HEALTH 350.1.13.10 it y of [place] 4.2.7.2.686 Clarence as RAINA?BLEA [id number] Mn amish NUÑEZ [address] [place] MEDICAL OFFICE [facility] 2022-06-30 2022-06-30 Telephone JOSÉ MIGUEL Mast 1.2.840.114 [id number] Univers 00:00:00 00:00:00 Sebastián L HEALTH 350.1.13.10 it y of [place] 4.2.7.2.686 Clarence as RAINA?BLEA [id number] Mn amish NUÑEZ 198 [facility] OFFICE [facility] 2022-06-23 2022-06-23 Telephone JOSÉ MIGUEL Mast 1.2.840.114 [id number] Univers 00:00:00 00:00:00 Sebastián Denny HEALTH 350.1.13.10 it y of [place] 4.2.7.2.686 Clarence as RAINA?BLEA [id number] Mn amish NUÑEZ [address] [facility] OFFICE [facility] 2022-06-21 2022-06-21 Telephone Slime COISAEL [id number] [id number] Univers 00:00:00 00:00:00 Benny S HEALTH 350.1.13.10 it y of [place] 4.2.7.2.686 Clarence as RAINA?BLEA [id number] Mn amish NUÑEZ 198 [facility] OFFICE [facility] 2022-06-21 2022-06-21 Prep For Kezia COISAEL 1.2.840.114 [id number] Univers 00:00:00 00:00:00 Surgery Sebastián L HEALTH 350.1.13.10 it y of [place] 4.2.7.2.686 Clarence as RAINA?BLEA [id number] Mn amish NUÑEZ [address] [facility] OFFICE [facility] 2022-06-21 2022-06-21 Orders Doctor CHYNA 1.2.840.114 [id number] Univers 00:00:00 00:00:00 Only Unassigned, JANNET 350.1.13.10 ity of [place] [facility] 4.2.7.2.686 Clarence as [id number] [address] 2022-06-15 2022-06-15 Outpatient R KEZIA [facility] [id number] Univers 15:00:00 15:24:50 SEBASTIÁN ovalle [facility] 2022-06-15 2022-06-15 Office Benny Palencia [facility] 1.2.840.114 [id number] Univers 15:00:00 15:15:00 Visit Sebastián Mast HEALTH 350.1.13.10 ity of [place] 4.2.7.2.686 Clarenec as RAINA?BLEA [id number] Mn amish [address] OFFICE [facility] 2022-06-15 2022-06-15 Orders Doctor CHYNA 1.2.840.114 [id number] Univers 00:00:00 00:00:00 Only Unassigned, JANNET 350.1.13.10 ity of [place] [facility] 4.2.7.2.686 Clarence as [id number] [address] 2022-06-02 2022-06-02 [facility] [id number] Univers 10:00:00 10:00:00 SEBASTIÁN ovalle [facility] 2022-04-26 2022-04-26 Telephone [facility] 1.2.840.114 [id number] Univers 00:00:00 00:00:00 Sebastián Denny HEALTH 350.1.13.10 it y of [place] 4.2.7.2.686 Clarence as RAINA?BLEA [id number] Mn kristintheresa [address] OFFICE [facility] 2022-04-11 2022-04-11 Orders Doctor CHYNA 1.2.840.114 [id number] Univers 00:00:00 00:00:00 Only Unassigned, JANNET 350.1.13.10 ity of [facility] [facility] 4.2.7.2.686 Clarence as [id number] [address] 2022-02-16 2022-02-16 Office [facility] 1.2.199.586 [id number] Univers 13:15:00 13:30:00 Visit Sebastián Denny HEALTH 350.1.13.10 it y of [place] 4.2.7.2.686 Clarence as RAINA?BLEA [id number] [place] amish LORIE [address] [place] [address] MEDICAL OFFICE BUILDING 2022-02-16 2022-02-16 [facility] [id number] Univers 13:15:00 13:15:00 SEBASTIÁN ovalle [facility] 2022-01-31 2022-01-31 [facility] [id number] Univers 11:13:58 23:59:00 SEBASTIÁNZAIDA ovalle [facility] 2022-01-31 2022-01-31 Hospital [facility] 1.2.840.114 [id number] Univers 10:50:00 23:59:00 En[facility] 350.1.13.10 ity of [place] 4.2.7.2.686 [place] [facility] [id number] [address] 2022-01-31 2022-01-31 [facility] [id number] Univers 13:45:00 13:45:00 SEBASTIÁN ovalle [facility] 2022-01-27 2022-01-27 [facility] [id number] Univers 10:06:26 23:59:00 SEBASTIÁN ovalle [facility] 2022-01-27 2022-01-27 Office [facility] [id number] [id number] Univers 10:00:00 10:33:21 Visit Sebastián Denny [facility] 350.1.13.10 it y of [place] 4.2.7.2.686 Clarence as RAINA?BLEA [id number] [place] amish LORIE [address] [place] [address] MEDICAL OFFICE [facility] 2022-01-27 2022-01-27 Outpatient [facility] [id number] Univers 10:06:26 10:06:26 SEBASTIÁN rober [facility] 2022-01-27 2022-01-27 Orders Doctor CLEMENTE [id number] Univers 00:00:00 00:00:00 Only Unassigned, JANNET [id number] ity of [place] [facility] [id number] Clarence as [id number] [address] 2021-12-31 2021-12-31 Orders Conn-Mar 1.2.840.1 [id number] Methodi 00:00:00 00:00:00 Only Jamia gabriel 31411.1.1 769 s t D 3.430.2.7 Hospit a .[id number] l .8 2021-12-07 2021-12-07 Orders [facility] 1.2.840.1 [id number] Methodi 00:00:00 00:00:00 Only Jamia gabriel 20450.1.1 466 s t D 3.430.2.7 Hospit a .[id number] l .8 2021-11-24 2021-11-24 (TEL) STLMLC STLMLC [id number] Co mmon 00:00:00 00:00:00 Spirit - [facility]I [facility] 2021-11-11 2021-11-11 OFFICE STLMLC STLMLC [id number] Co mmon 00:00:00 00:00:00 VISIT Spirit ESTAB PT - CHI LEVEL 2 [facility] 2021-09-09 2021-09-09 Outpatient GALATI, [facility] [id number] [address] [place] 00:00:00 00:00:00 BRAULIO 350 [facility] 2021-09-09 2021-09-09 Outpatient GALATI, [facility] [id number] [address] [place] 00:00:00 00:00:00 BRAULIO 482 Method i 2021-09-09 2021-09-09 Outpatient GALATI, [facility] [id number] [address] [place] 00:00:00 00:00:00 BRAULIO 654 Method i 2021-09-09 2021-09-09 Outpatient GALATI, [facility] [id number] [address] [place] 00:00:00 00:00:00 BRAULIO 853 Method i 2021-09-09 2021-09-09 Outpatient GALATI, [facility] [id number] [address] [place] 00:00:00 00:00:00 BRAULIO 983 Method i 2021-07-21 2021-07-31 Inpatient Caroline TAN, [facility] MED 9367 [facility] 07:58:00 12:37:00 BRINDA 2021-05-12 2021-05-12 Outpatient EL SLE [facility] [id number] [facility] 12:05:02 23:59:00 2021-05-05 2021-05-05 OFFICE STLMLC STLMLC [id number] Co mmon 00:00:00 00:00:00 VISIT [facility] PT - CHI LEVEL 2 [facility] 2021-05-04 2021-05-04 (TEL) STLMLC STLMLC [id number] Co mmon 00:00:00 00:00:00 [facility] 2021-04-13 2021-04-13 Outpatient ROSMERY DELGADO, SLE SLE [id number] [facility] 00:00:00 00:00:00 LENCHO 2021-04-06 2021-04-06 (TEL) STLMLC STLMLC [id number] Co mmon 00:00:00 00:00:00 [facility] 2021-04-06 2021-04-06 OFFICE STLMLC STLMLC [id number] Co mmon 00:00:00 00:00:00 VISIT [facility] PT - CHI LEVEL 4 [facility] 2021-03-16 2021-03-16 (TEL) STLMLC STLMLC [id number] Co mmon 00:00:00 00:00:00 [facility] 2021-03-16 2021-03-16 (TEL) STLMLC STLMLC [id number] Co mmon 00:00:00 00:00:00 [facility] 2021-03-10 2021-03-10 (TEL) STLMLC STLMLC [id number] Co mmon 00:00:00 00:00:00 [facility] 2021-03-09 2021-03-09 OFFICE STLMLC STLMLC [id number] Co mmon 00:00:00 00:00:00 VISIT [facility] PT - CHI LEVEL 4 [facility] 2021-01-29 2021-01-29 (TEL) STLMLC STLMLC [id number] Co mmon 00:00:00 00:00:00 [facility] 2021-01-29 2021-01-29 (TEL) STLMLC STLMLC [id number] Co mmon 00:00:00 00:00:00 [facility] 2021-01-27 2021-01-27 OFFICE STLMLC STLMLC [id number] Co mmon 00:00:00 00:00:00 VISIT EST Spir it PT LEVEL 3 - [facility] 2021-01-27 2021-01-27 (TEL) STLMLC STLMLC [id number] Co mmon 00:00:00 00:00:00 [facility] 2021-01-22 2021-01-22 (TEL) STLMLC STLMLC [id number] Co mmon 00:00:00 00:00:00 [facility] 2021-01-21 2021-01-21 OFFICE STLMLC STLMLC [id number] Co mmon 00:00:00 00:00:00 VISIT [facility] PT [facility] LEVEL 4 [facility] 2020-11-26 2020-11-26 Outpatient STLMLC STLMLC [id number] Common 00:00:00 00:00:00 [facility] 2020-11-20 2020-11-20 Outpatient STLMLC STLMLC [id number] Common 00:00:00 00:00:00 [facility] 2020-05-21 2020-05-22 [facility] 1.2.840 .114 [id number] 19:04:00 18:10:00 Tasneem Shaw 350.1.13.[address] [place] [address] [place] [address] [id number] [facility] 2020-05-21 2020-05-22 [facility] 1.2.840 .114 [id number] [facility] 19:04:00 18:10:00 Tasneem Shaw 350.1.13.10 ity Renée Mustafa [place] 4.2.7.2.[address] [place] [address] [phone] [facility] [address] 2019-12-01 2019-12-01 [facility] 1.2.840.114 [id number] 00:00:00 00:00:00 Kit Slade 350.1.13.10 [place] 4.2.7.2.686 Professio [phone] [address] 2019-12-01 2019-12-01 Georgie Campos, [facility] 1.2.840.114 [id number] Univers 00:00:00 00:00:00 Kit Slade 350.1.13.10 ity [place] [phone] [address] 2019-11-08 2019-11-08 Georgie Campos, [facility] 1.2.840.114 [id number] 00:00:00 00:00:00 Kit Slade 350.1.13.10 [place] 4.2.7.2.686 Professio [phone] [address] 2019-11-08 2019-11-08 Georgie Campos, [facility] 1.2.840.114 [id number] Univers 00:00:00 00:00:00 Kit Slade 350.1.13.10 [place] [phone] [address] 2019-10-17 2019-10-17 Georgie Campos, [facility] 1.2.840.114 [id number] 00:00:00 00:00:00 Kit Slade 350.1.13.10 [place] 4.2.7.2.686 Professio [phone] [address] 2019-10-17 2019-10-17 Georgie Campos, [facility] 1.2.840.114 [id number] Univers 00:00:00 00:00:00 Kit Slade 350.1.13.10 [place] [phone] [address] 2019-09-16 2019-09-16 Georgie Campos, [facility] 1.2.840.114 [id number] 00:00:00 00:00:00 Kit Slade 350.1.13.10 [place] 4.2.7.2.686 Professio [phone] [address] 2019-09-16 2019-09-16 [facility] 1.2.840.114 [id number] Univers 00:00:00 00:00:00 Kit Slade 350.1.13.10 [place] [phone] [address] 2019-07-18 2019-07-18 [facility] 1.2.840.114 [id number] 00:00:00 00:00:00 Kit Slade 350.1.13.10 [place] 4.2.7.2.686 Professio [phone] [address] 2019-07-18 2019-07-18 [facility] 1.2.840.114 [id number] Univers 00:00:00 00:00:00 Kit Slade 350.1.13.10 [place] [phone] [address] 2019-07-17 2019-07-17 [place] [facility] 1.2.840.114 [id number] 00:00:00 00:00:00 Kit Tsaiton 350.1.13.10 [place] 4.2.7.2.686 Professio [phone] [address] 2019-07-17 2019-07-17 [place] [facility] 1.2.840.114 [id number] [facility] 00:00:00 00:00:00 Kit Tsaiton 350.1.13.10 [place] [phone] [address] 2019-05-27 2019-05-27 Heather R KIT CAMPOS [facility] [id number] [facility] 11:00:00 13:00:07 KIT CAMPOS itrober [facility] 2018-10-30 2018-10-30 Orders Doctor CLEMENTE 1.2.840.114 [id number] 00:00:00 00:00:00 Only Unassigned, JANNET 350.1.13.10 [place] [facility] 4.2.7.2.686 [phone] 009 2018-10-30 2018-10-30 Orders Doctor CHYNA Brower2.840.114 [id number] Univers 00:00:00 00:00:00 Only Unassigned, JANNET 350.1.13.10 ity of [place] [facility] 4.2.7.2.686 [place] [phone] [place] [address] Branch Results Test Description Test Time Test Comments Results Result Sourc e Comments TISSUE EXAM 2019-04-15 Surgical Pathology 18:37:00 Report Case: [id number] Authorizing Provider: Lencho Delgado, Collected: 04/09/2019 1054 Ordering Location: [facility] Received: 04/09/2019 1223 PERIOPERATIVE SERVICES Pathologist: Jose Alfredo Dozier MD Specimen: Aortic Valve, AORTIC VALVE LEAFLET HEART, AORTIC VALVE, VALVULECTOMY:LEAFLETS WITH NODULAR CALCIFIC ATHEROSCLEROTIC THICKENING Signing Pathologist Direct Phone Line: [phone] ally signed by Jose Alfredo Dozier MD on 04/15/2019 at 6:37 [id number]; [id number]-[id number] aortic valve stenosisAortic valve leafletReceived fresh with patient's demographic information and surgical accession number are fragments of calcified valvular leaflet, 3.5 x 2 x up to 1 cm in greatest dimension. Feed Research Technician section submitted in A1 for decalcification. HL/plPerformed [...] = 413) 0 /100 WBC 0 -0 [id number] 04:42:00 Test Item Value Reference Range Interpretation Comments MAGNESIUM (BEAKER) (test code = 1.8 mg/dL 1.6-2.6 627) BASIC METABOLIC [id number] 04:42:00 Test Item Value Reference Range Interpretation [...] PATIEN TS. CBC W/PLT COUNT & AUTO [id number] 04:28:00 Test Item Value Reference Range Interpretation [...] = 2801) CBC W/PLT COUNT & AUTO [id number] 11:55:00 Test Item Value Reference Range Interpretation [...] H PERCENT (BEAKER) (test code = 2801) [id number] 08:43:00 Test Item Value Reference Range Interpretation Comments MAGNESIUM (BEAKER) 1.9 mg/dL 1.6-2.6 Specimen slightly (test code = 627) hemolyzed BASIC METABOLIC [id number] 08:43:00 Test Item Value Reference Range Interpretation [...] S NOT APPLICABLE FOR DIALYSIS PATIEN TS. [id number] 03:36:00 Test Item Value Reference Range Interpretation Comments MAGNESIUM (BEAKER) (test code = 1.8 mg/dL 1.6-2.6 627) BASIC METABOLIC [id number] 03:36:00 Test Item Value Reference Range Interpretation [...] PATIEN TS. CBC W/PLT COUNT & AUTO [id number] 03:10:00 Test Item Value Reference Range Interpretation [...] 0-1 PERCENT (BEAKER) (test code = 2801) [id number] 06:05:00 Test Item Value Reference Range Interpretation Comments MAGNESIUM (BEAKER) (test code = 1.9 mg/dL 1.6-2.6 627) BASIC METABOLIC [id number] 06:05:00 Test Item Value Reference Range Interpretation [...] PATIEN TS. CBC W/PLT COUNT & AUTO [id number] 05:42:00 Test Item Value Reference Range Interpretation [...] PERCENT (BEAKER) (test code = 2801) POCT-GLUCOSE [id number] 18:07:00 Test Item Value Reference Range Interpretation Comments POC-GLUCOSE METER 97 mg/dL 70-110 : TESTED A T [facility] 6720 (WESTAKER) (test code = GERALD Schmitz [facility], 1538) 78422: Human Resources Technician/Techni criss ID = [id number] for IRAIS ESQUIVEL POCT-GLUCOSE [id number] 13:23:00 Test Item Value Reference Range Interpretation Comments POC-GLUCOSE METER 92 mg/dL 70-110 : TESTED A T [facility] 6720 (МАРИЯ) (test code = GERALD Schmitz [facility], 1538) 19073: Human Resources Technician/Techni criss ID = [id number] for IRAIS ESQUIVEL TROPONIN [id number] 12:02:00 Test Item Value Reference Range Interpretation Comments TROPONIN I (МАРИЯ) (test code = 0.66 ng/mL 0.00-0.03 [facility]) Troponin I (TnI) levels must be [...] acidosis, acute neurological disease, and persistent tachyarrhythmia.POCT-GLUCOSE [id number] 08:03:00 Test Item Value Reference Range Interpretation Comments POC-GLUCOSE METER 99 mg/dL 70-110 : TESTED A T [facility] 6720 (МАРИЯ) (test code = GERALD Schmitz [facility], 1538) 82355: Human Resources Technician/Techni criss ID = [id number] for IRAIS ESQUIVEL RAD, CHEST, 1 VIEW, NON [id number] 07:02:00Reason for exam:->chest tubeShould this be performed at the bedside?->YesFINAL REPORT CLINICAL INDICATION: Support lines. Comparison: 04/10/2019 The card iomediastinal contours are stable. Central pulmonary vascular prominence and bilateral parenchymal and pleural opacities are similar to previous. There is no pneumothorax. A right IJ CVC has been removed. Signed: Eligio New MDReport Verified Date/Time: 04/11/2019 07:02:55 A [id number] 03:58:00 Test Item Value Reference Range Interpretation [...] failure, acidosis, acute neurological disease, and persistent tachyarrhythmia.[id number] 03:34:00 Test Item Value Reference Range Interpretation Comments PHOSPHORUS (BEAKER) (test code = 2.4 mg/dL 2.3-4.7 604) [id number] 03:34:00 Test Item Value Reference Range Interpretation Comments MAGNESIUM (BEAKER) (test code = 2.0 mg/dL 1.6-2.6 627) BASIC METABOLIC [id number] 03:34:00 Test Item Value Reference Range Interpretation [...] 0-0 (BEAKER) (test code = 413) POCT-GLUCOSE [id number] 22:10:00 Test Item Value Reference Range Interpretation Comments POC-GLUCOSE METER 139 mg/dL 70-110 H : TESTED A T [facility] 6720 (Annelutfen.comAKER) (test code = [facility], 153) 05401: Human Resources Technician/Techni criss ID = [id number] for LYUBOV MARMOLEJO POCT-GLUCOSE [id number] 21:27:00 Test Item Value Reference Range Interpretation Comments POC-GLUCOSE METER 126 mg/dL 70-110 H : TESTED A T [facility] 6720 (Annelutfen.comAKER) (test code = [facility], 153) 50252: Human Resources Technician/Techni criss ID = [id number] for Cr uz, Natty POCT-GLUCOSE [id number] 12:13:00 Test Item Value Reference Range Interpretation Comments POC-GLUCOSE METER 190 mg/dL 70-110 H : TESTED A T [facility] 6720 (BEAKER) (test code = GERALD ARELLANO ID, 1538) 33459: Human Resources Technician/Techni criss ID = [id number] for NIXON SELBY RAD, CHEST, 1 VIEW, NON [id number] 04:52:00while patient is intubated or has chest [...] contours. Stable surgical changes.Additional findings: None. Signed: Tana Cortés [facility] Verified Date/Time: 04/10/2019 04:52:01 [facility] (HEMOGRAM ONLY)2019-04-10 03:54:00 Test Item Value Reference [...] /100 WBC 0-0 (test code = 413) [id number] 03:40:00 Test Item Value Reference Range Interpretation Comments PHOSPHORUS (BEAKER) (test code = 4.4 mg/dL 2.3-4.7 604) [id number] 03:40:00 Test Item Value Reference Range Interpretation Comments MAGNESIUM (BEAKER) (test code = 1.9 mg/dL 1.6-2.6 627) BASIC METABOLIC [id number] 03:40:00 Test Item Value Reference Range Interpretation [...] NOT APPLICABLE FOR DIALYSIS PATIEN TS. POCT-GLUCOSE [id number] 23:09:00 Test Item Value Reference Range Interpretation Comments POC-GLUCOSE METER 124 mg/dL 70-110 H : TESTED A T [facility] 6720 (BEAKER) (test code = GERALD ARELLANO ID, 1538) 12956: Human Resources Technician/Techni criss ID = [id number] for CLAUDIA ERICKSON POCT-GLUCOSE [id number] 18:45:00 Test Item Value Reference Range Interpretation Comments POC-GLUCOSE METER 145 mg/dL 70-110 H : TESTED A T [facility] 6720 (BEAKER) (test code = GERALD Schmitz [facility], 1538) 95198: Human Resources Technician/Techni criss ID = [id number] for Brown Santos POCT-GLUCOSE [id number] 17:16:00 Test Item Value Reference Range Interpretation Comments POC-GLUCOSE METER 154 mg/dL 70-110 H : Will Rep eat Test: (BEAKER) (test code = TESTED AT [facility] 6720 1538) [facility], 84010: Human Resources Technician/Techni criss ID = [id number] for IVAN HUSSEIN BLOOD GAS, [id number] 16:11:00 Test Item Value Reference Range Interpretation [...] (BEAKER) (test code = 1819) 40.0 % [id number] 14:13:00 Test Item Value Reference Range Interpretation Comments MAGNESIUM (BEAKER) (test code = 1.6 mg/dL 1.6-2.6 627) RAD, CHEST, 1 VIEW, NON [id number] 13:42:00Reason for exam:->Status post CV Surgery post op day 0Should this be performed at the bedside?->YesFINAL REPORT TECHNIQUE: Frontal chest radiograph dated 04/09/2019. CLINICAL HISTORY: Status post CV surgery COMPARISON STUDY: Chest radiographs dated 04/04/2019 Impression:Tracheostomy cannula is 5.4 cm above the ken. Right internal jugular venous catheter tip projects over theregion of the superior vena cava/right atrial junction. Enteric tube is seen with the tip below the edge of the film. A mediastinal drain is present. Left retrocardiac atelectasis is seen. No pleural effusion or pneumothorax. Cardiomediastinal silhouette is unremarkable. No pulmonary edema. Sternotomywires are intact and well aligned. Signed: Bora Espino MDReport Verified Date/Time: 04/09/2019 13:42:07 Reading Location: [facility] Reading Room CBC W/PLT COUNT & AUTO [id number] 13:21:00 Test Item Value Reference Range Interpretation [...] = 3438) Received comment: User comments: Slide comments:[id number] 13:20:00 Test Item Value Reference Range Interpretation Comments FIBRINOGEN LEVEL (BEAKER) (test 222 mg/dl 225-434 L code = 658) [id number] 13:20:00 Test Item Value Reference Range Interpretation Comments PARTIAL THROMBOPLASTIN TIME 34.1 seconds 22.5-36.0 (BEAKER) (test code = 760) PROTHROMBIN [id number] 13:19:00 Test Item Value Reference Range Interpretation Comments PROTIME (BEAKER) (test code = 19.1 seconds 11.9-14.2 H 759) INR (BEAKER) (test code = 370) 1.7 <=5.9 Effective 11/07/2018: PT Reference Range ChangeNew: 11.9-14.2 Previous: 11.7- 14.7RECOMMENDED COUMADIN/WARFARIN INR THERAPY RANGESSTANDARD DOSE: 2.0-3.0 Includes: PROPHYLAXIS for venous thrombosis, systemic embolization; TREATMENT for venous thrombosis and/or pulmonary embolus.HIGH RISK: Target INR is 2.5-3.5 for patients wiht mechanical heart valves.[id number] 13:17:00 Test Item Value Reference Range Interpretation Comments PHOSPHORUS (BEAKER) (test code = 3.5 mg/dL 2.3-4.7 604) BASIC METABOLIC [id number] 13:17:00 Test Item Value Reference Range Interpretation [...] APPLICABLE FOR DIALYSIS PATIEN TS. LACTIC ACID, [id number] 13:13:00 Test Item Value Reference Range Interpretation Comments LACTATE BLOOD ARTERIAL (2) 0.9 mmol/L 0.5-2.2 (BEAKER) (test code = 2874) CALCIUM, [id number] 13:03:00 Test Item Value Reference Range Interpretation Comments CALCIUM IONIZED (BEAKER) (test 1.19 mmol/L 1.12-1.27 code = 698) PH, BLOOD (BEAKER) (test code = 7.36 1810) BLOOD GAS, [id number] 13:02:00 Test Item Value Reference Range Interpretation [...] code = 1819) 60.0 % OXYGEN SATURATION, [id number] 12:56:00 Test Item Value Reference Range Interpretation [...] 59.5 MM 55.0-65.0 (test code = 1413) [id number] 12:03:00 Test Item Value Reference Range Interpretation Comments FIBRINOGEN LEVEL (BEAKER) (test 224 mg/dl 225-434 L code = 658) [id number] 12:03:00 Test Item Value Reference Range Interpretation Comments PARTIAL THROMBOPLASTIN TIME 37.1 seconds 22.5-36.0 H (BEAKER) (test code = 760) PROTHROMBIN [id number] 12:02:00 Test Item Value Reference Range Interpretation Comments PROTIME (BEAKER) (test code = 19.4 seconds 11.9-14.2 H 759) INR (BEAKER) (test code = 370) 1.7 <=5.9 Effective 11/07/2018: PT Reference Range ChangeNew: 11.9-14.2 Previous: 11.7- 14.7RECOMMENDED COUMADIN/WARFARIN INR THERAPY RANGESSTANDARD DOSE: 2.0-3.0 Includes: PROPHYLAXIS for venous thrombosis, systemic embolization; TREATMENT for venous thrombosis and/or pulmonary embolus.HIGH RISK: Target INR is 2.5-3.5 for patients wiht mechanical heart valves.PLATELET [id number] 11:51:00 Test Item Value Reference Range Interpretation Comments PLATELET COUNT (BEAKER) (test 116 K/CU MM 150-450 L code = 756) POTASSIUM-STAT [id number] 11:47:00 Test Item Value Reference Range Interpretation Comments POTASSIUM (BEAKER) (test code = 4.8 meq/L 3.6-5.5 379) BLOOD GAS, [id number] 11:47:00 Test Item Value Reference Range Interpretation [...] (test code = 1819) 97.0 % CALCIUM, [id number] 11:47:00 Test Item Value Reference Range Interpretation Comments CALCIUM IONIZED (BEAKER) (test 1.08 mmol/L 1.12-1.27 L code = 698) PH, BLOOD (BEAKER) (test code = 7.30 1810) GLUCOSE-STAT [id number] 11:47:00 Test Item Value Reference Range Interpretation Comments GLUCOSE RANDOM (BEAKER) (test code 175 mg/dL 70-110 H = 652) SODIUM NA-STAT [id number] 11:47:00 Test Item Value Reference Range Interpretation Comments SODIUM (BEAKER) (test code = 381) 133 meq/L 135-148 L HGB/HCT (H&H) - STAT [id number] 11:47:00 Test Item Value Reference Range Interpretation [...] L (test code = 1413) BLOOD GAS, [id number] 11:17:00 Test Item Value Reference Range Interpretation [...] (test code = 1819) 91.0 % GLUCOSE-STAT [id number] 11:17:00 Test Item Value Reference Range Interpretation Comments GLUCOSE RANDOM (BEAKER) (test code 149 mg/dL 70-110 H = 652) HGB/HCT (H&H) - STAT [id number] 11:17:00 Test Item Value Reference Range Interpretation Comments HEMOGLOBIN (BEAKER) (test code = 8.5 g/dL 13.0-16.8 L 410) HEMATOCRIT (BEAKER) (test code = 25.0 % 40.0-50.0 L 411) SODIUM NA-STAT [id number] 11:17:00 Test Item Value Reference Range Interpretation Comments SODIUM (BEAKER) (test code = 381) 133 meq/L 135-148 L POTASSIUM-STAT [id number] 11:16:00 Test Item Value Reference Range Interpretation Comments POTASSIUM (BEAKER) (test code = 4.9 meq/L 3.6-5.5 379) [id number] 11:10:00 Test Item Value Reference Range Interpretation Comments ACTIVATED CLOTTING TIME 125 sec Refe rence Range: 74-137 (BEAKER) (test code = second s, 441) Baseline/TESTED AT [place] [id number] [facility] 770 0 [id number] 11:10:00 Test Item Value Reference Range Interpretation Comments ACTIVATED CLOTTING TIME 549 sec Refe rence Range: 74-137 (BEAKER) (test code = second s, 441) Baseline/TESTED AT [facility] 6720 [facility] 7703 0 [id number] 11:10:00 Test Item Value Reference Range Interpretation Comments ACTIVATED CLOTTING TIME 675 sec Refe rence Range: 74-137 (BEAKER) (test code = second s, 441) Baseline/TESTED AT [facility] 67[address] [facility] 7703 0 [id number] 11:10:00 Test Item Value Reference Range Interpretation Comments ACTIVATED CLOTTING TIME 885 sec Refe rence Range: 74-137 (BEAKER) (test code = second s, 441) Baseline/TESTED AT [facility] 67[address] [facility] 7703 0 [id number] 11:10:00 Test Item Value Reference Range Interpretation Comments ACTIVATED CLOTTING TIME 643 sec Refe rence Range: 74-137 (BEAKER) (test code = second s, 441) Baseline/TESTED AT [facility] 67[address] [facility] 7703 0 [id number] 10:55:00 Test Item Value Reference Range Interpretation Comments FIBRINOGEN LEVEL (BEAKER) (test 228 mg/dl 225-434 code = 658) [id number] 10:55:00 Test Item Value Reference Range Interpretation Comments PARTIAL THROMBOPLASTIN TIME 41.1 seconds 22.5-36.0 H (BEAKER) (test code = 760) PROTHROMBIN TIME/[id number] 10:54:00 Test Item Value Reference Range Interpretation Comments PROTIME (BEAKER) (test code = 21.6 seconds 11.9-14.2 H 759) INR (BEAKER) (test code = 370) 2.0 <=5.9 Effective 11/07/2018: PT Reference Range ChangeNew: 11.9-14.2 Previous: 11.7- 14.7RECOMMENDED COUMADIN/WARFARIN INR THERAPY RANGESSTANDARD DOSE: 2.0-3.0 Includes: PROPHYLAXIS for venous thrombosis, systemic embolization; TREATMENT for venous thrombosis and/or pulmonary embolus.HIGH RISK: Target INR is 2.5-3.5 for patients wiht mechanical heart valves.PLATELET [id number] 10:44:00 Test Item Value Reference Range Interpretation Comments PLATELET COUNT (BEAKER) (test code 83 K/CU MM 150-450 L = 756) BLOOD GAS, [id number] 10:44:00 Test Item Value Reference Range Interpretation [...] code = 1819) 92.0 % SODIUM NA-STAT [id number] 10:44:00 Test Item Value Reference Range Interpretation Comments SODIUM (BEAKER) (test code = 381) 130 meq/L 135-148 L GLUCOSE-STAT [id number] 10:44:00 Test Item Value Reference Range Interpretation Comments GLUCOSE RANDOM (BEAKER) (test code 154 mg/dL 70-110 H = 652) HGB/HCT (H&H) - STAT [id number] 10:44:00 Test Item Value Reference Range Interpretation Comments HEMOGLOBIN (BEAKER) (test code = 9.1 g/dL 13.0-16.8 L 410) HEMATOCRIT (BEAKER) (test code = 27.0 % 40.0-50.0 L 411) CALCIUM, [id number] 10:44:00 Test Item Value Reference Range Interpretation Comments CALCIUM IONIZED (BEAKER) (test 1.11 mmol/L 1.12-1.27 L code = 698) PH, BLOOD (BEAKER) (test code = 7.40 1810) POTASSIUM-STAT [id number] 10:40:00 Test Item Value Reference Range Interpretation Comments POTASSIUM (BEAKER) (test code = 5.0 meq/L 3.6-5.5 379) BLOOD GAS, [id number] 09:57:00 Test Item Value Reference Range Interpretation Comments PH ARTERIAL (BEAKER) (test code = 7.43 7.35-7.45 383) PCO2 ARTERIAL (BEAKER) (test code 37 mmHg 35-45 = 384) PO2 ARTERIAL (BEAKER) (test code 284 mmHg 80-90 H = 385) O2 SATURATION ARTERIAL (BEAKER) 99.7 % 96.0-97.0 H (test code = 386) HCO3 ARTERIAL (BEAKER) (test code 25 mmol/L = 388) BASE EXCESS ARTERIAL (BEAKER) -0.1 mmol/L -2.0-3.0 (test code = 387) PATIENT TEMPERATURE (BEAKER) 34.1 C (test code = 1818) FIO2 (BEAKER) (test code = 1819) 80.0 % GLUCOSE-STAT [id number] 09:57:00 Test Item Value Reference Range Interpretation Comments GLUCOSE RANDOM (BEAKER) (test code 168 mg/dL 70-110 H = 652) SODIUM NA-STAT [id number] 09:57:00 Test Item Value Reference Range Interpretation Comments SODIUM (BEAKER) (test code = 381) 131 meq/L 135-148 L POTASSIUM-STAT [id number] 09:57:00 Test Item Value Reference Range Interpretation Comments POTASSIUM (BEAKER) (test code = 5.9 meq/L 3.6-5.5 H 379) HGB/HCT (H&H) - STAT [id number] 09:57:00 Test Item Value Reference Range Interpretation Comments HEMOGLOBIN (BEAKER) (test code = 8.5 g/dL 13.0-16.8 L 410) HEMATOCRIT (BEAKER) (test code = 25.0 % 40.0-50.0 L 411) BLOOD GAS, [id number] 09:31:00 Test Item Value Reference Range Interpretation [...] code = 1819) 65.0 % SODIUM NA-STAT [id number] 09:31:00 Test Item Value Reference Range Interpretation Comments SODIUM (BEAKER) (test code = 381) 131 meq/L 135-148 L GLUCOSE-STAT [id number] 09:31:00 Test Item Value Reference Range Interpretation Comments GLUCOSE RANDOM (BEAKER) (test code 175 mg/dL 70-110 H = 652) HGB/HCT (H&H) - STAT [id number] 09:31:00 Test Item Value Reference Range Interpretation Comments HEMOGLOBIN (BEAKER) (test code = 7.7 g/dL 13.0-16.8 L 410) HEMATOCRIT (BEAKER) (test code = 23.0 % 40.0-50.0 L 411) POTASSIUM-STAT [id number] 09:29:00 Test Item Value Reference Range Interpretation Comments POTASSIUM (BEAKER) (test code = 5.5 meq/L 3.6-5.5 379) POTASSIUM-STAT [id number] 09:07:00 Test Item Value Reference Range Interpretation Comments POTASSIUM (BEAKER) 6.9 meq/L 3.6-5.5 HH Sample NO T Hemolyzed. (test code = 379) BLOOD GAS, [id number] 09:05:00 Test Item Value Reference Range Interpretation [...] (test code = 1819) 70.0 % GLUCOSE-STAT [id number] 09:05:00 Test Item Value Reference Range Interpretation Comments GLUCOSE RANDOM (BEAKER) (test code 216 mg/dL 70-110 H = 652) HGB/HCT (H&H) - STAT [id number] 09:05:00 Test Item Value Reference Range Interpretation Comments HEMOGLOBIN (BEAKER) (test code = 8.0 g/dL 13.0-16.8 L 410) HEMATOCRIT (BEAKER) (test code = 24.0 % 40.0-50.0 L 411) SODIUM NA-STAT [id number] 09:05:00 Test Item Value Reference Range Interpretation Comments SODIUM (BEAKER) (test code = 381) 123 meq/L 135-148 L GLUCOSE-STAT [id number] 08:03:00 Test Item Value Reference Range Interpretation Comments GLUCOSE RANDOM (BEAKER) (test code 107 mg/dL 70-110 = 652) POTASSIUM-STAT [id number] 08:03:00 Test Item Value Reference Range Interpretation Comments POTASSIUM (BEAKER) (test code = 4.2 meq/L 3.6-5.5 379) BLOOD GAS, [id number] 08:03:00 Test Item Value Reference Range Interpretation [...] code = 1819) 100.0 % SODIUM NA-STAT [id number] 08:03:00 Test Item Value Reference Range Interpretation Comments SODIUM (BEAKER) (test code = 381) 130 meq/L 135-148 L HGB/HCT (H&H) - STAT [id number] 08:03:00 Test Item Value Reference Range Interpretation Comments HEMOGLOBIN (BEAKER) (test code = 12.3 g/dL 13.0-16.8 L 410) HEMATOCRIT (BEAKER) (test code = 36.0 % 40.0-50.0 L 411) CALCIUM, [id number] 08:02:00 Test Item Value Reference Range Interpretation Comments CALCIUM IONIZED (BEAKER) (test 1.23 mmol/L 1.12-1.27 code = 698) PH, BLOOD (BEAKER) (test code = 7.45 1810) POCT-GLUCOSE [id number] 06:05:00 Test Item Value Reference Range Interpretation Comments POC-GLUCOSE METER 96 mg/dL 70-110 : TESTED Arturo T [facility] 6720 (BEAKER) (test code = GERALD ARELLANO ID, [id number]) [id number]: Human Resources Technician/Techni criss ID = [id number] for JORD AN, LACRYSTAL RAD, CHEST, 2 [id number] 13:23:00In departmentReason for exam:->Aoritc valve replacement Pre op screenFINAL REPORT CLINICAL HISTORY: Aortic valve replacement Pre op screen TECHNIQUE: 2 views of the chest COMPARISON: None IMPRESSION: There are no focal infiltrates or effusions. The c ardiomediastinal silhouette is within normal limits for size. The osseous structures appear intact. Signed: Jaiden Galvan Verified Date/Time: 04/04/2019 13:23:46 Reading Location: [facility] Radiology Reading Room HEMOGLOBIN [id number] 13:07:00 Test Item Value Reference Range Interpretation Comments HEMOGLOBIN A1C (BEAKER) (test code = 4.7 % 4.3-6.1 368) [id number] 12:23:00 Test Item Value Reference Range Interpretation Comments MAGNESIUM (BEAKER) (test code = 2.0 mg/dL 1.6-2.6 627) COMPREHENSIVE METABOLIC [id number] 12:23:00 Test Item Value Reference Range Interpretation [...] NOT APPLICABLE FOR DIALYSIS PATIEN TS. LIPID [id number] 12:23:00 Test Item Value Reference Range Interpretation Comments TRIGLYCERIDES (BEAKER) (test code = 66 mg/dL 540) CHOLESTEROL (BEAKER) (test code = 160 mg/dL 631) HDL CHOLESTEROL (BEAKER) (test code 63 mg/dL = 976) LDL CHOLESTEROL CALCULATED (BEAKER) 84 mg/dL (test code = 633) Triglyceride Reference Range: Low Risk <150 Borderline 150-199 High Risk 200- 499 Very High Risk >=500Cholesterol Reference Range: Low Risk <200 Borderline 200-239 High Risk >240HDL Cholesterol Reference Range: Low Risk >=60 High Risk <40LDL Cholesterol Reference Range: Optimal <100 Near Optimal 100-129 Borderline 130-159 High 160-189 Very High [id number] 12:02:00 Test Item Value Reference Range Interpretation Comments PARTIAL THROMBOPLASTIN TIME 34.5 seconds 22.5-36.0 (BEAKER) (test code = 760) PROTHROMBIN [id number] 12:01:00 Test Item Value Reference Range Interpretation Comments PROTIME (BEAKER) (test code = 13.9 seconds 11.9-14.2 759) INR (BEAKER) (test code = 370) 1.1 <=5.9 Effective 11/07/2018: PT Reference Range ChangeNew: 11.9-14.2 Previous: 11.7- 14.7RECOMMENDED COUMADIN/WARFARIN INR THERAPY RANGESSTANDARD DOSE: 2.0-3.0 Includes: PROPHYLAXIS for venous thrombosis, systemic embolization; TREATMENT for venous thrombosis and/or pulmonary embolus.HIGH RISK: Target INR is 2.5-3.5 for patients wiht mechanical heart valves.CBC W/PLT COUNT & AUTO [id number] 11:52:00 Test Item Value Reference Range Interpretation [...]
[2022-10-29] MEDS ORDERED: NA CHLORIDE 0.9% 1,000 ML ONE (14:04)
[2022-10-29] MEDS ORDERED: ONDANSETRON 4 MG/2 ML VIAL ONE (14:04)
[2022-10-29] MEDS ORDERED: FAMOTIDINE 20 MG/2 ML VIAL IV ONE (14:04)
[2022-10-29] MEDS ORDERED: MULTIVITAMINS 10 ML VIAL (INJ) IV ONE (14:04)
[2022-10-29] MEDS ORDERED: THIAMINE 200 MG/2 ML INJ ONE (14:04)
[2022-10-29 14:05] LABS: Absolute Lymphocytes (CBC) 1.2 K/uL (0.7-4.9); Hematocrit 37.4 % (39.6-49.0); Lymphocytes % 16.7 % (15.3-44.8); MCV 101.9 fL (80-100); MPV 6.8 fL (7.6-11.3); RBC Red Blood Cell Count 3.67 M/uL (4.33-5.43)
[2022-10-29] MEDS ORDERED: FOLIC ACID 5 MG/ML VIAL ONE (14:05)
[2022-10-29] MEDS ORDERED: CEFTRIAXONE 1000 MG/VIAL ONE (14:06)
[2022-10-29] MEDS ORDERED: NA CHLORIDE 0.9% 50 ML ONE (14:06)
[2022-10-29 14:17] LABS: Protime INR 1.05
[2022-10-29 14:26] LABS: Albumin 4.5 g/dL (3.4-5.0); Bilirubin Direct 0.7 mg/dL (0-0.2); Bilirubin Indirect, Calculated 1.2 mg/dL (0.2-0.8); Bilirubin Total 1.9 mg/dL (0.2-1.0); Magnesium 1.3 mg/dL (1.6-2.4); Potassium 3.2 mEq/L (3.5-5.1); Protein, Total 8.5 g/dL (6.4-8.2); Troponin High Sensitivity 18.5 pg/mL (<58.9)
--- NOTE | 2022-10-29 14:26 | RAD REPORT ---
EXAM DESCRIPTION: CT - Chest Abd Pelvis Wo Con - 10/29/2022 2:06 pm CLINICAL HISTORY: Shortness of breath/abdominal pain COMPARISON: 2021 TECHNIQUE: Computed axial tomography of the chest, abdomen and pelvis was obtained. Oral contrast wa s given. IV contrast was not requested. All CT scans are performed using dose optimization technique as appropriate and may include automated exposure control or mA/KV adjustment according to patient size. FINDINGS: The evaluation of mediastinum, ezra, vessels and solid organs is limited secondary to the lack of IV contrast administration The lungs are clear No mediastinal or hilar lymphadenopathy is seen. A pleural effusion is not present. A pericardial effusion is not seen. Coronary arterial calcificatio ns Fatty liver. Mildly nodular contour with prominent caudate lobe likely indicating chronic disease. Spleen, adrenals and kidneys appear grossly normal Pancreas is normal size. Mild stranding adjacent to the pancreatic head. There is no evidence of diverticulitis. Moderate right and small to moderate left inguinal hernias contain fat Increased density gallbladder Calcification SMA and renal arteries likely resulting in high-grade stenoses IMPRESSION: Mild pancreatitis Increased density within the gallbladder may represent sludge or stones. No gallbladder wall thickeni ng
[2022-10-29 14:47] LABS: SARS-CoV-2 Antigen Rapid Res Negative (Negative)
[2022-10-29 14:58] LABS: Specific Gravity 1.011 (1.005-1.030); Urine Bacteria None Seen /HPF (<20); Urine Bilirubin NEGATIVE (Negative); Urine Blood Negative (Negative); Urine Clarity Clear (Clear); Urine Color Light-Yellow (Yellow); Urine Crystals Unidentified Few /HPF (None Seen); Urine Glucose NEGATIVE (Negative); Urine Mucus Slight /HPF (None Seen); Urine Protein 1+ (Negative); Urine RBC <5 /HPF (None Seen); Urine Urobilinogen Normal (Normal)
--- NOTE | 2022-10-29 15:00 | RAD REPORT ---
EXAM DESCRIPTION: Ebony Single View10/29/2022 2:40 pm CLINICAL HISTORY: cough COMPARISON: 2021 FINDINGS: The lungs appear clear of acute infiltrate. The heart is normal size Postsurgical changes involve the chest IMPRESSION: No acute abnormalities displayed
[2022-10-29] MEDS ORDERED: NA CHLORIDE 0.9% 2,000 ML ONE (15:26)
[2022-10-29] MEDS ORDERED: LORazepam 2 MG/ML VIAL ONE (15:27)
[2022-10-29] MEDS ORDERED: KCL 20 MEQ/100 mL IVPB 100 ML IV ONE (15:32)
[2022-10-29] MEDS ORDERED: MAGNESIUM SULFATE 1 gm IVPB 0 GM/0 ML BAG IV ONE (15:40)
--- NOTE | 2022-10-29 15:53 | EDPHYS ---
Physician Documentation [facility] Name: Gavin Polo Jr Age: 67 yrs Sex: Male : 1955 Arrival Date: 10/29/2022 Time: 13:21 Bed 16 Private MD: ED Physician Britton Laurent HPI: 10/29 15:25 This 67 yrs old Male presents to ER via EMS with complaints of Anxiety, freedom Shortness Of Breath. 15:25 This 67 yrs old Male presents to ER via EMS with complaints of Anxiety, freedom Shortness Of Breath. 15:25 The patient has shortness of breath at rest. Onset: The symptoms/episode began/occurred freedom 2 day(s) ago. 15:27 Duration: The symptoms are continuous, and are steadily getting worse. The patient's freedom shortness of breath is aggravated by drinking. The patient presents with abdominal pain in the upper abdomen, abdominal distention in the upper abdomen, in the lower abdomen. Onset: The symptoms/episode began/occurred 2 day(s) ago. The patient presents to the emergency department with nausea, vomiting, that is continuous, abdominal pain, of the epigastric area, right upper quadrant and left upper quadrant. Possible causes: unknown. The symptoms are aggravated by food , alcohol. Associated signs and symptoms: Pertinent positives: nausea, vomiting. Severity of symptoms: At their worst the symptoms were moderate in the emergency department the symptoms are unchanged. Associated signs and symptoms: Pertinent positives: abdominal pain, nausea, vomiting. Historical: - Allergies: 13:35 No Known Allergies; ll1 - PMHx: 13:35 Anxiety; Atrial valve stenosis; barrots; central tremor; etoh abuse; GERD; Hypertension;ll1 - PSHx: 13:35 heart valve replacement; ll1 - Immunization history:: Adult Immunizations up to date. - Social history:: Smoking status: Patient denies any tobacco usage or history of. - Family history:: not pertinent. ROS: 15:27 Eyes: Negative for injury, pain, redness, and discharge, ENT: Negative for injury, freedom pain, and discharge, Neck: Negative for injury, pain, and swelling, Respiratory: Negative for shortness of breath, cough, wheezing, and pleuritic chest pain, Back: Negative for injury and pain, : Negative for injury, bleeding, discharge, and swelling, MS/Extremity: Negative for injury and deformity, Skin: Negative for injury, rash, and discoloration, Neuro: Negative for headache, weakness, numbness, tingling, and seizure, Psych: Negative for depression, anxiety, suicide ideation, homicidal ideation, and hallucinations, Allergy/Immunology: Negative for hives, rash, and allergies, Endocrine: Negative for neck swelling, polydipsia, polyuria, polyphagia, and marked weight changes, Hematologic/Lymphatic: Negative for swollen nodes, abnormal bleeding, and unusual bruising. 15:27 Constitutional: Positive for malaise. 15:27 Cardiovascular: Positive for palpitations. 15:27 Respiratory: Positive for cough, shortness of breath. 15:27 Abdomen/GI: Positive for abdominal pain, nausea and vomiting, abdominal distension, of the epigastric area, right upper quadrant and left upper quadrant. 15:27 Neuro: Positive for weakness. Exam: 15:27 Constitutional: This is a well developed, well nourished patient who is awake, alert, freedom and in no acute distress. Head/Face: Normocephalic, atraumatic. Eyes: Pupils equal round and reactive to light, extra-ocular motions intact. Lids and lashes normal. Conjunctiva and sclera are non-icteric and not injected. Cornea within normal limits. Periorbital areas with no swelling, redness, or edema. ENT: Nares patent. No nasal discharge, no septal abnormalities noted. Tympanic membranes are normal and external auditory canals are clear. Oropharynx with no redness, swelling, or masses, exudates, or evidence of obstruction, uvula midline. Mucous membranes moist. Neck: Trachea midline, no thyromegaly or masses palpated, and no cervical lymphadenopathy. Supple, full range of motion without nuchal rigidity, or vertebral point tenderness. No Meningismus. Chest/axilla: Normal chest wall appearance and motion. Nontender with no deformity. No lesions are appreciated. Respiratory: Lungs have equal breath sounds bilaterally, clear to auscultation and percussion. No rales, rhonchi or wheezes noted. No increased work of breathing, no retractions or nasal flaring. Back: No spinal tenderness. No costovertebral tenderness. Full range of motion. Male : Normal genitalia with no discharge or lesions. Skin: Warm, dry with normal turgor. Normal color with no rashes, no lesions, and no evidence of cellulitis. MS/ Extremity: Pulses equal, no cyanosis. Neurovascular intact. Full, normal range of motion. Psych: Awake, alert, with orientation to person, place and time. Behavior, mood, and affect are within normal limits. 15:27 Cardiovascular: Rate: tachycardic, actual rate is 119 bpm, Rhythm: regular, Pulses: Pulses are 4+ in bilateral radial, brachial, femoral, popliteal, posterior tibial and and dorsalis pedis arteries.. Heart sounds: normal, normal S1and S2, no S3 or S4, no murmur, no rub, no gallop, Edema: is not appreciated, JVD: is not appreciated. 15:27 ECG was reviewed by the Attending Physician. Vital Signs: 13:35 BP 155 / 105; Pulse 127; Resp 20; Temp 99.1(A); Pulse Ox 99% on R/A; Weight 94.8 kg; hb Height 5 ft. 7 in. ; Pain 5/10; 14:55 BP 180 / 125; Pulse 119; Resp 24; Pulse Ox 98% ; ll1 15:58 BP 153 / 128; Pulse 118; Resp 24; Pulse Ox 97% on R/A; ll1 16:35 BP 158 / 95; Pulse 131; Resp 22; Pulse Ox 96% on R/A; ll1 17:21 BP 160 / 100; Pulse 116; Resp 21; Temp 99.8(O); Pulse Ox 98% on R/A; Pain 0/10; ll1 13:35 Body Mass Index 32.73 (94.80 kg, 170.18 cm) hb 13:35 Pain Scale: Adult hb 17:21 Pain Scale: Adult ll1 MDM: 13:38 Patient medically screened. freedom 15:34 Differential diagnosis: Anxiety Reaction Chronic Obstructive Pulmonary Disease freedom Nonspecific abd pain, pancreatitis, diverticulitis, viral gastroenteritis, gastroenteritis, pneumonia, pulmonary edema, Pulmonary Embolism reactive airway disease, Sepsis Cholelithiasis, diverticulitis, gastritis, GI Bleed, Irritable bowel syndrome, Mesenteric ischemia or infarction, non-specific abd pain, Peptic Ulcer Disease, Pyelonephritis, urinary tract infection. Antibiotic administration: Not indicated, the patient does not have an appreciated infiltrate. Immunization status: Pneumococcal vaccine: Influenza vaccine: Data reviewed: vital signs, nurses notes, EMS record, lab test result(s), EKG, radiologic studies, CT scan, plain films. Consideration of Admission/Observation Patient was admitted/placed on observation. Escalation of care including admission/observation considered. I considered the following discharge prescriptions or medication management in the emergency department Medications were administered in the Emergency Department. See MAR. Independent interpretation of the following test(s) in the Emergency Department CT Scan: My interpretation is CT C/A/P. Test considered but Not performed: Ultrasound NO ABD USG. Historians other than the Patient: EMS: LONG HX OF ETOH, PCP DR RUTHERFORD. Care significantly affected by the following chronic conditions: Hypertension, Obesity, Liver Disease, ETOH , BARRETTS ESO. Care significantly affected by the following Social Determinants of Health: Misuse of alcohol and/or drugs. Counseling: I had a detailed discussion with the patient and/or guardian regarding: the historical points, exam findings, and any diagnostic results supporting the discharge/admit diagnosis, lab results, radiology results, the need for further work-up and treatment in the hospital. 10/29 13:41 Order name: Basic Metabolic Panel; Complete Time: 15:14 freedom 10/29 13:41 Order name: CBC with Diff; Complete Time: 15:14 freedom 10/29 13:41 Order name: LFT's; Complete Time: 15:14 freedom 10/29 13:41 Order name: Magnesium; Complete Time: 15:14 freedom 10/29 13:41 Order name: NT PRO-BNP; Complete Time: 15:14 freedom 10/29 13:41 Order name: PT-INR; Complete Time: 15:14 freedom 10/29 13:41 Order name: Troponin HS; Complete Time: 15:14 freedom 10/29 13:41 Order name: Lipase; Complete Time: 15:14 freedom 10/29 13:41 Order name: SARS RAPID; Complete Time: 15:14 freedom 10/29 13:41 Order name: Flu; Complete Time: 15:14 freedom 10/29 13:41 Order name: Urinalysis w/ reflexes; Complete Time: 15:14 freedom 10/29 13:41 Order name: Lactate w/ 2H reflex if indic.; Complete Time: 15:14 freedom 10/29 13:41 Order name: Blood Culture Adult (2) [facility] 10/29 13:45 Order name: ETOH Level; Complete Time: 15:14 eb 10/29 16:26 Order name: CBC with Automated Diff EDMS 10/29 16:26 Order name: CBC with Automated Diff [facility] 10/29 16:26 Order name: Comprehensive Metabolic Panel [facility] 10/29 16:26 Order name: Comprehensive Metabolic Panel [facility] 10/29 17:15 Order name: Lactate Sepsis 2 HR Follow-up [facility] 10/29 13:41 Order name: CT Chest Abdomen Pelvis W/O Contrast; Complete Time: 15:14 [facility] 10/29 14:17 Order name: Chest Single View; Complete Time: 15:14 [facility] 10/29 15:45 Order name: US Abdomen Limited [facility] 10/29 17:23 Order name: US [facility] 10/29 13:41 Order name: EKG; Complete Time: 13:41 [facility] 10/29 16:26 Order name: Heart Healthy [facility] 10/29 13:41 Order name: Cardiac monitoring; Complete Time: 15:04 [facility] 10/29 13:41 Order name: EKG - Nurse/Tech; Complete Time: 15:04 [facility] 10/29 13:41 Order name: IV Saline Lock; Complete Time: 13:42 [facility] 10/29 13:41 Order name: Labs collected and sent; Complete Time: 13:42 [facility] 10/29 13:41 Order name: O2 Per Protocol; Complete Time: 13:42 [facility] 10/29 13:41 Order name: O2 Sat Monitoring; Complete Time: 13:42 [facility] 10/29 14:31 Order name: Bates; Complete Time: 14:47 [facility] EC:27 Rate is 125 beats/min. Rhythm is regular. QRS [place] is Normal. [place] interval is normal. freedom QRS interval is normal. QT interval is normal. No Q waves. T waves are Normal. No ST changes noted. Clinical impression: NSR w/ Non-specific ST/T Changes, Sinus tachycardia, and No evidence of ischemia. Interpreted by me. Reviewed by me. Administered Medications: 13:51 Not Given (Duplicate Order): NS 0.9% IV 1000 ml IV at 125 ml/hr continuous freedom 14:30 Drug: Banana Bag - (NS 0.9% IV 1000 ml, foLIC Acid IVPB 1 mg, Thiamine IV 100 mg, ll1 Multivitamin IV 1 amp) Route: IV; Rate: 150 ml/hr; Site: left antecubital; 17:30 Follow up: IV Status: Infusion continued upon admission ll1 14:31 Drug: Famotidine IVP 20 mg Route: IVP; Site: left antecubital; ll1 14:47 Follow up: Response: No adverse reaction ll1 14:31 Drug: Ondansetron IVP 4 mg Route: IVP; Site: left antecubital; ll1 14:47 Follow up: Response: No adverse reaction 1 14:31 Drug: Thiamine IV 100 mg Route: IV; Rate: per protocol; Site: left antecubital; ll1 16:33 Follow up: IV Status: Completed infusion; IV Intake: 0.2ml 1 14:48 Drug: Rocephin IV 1 grams Route: IV; Rate: per protocol; Site: left antecubital; ll1 16:33 Follow up: Response: No adverse reaction; IV Status: Completed infusion; IV Intake: [id number] 15:15 Not Given (Duplicate Order): NS 0.9% IV 1000 ml IV at 125 ml/hr continuous freedom 15:24 Drug: NS 0.9% IV 1000 ml Route: IV; Rate: 1 bolus; Site: left antecubital; hb 16:04 Follow up: Response: No adverse reaction; IV Status: Completed infusion; IV Intake: ll1 1000ml 15:24 Drug: Ativan IVP 2 mg Route: IVP; Site: left antecubital; hb 16:34 Follow up: Response: No adverse reaction; Anxiety decreased; RASS: Alert and Calm (0) 1 15:30 Drug: Potassium Chloride IV 20 mEq Route: IV; Rate: per protocol; Site: left 1 antecubital; 17:14 Follow up: Response: No adverse reaction; IV Status: Completed infusion; IV Intake: 07cgic4 16:04 Drug: NS 0.9% IV 1000 ml Route: IV; Rate: 1 bolus; Site: left antecubital; ll1 17:15 Follow up: IV Status: Completed infusion; IV Intake: 1000ml 1 16:33 Not Given (changed order): NS 0.9% IV 500 ml IV at bolus once ll1 17:14 Drug: Magnesium Sulfate IVPB 2 grams Route: IVPB; Infused Over: 2 hrs; Site: left ll1 antecubital; 17:30 Follow up: IV Status: Infusion continued upon admission [facility] 17:14 Drug: Pantoprazole IVP 40 mg Route: IVP; Site: left antecubital; ll1 17:30 Follow up: Response: No adverse reaction ll1 Disposition Summary: 10/29/22 15:52 Hospitalization Ordered Hospitalization Status: Inpatient Admission freedom Provider: Christopher Church cha Location: Intensive Care Unit freedom Condition: Fair freedom Problem: new freedom Symptoms: have improved freedom Bed/Room Type: Standard freedom Room Assignment: 3-(10/29/22 17:05) eb Diagnosis - Essential (primary) hypertension freedom - Alcohol abuse freedom - Alcohol dependence with withdrawal freedom - Other chronic pancreatitis - ALCOHOLIC freedom - Tachycardia, unspecified freedom - Hypokalemia freedom - Hypomagnesemia freedom - Alcohol dependence with withdrawal delirium freedom Forms: - Medication Reconciliation Form freedom - SBAR form freedom Signatures: Dispatcher [employer] EDMS Britton Laurent MD MD cha Baxter, Heather, RN RN Natasha Lee Lynsay, RN RN ll1 Corrections: (The following items were deleted from the chart) 13:43 13:41 Urinalysis+U.LAB.BRZ ordered. EDMS EDMS 14:16 13:41 Chest Single View+RAD.RAD.BRZ ordered. EDMS EDMS 17:05 15:52 freedom eb
--- NOTE | 2022-10-29 15:53 | ER ---
Nurse's Notes [facility] Name: Gavin Polo Jr Age: 67 yrs Sex: Male : 1955 Arrival Date: 10/29/2022 Time: 13:21 Bed 16 Private MD: Diagnosis: Essential (primary) hypertension;Alcohol abuse;Alcohol dependence with withdrawal;Other chronic pancreatitis-ALCOHOLIC;Tachycardia, unspecified;Hypokalemia;Hypomagnesemia;Alcohol dependence with withdrawal delirium Presentation: 10/29 13:35 Chief complaint: EMS states: SOB, anxiety, and nausea x 3 hours. Coronavirus screen: At hb this time, the client does not indicate any symptoms associated with coronavirus-19. Ebola Screen: No symptoms or risks identified at this time. Initial Sepsis Screen: Does the patient meet any 2 criteria? No. Patient's initial sepsis screen is negative. Does the patient have a suspected source of infection? No. Patient's initial sepsis screen is negative. Risk Assessment: Do you want to hurt yourself or someone else? Patient reports no desire to harm self or others. Onset of symptoms was October 29, 2022. 13:35 Method Of Arrival: EMS: [facility] hb 13:35 Acuity: NICK 2 hb 13:36 Risk Assessment: Do you want to hurt yourself or someone else? Patient reports no ll1 desire to harm self or others. Historical: - Allergies: 13:35 No Known Allergies; ll1 - PMHx: 13:35 Anxiety; Atrial valve stenosis; barrots; central tremor; etoh abuse; GERD; Hypertension;ll1 - PSHx: 13:35 heart valve replacement; ll1 - Immunization history:: Adult Immunizations up to date. - Social history:: Smoking status: Patient denies any tobacco usage or history of. - Family history:: not pertinent. Screenin:49 [facility] ED Fall Risk Assessment (Adult) Score/Fall Risk Level 0 - 2 = Low Risk ll1 Oriented to surroundings, Maintained a safe environment, Educated pt \T\ family on fall prevention, incl call for assistance when getting out of bed, Hourly rounding (assess needs \T\ fall precautionary measures) done. Abuse screen: Denies threats or abuse. Nutritional screening: No deficits noted. Tuberculosis screening: No symptoms or risk factors identified. Assessment: 14:28 General: Appears uncomfortable, ill, Behavior is cooperative, appropriate for age, ll1 restless. General: Reports fatigue for anxiety. Pain: Denies pain. Neuro: Reports shaky. Cardiovascular: Reports fatigue, lightheadedness, nausea, palpitations, shortness of breath. Respiratory: Reports shortness of breath cough that is. 14:30 Reassessment: No changes from previously documented assessment. Patient and/or family ll1 updated on plan of care and expected duration. Pain level reassessed. Patient is alert, oriented x 3, equal unlabored respirations, skin warm/dry/pink. 14:48 Reassessment: No changes from previously documented assessment. Patient and/or family ll1 updated on plan of care and expected duration. Pain level reassessed. Patient is alert, oriented x 3, equal unlabored respirations, skin warm/dry/pink. 15:10 Reassessment: No changes from previously documented assessment. Patient and/or family ll1 updated on plan of care and expected duration. Pain level reassessed. 15:59 Reassessment: No changes from previously documented assessment. Patient and/or family ll1 updated on plan of care and expected duration. Pain level reassessed. Patient is alert, oriented x 3, equal unlabored respirations, skin warm/dry/pink. 17:29 Reassessment: No changes from previously documented assessment. Patient and/or family ll1 updated on plan of care and expected duration. Pain level reassessed. Patient is alert, oriented x 3, equal unlabored respirations, skin warm/dry/pink. Vital Signs: 13:35 BP 155 / 105; Pulse 127; Resp 20; Temp 99.1(A); Pulse Ox 99% on R/A; Weight 94.8 kg; hb Height 5 ft. 7 in. ; Pain 5/10; 14:55 BP 180 / 125; Pulse 119; Resp 24; Pulse Ox 98% ; ll1 15:58 BP 153 / 128; Pulse 118; Resp 24; Pulse Ox 97% on R/A; ll1 16:35 BP 158 / 95; Pulse 131; Resp 22; Pulse Ox 96% on R/A; ll1 17:21 BP 160 / 100; Pulse 116; Resp 21; Temp 99.8(O); Pulse Ox 98% on R/A; Pain 0/10; ll1 13:35 Body Mass Index 32.73 (94.80 kg, 170.18 cm) hb 13:35 Pain Scale: Adult hb 17:21 Pain Scale: Adult ll1 ED Course: 13:33 Patient arrived in ED. eb 13:35 Mabel Castellanos, RN is Primary Nurse. ll1 13:35 Arm band placed on Patient placed in an exam room, on a stretcher. ll1 13:35 Inserted saline lock: 20 gauge in left antecubital area, using aseptic technique. Blood ll1 collected. 13:36 Triage completed. hb 13:37 Britton Laurent MD is Attending Physician. freedom 14:08 CT Chest Abdomen Pelvis W/O Contrast In Process Unspecified. EDMS 14:10 Blood Culture Adult (2) Sent. ll1 14:10 Lactate w/ 2H reflex if indic. Sent. ll1 14:42 Chest Single View In Process Unspecified. EDMS 14:48 Bates cath inserted, using sterile technique, 16 Fr., by me, balloon inflated, to ll1 gravity drainage, urine specimen collected. 14:56 Patient has correct armband on for positive identification. Bed in low position. Call ll1 light in reach. Side rails up X2. Client placed on continuous cardiac and pulse oximetry monitoring. NIBP monitoring applied. food and nutrition services assistant on. 15:46 Nu Church is Hospitalizing Provider. freedom 15:46 Hospitalizing Provider role handed off by Nu Church freedmo 15:46 Christopher Church MD is Hospitalizing Provider. freedom 15:58 Missed attempt(s): 22 gauge in right hand. forearm. Bleeding controlled, band aid ll1 applied, catheter tip intact. 17:29 No provider procedures requiring assistance completed. Patient admitted, IV remains in ll1 place. Administered Medications: 13:51 Not Given (Duplicate Order): NS 0.9% IV 1000 ml IV at 125 ml/hr continuous freedom 14:30 Drug: Banana Bag - (NS 0.9% IV 1000 ml, foLIC Acid IVPB 1 mg, Thiamine IV 100 mg, ll1 Multivitamin IV 1 amp) Route: IV; Rate: 150 ml/hr; Site: left antecubital; 17:30 Follow up: IV Status: Infusion continued upon admission ll1 14:31 Drug: Famotidine IVP 20 mg Route: IVP; Site: left antecubital; ll1 14:47 Follow up: Response: No adverse reaction 1 14:31 Drug: Ondansetron IVP 4 mg Route: IVP; Site: left antecubital; 1 14:47 Follow up: Response: No adverse reaction 1 14:31 Drug: Thiamine IV 100 mg Route: IV; Rate: per protocol; Site: left antecubital; ll1 16:33 Follow up: IV Status: Completed infusion; IV Intake: 0.2ml 1 14:48 Drug: Rocephin IV 1 grams Route: IV; Rate: per protocol; Site: left antecubital; ll1 16:33 Follow up: Response: No adverse reaction; IV Status: Completed infusion; IV Intake: [id number] 15:15 Not Given (Duplicate Order): NS 0.9% IV 1000 ml IV at 125 ml/hr continuous freedom 15:24 Drug: NS 0.9% IV 1000 ml Route: IV; Rate: 1 bolus; Site: left antecubital; hb 16:04 Follow up: Response: No adverse reaction; IV Status: Completed infusion; IV Intake: ll1 1000ml 15:24 Drug: Ativan IVP 2 mg Route: IVP; Site: left antecubital; hb 16:34 Follow up: Response: No adverse reaction; Anxiety decreased; RASS: Alert and Calm (0) [facility] 15:30 Drug: Potassium Chloride IV 20 mEq Route: IV; Rate: per protocol; Site: left [facility] antecubital; 17:14 Follow up: Response: No adverse reaction; IV Status: Completed infusion; IV Intake: [id number] 16:04 Drug: NS 0.9% IV 1000 ml Route: IV; Rate: 1 bolus; Site: left antecubital; 1 17:15 Follow up: IV Status: Completed infusion; IV Intake: 1000ml 1 16:33 Not Given (changed order): NS 0.9% IV 500 ml IV at bolus once [facility] 17:14 Drug: Magnesium Sulfate IVPB 2 grams Route: IVPB; Infused Over: 2 hrs; Site: left [facility] antecubital; 17:30 Follow up: IV Status: Infusion continued upon admission [facility] 17:14 Drug: Pantoprazole IVP 40 mg Route: IVP; Site: left antecubital; [facility] 17:30 Follow up: Response: No adverse reaction ll1 Medication: 14:49 VIS not applicable for this client. ll1 Intake: 16:04 IV: 1000ml; Total: 1000ml. ll1 16:33 IV: 50ml; Total: 1050ml. ll1 16:33 IV: 0ml; Total: 1050ml. ll1 17:14 IV: 50ml; Total: 1100ml. ll1 17:15 IV: 1000ml; Total: 2100ml. ll1 Outcome: 15:52 Decision to Hospitalize by Provider. freedom 17:29 Admitted to ICU accompanied by nurse, via stretcher, room ICU 3, on monitor, Report ll1 called to Aishwarya Muhammad RN 17:29 Condition: stable 17:29 Instructed on the need for admit. 17:57 Patient left the ED. eb Signatures: Dispatcher [employer] EDBritotn Tompkins MD MD cha Baxter, Heather, RN RN Natasha Newell Lynsay, RN RN ll1 Corrections: (The following items were deleted from the chart) 14:16 14:10 In radiology for Chest Single View+[email or web address]. EDDC EDDC
[2022-10-29] MEDS ORDERED: Magnesium Sulfate 2gm IVPB 2 G/50 ML BAG IV ONE (16:08)
[2022-10-29] MEDS ORDERED: ACETAMINOPHEN 500 MG TAB PO PRN (16:18)
[2022-10-29] MEDS ORDERED: ONDANSETRON 4 MG/2 ML VIAL IV PRN (16:18)
[2022-10-29] MEDS ORDERED: Nicardipine in Saline, Iso-Osm 20 MG/200 ML IV.SOLN. IV SCH ×2 (17:00→21:00)
[2022-10-29] MEDS ORDERED: PANTOPRAZOLE 40 MG INJ ONE (17:12)
--- NOTE | 2022-10-29 17:22 | RAD REPORT ---
EXAM DESCRIPTION: US - Abdomen Exam Limited - 10/29/2022 4:59 pm CLINICAL HISTORY: Abdominal pain. COMPARISON: 2021 FINDINGS: Small amount of gallbladder sludge The gallbladder wall is not thickened. A gallstone is not seen. The biliary tree is normal caliber. IMPRESSION: Small amount gallbladder sludge
[2022-10-29] MEDS: METOPROLOL TAR 25 MG TAB PO SCH (18:11)
[2022-10-29] MEDS: chlordiazePOXIDE HCl 5 MG CAP PO SCH (18:11)
[2022-10-29] MEDS: MORPHINE 2 MG/ML SYR IV PRN (18:26)
[2022-10-29] MEDS: cloNIDine HCL 0.1 MG TAB PO SCH (19:41)
[2022-10-29] MEDS ORDERED: Nicardipine/NS 25 MG/250 ML KIT IV ONE (20:20)
[2022-10-29 21:39] VITALS: O2SAT 99; BMI 32.7
[2022-10-29] MEDS: TEMAZEPAM 15 MG CAP PO PRN (22:06)
[2022-10-30] MEDS: chlordiazePOXIDE HCl 5 MG CAP PO SCH ×4 (00:06→20:01)
[2022-10-30 04:57] LABS: Absolute Lymphocytes (CBC) 1.3 K/uL (0.7-4.9); Hematocrit 37.1 % (39.6-49.0); Lymphocytes % 24.3 % (15.3-44.8); MCV 103.8 fL (80-100); MPV 7.2 fL (7.6-11.3); RBC Red Blood Cell Count 3.58 M/uL (4.33-5.43)
[2022-10-30 05:19] LABS: Albumin 3.8 g/dL (3.4-5.0); Bilirubin Total 1.6 mg/dL (0.2-1.0); Potassium 3.3 mEq/L (3.5-5.1); Protein, Total 7.7 g/dL (6.4-8.2)
[2022-10-30 05:54] LABS: Anisocytosis SLIGHT; Blood Morphology Comment NOTED (NOT SEEN); Platelet Estimate DECR; White Blood Cell Scan OK (OK)
[2022-10-30] MEDS: METOPROLOL TAR 25 MG TAB PO SCH ×2 (06:05→18:22)
[2022-10-30 07:39] LABS: Magnesium 2.2 mg/dL (1.6-2.4); Phosphorus 2.7 mg/dL (2.5-4.9)
[2022-10-30] MEDS ORDERED: NA CHLORIDE 0.9% 0 ML ONE (08:19)
[2022-10-30] MEDS ORDERED: THIAMINE 200 MG/2 ML INJ ONE (08:19)
[2022-10-30] MEDS: cloNIDine HCL 0.1 MG TAB PO SCH ×2 (08:23→14:00)
[2022-10-30] MEDS ORDERED: POTASSIUM CL SA 10 MEQ TAB PO ONE (09:00)
[2022-10-30] MEDS: FOLIC ACID 1 MG, MULTIVITAMINS INJ 10 ML, THIAMINE HCL 100 MG in NA CHLORIDE 0.9% 1,000 ML IV SCH (09:09)
[2022-10-30] MEDS ORDERED: NA CHLORIDE 0.9% 500 ML IV ONE (16:28)
[2022-10-30] MEDS ORDERED: METHYLPREDNISOLONE 125 MG INJ IV ONE (16:30)
--- NOTE | 2022-10-30 17:34 | EKG ---
Test Date: 2022-10-29 Test Time: 14:58:52 Compensation Programs Manager: KEKE MEASUREMENT RESULTS: Intervals: Rate: 125 CO: 144 QRSD: 76 QT: 308 QTc: 444 [place]: P: 55 CO: 144 QRS: 37 T: 57 INTERPRETIVE STATEMENTS: Sinus tachycardia with premature atrial complexes Otherwise normal ECG Compared to ECG 08/16/2021 07:23:58 Atrial premature complex(es) now present Sinus rhythm no longer present Electronically Signed On 10-30-22 17:33:12 CDT by Andrés Baptiste
[2022-10-30] MEDS: TAMSULOSIN 0.4 MG SR CAP PO SCH (20:01)
[2022-10-30] MEDS: DULOXETINE 30 MG CAP PO SCH (20:01)
--- NOTE | 2022-10-30 21:44 | P.HP ---
Certification for Inpatient Patient admitted to: Inpatient With expected LOS: >2 Midnights Patient will require the following post-hospital care: None Practitioner: I am a practitioner with admitting privileges, knowledge of patient current condition, hospital course, and medical plan of care. Services: Services provided to patient in accordance with Admission requirements found in Title 42 Section 412.3 of the Code of Federal Regulations Patient History Date of Service: 10/29/22 Reason for admission: Hypertensive emergency; alcohol intoxication History of Present Illness: patient is a 67-year-old gentleman came to the hospital with uncontrolled blood pressure. Patient is the alcoholic and he had been drinking regularly. He appears to have stopped a couple of days ago and appeared to be goal to withdrawal with increased tremors. A further history patient states he has essential tremors of the upper extremities. He was admitted to the hospital for further treatment of his hypertensive emergency. Blood pressure was 220/140s. He is started on a nicardipine drip. Wean patient down gradually biceps 25% of his mean arterial pressures. Hopefully we can switch him over to oral antihypertensives in the morning. Allergies No Known Allergies Allergy (Verified 12/25/18 21:45) Home Medications: Aspirin [Tanya Chewable Aspirin] 81 mg PO DAILY 10/29/22 Atorvastatin Calcium 20 mg PO DAILY 10/29/22 Duloxetine HCl 60 mg PO BID 10/29/22 Eszopiclone [Lunesta] 2 mg PO BEDTIME 10/29/22 Lactulose 10 g PO BID 10/29/22 Magnesium Oxide [Magnesium] 400 mg PO DAILY 10/29/22 Metoprolol Tartrate [Lopressor*] 25 mg PO BID 10/29/22 Multivitamin 1 tab PO DAILY 10/29/22 Omeprazole [Prilosec] 40 mg PO DAILY 10/29/22 Tamsulosin [Flomax*] 0.8 mg PO BEDTIME 10/29/22 Vitamin D3/Vitamin K2 (Mk4) [K2 Plus D3 Tablet] 1 tab PO DAILY 10/29/22 - Past Medical/Surgical History Has patient received pneumonia vaccine in the past: Yes Diabetic: No -: Hypertension -: Depression with anxiety -: GERD -: Essential tremors -: Alcohol abuse -: Atrial Valve stenosis -: cirrhosis -: hernia -: Left knee surgery -: heart valve replaced -: vasectomy Psychosocial/ Personal History: Patient is of 35 years. He has 1 child. Patient is retired. - Family History Brother Medical History: Other (see notes) Sister Medical History: Other (see notes) Notes: Half Sister-Breast Cancer Father Medical History: Cancer Mother Medical History: Cancer - Social History Smoking Status: Never smoker Alcohol use: Yes CD- Drugs: No Caffeine use: Yes Place of Residence: Home Review of Systems 10-point ROS is otherwise unremarkable Physical Examination - Vital Signs Temperature: 97.2 F Blood Pressure: 149/72 Pulse: 70 Respirations: 18 Pulse Ox (%): 98 - Physical Exam General: Alert, In no apparent distress, Oriented x3 HEENT: Atraumatic, PERRLA, Mucous membr. moist/pink, EOMI, Sclerae nonicteric Neck: Supple, 2+ carotid pulse no bruit, No LAD, Without JVD or thyroid abnormality Respiratory: Clear to auscultation bilaterally, Normal air movement Cardiovascular: Regular rate/rhythm, Normal S1 S2, No murmurs Gastrointestinal: Normal bowel sounds, Soft and benign, Non-distended, No tenderness Musculoskeletal: No clubbing, No swelling, No tenderness Integumentary: No rashes Neurological: Normal gait, Normal speech, Normal strength at 5/5 x4 extr, Normal tone, Sensation intact, Cranial nerves 3-12 intact, Normal affect, Other ( Upper extremity tremors) Lymphatics: No axilla or inguinal lymphadenopathy Assessment & Plan - Problems (Diagnosis) (1) Hypertensive emergency Current Visit: Yes Status: Acute (2) ARIEL (acute kidney injury) Current Visit: No Status: Acute (3) Alcohol abuse Current Visit: No Status: Acute (4) Alcohol withdrawal delirium Current Visit: No Status: Acute - Plan Plan: 1. Continue with antihypertensives 2. Nicardipine drip will be weaned down 3. Oral antihypertensives 4. Librium and banana bag 5. Haldol as needed 6. Gi DVT prophylaxis Discharge Plan: Home Plan to discharge in: Greater than 2 days - Advance Directives Does patient have a Living Will: No Does patient have a Durable POA for Healthcare: Yes - Code Status/Comfort Care Code Status Assessed: Yes Code Status: Full Code Critical Care: No Time Spent Managing PTS Care (In Minutes): 45
--- NOTE | 2022-10-30 21:49 | P.PN ---
Date of Service: 10/30/22 Subjective Patient is feeling much better. Clinical symptoms have improved. Will transfer out of the ICU onto the floor. Physical Examination - Vital Signs reviewed - Physical Exam General: Alert, In no apparent distress, Oriented x3 Respiratory: Clear to auscultation bilaterally, Normal air movement Cardiovascular: Regular rate/rhythm, Normal S1 S2, No murmurs Gastrointestinal: Normal bowel sounds, Soft and benign, Non-distended, No tenderness Musculoskeletal: No clubbing, No swelling, No tenderness Neurological: Upper extremity tremors Assessment & Plan - Problems (Diagnosis) (1) Hypertensive emergency Current Visit: Yes Status: Acute (2) ARIEL (acute kidney injury) Current Visit: No Status: Acute (3) Alcohol abuse Current Visit: No Status: Acute (4) Alcohol withdrawal delirium Current Visit: No Status: Acute - Plan Continue with plan of care as mentioned below: 1. Continue with antihypertensives 2. Nicardipine drip will be weaned down 3. Oral antihypertensives 4. Librium and banana bag 5. Haldol as needed 6. Gi DVT prophylaxis Discharge Plan: Home Plan to discharge in: Greater than 2 days - Advance Directives Does patient have a Living Will: No Does patient have a Durable POA for Healthcare: Yes - Code Status/Comfort Care Code Status Assessed: Yes Code Status: Full Code Critical Care: No Time Spent Managing PTS Care (In Minutes): 25
[2022-10-30] MEDS: TEMAZEPAM 15 MG CAP PO PRN (22:29)
[2022-10-31] MEDS: chlordiazePOXIDE HCl 5 MG CAP PO SCH ×5 (01:01→23:40)
[2022-10-31] MEDS: PANTOPRAZOLE 40MG TABLET PO SCH (06:29)
[2022-10-31] MEDS: METOPROLOL TAR 25 MG TAB PO SCH ×2 (06:30→17:56)
[2022-10-31 07:07] LABS: Albumin 3.3 g/dL (3.4-5.0); Bilirubin Total 1.1 mg/dL (0.2-1.0); Potassium 4.1 mEq/L (3.5-5.1); Protein, Total 7.1 g/dL (6.4-8.2)
[2022-10-31] MEDS: FOLIC ACID 1 MG, MULTIVITAMINS INJ 10 ML, THIAMINE HCL 100 MG in NA CHLORIDE 0.9% 1,000 ML IV SCH (08:53)
[2022-10-31] MEDS: DULOXETINE 30 MG CAP PO SCH ×2 (08:54→20:05)
[2022-10-31] MEDS: MORPHINE 2 MG/ML SYR IV PRN ×2 (12:27→21:49)
[2022-10-31] MEDS: TAMSULOSIN 0.4 MG SR CAP PO SCH (20:04)
[2022-10-31] MEDS: TEMAZEPAM 15 MG CAP PO PRN (21:49)
--- NOTE | 2022-11-01 05:54 | P.PN ---
Date of Service: 10/31/22 Subjective Patient is doing well with no new complaints; working with PT; tremors improved; plan to DC in the am Physical Examination - Vital Signs reviewed - Physical Exam General: Alert, In no apparent distress, Oriented x3 Respiratory: Clear to auscultation bilaterally, Normal air movement Cardiovascular: Regular rate/rhythm, Normal S1 S2, No murmurs Gastrointestinal: Normal bowel sounds, Soft and benign, Non-distended, No tenderness Musculoskeletal: No clubbing, No swelling, No tenderness Neurological: Upper extremity tremors Assessment & Plan - Problems (Diagnosis) (1) Hypertensive emergency Current Visit: Yes Status: Acute (2) ARIEL (acute kidney injury) Current Visit: No Status: Acute (3) Alcohol abuse Current Visit: No Status: Acute (4) Alcohol withdrawal delirium Current Visit: No Status: Acute - Plan Continue with plan of care as mentioned below: 1. Continue with antihypertensives 2. Nicardipine drip will be weaned down 3. Oral antihypertensives 4. Librium and banana bag 5. Haldol as needed 6. Gi DVT prophylaxis Discharge Plan: Home Plan to discharge in: Greater than 2 days - Advance Directives Does patient have a Living Will: No Does patient have a Durable POA for Healthcare: Yes - Code Status/Comfort Care Code Status Assessed: Yes Code Status: Full Code Critical Care: No Time Spent Managing PTS Care (In Minutes): 25
--- NOTE | 2022-11-01 05:58 | P.DS ---
Discharge Date: 11/01/22 Disposition: DC HOME/HOME HEALTH CARE Discharge Condition: GOOD Reason for Admission: Hypertensive emergency; alcohol intoxication - Problems (1) Hypertensive emergency Current Visit: Yes Status: Acute (2) ARIEL (acute kidney injury) Current Visit: No Status: Acute (3) Alcohol abuse Current Visit: No Status: Acute (4) Alcohol withdrawal delirium Current Visit: No Status: Acute Brief History of Present Illness: patient is a 67-year-old gentleman came to the hospital with uncontrolled blood pressure. Patient is the alcoholic and he had been drinking regularly. He appears to have stopped a couple of days ago and appeared to be goal to withdrawal with increased tremors. A further history patient states he has essential tremors of the upper extremities. He was admitted to the hospital for further treatment of his hypertensive emergency. Blood pressure was 220/140s. He is started on a nicardipine drip. Wean patient down gradually biceps 25% of his mean arterial pressures. Hopefully we can switch him over to oral antihypertensives in the morning. Hospital Course: patient has done well during hospitalization. Patient's clinical symptoms are improved. Patient has essential tremors are better. No difficulty with delirium tremens. Blood pressure is much better control. At this time, patient is stable for discharge with outpatient follow-up with PCP and Cardiology. As well as Neurology. Return to the emergency room if symptoms worsen. At this time, patient is stable for discharge. Tapering dose of Librium and patient is not to drink alcohol while on Librium. Vital Signs/Physical Exam: Temp Pulse Resp BP Pulse Ox 97.9 F 70 18 118/62 99 11/01/22 04:00 11/01/22 04:00 11/01/22 04:00 11/01/22 04:00 11/01/22 04:00 General: Alert, In no apparent distress, Oriented x3 Laboratory Data at Discharge: WBC 5.30 thou/uL (4.3-10.9) 10/30/22 04:33 Hgb 12.8 g/dL (13.6-17.9) L 10/30/22 04:33 Hct 37.1 % (39.6-49.0) L 10/30/22 04:33 Plt Count 83 thou/uL (152-406) L D 10/30/22 04:33 PT 11.6 SECONDS (9.5-12.5) 10/29/22 13:45 INR 1.05 10/29/22 13:45 Sodium 131 mEq/L (136-145) L D 10/31/22 06:43 Potassium 4.1 mEq/L (3.5-5.1) D 10/31/22 06:43 BUN 18 mg/dL (7-18) 10/31/22 06:43 Creatinine 0.82 mg/dL (0.70-1.30) 10/31/22 06:43 Glucose 123 mg/dL (74-106) H 10/31/22 06:43 Phosphorus 2.7 mg/dL (2.5-4.9) 10/30/22 04:33 Magnesium 2.2 mg/dL (1.6-2.4) 10/30/22 04:33 Total Bilirubin 1.1 mg/dL (0.2-1.0) H 10/31/22 06:43 AST 75 U/L (15-37) H 10/31/22 06:43 ALT 54 U/L (16-61) 10/31/22 06:43 Alkaline Phosphatase 92 U/L (45-117) 10/31/22 06:43 Lipase 306 U/L (13-75) H 10/29/22 13:45 Home Medications: Aspirin [Tanya Chewable Aspirin] 81 mg PO DAILY 10/29/22 Atorvastatin Calcium 20 mg PO DAILY 10/29/22 Duloxetine HCl 60 mg PO BID 10/29/22 Eszopiclone [Lunesta] 2 mg PO BEDTIME 10/29/22 Lactulose 10 g PO BID 10/29/22 Magnesium Oxide [Magnesium] 400 mg PO DAILY 10/29/22 Metoprolol Tartrate [Lopressor*] 25 mg PO BID 10/29/22 Multivitamin 1 tab PO DAILY 10/29/22 Omeprazole [Prilosec] 40 mg PO DAILY 10/29/22 Tamsulosin [Flomax*] 0.8 mg PO BEDTIME 10/29/22 Vitamin D3/Vitamin K2 (Mk4) [K2 Plus D3 Tablet] 1 tab PO DAILY 10/29/22 Physician Discharge Instructions: OK TO DC IV AND DC HOME FOLLOW-UP WITH PRIMARY CARE PROVIDER IN 1-2 WEEKS FOLLOW-UP WITH NEUROLOGY IN 1-2 WEEKS FOLLOW-UP WITH CARDIOLOGY IN 1-2 WEEKS RETURN TO THE ER IF symptoms worsen CALL DR. BROWN AT [phone] IF ANY QUESTIONS REGARDING HOSPITAL STAY. PLEASE CALL THE FLOOR AT [phone] IF ANY MEDICATION OR NURSING QUESTIONS. Diet: AHA Activity: Fall precautions Followup: NONE,NONE [Primary Care Provider] - Time spent managing pt's care (in minutes): 35
[2022-11-01] MEDS: METOPROLOL TAR 25 MG TAB PO SCH (06:14)
[2022-11-01] MEDS: chlordiazePOXIDE HCl 5 MG CAP PO SCH (06:14)
[2022-11-01] MEDS: PANTOPRAZOLE 40MG TABLET PO SCH (06:14)
[2022-11-01 06:16] VITALS: BP 107/65
[2022-11-01] MEDS: DULOXETINE 30 MG CAP PO SCH (08:34)
[2022-11-01] MEDS: FOLIC ACID 1 MG, MULTIVITAMINS INJ 10 ML, THIAMINE HCL 100 MG in NA CHLORIDE 0.9% 1,000 ML IV SCH (09:00)
[2022-11-01 09:33] VITALS: TEMP 98.4
== END 2022-11-01 10:22 | disposition home health service (06) | DRG 305 ==
LOC: ER 13:21 → ERHOLD 16:18 → 3RD-ICU 17:33 → 4TH 11-01 09:36
PROVIDERS: ADMIT Hospitalist; ATTEND Hospitalist
DX: I16.1 Hypertensive emergency (principal); F10.231 Alcohol dependence with withdrawal delirium; N17.9 Acute kidney failure, unspecified; I10 Essential (primary) hypertension; E87.6 Hypokalemia; G25.0 Essential tremor; E83.42 Hypomagnesemia; K21.9 Gastro-esophageal reflux disease without esophagitis; Z95.2 Presence of prosthetic heart valve; Z79.82 Long term (current) use of aspirin; Z79.899 Other long term (current) drug therapy; Z98.52 Vasectomy status; Y90.0 Blood alcohol level of less than 20 mg/100 ml
CPT/HCPCS: 36415; 51702; 71045; 71250; 74176; 76705; 80048; 80053; 80076; 81001; 83605; 83690; 83735; 83880; 84100; 84484; 85025; 85610; 87040; 87804; 87811; 93005; 96365; 96367; 96375; 97116; 97161; 97530; 99285; C9113; G0480; J0696; J2270; J2405; J2930; J3411; J3475; J3480; J7030

== ENCOUNTER 2023-02-28 14:46 | Emergency (ER) | payer OTHER ==
--- OUTSIDE RECORDS SUMMARY | 2023-02-28 14:55 | XMS REPORT | Continuity of Care Document ---
:1955 Author Organization [facility] t Address [address] [facility]. [address] [place] [address] Care Team Providers Name Role Phone Rayna Crockett MD, William Primary Care Physician [phone] SEBASTIÁN MAST Attending Clinician Unavailable SEBASTIÁN MAST Attending Clinician Unavailable Shaun Way Attending Clinician Unavailable DAVID MURPHY Attending Clinician Unavailable BENNY PALENCIA Attending Clinician Unavailable Benny Ruiz Attending Clinician Sebastián Mast MD Attending Clinician Doctor Unassigned, [place] Attending Clinician Unavailable Wellington Mcrae PTA Attending [...] Clinician Unavailable SEBASTIÁN MAST Admitting Clinician Unavailable SEBASTIÁN MAST Admitting Clinician Unavailable DAVID MURPHY Admitting Clinician Unavailable BRINDA TAN Admitting Clinician Unavailable Renée Mustafa MD Admitting Clinician LENCHO DELGADO Admitting Clinician Unavailable Payers Payer Name Policy Type Policy Number Effective Date Expiration Date Amanda koo AETNA MANAGED [id number] 2022 MEDICARE 00:00:00 PPO-PASQUALE MEDICARE PART A [id number] 2020 2024 AND B 00:00:00 00:00:00 AETNA O [id number] 00:00:00 AETNA O POS [id number] 1704-01-01 QPOS 00:00:00 AETNA 53 [id number] [facility] MEDICARE MB [id number] [facility] - [facility] MEDICARE MB [id number] [facility] - [facility] MEDICARE MB [id number] [facility] - [facility] MEDICARE MB [id number] [facility] - [facility] MEDICARE MB [id number] [facility] - [facility] MEDICARE MB [id number] [facility] - [facility] MEDICARE MB [id number] [facility] - [facility] MEDICARE MB [id number] [facility] - [facility] MEDICARE MB [id number] [facility] - [facility] MEDICARE MB [id number] [facility] - [facility] MEDICARE MB [id number] [facility] - [facility] MEDICARE MB [id number] [facility] - [facility] MEDICARE MB [id number] [facility] Problems Condition Condition Condition Status Onset Resolution [...] Added automatic ally from request for surgery [id number] Obesity Obesity Disease Active 2019-06 Univers (BMI (BMI 2-11 ity of 30-39.9) 30-39.9) 00:00: [address] Branch Alcohol Alcohol Disease Active 2019-06 Univers withdrawal withdrawal 2-10 it y of 00:00: [address] s/p s/p Disease Active 2018-[address] Bioprosthe Bioprosthe Rosie kes tic AVR by tic AVR by 00:00: Me amish [address] 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 Family History Family Member Diagnosis Comments Start Date Stop Date Source Natural father Heart attack [facility] Natural mother Cancer [facility] Social History Social Habit Start Date Stop Date Quantity Comments Source Gender identity [facility] Sexual orientation [facility] History of Tobacco [facility] - Use [facility] History SDOH [facility] Alcohol Std Drinks [facility] History SDOH [facility] Alcohol Binge Medical Laurie ter Exposure to 2022-09-18 2022-09-28 Not sure University of SARS-CoV-2 (event) 00:00:00 15:16:00 [facility] Tobacco use and 2022-02-16 2022-02-16 Former smokeless Uni versity of exposure 00:00:00 00:00:00 [facility] [place] History of Social 2022-01-27 2022-01-27 Univers ity of function 00:00:00 00:00:00 [facility] Alcohol intake 2021-05-12 2021-05-12 [facility]er [facility] 00:[facility] 00:00:00 of alcohol [facility] (finding) History SDOH Social 2020-05-22 2020-05-22 2 Unive rsity of Connections Phone 00:00:00 00:00:00 [place] M edical Branch History SDOH Social 2020-05-22 2020-05-22 98 Unive rsity of Connections Get 00:00:00 00:00:00 [place] Med ical Together Branch History SDOH Social 2020-05-22 2020-05-22 98 Unive rsity of Connections Uatsdin 00:00:00 00:00:00 [place] [facility] History SDOH [...] University o f Transport Non-Med 00:00:00 00:00:00 [place] M edical Branch Alcohol Comment 2019-04-10 2019-04-[address] [facility] 00:00[facility] 00:[facility]:00 [facility] Center History SDOH 2019-04-04 2019-04-[address] [facility] Alcohol Frequency 00:00:00 00:00:00 [facility] Sex Ass[birth year] Religious 00:00:00 00:00:00 Hospital Smoking Status Start Date Stop Date Source Tobacco smoking consumption Meth [facility] unknown Never smoked tobacco [facility] Medications Ordered Filled Start Stop Current Ordering Indication Dosage Frequency Signature Comments Components Source Medication Medication Date Date Medication? Clinician (SIG) Name Name oxyCODONE-a 2022- Yes 2{tbl} Uni vers cetaminophe 02-27 ity of n 05:00: 16:59 [place] (PERCOCET) 00 :00 Medical 5-325 mg Branch per tablet 2 tablet tranexamic 2022- Yes 1000mg Univ ers acid 02-27 ity of (CYKLOKAPRO 05:00: 16:59 [place] N) 1,000 mg 00 :00 Medical in NaCl Branch 0.9% (NS) 250 mL piggyback oxyCODONE-a 2022- No 2{tbl} Uni vers cetaminophe 09-26 ity of n 05:00: 16:59 [place] (PERCOCET) 00 :00 Medical 5-325 mg Branch per tablet 2 tablet tranexamic 2022- No 1000mg Univ ers acid 09-26 ity of (CYKLOKAPRO 05:00: 16:59 [place] N) 1,000 mg 00 :00 Medical in NaCl Branch 0.9% (NS) 250 mL piggyback aspirin 81 2020-06 Yes 81mg QD Take [address] MG EC 07-13 by mouth [facility]ukes tablet 11:38: daily. [place] [address] Center temazepam 2020-06 Yes 15mg Take 15 [...] Tamsulosin HCl 0.4 MG HCl 0.4 MG 01-29 le} HCl 0.4 MG 00:00: 00:00 00 :00 Tamsulosin Tamsulosin 2021- No 1{capsu QD Tamsulosin HCl 0.4 MG HCl 0.4 MG 01-29- le} HCl 0.4 MG 00:00: 00:00 00 :00 Tamsulosin Tamsulosin 2021- No 1{capsu QD Tamsulosin HCl 0.4 MG HCl 0.4 MG 01-29 le} HCl 0.4 MG 00:00: 00:00 00 [...] MG HCl 0.4 MG 8-20 02-15 le} 00:00: 00:00 00 :00 Tamsulosin Tamsulosin 2- No 1{capsu QD Tamsulosin HCl 0.4 MG HCl 0.4 MG 8-20 02-15 le} HCl 0.4 MG 00:00: 00:00 00 :00 Tamsulosin Tamsulosin 0 1- No 1{capsu QD Tamsulosin HCl 0.4 [...] :00 Tamsulosin Tamsulosin 2020- No 1{capsu QD HCl 0.4 MG HCl 0.4 MG 6-17 12-13 le} 00:00: 00:00 00 :00 Tamsulosin Tamsulosin 2020- No 1{capsu QD Tamsulosin HCl 0.4 MG HCl 0.4 MG 6-17 12-13 le} HCl 0.4 MG 00:00: 00:00 00 :00 Tamsulosin Tamsulosin 2020- No 1{capsu QD Tamsulosin HCl 0.4 MG HCl 0.4 MG 6-17 12-13 le} HCl 0.4 MG 00:00: 00:00 00 :00 Tamsulosin Tamsulosin 2020-0 1- No 1{capsu QD Tamsulosin HCl 0.4 MG HCl 0.4 MG -17 12-13 le} HCl 0.4 MG 00:00: 00:00 [...] 3-11 t_as_ne 00:00: eded} 00 traMADol traMADol 1-0 No 1{table traMADol HCl 50 MG HCl 50 MG 3-11 t_as_ne HCl 50 MG 00:00: eded} 00 traMADol traMADol 1-0 No 1{table traMADol HCl 50 MG HCl 50 MG 3-11 t_as_ne HCl 50 MG 00:00: eded} 00 Bupivicaine Bupivicaine 2020-0 No [facility] Fitzhugh 3-11 Spirit 00:00: - [facility] Kenalog Kenalog 2020-0 No 40mg Common (Triamcinol (Triamcinol 3-11 S pirit one) one) 00:00: - [facility] traMADol traMADol 2020-0 No 1{table traMADol HCl 50 MG HCl 50 MG 3-11 t_as_ne HCl 50 MG 00:00: eded} 00 Bupivicaine Bupivicaine 2020-0 No 2.5mg Common Fitzhugh Fitzhugh 3-11 Spirit 00:00: - [facility] 00 [facility] Kenalog Kenalog 0 No 40mg Common (Triamcinol (Triamcinol 3-11 S pirit one) one) 00:00: - [facility] traMADol traMADol 2020-0 No 1{table traMADol HCl 50 MG HCl 50 MG 3-11 t_as_ne HCl 50 MG 00:00: eded} 00 Bupivicaine Bupivicaine 0 No 2.5mg Common Fitzhugh Fitzhugh 3-11 Spirit 00:00: - [facility] 00 [facility] Kenalog Kenalog 0 No 40mg Common (Triamcinol (Triamcinol 3-11 S pirit one) one) 00:00: - [facility] traMADol traMADol 2020-0 No 1{table traMADol HCl 50 MG HCl 50 MG 3-11 t_as_ne HCl 50 MG 00:00: eded} 00 Bupivicaine Bupivicaine 2020-0 No 2.5mg [facility] Fitzhugh Fitzhugh 3-11 Spirit 00:00: - [facility] 00 [facility] Kenalog Kenalog 2020-0 No 40mg Common (Triamcinol (Triamcinol 3-11 S pirit one) one) 00:00: - [facility] traMADol traMADol 2020-0 No 1{table traMADol HCl 50 MG HCl 50 MG 3-11 t_as_ne HCl 50 MG 00:00: eded} 00 traMADol traMADol 2020-0 No 1{table traMADol HCl 50 MG HCl 50 MG 3-11 t_as_ne HCl 50 MG 00:00: eded} 00 traMADol traMADol 2020-0 No 1{table traMADol HCl 50 MG HCl 50 MG 3-11 t_as_ne HCl 50 MG 00:00: eded} 00 thiamine 2020-1 Yes [id number] 100mg Take 1 U nivers 100 mg 2-12 tablet by ity of tablet 00:00: mouth [place] 00 daily. Medical Branch thiamine 2020-1 Yes [id number] 100mg Take 1 U nivers 100 mg 2-12 tablet by ity of tablet 00:00: mouth [place] 00 daily. Medical Branch thiamine 2020-1 Yes [id number] 100mg Take 1 U nivers 100 mg 2-12 tablet by ity of tablet 00:00: mouth [place] 00 daily. Medical Branch thiamine 2020-1 Yes [id number] 100mg Take 1 U nivers 100 mg 2-12 tablet by ity of tablet 00:00: mouth [place] 00 daily. Medical Branch thiamine 2020-1 Yes [id number] 100mg Take 1 U nivers 100 mg 2-12 tablet by ity of tablet 00:00: mouth [place] 00 daily. Medical Branch thiamine 2020-1 Yes [id number] 100mg Take 1 U nivers 100 mg 2-12 tablet by ity of tablet 00:00: mouth [place] 00 daily. Medical Branch thiamine 2020-1 Yes [id number] 100mg Take 1 U nivers 100 mg 2-12 tablet by ity of tablet 00:00: mouth [place] 00 daily. Medical Branch thiamine 2020-1 Yes [id number] 100mg Take 1 U nivers 100 mg 2-12 tablet by ity of tablet 00:00: mouth [place] 00 daily. Medical Branch thiamine 2020-1 Yes [id number] 100mg Take 1 U nivers 100 mg 2-12 tablet by ity of tablet 00:00: mouth [place] 00 daily. Medical Branch thiamine 2020-1 Yes [id number] 100mg Take 1 U nivers 100 mg 2-12 tablet by ity of tablet 00:00: mouth [place] 00 daily. [facility] thiamine 2020-1 Yes [id number] 100mg Take 1 U nivers 100 mg 2-12 tablet by ity of tablet 00:00: mouth [place] 00 daily. [facility] thiamine 2020-1 Yes [id number] 100mg Take 1 U nivers 100 mg 2-12 tablet by ity of tablet 00:00: mouth [place] 00 daily. [facility] thiamine 2020-1 Yes [id number] 100mg Take 1 U nivers 100 mg 2-12 tablet by ity of tablet 00:00: mouth [place] 00 daily. [facility] thiamine 2020-1 Yes [id number] 100mg Take 1 U nivers 100 mg 2-12 tablet by ity of tablet 00:00: mouth [place] 00 daily. [facility] thiamine 2020-1 Yes [id number] 100mg Take 1 U nivers 100 mg 2-12 tablet by ity of tablet 00:00: mouth [place] 00 daily. [facility] thiamine 2020-1 Yes [id number] 100mg Take 1 U nivers 100 mg 2-12 tablet by ity of tablet 00:00: mouth [place] 00 daily. [facility] thiamine 2020-1 Yes [id number] 100mg Take 1 U nivers 100 mg 2-12 tablet by ity of tablet 00:00: mouth [place] 00 daily. [facility] thiamine 2020-1 Yes [id number] 100mg Take 1 U nivers 100 mg 2-12 tablet by ity of tablet 00:00: mouth [place] 00 daily. [facility] thiamine 2020-1 Yes [id number] 100mg Take 1 U nivers 100 mg 2-12 tablet by ity of tablet 00:00: mouth [place] 00 daily. [facility] thiamine 2020-1 Yes [id number] 100mg Take 1 U nivers 100 mg 2-12 tablet by ity of tablet 00:00: mouth [place] 00 daily. [facility] thiamine 2020-1 Yes [id number] 100mg Take 1 U nivers 100 mg 2-12 tablet by ity of tablet 00:00: mouth [place] 00 daily. [facility] thiamine 2020-1 Yes [id number] 100mg Take 1 U nivers 100 mg 2-12 tablet by ity of tablet 00:00: mouth [place] 00 daily. [facility] thiamine 2020-1 Yes [id number] 100mg Take 1 U nivers 100 mg 2-12 tablet by ity of tablet 00:00: mouth [place] 00 daily. [facility] thiamine 2020-1 Yes [id number] 100mg Take 1 U nivers 100 mg 2-12 tablet by ity of tablet 00:00: mouth [place] 00 daily. [facility] thiamine 2020-1 Yes [id number] 100mg Take 1 U nivers 100 mg 2-12 tablet by ity of tablet 00:00: mouth [place] 00 daily. [facility] thiamine 2020-1 Yes [id number] 100mg Take 1 U nivers 100 mg 2-12 tablet by ity of tablet 00:00: mouth [place] 00 daily. Medical Branch thiamine 2019- Yes [id number] 100mg Take 1 U nivers 100 mg 2-12 tablet by ity of tablet 00:00: mouth [place] 00 daily. Medical Branch thiamine 2019- Yes [id number] 100mg Take 1 U nivers 100 mg 2-12 tablet by ity of tablet 00:00: mouth [place] 00 daily. Medical Branch thiamine 2019- Yes [id number] 100mg Take 1 U nivers 100 mg 2-12 tablet by ity of tablet 00:00: mouth [place] 00 daily. Medical Branch thiamine 2019- Yes [id number] 100mg Take 1 U nivers 100 mg 2-12 tablet by ity of tablet 00:00: mouth [place] 00 daily. Medical Branch thiamine 2019-06 Yes [id number] 100mg Take 1 U nivers 100 mg 2-12 tablet by ity of tablet 00:00: mouth [place] 00 daily. Medical Branch thiamine 2019-06 Yes [id number] 100mg Take 1 U nivers 100 mg 2-12 tablet by ity of tablet 00:00: mouth [place] 00 daily. Medical Branch thiamine 2019-06 Yes [id number] 100mg Take 1 U nivers 100 mg 2-12 tablet by ity of tablet 00:00: mouth [place] 00 daily. Medical Branch atorvastati 2019-06 Yes 20mg Take 20 mg Univers n 20 mg 2-11 by mouth ity of tablet 18:11: at [place] [address] bedtime. Medical Branch acetylcyst/ 2019- Yes .314mg Take 0.314 Univers rudcoyX89/l 2-11 mg by ity of evomefol 18:11: mouth. [place] (CEREFOLIN 31 Medical NAC ORAL) Branch aspirin 2019- Yes 81mg Take 81 mg Univ ers (ASPIR-LOW) 2-11 by mouth ity of 81 mg EC 18:11: daily. [place] tablet 31 Medical Branch mirtazapine 2019- Yes 15mg Take 15 mg Univers 15 mg 2-11 by mouth ity of tablet 18:11: at [place] [address] bedtime. Medical Branch metoprolol 2019- Yes 12.5mg Take 12.5 Univers tartrate 25 2-11 mg by ity of mg tablet 18:11: mouth 2 [place] 31 (two) Medical times Branch daily. atorvastati 2019- Yes 20mg Take 20 mg Univers n 20 mg 2-11 by mouth ity of tablet 18:11: at [place] [address] bedtime. Medical Branch acetylcyst/ 2019-06 Yes .314mg Take 0.314 Univers onsvsjF63/l 2-11 mg by ity of evomefol 18:11: mouth. [place] ([place] [address] Medical NAC ORAL) Branch aspirin 2019-06 Yes 81mg Take 81 mg Univ ers (ASPIR-LOW) 2-11 by mouth ity of 81 mg EC 18:11: daily. [place] [address] Medical Branch mirtazapine 2019-06 Yes 15mg Take 15 mg Univers 15 mg 2-11 by mouth ity of tablet 18:11: at [place] [address] bedtime. Medical Branch metoprolol 2019-06 Yes 12.5mg Take 12.5 Univers tartrate 25 2-11 mg by ity of mg tablet 18:11: mouth 2 [place] [address] (two) Medical times [place] daily. atorvastati 2019-06 Yes 20mg Take 20 mg Univers n 20 mg 2-11 by mouth ity of tablet 18:11: at [place] [address] bedtime. Medical Branch acetylcyst/ 2019-06 Yes .314mg Take 0.314 Univers bvcoxcY30/l 2-11 mg by ity of evomefol 18:11: mouth. [place] ([place] [address] Medical NAC ORAL) Branch aspirin 2019-06 Yes 81mg Take 81 mg Univ ers (ASPIR-LOW) 2-11 by mouth ity of 81 mg EC 18:11: daily. [place] [address] Medical Branch mirtazapine 2019-06 Yes 15mg Take 15 mg Univers 15 mg 2-11 by mouth ity of tablet 18:11: at [place] [address] bedtime. Medical Branch metoprolol 2019-06 Yes 12.5mg Take 12.5 Univers tartrate 25 2-11 mg by ity of mg tablet 18:11: mouth 2 [place] [address] (two) Medical times [place] daily. atorvastati 2019-06 Yes 20mg Take 20 mg Univers n 20 mg 2-11 by mouth ity of tablet 18:11: at [place] [address] bedtime. Medical Branch acetylcyst/ 2019-06 Yes .314mg Take 0.314 Univers vdxrrdP96/l 2-11 mg by ity of evomefol 18:11: mouth. [place] ([address] NAC ORAL) Branch aspirin 2019-06 Yes 81mg Take 81 mg Univ ers (ASPIR-LOW) 2-11 by mouth ity of 81 mg EC 18:11: daily. [place] [address] Medical Branch mirtazapine 2019-06 Yes 15mg Take 15 mg Univers 15 mg 2-11 by mouth ity of tablet 18:11: at [place] [address] bedtime. Medical Branch metoprolol 2019-06 Yes 12.5mg Take 12.5 Univers tartrate 25 2-11 mg by ity of mg tablet 18:11: mouth 2 [place] [address] (two) Medical times Branch daily. atorvastati 2019-06 Yes 20mg Take 20 mg Univers n 20 mg 2-11 by mouth ity of tablet 18:11: at [place] [address] bedtime. Medical Branch acetylcyst/ 2019-06 Yes .314mg Take 0.314 Univers rcqgacP29/l 2-11 mg by ity of evomefol 18:11: mouth. [place] ([place] [address] Medical NAC ORAL) Branch aspirin 2019-06 Yes 81mg Take 81 mg Univ ers (ASPIR-LOW) 2-11 by mouth ity of 81 mg EC 18:11: daily. [place] [address] Medical Branch mirtazapine 2019-06 Yes 15mg Take 15 mg Univers 15 mg 2-11 by mouth ity of tablet 18:11: at [place] [address] bedtime. Medical Branch metoprolol 2019-06 Yes 12.5mg Take 12.5 Univers tartrate 25 2-11 mg by ity of mg tablet 18:11: mouth 2 [place] [address] (two) Medical times Branch daily. atorvastati 2019-06 Yes 20mg Take 20 mg Univers n 20 mg 2-11 by mouth ity of tablet 18:11: at [place] [address] bedtime. Medical Branch acetylcyst/ 2019-06 Yes .314mg Take 0.314 Univers zeyfzjI72/l 2-11 mg by ity of evomefol 18:11: mouth. [place] ([address] NAC ORAL) Branch aspirin 2019-06 Yes 81mg Take 81 mg Univ ers (ASPIR-LOW) 2-11 by mouth ity of 81 mg EC 18:11: daily. [place] [address] Medical Branch mirtazapine 2019-06 Yes 15mg Take 15 mg Univers 15 mg 2-11 by mouth ity of tablet 18:11: at [place] [address] bedtime. Medical Branch metoprolol 2019-06 Yes 12.5mg Take 12.5 Univers tartrate 25 2-11 mg by ity of mg tablet 18:11: mouth 2 [place] [address] ([facility]) Medical times [place] daily. atorvastati 2019-06 Yes 20mg Take 20 mg Univers n 20 mg 2-11 by mouth ity of tablet 18:11: at [place] [address] bedtime. Medical Branch acetylcyst/ 2019-06 Yes .314mg Take 0.314 Univers vozncpZ79/l 2-11 mg by ity of evomefol 18:11: mouth. [place] ([address] NAC ORAL) Branch aspirin 2019-06 Yes 81mg Take 81 mg Univ ers (ASPIR-LOW) 2-11 by mouth ity of 81 mg EC 18:11: daily. [place] [address] Medical Branch mirtazapine 2019-06 Yes 15mg Take 15 mg Univers 15 mg 2-11 by mouth ity of tablet 18:11: at [place] [address] bedtime. Medical Branch metoprolol 2019-06 Yes 12.5mg Take 12.5 Univers tartrate 25 2-11 mg by ity of mg tablet 18:11: mouth 2 [place] [address] ([facility]) [facility] daily. atorvastati 2019-06 Yes 20mg Take 20 mg Univers n 20 mg 2-11 by mouth ity of tablet 18:11: at [place] [address] bedtime. Medical Branch acetylcyst/ 2019-06 Yes .314mg Take 0.314 Univers fpvrmcM61/l 2-11 mg by ity of evomefol 18:11: mouth. [place] ([address] NAC ORAL) Branch aspirin 2019-06 Yes 81mg Take 81 mg Univ ers (ASPIR-LOW) 2-11 by mouth ity of 81 mg EC 18:11: daily. [place] [address] Medical Branch mirtazapine 2019-06 Yes 15mg Take 15 mg Univers 15 mg 2-11 by mouth ity of tablet 18:11: at [place] [address] bedtime. Medical Branch metoprolol 2019-06 Yes 12.5mg Take 12.5 Univers tartrate 25 2-11 mg by ity of mg tablet 18:11: mouth 2 [place] [address] ([facility]) Medical times [place] daily. atorvastati 2019-06 Yes 20mg Take 20 mg Univers n 20 mg 2-11 by mouth ity of tablet 18:11: at [place] [address] bedtime. Medical Branch acetylcyst/ 2019-06 Yes .314mg Take 0.314 Univers ecpfrpW09/l 2-11 mg by ity of evomefol 18:11: mouth. [place] ([address] NAC ORAL) Branch aspirin 2019-06 Yes 81mg Take 81 mg Univ ers (ASPIR-LOW) 2-11 by mouth ity of 81 mg EC 18:11: daily. [place] [address] Medical Branch mirtazapine 2019-06 Yes 15mg Take 15 mg Univers 15 mg 2-11 by mouth ity of tablet 18:11: at [place] [address] bedtime. Medical Branch metoprolol 2019-06 Yes 12.5mg Take 12.5 Univers tartrate 25 2-11 mg by ity of mg tablet 18:11: mouth 2 [place] [address] (two) Medical times [place] daily. atorvastati 2019-06 Yes 20mg Take 20 mg Univers n 20 mg 2-11 by mouth ity of tablet 18:11: at [place] [address] bedtime. Medical Branch acetylcyst/ 2019-06 Yes .314mg Take 0.314 Univers xpikoxZ71/l 2-11 mg by ity of evomefol 18:11: mouth. [place] ([address] ORAL) Branch aspirin 2019-06 Yes 81mg Take 81 mg Univ ers (ASPIR-LOW) 2-11 by mouth ity of 81 mg EC 18:11: daily. [place] [address] Medical Branch mirtazapine 2019-06 Yes 15mg Take 15 mg Univers 15 mg 2-11 by mouth ity of tablet 18:11: at [place] [address] bedtime. Medical Branch metoprolol 2019-06 Yes 12.5mg Take 12.5 Univers tartrate 25 2-11 mg by ity of mg tablet 18:11: mouth 2 [place] [address] (two) Medical times [place] daily. atorvastati 2019-06 Yes 20mg Take 20 mg Univers n 20 mg 2-11 by mouth ity of tablet 18:11: at [place] [address] bedtime. Medical Branch acetylcyst/ 2019-06 Yes .314mg Take 0.314 Univers rffpbqR14/l 2-11 mg by ity of evomefol 18:11: mouth. [place] ([address] ORAL) Branch aspirin 2019-06 Yes 81mg Take 81 mg Univ ers (ASPIR-LOW) 2-11 by mouth ity of 81 mg EC 18:11: daily. [place] [address] Medical Branch mirtazapine 2019-06 Yes 15mg Take 15 mg Univers 15 mg 2-11 by mouth ity of tablet 18:11: at [place] [address] bedtime. Medical Branch metoprolol 2019-06 Yes 12.5mg Take 12.5 Univers tartrate 25 2-11 mg by ity of mg tablet 18:11: mouth 2 [place] [address] (two) Medical times [place] daily. atorvastati 2019-06 Yes 20mg Take 20 mg Univers n 20 mg 2-11 by mouth ity of tablet 18:11: at [place] [address] bedtime. Medical Branch acetylcyst/ 2019-06 Yes .314mg Take 0.314 Univers eicjztA20/l 2-11 mg by ity of evomefol 18:11: mouth. [place] ([place] [address] Medical NAC ORAL) Branch aspirin 2019-06 Yes 81mg Take 81 mg Univ ers (ASPIR-LOW) 2-11 by mouth ity of 81 mg EC 18:11: daily. [place] [address] Medical Branch mirtazapine 2019-06 Yes 15mg Take 15 mg Univers 15 mg 2-11 by mouth ity of tablet 18:11: at [place] [address] bedtime. Medical Branch metoprolol 2019-06 Yes 12.5mg Take 12.5 Univers tartrate 25 2-11 mg by ity of mg tablet 18:11: mouth 2 [place] [address] (two) Medical times [place] daily. atorvastati 2019-06 Yes 20mg Take 20 mg Univers n 20 mg 2-11 by mouth ity of tablet 18:11: at [place] [address] bedtime. Medical Branch acetylcyst/ 2019-06 Yes .314mg Take 0.314 Univers azwotpM19/l 2-11 mg by ity of evomefol 18:11: mouth. [place] ([place] [address] Medical NAC ORAL) Branch aspirin 2019-06 Yes 81mg Take 81 mg Univ ers (ASPIR-LOW) 2-11 by mouth ity of 81 mg EC 18:11: daily. [place] [address] Medical Branch mirtazapine 2019-06 Yes 15mg Take 15 mg [facility] 15 mg 2-11 by mouth ity of tablet 18:11: at [place] [address] bedtime. Medical Branch metoprolol 2019-06 Yes 12.5mg Take 12.5 [facility] tartrate 25 2-11 mg by ity of mg tablet 18:11: mouth 2 [place] [address] (two) Medical times [place] daily. atorvastati 2019-06 Yes 20mg Take 20 mg [facility] n 20 mg 2-11 by mouth ity of tablet 18:11: at [place] [address] bedtime. Medical Branch acetylcyst/ 2019-06 Yes .314mg Take 0.314 [facility] [id number]/l 2-11 mg by ity of evomefol 18:11: mouth. [place] ([place] [address] Medical NAC ORAL) Branch aspirin 2019-06 Yes 81mg Take 81 mg [facility] ers (ASPIR-LOW) 2-11 by mouth ity of 81 mg EC 18:11: daily. [place] [address] Medical Branch mirtazapine 2019-06 Yes 15mg Take 15 mg [facility] 15 mg 2-11 by mouth ity of tablet 18:11: at [place] [address] bedtime. Medical Branch metoprolol 2019-06 Yes 12.5mg Take 12.5 [facility] tartrate 25 2-11 mg by ity of mg tablet 18:11: mouth 2 [place] [address] (two) Medical times [place] daily. atorvastati 2019-06 Yes 20mg Take 20 mg [facility] n 20 mg 2-11 by mouth ity of tablet 18:11: at [place] [address] bedtime. Medical Branch acetylcyst/ 2019-06 Yes .314mg Take 0.314 [facility] [id number]/l 2-11 mg by ity of evomefol 18:11: mouth. [place] ([place] [address] Medical NAC ORAL) Branch aspirin 2019-06 Yes 81mg Take 81 mg [facility] ers (ASPIR-LOW) 2-11 by mouth ity of 81 mg EC 18:11: daily. [place] [address] Medical Branch mirtazapine 2019-06 Yes 15mg Take 15 mg [facility] 15 mg 2-11 by mouth ity of tablet 18:11: at [place] [address] bedtime. Medical Branch metoprolol 2019-06 Yes 12.5mg Take 12.5 [facility] tartrate 25 2-11 mg by ity of mg tablet 18:11: mouth 2 [place] [address] (two) Medical times [place] daily. atorvastati 2019-06 Yes 20mg Take 20 mg [facility] n 20 mg 2-11 by mouth ity of tablet 18:11: at [place] [address] bedtime. Medical Branch acetylcyst/ 2019-06 Yes .314mg Take 0.314 [facility] [id number]/l 2-11 mg by ity of evomefol 18:11: mouth. [place] ([address] NAC ORAL) Branch aspirin 2019-06 Yes 81mg Take 81 mg [facility] ers (ASPIR-LOW) 2-11 by mouth ity of 81 mg EC 18:11: daily. [place] [address] Medical Branch mirtazapine 2019-06 Yes 15mg Take 15 mg [facility] 15 mg 2-11 by mouth ity of tablet 18:11: at [place] [address] bedtime. Medical Branch metoprolol 2019-06 Yes 12.5mg Take 12.5 [facility] tartrate 25 2-11 mg by ity of mg tablet 18:11: mouth 2 [place] [address] (two) Medical times Branch daily. atorvastati 2019-06 Yes 20mg Take 20 mg [facility] n 20 mg 2-11 by mouth ity of tablet 18:11: at [place] [address] bedtime. Medical Branch acetylcyst/ 2019-06 Yes .314mg Take 0.314 [facility] [id number]/l 2-11 mg by ity of evomefol 18:11: mouth. [place] ([place] [address] Medical NAC ORAL) Branch aspirin 2019-06 Yes 81mg Take 81 mg [facility] ers (ASPIR-LOW) 2-11 by mouth ity of 81 mg EC 18:11: daily. [place] [address] Medical Branch mirtazapine 2019-06 Yes 15mg Take 15 mg [facility] 15 mg 2-11 by mouth ity of tablet 18:11: at [place] [address] bedtime. Medical Branch metoprolol 2019-06 Yes 12.5mg Take 12.5 [facility] tartrate 25 2-11 mg by ity of mg tablet 18:11: mouth 2 [place] [address] (two) Medical times [place] daily. atorvastati 2019-06 Yes 20mg Take 20 mg [facility] n 20 mg 2-11 by mouth ity of tablet 18:11: at [place] [address] bedtime. Medical Branch acetylcyst/ 2019-06 Yes .314mg Take 0.314 [facility] isylueZ73/l 2-11 mg by ity of evomefol 18:11: mouth. [place] [facility] Branch aspirin 2019-06 Yes 81mg Take 81 mg [facility] ers (ASPIR-LOW) 2-11 by mouth ity of 81 mg EC 18:11: daily. [place] [address] Medical Branch mirtazapine 2019-06 Yes 15mg Take 15 mg [facility] 15 mg 2-11 by mouth ity of tablet 18:11: at [place] [address] bedtime. Medical Branch metoprolol 2019-06 Yes 12.5mg Take 12.5 [facility] tartrate 25 2-11 mg by ity of mg tablet 18:11: mouth 2 [place] [address] (two) Medical times [place] daily. atorvastati 2019-06 Yes 20mg Take 20 mg [facility] n 20 mg 2-11 by mouth ity of tablet 18:11: at [place] [address] bedtime. Medical Branch acetylcyst/ 2019-06 Yes .314mg Take 0.314 [facility] ptermzU47/l 2-11 mg by ity of evomefol 18:11: mouth. [place] ([place] [address] Medical NAC ORAL) Branch aspirin 2019-06 Yes 81mg Take 81 mg [facility] ers (ASPIR-LOW) 2-11 by mouth ity of 81 mg EC 18:11: daily. [place] [address] Medical Branch mirtazapine 2019-06 Yes 15mg Take 15 mg [facility] 15 mg 2-11 by mouth ity of tablet 18:11: at [place] [address] bedtime. Medical Branch metoprolol 2019-06 Yes 12.5mg Take 12.5 [facility] tartrate 25 2-11 mg by ity of mg tablet 18:11: mouth 2 [place] [address] ([facility]) Medical times [place] daily. atorvastati 2019-06 Yes 20mg Take 20 mg [facility] n 20 mg 2-11 by mouth ity of tablet 18:11: at [place] [address] bedtime. Medical Branch acetylcyst/ 2019-06 Yes .314mg Take 0.314 [facility] [id number]/l 2-11 mg by ity of evomefol 18:11: mouth. [place] ([place] [address] Medical NAC ORAL) Branch aspirin 2019-06 Yes 81mg Take 81 mg [facility] ers (ASPIR-LOW) 2-11 by mouth ity of 81 mg EC 18:11: daily. [place] [address] Medical Branch mirtazapine 2019-06 Yes 15mg Take 15 mg [facility] 15 mg 2-11 by mouth ity of tablet 18:11: at [place] [address] bedtime. Medical Branch metoprolol 2019-06 Yes 12.5mg Take 12.5 [facility] tartrate 25 2-11 mg by ity of mg tablet 18:11: mouth 2 [place] [address] (two) Medical times [place] daily. atorvastati 2019-06 Yes 20mg Take 20 mg [facility] n 20 mg 2-11 by mouth ity of tablet 18:11: at [place] [address] bedtime. Medical Branch acetylcyst/ 2019-06 Yes .314mg Take 0.314 [facility] adkhcpZ09/l 2-11 mg by ity of evomefol 18:11: mouth. [place] ([place] [address] Medical NAC ORAL) Branch aspirin 2019-06 Yes 81mg Take 81 mg [facility] ers (ASPIR-LOW) 2-11 by mouth ity of 81 mg EC 18:11: daily. [place] [address] Medical Branch mirtazapine 2019-06 Yes 15mg Take 15 mg [facility] 15 mg 2-11 by mouth ity of tablet 18:11: at [place] [address] bedtime. Medical Branch metoprolol 2019-06 Yes 12.5mg Take 12.5 [facility] tartrate 25 2-11 mg by ity of mg tablet 18:11: mouth 2 [place] [address] (two) Medical times [place] daily. atorvastati 2019-06 Yes 20mg Take 20 mg [facility] n 20 mg 2-11 by mouth ity of tablet 18:11: at [place] [address] bedtime. Medical Branch acetylcyst/ 2019-06 Yes .314mg Take 0.314 [facility] imzsquP71/l 2-11 mg by ity of evomefol 18:11: mouth. [place] ([address] NAC ORAL) Branch aspirin 2019-06 Yes 81mg Take 81 mg [facility] ers (ASPIR-LOW) 2-11 by mouth ity of 81 mg EC 18:11: daily. [place] [address] Medical Branch mirtazapine 2019-06 Yes 15mg Take 15 mg [facility] 15 mg 2-11 by mouth ity of tablet 18:11: at [place] [address] bedtime. Medical Branch metoprolol 2019-06 Yes 12.5mg Take 12.5 [facility] tartrate 25 2-11 mg by ity of mg tablet 18:11: mouth 2 [place] [address] (two) Medical times [place] daily. atorvastati 2019-06 Yes 20mg Take 20 mg [facility] n 20 mg 2-11 by mouth ity of tablet 18:11: at [place] [address] bedtime. Medical Branch acetylcyst/ 2019-06 Yes .314mg Take 0.314 [facility] [id number]/l 2-11 mg by ity of evomefol 18:11: mouth. [place] ([address] NAC ORAL) Branch aspirin 2019-06 Yes 81mg Take 81 mg [facility] ers (ASPIR-LOW) 2-11 by mouth ity of 81 mg EC 18:11: daily. [place] [address] Medical Branch mirtazapine 2019-06 Yes 15mg Take 15 mg [facility] 15 mg 2-11 by mouth ity of tablet 18:11: at [place] [address] bedtime. Medical Branch metoprolol 2019-06 Yes 12.5mg Take 12.5 [facility] tartrate 25 2-11 mg by ity of mg tablet 18:11: mouth 2 [place] [address] (two) Medical times [place] daily. atorvastati 2019-06 Yes 20mg Take 20 mg [facility] n 20 mg 2-11 by mouth ity of tablet 18:11: at [place] [address] bedtime. Medical Branch acetylcyst/ 2019-06 Yes .314mg Take 0.314 [facility] ewhqzsH80/l 2-11 mg by ity of evomefol 18:11: mouth. [place] ([place] [address] Medical NAC ORAL) Branch aspirin 2019-06 Yes 81mg Take 81 mg [facility] ers (ASPIR-LOW) 2-11 by mouth ity of 81 mg EC 18:11: daily. [place] [address] Medical Branch mirtazapine 2019-06 Yes 15mg Take 15 mg [facility] 15 mg 2-11 by mouth ity of tablet 18:11: at [place] [address] bedtime. Medical Branch metoprolol 2019-06 Yes 12.5mg Take 12.5 [facility] tartrate 25 2-11 mg by ity of mg tablet 18:11: mouth 2 [place] [address] (two) Medical times [place] daily. atorvastati 2019-06 Yes 20mg Take 20 mg [facility] n 20 mg 2-11 by mouth ity of tablet 18:11: at [place] [address] bedtime. Medical Branch acetylcyst/ 2019-06 Yes .314mg Take 0.314 [facility] nunatgN20/l 2-11 mg by ity of evomefol 18:11: mouth. [place] [facility]) Branch aspirin 2019-06 Yes 81mg Take 81 mg [facility] ers (ASPIR-LOW) 2-11 by mouth ity of 81 mg EC 18:11: daily. [place] [address] Medical Branch mirtazapine 2019-06 Yes 15mg Take 15 mg [facility] 15 mg 2-11 by mouth ity of tablet 18:11: at [place] [address] bedtime. Medical Branch metoprolol 2019-06 Yes 12.5mg Take 12.5 [facility] tartrate 25 2-11 mg by ity of mg tablet 18:11: mouth 2 [place] [address] (two) Medical times [place] daily. atorvastati 2019-06 Yes 20mg Take 20 mg [facility] n 20 mg 2-11 by mouth ity of tablet 18:11: at [place] [address] bedtime. Medical Branch acetylcyst/ 2019-06 Yes .314mg Take 0.314 [facility] ncbzncQ95/l 2-11 mg by ity of evomefol 18:11: mouth. [place] ([place] [address] Medical NAC ORAL) Branch aspirin 2019-06 Yes 81mg Take 81 mg [facility] ers (ASPIR-LOW) 2-11 by mouth ity of 81 mg EC 18:11: daily. [place] [address] Medical Branch mirtazapine 2019-06 Yes 15mg Take 15 mg [facility] 15 mg 2-11 by mouth ity of tablet 18:11: at [place] [address] bedtime. Medical Branch metoprolol 2019-06 Yes 12.5mg Take 12.5 [facility] tartrate 25 2-11 mg by ity of mg tablet 18:11: mouth 2 [place] [address] (two) Medical times [place] daily. atorvastati 2019-06 Yes 20mg Take 20 mg [facility] n 20 mg 2-11 by mouth ity of tablet 18:11: at [place] [address] bedtime. Medical Branch acetylcyst/ 2019-06 Yes .314mg Take 0.314 [facility] nqkhtjH51/l 2-11 mg by ity of evomefol 18:11: mouth. [place] ([place] [address] Medical NAC ORAL) Branch aspirin 2019-06 Yes 81mg Take 81 mg [facility] ers (ASPIR-LOW) 2-11 by mouth ity of 81 mg EC 18:11: daily. [place] [address] Medical Branch mirtazapine 2019-06 Yes 15mg Take 15 mg [facility] 15 mg 2-11 by mouth ity of tablet 18:11: at [place] [address] bedtime. Medical Branch metoprolol 2019-06 Yes 12.5mg Take 12.5 [facility] tartrate 25 2-11 mg by ity of mg tablet 18:11: mouth 2 [place] [address] (two) Medical times [place] daily. atorvastati 2019-06 Yes 20mg Take 20 mg [facility] n 20 mg 2-11 by mouth ity of tablet 18:11: at [place] [address] bedtime. Medical Branch acetylcyst/ 2019-06 Yes .314mg Take 0.314 [facility] pvgifxH01/l 2-11 mg by ity of evomefol 18:11: mouth. [place] ([place] [address] Medical NAC ORAL) Branch aspirin 2019-06 Yes 81mg Take 81 mg [facility] ers (ASPIR-LOW) 2-11 by mouth ity of 81 mg EC 18:11: daily. [place] tablet 31 Medical Branch mirtazapine 2019-06 Yes 15mg Take 15 mg [facility] 15 mg 2-11 by mouth ity of tablet 18:11: at [place] [address] bedtime. Medical Branch metoprolol 2019-06 Yes 12.5mg Take 12.5 [facility] tartrate 25 2-11 mg by ity of mg tablet 18:11: mouth 2 [place] [address] (two) Medical times Branch daily. atorvastati 2019-06 Yes 20mg Take 20 mg [facility] n 20 mg 2-11 by mouth ity of tablet 18:11: at [place] [address] bedtime. Medical Branch acetylcyst/ 2019-06 Yes .314mg Take 0.314 [facility] sqtxxoC99/l 2-11 mg by ity of evomefol 18:11: mouth. [place] ([place] [address] Medical NAC ORAL) Branch aspirin 2019-06 Yes 81mg Take 81 mg Univ ers (ASPIR-LOW) 2-11 by mouth ity of 81 mg EC 18:11: daily. [place] [address] Medical Branch mirtazapine 2019-06 Yes 15mg Take 15 mg [facility] 15 mg 2-11 by mouth ity of tablet 18:11: at [place] [address] bedtime. Medical Branch metoprolol 2019-06 Yes 12.5mg Take 12.5 [facility] tartrate 25 2-11 mg by ity of mg tablet 18:11: mouth 2 [place] [address] (two) Medical times [place] daily. atorvastati 2019-06 Yes 20mg Take 20 mg [facility] n 20 mg 2-11 by mouth ity of tablet 18:11: at [place] [address] bedtime. Medical Branch acetylcyst/ 2019-06 Yes .314mg Take 0.314 [facility] qlopjkG86/l 2-11 mg by ity of evomefol 18:11: mouth. [place] [facility] Branch aspirin 2019-06 Yes 81mg Take 81 mg Univ ers (ASPIR-LOW) 2-11 by mouth ity of 81 mg EC 18:11: daily. [place] [address] Medical Branch mirtazapine 2019-06 Yes 15mg Take 15 mg [facility] 15 mg 2-11 by mouth ity of tablet 18:11: at [place] [address] bedtime. Medical Branch metoprolol 2019-06 Yes 12.5mg Take 12.5 [facility] tartrate 25 2-11 mg by ity of mg tablet 18:11: mouth 2 [place] [address] (two) Medical times [place] daily. atorvastati 2019-06 Yes 20mg Take 20 mg [facility] n 20 mg 2-11 by mouth ity of tablet 18:11: at [place] [address] bedtime. Medical Branch acetylcyst/ 2019-06 Yes .314mg Take 0.314 [facility] nyksjxS40/l 2-11 mg by ity of evomefol 18:11: mouth. [place] ([place] [address] Medical NAC ORAL) Branch aspirin 2019-06 Yes 81mg Take 81 mg Univ ers (ASPIR-LOW) 2-11 by mouth ity of 81 mg EC 18:11: daily. [place] [address] Medical Branch mirtazapine 2019-06 Yes 15mg Take 15 mg [facility] 15 mg 2-11 by mouth ity of tablet 18:11: at [place] [address] bedtime. Medical Branch metoprolol 2019-06 Yes 12.5mg Take 12.5 [facility] tartrate 25 2-11 mg by ity of mg tablet 18:11: mouth 2 [place] [address] ([facility]) Medical times [place] daily. atorvastati 2019-06 Yes 20mg Take 20 mg [facility] n 20 mg 2-11 by mouth ity of tablet 18:11: at [place] [address] bedtime. Medical Branch acetylcyst/ 2019-06 Yes .314mg Take 0.314 [facility] nhbdpnS67/l 2-11 mg by ity of evomefol 18:11: mouth. [place] ([place] [address] Medical NAC ORAL) Branch aspirin 2019-06 Yes 81mg Take 81 mg Univ ers (ASPIR-LOW) 2-11 by mouth ity of 81 mg EC 18:11: daily. [place] [address] Medical Branch mirtazapine 2019-06 Yes 15mg Take 15 mg [facility] 15 mg 2-11 by mouth ity of tablet 18:11: at [place] [address] bedtime. Medical Branch metoprolol 2019-06 Yes 12.5mg Take 12.5 [facility] tartrate 25 2-11 mg by ity of mg tablet 18:11: mouth 2 [place] [address] (two) Medical times [place] daily. atorvastati 2019-06 Yes 20mg Take 20 mg [facility] n 20 mg 2-11 by mouth ity of tablet 18:11: at [place] [address] bedtime. Medical Branch acetylcyst/ 2019-06 Yes .314mg Take 0.314 [facility] wdgyyxE99/l 2-11 mg by ity of evomefol 18:11: mouth. [place] ([facility] Medical NAC ORAL) Branch aspirin 2019- Yes 81mg Take 81 mg Univ ers (ASPIR-LOW) 2-11 by mouth ity of 81 mg EC 18:11: daily. [place] tablet 31 Medical Branch mirtazapine 2019-06 Yes 15mg Take 15 mg [facility] 15 mg 2-11 by mouth ity of tablet 18:11: at [place] [address] bedtime. Medical Branch metoprolol 2019-06 Yes 12.5mg Take 12.5 [facility] tartrate 25 2-11 mg by ity of mg tablet 18:11: mouth 2 [place] 31 (two) Medical times Branch daily. TOPIRAMATE 2019-0 Yes [id number] TAKE 1 [facility] 25 mg 5-29 TABLET BY ity of tablet 00:00: MOUTH [place] TWICE A Medical DAY Branch TOPIRAMATE 2019-0 Yes [id number] TAKE 1 [facility] 25 mg 5-29 TABLET BY ity of tablet 00:00: MOUTH [place] TWICE A Medical DAY Branch TOPIRAMATE 2020-0 Yes [id number] TAKE 1 [facility] 25 mg 5-29 TABLET BY ity of tablet 00:00: MOUTH [place] TWICE A Medical DAY Branch TOPIRAMATE 2020-0 Yes [id number] TAKE 1 [facility] 25 mg 5-29 TABLET BY ity of tablet 00:00: MOUTH [place] TWICE A Medical DAY Branch TOPIRAMATE 2020-0 Yes [id number] TAKE 1 [facility] 25 mg 5-29 TABLET BY ity of tablet 00:00: [facility] TWICE A Medical DAY Branch TOPIRAMATE 2020-0 Yes [id number] TAKE 1 [facility] 25 mg 5-29 TABLET BY ity of tablet 00:00: MOUTH [place] TWICE A Medical DAY Branch TOPIRAMATE 2020-0 Yes [id number] TAKE 1 [facility] 25 mg 5-29 TABLET BY ity of tablet 00:00: MOUTH [place] TWICE A Medical DAY Branch TOPIRAMATE 2020-0 Yes [id number] TAKE 1 [facility] 25 mg 5-29 TABLET BY ity of tablet 00:00: MOUTH [place] TWICE A Medical DAY Branch TOPIRAMATE 2020-0 Yes [id number] TAKE 1 [facility] 25 mg 5-29 TABLET BY ity of tablet 00:00: MOUTH [place] TWICE A Medical DAY Branch TOPIRAMATE 2020-0 Yes [id number] TAKE 1 [facility] 25 mg 5-29 TABLET BY ity of tablet 00:00: MOUTH TWICE A Medical DAY Branch TOPIRAMATE 2020-0 Yes [id number] TAKE 1 [facility] 25 mg 5-29 TABLET BY ity of tablet 00:00: MOUTH TWICE A Medical DAY Branch TOPIRAMATE 2020-0 Yes [id number] TAKE 1 [facility] 25 mg 5-29 TABLET BY ity of tablet 00:00: MOUTH TWICE A Medical DAY Branch TOPIRAMATE 2020-0 Yes [id number] TAKE 1 [facility] 25 mg 5-29 TABLET BY ity of tablet 00:00: MOUTH TWICE A Medical DAY Branch TOPIRAMATE 2020-0 Yes [id number] TAKE 1 [facility] 25 mg 5-29 TABLET BY ity of tablet 00:00: MOUTH TWICE A Medical DAY Branch TOPIRAMATE 2020-0 Yes [id number] TAKE 1 [facility] 25 mg 5-29 TABLET BY ity of tablet 00:00: MOUTH TWICE A Medical DAY Branch TOPIRAMATE 2020-0 Yes [id number] TAKE 1 [facility] 25 mg 5-29 TABLET BY ity of tablet 00:00: MOUTH TWICE A Medical DAY Branch TOPIRAMATE 2020-0 Yes [id number] TAKE 1 [facility] 25 mg 5-29 TABLET BY ity of tablet 00:00: MOUTH TWICE A Medical DAY Branch TOPIRAMATE 2020-0 Yes [id number] TAKE 1 [facility] 25 mg 5-29 TABLET BY ity of tablet 00:00: MOUTH TWICE A Medical DAY Branch TOPIRAMATE 2020-0 Yes [id number] TAKE 1 [facility] 25 mg 5-29 TABLET BY ity of tablet 00:00: MOUTH TWICE A Medical DAY Branch TOPIRAMATE 2020-0 Yes [id number] TAKE 1 [facility] 25 mg 5-29 TABLET BY ity of tablet 00:00: MOUTH 00 TWICE A Medical DAY Branch TOPIRAMATE 2020-0 Yes [id number] TAKE 1 [facility] 25 mg 5-29 TABLET BY ity of tablet 00:00: MOUTH 00 TWICE A Medical DAY Branch TOPIRAMATE 2020-0 Yes [id number] TAKE 1 [facility] 25 mg 5-29 TABLET BY ity of tablet 00:00: MOUTH TWICE A Medical DAY Branch TOPIRAMATE 2020-0 Yes [id number] TAKE 1 [facility] 25 mg 5-29 TABLET BY ity of tablet 00:00: TWICE A Medical DAY Branch TOPIRAMATE 2020-0 Yes [id number] TAKE 1 [facility] 25 mg 5-29 TABLET BY ity of tablet 00:00: TWICE A Medical DAY Branch TOPIRAMATE 2020-0 Yes [id number] TAKE 1 [facility] 25 mg 5-29 TABLET BY ity of tablet 00:00: TWICE A Medical DAY Branch TOPIRAMATE 2020-0 Yes [id number] TAKE 1 [facility] 25 mg 5-29 TABLET BY ity of tablet 00:00: TWICE A Medical DAY Branch TOPIRAMATE 2020-0 Yes [id number] TAKE 1 [facility] 25 mg 5-29 TABLET BY ity of tablet 00:00: TWICE A Medical DAY Branch TOPIRAMATE 2020-0 Yes [id number] TAKE 1 [facility] 25 mg 5-29 TABLET BY ity of tablet 00:00: TWICE A Medical DAY Branch TOPIRAMATE 2020-0 Yes [id number] TAKE 1 [facility] 25 mg 5-29 TABLET BY ity of tablet 00:00: TWICE A Medical DAY Branch TOPIRAMATE 2020-0 Yes [id number] TAKE 1 [facility] 25 mg 5-29 TABLET BY ity of tablet 00:00: TWICE A Medical DAY Branch TOPIRAMATE 2020-0 Yes [id number] TAKE 1 [facility] 25 mg 5-29 TABLET BY ity of tablet 00:00: TWICE A Medical DAY Branch TOPIRAMATE 2020-0 Yes [id number] TAKE 1 [facility] 25 mg 5-29 TABLET BY ity of tablet 00:00: TWICE A Medical DAY Branch TOPIRAMATE 2020-0 Yes [id number] TAKE 1 [facility] 25 mg 5-29 TABLET BY ity of tablet 00:00: TWICE A Medical DAY Branch topiramate 2020-0 Yes [id number] 50mg Take 1 [facility] 50 mg 2-05 tablet by ity of tablet 00:00: [facility] (two) Medical times Branch daily. topiramate 2020-0 Yes [id number] 50mg Take 1 [facility] 50 mg 2-05 tablet by ity of tablet 00:00: mouth 2 (two) Medical times Branch daily. topiramate 2020-0 Yes [id number] 50mg Take 1 [facility] 50 mg 2-05 tablet by ity of tablet 00:00: mouth 2 (two) Medical times Branch daily. topiramate 2020-0 Yes [id number] 50mg Take 1 [facility] 50 mg 2-05 tablet by ity of tablet 00:00: mouth (two) Medical times Branch daily. topiramate 2020-0 Yes [id number] 50mg Take 1 [facility] 50 mg 2-05 tablet by ity of tablet 00:00: mouth (two) Medical times Branch daily. topiramate 2020-0 Yes [id number] 50mg Take 1 [facility] 50 mg 2-05 tablet by ity of tablet 00:00: mouth (two) Medical times Branch daily. topiramate 2020-0 Yes [id number] 50mg Take 1 [facility] 50 mg 2-05 tablet by ity of tablet 00:00: mouth (two) Medical times Branch daily. topiramate 2020-0 Yes [id number] 50mg Take 1 [facility] 50 mg 2-05 tablet by ity of tablet 00:00: mouth (two) Medical times Branch daily. topiramate 2020-0 Yes [id number] 50mg Take 1 [facility] 50 mg 2-05 tablet by ity of tablet 00:00: mouth (two) Medical times Branch daily. topiramate 2020-0 Yes [id number] 50mg Take 1 [facility] 50 mg 2-05 tablet by ity of tablet 00:00: mouth (two) Medical times Branch daily. topiramate 2020-0 Yes [id number] 50mg Take 1 [facility] 50 mg 2-05 tablet by ity of tablet 00:00: mouth (two) Medical times Branch daily. topiramate 2020-0 Yes [id number] 50mg Take 1 [facility] 50 mg 2-05 tablet by ity of tablet 00:00: mouth (two) Medical times Branch daily. topiramate 2020-0 Yes [id number] 50mg Take 1 [facility] 50 mg 2-05 tablet by ity of tablet 00:00: mouth (two) Medical times Branch daily. topiramate 2020-0 Yes [id number] 50mg Take 1 [facility] 50 mg 2-05 tablet by ity of tablet 00:00: mouth (two) Medical times Branch daily. topiramate 2020-0 Yes [id number] 50mg Take 1 [facility] 50 mg 2-05 tablet by ity of tablet 00:00: mouth (two) Medical times Branch daily. topiramate 2020-0 Yes [id number] 50mg Take 1 [facility] 50 mg 2-05 tablet by ity of tablet 00:00: mouth (two) Medical times Branch daily. topiramate 2020-0 Yes [id number] 50mg Take 1 [facility] 50 mg 2-05 tablet by ity of tablet 00:00: mouth (two) Medical times Branch daily. topiramate 2020-0 Yes [id number] 50mg Take 1 [facility] 50 mg 2-05 tablet by ity of tablet 00:00: mouth (two) Medical times Branch daily. topiramate 2020-0 Yes [id number] 50mg Take 1 [facility] 50 mg 2-05 tablet by ity of tablet 00:00: mouth (two) Medical times Branch daily. topiramate 2020-0 Yes [id number] 50mg Take 1 [facility] 50 mg 2-05 tablet by ity of tablet 00:00: mouth (two) Medical times Branch daily. topiramate 2020-0 Yes [id number] 50mg Take 1 [facility] 50 mg 2-05 tablet by ity of tablet 00:00: mouth (two) Medical times Branch daily. topiramate 2020-0 Yes [id number] 50mg Take 1 [facility] 50 mg 2-05 tablet by ity of tablet 00:00: mouth (two) Medical times Branch daily. topiramate 2020-0 Yes [id number] 50mg Take 1 [facility] 50 mg 2-05 tablet by ity of tablet 00:00: mouth (two) Medical times Branch daily. topiramate 2020-0 Yes [id number] 50mg Take 1 [facility] 50 mg 2-05 tablet by ity of tablet 00:00: mouth (two) Medical times Branch daily. topiramate 2020-0 Yes [id number] 50mg Take 1 [facility] 50 mg 2-05 tablet by ity of tablet 00:00: mouth (two) Medical times Branch daily. topiramate 2020-0 Yes [id number] 50mg Take 1 [facility] 50 mg 2-05 tablet by ity of tablet 00:00: mouth (two) Medical times Branch daily. topiramate 2020-0 Yes [id number] 50mg Take 1 [facility] 50 mg 2-05 tablet by ity of tablet 00:00: mouth (two) Medical times Branch daily. topiramate 2020-0 Yes [id number] 50mg Take 1 [facility] 50 mg 2-05 tablet by ity of tablet 00:00: mouth 2 (two) Medical times Branch daily. topiramate 2020-0 Yes [id number] 50mg Take 1 [facility] 50 mg 2-05 tablet by ity of tablet 00:00: mouth 2 (two) Medical times Branch daily. topiramate 2020-0 Yes [id number] 50mg Take 1 [facility] 50 mg 2-05 tablet by ity of tablet 00:00: mouth (two) Medical times Branch daily. topiramate 2020-0 Yes [id number] 50mg Take 1 [facility] 50 mg 2-05 tablet by ity of tablet 00:00: mouth (two) Medical times Branch daily. topiramate 2020-0 Yes [id number] 50mg Take 1 [facility] 50 mg 2-05 tablet by ity of tablet 00:00: mouth (two) Medical times Branch daily. topiramate 2020-0 Yes [id number] 50mg Take 1 [facility] 50 mg 2-05 tablet by ity of tablet 00:00: mouth [place] (two) Medical times Branch daily. fluticasone 2018-06 [...] by mouth ity of capsule 00:00: daily. [place] [address] Medical Branch omeprazole 2018-06 Yes 40mg Take 40 mg U nivers 40 mg 0-14 by mouth ity of capsule 00:00: daily. [place] [facility] omeprazole 2018-06 Yes 40mg Take 40 mg U nivers 40 mg 0-14 by mouth ity of capsule 00:00: daily. [place] [facility] omeprazole 2018-06 Yes 40mg Take 40 mg U nivers 40 mg 0-14 by mouth ity of capsule 00:00: daily. [place] [facility] omeprazole 2018- Yes 40mg Take 40 mg U nivers 40 mg 0-14 by mouth ity of capsule 00:00: daily. [place] [facility] [facility]-06 Yes 40mg Take 40 mg U nivers 40 mg 0-14 by mouth ity of capsule 00:00: daily. [address] omeprazole 2018-06 Yes 40mg Take 40 mg U nivers 40 mg 0-14 by mouth ity of capsule 00:00: daily. [address] omeprazole 2018-06 Yes 40mg Take 40 mg U nivers 40 mg 0-14 by mouth ity of capsule 00:00: daily. [facility] omeprazole 2018-06 Yes 40mg Take 40 mg U nivers 40 mg 0-14 by mouth ity of capsule 00:00: daily. [facility] omeprazole 2018-06 Yes 40mg Take 40 mg U nivers 40 mg 0-14 by mouth ity of capsule 00:00: daily. [address] omeprazole 2018-06 Yes 40mg Take 40 mg U nivers 40 mg 0-14 by mouth ity of capsule 00:00: daily. [address] omeprazole 2018- Yes 40mg Take 40 mg U nivers 40 mg 0-14 by mouth ity of capsule 00:00: daily. [address] omeprazole 2018-06 Yes 40mg Take 40 mg U nivers 40 mg 0-14 by mouth ity of capsule 00:00: daily. [address] omeprazole 2018- Yes 40mg Take 40 mg U nivers 40 mg 0-14 by mouth ity of capsule 00:00: daily. [address] omeprazole 2018- Yes 40mg Take 40 mg U nivers 40 mg 0-14 by mouth ity of capsule 00:00: daily. [address] omeprazole 2018- Yes 40mg Take 40 mg U nivers 40 mg 0-14 by mouth ity of capsule 00:00: daily. [facility] omeprazole 2018- Yes 40mg Take 40 mg U nivers 40 mg 0-14 by mouth ity of capsule 00:00: daily. [facility] omeprazole 2018- Yes 40mg Take 40 mg U nivers 40 mg 0-14 by mouth ity of capsule 00:00: daily. [facility] omeprazole 2018- Yes 40mg Take 40 mg U nivers 40 mg 0-14 by mouth ity of capsule 00:00: daily. [facility] omeprazole 2018- Yes 40mg Take 40 mg U nivers 40 mg 0-14 by mouth ity of capsule 00:00: daily. [address] omeprazole 2018- Yes 40mg Take 40 mg U nivers 40 mg 0-14 by mouth ity of capsule 00:00: daily. [address] omeprazole 2018- Yes 40mg Take 40 mg U nivers 40 mg 0-14 by mouth ity of capsule 00:00: daily. [address] omeprazole 2018- Yes 40mg Take 40 mg U nivers 40 mg 0-14 by mouth ity of capsule 00:00: daily. [facility] omeprazole 2018- Yes 40mg Take 40 mg U nivers 40 mg 0-14 by mouth ity of capsule 00:00: daily. [address] omeprazole 2018- Yes 40mg Take 40 mg U nivers 40 mg 0-14 by mouth ity of capsule 00:00: daily. [address] omeprazole 2018- Yes 40mg Take 40 mg U nivers 40 mg 0-14 by mouth ity of capsule 00:00: daily. [address] omeprazole 2018- Yes 40mg Take 40 mg U nivers 40 mg 0-14 by mouth ity of capsule 00:00: daily. [address] omeprazole 2018- Yes 40mg Take 40 mg U nivers 40 mg 0-14 by mouth ity of capsule 00:00: daily. [address] omeprazole 2018- Yes 40mg Take 40 mg U nivers 40 mg 0-14 by mouth ity of capsule 00:00: daily. [address] omeprazole 2018- Yes 40mg Take 40 mg U nivers 40 mg 0-14 by mouth ity of capsule 00:00: daily. [address] omeprazole 2018-06 Yes 40mg Take 40 mg U nivers 40 mg 0-14 by mouth ity of capsule 00:00: daily. [address] omeprazole 2018-06 Yes 40mg Take 40 mg U nivers 40 mg 0-14 by mouth ity of capsule 00:00: daily. [address] omeprazole 2018-06 Yes 40mg Take 40 mg U nivers 40 mg 0-14 by mouth ity of capsule 00:00: daily. [address] omeprazole 2018-06 Yes 40mg QD Take [address] [facility] (PRILOSEC) 0-14 by [facility] traZODone Yes TAKE 1/2 Univ ers 50 mg 9-23 TO 1 ity of tablet 00:00: TABLET BY [address] EVERY DAY Branch AT BEDTIME FOR SLEEP traZODone Yes TAKE 1/2 Univ ers 50 mg 9-23 TO 1 ity of tablet 00:00: TABLET BY [address] EVERY DAY Branch AT BEDTIME FOR SLEEP traZODone Yes TAKE 1/2 Univ ers 50 mg 9-23 TO 1 ity of tablet 00:00: TABLET BY [address] EVERY DAY Branch AT BEDTIME FOR SLEEP traZODone Yes TAKE 1/2 Univ ers 50 mg 9-23 TO 1 ity of tablet 00:00: TABLET BY [address] EVERY DAY Branch AT BEDTIME FOR SLEEP traZODone Yes TAKE 1/2 Univ ers 50 mg 9-23 TO 1 ity of tablet 00:00: TABLET BY [address] EVERY DAY Branch AT BEDTIME FOR SLEEP traZODone Yes TAKE 1/2 Univ ers 50 mg 9-23 TO 1 ity of tablet 00:00: TABLET BY [address] EVERY DAY Branch AT BEDTIME FOR SLEEP traZODone Yes TAKE 1/2 Univ ers 50 mg 9-23 TO 1 ity of tablet 00:00: TABLET BY [address] EVERY DAY Branch AT BEDTIME FOR SLEEP traZODone Yes TAKE 1/2 Univ ers 50 mg 9-23 TO 1 ity of tablet 00:00: TABLET BY [address] EVERY DAY Branch AT BEDTIME FOR SLEEP traZODone 2019-0 Yes TAKE 1/2 Univ ers 50 mg 9-23 TO 1 ity of tablet 00:00: TABLET BY [address] EVERY DAY Branch AT BEDTIME FOR SLEEP traZODone 2019-0 Yes TAKE 1/2 Univ ers 50 mg 9-23 TO 1 ity of tablet 00:00: TABLET BY [address] EVERY DAY Branch AT BEDTIME FOR SLEEP traZODone 20190 Yes TAKE 1/2 Univ ers 50 mg 9-23 TO 1 ity of tablet 00:00: TABLET BY [address] EVERY DAY Branch AT BEDTIME FOR SLEEP traZODone 2019 Yes TAKE 1/2 [facility] ers 50 mg 9-23 TO 1 ity of tablet 00:00: TABLET BY [address] EVERY DAY Branch AT BEDTIME FOR SLEEP traZODone 20190 Yes TAKE 1/2 Univ ers 50 mg 9-23 TO 1 ity of tablet 00:00: TABLET BY [address] EVERY DAY Branch AT BEDTIME FOR SLEEP traZODone 2019 Yes TAKE 1/2 Univ ers 50 mg 9-23 TO 1 ity of tablet 00:00: TABLET BY [address] EVERY DAY Branch AT BEDTIME FOR SLEEP traZODone 2019 Yes TAKE 1/2 Univ ers 50 mg 9-23 TO 1 ity of tablet 00:00: TABLET BY [address] EVERY DAY Branch AT BEDTIME FOR SLEEP traZODone 2019-0 Yes TAKE 1/2 [facility] ers 50 mg 9-23 TO 1 ity of tablet 00:00: TABLET BY [address] EVERY DAY Branch AT BEDTIME FOR SLEEP traZODone 2019-0 Yes TAKE 1/2 [facility] ers 50 mg 9-23 TO 1 ity of tablet 00:00: TABLET BY [address] EVERY DAY Branch AT BEDTIME FOR SLEEP traZODone 2019-0 Yes TAKE 1/2 [facility] ers 50 mg 9-23 TO 1 ity of tablet 00:00: TABLET BY [address] EVERY DAY Branch AT BEDTIME FOR SLEEP traZODone 2019-0 Yes TAKE 1/2 Univ ers 50 mg 9-23 TO 1 ity of tablet 00:00: TABLET BY [address] EVERY DAY Branch AT BEDTIME FOR SLEEP traZODone 2019-0 Yes TAKE 1/2 Univ ers 50 mg 9-23 TO 1 ity of tablet 00:00: TABLET BY [place] [id number] MOUTH [facility] EVERY DAY Branch AT BEDTIME FOR SLEEP traZODone 2019-0 Yes TAKE 1/2 Univ ers 50 mg 9-23 TO 1 ity of tablet 00:00: TABLET BY [place] [id number] MOUTH [facility] EVERY DAY Branch AT BEDTIME FOR SLEEP traZODone 2019-0 Yes TAKE 1/2 Univ ers 50 mg 9-23 TO 1 ity of tablet 00:00: TABLET BY [address] EVERY DAY Branch AT BEDTIME FOR SLEEP traZODone 2019-0 Yes TAKE 1/2 Univ ers 50 mg 9-23 TO 1 ity of tablet 00:00: TABLET BY [place] [id number] MOUTH [facility] EVERY DAY Branch AT BEDTIME FOR SLEEP traZODone 20190 Yes TAKE 1/2 Univ ers 50 mg 9-23 TO 1 ity of tablet 00:00: TABLET BY [address] EVERY DAY Branch AT BEDTIME FOR SLEEP traZODone 2019-0 Yes TAKE 1/2 Univ ers 50 mg 9-23 TO 1 ity of tablet 00:00: TABLET BY [address] EVERY DAY Branch AT BEDTIME FOR SLEEP traZODone 2019-0 Yes TAKE 1/2 [facility] ers 50 mg 9-23 TO 1 ity of tablet 00:00: TABLET BY [address] EVERY DAY Branch AT BEDTIME FOR SLEEP traZODone 2019-0 Yes TAKE 1/2 [facility] ers 50 mg 9-23 TO 1 ity of tablet 00:00: TABLET BY [address] EVERY DAY Branch AT BEDTIME FOR SLEEP traZODone 2019-0 Yes TAKE 1/2 [facility] ers 50 mg 9-23 TO 1 ity of tablet 00:00: TABLET BY [address] EVERY DAY Branch AT BEDTIME FOR SLEEP traZODone 2019-0 Yes TAKE 1/2 [facility] ers 50 mg 9-23 TO 1 ity of tablet 00:00: TABLET BY [place] [id number] MOUTH [facility] EVERY DAY Branch AT BEDTIME FOR SLEEP traZODone 2019-0 Yes TAKE 1/2 Univ ers 50 mg 9-23 TO 1 ity of tablet 00:00: TABLET BY [address] EVERY DAY Branch AT BEDTIME FOR SLEEP traZODone 2019-0 Yes TAKE 1/2 [facility] ers 50 mg 9-23 TO 1 ity of tablet 00:00: TABLET BY [place] [id number] MOUTH [facility] EVERY DAY Branch AT BEDTIME FOR SLEEP traZODone 2019-0 Yes TAKE 1/2 Univ ers 50 mg 03-04 TO 1 ity of tablet 00:00: TABLET BY [place] MOUTH [facility] EVERY DAY Branch AT BEDTIME FOR SLEEP traZODone 2018- Yes TAKE 1/2 Univ ers 50 mg - TO 1 ity of tablet 00:00: TABLET BY [place] MOUTH Medical EVERY DAY Branch AT BEDTIME FOR SLEEP traZODone Yes 50mg QD Take [address] (DESYREL) 03-04 by [facility] 50 MG 00:00: nightly. Medical tablet 00 [place] escitalopra Yes 20mg Take 20 mg [facility] oxalate 9-21 by mouth. ity o f 20 mg 00:00: [place] [facility] oxalate 9-21 by mouth. ity o f 20 mg 00:00: [place] [facility] oxalate 9-21 by mouth. ity o f 20 mg 00:00: [place] tablet [facility] escitalopra Yes 20mg Take 20 mg Univers m oxalate 9-21 by mouth. ity o f 20 mg 00:00: [place] tablet [facility] escitalopra Yes 20mg Take 20 mg Univers m oxalate 9-21 by mouth. ity o f 20 mg 00:00: [place] tablet [facility] escitalopra Yes 20mg Take 20 mg Univers m oxalate 9-21 by mouth. ity o f 20 mg 00:00: [place] [facility] oxalate 9-21 by mouth. ity o f 20 mg 00:00: [place] tablet [facility] escitalopra Yes 20mg Take 20 mg Univers m oxalate 9-21 by mouth. ity o f 20 mg 00:00: [place] tablet [facility] escitalopra Yes 20mg Take 20 mg Univers m oxalate 9-21 by mouth. ity o f 20 mg 00:00: [place] tablet [facility] escitalopra Yes 20mg Take 20 mg Univers m oxalate 9-21 by mouth. ity o f 20 mg 00:00: [place] tablet [facility] escitalopra Yes 20mg Take 20 mg Univers m oxalate 9-21 by mouth. ity o f 20 mg 00:00: [place] tablet [facility] escitalopra 0 Yes 20mg Take 20 mg Univers m oxalate 9-21 by mouth. ity o f 20 mg 00:00: [place] tablet [facility] escitalopra 0 Yes 20mg Take 20 mg Univers m oxalate 9-21 by mouth. ity o f 20 mg 00:00: [place] tablet [facility] escitalopra 0 Yes 20mg Take 20 mg Univers m oxalate 9-21 by mouth. ity o f 20 mg 00:00: [place] tablet [facility] escitalopra 0 Yes 20mg Take 20 mg Univers m oxalate 9-21 by mouth. ity o f 20 mg 00:00: [place] tablet [facility] escitalopra 0 Yes 20mg Take 20 mg Univers m oxalate 9-21 by mouth. ity o f 20 mg 00:00: [place] tablet [facility] escitalopra 0 Yes 20mg Take 20 mg Univers m oxalate 9-21 by mouth. ity o f 20 mg 00:00: [place] tablet [facility] escitalopra 0 Yes 20mg Take 20 mg Univers m oxalate 9-21 by mouth. ity o f 20 mg 00:00: [place] tablet [facility] escitalopra 0 Yes 20mg Take 20 mg Univers m oxalate 9-21 by mouth. ity o f 20 mg 00:00: [place] tablet [facility] escitalopra 0 Yes 20mg Take 20 mg Univers m oxalate 9-21 by mouth. ity o f 20 mg 00:00: [place] tablet [facility] escitalopra 0 Yes 20mg Take 20 mg Univers m oxalate 9-21 by mouth. ity o f 20 mg 00:00: [place] tablet [facility] escitalopra 0 Yes 20mg Take 20 mg Univers m oxalate 9-21 by mouth. ity o f 20 mg 00:00: [place] tablet [facility] escitalopra 0 Yes 20mg Take 20 mg Univers m oxalate 9-21 by mouth. ity o f 20 mg 00:00: [place] tablet [facility] escitalopra 2018-0 Yes 20mg Take 20 mg Univers m oxalate 9-21 by mouth. ity o f 20 mg 00:00: [place] tablet 00 [facility] escitalopra 2019-0 Yes 20mg Take 20 mg Univers m oxalate 9-21 by mouth. ity o f 20 mg 00:00: [place] tablet 00 [facility] escitalopra 2019-0 Yes 20mg Take 20 mg Univers m oxalate 9-21 by mouth. ity o f 20 mg 00:00: [place] tablet 00 [facility] escitalopra 2018-0 Yes 20mg Take 20 mg Univers m oxalate 9-21 by mouth. ity o f 20 mg 00:00: [place] tablet 00 [facility] escitalopra 2018-0 Yes 20mg Take 20 mg Univers m oxalate 9-21 by mouth. ity o f 20 mg 00:00: [place] tablet 00 [facility] escitalopra 2018-0 Yes 20mg Take 20 mg Univers m oxalate 9-21 by mouth. ity o f 20 mg 00:00: [place] tablet 00 [facility] escitalopra 2018-0 Yes 20mg Take 20 mg Univers m oxalate 9-21 by mouth. ity o f 20 mg 00:00: [place] tablet 00 [facility] escitalopra 2018-0 Yes 20mg Take 20 mg Univers m oxalate 9-21 by mouth. ity o f 20 mg 00:00: [place] tablet 00 [facility] escitalopra 2018-0 Yes 20mg Take 20 mg Univers m oxalate 9-21 by mouth. ity o f 20 mg 00:00: [place] tablet 00 [facility] escitalopra 2018-0 Yes 20mg Take 20 mg Univers m oxalate 9-21 by mouth. ity o f 20 mg 00:00: [place] tablet 00 [facility] buPROPion 2019-0 Yes 300mg QD Take [address] [facility] (WELLBUTRIN 9-21 mg by [facility] XL) 300 MG 00:00: mouth Medica l 24 hr 00 every Center tablet morning. escitalopra 2019-0 Yes 20mg QD Take [address] [facility] m oxalate 9-21 by mouth [facility] (LEXAPRO) 00:00: daily. Medica l 20 MG 00 Center tablet buPROPion 2018-0 Yes TAKE 1 Univer s XL 300 mg 4-25 TABLET BY ity o f 24 hr 00:00: MOUTH [place] tablet 00 EVERY DAY Medical IN THE Branch MORNING buPROPion 2018-0 Yes TAKE 1 Univer [facility] XL 300 mg 4-25 TABLET BY ity o f 24 hr 00:00: MOUTH [place] tablet 00 EVERY DAY Medical IN THE [facility] buPROPion Yes TAKE 1 Univer s XL 300 mg 4-25 TABLET BY ity o f 24 hr 00:00: MOUTH [place] tablet 00 EVERY DAY Medical IN THE [facility] buPROPion Yes TAKE 1 Univer s XL 300 mg 4-25 TABLET BY ity o f 24 hr 00:00: MOUTH [place] tablet 00 EVERY DAY Medical IN THE [facility] buPROPion Yes TAKE 1 Univer s XL 300 mg 4-25 TABLET BY ity o f 24 hr 00:00: MOUTH [place] tablet 00 EVERY DAY Medical IN THE [facility] buPROPion Yes TAKE 1 Univer s XL 300 mg 4-25 TABLET BY ity o f 24 hr 00:00: MOUTH [place] tablet 00 EVERY DAY Medical IN THE [facility] buPROPion Yes TAKE 1 Univer s XL 300 mg 4-25 TABLET BY ity o f 24 hr 00:00: MOUTH [place] tablet 00 EVERY DAY Medical IN THE [facility] buPROPion Yes TAKE 1 Univer s XL 300 mg 4-25 TABLET BY ity o f 24 hr 00:00: MOUTH [place] tablet 00 EVERY DAY Medical IN THE [facility] buPROPion Yes TAKE 1 Univer s XL 300 mg 4-25 TABLET BY ity o f 24 hr 00:00: MOUTH [place] tablet 00 EVERY DAY Medical IN THE [facility] buPROPion Yes TAKE 1 Univer s XL 300 mg 4-25 TABLET BY ity o f 24 hr 00:00: MOUTH [place] tablet 00 EVERY DAY Medical IN THE [facility] buPROPion Yes TAKE 1 Univer s XL 300 mg 4-25 TABLET BY ity o f 24 hr 00:00: MOUTH [place] tablet 00 EVERY DAY Medical IN THE [facility] buPROPion Yes TAKE 1 Univer s XL 300 mg 4-25 TABLET BY ity o f 24 hr 00:00: MOUTH [place] tablet 00 EVERY DAY Medical IN THE [facility] buPROPion Yes TAKE 1 Univer s XL 300 mg 4-25 TABLET BY ity o f 24 hr 00:00: MOUTH [place] tablet 00 EVERY DAY Medical IN THE [facility] buPROPion Yes TAKE 1 Univer s XL 300 mg 4-25 TABLET BY ity o f 24 hr 00:00: MOUTH [place] tablet 00 EVERY DAY Medical IN THE [facility] buPROPion Yes TAKE 1 Univer s XL 300 mg 4-25 TABLET BY ity o f 24 hr 00:00: MOUTH [place] tablet 00 EVERY DAY Medical IN THE [facility] buPROPion Yes TAKE 1 Univer s XL 300 mg 4-25 TABLET BY ity o f 24 hr 00:00: MOUTH [place] tablet 00 EVERY DAY Medical IN THE [facility] buPROPion Yes TAKE 1 Univer s XL 300 mg 4-25 TABLET BY ity o f 24 hr 00:00: MOUTH [place] tablet 00 EVERY DAY Medical IN THE [facility] buPROPion Yes TAKE 1 Univer s XL 300 mg 4-25 TABLET BY ity o f 24 hr 00:00: MOUTH [place] tablet 00 EVERY DAY Medical IN THE [facility] buPROPion Yes TAKE 1 Univer s XL 300 mg 4-25 TABLET BY ity o f 24 hr 00:00: MOUTH [place] tablet 00 EVERY DAY Medical IN THE [facility] buPROPion Yes TAKE 1 Univer s XL 300 mg 4-25 TABLET BY ity o f 24 hr 00:00: MOUTH [place] tablet 00 EVERY DAY Medical IN THE [facility] buPROPion Yes TAKE 1 Univer [facility] XL 300 mg 4-25 TABLET BY ity o f 24 hr 00:00: MOUTH [place] tablet 00 EVERY DAY Medical IN THE [facility] buPROPion Yes TAKE 1 Univer s XL 300 mg 4-25 TABLET BY ity o f 24 hr 00:00: MOUTH [place] tablet 00 EVERY DAY Medical IN THE [facility] buPROPion Yes TAKE 1 Univer [facility] XL 300 mg 4-25 TABLET BY ity o f 24 hr 00:00: MOUTH [place] tablet 00 EVERY DAY Medical IN THE [facility] buPROPion Yes TAKE 1 Univer s XL 300 mg 4-25 TABLET BY ity o f 24 hr 00:00: MOUTH [place] tablet 00 EVERY DAY Medical IN THE [facility] buPROPion Yes TAKE 1 Univer s XL 300 mg 4-25 TABLET BY ity o f 24 hr 00:00: MOUTH [place] tablet 00 EVERY DAY Medical IN THE [facility] buPROPion Yes TAKE 1 Univer s XL 300 mg 4-25 TABLET BY ity o f 24 hr 00:00: MOUTH [place] tablet 00 EVERY DAY Medical IN THE [facility] buPROPion Yes TAKE 1 Univer s XL 300 mg 4-25 TABLET BY ity o f 24 hr 00:00: MOUTH [place] tablet 00 EVERY DAY Medical IN [facility] MORNING buPROPion Yes TAKE 1 Univer s XL 300 mg 4-25 TABLET BY ity o f 24 hr 00:00: MOUTH [place] tablet 00 EVERY DAY Medical IN [facility] MORNING buPROPion Yes TAKE 1 Univer s XL 300 mg 4-25 TABLET BY ity o f 24 hr 00:00: MOUTH [place] tablet 00 EVERY DAY Medical IN THE [place] MORNING buPROPion Yes TAKE 1 Univer s XL 300 mg 4-25 TABLET BY ity o f 24 hr 00:00: MOUTH [place] tablet 00 EVERY DAY Medical IN THE [place] MORNING buPROPion Yes TAKE 1 Univer [facility] XL 300 mg 4-25 TABLET BY ity o f 24 hr 00:00: MOUTH [place] tablet 00 EVERY DAY Medical IN THE [facility] buPROPion Yes TAKE 1 Univer s XL 300 mg 4-25 TABLET BY ity o f 24 hr 00:00: MOUTH [place] tablet 00 EVERY DAY Medical IN THE [facility] buPROPion Yes TAKE 1 Univer s XL 300 mg 4-25 TABLET BY ity o f 24 hr 00:00: MOUTH [place] tablet 00 EVERY DAY Medical IN [facility] benazepril 0 Yes 10mg Take 10 mg U nivers 10 mg 5-03 by mouth ity of tablet 00:00: daily. [address] benazepril 2017-0 Yes 10mg Take 10 mg U nivers 10 mg 5-03 by mouth ity of tablet 00:00: daily. [address] benazepril 0 Yes 10mg Take 10 mg U nivers 10 mg 5-03 by mouth ity of tablet 00:00: daily. [address] benazepril 0 Yes 10mg Take 10 mg U nivers 10 mg 5-03 by mouth ity of tablet 00:00: daily. [place] [facility] benazepril 0 Yes 10mg Take 10 mg U nivers 10 mg 5-03 by mouth ity of tablet 00:00: daily. [address] benazepril 2017-0 Yes 10mg Take 10 mg U nivers 10 mg 5-03 by mouth ity of tablet 00:00: daily. [address] benazepril 2018-0 Yes 10mg Take 10 mg U nivers 10 mg 5-03 by mouth ity of tablet 00:00: daily. [facility] Branch benazepril 2018-0 Yes 10mg Take 10 mg U nivers 10 mg 5-03 by mouth ity of tablet 00:00: daily. [facility] benazepril 2018-0 Yes 10mg Take 10 mg U nivers 10 mg 5-03 by mouth ity of tablet 00:00: daily. [facility] benazepril 2018-0 Yes 10mg Take 10 mg U nivers 10 mg 5-03 by mouth ity of tablet 00:00: daily. [facility] benazepril 2018-0 Yes 10mg Take 10 mg U nivers 10 mg 5-03 by mouth ity of tablet 00:00: daily. [facility] benazepril 2018-0 Yes 10mg Take 10 mg U nivers 10 mg 5-03 by mouth ity of tablet 00:00: daily. [facility] benazepril 2018-0 Yes 10mg Take 10 mg U nivers 10 mg 5-03 by mouth ity of tablet 00:00: daily. [facility] benazepril 2018-0 Yes 10mg Take 10 mg U nivers 10 mg 5-03 by mouth ity of tablet 00:00: daily. [facility] benazepril 2018-0 Yes 10mg Take 10 mg U nivers 10 mg 5-03 by mouth ity of tablet 00:00: daily. [place] [facility] benazepril 2018-0 Yes 10mg Take 10 mg U nivers 10 mg 5-03 by mouth ity of tablet 00:00: daily. [facility] benazepril 2018-0 Yes 10mg Take 10 mg U nivers 10 mg 5-03 by mouth ity of tablet 00:00: daily. [facility] benazepril 2018-0 Yes 10mg Take 10 mg U nivers 10 mg 5-03 by mouth ity of tablet 00:00: daily. [place] [facility] benazepril 2018-0 Yes 10mg Take 10 mg U nivers 10 mg 5-03 by mouth ity of tablet 00:00: daily. [facility] benazepril 2018-0 Yes 10mg Take 10 mg U nivers 10 mg 5-03 by mouth ity of tablet 00:00: daily. [facility] benazepril 2018-0 Yes 10mg Take 10 mg U nivers 10 mg 5-03 by mouth ity of tablet 00:00: daily. [facility] benazepril 2018-0 Yes 10mg Take 10 mg U nivers 10 mg 5-03 by mouth ity of tablet 00:00: daily. [place] [facility] benazepril 2018-0 Yes 10mg Take 10 mg U nivers 10 mg 5-03 by mouth ity of tablet 00:00: daily. [place] [facility] benazepril 2018-0 Yes 10mg Take 10 mg U nivers 10 mg 5-03 by mouth ity of tablet 00:00: daily. [place] [facility] benazepril 2018-0 Yes 10mg Take 10 mg U nivers 10 mg 5-03 by mouth ity of tablet 00:00: daily. [place] [facility] benazepril 2018-0 Yes 10mg Take 10 mg U nivers 10 mg 5-03 by mouth ity of tablet 00:00: daily. [place] [facility] benazepril 2018-0 Yes 10mg Take 10 mg U nivers 10 mg 5-03 by mouth ity of tablet 00:00: daily. [place] [facility] benazepril 2018-0 Yes 10mg Take 10 mg U nivers 10 mg 5-03 by mouth ity of tablet 00:00: daily. [place] [facility] benazepril 2018-0 Yes 10mg Take 10 mg U nivers 10 mg 5-03 by mouth ity of tablet 00:00: daily. [place] [facility] benazepril 2018-0 Yes 10mg Take 10 mg U nivers 10 mg 5-03 by mouth ity of tablet 00:00: daily. [place] [facility] benazepril 2018-0 Yes 10mg Take 10 mg U nivers 10 mg 5-03 by mouth ity of tablet 00:00: daily. [place] [facility] benazepril 2018-0 Yes 10mg Take 10 mg U nivers 10 mg 5-03 by mouth ity of tablet 00:00: daily. [place] [facility] benazepril 2018-0 Yes 10mg Take 10 mg U nivers 10 mg 5-03 by mouth ity of tablet 00:00: daily. [address] Tamsulosin Tamsulosin No 1{capsu QD Tamsulosin HCl [...] 800 MG 800 MG t} 800 MG traZODone traZODone No traZODone HCl 50 MG HCl 50 MG HCl 50 MG Ibuprofen Ibuprofen No 1{table Ibuprofen 800 MG 800 MG t} 800 MG ALPRAZolam ALPRAZolam No ALPRAZolam buPROPion buPROPion No buPROPion HCl ER (XL) HCl ER (XL) HCl ER 300 MG 300 MG (XL) 300 MG Multivitami Multivitami No Multivitam n n in Tamsulosin Tamsulosin No Tamsulosin HCl 0.4 MG HCl 0.4 MG HCl 0.4 MG IBUPROFEN IBUPROFEN No IBUPROFEN Metoprolol Metoprolol No Metoprolol Tartrate Tartrate Tartrate Ciprofloxac Ciprofloxac No 1{table BID Ciprofloxa in HCl 500 in HCl 500 t} phil[place]a HCl MG MG 500 MG Escitalopra Escitalopra No 1{table QD Escitalopr m Oxalate m Oxalate t} am Oxalate 10 MG 10 MG 10 MG Low-Dose Low-Dose No Low-Dose Aspirin Aspirin Aspirin Xanax 0.5 Xanax 0.5 No 1{table BID Xanax 0.5 MG MG t} MG Benazepril Benazepril No 1{table QD Benazepril HCl 10 MG HCl 10 MG t} HCl 10 MG Pantoprazol Pantoprazol No 1{table QD Pantoprazo e Sodium 40 e Sodium 40 t} le Sodium MG MG 40 MG Omeprazole Omeprazole No Omeprazole 40 MG 40 MG 40 MG Atorvastati Atorvastati No Atorvastat n Calcium n Calcium in Calcium Mirtazapine Mirtazapine No 1{table QD Mirtazapin 30 MG 30 MG [id number] e 30 MG dtime} Low-Dose Low-Dose No Low-Dose Aspirin Aspirin Aspirin [...] Tamsulosin HCl 0.4 MG HCl 0.4 MG 05-28 les} HCl 0.4 MG 00:00 :00 Tamsulosin Tamsulosin 2021- No 1{capsu QD Tamsulosin HCl 0.4 MG HCl 0.4 MG -19 le} HCl 0.4 MG 00:00 :00 Immunizations Ordered Filled Immunization Date Status Comments Sour e Immunization Name Name Bupivicaine Fitzhugh Bupivicaine Fitzhugh 2020-08-20 Completed [facility] - 15:03:00 [facility] Bupivicaine Fitzhugh Bupivicaine Fitzhugh 2020-08-20 Completed [facility] - 15:03:00 [facility] Bupivicaine Fitzhugh Bupivicaine Fitzhugh 2020-08-20 [facility]pleted [facility] Bupivicaine Fitzhugh Bupivicaine Fitzhugh 2020-08-20 Completed [facility]00 [facility] Bupivicaine Fitzhugh Bupivicaine Fitzhugh 2020-08-20 Completed [facility] 15:03[facility]00 [facility] Bupivicaine Fitzhugh Bupivicaine Fitzhugh 2020-08-20 Completed [facility] 15:03[facility]00 [facility] Bupivicaine Fitzhugh Bupivicaine Fitzhugh 2020-08-20 Completed [facility]:03[facility]00 [facility] Bupivicaine Fitzhugh Bupivicaine Fitzhugh 2020-08-20 Completed [facility]:03[facility]00 [facility] Bupivicaine Fitzhugh Bupivicaine Fitzhugh 2020-08-20 Completed [facility] 15:03:00 [facility] Bupivicaine Fitzhugh Bupivicaine Fitzhugh 2020-08-20 Completed [facility]:03[facility]00 [facility] Bupivicaine Fitzhugh Bupivicaine Fitzhugh 2020-08-20 Completed [facility]:03[facility]00 [facility] Kenalog Kenalog 2020-08-20 Completed [facility] - (Triamcinolone) (Triamcinolone) 15:02:00 [facility] Kenalog Kenalog 2020-08-20 Completed [facility] (Triamcinolone) (Triamcinolone) 15:02:00 [facility] Kenalog Kenalog 2020-08-20 Completed [facility] (Triamcinolone) (Triamcinolone) 15:02:00 [facility] Kenalog Kenalog 2020-08-20 Completed [facility] (Triamcinolone) (Triamcinolone) 15:02:00 [facility] Elsy Chin 2020-08-20 Completed [facility] (Triamcinolone) (Triamcinolone) 15:02:00 [facility] Elsy Chin 2020-08-20 Completed [facility] (Triamcinolone) (Triamcinolone) 15:02:00 [facility] Elsy Chin 2020-08-20 Completed [facility] (Triamcinolone) (Triamcinolone) 15:02:00 [facility] Elsy Chin 2020-08-20 Completed [facility] (Triamcinolone) (Triamcinolone) 15:02:00 [facility] Elsy Chin 2020-08-20 Completed [facility] (Triamcinolone) (Triamcinolone) 15:02:00 [facility] Elsy Chin 2020-08-20 Completed [facility] (Triamcinolone) (Triamcinolone) 15:02:00 [facility] Elsy Chin 2020-08-20 Completed [facility] (Triamcinolone) (Triamcinolone) 15:02:00 [facility] TDAP 2018-03-30 Completed [facility] 00:00:00 [facility] Zoster Vaccine 2018-03-30 Completed University of Recombinant 00:00:00 [facility] TDAP 2018-03-30 Completed University of 00:00:00 [facility] Zoster Vaccine 2018-03-30 Completed University of Recombinant 00:00:00 [facility] TDAP 2018-03-30 Completed University of 00:00:00 [facility] Zoster Vaccine 2018-03-30 Completed University of Recombinant 00:00:00 [facility] TDAP 2018-03-30 Completed University of 00:00:00 [facility] Zoster Vaccine 2018-03-30 Completed University of Recombinant 00:00:00 [facility] TDAP 2018-03-30 Completed University of 00:00:00 [facility] Zoster Vaccine 2018-03-30 Completed University of Recombinant 00:00:00 [facility] TDAP 2018-03-30 Completed University of 00:00:00 [facility] Zoster Vaccine 2018-03-30 Completed University of Recombinant 00:00:00 [facility] TDAP 2018-03-30 Completed [facility] 00:00:00 [facility] Zoster Vaccine 2018-03-30 Completed [facility] Recombinant 00:00:00 [facility] TDAP 2018-03-30 Completed [facility] 00:00:00 [facility] Zoster Vaccine 2018-03-30 Completed [facility] Recombinant 00:00:00 [facility] TDAP 2018-03-30 Completed [facility] 00:00:00 [facility] Zoster Vaccine 2018-03-30 Completed [facility] Recombinant 00:00:00 [facility] TDAP 2018-03-30 Completed [facility] 00:00:00 [facility] Zoster Vaccine 2018-03-30 Completed [facility] Recombinant 00:00:00 [facility] TDAP 2018-03-30 Completed [facility] 00:00:00 [facility] Zoster Vaccine 2018-03-30 Completed [facility] Recombinant 00:00:00 [facility] TDAP 2018-03-30 Completed [facility] 00:00:00 [facility] Zoster Vaccine 2018-03-30 Completed [facility] of Recombinant 00:00:00 [facility] TDAP 2018-03-30 Completed [facility] 00:00:00 [facility] Zoster Vaccine 2018-03-30 Completed [facility] Recombinant 00:00:00 [facility] TDAP 2018-03-30 Completed [facility] 00:00:00 [facility] Zoster Vaccine 2018-03-30 Completed [facility] Recombinant 00:00:00 [facility] TDAP 2018-03-30 Completed [facility] 00:00:00 [facility] Zoster Vaccine 2018-03-30 Completed [facility] Recombinant 00:00:00 [facility] TDAP 2018-03-30 Completed [facility] 00:00:00 [facility] Zoster Vaccine 2018-03-30 Completed [facility] Recombinant 00:00:00 [facility] TDAP 2018-03-30 Completed [facility] 00:00:00 [facility] Zoster Vaccine 2018-03-30 Completed [facility] Recombinant 00:00:00 [facility] TDAP 2018-03-30 Completed [facility] 00:00:00 [facility] Zoster Vaccine 2018-03-30 Completed [facility] Recombinant 00:00:00 [facility] TDAP 2018-03-30 Completed [facility] 00:00:00 [facility] Zoster Vaccine 2018-03-30 Completed [facility] of Recombinant 00:00:00 [facility] TDAP 2018-03-30 Completed [facility] 00:00:00 [facility] Zoster Vaccine 2018-03-30 Completed [facility] of Recombinant 00:00:00 [facility] TDAP 2018-03-30 Completed [facility] 00:00:00 [facility] Zoster Vaccine 2018-03-30 Completed [facility] Recombinant 00:00:00 [facility] TDAP 2018-03-30 Completed [facility] 00:00:00 [facility] Zoster Vaccine 2018-03-30 Completed [facility] Recombinant 00:00:00 [facility] TDAP 2018-03-30 Completed [facility] 00:00:00 [facility] Zoster Vaccine 2018-03-30 Completed [facility] Recombinant 00:00:00 [facility] TDAP 2018-03-30 Completed [facility] 00:00:00 [facility] Zoster Vaccine 2018-03-30 Completed [facility] Recombinant 00:00:00 [facility] TDAP 2018-03-30 Completed [facility] 00:00:00 [facility] Zoster Vaccine 2018-03-30 Completed [facility] Recombinant 00:00:00 [facility] TDAP 2018-03-30 Completed [facility] 00:00:00 [facility] Zoster Vaccine 2018-03-30 Completed [facility] Recombinant 00:00:00 [facility] TDAP 2018-03-30 Completed [facility] 00:00:00 [facility] Zoster Vaccine 2018-03-30 Completed [facility] of Recombinant 00:00:00 [facility] TDAP 2018-03-30 Completed [facility] of 00:00:00 [facility] Zoster Vaccine 2018-03-30 Completed [facility] of Recombinant 00:00:00 [facility] TDAP 2018-03-30 Completed [facility] of 00:00:00 [facility] Zoster Vaccine 2018-03-30 Completed [facility] Recombinant 00:00:00 [facility] TDAP 2018-03-30 Completed [facility] 00:00:00 [facility] Zoster Vaccine 2018-03-30 Completed [facility] Recombinant 00:00:00 [facility] TDAP 2018-03-30 Completed [facility] 00:00:00 [facility] Zoster Vaccine 2018-03-30 Completed [facility] Recombinant 00:00:00 [facility] TDAP 2018-03-30 Completed [facility] 00:00:00 [facility] Zoster Vaccine 2018-03-30 Completed [facility] Recombinant 00:00:00 [facility] TDAP 2018-03-30 Completed [facility] 00:00:00 [facility] Zoster Vaccine 2018-03-30 Completed [facility] of Recombinant 00:00:00 [facility] Zoster Vaccine 2017-11-24 Completed [facility] Recombinant 00:00:00 [facility] Zoster Vaccine 2017-11-24 Completed [facility] Recombinant 00:00:00 [facility] Zoster Vaccine 2017-11-24 Completed [facility] Recombinant 00:00:00 [facility] Zoster Vaccine 2017-11-24 Completed [facility] Recombinant 00:00:00 [facility] Zoster Vaccine 2017-11-24 Completed University of Recombinant 00:00:00 [facility] Zoster Vaccine 2017-11-24 Completed [facility] of Recombinant 00:00:00 [facility] Zoster Vaccine 2017-11-24 Completed [facility] of Recombinant 00:00:00 [facility] Zoster Vaccine 2017-11-24 Completed [facility] Recombinant 00:00:00 [facility] Zoster Vaccine 2017-11-24 Completed [facility] of Recombinant 00:00:00 [facility] Zoster Vaccine 2017-11-24 Completed [facility] Recombinant 00:00:00 [facility] Zoster Vaccine 2017-11-24 Completed [facility] of Recombinant 00:00:00 [facility] Zoster Vaccine 2017-11-24 Completed [facility] of Recombinant 00:00:00 [facility] Zoster Vaccine 2017-11-24 Completed [facility] Recombinant 00:00:00 [facility] Zoster Vaccine 2017-11-24 Completed [facility] Recombinant 00:00:00 [facility] Zoster Vaccine 2017-11-24 Completed [facility] of Recombinant 00:00:00 [facility] Zoster Vaccine 2017-11-24 Completed [facility] Recombinant 00:00:00 [facility] Zoster Vaccine 2017-11-24 Completed [facility] Recombinant 00:00:00 [facility] Zoster Vaccine 2017-11-24 Completed [facility] Recombinant 00:00:00 [facility] Zoster Vaccine 2017-11-24 Completed [facility] of Recombinant 00:00:00 [facility] Zoster Vaccine 2017-11-24 Completed [facility] Recombinant 00:00:00 [facility] Zoster Vaccine 2017-11-24 Completed [facility] Recombinant 00:00:00 [facility] Zoster Vaccine 2017-11-24 Completed [facility] Recombinant 00:00:00 [facility] Zoster Vaccine 2017-11-24 Completed [facility] Recombinant 00:00:00 [facility] Zoster Vaccine 2017-11-24 Completed [facility] Recombinant 00:00:00 [facility] Zoster Vaccine 2017-11-24 Completed [facility] Recombinant 00:00:00 [facility] Zoster Vaccine 2017-11-24 Completed [facility] Recombinant 00:00:00 [facility] Zoster Vaccine 2017-11-24 Completed [facility] Recombinant 00:00:00 [facility] Zoster Vaccine 2017-11-24 Completed [facility] of Recombinant 00:00:00 [facility] Zoster Vaccine 2017-11-24 Completed [facility] Recombinant 00:00:00 [facility] Zoster Vaccine 2017-11-24 Completed [facility] of Recombinant 00:00:00 [facility] Zoster Vaccine 2017-11-24 Completed [facility] of Recombinant 00:00:00 [facility] Zoster Vaccine 2017-11-24 Completed [facility] Recombinant 00:00:00 [facility] Zoster Vaccine 2017-11-24 Completed [facility] Recombinant 00:00:00 [facility] Vital Signs Vital Name Observation Time Observation Value Comments Source HEIGHT 2021-05-12 11:45:00 172.7 cm WEIGHT 2021-05-12 11:45:00 92.534 kg Systolic blood 2023-02-07 18:33:00 135 mm[Hg] Univer sity of pressure [facility] Diastolic blood 2023-02-07 18:33:00 69 mm[Hg] Unive rsity of pressure [facility] Heart rate 2023-02-07 18:33:00 106 /min Universi ty of [facility] Respiratory rate 2023-02-07 18:33:00 18 /min Univ ersity of [facility] Body height 2023-02-07 18:33:00 172.7 cm Universi ty [facility] Body weight 2023-02-07 18:33:00 98.[address] [facility] BMI 2023-02-07 18:33:00 32.89 kg/m2 Universi ty [facility] Oxygen saturation in 2023-02-07 18:33:00 96 /min [facility] Arterial blood by [facility] Pulse oximetry Branch Systolic blood 2022-09-21 21:07:00 114 mm[Hg] Univer sity of pressure [facility] Diastolic blood 2022-09-21 21:07:00 75 mm[Hg] Unive rsity of pressure [facility] Heart rate 2022-09-21 21:07:00 98 /min Universi ty of [facility] Body height 2022-09-21 21:07:00 172.7 cm Universi ty of [facility] Body weight 2022-09-21 21:07:00 94.031 kg Universi ty of [facility] BMI 2022-09-21 21:07:00 31.52 kg/m2 Universi ty of [facility] Body height 2022-07-26 19:41:00 172.7 cm Universi ty of [facility] Body weight 2022-07-26 19:41:00 95.709 kg Universi ty of [facility] BMI 2022-07-26 19:41:00 32.08 kg/m2 Universi ty of [facility] Body height 2022-06-15 20:51:00 172.7 cm Universi ty of [facility] Body weight 2022-06-15 20:51:00 95.981 kg Universi ty of [facility] BMI 2022-06-15 20:51:00 32.17 kg/m2 Universi ty of [facility] Systolic blood 2022-02-16 18:09:00 120 mm[Hg] Univer sity of pressure [facility] Diastolic blood 2022-02-16 18:09:00 79 mm[Hg] Unive rsity of pressure [facility] Heart rate 2022-02-16 18:09:00 75 /min Universi ty of [facility] Body height 2022-02-16 18:09:00 172.7 cm Universi ty of [facility] Body weight 2022-02-16 18:09:00 94.348 kg Universi ty of [facility] BMI 2022-02-16 18:09:00 31.63 kg/m2 Universi ty of [facility] Oxygen saturation in 2022-02-16 18:09:00 97 /min [facility] Arterial blood by [facility] Pulse oximetry Branch height 2021-11-11 09:45:00 68.0 [in_i] [facility] weight 2021-11-11 09:45:00 201.4 [lb_av] Common [facility] temperature 2021-11-11 09:45:00 98.2 [degF] [facility] bmi 2021-11-11 09:45:00 30.62 kg/m2 [facility] oximetry 2021-11-11 09:45:00 98 % [facility] respiratory rate 2021-11-11 09:45:00 16 /min [facility] blood pressure 2021-11-11 09:45:00 110 mm[Hg] [facility] - systolic [facility] blood pressure 2021-11-11 09:45:00 79 mm[Hg] [facility] - diastolic [facility] height 2021-05-05 11:15:00 68.0 [in_i] [facility] weight 2021-05-05 11:15:00 203.2 [lb_av] [facility] temperature 2021-05-05 11:15:00 97.6 [degF] Common [facility] bmi 2021-05-05 11:15:00 30.89 kg/m2 [facility] oximetry 2021-05-05 11:15:00 98 % Common [facility] blood pressure 2021-05-05 11:15:00 111 mm[Hg] [facility] - systolic [facility] blood pressure 2021-05-05 11:15:00 72 mm[Hg] [facility] - diastolic [facility] height 2021-04-06 10:30:00 68.0 [in_i] [facility] weight 2021-04-06 10:30:00 194 [lb_av] [facility] temperature 2021-04-06 10:30:00 97.3 [degF] [facility] bmi 2021-04-06 10:30:00 29.49 kg/m2 [facility] blood pressure 2021-04-06 10:30:00 120 mm[Hg] [facility] - systolic [facility] blood pressure 2021-04-06 10:30:00 86 mm[Hg] [facility] - diastolic [facility] height 2021-03-09 13:00:00 68.0 [in_i] [facility] weight 2021-03-09 13:00:00 199.4 [lb_av] [facility] bmi 2021-03-09 13:00:00 30.32 kg/m2 [facility] blood pressure 2021-03-09 13:00:00 130 mm[Hg] [facility] - systolic [facility] blood pressure 2021-03-09 13:00:00 84 mm[Hg] [facility] - diastolic [facility] height 2021-01-21 13:00:00 68.0 [in_i] [facility] weight 2021-01-21 13:00:00 194 [lb_av] [facility] temperature 2021-01-21 13:00:00 97.3 [degF] [facility] bmi 2021-01-21 13:00:00 29.49 kg/m2 [facility] blood pressure 2021-01-21 13:00:00 132 mm[Hg] [facility] - systolic [facility] blood pressure 2021-01-21 13:00:00 84 mm[Hg] Common [facility] - diastolic [facility] Procedures Procedure Date / Time Performing Clinician Source Performed DSU PRE-OP 2022-09-21 05:01:00 Doctor Unassigned, No [facility] PATIENT QUESTIONNAIRE 2022-09-12 05:01:00 Doctor Unassigned, No [facility] REFERRAL- 2022-06-21 06:01:00 Doctor Unassigned, No Univer sity [facility] REQUEST/RESPONSE Name [facility] REFERRAL- 2022-06-15 06:01:00 Doctor Unassigned, No [facility] REQUEST/RESPONSE Name [facility] MEDICAL 2022-04-11 05:01:00 [facility] Unassigned, No [facility] RELEASE/CLEARANCE FORMS Name [facility] Plan of Care Planned Activity Planned Date Details Comments Source Future Scheduled 2028-03-30 DTAP/TDAP/TD VACCINES [facility] Test 00:00:00 (2 - Td or Tdap) [code Medic al Center = DTAP/TDAP/TD VACCINES (2 - Td or Tdap)] Future Scheduled 2023-02-17 Screening for [facility] Test 08:40:57 malignant neoplasm of colon (procedure) [code = 404246428] Future Scheduled 2023-02-17 [facility]57 malignant neoplasm of colon (procedure) [code = 025953492] Future Scheduled 2023-02-17 SHINGLES VACCINES (1 [facility] Test 08:40:57 of 2) [code = SHINGLES VACCINES (1 of 2)] Future Scheduled 2023-02-17 COVID-19 VACCINE (3 - [facility] Test 08:40:57 Moderna series) [code = COVID-19 VACCINE (3 - Moderna series)] Future Scheduled 2023-02-17 65+ PNEUMOCOCCAL [facility] Test 08:40:57 VACCINE (2 - PPSV23 if available, else PCV20) [code = 65+ PNEUMOCOCCAL VACCINE (2 - PPSV23 if available, else PCV20)] Future Scheduled 2023-02-17 INFLUENZA VACCINE (#1) [facility] Test 08:40:57 [code = INFLUENZA VACCINE (#1)] Future Scheduled 2023-02-17 Screening for [facility] Test 08:40:57 malignant neoplasm of colon (procedure) [code = 214795841] Future Scheduled 2023-02-17 Screening for [facility] Test 08:40:57 malignant neoplasm of colon (procedure) [code = 123165118] Future Scheduled 2023-02-17 Screening for [facility] Test 08:40:57 malignant neoplasm of colon (procedure) [code = 053034762] Future Scheduled 2023-02-17 Hepatitis C screening [facility] Test 08:40:57 (procedure) [code = 839133453] Future Scheduled 2023-02-[address] [facility] Test 00:00:00 (Season Ended) [code = [facility] Center INFLUENZA VACCINE (Season Ended)] Future Scheduled 2022-09-21 Hepatitis C screening [facility] Test 16:02:03 (procedure) [code = 499463078] Future Scheduled 2022-09-21 COLONOSCOPY SCREENING [facility] Test 16:02:03 [code = COLONOSCOPY SCREENING] Future Scheduled 2022-09-21 SHINGLES VACCINES (1 [facility] Test 16:02:03 of 2) [code = SHINGLES VACCINES (1 of 2)] Future Scheduled 2022-09-21 COVID-19 VACCINE (3 - [facility] Test 16:02:03 Booster for Moderna series) [...] [facility] Center colon (procedure) [code = 315385240] Future Scheduled [address] [facility] malignant ne[facility] of [facility] colon (procedure) [code = 192062972] Future Scheduled [address] [facility] Test 00:[facility]00 malignant neoplasm [facility] colon (procedure) [code = 136690591] Future Scheduled [address] [facility] Test 00:00:00 malignant neoplasm of [facility]ica [facility] Center colon (procedure) [code = 978703284] Future Scheduled 1955 Sigmoidoscopy [facility] Test [facility]] Medical Cente r Encounters Start End Encounter Admission Attending Care Care Encounter Source Date/Time Date/Time Type Type Clinicians Facility Department ID 2023-02-08 Outpatient SEBASTIÁN JACKSON [facility] SOR [id number] Univers 14:33:07 SEBASTIÁN [facility] 2022-09-22 Outpatient Nadir [facility]ST [facility] S[facility] [id number] Univers 08:57:16 [facility] 2022-06-23 Outpatient Nadir [facility] SOR [id number] Univers 08:08:58 [facility] 2022-02-03 Outpatient [facility] [id number] [place] 14:40:28 [id number] [facility] 2022-01-19 Outpatient [facility] [id number] [place] 14:10:01 [id number] [facility] 2022-01-18 Outpatient [facility] [id number] [place] 08:54:35 [id number] [facility] 2022-01-17 Outpatient [facility] [id number] [place] 15:45:55 [id number] [facility] 2021-12-14 Outpatient [facility] [id number] [place] 09:37:47 [id number] [facility] 2021-11-09 Outpatient [facility] [id number] [place] 13:05:57 [id number] [facility] 2021-11-01 Outpatient [facility] [id number] [place] 09:58:28 [id number] [facility] 2021-10-15 Outpatient [facility] [id number] [place] 16:27:49 [id number] [facility] 2021-09-27 Outpatient [facility] [id number] [place] 09:57:26 [id number] Health 2021-07-[address] [facility] Common 13:39:02 Shaun [id number] [facility] 2021-07-[address], [facility] Common 13:13:51 Shaun [id number] [facility] 2021-04-10 Emergency [facility] [id number] [facility] ROSMERY MURPHY [facility] Surgery [id number] [facility] 08:07:25 MOHAMED 2023-02-10 2023-02-10 Prep For Slime [facility] [id number] Univers 00:00:00 00:00:00 [facility] Hospital 350.1.13.10 it y of [place] 4.2.7.2.686 Clarence as RAINA?BLEA [phone] Nh kristin[address] MEDICAL OFFICE BUILDING 2023-02-07 2023-02-07 Office [facility] 1.2.840.114 [id number] Univers 13:45:00 14:00:00 Visit [facility] 350.1.13.10 it y of [place] 4.2.7.2.686 Clarence as RAINA?BLEA [phone] [address] OFFICE [facility] 2023-02-07 2023-02-07 Outpatient Nadir [facility] [id number] Univers 13:45:00 13:45:00 [facility] 2022-10-11 2022-10-11 Outpatient Nadir [facility] [id number] Univers 14:15:00 14:15:00 [facility] 2022-10-10 2022-10-10 Outpatient Nadir [facility] [id number] Univers 15:30:00 15:30:00 [facility] 2022-09-29 2022-09-29 Outpatient Nadir [facility] [id number] Univers 14:15:00 14:15:00 [facility] 2022-09-26 2022-09-26 Telephone [facility] 1.2.840.114 [id number] Univers 00:00:00 00:00:00 Sebastián Denny HEALTH 350.1.13.10 it y of [place] 4.2.7.2.686 Clarence as RAINA?BLEA [phone] Nh amish NUÑEZ [address] [place] [address] OFFICE [facility] 2022-09-23 2022-09-23 Outpatient R [facility] [id number] Univers 08:00:00 08:00:00 SEBASTIÁN rober [facility] 2022-09-22 2022-09-22 Prep [facility] 1.2.840.114 [id number] Univers 00:00:00 00:00:00 Surgery Sebastián Denny HEALTH 350.1.13.10 it y of [place] 4.2.7.2.686 Clarence as RAINA?BLEA [phone] Nh amish NUÑEZ [address] [place] [address] OFFICE [facility] 2022-09-22 2022-09-22 Telephone [facility] 1.2.840.114 [id number] Univers 00:00:00 00:00:00 Sebastián Denny HEALTH 350.1.13.10 it y of [place] 4.2.7.2.686 Clarence as RAINA?BLEA [phone] Nh amish NUÑEZ [address] [place] [address] OFFICE [facility] 2022-09-21 2022-09-21 Office Slime [facility] 1.2.840.114 [id number] Univers 16:15:00 16:30:00 Visit [facility] 350.1.13.10 it y of [place] 4.2.7.2.686 Clarence as RAINA?BLEA [phone] Nh amish NUÑEZ [address] [place] [address] MEDICAL OFFICE [facility] 2022-09-21 2022-09-21 Outpatient R SLIME [facility] [id number] Univers 16:15:00 16:15:[address] [facility] 2022-09-21 2022-09-21 Orders Doctor CLEMENTE 1.2.840.114 [id number] Univers 00:00:00 00:00:00 Only Unassigned, JANNET 350.1.13.10 ity of [place] [facility] 4.2.7.2.686 Clarence as [phone] [address] 2022-09-12 2022-09-12 Outpatient R SLIME [facility] [id number] Univers 14:45:00 14:45:[address] [facility] 2022-09-12 2022-09-12 Orders Doctor CHYNA 1.2.840.114 [id number] Univers 00:00:00 00:00:00 Only Unassigned, JANNET 350.1.13.10 ity of [facility] 4.2.7.2.686 Clarence as [phone] [address] 2022-09-07 2022-09-07 Outpatient R [facility] [id number] Univers 13:15:00 13:15:00 SEBASTIÁN ovalle [facility] 2022-08-22 2022-08-22 Telephone Slime [facility] 1.2.847.204 [id number] Univers 00:00:00 00:00:00 [facility] 350.1.13.10 it y of [place] 4.2.7.2.686 Clarence as RAINA?BLEA [phone] Nh dical KNEY [address] MEDICAL OFFICE BUILDING 2022-08-18 2022-08-18 Ancillary Wellington Mcrae [facility] 1.2.840. 114 [id number] Univers 15:15:00 16:00:00 Visit Sebastián Mast 350.1.13.10 ity of [place].2.7.2.[place] [phone] Nh dical NAL [address] [facility] 2022-08-18 2022-08-18 Outpatient R [facility] [id number] Univers 15:15:00 15:15:00 SEBASTIÁN ovalle [facility] 2022-08-16 2022-08-16 Ancillary Wellington Mcrae [facility] 1.2.840. 114 [id number] Univers 15:15:00 16:00:00 Visit Sebastián Mast 350.1.13.10 ity of [place] [phone] Me dical NAL [address] [facility] 2022-08-01 2022-08-01 Ancillary Wellington Mcrae [facility] 1.2.840. 114 [id number] Univers 15:15:00 15:48:31 Visit Kezia Sebastián Denisha VEENGAS 350.1.13.10 ity [facility] 4.2.7.2.[place] [phone] Nh dical NAL [address] [facility] 2022-07-27 2022-07-27 Ancillary Wellington Mcrae [facility] 1.2.840. 114 [id number] Univers 15:15:00 15:52:19 Visit Kezia Sebastiánluiz VENEGAS 350.1.13.10 ity [facility] 4.2.7.2.[place] [phone] Nh dical NAL [address] [facility] 2022-07-26 2022-07-26 Office Slime [facility] 1.2.840.114 [id number] Univers 13:45:00 14:00:00 Visit [facility] 350.1.13.10 it y of [place] 4.2.7.2.686 Clarence as RAINA?BLEA [phone] Nh amish [address] OFFICE [facility] 2022-07-26 2022-07-26 Outpatient Nadir [facility] [id number] Univers 13:45:00 13:45:00 [facility] 2022-07-25 2022-07-25 Ancillary Thor Wellington Adriana [facility] 1.2.840. 114 [id number] Univers 15:15:00 15:41:51 Visit Sebastián Mast 350.1.13.10 ity [facility] 4.2.7.2.[place] [phone] Nh dical NAL [address] [facility] 2022-07-25 2022-07-25 Outpatient R SLIME [facility] [id number] Univers 13:30:00 13:30:00 [facility] 2022-07-19 Outpatient R KEZIA [facility] [id number] Univers 13:45:00 14:47:54 [facility]22-07-192022-07-19 Ancillary Valente Ivett Brown [facility] 1 .2.840.114 [id number] Univers 13:45:00 14:47:54 Visit Fernando DesaiCHALO 350.1.13.10 ity of Sebastián [facility] 4.2.7.2.[address] [facility] [place] [phone] Nh amish SERRANO [address] [facility] 2022-07-08 2022-07-08 Outpatient R KEZIA [facility] [id number] Univers 08:15:00 08:15:00 SEBASTIÁN itrober [facility] 2022-07-07 2022-07-07 Telephone [facility] 1.2.840.114 [id number] Univers 00:00:00 00:00:00 Sebastián Denny [facility] 350.1.13.10 it y of [place] 4.2.7.2.686 Clarence as RAINA?BLEA [phone] Nh amish NUÑEZ 198 [facility] OFFICE [facility] 2022-07-01 2022-07-01 Telephone [facility] 1.2.840.114 [id number] Univers 00:00:00 00:00:00 Sebastián Denny HEALTH 350.1.13.10 it y of [place] 4.2.7.2.686 Clarence as RAINA?BLEA [id number] Nh amish NUÑEZ 198 [facility] 2022-06-30 2022-06-30 Telephone [facility] 1.2.840.114 [id number] Univers 00:00:00 00:00:00 Sebastián Denny HEALTH 350.1.13.10 it y of [place] 4.2.7.2.686 Clarence as RAINA?BLEA [phone] Nh dictheresa NUÑEZ 198 [facility] OFFICE [facility] 2022-06-23 2022-06-23 Telephone [facility] 1.2.840.114 [id number] Univers 00:00:00 00:00:00 Sebastián Denny HEALTH 350.1.13.10 it y of [place] 4.2.7.2.686 Clarence as RAINA?BLEA [phone] Nh dictheresa NUÑEZ 198 [facility] OFFICE [facility] 2022-06-21 2022-06-21 Telephone [facility] 1.2.490.108 [id number] Univers 00:00:00 00:00:00 Benny Patel HEALTH 350.1.13.10 it y of [place] 4.2.7.2.686 Clarence as RAINA?BLEA [phone] Nh amish NUÑEZ 198 [facility] OFFICE [facility] 2022-06-21 2022-06-21 Prep For Kezia [facility] 1.2.840.114 [id number] Univers 00:00:00 00:00:00 Surgery Sebastián Denny HEALTH 350.1.13.10 it y of [place] 4.2.7.2.686 Clarence as RAINA?BLEA [phone] Nh amish MURRAY[address] 2022-06-21 2022-06-21 Orders Doctor CHYNA 1.2.840.114 [id number] Univers 00:00:00 00:00:00 Only Unassigned, JANNET 350.1.13.10 ity of [place] [facility] 4.2.7.2.686 Clarence as [phone] [address] 2022-06-15 2022-06-15 [facility] [id number] Univers 15:00:00 15:24:50 [facility]15 2022-06-15 Office Benny Palencia [facility] 1.2.840.114 [id number] Univers 15:00:00 15:15:00 Visit Sebastián Mast 350.1.13.10 ity of [place] 4.2.7.2.686 Clarence as RAINA?BLEA [phone] Nh amish [address] 2022-06-15 2022-06-15 Orders Doctor CHYNA 1.2.840.114 [id number] Univers 00:00:00 00:00:00 Only Unassigned, JANNET 350.1.13.10 ity of [place] [facility] 4.2.7.2.686 Clarence as [phone] [address] 2022-06-02 2022-06-02 [facility] [id number] Univers 10:00:00 10:00:00 SEBASTIÁN ovalle [facility] 2022-04-26 2022-04-26 Telephone [facility] 1.2.840.114 [id number] Univers 00:00:00 00:00:00 Sebastián MOODY 350.1.13.10 [facility] 4.2.7.2.686 Clarence as RAINA?BLEA [phone] Nh amish NUÑEZ [address] MEDICAL OFFICE [facility] 2022-04-11 2022-04-11 Orders Doctor CHYNA 1.2.840.114 [id number] Univers 00:00:00 00:00:00 Only Unassigned, JANNET 350.1.13.10 ity of [place] [facility] 4.2.7.2.686 Clarence as [phone] [facility] [address] 2022-02-16 2022-02-16 Office [facility] 1.2.280.071 [id number] Univers 13:15:00 13:30:00 Visit Sebastián MOODY 350.1.13.10 it y of [place] 4.2.7.2.686 Clarence as RAINA?BLEA [phone] Nh amish NUÑEZ [address] [place] [address] OFFICE [facility] 2022-02-16 2022-02-16 [facility] [id number] Univers 13:15:00 13:15:00 SEBASTIÁN ovalle [facility] 2022-01-31 2022-01-31 [facility] [id number] Univers 11:13:58 23:59:00 SEBASTIÁN ovalle [facility] 2022-01-31 2022-01-31 [facility] 1.2.840.114 [id number] Univers 10:50:00 23:59:00 Encounter Sebastián VENEGAS 350.1.13.10 ity of [place]2.[place].2.[place] [phone] [facility] [address] 2022-01-31 2022-01-31 Outpatient [facility] [id number] Univers 13:45:00 13:45:00 SEBASTIÁN ovalle [facility] 2022-01-27 2022-01-27 [facility] [id number] Univers 10:06:26 23:59:00 SEBASTIÁN [facility] 2022-01-27 2022-01-27 Office [facility] 1.2.575.782 [id number] Univers 10:00:00 10:33:21 Visit Sebastián [facility] 350.1.13.10 it y of [place] 4.2.7.2.686 Clarence as RAINA?BLEA [phone] Nh dical [address] MEDICAL OFFICE [facility] 2022-01-27 2022-01-27 Out[facility] [id number] Univers 10:06:26 10:06:26 SEBASTIÁN [facility] 2022-01-27 2022-01-27 Orders Doctor CHYNA 1.2.840.114 [id number] Univers 00:00:00 00:00:00 Only Unassigned, JANNET 350.1.13.10 ity of [place] [facility] 4.2.7.2.686 Clarence as [phone] [address] 2021-12-31 2021-12-31 Orders [facility] 1.2.840.1 [id number] Methodi 00:00:00 00:00:00 Only Jamia gabriel 86116.1.1 769 s t D 3.430.2.7 Hospit a .3.250618 l .8 2021-12-07 2021-12-07 Orders [facility] 1.2.840.1 [id number] Methodi 00:00:00 00:00:00 Only Jamia gabriel 63204.1.1 466 s t D 3.430.2.7 Hospit a .3.138117 l .8 2021-11-24 2021-11-24 (TEL) STLMLC STLMLC [id number] Co mmon 00:00:00 00:00:00 [facility] 2021-11-17 2021-11-17 (PROC) STLMLC STLMLC [id number] Co mmon 00:00:00 00:00:00 Procedure Spir [facility] 2021-11-11 2021-11-11 OFFICE STLMLC STLMLC [id number] Co mmon 00:00:00 00:00:00 VISIT Spirit ESTAB PT - CHI LEVEL 2 [facility] 2021-09-09 2021-09-09 Outpatient GALATI, [facility] [id number] [address] [place] 00:00:00 00:00:00 BRAULIO [address] 2021-09-09 2021-09-09 Outpatient GALATI, [facility] [id number] [address] [place] 00:00:00 00:00:00 BRAULIO [address] 2021-09-09 2021-09-09 Outpatient GALATI, [facility] [id number] [address] [place] 00:00:00 00:00:00 BRAULIO 654 [facility] i 2021-09-09 2021-09-09 Outpatient GALATI, [facility] [id number] [address] [place] 00:00:00 00:00:00 BRAULIO 853 [facility] i 2021-09-09 2021-09-09 Outpatient GALATI, [facility] [id number] [address] [place] 00:00:00 00:00:00 BRAULIO 983 Method i 2021-07-21 2021-07-31 Inpatient E DOMINICK, [facility] MED [id number] [facility] 07:58:00 12:37:00 BRINDA 2021-05-12 2021-05-12 Outpatient EL SLE SLE [id number] SLE 12:05:02 23:59:00 2021-05-05 2021-05-05 OFFICE STLMLC STLMLC [id number] Co mmon 00:00:00 00:00:00 VISIT Spirit ESTAB PT - CHI LEVEL 2 [facility] 2021-05-04 2021-05-04 (TEL) STLMLC STLMLC [id number] Co mmon 00:00:00 00:00:00 [facility] 2021-04-13 2021-04-13 Outpatient ROSMERY DELGADO, [facility] SLE [id number] SLE 00:00:00 00:00:00 LENCHO 2021-04-06 2021-04-06 (TEL) STLMLC STLMLC [id number] Co mmon 00:00:00 00:00:00 [facility] 2021-04-06 2021-04-06 OFFICE STLMLC STLMLC [id number] Co mmon 00:00:00 00:00:00 VISIT [facility] PT - CHI LEVEL 4 [facility] 2021-03-16 2021-03-16 (TEL) STLMLC STLMLC [id number] Co mmon 00:00:00 00:00:00 [facility] 2021-03-16 2021-03-16 (TEL) STLMLC STLMLC [id number] Co mmon 00:00:00 00:00:00 [facility] 2021-03-10 2021-03-10 (TEL) STLMLC STLMLC [id number] Co mmon 00:00:00 00:00:00 [facility] 2021-03-09 2021-03-09 OFFICE STLMLC STLMLC [id number] Co mmon 00:00:00 00:00:00 VISIT [facility] PT - CHI LEVEL 4 [facility] 2021-01-29 2021-01-29 (TEL) STLMLC STLMLC [id number] Co mmon 00:00:00 00:00:00 [facility] 2021-01-29 2021-01-29 (TEL) STLMLC STLMLC [id number] Co mmon 00:00:00 00:00:00 [facility] 2021-01-27 2021-01-27 OFFICE STLMLC STLMLC [id number] Co mmon 00:00:00 00:00:00 VISIT EST Spir it PT LEVEL 3 [facility] 2021-01-27 2021-01-27 (TEL) STLMLC STLMLC [id number] Co mmon 00:00:00 00:00:00 [facility] 2021-01-22 2021-01-22 (TEL) STLMLC STLMLC [id number] Co mmon 00:00:00 00:00:00 [facility] 2021-01-21 2021-01-21 OFFICE STLMLC STLMLC [id number] Co mmon 00:00:00 00:00:00 VISIT [facility] PT - CHI LEVEL 4 [facility] 2020-11-26 2020-11-26 Outpatient STLMLC STLMLC [id number] Common 00:00:00 00:00:00 [facility] 2020-11-20 2020-11-20 Outpatient STLMLC STLMLC [id number] Common 00:00:00 00:00:00 [facility] 2020-05-21 2020-05-22 Emergency Girish Taylor [facility] 1.2.840 .114 [id number] 19:04:00 18:10:00 Tasneem Shaw Yany 350.1.13.[address] [place] [address] [place] [address] [id number] [facility] 2020-05-21 2020-05-22 Emergency Girish Taylor [facility] 1.2.840 .114 [id number] [facility] 19:04:00 18:10:00 Tasneem Shaw [place] 350.1.13.10 ity of Renée Mustafa [place] 4.2.7.2.686 [facility] [phone] [address] 2019-12-01 2019-12-01 Refill Charmaine, [facility] 1.2.840.114 [id number] 00:00:00 00:00:00 Kit Venegas 350.1.13.10 [place] 4.2.7.2.686 Professio [phone] [address] 2019-12-01 2019-12-01 Reffabián Campos [facility] 1.2.840.114 [id number] [facility] 00:00:00 00:00:00 Kit Venegas 350.1.13.10 ity of [place]2.[place] [phone] Nh dical [address] 2019-11-08 2019-11-08 Reffabián Campos [facility] 1.2.840.114 [id number] 00:00:00 00:00:00 Kit Venegas 350.1.13.10 [place] 4.2.7.2.686 Professio [phone] [address] 2019-11-08 2019-11-08 Reffabián Campos [facility] 1.2.840.114 [id number] Univers 00:00:00 00:00:00 Kit Venegas 350.1.13.10 ity of [place].2.[place] [phone] [address] 2019-10-17 2019-10-17 Reffabián Campos, [facility] 1.2.840.114 [id number] 00:00:00 00:00:00 Kit Venegas 350.1.13.10 [place] 4.2.7.2.686 Professio [phone] [address] 2019-10-17 2019-10-17 Georgie Campos, [facility] 1.2.840.114 [id number] Univers 00:00:00 00:00:00 Kit Venegas 350.1.13.10 ity of [place] 4[place].2.[place] [phone] [address] 2019-09-16 2019-09-16 Reffabián Campos, [facility] 1.2.840.114 [id number] 00:00:00 00:00:00 Kit Venegas 350.1.13.10 [place] 4.2.7.2.686 Professio [id number] [address] 2019-09-16 2019-09-16 Georgie Campos, [facility] 1.2.840.114 [id number] Univers 00:00:00 00:00:00 Kit Venegas 350.1.13.10 ity of [place]2.[place] [phone] [address] 2019-07-18 2019-07-18 Georgie Campos, [facility] 1.2.840.114 [id number] 00:00:00 00:00:00 Kit Venegas 350.1.13.10 [place] 4.2.7.2.686 Professio [phone] [address] 2019-07-18 2019-07-18 Georgie Campos, [facility] 1.2.840.114 [id number] Univers 00:00:00 00:00:00 Kit Venegas 350.1.13.10 ity of [place]2.[place] [phone] [address] 2019-07-17 2019-07-17 [facility] 1.2.840.114 [id number] 00:00:00 00:00:00 Kit Tsaiton 350.1.13.10 [place] 4.2.7.2.686 Professio [phone] [address] 2019-07-17 2019-07-17 [facility] 1.2.840.114 [id number] Univers 00:00:00 00:00:00 Kit Tsaiton 350.1.13.10 ity of [place].2.[place] [phone] [address] 2019-05-27 2019-05-27 Outpatient R KIT CAMPOS [facility] [id number] Univers 11:00:00 13:00:07 [facility] 2018-10-30 2018-10-30 Orders Doctor CHYNA 1.2.840.114 [id number] 00:00:00 00:00:00 Only Unassigned, JANNET 350.1.13.10 [place] [facility] 4.2.7.2.686 [id number] 009 2018-10-30 2018-10-30 Orders Doctor CHYNA 1.2.840.114 [id number] Univers 00:00:00 00:00:00 Only Unassigned, JANNET 350.1.13.10 ity of [place] [facility] 4.2.7.2.686 Clarence as [phone] [address] Results Test Description Test Time Test Comments Results Result [facility] e Comments TISSUE EXAM 2019-04-15 Surgical Pathology 18:37:00 Report Case: [id number] Authorizing Provider: Lencho Delgado, Collected: 04/09/2019 Slime KELLY Ordering Location: [facility] Received: 04/09/2019 1223 PERIOPERATIVE SERVICES Pathologist: Jose Alfredo Dozier MD Specimen: Aortic Valve, AORTIC VALVE LEAFLET HEART, AORTIC VALVE, VALVULECTOMY:LEAFLETS WITH NODULAR CALCIFIC ATHEROSCLEROTIC THICKENING Signing Pathologist Direct Phone Line: [phone] ally signed by Jose Alfredo Dozier MD on 04/15/2019 at 6:37 [id number]; [id number]-emmssqfci aortic valve stenosisAortic valve leafletReceived fresh with patient's demographic information and surgical accession number are fragments of calcified valvular leaflet, 3.5 x 2 x up to 1 cm in greatest dimension. Dental Equipment Repairer section submitted in A1 for decalcification. HL/plPerformed [...] = 413) 0 /100 WBC 0 -0 [id number] 04:42:00 Test Item Value Reference Range Interpretation Comments MAGNESIUM (BEAKER) (test code = 1.8 mg/dL 1.6-2.6 627) BASIC METABOLIC [id number] 04:42:00 Test Item Value Reference Range Interpretation [...] PATIEN TS. CBC W/PLT COUNT & AUTO [id number] 04:28:00 Test Item Value Reference Range Interpretation [...] = 2801) CBC W/PLT COUNT & AUTO [id number] 11:55:00 Test Item Value Reference Range Interpretation [...] 0-1 H PERCENT (BEAKER) (test code = 2802) [id number] 08:43:00 Test Item Value Reference Range Interpretation Comments MAGNESIUM (BEAKER) 1.9 mg/dL 1.6-2.6 Specimen slightly (test code = 627) hemolyzed BASIC METABOLIC [id number] 08:43:00 Test Item Value Reference Range Interpretation [...] S NOT APPLICABLE FOR DIALYSIS PATIEN TS. [id number] 03:36:00 Test Item Value Reference Range Interpretation Comments MAGNESIUM (BEAKER) (test code = 1.8 mg/dL 1.6-2.6 627) BASIC METABOLIC [id number] 03:36:00 Test Item Value Reference Range Interpretation [...] PATIEN TS. CBC W/PLT COUNT & AUTO [id number] 03:10:00 Test Item Value Reference Range Interpretation [...] 0-1 PERCENT (BEAKER) (test code = 2801) [id number] 06:05:00 Test Item Value Reference Range Interpretation Comments MAGNESIUM (BEAKER) (test code = 1.9 mg/dL 1.6-2.6 627) BASIC METABOLIC [id number] 06:05:00 Test Item Value Reference Range Interpretation [...] PATIEN TS. CBC W/PLT COUNT & AUTO [id number] 05:42:00 Test Item Value Reference Range Interpretation [...] PERCENT (BEAKER) (test code = 2801) POCT-GLUCOSE [id number] 18:07:00 Test Item Value Reference Range Interpretation Comments POC-GLUCOSE METER 97 mg/dL 70-110 : TESTED A T [facility] 6720 (BEAKER) (test code = [facility], 1538) [id number]: Interior Design Teacher/Techni criss ID = [id number] for IRAIS ESQUIVEL POCT-GLUCOSE [id number] 13:23:00 Test Item Value Reference Range Interpretation Comments POC-GLUCOSE METER 92 mg/dL 70-110 : TESTED A T [facility] 6720 (BEAKER) (test code = [facility], 1538) [id number]: Interior Design Teacher/Techni criss ID = [id number] for LEMO NIRAIS TROPONIN [id number] 12:02:00 Test Item Value Reference Range Interpretation Comments TROPONIN I (BEAKER) (test code = 0.66 ng/mL 0.00-0.03 [facility]) Troponin I (TnI) levels must be interpreted [...] acidosis, acute neurological disease, and persistent tachyarrhythmia.POCT-GLUCOSE [id number] 08:03:00 Test Item Value Reference Range Interpretation Comments POC-GLUCOSE METER 99 mg/dL 70-110 : TESTED A T [facility] 6720 (МАРИЯ) (test code = [facility], 1538) [id number]: Interior Design Teacher/Techni criss ID = [id number] for LEMO N, IRAIS RAD, CHEST, 1 VIEW, NON [id number] 07:02:00Reason for exam:->chest tubeShould this be performed at the bedside?->YesFINAL REPORT CLINICAL INDICATION: Support lines. Comparison: 04/10/2019 The card iomediastinal contours are stable. Central pulmonary vascular prominence and bilateral parenchymal and pleural opacities are similar to previous. There is no pneumothorax. A right IJ CVC has been removed. Signed: Eligio New Verified Date/Time: 04/11/2019 07:02:55 TROPONIN [id number] 03:58:00 Test Item Value Reference Range Interpretation [...] failure, acidosis, acute neurological disease, and persistent tachyarrhythmia.[id number] 03:34:00 Test Item Value Reference Range Interpretation Comments PHOSPHORUS (МАРИЯ) (test code = 2.4 mg/dL 2.3-4.7 604) [id number] 03:34:00 Test Item Value Reference Range Interpretation Comments MAGNESIUM (BEAKER) (test code = 2.0 mg/dL 1.6-2.6 627) BASIC METABOLIC [id number] 03:34:00 Test Item Value Reference Range Interpretation [...] 0-0 (BEAKER) (test code = 413) POCT-GLUCOSE [id number] 22:10:00 Test Item Value Reference Range Interpretation Comments POC-GLUCOSE METER 139 mg/dL 70-110 H : TESTED A T [facility] 6720 (BEAKER) (test code = [facility], 1538) [id number]: Interior Design Teacher/Techni criss ID = [id number] for LYUBOV MARMOLEJO POCT-GLUCOSE [id number] 21:27:00 Test Item Value Reference Range Interpretation Comments POC-GLUCOSE METER 126 mg/dL 70-110 H : TESTED A T [facility] 6720 (Treater) (test code = [facility], 1538) [id number]: Interior Design Teacher/Techni criss ID = [id number] for Cr uz, Natty POCT-GLUCOSE [id number] 12:13:00 Test Item Value Reference Range Interpretation Comments POC-GLUCOSE METER 190 mg/dL 70-110 H : TESTED A T [facility] 6720 (Treater) (test code = [facility], 1538) 24450: Interior Design Teacher/Techni criss ID = [id number] for OM MIRELA, ALICEA RAD, CHEST, 1 VIEW, NON [id number] 04:52:00while patient is intubated or has chest [...] Stable surgical changes.Additional findings: None. Signed: Tana Cortésort Verified Date/Time: 04/10/2019 04:52:01 [facility] ONLY)2019-04-10 03:54:00 Test Item Value Reference [...] /100 WBC 0-0 (test code = 413) [id number] 03:40:00 Test Item Value Reference Range Interpretation Comments PHOSPHORUS (BEAKER) (test code = 4.4 mg/dL 2.3-4.7 604) [id number] 03:40:00 Test Item Value Reference Range Interpretation Comments MAGNESIUM (BEAKER) (test code = 1.9 mg/dL 1.6-2.6 627) BASIC METABOLIC [id number] 03:40:00 Test Item Value Reference Range Interpretation [...] NOT APPLICABLE FOR DIALYSIS PATIEN TS. POCT-GLUCOSE [id number] 23:09:00 Test Item Value Reference Range Interpretation Comments POC-GLUCOSE METER 124 mg/dL 70-110 H : [facility] 6720 (BEAKER) (test code = [facility], 1538) [id number]: Interior Design Teacher/Techni criss ID = [id number] for CLAUDIA ERICKSON POCT-GLUCOSE [id number] 18:45:00 Test Item Value Reference Range Interpretation Comments POC-GLUCOSE METER 145 mg/dL 70-110 H : TESTED A T [facility] 6720 (BEAKER) (test code = [facility], 1538) [address]68[address]: Interior Design Teacher/Techni criss ID = [id number] for Brown Santos POCT-GLUCOSE [id number] 17:16:00 Test Item Value Reference Range Interpretation Comments POC-GLUCOSE METER 154 mg/dL 70-110 H : Will Rep eat Test: (BEAKER) (test code = TESTED AT [facility] 6720 1538) [facility], [address]: Interior Design Teacher/Techni criss ID = [id number] for BE LL IVAN BLOOD GAS, [id number] 16:11:00 Test Item Value Reference Range Interpretation Comments PH ARTERIAL (BEAKER) (test code = 7.41 7.35-7.45 383) PCO2 ARTERIAL (BEAKER) (test code 39 mmHg 35-45 = 384) PO2 ARTERIAL (BEAKER) (test code 159 mmHg 80-90 H = 385) O2 SATURATION ARTERIAL (BEAKER) 99.1 % 96.0-97.0 H (test code = 386) HCO3 ARTERIAL (BEAKER) (test code 24 mmol/L - = 388) BASE EXCESS ARTERIAL (BEAKER) -0.3 mmol/L -2.0-3.0 (test code = 387) PATIENT TEMPERATURE (BEAKER) 36.7 C (test code = 1818) FIO2 (BEAKER) (test code = 1819) 40.0 % [id number] 14:13:00 Test Item Value Reference Range Interpretation Comments MAGNESIUM (BEAKER) (test code = 1.6 mg/dL 1.6-2.6 627) RAD, CHEST, 1 VIEW, NON [id number] 13:42:00Reason for exam:->Status post CV Surgery post [...] well aligned. Signed: Bora Espinoeport Verified Date/Time: 04/09/2019 13:42:07 Reading Location: [facility] Reading Room CBC W/PLT COUNT & AUTO [id number] 13:21:00 Test Item Value Reference Range Interpretation [...] = 3438) Received comment: User comments: Slide comments:[id number] 13:20:00 Test Item Value Reference Range Interpretation Comments FIBRINOGEN LEVEL (BEAKER) (test 222 mg/dl 225-434 L code = 658) [id number] 13:20:00 Test Item Value Reference Range Interpretation Comments PARTIAL THROMBOPLASTIN TIME 34.1 seconds 22.5-36.0 (BEAKER) (test code = 760) PROTHROMBIN TIME/[id number] 13:19:00 Test Item Value Reference Range Interpretation [...] is 2.5-3.5 for patients wiht mechanical heart valves.[id number] 13:17:00 Test Item Value Reference Range Interpretation Comments PHOSPHORUS (BEAKER) (test code = 3.5 mg/dL 2.3-4.7 604) BASIC METABOLIC [id number] 13:17:00 Test Item Value Reference Range Interpretation [...] APPLICABLE FOR DIALYSIS PATIEN TS. LACTIC ACID, [id number] 13:13:00 Test Item Value Reference Range Interpretation Comments LACTATE BLOOD ARTERIAL (2) 0.9 mmol/L 0.5-2.2 (BEAKER) (test code = 2874) CALCIUM, [id number] 13:03:00 Test Item Value Reference Range Interpretation Comments CALCIUM IONIZED (BEAKER) (test 1.19 mmol/L 1.12-1.27 code = 698) PH, BLOOD (BEAKER) (test code = 7.36 1810) BLOOD GAS, [id number] 13:02:00 Test Item Value Reference Range Interpretation [...] code = 1819) 60.0 % OXYGEN SATURATION, [id number] 12:56:00 Test Item Value Reference Range Interpretation [...] 59.5 MM 55.0-65.0 (test code = 1413) [id number] 12:03:00 Test Item Value Reference Range Interpretation Comments FIBRINOGEN LEVEL (BEAKER) (test 224 mg/dl 225-434 L code = 658) [id number] 12:03:00 Test Item Value Reference Range Interpretation Comments PARTIAL THROMBOPLASTIN TIME 37.1 seconds 22.5-36.0 H (BEAKER) (test code = 760) PROTHROMBIN [id number] 12:02:00 Test Item Value Reference Range Interpretation [...] 2.5-3.5 for patients wiht mechanical heart valves.PLATELET [id number] 11:51:00 Test Item Value Reference Range Interpretation Comments PLATELET COUNT (BEAKER) (test 116 K/CU MM 150-450 L code = 756) POTASSIUM-STAT [id number] 11:47:00 Test Item Value Reference Range Interpretation Comments POTASSIUM (BEAKER) (test code = 4.8 meq/L 3.6-5.5 379) BLOOD GAS, [id number] 11:47:00 Test Item Value Reference Range Interpretation [...] (test code = 1819) 97.0 % CALCIUM, [id number] 11:47:00 Test Item Value Reference Range Interpretation Comments CALCIUM IONIZED (BEAKER) (test 1.08 mmol/L 1.12-1.27 L code = 698) PH, BLOOD (BEAKER) (test code = 7.30 1810) GLUCOSE-STAT [id number] 11:47:00 Test Item Value Reference Range Interpretation Comments GLUCOSE RANDOM (BEAKER) (test code 175 mg/dL 70-110 H = 652) SODIUM NA-STAT [id number] 11:47:00 Test Item Value Reference Range Interpretation Comments SODIUM (BEAKER) (test code = 381) 133 meq/L 135-148 L HGB/HCT (H&H) - STAT [id number] 11:47:00 Test Item Value Reference Range Interpretation [...] L (test code = 1413) BLOOD GAS, [id number] 11:17:00 Test Item Value Reference Range Interpretation [...] (test code = 1819) 91.0 % GLUCOSE-STAT [id number] 11:17:00 Test Item Value Reference Range Interpretation Comments GLUCOSE RANDOM (BEAKER) (test code 149 mg/dL 70-110 H = 652) HGB/HCT (H&H) - STAT [id number] 11:17:00 Test Item Value Reference Range Interpretation Comments HEMOGLOBIN (BEAKER) (test code = 8.5 g/dL 13.0-16.8 L 410) HEMATOCRIT (BEAKER) (test code = 25.0 % 40.0-50.0 L 411) SODIUM NA-STAT [id number] 11:17:00 Test Item Value Reference Range Interpretation Comments SODIUM (BEAKER) (test code = 381) 133 meq/L 135-148 L POTASSIUM-STAT [id number] 11:16:00 Test Item Value Reference Range Interpretation Comments POTASSIUM (BEAKER) (test code = 4.9 meq/L 3.6-5.5 379) [id number] 11:10:00 Test Item Value Reference Range Interpretation Comments ACTIVATED CLOTTING TIME 125 sec Refe rence Range: 74-137 (BEAKER) (test code = second s, 441) Baseline/TESTED AT [place] [address] 0 [id number] 11:10:00 Test Item Value Reference Range Interpretation Comments ACTIVATED CLOTTING TIME 549 sec Refe rence Range: 74-137 (BEAKER) (test code = second s, 441) Baseline/TESTED AT [place] [address] 0 [id number] 11:10:00 Test Item Value Reference Range Interpretation Comments ACTIVATED CLOTTING TIME 675 sec Refe rence Range: 74-137 (BEAKER) (test code = second s, 441) Baseline/TESTED AT [place] [address] 0 [id number] 11:10:00 Test Item Value Reference Range Interpretation Comments ACTIVATED CLOTTING TIME 885 sec Refe rence Range: 74-137 (BEAKER) (test code = second s, 441) Baseline/TESTED AT [place] [address] 0 [id number] 11:10:00 Test Item Value Reference Range Interpretation Comments ACTIVATED CLOTTING TIME 643 sec Refe rence Range: 74-137 (BEAKER) (test code = second s, 441) Baseline/TESTED AT [place] [address] 0 [id number] 10:55:00 Test Item Value Reference Range Interpretation Comments FIBRINOGEN LEVEL (BEAKER) (test 228 mg/dl 225-434 code = 658) [id number] 10:55:00 Test Item Value Reference Range Interpretation Comments PARTIAL THROMBOPLASTIN TIME 41.1 seconds 22.5-36.0 H (BEAKER) (test code = 760) PROTHROMBIN TIME/[id number] 10:54:00 Test Item Value Reference Range Interpretation [...] 2.5-3.5 for patients wiht mechanical heart valves.PLATELET [id number] 10:44:00 Test Item Value Reference Range Interpretation Comments PLATELET COUNT (BEAKER) (test code 83 K/CU MM 150-450 L = 756) BLOOD GAS, [id number] 10:44:00 Test Item Value Reference Range Interpretation [...] code = 1819) 92.0 % SODIUM NA-STAT [id number] 10:44:00 Test Item Value Reference Range Interpretation Comments SODIUM (BEAKER) (test code = 381) 130 meq/L 135-148 L GLUCOSE-STAT [id number] 10:44:00 Test Item Value Reference Range Interpretation Comments GLUCOSE RANDOM (BEAKER) (test code 154 mg/dL 70-110 H = 652) HGB/HCT (H&H) - STAT [id number] 10:44:00 Test Item Value Reference Range Interpretation Comments HEMOGLOBIN (BEAKER) (test code = 9.1 g/dL 13.0-16.8 L 410) HEMATOCRIT (BEAKER) (test code = 27.0 % 40.0-50.0 L 411) CALCIUM, [id number] 10:44:00 Test Item Value Reference Range Interpretation Comments CALCIUM IONIZED (BEAKER) (test 1.11 mmol/L 1.12-1.27 L code = 698) PH, BLOOD (BEAKER) (test code = 7.40 1810) POTASSIUM-STAT [id number] 10:40:00 Test Item Value Reference Range Interpretation Comments POTASSIUM (BEAKER) (test code = 5.0 meq/L 3.6-5.5 379) BLOOD GAS, [id number] 09:57:00 Test Item Value Reference Range Interpretation [...] (test code = 1819) 80.0 % GLUCOSE-STAT [id number] 09:57:00 Test Item Value Reference Range Interpretation Comments GLUCOSE RANDOM (BEAKER) (test code 168 mg/dL 70-110 H = 652) SODIUM NA-STAT [id number] 09:57:00 Test Item Value Reference Range Interpretation Comments SODIUM (BEAKER) (test code = 381) 131 meq/L 135-148 L POTASSIUM-STAT [id number] 09:57:00 Test Item Value Reference Range Interpretation Comments POTASSIUM (BEAKER) (test code = 5.9 meq/L 3.6-5.5 H 379) HGB/HCT (H&H) - STAT [id number] 09:57:00 Test Item Value Reference Range Interpretation Comments HEMOGLOBIN (BEAKER) (test code = 8.5 g/dL 13.0-16.8 L 410) HEMATOCRIT (BEAKER) (test code = 25.0 % 40.0-50.0 L 411) BLOOD GAS, [id number] 09:31:00 Test Item Value Reference Range Interpretation [...] code = 1819) 65.0 % SODIUM NA-STAT [id number] 09:31:00 Test Item Value Reference Range Interpretation Comments SODIUM (BEAKER) (test code = 381) 131 meq/L 135-148 L GLUCOSE-STAT [id number] 09:31:00 Test Item Value Reference Range Interpretation Comments GLUCOSE RANDOM (BEAKER) (test code 175 mg/dL 70-110 H = 652) HGB/HCT (H&H) - STAT [id number] 09:31:00 Test Item Value Reference Range Interpretation Comments HEMOGLOBIN (BEAKER) (test code = 7.7 g/dL 13.0-16.8 L 410) HEMATOCRIT (BEAKER) (test code = 23.0 % 40.0-50.0 L 411) POTASSIUM-STAT [id number] 09:29:00 Test Item Value Reference Range Interpretation Comments POTASSIUM (BEAKER) (test code = 5.5 meq/L 3.6-5.5 379) POTASSIUM-STAT [id number] 09:07:00 Test Item Value Reference Range Interpretation Comments POTASSIUM (BEAKER) 6.9 meq/L 3.6-5.5 HH Sample NO T Hemolyzed. (test code = 379) BLOOD GAS, [id number] 09:05:00 Test Item Value Reference Range Interpretation [...] (test code = 1819) 70.0 % GLUCOSE-STAT [id number] 09:05:00 Test Item Value Reference Range Interpretation Comments GLUCOSE RANDOM (BEAKER) (test code 216 mg/dL 70-110 H = 652) HGB/HCT (H&H) - STAT [id number] 09:05:00 Test Item Value Reference Range Interpretation Comments HEMOGLOBIN (BEAKER) (test code = 8.0 g/dL 13.0-16.8 L 410) HEMATOCRIT (BEAKER) (test code = 24.0 % 40.0-50.0 L 411) SODIUM NA-STAT [id number] 09:05:00 Test Item Value Reference Range Interpretation Comments SODIUM (BEAKER) (test code = 381) 123 meq/L 135-148 L GLUCOSE-STAT [id number] 08:03:00 Test Item Value Reference Range Interpretation Comments GLUCOSE RANDOM (BEAKER) (test code 107 mg/dL 70-110 = 652) POTASSIUM-STAT [id number] 08:03:00 Test Item Value Reference Range Interpretation Comments POTASSIUM (BEAKER) (test code = 4.2 meq/L 3.6-5.5 379) BLOOD GAS, [id number] 08:03:00 Test Item Value Reference Range Interpretation [...] code = 1819) 100.0 % SODIUM NA-STAT [id number] 08:03:00 Test Item Value Reference Range Interpretation Comments SODIUM (BEAKER) (test code = 381) 130 meq/L 135-148 L HGB/HCT (H&H) - STAT [id number] 08:03:00 Test Item Value Reference Range Interpretation Comments HEMOGLOBIN (BEAKER) (test code = 12.3 g/dL 13.0-16.8 L 410) HEMATOCRIT (BEAKER) (test code = 36.0 % 40.0-50.0 L 411) CALCIUM, [id number] 08:02:00 Test Item Value Reference Range Interpretation Comments CALCIUM IONIZED (BEAKER) (test 1.23 mmol/L 1.12-1.27 code = 698) PH, BLOOD (BEAKER) (test code = 7.45 1810) POCT-GLUCOSE [id number] 06:05:00 Test Item Value Reference Range Interpretation Comments POC-GLUCOSE METER 96 mg/dL 70-110 : TESTED A T [facility] 6720 (BEAKER) (test code = [facility], 1538) [id number]: Interior Design Teacher/Techni criss ID = [id number] for JORD AN, LACRYSTAL RAD, CHEST, 2 [id number] 13:23:00In departmentReason for exam:->Aoritc valve replacement Pre op screenFINAL REPORT CLINICAL HISTORY: Aortic valve replacement Pre op screen TECHNIQUE: 2 views of the chest COMPARISON: None IMPRESSION: There are no focal infiltrates or effusions. The c ardiomediastinal silhouette is within normal limits for size. The osseous structures appear intact. Signed: Jaiden Galvan MDReport Verified Date/Time: 04/04/2019 13:23:46 Reading Location: [facility] Radiology Reading Room HEMOGLOBIN [id number] 13:07:00 Test Item Value Reference Range Interpretation Comments HEMOGLOBIN A1C (BEAKER) (test code = 4.7 % 4.3-6.1 368) [id number] 12:23:00 Test Item Value Reference Range Interpretation Comments MAGNESIUM (BEAKER) (test code = 2.0 mg/dL 1.6-2.6 627) COMPREHENSIVE METABOLIC [id number] 12:23:00 Test Item Value Reference Range Interpretation [...] NOT APPLICABLE FOR DIALYSIS PATIEN TS. LIPID [id number] 12:23:00 Test Item Value Reference Range Interpretation [...] 100-129 Borderline 130-159 High 160-189 Very High [id number] 12:02:00 Test Item Value Reference Range Interpretation Comments PARTIAL THROMBOPLASTIN TIME 34.5 seconds 22.5-36.0 (BEAKER) (test code = 760) PROTHROMBIN TIME/[id number] 12:01:00 Test Item Value Reference Range Interpretation [...] mechanical heart valves.CBC W/PLT COUNT & AUTO [id number] 11:52:00 Test Item Value Reference Range Interpretation [...] 0-1 H PERCENT (BEAKER) (test code = 8520)
--- NOTE | 2023-02-28 16:02 | ER ---
Nurse's Notes [facility] Name: Gavin Polo Jr Age: 67 yrs Sex: Male : 1955 Arrival Date: 02/28/2023 Time: 14:46 Bed 13 Private MD: Diagnosis: Other fatigue Presentation: 02/28 15:07 Chief complaint: Patient states: he went to see Dr Way today because he has had me1 malaise for a few weeks. He stated that Dr Way office did a lot of blood work and sent him here for IV fluids for dehydration. Denies being sick in the recent past. Coronavirus screen: Vaccine status: Patient reports receiving the 2nd dose of the covid vaccine. Ebola Screen: No symptoms or risks identified at this time. Initial Sepsis Screen: Does the patient meet any 2 criteria? No. Patient's initial sepsis screen is negative. Does the patient have a suspected source of infection? No. Patient's initial sepsis screen is negative. Risk Assessment: Do you want to hurt yourself or someone else? Patient reports no desire to harm self or others. Onset of symptoms is unknown. 15:07 Method Of Arrival: Ambulatory [facility] 15:07 Acuity: NICK 4 me1 Triage Assessment: 15:10 General: Appears comfortable, well groomed, well developed, well nourished, Behavior is me1 calm, cooperative, appropriate for age, flat, Reports fatigue for about 3 weeks. . Denies fever, feeling ill, fatigue, chills. Pain: Denies pain. Neuro: Level of Consciousness is awake, alert, obeys commands, Oriented to person, place, time, situation, Appropriate for age. Cardiovascular: Capillary refill < 3 seconds Patient's skin is warm and dry. Respiratory: Airway is patent Respiratory effort is even, unlabored, Respiratory pattern is regular, symmetrical. GI:. Historical: - Allergies: 15:10 No Known Allergies; me1 - PMHx: 15:10 Anxiety; Atrial valve stenosis; barrots; central tremor; etoh abuse; GERD; Hypertension;me1 - PSHx: 15:10 heart valve replacement; me1 - Immunization history:: Adult Immunizations up to date. - Social history:: Smoking status: Patient denies any tobacco usage or history of. Screenin:12 [facility] ED Fall Risk Assessment (Adult) History of falling in the last 3 months, me1 including since admission No falls in past 3 months (0 pts) Confusion or Disorientation No (0 pts) Intoxicated or Sedated No (0 pts) Impaired Gait No (0 pts) Mobility Assist Device Used No (0 pt) Altered Elimination No (0 pt) Score/Fall Risk Level 0 - 2 = Low Risk Maintained a safe environment, Provided non-skid footwear, Hourly rounding (assess needs \T\ fall precautionary measures) done. Abuse screen: Denies threats or abuse. Nutritional screening: No deficits noted. Tuberculosis screening: No symptoms or risk factors identified. Assessment: 15:12 General: See triage assessment. . me1 Vital Signs: 15:07 BP 131 / 75; Pulse 91; Resp 15; Temp 98(O); Pulse Ox 94% on R/A; Weight 100.7 kg; me1 Height 5 ft. 8 in. ; Pain 0/10; 16:10 BP 126 / 76; Pulse 83; Resp 19; Pulse Ox 93% on R/A; me1 15:07 Body Mass Index 33.75 (100.70 kg, 172.72 cm) me1 15:07 Pain Scale: Adult me1 [place] Coma Score: 15:25 Eye Response: spontaneous(4). Motor Response: obeys commands(6). Verbal Response: aj3 oriented(5). Total: 15. ED Course: 14:49 Patient arrived in ED. mg5 14:57 Daylin Stokes, MERLY is PHCP. aj3 14:57 Alvin Berumen MD is Attending Physician. aj3 15:07 Vibha Ordoñez, RN is Primary Nurse. me1 15:10 Triage completed. me1 15:10 Arm band placed on Patient placed in waiting room. me1 15:12 Patient has correct armband on for positive identification. Bed in low position. Call oh1 light in reach. Side rails up X 1. Provided Education on: POC, Verbalized understanding. . 15:12 No provider procedures requiring assistance completed. me1 16:10 Patient did not have IV access during this emergency room visit. me1 Administered Medications: No medications were administered Medication: 15:12 VIS not applicable for this client. me1 Outcome: 16:01 Discharge ordered by . aj3 16:10 Discharged to home ambulatory, me1 16:10 Condition: stable 16:10 Discharge instructions given to patient, Instructed on discharge instructions, follow up and referral plans. Demonstrated understanding of instructions, follow-up care, 16:11 Patient left the ED. me1 Signatures: Daylin Stokes NP GEAR SHAPER aj3 Vibha Ordoñez, RN RN me1 Maribel Love mg5
--- NOTE | 2023-02-28 16:11 | EDPHYS ---
Physician Documentation [facility] Name: Gavin Polo Jr Age: 67 yrs Sex: Male : 1955 Arrival Date: 02/28/2023 Time: 14:46 Bed 13 Private MD: ED Physician Alvin Berumen HPI: 02/28 15:25 This 67 yrs old Male presents to ER via Ambulatory with complaints of Sent By Dr for aj3 fatigue and possible dehydration. 15:25 He reports having fatigue and increased sleep for the last 2 weeks. He saw his PCP and aj3 had labs drawn today and was told to come to ED. . Historical: - Allergies: 15:10 No Known Allergies; me1 - PMHx: 15:10 Anxiety; Atrial valve stenosis; barrots; central tremor; etoh abuse; GERD; Hypertension;me1 - PSHx: 15:10 heart valve replacement; me1 - Immunization history:: Adult Immunizations up to date. - Social history:: Smoking status: Patient denies any tobacco usage or history of. ROS: 15:25 Cardiovascular: Negative for chest pain, palpitations, and edema, Respiratory: Negative aj3 for shortness of breath, cough, wheezing, and pleuritic chest pain, Abdomen/GI: Negative for abdominal pain, nausea, vomiting, diarrhea, and constipation, MS/Extremity: Negative for injury and deformity, Skin: Negative for injury, rash, and discoloration, 15:25 Neuro: Negative for syncope, headache, weakness, numbness, tingling, and seizure, 15:25 Constitutional: Positive for fatigue, Negative for body aches, chills, fever, 15:25 Neuro: Positive for Exam: 15:25 Constitutional: This is a well developed, well nourished patient who is awake, alert, aj3 and in no acute distress. Neck: Supple, full range of motion without nuchal rigidity. Cardiovascular: Regular rate and rhythm with a normal S1 and S2. No gallops, murmurs, or rubs. Normal PMI, no JVD. No pulse deficits. Respiratory: Lungs have equal breath sounds bilaterally, clear to auscultation and percussion. No rales, rhonchi or wheezes noted. No increased work of breathing, no retractions or nasal flaring. Abdomen/GI: Soft, non-tender, with normal bowel sounds. No distension or tympany. No guarding or rebound. No evidence of tenderness throughout. Skin: Warm, dry with normal turgor. Normal color with no rashes, no lesions, and no evidence of cellulitis. MS/ Extremity: Pulses equal, no cyanosis. Neurovascular intact. Full, normal range of motion. Neuro: Awake and alert, GCS 15, oriented to person, place, time, and situation. Motor strength 5/5 in all extremities. Sensory grossly intact. Normal gait. Vital Signs: 15:07 BP 131 / 75; Pulse 91; Resp 15; Temp 98(O); Pulse Ox 94% on R/A; Weight 100.7 kg; me1 Height 5 ft. 8 in. ; Pain 0/10; 16:10 BP 126 / 76; Pulse 83; Resp 19; Pulse Ox 93% on R/A; me1 15:07 Body Mass Index 33.75 (100.70 kg, 172.72 cm) me1 15:07 Pain Scale: Adult me1 Lamar Coma Score: 15:25 Eye Response: spontaneous(4). Motor Response: obeys commands(6). Verbal Response: aj3 oriented(5). Total: 15. MDM: 15:23 Patient medically screened. aj3 15:30 Differential diagnosis: ARIEL, dehydration, electrolyte imbalance, anemia, infection. aj3 Data reviewed: vital signs, nurses notes, I have discussed the patient's presentation/case with the attending Emergency Department Physician;. Test considered but Not performed: Labs: patient declined. Care significantly affected by the following chronic conditions: Hypertension. 16:02 ED course: Patient opted to leave due to not wanting labs since he recently had blood aj3 work done at [facility] today. Patient said he will call his doctor tomorrow and retrieve the lab results to bring here. Patient does not appear toxic or in apparent distress. He was discharged with strict ER return precautions. . 16:02 Counseling: I had a detailed discussion with the patient and/or guardian regarding to aj3 return to the emergency department if symptoms worsen or persist or if there are any questions or concerns that arise at home. 16:02 Refusal of service: The patient/guardian displays adequate decision making capability aj3 and despite a detailed discussion of alternatives, benefits, risks, and consequences refuses: all lab tests. Administered Medications: No medications were administered Disposition: 17:20 Co-signature as Attending Physician, Alvin Berumen MD I reviewed the patient's care rn provided by the Advanced Practice Provider and agree with the diagnosis and treatment plan. Disposition Summary: 02/28/23 16:01 Discharge Ordered Problem: chronic aj3 Symptoms: are unchanged aj3 Condition: Stable aj3 Diagnosis - Other fatigue aj3 Followup: aj3 - With: Private Physician - When: - Reason: Recheck today's complaints, Re-evaluation by your physician Followup: aj3 - With: Emergency Department - When: - Reason: Trouble breathing, Worsening of condition Discharge Instructions: - Discharge Summary Sheet aj3 - Fatigue aj3 Forms: - Medication Reconciliation Form aj3 - Thank You Letter aj3 - Antibiotic Education aj3 - Prescription Opioid Use aj3 - Patient Portal Instructions aj3 - Leadership Thank You Letter aj3 Signatures: Alvin Berumen MD MD rn Daylin Stokes NP SOFTWARE MANAGER aj3 Vibha Ordoñez RN RN me1 Corrections: (The following items were deleted from the chart) 21:44 16:02 ED course: . aj3 aj3 21:44 15:51 ED course: Patient opted to leave due to not wanting labs since he recently had aj3 blood work done at [facility] today. . aj3
[2023-02-28 16:59] VITALS: TEMP 98
[2023-02-28 17:01] VITALS: BP 126/76; O2SAT 93
== END 2023-02-28 16:11 | disposition home or self-care (01) ==
LOC: ER 14:46
DX: R53.83 Other fatigue (principal); I10 Essential (primary) hypertension; Z95.2 Presence of prosthetic heart valve

== ENCOUNTER 2023-04-20 15:09 | Emergency (ER) | payer OTHER ==
--- OUTSIDE RECORDS SUMMARY | 2023-04-20 15:22 | XMS REPORT | Continuity of Care Document ---
:1955 Author Organization [facility] t Address [address] [place] [address] Care Team Providers Name Role Phone Rayna Crockett MD, William Primary Care Physician [phone] SEBASTIÁN MAST Attending Clinician Unavailable SEBASTIÁN MAST Attending Clinician Unavailable Shaun Way Attending Clinician Unavailable DAVID MURPHY Attending Clinician Unavailable BENNY PALENCIA Attending Clinician Unavailable Sebastián Mast MD Attending Clinician Benny Ruiz Attending Clinician Doctor Unassigned, Cherry Log Attending Clinician Unavailable Wellington Mcrae PTA Attending Clinician Unavailable Ivett Kent PT Attending Clinician Unavailable Fernando Desai MD Attending Clinician Jamia Barrett MA Attending Clinician Unavailable BRAULIO BERRY Attending Clinician Unavailable BRINDA TAN Attending Clinician Unavailable LENCHO DELGADO Attending Clinician Unavailable Brandon KELLY, Girish Patel Attending Clinician Tasneem Shaw MD Attending Clinician [...] Date Expiration Date S hayes [employer]ET[employer] MANAGED [id number] 2022 MEDICARE 00:00:00 PPO-PASQUALE MEDICARE PART A [id number] 2020 2024 AND B 00:00:00 00:00:00 [employer] HMO [id number] 1929 00:00:00 AET[employer] HMO POS [id number] QPOS 00:00:00 AETNA 53 [id number] [facility] MEDICARE MB [id number] [facility] MEDICARE MB [id number] [facility] MEDICARE MB [id number] [facility] MEDICARE MB [id number] [facility] MEDICARE MB [id number] [facility] MEDICARE MB [id number] [facility] MEDICARE MB [id number] [facility] MEDICARE MB [id number] [facility] MEDICARE MB [id number] [facility] MEDICARE MB [id number] [facility] MEDICARE MB [id number] [facility] MEDICARE MB [id number] [facility] MEDICARE MB [id number] [facility] Problems Condition Condition Condition Status Onset Resolution [...] Added automatic ally from request for surgery [id number] Obesity Obesity Disease Active 2019-06 Univers (BMI (BMI 2-11 ity of 30-39.9) 30-39.9) 00:00: [address] Branch Alcohol Alcohol Disease Active 2019-06 Univers withdrawal withdrawal 2-10 it y of 00:00: [address] Branch s/p s/p Disease Active 2018-06 [facility] [address] Bioprosthe Bioprosthe Rosie kes tic AVR by tic AVR by 00:00: Me amish Ku[address]. 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 of carcinoma) carcinoma[place] , [place] [address] [place] [address] Branch Vasogenic Vasogenic Disease Recurre [facility] shock shock [facility] Acute Acute Disease Recurre [facility] respirator respirator nce Rosie kes y y Medical insufficie insufficie Ce nter ncy ncy Postoperat Postoperat Disease Active C HI [facility] jef jef [facility] hypovolemi hypovolemi Me dical c shock, c shock, Center initial initial encounter encounter Hypertensi Hypertensi Disease Active C [facility] on on [facility] Neurogenic Neurogenic Problem C ommon dysfunctio urinary Spiri t n of the bladder - CHI urinary disorder bladder [facility] [id number] Other Problem 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[facility] arthropath - CHI ies, not St elsewhere [facility] classified Medica l , left Center shoulder [id number] Rotator Problem Comm on [id number] cuff Spirit arthropath - CHI y of left [facility] [id number] 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 Family History Family Member Diagnosis Comments Start Date Stop Date Source Natural father Heart attack [facility] Natural mother Cancer [facility] Social History Social Habit Start Date Stop Date Quantity Comments Source Gender identity Universit y [facility] Sexual orientation Method ist Hospital History [facility] Alcohol Std Drinks Medica Center History [facility] Alcohol Binge Medical Laurie ter History of Tobacco [facility] - Use [facility] History of Social 2023-03-13 2023-03-13 Univers ity of function 00:00:00 00:00:00 [facility] Exposure to 2022-09-18 2022-09-28 Not sure University of SARS-CoV-2 (event) 00:00:00 15:16:00 [facility] Alcohol intake 2021-05-12 2021-05-12 Current drinker [facility] 00:[facility]:00 00:00:00 of [facility] (finding) History SDHI Social 2020-05-22 2020-05-22 2 Unive rsity of Connections Phone 00:00:00 00:00:00 [place] M edical Branch History SDOH Social 2020-05-22 2020-05-22 98 Unive rsity of Connections Get 00:00:00 00:00:00 [place] Med ical Together Branch History SDOH Social 2020-05-22 2020-05-22 98 Unive rsity of Connections Yazdanism 00:00:00 00:00:00 [place] [facility] History SDOH Social 2020-05-22 2020-05-22 [...] University o f Transport Non-Med 00:00:00 00:00:00 [place] M edical [facility] Alcohol Comment 2019-04-10 2019-04-[address] [facility] Center Tobacco use and 2019-04-04 2019-04-[address] Rosie kes exposure 00:00:00 00:00:00 tobacco non-user Medical Center History SDOH 2019-04-04 2019-04-04 1 JULIA Ervin Alcohol Frequency 00:00:00 00:00:00 [facility] Center Sex Ass[birth year] At [birth year] JULIA Jimenez 00:00:00 00:00:00 Medical Center Smoking Status Start Date Stop Date Source Tobacco smoking consumption unknown [facility] Never smoked tobacco [facility] Medications Ordered Filled Start Stop Current Ordering Indication Dosage Frequency Signature Comments Components Source Medication Medication Date Date Medication? Clinician (SIG) Name Name oxyCODONE-a 2022-06- Yes 2{tbl} Uni vers cetaminophe 0-04-03 ity of n 05:00: 16:59 [place] (PERCOCET) 00 :00 Medical 5-325 mg Branch per tablet 2 tablet tranexamic 2022-06- Yes 1000mg Univ ers acid 0-03 04- ity of (CYKLOKAPRO 05:00: 16:59 [place] N) 1,000 mg 00 :00 Medical in NaCl Branch 0.9% (NS) 250 mL piggyback oxyCODONE-a 2022-06- Yes 2{tbl} Uni vers cetaminophe 0-03 04- ity of n 05:00: 16:59 [place] (PERCOCET) 00 :00 Medical 5-325 mg Branch per tablet 2 tablet tranexamic 2022-06- Yes 1000mg Univ ers acid 0-03 04- ity of (CYKLOKAPRO 05:00: 16:59 [place] N) 1,000 mg 00 :00 Medical in NaCl Branch 0.9% (NS) 250 mL piggyback oxyCODONE-a 2022- Yes 2{tbl} Uni vers cetaminophe 02-27 ity of n 05:00: 16:59 [place] (PERCOCET) 00 :00 Medical 5-325 mg Branch per tablet 2 tablet tranexamic 2022- Yes 1000mg Univ ers acid 02-27 ity of (CYKLOKAPRO 05:00: 16:59 [place] N) 1,000 mg 00 :00 Medical in NaCl Branch 0.9% (NS) 250 mL piggyback oxyCODONE-a 2022- No 2{tbl} Uni vers cetaminophe 09-26 ity of n 05:00: 16:59 [place] (PERCOCET) 00 :00 Medical 5-325 mg Branch per tablet 2 tablet tranexamic No 1000mg Univ ers acid 09-26 ity of (CYKLOKAPRO 05:00: 16:59 [place] N) 1,000 mg 00 :00 Medical in NaCl Branch 0.9% (NS) 250 mL piggyback aspirin 81 2020-06 Yes 81mg QD Take [address] MG EC 2-01 by mouth [facility] tablet 11:38: daily. [facility] 03 Center aspirin 81 2020-06 Yes 81mg QD Take [address] MG EC 2-01 by mouth [facility] tablet 11:38: daily. [facility] 03 Center temazepam 2020-06 Yes 15mg Take [address] (RESTORIL) 2-01 by mouth [facility] 15 mg 11:37: every Medical capsule 45 night as Center needed for Sleep. ibuprofen 2020-06 Yes 800mg Take [address] (ADVIL,MOTR 2-01 mg by [facility]ukes IN) 800 MG 11:37: mouth Medica l tablet 45 every 6 Center (six) hours as needed for Pain. temazepam 2020-06 Yes 15mg Take 15 mg [...] MG 11:37: daily. Medical tablet 44 Center DULoxetine 2020-06 Yes 30mg QD Take 30 [...] needed Medical tablet 10 for Center Allergies. loratadine 2020-06 Yes 10mg Take [address] (CLARITIN) 2-01 by mouth [facility] 10 mg 11:34: as needed Medical tablet 10 for Center Allergies. Ibuprofen Ibuprofen 2020-06 No Ibuprofen 800 MG 800 MG 0-26 [...] le} 00:00: 00:00 00 :00 Tamsulosin Tamsulosin 2020-0 2021- No 1{capsu QD Tamsulosin HCl 0.4 MG HCl 0.4 MG 6-17 12-13 le} HCl 0.4 MG 00:00: 00:00 00 :00 Tamsulosin Tamsulosin 2020-0 2021- No 1{capsu QD Tamsulosin HCl 0.4 MG HCl 0.4 MG 6-17 12-13 le} HCl 0.4 MG 00:00: 00:00 00 :00 Tamsulosin Tamsulosin 0 2021- No 1{capsu QD Tamsulosin HCl 0.4 [...] eded} 00 traMADol traMADol 2020-0 No 1{table HCl 50 MG HCl 50 MG 3-11 t_as_ne 00:00: eded} 00 traMADol traMADol 2020-0 No 1{table traMADol HCl 50 MG HCl 50 MG 3-11 t_as_ne HCl 50 MG 00:00: eded} 00 traMADol traMADol 2020-0 No 1{table traMADol HCl 50 MG HCl 50 MG 3-11 t_as_ne HCl 50 MG 00:00: eded} 00 Bupivicaine Bupivicaine 2020-0 No [facility] [place] 3-11 Spirit 00:00: - [facility] Kenalog Kenalog 2020-0 No 40mg Common (Triamcinol (Triamcinol 3-11 S pirit one) one) 00:00: - [facility] traMADol traMADol 2020-0 No 1{table traMADol HCl 50 MG HCl 50 MG 3-11 t_as_ne HCl 50 MG 00:00: eded} 00 Bupivicaine Bupivicaine 2020-0 No 2.5mg [facility] [place] 3-11 Spirit 00:00: - [facility] 00 [facility] Kenalog Kenalog 2020-0 No 40mg Common (Triamcinol (Triamcinol 3-11 S pirit one) one) 00:00: - [facility] 00 [facility] traMADol traMADol 2020-0 No 1{table traMADol HCl 50 MG HCl 50 MG 3-11 t_as_ne HCl 50 MG 00:00: eded} 00 Bupivicaine Bupivicaine 2020-0 No 2.5mg [facility] [place] 3-11 Spirit 00:00: - [facility] 00 [facility] Kenalog Kenalog 2020-0 No 40mg Common (Triamcinol (Triamcinol 3-11 S pirit one) one) 00:00: - [facility] 00 [facility] traMADol traMADol 2020-0 No 1{table traMADol HCl 50 MG HCl 50 MG 3-11 t_as_ne HCl 50 MG 00:00: eded} 00 Bupivicaine Bupivicaine 1-0 No 2.5mg [facility] [place] 3-11 Spirit 00:00: - [facility] 00 [facility] Kenalog Kenalog No 40mg Common (Triamcinol (Triamcinol 3-11 S pirit one) one) 00:00: - [facility] 00 [facility] traMADol traMADol No 1{table traMADol HCl 50 MG HCl 50 MG 3-11 t_as_ne HCl 50 MG 00:00: eded} 00 traMADol traMADol No 1{table traMADol HCl 50 MG HCl 50 MG 3-11 t_as_ne HCl 50 MG 00:00: eded} 00 traMADol traMADol No 1{table traMADol HCl 50 MG HCl 50 MG 3-11 t_as_ne HCl 50 MG 00:00: eded} 00 thiamine 2020-1 Yes [id number] 100mg Take 1 U nivers 100 mg 2-12 tablet by ity of tablet 00:00: mouth [place] 00 daily. [facility] Branch thiamine 2020-1 Yes [id number] 100mg Take 1 U nivers 100 mg 2-12 tablet by ity of tablet 00:00: mouth [place] 00 daily. [facility] Branch thiamine 2020-1 Yes [id number] 100mg Take 1 U nivers 100 mg 2-12 tablet by ity of tablet 00:00: mouth [place] 00 daily. [facility] Branch thiamine 2020-1 Yes [id number] 100mg Take 1 U nivers 100 mg 2-12 tablet by ity of tablet 00:00: mouth [place] 00 daily. [facility] thiamine 2020-1 Yes [id number] 100mg Take 1 U nivers 100 mg 2-12 tablet by ity of tablet 00:00: mouth [place] 00 daily. [facility] thiamine 2020-1 Yes [id number] 100mg Take 1 U nivers 100 mg 2-12 tablet by ity of tablet 00:00: mouth [place] 00 daily. [facility] thiamine 2020-1 Yes [id number] 100mg Take 1 U nivers 100 mg 2-12 tablet by ity of tablet 00:00: mouth [place] 00 daily. [facility] thiamine 2020-1 Yes [id number] 100mg Take 1 U nivers 100 mg 2-12 tablet by ity of tablet 00:00: mouth [place] 00 daily. [facility] thiamine 2020-1 Yes [id number] 100mg Take 1 U nivers 100 mg 2-12 tablet by ity of tablet 00:00: mouth [place] 00 daily. [facility] thiamine 2020-1 Yes [id number] 100mg Take 1 U nivers 100 mg 2-12 tablet by ity of tablet 00:00: mouth [place] 00 daily. Medical Branch thiamine 2020-1 Yes [id number] 100mg Take 1 U nivers 100 mg 2-12 tablet by ity of tablet 00:00: mouth [place] 00 daily. [facility] Branch thiamine 2020-1 Yes [id number] 100mg Take 1 U nivers 100 mg 2-12 tablet by ity of tablet 00:00: mouth [place] 00 daily. Medical Branch thiamine 2020-1 Yes [id number] 100mg Take 1 U nivers 100 mg 2-12 tablet by ity of tablet 00:00: mouth [place] 00 daily. Medical Branch thiamine 2020-1 Yes [id number] 100mg Take 1 U nivers 100 mg 2-12 tablet by ity of tablet 00:00: mouth [place] 00 daily. [facility] Branch thiamine 2020-1 Yes [id number] 100mg Take 1 U nivers 100 mg 2-12 tablet by ity of tablet 00:00: mouth [place] 00 daily. [facility] Branch thiamine 2020-1 Yes [id number] 100mg Take 1 U nivers 100 mg 2-12 tablet by ity of tablet 00:00: mouth [place] 00 daily. Medical Branch thiamine 2020-1 Yes [id number] 100mg Take 1 U nivers 100 mg 2-12 tablet by ity of tablet 00:00: mouth [place] 00 daily. [facility] Branch thiamine 2020-1 Yes [id number] 100mg Take 1 U nivers 100 mg 2-12 tablet by ity of tablet 00:00: mouth [place] 00 daily. [facility] Branch thiamine 2020-1 Yes [id number] 100mg Take 1 U nivers 100 mg 2-12 tablet by ity of tablet 00:00: mouth [place] 00 daily. Medical Branch thiamine 2020-1 Yes [id number] 100mg Take 1 U nivers 100 mg 2-12 tablet by ity of tablet 00:00: mouth [place] 00 daily. [facility] Branch thiamine 2020-1 Yes [id number] 100mg Take 1 U nivers 100 mg 2-12 tablet by ity of tablet 00:00: mouth [place] 00 daily. [facility] Branch thiamine 2020-1 Yes [id number] 100mg Take 1 U nivers 100 mg 2-12 tablet by ity of tablet 00:00: mouth [place] 00 daily. [facility] Branch thiamine 2020-1 Yes [id number] 100mg Take 1 U nivers 100 mg 2-12 tablet by ity of tablet 00:00: mouth [place] 00 daily. [facility] Branch thiamine 2020-1 Yes [id number] 100mg Take 1 U nivers 100 mg 2-12 tablet by ity of tablet 00:00: mouth [place] 00 daily. Medical Branch thiamine 2020-1 Yes [id number] 100mg Take 1 U nivers 100 mg 2-12 tablet by ity of tablet 00:00: mouth [place] 00 daily. Medical Branch thiamine 2020-1 Yes [id number] 100mg Take 1 U nivers 100 mg 2-12 tablet by ity of tablet 00:00: mouth [place] 00 daily. Medical Branch thiamine 2020-1 Yes [id number] 100mg Take 1 U nivers 100 mg 2-12 tablet by ity of tablet 00:00: mouth [place] 00 daily. [facility] Branch thiamine 2020-1 Yes [id number] 100mg Take 1 U nivers 100 mg 2-12 tablet by ity of tablet 00:00: mouth [place] 00 daily. [facility] Branch thiamine 2020-1 Yes [id number] 100mg Take 1 U nivers 100 mg 2-12 tablet by ity of tablet 00:00: mouth [place] 00 daily. Medical Branch thiamine 2020-1 Yes [id number] 100mg Take 1 U nivers 100 mg 2-12 tablet by ity of tablet 00:00: mouth [place] 00 daily. Medical Branch thiamine 2020-1 Yes [id number] 100mg Take 1 U nivers 100 mg 2-12 tablet by ity of tablet 00:00: mouth [place] 00 daily. [facility] Branch thiamine 2020-1 Yes [id number] 100mg Take 1 U nivers 100 mg 2-12 tablet by ity of tablet 00:00: mouth [place] 00 daily. [facility] Branch thiamine 2020-1 Yes [id number] 100mg Take 1 U nivers 100 mg 2-12 tablet by ity of tablet 00:00: mouth [place] 00 daily. Medical Branch thiamine 2020-1 Yes [id number] 100mg Take 1 U nivers 100 mg 2-12 tablet by ity of tablet 00:00: mouth [place] 00 daily. [facility] Branch thiamine 2020-1 Yes [id number] 100mg Take 1 U nivers 100 mg 2-12 tablet by ity of tablet 00:00: mouth [place] 00 daily. [facility] Branch thiamine 2020-1 Yes [id number] 100mg Take 1 U nivers 100 mg 2-12 tablet by ity of tablet 00:00: mouth [place] 00 daily. [facility] Branch thiamine 2020-1 Yes [id number] 100mg Take 1 U nivers 100 mg 2-12 tablet by ity of tablet 00:00: mouth [place] 00 daily. Medical Branch thiamine 2019-06 Yes [id number] 100mg Take 1 U nivers 100 mg 2-12 tablet by ity of tablet 00:00: mouth [place] 00 daily. Medical Branch thiamine 2019-06 Yes [id number] 100mg Take 1 U nivers 100 mg 2-12 tablet by ity of tablet 00:00: mouth [place] 00 daily. Medical Branch thiamine 2019-06 Yes [id number] 100mg Take 1 U nivers 100 mg 2-12 tablet by ity of tablet 00:00: mouth [place] 00 daily. Medical Branch thiamine 2019-06 Yes [id number] 100mg Take 1 U nivers 100 mg 2-12 tablet by ity of tablet 00:00: mouth [place] 00 daily. Medical Branch thiamine 2019-06 Yes [id number] 100mg Take 1 U nivers 100 mg 2-12 tablet by ity of tablet 00:00: mouth [place] 00 daily. Medical Branch thiamine 2019-06 Yes [id number] 100mg Take 1 U nivers 100 mg 2-12 tablet by ity of tablet 00:00: mouth [place] 00 daily. Medical Branch acetylcyst/ 2019-06 Yes .314mg Take 0.314 Univers [id number]/l 2-11 mg by ity of evomefol 18:11: mouth. [place] (CEREFOLIN 31 Medical NAC ORAL) Branch aspirin 2019-06 Yes 81mg Take 81 mg Univ ers (ASPIR-LOW) 2-11 by mouth ity of 81 mg EC 18:11: daily. [place] tablet 31 Medical Branch mirtazapine 2019-06 Yes 15mg Take 15 mg Univers 15 mg 2-11 by mouth ity of tablet 18:11: at [place] [address] bedtime. Medical Branch metoprolol 2019-06 Yes 12.5mg Take 12.5 Univers tartrate 25 2-11 mg by ity of mg tablet 18:11: mouth 2 [place] 31 (two) Medical times Branch daily. atorvastati 2019-06 Yes 20mg Take 20 mg Univers n 20 mg 2-11 by mouth ity of tablet 18:11: at [place] [address] bedtime. Medical Branch acetylcyst/ 2019-06 Yes .314mg Take 0.314 Univers knioebT02/l 2-11 mg by ity of evomefol 18:11: mouth. [place] ([address] NAC ORAL) Branch aspirin 2019-06 Yes 81mg Take 81 mg Univ ers (ASPIR-LOW) 2-11 by mouth ity of 81 mg EC 18:11: daily. [place] [address] Medical Branch mirtazapine 2019-06 Yes 15mg Take 15 mg Univers 15 mg 2-11 by mouth ity of tablet 18:11: at [place] [address] bedtime. Medical Branch metoprolol 2019-06 Yes 12.5mg Take 12.5 Univers tartrate 25 2-11 mg by ity of mg tablet 18:11: mouth 2 [place] [address] (two) Medical times Branch daily. atorvastati 2019-06 Yes 20mg Take 20 mg Univers n 20 mg 2-11 by mouth ity of tablet 18:11: at [place] [address] bedtime. Medical Branch acetylcyst/ 2019-06 Yes .314mg Take 0.314 Univers [id number]/l 2-11 mg by ity of evomefol 18:11: mouth. [place] ([address] ORAL) Branch aspirin 2019-06 Yes 81mg Take 81 mg Univ ers (ASPIR-LOW) 2-11 by mouth ity of 81 mg EC 18:11: daily. [place] [address] Medical Branch mirtazapine 2019-06 Yes 15mg Take 15 mg Univers 15 mg 2-11 by mouth ity of tablet 18:11: at [place] [address] bedtime. Medical Branch metoprolol 2019-06 Yes 12.5mg Take 12.5 Univers tartrate 25 2-11 mg by ity of mg tablet 18:11: mouth 2 [place] [address] (two) Medical times [place] daily. atorvastati 2019-06 Yes 20mg Take 20 mg Univers n 20 mg 2-11 by mouth ity of tablet 18:11: at [place] [address] bedtime. Medical Branch acetylcyst/ 2019-06 Yes .314mg Take 0.314 Univers [id number]/l 2-11 mg by ity of evomefol 18:11: mouth. [place] ([address] ORAL) Branch aspirin 2019-06 Yes 81mg Take 81 mg Univ ers (ASPIR-LOW) 2-11 by mouth ity of 81 mg EC 18:11: daily. [place] [address] Medical Branch mirtazapine 2019-06 Yes 15mg Take 15 mg Univers 15 mg 2-11 by mouth ity of tablet 18:11: at [place] [address] bedtime. Medical Branch metoprolol 2019-06 Yes 12.5mg Take 12.5 Univers tartrate 25 2-11 mg by ity of mg tablet 18:11: mouth 2 [place] [address] (two) Medical times [place] daily. atorvastati 2019-06 Yes 20mg Take 20 mg Univers n 20 mg 2-11 by mouth ity of tablet 18:11: at [place] [address] bedtime. Medical Branch acetylcyst/ 2019-06 Yes .314mg Take 0.314 Univers [id number]/l 2-11 mg by ity of evomefol 18:11: mouth. [place] [facility] Branch aspirin 2019-06 Yes 81mg Take 81 mg Univ ers (ASPIR-LOW) 2-11 by mouth ity of 81 mg EC 18:11: daily. [place] [address] Medical Branch mirtazapine 2019-06 Yes 15mg Take 15 mg Univers 15 mg 2-11 by mouth ity of tablet 18:11: at [place] [address] bedtime. Medical Branch metoprolol 2019-06 Yes 12.5mg Take 12.5 Univers tartrate 25 2-11 mg by ity of mg tablet 18:11: mouth 2 [place] [address] (two) Medical times [place] daily. atorvastati 2019-06 Yes 20mg Take 20 mg Univers n 20 mg 2-11 by mouth ity of tablet 18:11: at [place] [address] bedtime. Medical Branch acetylcyst/ 2019-06 Yes .314mg Take 0.314 Univers [id number]/l 2-11 mg by ity of evomefol 18:11: mouth. [place] [facility] Branch aspirin 2019-06 Yes 81mg Take 81 mg Univ ers (ASPIR-LOW) 2-11 by mouth ity of 81 mg EC 18:11: daily. [place] [address] Medical Branch mirtazapine 2019-06 Yes 15mg Take 15 mg Univers 15 mg 2-11 by mouth ity of tablet 18:11: at [place] [address] bedtime. Medical Branch metoprolol 2019-06 Yes 12.5mg Take 12.5 Univers tartrate 25 2-11 mg by ity of mg tablet 18:11: mouth 2 [place] [address] (two) Medical times [place] daily. atorvastati 2019-06 Yes 20mg Take 20 mg Univers n 20 mg 2-11 by mouth ity of tablet 18:11: at [place] [address] bedtime. Medical Branch acetylcyst/ 2019-06 Yes .314mg Take 0.314 Univers [id number]/l 2-11 mg by ity of evomefol 18:11: mouth. [place] ([place] [address] Medical NAC ORAL) Branch aspirin 2019-06 Yes 81mg Take 81 mg Univ ers (ASPIR-LOW) 2-11 by mouth ity of 81 mg EC 18:11: daily. [place] [address] Medical Branch mirtazapine 2019-06 Yes 15mg Take 15 mg Univers 15 mg 2-11 by mouth ity of tablet 18:11: at [place] [address] bedtime. Medical Branch metoprolol 2019-06 Yes 12.5mg Take 12.5 Univers tartrate 25 2-11 mg by ity of mg tablet 18:11: mouth 2 [place] [address] (two) Medical times [place] daily. atorvastati 2019-06 Yes 20mg Take 20 mg Univers n 20 mg 2-11 by mouth ity of tablet 18:11: at [place] [address] bedtime. Medical Branch acetylcyst/ 2019-06 Yes .314mg Take 0.314 Univers [id number]/l 2-11 mg by ity of evomefol 18:11: mouth. [place] ([place] [address] Medical NAC ORAL) Branch aspirin 2019-06 Yes 81mg Take 81 mg Univ ers (ASPIR-LOW) 2-11 by mouth ity of 81 mg EC 18:11: daily. [place] [address] Medical Branch mirtazapine 2019-06 Yes 15mg Take 15 mg Univers 15 mg 2-11 by mouth ity of tablet 18:11: at [place] [address] bedtime. Medical Branch metoprolol 2019-06 Yes 12.5mg Take 12.5 Univers tartrate 25 2-11 mg by ity of mg tablet 18:11: mouth 2 [place] [address] (two) Medical times [place] daily. atorvastati 2019-06 Yes 20mg Take 20 mg Univers n 20 mg 2-11 by mouth ity of tablet 18:11: at [place] [address] bedtime. Medical Branch acetylcyst/ 2019-06 Yes .314mg Take 0.314 Univers [id number]/l 2-11 mg by ity of evomefol 18:11: mouth. [place] ([place] [address] Medical NAC ORAL) Branch aspirin 2019-06 Yes 81mg Take 81 mg Univ ers (ASPIR-LOW) 2-11 by mouth ity of 81 mg EC 18:11: daily. [place] [address] Medical Branch mirtazapine 2019-06 Yes 15mg Take 15 mg Univers 15 mg 2-11 by mouth ity of tablet 18:11: at [place] [address] bedtime. Medical Branch metoprolol 2019-06 Yes 12.5mg Take 12.5 Univers tartrate 25 2-11 mg by ity of mg tablet 18:11: mouth 2 [place] [address] (two) Medical times [place] daily. atorvastati 2019-06 Yes 20mg Take 20 mg [facility] n 20 mg 2-11 by mouth ity of tablet 18:11: at [place] [address] bedtime. Medical Branch acetylcyst/ 2019-06 Yes .314mg Take 0.314 [facility] [id number]/l 2-11 mg by ity of evomefol 18:11: mouth. [place] ([place] [address] Medical NAC ORAL) Branch aspirin 2019-06 Yes 81mg Take 81 mg [facility] ers (ASPIR-LOW) 2-11 by mouth ity of 81 mg EC 18:11: daily. [place] [address] Medical Branch mirtazapine 2019-06 Yes 15mg Take 15 mg [facility] 15 mg 2-11 by mouth ity of tablet 18:11: at [place] [address] bedtime. Medical Branch metoprolol 2019-06 Yes 12.5mg Take 12.5 [facility] tartrate 25 2-11 mg by ity of mg tablet 18:11: mouth 2 [place] [address] (two) Medical times [place] daily. atorvastati 2019-06 Yes 20mg Take 20 mg [facility] n 20 mg 2-11 by mouth ity of tablet 18:11: at [place] [address] bedtime. Medical Branch acetylcyst/ 2019-06 Yes .314mg Take 0.314 [facility] [id number]/l 2-11 mg by ity of evomefol 18:11: mouth. [place] ([place] [address] Medical NAC ORAL) Branch aspirin 2019-06 Yes 81mg Take 81 mg [facility] ers (ASPIR-LOW) 2-11 by mouth ity of 81 mg EC 18:11: daily. [place] [address] Medical Branch mirtazapine 2019-06 Yes 15mg Take 15 mg [facility] 15 mg 2-11 by mouth ity of tablet 18:11: at [place] [address] bedtime. Medical Branch metoprolol 2019-06 Yes 12.5mg Take 12.5 [facility] tartrate 25 2-11 mg by ity of mg tablet 18:11: mouth 2 [place] [address] ([facility]) Medical times [place] daily. atorvastati 2019-06 Yes 20mg Take 20 mg [facility] n 20 mg 2-11 by mouth ity of tablet 18:11: at [place] [address] bedtime. Medical Branch acetylcyst/ 2019-06 Yes .314mg Take 0.314 [facility] [id number]/l 2-11 mg by ity of evomefol 18:11: mouth. [place] ([place] [address] Medical NAC ORAL) Branch aspirin 2019-06 Yes 81mg Take 81 mg [facility] ers (ASPIR-LOW) 2-11 by mouth ity of 81 mg EC 18:11: daily. [place] [address] Medical Branch mirtazapine 2019-06 Yes 15mg Take 15 mg [facility] 15 mg 2-11 by mouth ity of tablet 18:11: at [place] [address] bedtime. Medical Branch metoprolol 2019-06 Yes 12.5mg Take 12.5 [facility] tartrate 25 2-11 mg by ity of mg tablet 18:11: mouth 2 [place] [address] ([facility]) Medical times [place] daily. atorvastati 2019-06 Yes 20mg Take 20 mg [facility] n 20 mg 2-11 by mouth ity of tablet 18:11: at [place] [address] bedtime. Medical Branch acetylcyst/ 2019-06 Yes .314mg Take 0.314 [facility] [id number]/l 2-11 mg by ity of evomefol 18:11: mouth. [place] ([place] [address] Medical NAC ORAL) Branch aspirin 2019-06 Yes 81mg Take 81 mg [facility] ers (ASPIR-LOW) 2-11 by mouth ity of 81 mg EC 18:11: daily. [place] [address] Medical Branch mirtazapine 2019-06 Yes 15mg Take 15 mg [facility] 15 mg 2-11 by mouth ity of tablet 18:11: at [place] [address] bedtime. Medical Branch metoprolol 2019-06 Yes 12.5mg Take 12.5 [facility] tartrate 25 2-11 mg by ity of mg tablet 18:11: mouth 2 [place] [address] ([facility]) Medical times [place] daily. atorvastati 2019-06 Yes 20mg Take 20 mg [facility] n 20 mg 2-11 by mouth ity of tablet 18:11: at [place] [address] bedtime. Medical Branch acetylcyst/ 2019-06 Yes .314mg Take 0.314 [facility] [id number]/l 2-11 mg by ity of evomefol 18:11: mouth. [place] ([place] [address] Medical NAC ORAL) Branch aspirin 2019-06 Yes 81mg Take 81 mg [facility] ers (ASPIR-LOW) 2-11 by mouth ity of 81 mg EC 18:11: daily. [place] [address] Medical Branch mirtazapine 2019-06 Yes 15mg Take 15 mg [facility] 15 mg 2-11 by mouth ity of tablet 18:11: at [place] [address] bedtime. Medical Branch metoprolol 2019-06 Yes 12.5mg Take 12.5 [facility] tartrate 25 2-11 mg by ity of mg tablet 18:11: mouth 2 [place] [address] (two) Medical times Branch daily. atorvastati 2019-06 Yes 20mg Take 20 mg [facility] n 20 mg 2-11 by mouth ity of tablet 18:11: at [place] [address] bedtime. Medical Branch acetylcyst/ 2019-06 Yes .314mg Take 0.314 [facility] [id number]/l 2-11 mg by ity of evomefol 18:11: mouth. [place] ([address] NAC ORAL) Branch aspirin 2019-06 Yes 81mg Take 81 mg [facility] ers (ASPIR-LOW) 2-11 by mouth ity of 81 mg EC 18:11: daily. [place] [address] Medical Branch mirtazapine 2019-06 Yes 15mg Take 15 mg [facility] 15 mg 2-11 by mouth ity of tablet 18:11: at [place] [address] bedtime. Medical Branch metoprolol 2019-06 Yes 12.5mg Take 12.5 [facility] tartrate 25 2-11 mg by ity of mg tablet 18:11: mouth 2 [place] [address] (two) Medical times [place] daily. atorvastati 2019-06 Yes 20mg Take 20 mg [facility] n 20 mg 2-11 by mouth ity of tablet 18:11: at [place] [address] bedtime. Medical Branch acetylcyst/ 2019-06 Yes .314mg Take 0.314 [facility] [id number]/l 2-11 mg by ity of evomefol 18:11: mouth. [place] ([address] NAC ORAL) Branch aspirin 2019-06 Yes 81mg Take 81 mg [facility] ers (ASPIR-LOW) 2-11 by mouth ity of 81 mg EC 18:11: daily. [place] [address] Medical Branch mirtazapine 2019-06 Yes 15mg Take 15 mg [facility] 15 mg 2-11 by mouth ity of tablet 18:11: at [place] [address] bedtime. Medical Branch metoprolol 2019-06 Yes 12.5mg Take 12.5 [facility] tartrate 25 2-11 mg by ity of mg tablet 18:11: mouth 2 [place] [address] (two) Medical times [place] daily. atorvastati 2019-06 Yes 20mg Take 20 mg [facility] n 20 mg 2-11 by mouth ity of tablet 18:11: at [place] [address] bedtime. Medical Branch acetylcyst/ 2019-06 Yes .314mg Take 0.314 [facility] [id number]/l 2-11 mg by ity of evomefol 18:11: mouth. [place] ([place] [address] Medical NAC ORAL) Branch aspirin 2019-06 Yes 81mg Take 81 mg [facility] ers (ASPIR-LOW) 2-11 by mouth ity of 81 mg EC 18:11: daily. [place] [address] Medical Branch mirtazapine 2019-06 Yes 15mg Take 15 mg [facility] 15 mg 2-11 by mouth ity of tablet 18:11: at [place] [address] bedtime. Medical Branch metoprolol 2019-06 Yes 12.5mg Take 12.5 [facility] tartrate 25 2-11 mg by ity of mg tablet 18:11: mouth 2 [place] [address] ([facility]) Medical times [place] daily. atorvastati 2019-06 Yes 20mg Take 20 mg [facility] n 20 mg 2-11 by mouth ity of tablet 18:11: at [place] [address] bedtime. Medical Branch acetylcyst/ 2019-06 Yes .314mg Take 0.314 [facility] [id number]/l 2-11 mg by ity of evomefol 18:11: mouth. [place] [facility] Branch aspirin 2019-06 Yes 81mg Take 81 mg [facility] ers (ASPIR-LOW) 2-11 by mouth ity of 81 mg EC 18:11: daily. [place] [address] Medical Branch mirtazapine 2019-06 Yes 15mg Take 15 mg [facility] 15 mg 2-11 by mouth ity of tablet 18:11: at [place] [address] bedtime. Medical Branch metoprolol 2019-06 Yes 12.5mg Take 12.5 [facility] tartrate 25 2-11 mg by ity of mg tablet 18:11: mouth 2 [place] [address] (two) Medical times [place] daily. atorvastati 2019-06 Yes 20mg Take 20 mg [facility] n 20 mg 2-11 by mouth ity of tablet 18:11: at [place] [address] bedtime. Medical Branch acetylcyst/ 2019-06 Yes .314mg Take 0.314 [facility] toseoqL48/l 2-11 mg by ity of evomefol 18:11: mouth. [place] ([place] [address] Medical NAC ORAL) Branch aspirin 2019-06 Yes 81mg Take 81 mg [facility] ers (ASPIR-LOW) 2-11 by mouth ity of 81 mg EC 18:11: daily. [place] [address] Medical Branch mirtazapine 2019-06 Yes 15mg Take 15 mg [facility] 15 mg 2-11 by mouth ity of tablet 18:11: at [place] [address] bedtime. Medical Branch metoprolol 2019-06 Yes 12.5mg Take 12.5 [facility] tartrate 25 2-11 mg by ity of mg tablet 18:11: mouth 2 [place] [address] (two) Medical times [place] daily. atorvastati 2019-06 Yes 20mg Take 20 mg [facility] n 20 mg 2-11 by mouth ity of tablet 18:11: at [place] [address] bedtime. Medical Branch acetylcyst/ 2019-06 Yes .314mg Take 0.314 [facility] [id number]/l 2-11 mg by ity of evomefol 18:11: mouth. [place] ([place] [address] Medical NAC ORAL) Branch aspirin 2019-06 Yes 81mg Take 81 mg [facility] ers (ASPIR-LOW) 2-11 by mouth ity of 81 mg EC 18:11: daily. [place] [address] Medical Branch mirtazapine 2019-06 Yes 15mg Take 15 mg [facility] 15 mg 2-11 by mouth ity of tablet 18:11: at [place] [address] bedtime. Medical Branch metoprolol 2019-06 Yes 12.5mg Take 12.5 [facility] tartrate 25 2-11 mg by ity of mg tablet 18:11: mouth 2 [place] [address] (two) Medical times [place] daily. atorvastati 2019-06 Yes 20mg Take 20 mg [facility] n 20 mg 2-11 by mouth ity of tablet 18:11: at [place] [address] bedtime. Medical Branch acetylcyst/ 2019-06 Yes .314mg Take 0.314 [facility] [id number]/l 2-11 mg by ity of evomefol 18:11: mouth. [place] ([address] NAC ORAL) Branch aspirin 2019-06 Yes 81mg Take 81 mg [facility] ers (ASPIR-LOW) 2-11 by mouth ity of 81 mg EC 18:11: daily. [place] [address] Medical Branch mirtazapine 2019-06 Yes 15mg Take 15 mg [facility] 15 mg 2-11 by mouth ity of tablet 18:11: at [place] [address] bedtime. Medical Branch metoprolol 2019-06 Yes 12.5mg Take 12.5 [facility] tartrate 25 2-11 mg by ity of mg tablet 18:11: mouth 2 [place] [address] (two) Medical times Branch daily. atorvastati 2019-06 Yes 20mg Take 20 mg [facility] n 20 mg 2-11 by mouth ity of tablet 18:11: at [place] [address] bedtime. Medical Branch acetylcyst/ 2019-06 Yes .314mg Take 0.314 [facility] jgxewnR03/l 2-11 mg by ity of evomefol 18:11: mouth. [place] ([place] [address] Medical NAC ORAL) Branch aspirin 2019-06 Yes 81mg Take 81 mg [facility] ers (ASPIR-LOW) 2-11 by mouth ity of 81 mg EC 18:11: daily. [place] [address] Medical Branch mirtazapine 2019-06 Yes 15mg Take 15 mg [facility] 15 mg 2-11 by mouth ity of tablet 18:11: at [place] [address] bedtime. Medical Branch metoprolol 2019-06 Yes 12.5mg Take 12.5 [facility] tartrate 25 2-11 mg by ity of mg tablet 18:11: mouth 2 [place] [address] (two) Medical times [place] daily. atorvastati 2019-06 Yes 20mg Take 20 mg [facility] n 20 mg 2-11 by mouth ity of tablet 18:11: at [place] [address] bedtime. Medical Branch acetylcyst/ 2019-06 Yes .314mg Take 0.314 [facility] [id number]/l 2-11 mg by ity of evomefol 18:11: mouth. [place] ([address] NAC ORAL) Branch aspirin 2019-06 Yes 81mg Take 81 mg [facility] ers (ASPIR-LOW) 2-11 by mouth ity of 81 mg EC 18:11: daily. [place] [address] Medical Branch mirtazapine 2019-06 Yes 15mg Take 15 mg [facility] 15 mg 2-11 by mouth ity of tablet 18:11: at [place] [address] bedtime. Medical Branch metoprolol 2019-06 Yes 12.5mg Take 12.5 [facility] tartrate 25 2-11 mg by ity of mg tablet 18:11: mouth 2 [place] [address] ([facility]) Medical times [place] daily. atorvastati 2019-06 Yes 20mg Take 20 mg [facility] n 20 mg 2-11 by mouth ity of tablet 18:11: at [place] [address] bedtime. Medical Branch acetylcyst/ 2019-06 Yes .314mg Take 0.314 [facility] amwmanS95/l 2-11 mg by ity of evomefol 18:11: mouth. [place] ([address] NAC ORAL) Branch aspirin 2019-06 Yes 81mg Take 81 mg [facility] ers (ASPIR-LOW) 2-11 by mouth ity of 81 mg EC 18:11: daily. [place] [address] Medical Branch mirtazapine 2019-06 Yes 15mg Take 15 mg [facility] 15 mg 2-11 by mouth ity of tablet 18:11: at [place] [address] bedtime. Medical Branch metoprolol 2019-06 Yes 12.5mg Take 12.5 [facility] tartrate 25 2-11 mg by ity of mg tablet 18:11: mouth 2 [place] [address] ([facility]) Medical times [place] daily. atorvastati 2019-06 Yes 20mg Take 20 mg [facility] n 20 mg 2-11 by mouth ity of tablet 18:11: at [place] [address] bedtime. Medical Branch acetylcyst/ 2019-06 Yes .314mg Take 0.314 [facility] weupqaN34/l 2-11 mg by ity of evomefol 18:11: mouth. [place] ([address] NAC ORAL) Branch aspirin 2019-06 Yes 81mg Take 81 mg [facility] ers (ASPIR-LOW) 2-11 by mouth ity of 81 mg EC 18:11: daily. [place] [address] Medical Branch mirtazapine 2019-06 Yes 15mg Take 15 mg [facility] 15 mg 2-11 by mouth ity of tablet 18:11: at [place] [address] bedtime. Medical Branch metoprolol 2019-06 Yes 12.5mg Take 12.5 [facility] tartrate 25 2-11 mg by ity of mg tablet 18:11: mouth 2 [place] [address] ([facility]) Medical times [place] daily. atorvastati 2019-06 Yes 20mg Take 20 mg [facility] n 20 mg 2-11 by mouth ity of tablet 18:11: at [place] [address] bedtime. Medical Branch acetylcyst/ 2019-06 Yes .314mg Take 0.314 [facility] avmwwfO02/l 2-11 mg by ity of evomefol 18:11: mouth. [place] ([address] NAC ORAL) Branch aspirin 2019-06 Yes 81mg Take 81 mg [facility] ers (ASPIR-LOW) 2-11 by mouth ity of 81 mg EC 18:11: daily. [place] [address] Medical Branch mirtazapine 2019-06 Yes 15mg Take 15 mg [facility] 15 mg 2-11 by mouth ity of tablet 18:11: at [place] [address] bedtime. Medical Branch metoprolol 2019-06 Yes 12.5mg Take 12.5 [facility] tartrate 25 2-11 mg by ity of mg tablet 18:11: mouth 2 [place] [address] (two) Medical times [place] daily. atorvastati 2019-06 Yes 20mg Take 20 mg [facility] n 20 mg 2-11 by mouth ity of tablet 18:11: at [place] [address] bedtime. Medical Branch acetylcyst/ 2019-06 Yes .314mg Take 0.314 [facility] dopegfN35/l 2-11 mg by ity of evomefol 18:11: mouth. [place] ([address] ORAL) Branch aspirin 2019-06 Yes 81mg Take 81 mg [facility] ers (ASPIR-LOW) 2-11 by mouth ity of 81 mg EC 18:11: daily. [place] [address] Medical Branch mirtazapine 2019-06 Yes 15mg Take 15 mg [facility] 15 mg 2-11 by mouth ity of tablet 18:11: at [place] [address] bedtime. Medical Branch metoprolol 2019-06 Yes 12.5mg Take 12.5 [facility] tartrate 25 2-11 mg by ity of mg tablet 18:11: mouth 2 [place] [address] (two) Medical times [place] daily. atorvastati 2019-06 Yes 20mg Take 20 mg [facility] n 20 mg 2-11 by mouth ity of tablet 18:11: at [place] [address] bedtime. Medical Branch acetylcyst/ 2019-06 Yes .314mg Take 0.314 [facility] banzatU89/l 2-11 mg by ity of evomefol 18:11: mouth. [place] ([address] NAC ORAL) Branch aspirin 2019-06 Yes 81mg Take 81 mg [facility] ers (ASPIR-LOW) 2-11 by mouth ity of 81 mg EC 18:11: daily. [place] [address] Medical Branch mirtazapine 2019-06 Yes 15mg Take 15 mg [facility] 15 mg 2-11 by mouth ity of tablet 18:11: at [place] [address] bedtime. Medical Branch metoprolol 2019-06 Yes 12.5mg Take 12.5 [facility] tartrate 25 2-11 mg by ity of mg tablet 18:11: mouth 2 [place] [address] (two) Medical times [place] daily. atorvastati 2019-06 Yes 20mg Take 20 mg [facility] n 20 mg 2-11 by mouth ity of tablet 18:11: at [place] [address] bedtime. Medical Branch acetylcyst/ 2019-06 Yes .314mg Take 0.314 [facility] [id number]/l 2-11 mg by ity of evomefol 18:11: mouth. [place] ([place] [address] Medical NAC ORAL) Branch aspirin 2019-06 Yes 81mg Take 81 mg [facility] ers (ASPIR-LOW) 2-11 by mouth ity of 81 mg EC 18:11: daily. [place] [address] Medical Branch mirtazapine 2019-06 Yes 15mg Take 15 mg [facility] 15 mg 2-11 by mouth ity of tablet 18:11: at [place] [address] bedtime. Medical Branch metoprolol 2019-06 Yes 12.5mg Take 12.5 [facility] tartrate 25 2-11 mg by ity of mg tablet 18:11: mouth 2 [place] [address] (two) Medical times [place] daily. atorvastati 2019-06 Yes 20mg Take 20 mg [facility] n 20 mg 2-11 by mouth ity of tablet 18:11: at [place] [address] bedtime. Medical Branch acetylcyst/ 2019-06 Yes .314mg Take 0.314 [facility] [id number]/l 2-11 mg by ity of evomefol 18:11: mouth. [place] [facility] Branch aspirin 2019-06 Yes 81mg Take 81 mg [facility] ers (ASPIR-LOW) 2-11 by mouth ity of 81 mg EC 18:11: daily. [place] [address] Medical Branch mirtazapine 2019-06 Yes 15mg Take 15 mg [facility] 15 mg 2-11 by mouth ity of tablet 18:11: at [place] [address] bedtime. Medical Branch metoprolol 2019-06 Yes 12.5mg Take 12.5 [facility] tartrate 25 2-11 mg by ity of mg tablet 18:11: mouth 2 [place] [address] (two) Medical times [place] daily. atorvastati 2019-06 Yes 20mg Take 20 mg [facility] n 20 mg 2-11 by mouth ity of tablet 18:11: at [place] [address] bedtime. Medical Branch acetylcyst/ 2019-06 Yes .314mg Take 0.314 [facility] [id number]/l 2-11 mg by ity of evomefol 18:11: mouth. [place] ([place] [address] Medical NAC ORAL) Branch aspirin 2019-06 Yes 81mg Take 81 mg [facility] ers (ASPIR-LOW) 2-11 by mouth ity of 81 mg EC 18:11: daily. [place] [address] Medical Branch mirtazapine 2019-06 Yes 15mg Take 15 mg [facility] 15 mg 2-11 by mouth ity of tablet 18:11: at [place] [address] bedtime. Medical Branch metoprolol 2019-06 Yes 12.5mg Take 12.5 [facility] tartrate 25 2-11 mg by ity of mg tablet 18:11: mouth 2 [place] [address] (two) Medical times [place] daily. atorvastati 2019-06 Yes 20mg Take 20 mg [facility] n 20 mg 2-11 by mouth ity of tablet 18:11: at [place] [address] bedtime. Medical Branch acetylcyst/ 2019-06 Yes .314mg Take 0.314 [facility] hphzyvA87/l 2-11 mg by ity of evomefol 18:11: mouth. [place] ([place] [address] Medical NAC ORAL) Branch aspirin 2019-06 Yes 81mg Take 81 mg [facility] ers (ASPIR-LOW) 2-11 by mouth ity of 81 mg EC 18:11: daily. [place] [address] Medical Branch mirtazapine 2019-06 Yes 15mg Take 15 mg [facility] 15 mg 2-11 by mouth ity of tablet 18:11: at [place] [address] bedtime. Medical Branch metoprolol 2019-06 Yes 12.5mg Take 12.5 [facility] tartrate 25 2-11 mg by ity of mg tablet 18:11: mouth 2 [place] [address] (two) Medical times [place] daily. atorvastati 2019-06 Yes 20mg Take 20 mg [facility] n 20 mg 2-11 by mouth ity of tablet 18:11: at [place] [address] bedtime. Medical Branch acetylcyst/ 2019-06 Yes .314mg Take 0.314 [facility] mhipquE75/l 2-11 mg by ity of evomefol 18:11: mouth. [place] ([address] NAC ORAL) Branch aspirin 2019-06 Yes 81mg Take 81 mg Univ ers (ASPIR-LOW) 2-11 by mouth ity of 81 mg EC 18:11: daily. [place] [address] Medical Branch mirtazapine 2019-06 Yes 15mg Take 15 mg [facility] 15 mg 2-11 by mouth ity of tablet 18:11: at [place] [address] bedtime. Medical Branch metoprolol 2019-06 Yes 12.5mg Take 12.5 [facility] tartrate 25 2-11 mg by ity of mg tablet 18:11: mouth 2 [place] [address] (two) Medical times Branch daily. atorvastati 2019-06 Yes 20mg Take 20 mg [facility] n 20 mg 2-11 by mouth ity of tablet 18:11: at [place] [address] bedtime. Medical Branch acetylcyst/ 2019-06 Yes .314mg Take 0.314 [facility] [id number]/l 2-11 mg by ity of evomefol 18:11: mouth. [place] ([place] [address] Medical NAC ORAL) Branch aspirin 2019-06 Yes 81mg Take 81 mg Univ ers (ASPIR-LOW) 2-11 by mouth ity of 81 mg EC 18:11: daily. [place] [address] Medical Branch mirtazapine 2019-06 Yes 15mg Take 15 mg [facility] 15 mg 2-11 by mouth ity of tablet 18:11: at [place] [address] bedtime. Medical Branch metoprolol 2019-06 Yes 12.5mg Take 12.5 [facility] tartrate 25 2-11 mg by ity of mg tablet 18:11: mouth 2 [place] [address] (two) Medical times [place] daily. atorvastati 2019-06 Yes 20mg Take 20 mg [facility] n 20 mg 2-11 by mouth ity of tablet 18:11: at [place] [address] bedtime. Medical Branch acetylcyst/ 2019-06 Yes .314mg Take 0.314 [facility] fgybndA12/l 2-11 mg by ity of evomefol 18:11: mouth. [place] [facility] Branch aspirin 2019-06 Yes 81mg Take 81 mg [facility] ers (ASPIR-LOW) 2-11 by mouth ity of 81 mg EC 18:11: daily. [place] [address] Medical Branch mirtazapine 2019-06 Yes 15mg Take 15 mg [facility] 15 mg 2-11 by mouth ity of tablet 18:11: at [place] [address] bedtime. Medical Branch metoprolol 2019-06 Yes 12.5mg Take 12.5 [facility] tartrate 25 2-11 mg by ity of mg tablet 18:11: mouth 2 [place] [address] (two) Medical times [place] daily. atorvastati 2019-06 Yes 20mg Take 20 mg [facility] n 20 mg 2-11 by mouth ity of tablet 18:11: at [place] [address] bedtime. Medical Branch acetylcyst/ 2019-06 Yes .314mg Take 0.314 [facility] [id number]/l 2-11 mg by ity of evomefol 18:11: mouth. [place] ([place] [address] Medical NAC ORAL) Branch aspirin 2019-06 Yes 81mg Take 81 mg [facility] ers (ASPIR-LOW) 2-11 by mouth ity of 81 mg EC 18:11: daily. [place] [address] Medical Branch mirtazapine 2019-06 Yes 15mg Take 15 mg [facility] 15 mg 2-11 by mouth ity of tablet 18:11: at [place] [address] bedtime. Medical Branch metoprolol 2019-06 Yes 12.5mg Take 12.5 [facility] tartrate 25 2-11 mg by ity of mg tablet 18:11: mouth 2 [place] [address] ([facility]) Medical times [place] daily. atorvastati 2019-06 Yes 20mg Take 20 mg [facility] n 20 mg 2-11 by mouth ity of tablet 18:11: at [place] [address] bedtime. Medical Branch acetylcyst/ 2019-06 Yes .314mg Take 0.314 [facility] [id number]/l 2-11 mg by ity of evomefol 18:11: mouth. [place] ([place] [address] Medical NAC ORAL) Branch aspirin 2019-06 Yes 81mg Take 81 mg [facility] ers (ASPIR-LOW) 2-11 by mouth ity of 81 mg EC 18:11: daily. [place] [address] Medical Branch mirtazapine 2019-06 Yes 15mg Take 15 mg [facility] 15 mg 2-11 by mouth ity of tablet 18:11: at [place] [address] bedtime. Medical Branch metoprolol 2019-06 Yes 12.5mg Take 12.5 [facility] tartrate 25 2-11 mg by ity of mg tablet 18:11: mouth 2 [place] [address] (two) Medical times Branch daily. atorvastati 2019-06 Yes 20mg Take 20 mg [facility] n 20 mg 2-11 by mouth ity of tablet 18:11: at [place] [address] bedtime. Medical Branch acetylcyst/ 2019-06 Yes .314mg Take 0.314 [facility] [id number]/l 2-11 mg by ity of evomefol 18:11: mouth. [place] ([place] [address] Medical NAC ORAL) Branch aspirin 2019-06 Yes 81mg Take 81 mg [facility] ers (ASPIR-LOW) 2-11 by mouth ity of 81 mg EC 18:11: daily. [place] [address] Medical Branch mirtazapine 2019-06 Yes 15mg Take 15 mg [facility] 15 mg 2-11 by mouth ity of tablet 18:11: at [place] [address] bedtime. Medical Branch metoprolol 2019-06 Yes 12.5mg Take 12.5 [facility] tartrate 25 2-11 mg by ity of mg tablet 18:11: mouth 2 [place] [address] (two) Medical times [place] daily. atorvastati 2019-06 Yes 20mg Take 20 mg [facility] n 20 mg 2-11 by mouth ity of tablet 18:11: at [place] [address] bedtime. Medical Branch acetylcyst/ 2019-06 Yes .314mg Take 0.314 [facility] [id number]/l 2-11 mg by ity of evomefol 18:11: mouth. [place] ([address] NAC ORAL) Branch aspirin 2019-06 Yes 81mg Take 81 mg Univ ers (ASPIR-LOW) 2-11 by mouth ity of 81 mg EC 18:11: daily. [place] [address] Medical Branch mirtazapine 2019-06 Yes 15mg Take 15 mg [facility] 15 mg 2-11 by mouth ity of tablet 18:11: at [place] [address] bedtime. Medical Branch metoprolol 2019-06 Yes 12.5mg Take 12.5 [facility] tartrate 25 2-11 mg by ity of mg tablet 18:11: mouth 2 [place] [address] (two) Medical times [place] daily. atorvastati 2019-06 Yes 20mg Take 20 mg [facility] n 20 mg 2-11 by mouth ity of tablet 18:11: at [place] [address] bedtime. Medical Branch acetylcyst/ 2019-06 Yes .314mg Take 0.314 [facility] [id number]/l 2-11 mg by ity of evomefol 18:11: mouth. [place] ([address] NAC ORAL) Branch aspirin 2019-06 Yes 81mg Take 81 mg Univ ers (ASPIR-LOW) 2-11 by mouth ity of 81 mg EC 18:11: daily. [place] [address] Medical Branch mirtazapine 2019-06 Yes 15mg Take 15 mg [facility] 15 mg 2-11 by mouth ity of tablet 18:11: at [place] [address] bedtime. Medical Branch metoprolol 2019-06 Yes 12.5mg Take 12.5 [facility] tartrate 25 2-11 mg by ity of mg tablet 18:11: mouth 2 [place] [address] (two) Medical times [place] daily. atorvastati 2019-06 Yes 20mg Take 20 mg [facility] n 20 mg 2-11 by mouth ity of tablet 18:11: at [place] [address] bedtime. Medical Branch acetylcyst/ 2019-06 Yes .314mg Take 0.314 [facility] [id number]/l 2-11 mg by ity of evomefol 18:11: mouth. [place] ([place] [address] Medical NAC ORAL) Branch aspirin 2019-06 Yes 81mg Take 81 mg Univ ers (ASPIR-LOW) 2-11 by mouth ity of 81 mg EC 18:11: daily. [place] [address] Medical Branch mirtazapine 2019-06 Yes 15mg Take 15 mg [facility] 15 mg 2-11 by mouth ity of tablet 18:11: at [place] [address] bedtime. Medical Branch metoprolol 2019-06 Yes 12.5mg Take 12.5 [facility] tartrate 25 2-11 mg by ity of mg tablet 18:11: mouth 2 [place] [address] ([facility]) Medical times [place] daily. atorvastati 2019-06 Yes 20mg Take 20 mg [facility] n 20 mg 2-11 by mouth ity of tablet 18:11: at [place] [address] bedtime. Medical Branch acetylcyst/ 2019-06 Yes .314mg Take 0.314 [facility] [id number]/l 2-11 mg by ity of evomefol 18:11: mouth. [place] [facility] Branch aspirin 2019-06 Yes 81mg Take 81 mg Univ ers (ASPIR-LOW) 2-11 by mouth ity of 81 mg EC 18:11: daily. [place] [address] Medical Branch mirtazapine 2019-06 Yes 15mg Take 15 mg [facility] 15 mg 2-11 by mouth ity of tablet 18:11: at [place] [address] bedtime. Medical Branch metoprolol 2019-06 Yes 12.5mg Take 12.5 [facility] tartrate 25 2-11 mg by ity of mg tablet 18:11: mouth 2 [place] [address] (two) Medical times [place] daily. atorvastati 2019-06 Yes 20mg Take 20 mg [facility] 20 mg 2-11 by mouth ity of tablet 18:11: at [place] [address] bedtime. Medical Branch acetylcyst/ 2019- Yes .314mg Take 0.314 [facility] [id number] 2-11 mg by ity of evomefol 18:11: mouth. [place] (CEREFOLIN 31 Medical NAC ORAL) Branch aspirin 2019- Yes 81mg Take 81 mg [facility] ers (ASPIR-LOW) 2-11 by mouth ity of 81 mg EC 18:11: daily. [place] tablet Medical Branch mirtazapine 2019- Yes 15mg Take 15 mg [facility] 15 mg 2-11 by mouth ity of tablet 18:11: at [place] [address] bedtime. Medical Branch metoprolol 2019-06 Yes 12.5mg Take 12.5 [facility] tartrate 25 2-11 mg by ity of mg tablet 18:11: mouth 2 [place] [address] (two) Medical times Branch daily. atorvastati 2019-06 Yes 20mg Take 20 mg [facility] n 20 mg 2-11 by mouth ity of tablet 18:11: at [place] [address] bedtime. Medical Branch TOPIRAMATE 2020-0 Yes [id number] TAKE 1 [facility] 25 mg 5-29 TABLET BY ity of tablet 00:00: MOUTH [place] 00 TWICE A Medical DAY Branch TOPIRAMATE 2020-0 Yes [id number] TAKE 1 [facility] 25 mg 5-29 TABLET BY ity of tablet 00:00: [facility] 00 TWICE A Medical DAY Branch TOPIRAMATE 2020-0 Yes [id number] TAKE 1 [facility] 25 mg 5-29 TABLET BY ity of tablet 00:00: [facility] 00 TWICE A Medical DAY Branch TOPIRAMATE 2020-0 Yes [id number] TAKE 1 [facility] 25 mg 5-29 TABLET BY ity of tablet 00:00: MOUTH [place] 00 TWICE A Medical DAY Branch TOPIRAMATE 2020-0 Yes [id number] TAKE 1 [facility] 25 mg 5-29 TABLET BY ity of tablet 00:00: MOUTH [place] 00 TWICE A Medical DAY Branch TOPIRAMATE 2020-0 Yes [id number] TAKE 1 [facility] 25 mg 5-29 TABLET BY ity of tablet 00:00: MOUTH [place] 00 TWICE A Medical DAY Branch TOPIRAMATE 2020-0 Yes [id number] TAKE 1 [facility] 25 mg 5-29 TABLET BY ity of tablet 00:00: MOUTH [place] 00 TWICE A Medical DAY Branch TOPIRAMATE 2020-0 Yes [id number] TAKE 1 [facility] 25 mg 5-29 TABLET BY ity of tablet 00:00: MOUTH 00 TWICE A Medical DAY Branch TOPIRAMATE 2020-0 Yes [id number] TAKE 1 [facility] 25 mg 5-29 TABLET BY ity of tablet 00:00: MOUTH 00 TWICE A Medical DAY Branch TOPIRAMATE 2020-0 Yes [id number] TAKE 1 [facility] 25 mg 5-29 TABLET BY ity of tablet 00:00: MOUTH TWICE A Medical DAY Branch TOPIRAMATE 2020-0 Yes [id number] TAKE 1 [facility] 25 mg 5-29 TABLET BY ity of tablet 00:00: MOUTH TWICE A Medical DAY Branch TOPIRAMATE 2020-0 Yes [id number] TAKE 1 [facility] 25 mg 5-29 TABLET BY ity of tablet 00:00: MOUTH TWICE A Medical DAY Branch TOPIRAMATE 2020-0 Yes [id number] TAKE 1 [facility] 25 mg 5-29 TABLET BY ity of tablet 00:00: MOUTH TWICE A Medical DAY Branch TOPIRAMATE 2020-0 Yes [id number] TAKE 1 [facility] 25 mg 5-29 TABLET BY ity of tablet 00:00: MOUTH TWICE A Medical DAY Branch TOPIRAMATE 2020-0 Yes [id number] TAKE 1 [facility] 25 mg 5-29 TABLET BY ity of tablet 00:00: MOUTH 00 TWICE A Medical DAY Branch TOPIRAMATE 2020-0 Yes [id number] TAKE 1 [facility] 25 mg 5-29 TABLET BY ity of tablet 00:00: MOUTH TWICE A Medical DAY Branch TOPIRAMATE 2020-0 Yes [id number] TAKE 1 [facility] 25 mg 5-29 TABLET BY ity of tablet 00:00: MOUTH 00 TWICE A Medical DAY Branch TOPIRAMATE 2020-0 Yes [id number] TAKE 1 [facility] 25 mg 5-29 TABLET BY ity of tablet 00:00: MOUTH 00 TWICE A Medical DAY Branch TOPIRAMATE 2020-0 Yes [id number] TAKE 1 [facility] 25 mg 5-29 TABLET BY ity of tablet 00:00: MOUTH 00 TWICE A Medical DAY Branch TOPIRAMATE 2020-0 Yes [id number] TAKE 1 [facility] 25 mg 5-29 TABLET BY ity of tablet 00:00: MOUTH 00 TWICE A Medical DAY Branch TOPIRAMATE 2020-0 Yes [id number] TAKE 1 [facility] 25 mg 5-29 TABLET BY ity of tablet 00:00: MOUTH TWICE A Medical DAY Branch TOPIRAMATE 2020-0 Yes [id number] TAKE 1 [facility] 25 mg 5-29 TABLET BY ity of tablet 00:00: MOUTH TWICE A Medical DAY Branch TOPIRAMATE 2020-0 Yes [id number] TAKE 1 [facility] 25 mg 5-29 TABLET BY ity of tablet 00:00: MOUTH TWICE A Medical DAY Branch TOPIRAMATE 2020-0 Yes [id number] TAKE 1 [facility] 25 mg 5-29 TABLET BY ity of tablet 00:00: MOUTH TWICE A Medical DAY Branch TOPIRAMATE 2020-0 Yes [id number] TAKE 1 [facility] 25 mg 5-29 TABLET BY ity of tablet 00:00: MOUTH TWICE A Medical DAY Branch TOPIRAMATE 2020-0 Yes [id number] TAKE 1 [facility] 25 mg 5-29 TABLET BY ity of tablet 00:00: MOUTH TWICE A Medical DAY Branch TOPIRAMATE 2020-0 Yes [id number] TAKE 1 [facility] 25 mg 5-29 TABLET BY ity of tablet 00:00: MOUTH TWICE A Medical DAY Branch TOPIRAMATE 2020-0 Yes [id number] TAKE 1 [facility] 25 mg 5-29 TABLET BY ity of tablet 00:00: MOUTH TWICE A Medical DAY Branch TOPIRAMATE 2020-0 Yes [id number] TAKE 1 [facility] 25 mg 5-29 TABLET BY ity of tablet 00:00: MOUTH TWICE A Medical DAY Branch TOPIRAMATE 2020-0 Yes [id number] TAKE 1 [facility] 25 mg 5-29 TABLET BY ity of tablet 00:00: MOUTH TWICE A Medical DAY Branch TOPIRAMATE 2020-0 Yes [id number] TAKE 1 [facility] 25 mg 5-29 TABLET BY ity of tablet 00:00: MOUTH TWICE A Medical DAY Branch TOPIRAMATE 2020-0 Yes [id number] TAKE 1 [facility] 25 mg 5-29 TABLET BY ity of tablet 00:00: MOUTH 00 TWICE A Medical DAY Branch TOPIRAMATE 2020-0 Yes [id number] TAKE 1 [facility] 25 mg 5-29 TABLET BY ity of tablet 00:00: MOUTH 00 TWICE A Medical DAY Branch TOPIRAMATE 2020-0 Yes [id number] TAKE 1 [facility] 25 mg 5-29 TABLET BY ity of tablet 00:00: MOUTH 00 TWICE A Medical DAY Branch TOPIRAMATE 2020-0 Yes [id number] TAKE 1 [facility] 25 mg 5-29 TABLET BY ity of tablet 00:00: MOUTH 00 TWICE A Medical DAY Branch TOPIRAMATE 2020-0 Yes [id number] TAKE 1 [facility] 25 mg 5-29 TABLET BY ity of tablet 00:00: MOUTH 00 TWICE A Medical DAY Branch TOPIRAMATE 2020-0 Yes [id number] TAKE 1 [facility] 25 mg 5-29 TABLET BY ity of tablet 00:00: MOUTH TWICE A Medical DAY Branch TOPIRAMATE 2020-0 Yes [id number] TAKE 1 [facility] 25 mg 5-29 TABLET BY ity of tablet 00:00: MOUTH 00 TWICE A Medical DAY Branch TOPIRAMATE 2020-0 Yes [id number] TAKE 1 [facility] 25 mg 5-29 TABLET BY ity of tablet 00:00: MOUTH TWICE A Medical DAY Branch TOPIRAMATE 2020-0 Yes [id number] TAKE 1 [facility] 25 mg 5-29 TABLET BY ity of tablet 00:00: MOUTH TWICE A Medical DAY Branch TOPIRAMATE 2020-0 Yes [id number] TAKE 1 [facility] 25 mg 5-29 TABLET BY ity of tablet 00:00: MOUTH TWICE A Medical DAY Branch TOPIRAMATE 2020-0 Yes [id number] TAKE 1 [facility] 25 mg 5-29 TABLET BY ity of tablet 00:00: MOUTH TWICE A Medical DAY Branch TOPIRAMATE 2020-0 Yes [id number] TAKE 1 [facility] 25 mg 5-29 TABLET BY ity of tablet 00:00: MOUTH 00 TWICE A Medical DAY Branch topiramate 2020-0 Yes [id number] 50mg Take 1 [facility] 50 mg 2-05 tablet by ity of tablet 00:00: mouth (two) Medical times Branch daily. topiramate 2020-0 Yes [id number] 50mg Take 1 [facility] 50 mg 2-05 tablet by ity of tablet 00:00: mouth 2 00 (two) Medical times Branch daily. topiramate 2020-0 Yes [id number] 50mg Take 1 [facility] 50 mg 2-05 tablet by ity of tablet 00:00: mouth 2 (two) Medical times Branch daily. topiramate 2020-0 Yes [id number] 50mg Take 1 [facility] 50 mg 2-05 tablet by ity of tablet 00:00: mouth 2 (two) Medical times Branch daily. topiramate 2020-0 Yes [id number] 50mg Take 1 [facility] 50 mg 2-05 tablet by ity of tablet 00:00: mouth (two) Medical times Branch daily. topiramate 2020-0 Yes [id number] 50mg Take 1 [facility] 50 mg 2-05 tablet by ity of tablet 00:00: mouth (two) Medical times Branch daily. topiramate 2020-0 Yes [id number] 50mg Take 1 [facility] 50 mg 2-05 tablet by ity of tablet 00:00: mouth (two) Medical times Branch daily. topiramate 2020-0 Yes [id number] 50mg Take 1 [facility] 50 mg 2-05 tablet by ity of tablet 00:00: mouth (two) Medical times Branch daily. topiramate 2020-0 Yes [id number] 50mg Take 1 [facility] 50 mg 2-05 tablet by ity of tablet 00:00: mouth (two) Medical times Branch daily. topiramate 2020-0 Yes [id number] 50mg Take 1 [facility] 50 mg 2-05 tablet by ity of tablet 00:00: mouth (two) Medical times Branch daily. topiramate 2020-0 Yes [id number] 50mg Take 1 [facility] 50 mg 2-05 tablet by ity of tablet 00:00: mouth (two) Medical times Branch daily. topiramate 2020-0 Yes [id number] 50mg Take 1 [facility] 50 mg 2-05 tablet by ity of tablet 00:00: mouth (two) Medical times Branch daily. topiramate 2020-0 Yes [id number] 50mg Take 1 [facility] 50 mg 2-05 tablet by ity of tablet 00:00: mouth (two) Medical times Branch daily. topiramate 2020-0 Yes [id number] 50mg Take 1 [facility] 50 mg 2-05 tablet by ity of tablet 00:00: mouth (two) Medical times Branch daily. topiramate 2020-0 Yes [id number] 50mg Take 1 [facility] 50 mg 2-05 tablet by ity of tablet 00:00: mouth (two) Medical times Branch daily. topiramate 2020-0 Yes [id number] 50mg Take 1 [facility] 50 mg 2-05 tablet by ity of tablet 00:00: mouth (two) Medical times Branch daily. topiramate 2020-0 Yes [id number] 50mg Take 1 [facility] 50 mg 2-05 tablet by ity of tablet 00:00: mouth (two) Medical times Branch daily. topiramate 2020-0 Yes [id number] 50mg Take 1 [facility] 50 mg 2-05 tablet by ity of tablet 00:00: mouth (two) Medical times Branch daily. topiramate 2020-0 Yes [id number] 50mg Take 1 [facility] 50 mg 2-05 tablet by ity of tablet 00:00: mouth (two) Medical times Branch daily. topiramate 2020-0 Yes [id number] 50mg Take 1 [facility] 50 mg 2-05 tablet by ity of tablet 00:00: mouth (two) Medical times Branch daily. topiramate 2020-0 Yes [id number] 50mg Take 1 [facility] 50 mg 2-05 tablet by ity of tablet 00:00: mouth (two) Medical times Branch daily. topiramate 2020-0 Yes [id number] 50mg Take 1 [facility] 50 mg 2-05 tablet by ity of tablet 00:00: mouth (two) Medical times Branch daily. topiramate 2020-0 Yes [id number] 50mg Take 1 [facility] 50 mg 2-05 tablet by ity of tablet 00:00: mouth (two) Medical times Branch daily. topiramate 2020-0 Yes [id number] 50mg Take 1 [facility] 50 mg 2-05 tablet by ity of tablet 00:00: mouth (two) Medical times Branch daily. topiramate 2020-0 Yes [id number] 50mg Take 1 [facility] 50 mg 2-05 tablet by ity of tablet 00:00: mouth (two) Medical times Branch daily. topiramate 2020-0 Yes [id number] 50mg Take 1 [facility] 50 mg 2-05 tablet by ity of tablet 00:00: mouth (two) Medical times Branch daily. topiramate 2020-0 Yes [id number] 50mg Take 1 [facility] 50 mg 2-05 tablet by ity of tablet 00:00: mouth (two) Medical times Branch daily. topiramate 2020-0 Yes [id number] 50mg Take 1 [facility] 50 mg 2-05 tablet by ity of tablet 00:00: mouth (two) Medical times Branch daily. topiramate 2020-0 Yes [id number] 50mg Take 1 [facility] 50 mg 2-05 tablet by ity of tablet 00:00: mouth (two) Medical times Branch daily. topiramate 2020-0 Yes [id number] 50mg Take 1 [facility] 50 mg 2-05 tablet by ity of tablet 00:00: mouth (two) Medical times Branch daily. topiramate 2020-0 Yes [id number] 50mg Take 1 [facility] 50 mg 2-05 tablet by ity of tablet 00:00: mouth (two) Medical times Branch daily. topiramate 2020-0 Yes [id number] 50mg Take 1 [facility] 50 mg 2-05 tablet by ity of tablet 00:00: mouth (two) Medical times Branch daily. topiramate 2020-0 Yes [id number] 50mg Take 1 [facility] 50 mg 2-05 tablet by ity of tablet 00:00: mouth (two) Medical times Branch daily. topiramate 2020-0 Yes [id number] 50mg Take 1 [facility] 50 mg 2-05 tablet by ity of tablet 00:00: mouth (two) Medical times Branch daily. topiramate 2020-0 Yes [id number] 50mg Take 1 [facility] 50 mg 2-05 tablet by ity of tablet 00:00: mouth (two) Medical times Branch daily. topiramate 2020-0 Yes [id number] 50mg Take 1 [facility] 50 mg 2-05 tablet by ity of tablet 00:00: mouth (two) Medical times Branch daily. topiramate 2020-0 Yes [id number] 50mg Take 1 [facility] 50 mg 2-05 tablet by ity of tablet 00:00: mouth (two) Medical times Branch daily. topiramate 2020-0 Yes [id number] 50mg Take 1 [facility] 50 mg 2-05 tablet by ity of tablet 00:00: mouth (two) Medical times Branch daily. topiramate 2020-0 Yes [id number] 50mg Take 1 [facility] 50 mg 2-05 tablet by ity of tablet 00:00: mouth (two) Medical times Branch daily. topiramate 2020-0 Yes [id number] 50mg Take 1 [facility] 50 mg 2-05 tablet by ity of tablet 00:00: mouth 2 (two) Medical times Branch daily. topiramate 2020-0 Yes [id number] 50mg Take 1 [facility] 50 mg 2-05 tablet by ity of tablet 00:00: mouth 2 (two) Medical times Branch daily. topiramate 2020-0 Yes [id number] 50mg Take 1 [facility] 50 mg 2-05 tablet by ity of tablet 00:00: mouth 2 (two) Medical times Branch daily. topiramate 2020-0 Yes [id number] 50mg Take 1 [facility] 50 mg 2-05 tablet by ity of tablet 00:00: mouth 2 (two) Medical times Branch daily. fluticasone 2018-06 Yes 1{spray QD [address] [facility] propionate 1-11 } Nasal [facility] (FLONASE) 11:26: route Medical 50 49 daily. Center mcg/actuati on nasal spray fluticasone 2018-06 Yes 1{spray QD [address] [facility] propionate 1-11 } Nasal [facility] (FLONASE) 11:26: route Medical 50 49 daily. Center mcg/actuati on nasal spray l-methylfol 2018-06 Yes 1{tbl} QD Take [address] [facility] [address] [facility] ate-b2-b6-b 1-04 tablet by [facility] 12 14:14: mouth Medical (CEREFOLIN) 28 daily. Center 6-5-50-1 mg Tab l-methylfol 2018-06 Yes 1{tbl} QD Take [address] ate-b2-b6-b 1-04 tablet by [facility] 12 14:14: mouth Medical (CEREFOLIN) 28 daily. Center 6-5-50-1 mg Tab nitroglycer 2018-[address] [facility] in 0-17 TABLET [facility] (NITROSTAT) 00:00: UNDER Medic al 0.4 MG SL 00 TONGUE Center tablet EVERY 5 MINS, UP TO 3 DOSES NEEDED FOR CHEST PAIN nitroglycer 2018-[address] [facility] in 0-17 TABLET [facility] (NITROSTAT) 00:00: UNDER Medic al 0.4 MG SL 00 TONGUE Center tablet EVERY 5 MINS, UP TO 3 DOSES NEEDED FOR CHEST PAIN omeprazole 2018-06 Yes 40mg Take 40 mg U nivers 40 mg 0-14 by mouth ity of capsule 00:00: daily. [place] [facility] omeprazole 2018-06 Yes 40mg Take 40 mg U nivers 40 mg 0-14 by mouth ity of capsule 00:00: daily. [place] [facility] omeprazole 2018-06 Yes 40mg Take 40 mg U nivers 40 mg 0-14 by mouth ity of capsule 00:00: daily. [place] [facility] omeprazole 2018-06 Yes 40mg Take 40 mg U nivers 40 mg 0-14 by mouth ity of capsule 00:00: daily. [place] [facility] omeprazole 2018-06 Yes 40mg Take 40 mg U nivers 40 mg 0-14 by mouth ity of capsule 00:00: daily. [address] omeprazole 2018-06 Yes 40mg Take 40 mg U nivers 40 mg 0-14 by mouth ity of capsule 00:00: daily. [address] omeprazole 2018-06 Yes 40mg Take 40 mg U nivers 40 mg 0-14 by mouth ity of capsule 00:00: daily. [address] omeprazole 2018-06 Yes 40mg Take 40 mg U nivers 40 mg 0-14 by mouth ity of capsule 00:00: daily. [place] [facility] omeprazole 2018-06 Yes 40mg Take 40 mg U nivers 40 mg 0-14 by mouth ity of capsule 00:00: daily. [address] omeprazole 2018-06 Yes 40mg Take 40 mg U nivers 40 mg 0-14 by mouth ity of capsule 00:00: daily. [address] omeprazole 2018-06 Yes 40mg Take 40 mg U nivers 40 mg 0-14 by mouth ity of capsule 00:00: daily. [address] omeprazole 2018-06 Yes 40mg Take 40 mg U nivers 40 mg 0-14 by mouth ity of capsule 00:00: daily. [address] omeprazole 2018-06 Yes 40mg Take 40 mg U nivers 40 mg 0-14 by mouth ity of capsule 00:00: daily. [address] omeprazole 2018-06 Yes 40mg Take 40 mg U nivers 40 mg 0-14 by mouth ity of capsule 00:00: daily. [address] omeprazole 2018-06 Yes 40mg Take 40 mg U nivers 40 mg 0-14 by mouth ity of capsule 00:00: daily. [place] [facility] omeprazole 2018- Yes 40mg Take 40 mg U nivers 40 mg 0-14 by mouth ity of capsule 00:00: daily. [place] [facility] omeprazole 2018- Yes 40mg Take 40 mg U nivers 40 mg 0-14 by mouth ity of capsule 00:00: daily. [place] [facility] omeprazole 2018- Yes 40mg Take 40 mg U nivers 40 mg 0-14 by mouth ity of capsule 00:00: daily. [place] [facility] omeprazole 2018- Yes 40mg Take 40 mg U nivers 40 mg 0-14 by mouth ity of capsule 00:00: daily. [address] omeprazole 2018- Yes 40mg Take 40 mg U nivers 40 mg 0-14 by mouth ity of capsule 00:00: daily. [address] omeprazole 2018- Yes 40mg Take 40 mg U nivers 40 mg 0-14 by mouth ity of capsule 00:00: daily. [address] omeprazole 2018- Yes 40mg Take 40 mg U nivers 40 mg 0-14 by mouth ity of capsule 00:00: daily. [place] [facility] omeprazole 2018- Yes 40mg Take 40 mg U nivers 40 mg 0-14 by mouth ity of capsule 00:00: daily. [address] omeprazole 2018- Yes 40mg Take 40 mg U nivers 40 mg 0-14 by mouth ity of capsule 00:00: daily. [address] omeprazole 2018- Yes 40mg Take 40 mg U nivers 40 mg 0-14 by mouth ity of capsule 00:00: daily. [address] omeprazole 2018- Yes 40mg Take 40 mg U nivers 40 mg 0-14 by mouth ity of capsule 00:00: daily. [address] omeprazole 2018- Yes 40mg Take 40 mg U nivers 40 mg 0-14 by mouth ity of capsule 00:00: daily. [address] omeprazole 2018- Yes 40mg Take 40 mg U nivers 40 mg 0-14 by mouth ity of capsule 00:00: daily. [address] omeprazole 2018- Yes 40mg Take 40 mg U nivers 40 mg 0-14 by mouth ity of capsule 00:00: daily. [place] [facility] omeprazole 2018- Yes 40mg Take 40 mg U nivers 40 mg 0-14 by mouth ity of capsule 00:00: daily. [place] [facility] omeprazole 2018- Yes 40mg Take 40 mg U nivers 40 mg 0-14 by mouth ity of capsule 00:00: daily. [place] [facility] omeprazole 2018- Yes 40mg Take 40 mg U nivers 40 mg 0-14 by mouth ity of capsule 00:00: daily. [place] [facility] omeprazole 2018- Yes 40mg Take 40 mg U nivers 40 mg 0-14 by mouth ity of capsule 00:00: daily. [place] [facility] omeprazole 2018- Yes 40mg Take 40 mg U nivers 40 mg 0-14 by mouth ity of capsule 00:00: daily. [place] [facility] omeprazole 2018- Yes 40mg Take 40 mg U nivers 40 mg 0-14 by mouth ity of capsule 00:00: daily. [place] [facility] omeprazole 2018- Yes 40mg Take 40 mg U nivers 40 mg 0-14 by mouth ity of capsule 00:00: daily. [place] [facility] omeprazole 2018- Yes 40mg Take 40 mg U nivers 40 mg 0-14 by mouth ity of capsule 00:00: daily. [place] [facility] omeprazole 2018- Yes 40mg Take 40 mg U nivers 40 mg 0-14 by mouth ity of capsule 00:00: daily. [place] [facility] omeprazole 2018- Yes 40mg Take 40 mg U nivers 40 mg 0-14 by mouth ity of capsule 00:00: daily. [place] [facility] omeprazole 2018- Yes 40mg Take 40 mg U nivers 40 mg 0-14 by mouth ity of capsule 00:00: daily. [place] [facility] omeprazole 2018- Yes 40mg Take 40 mg U nivers 40 mg 0-14 by mouth ity of capsule 00:00: daily. [address] omeprazole 2018- Yes 40mg Take 40 mg U nivers 40 mg 0-14 by mouth ity of capsule 00:00: daily. [address] omeprazole 2018- Yes 40mg Take 40 mg U nivers 40 mg 0-14 by mouth ity of capsule 00:00: daily. [address] omeprazole 2018-06 Yes 40mg QD Take [address] (PRILOSEC) 0-14 by mouth [facility] 40 MG 00:00: daily. Medical capsule [address] [place] [address] omeprazole 2018-06 Yes 40mg QD Take [address] (PRILOSEC) 0-14 by mouth [facility] 40 MG 00:00: daily. Medical capsule [address] [place] [address] traZODone Yes TAKE 1/2 Univ ers 50 mg 9-23 TO 1 ity of tablet 00:00: TABLET BY [address] EVERY DAY Branch AT BEDTIME FOR SLEEP traZODone Yes TAKE 1/2 Univ ers 50 mg 9-23 TO 1 ity of tablet 00:00: TABLET BY [address] EVERY DAY Branch AT BEDTIME FOR SLEEP traZODone Yes TAKE 1/2 Univ ers 50 mg 9-23 TO 1 ity of tablet 00:00: TABLET BY [address] EVERY DAY Branch AT BEDTIME FOR SLEEP traZODone Yes TAKE 1/2 Univ ers 50 mg 9-23 TO 1 ity of tablet 00:00: TABLET BY [address] EVERY DAY Branch AT BEDTIME FOR SLEEP traZODone Yes TAKE 1/2 Univ ers 50 mg 9-23 TO 1 ity of tablet 00:00: TABLET BY [address] EVERY DAY Branch AT BEDTIME FOR SLEEP traZODone Yes TAKE 1/2 Univ ers 50 mg 9-23 TO 1 ity of tablet 00:00: TABLET BY [address] EVERY DAY Branch AT BEDTIME FOR SLEEP traZODone Yes TAKE 1/2 Univ ers 50 mg 9-23 TO 1 ity of tablet 00:00: TABLET BY [address] EVERY DAY Branch AT BEDTIME FOR SLEEP traZODone Yes TAKE 1/2 Univ ers 50 mg 9-23 TO 1 ity of tablet 00:00: TABLET BY [address] EVERY DAY Branch AT BEDTIME FOR SLEEP traZODone 2018- Yes TAKE 1/2 Univ ers 50 mg 9-23 TO 1 ity of tablet 00:00: TABLET BY [address] EVERY DAY Branch AT BEDTIME FOR SLEEP traZODone 2018- Yes TAKE 1/2 Univ ers 50 mg 9-23 TO 1 ity of tablet 00:00: TABLET BY [address] EVERY DAY Branch AT BEDTIME FOR SLEEP traZODone 2019-0 Yes TAKE 1/2 Univ ers 50 mg 9-23 TO 1 ity of tablet 00:00: TABLET BY [place] [address] MOUTH [facility] EVERY DAY Branch AT BEDTIME FOR SLEEP traZODone 2019-0 Yes TAKE 1/2 Univ ers 50 mg 9-23 TO 1 ity of tablet 00:00: TABLET BY [place] [address] MOUTH [facility] EVERY DAY Branch AT BEDTIME FOR SLEEP traZODone 2019-0 Yes TAKE 1/2 Univ ers 50 mg 9-23 TO 1 ity of tablet 00:00: TABLET BY [place] [address] MOUTH [facility] EVERY DAY Branch AT BEDTIME FOR SLEEP traZODone 2019-0 Yes TAKE 1/2 Univ ers 50 mg 9-23 TO 1 ity of tablet 00:00: TABLET BY [address] EVERY DAY Branch AT BEDTIME FOR SLEEP traZODone 2019-0 Yes TAKE 1/2 Univ ers 50 mg 9-23 TO 1 ity of tablet 00:00: TABLET BY [address] EVERY DAY Branch AT BEDTIME FOR SLEEP traZODone 2019-0 Yes TAKE 1/2 [facility] ers 50 mg 9-23 TO 1 ity of tablet 00:00: TABLET BY [address] EVERY DAY Branch AT BEDTIME FOR SLEEP traZODone 2019-0 Yes TAKE 1/2 [facility] ers 50 mg 9-23 TO 1 ity of tablet 00:00: TABLET BY [address] EVERY DAY Branch AT BEDTIME FOR SLEEP traZODone 2019-0 Yes TAKE 1/2 Univ ers 50 mg 9-23 TO 1 ity of tablet 00:00: TABLET BY [address] EVERY DAY Branch AT BEDTIME FOR SLEEP traZODone 2019-0 Yes TAKE 1/2 Univ ers 50 mg 9-23 TO 1 ity of tablet 00:00: TABLET BY [place] [address] MOUTH [facility] EVERY DAY Branch AT BEDTIME FOR SLEEP traZODone 2019-0 Yes TAKE 1/2 Univ ers 50 mg 9-23 TO 1 ity of tablet 00:00: TABLET BY [place] [address] MOUTH [facility] EVERY DAY Branch AT BEDTIME FOR SLEEP traZODone 2019-0 Yes TAKE 1/2 Univ ers 50 mg 9-23 TO 1 ity of tablet 00:00: TABLET BY [place] [address] MOUTH [facility] EVERY DAY Branch AT BEDTIME FOR SLEEP traZODone 2019-0 Yes TAKE 1/2 Univ ers 50 mg 9-23 TO 1 ity of tablet 00:00: TABLET BY [address] EVERY DAY Branch AT BEDTIME FOR SLEEP traZODone 2019-0 Yes TAKE 1/2 Univ ers 50 mg 9-23 TO 1 ity of tablet 00:00: TABLET BY [address] EVERY DAY Branch AT BEDTIME FOR SLEEP traZODone 2019-0 Yes TAKE 1/2 Univ ers 50 mg 9-23 TO 1 ity of tablet 00:00: TABLET BY [address] EVERY DAY Branch AT BEDTIME FOR SLEEP traZODone 2019-0 Yes TAKE 1/2 Univ ers 50 mg 9-23 TO 1 ity of tablet 00:00: TABLET BY [address] EVERY DAY Branch AT BEDTIME FOR SLEEP traZODone 2019-0 Yes TAKE 1/2 [facility] ers 50 mg 9-23 TO 1 ity of tablet 00:00: TABLET BY [address] EVERY DAY Branch AT BEDTIME FOR SLEEP traZODone 2019-0 Yes TAKE 1/2 Univ ers 50 mg 9-23 TO 1 ity of tablet 00:00: TABLET BY [address] EVERY DAY Branch AT BEDTIME FOR SLEEP traZODone 2019-0 Yes TAKE 1/2 [facility] ers 50 mg 9-23 TO 1 ity of tablet 00:00: TABLET BY [address] EVERY DAY Branch AT BEDTIME FOR SLEEP traZODone 2019-0 Yes TAKE 1/2 Univ ers 50 mg 9-23 TO 1 ity of tablet 00:00: TABLET BY [address] EVERY DAY Branch AT BEDTIME FOR SLEEP traZODone 2019-0 Yes TAKE 1/2 Univ ers 50 mg 9-23 TO 1 ity of tablet 00:00: TABLET BY [address] EVERY DAY Branch AT BEDTIME FOR SLEEP traZODone 2019-0 Yes TAKE 1/2 [facility] ers 50 mg 9-23 TO 1 ity of tablet 00:00: TABLET BY [address] EVERY DAY Branch AT BEDTIME FOR SLEEP traZODone 2019-0 Yes TAKE 1/2 Univ ers 50 mg 9-23 TO 1 ity of tablet 00:00: TABLET BY [address] EVERY DAY Branch AT BEDTIME FOR SLEEP traZODone 2019-0 Yes TAKE 1/2 [facility] ers 50 mg 9-23 TO 1 ity of tablet 00:00: TABLET BY [address] EVERY DAY Branch AT BEDTIME FOR SLEEP traZODone 2019 Yes TAKE 1/2 Univ ers 50 mg 9-23 TO 1 ity of tablet 00:00: TABLET BY [address] EVERY DAY Branch AT BEDTIME FOR SLEEP traZODone Yes TAKE 1/2 Univ ers 50 mg 9-23 TO 1 ity of tablet 00:00: TABLET BY [address] EVERY DAY Branch AT BEDTIME FOR SLEEP traZODone Yes TAKE 1/2 Univ ers 50 mg 9-23 TO 1 ity of tablet 00:00: TABLET BY [address] EVERY DAY Branch AT BEDTIME FOR SLEEP traZODone Yes TAKE 1/2 Univ ers 50 mg 9-23 TO 1 ity of tablet 00:00: TABLET BY [address] EVERY DAY Branch AT BEDTIME FOR SLEEP traZODone Yes TAKE 1/2 Univ ers 50 mg 9-23 TO 1 ity of tablet 00:00: TABLET BY [address] EVERY DAY Branch AT BEDTIME FOR SLEEP traZODone Yes TAKE 1/2 Univ ers 50 mg 9-23 TO 1 ity of tablet 00:00: TABLET BY [address] EVERY DAY Branch AT BEDTIME FOR SLEEP traZODone Yes TAKE 1/2 Univ ers 50 mg 9-23 TO 1 ity of tablet 00:00: TABLET BY [address] EVERY DAY Branch AT BEDTIME FOR SLEEP traZODone Yes TAKE 1/2 Univ ers 50 mg 9-23 TO 1 ity of tablet 00:00: TABLET BY [address] EVERY DAY Branch AT BEDTIME FOR SLEEP traZODone Yes TAKE 1/2 Univ ers 50 mg 9-23 TO 1 ity of tablet 00:00: TABLET BY [address] EVERY DAY Branch AT BEDTIME FOR SLEEP traZODone Yes TAKE 1/2 Univ ers 50 mg 9-23 TO 1 ity of tablet 00:00: TABLET BY [address] EVERY DAY Branch AT BEDTIME FOR SLEEP traZODone Yes 50mg QD Take [address] [facility] [address] [facility] (DESYREL[facility] 9-23 [facility]: nightly. [facility] tablet 00 [facility] traZODone Yes 50mg QD Take [address] [facility] [address] [facility] (DESYREL) 9-23 by [facility] MG 00:00: nightly. Medical tablet 00 [place] escitalopra 0 Yes 20mg Take 20 mg [facility] oxalate 9-21 by mouth. [facility] 20 mg 00:00: [place] [facility] oxalate 9-21 by mouth. ity o f 20 mg 00:00: [place] tablet [facility] escitalopra 0 Yes 20mg Take 20 mg Univers m oxalate 9-21 by mouth. ity o f 20 mg 00:00: [place] tablet [facility] escitalopra 0 Yes 20mg Take 20 mg [facility] m oxalate 9-21 by mouth. ity o f 20 mg 00:00: [place] tablet [facility] escitalopra 2018-0 Yes 20mg Take 20 mg [facility] oxalate 9-21 by mouth. ity o f 20 mg 00:00: [place] [facility] oxalate 9-21 by mouth. ity o f 20 mg 00:00: [place] [facility] oxalate 9-21 by mouth. ity o f 20 mg 00:00: [place] [facility] 20[facility] Take 20 mg [facility] oxalate 9-21 by mouth. ity o f 20 mg 00:00: [place] tablet [facility] escitalopra 0 Yes 20mg Take 20 mg [facility] m oxalate 9-21 by mouth. ity o f 20 mg 00:00: [place] tablet [facility] escitalopra 2018-0 Yes 20mg Take 20 mg [facility] m oxalate 9-21 by mouth. ity o f 20 mg 00:00: [place] tablet [facility] escitalopra 2018-0 Yes 20mg Take 20 mg Univers m oxalate 9-21 by mouth. ity o f 20 mg 00:00: [place] tablet [facility] escitalopra 2018-0 Yes 20mg Take 20 mg [facility] m oxalate 9-21 by mouth. ity o f 20 mg 00:00: [place] tablet 00 [facility] escitalopra 2018-0 Yes 20mg Take 20 mg [facility] m oxalate 9-21 by mouth. ity o f 20 mg 00:00: [place] tablet [facility] escitalopra 2019-0 Yes 20mg Take 20 mg [facility] m oxalate 9-21 by mouth. ity o f 20 mg 00:00: [place] tablet 00 [facility] escitalopra 0 Yes 20mg Take 20 mg Univers m oxalate 9-21 by mouth. ity o f 20 mg 00:00: [place] tablet 00 [facility] escitalopra 0 Yes 20mg Take 20 mg Univers m oxalate 9-21 by mouth. ity o f 20 mg 00:00: [place] tablet [facility] escitalopra 0 Yes 20mg Take 20 mg Univers m oxalate 9-21 by mouth. ity o f 20 mg 00:00: [place] tablet 00 [facility] escitalopra 0 Yes 20mg Take 20 mg Univers m oxalate 9-21 by mouth. ity o f 20 mg 00:00: [place] tablet [facility] escitalopra 0 Yes 20mg Take 20 mg [facility] m oxalate 9-21 by mouth. ity o f 20 mg 00:00: [place] tablet [facility] escitalopra 0 Yes 20mg Take 20 mg Univers m oxalate 9-21 by mouth. ity o f 20 mg 00:00: [place] tablet [facility] escitalopra 0 Yes 20mg Take 20 mg Univers m oxalate 9-21 by mouth. ity o f 20 mg 00:00: [place] tablet [facility] escitalopra 0 Yes 20mg Take 20 mg Univers m oxalate 9-21 by mouth. ity o f 20 mg 00:00: [place] tablet [facility] escitalopra 0 Yes 20mg Take 20 mg Univers m oxalate 9-21 by mouth. ity o f 20 mg 00:00: [place] tablet [facility] escitalopra 0 Yes 20mg Take 20 mg Univers m oxalate 9-21 by mouth. ity o f 20 mg 00:00: [place] tablet 00 [facility] escitalopra 2018-0 Yes 20mg Take 20 mg Univers m oxalate 9-21 by mouth. ity o f 20 mg 00:00: [place] tablet 00 [facility] escitalopra 0 Yes 20mg Take 20 mg Univers m oxalate 9-21 by mouth. ity o f 20 mg 00:00: [place] tablet 00 [facility] escitalopra 2018-0 Yes 20mg Take 20 mg Univers m oxalate 9-21 by mouth. ity o f 20 mg 00:00: [place] tablet 00 [facility] escitalopra 2018-0 Yes 20mg Take 20 mg Univers m oxalate 9-21 by mouth. ity o f 20 mg 00:00: [place] tablet 00 [facility] escitalopra 0 Yes 20mg Take 20 mg Univers m oxalate 9-21 by mouth. ity o f 20 mg 00:00: [place] tablet [facility] escitalopra 2018-0 Yes 20mg Take 20 mg Univers m oxalate 9-21 by mouth. ity o f 20 mg 00:00: [place] tablet [facility] escitalopra 0 Yes 20mg Take 20 mg Univers m oxalate 9-21 by mouth. ity o f 20 mg 00:00: [place] tablet [facility] escitalopra 0 Yes 20mg Take 20 mg Univers m oxalate 9-21 by mouth. ity o f 20 mg 00:00: [place] tablet [facility] escitalopra 0 Yes 20mg Take 20 mg Univers m oxalate 9-21 by mouth. ity o f 20 mg 00:00: [place] tablet [facility] escitalopra 0 Yes 20mg Take 20 mg Univers m oxalate 9-21 by mouth. ity o f 20 mg 00:00: [place] tablet [facility] escitalopra 2018-0 Yes 20mg Take 20 mg Univers m oxalate 9-21 by mouth. ity o f 20 mg 00:00: [place] tablet [facility] escitalopra 2018-0 Yes 20mg Take 20 mg Univers m oxalate 9-21 by mouth. ity o f 20 mg 00:00: [place] tablet [facility] escitalopra 2018-0 Yes 20mg Take 20 mg Univers m oxalate 9-21 by mouth. ity o f 20 mg 00:00: [place] tablet [facility] escitalopra 2018-0 Yes 20mg Take 20 mg Univers m oxalate 9-21 by mouth. ity o f 20 mg 00:00: [place] tablet 00 [facility] escitalopra 2018-0 Yes 20mg Take 20 mg Univers m oxalate 9-21 by mouth. ity o f 20 mg 00:00: [place] tablet 00 [facility] escitalopra 2018-0 Yes 20mg Take 20 mg Univers m oxalate 9-21 by mouth. ity o f 20 mg 00:00: [place] tablet [facility] escitalopra 2019-0 Yes 20mg Take 20 mg Univers m oxalate 9-21 by mouth. ity o f 20 mg 00:00: [place] tablet 00 [facility] escitalopra 2018- Yes 20mg Take 20 mg Univers m oxalate 9-21 by mouth. ity o f 20 mg 00:00: [place] tablet 00 [facility] escitalopra 2018-0 Yes 20mg Take 20 mg Univers m oxalate 9-21 by mouth. ity o f 20 mg 00:00: [place] tablet 00 [facility] buPROPion Yes 300mg QD Take [address] [facility] [address] (WELLBUTRIN 9-21 mg by [facility] XL) 300 MG 00:00: mouth Medica l 24 hr 00 every Center tablet morning. escitalopra 2018- Yes 20mg QD Take [address] [facility] m oxalate 9-21 by mouth [facility] (LEXAPRO) 00:00: daily. Medica l 20 MG 00 Center tablet buPROPion Yes 300mg QD Take [facility] [...] tablet 00 EVERY DAY Medical IN THE [place] MORNING buPROPion Yes TAKE 1 Univer [facility] XL 300 mg 4-25 TABLET BY ity o f 24 hr 00:00: MOUTH [place] tablet 00 EVERY DAY Medical IN THE [place] MORNING buPROPion Yes TAKE 1 Univer [facility] XL 300 mg 4-25 TABLET BY ity o f 24 hr 00:00: MOUTH [place] tablet 00 EVERY DAY Medical IN THE [place] MORNING buPROPion Yes TAKE 1 Univer [facility] XL 300 mg 4-25 TABLET BY ity o f 24 hr 00:00: MOUTH [place] tablet 00 EVERY DAY Medical IN THE [place] MORNING buPROPion Yes TAKE 1 Univer [facility] XL 300 mg 4-25 TABLET BY ity o f 24 hr 00:00: MOUTH [place] tablet 00 EVERY DAY Medical IN THE [place] MORNING buPROPion Yes TAKE 1 Univer [facility] XL 300 mg 4-25 TABLET BY ity o f 24 hr 00:00: MOUTH [place] tablet 00 EVERY DAY Medical IN THE [facility] buPROPion Yes TAKE 1 Univer s XL 300 mg 4-25 TABLET BY ity o f 24 hr 00:00: MOUTH [place] tablet 00 EVERY DAY Medical IN THE [facility] buPROPion Yes TAKE 1 Univer s XL 300 mg 4-25 TABLET BY ity o f 24 hr 00:00: MOUTH [place] tablet 00 EVERY DAY Medical IN THE [facility] buPROPion Yes TAKE 1 Univer s XL 300 mg 4-25 TABLET BY ity o f 24 hr 00:00: MOUTH [place] tablet 00 EVERY DAY Medical IN THE [facility] buPROPion Yes TAKE 1 Univer s XL 300 mg 4-25 TABLET BY ity o f 24 hr 00:00: MOUTH [place] tablet 00 EVERY DAY Medical IN THE [facility] buPROPion Yes TAKE 1 Univer s XL 300 mg 4-25 TABLET BY ity o f 24 hr 00:00: MOUTH [place] tablet 00 EVERY DAY Medical IN THE [facility] buPROPion Yes TAKE 1 Univer s XL 300 mg 4-25 TABLET BY ity o f 24 hr 00:00: MOUTH [place] tablet 00 EVERY DAY Medical IN THE [facility] buPROPion Yes TAKE 1 Univer s XL 300 mg 4-25 TABLET BY ity o f 24 hr 00:00: MOUTH [place] tablet 00 EVERY DAY Medical IN THE [facility] buPROPion Yes TAKE 1 Univer s XL 300 mg 4-25 TABLET BY ity o f 24 hr 00:00: MOUTH [place] tablet 00 EVERY DAY Medical IN THE [facility] buPROPion Yes TAKE 1 Univer s XL 300 mg 4-25 TABLET BY ity o f 24 hr 00:00: MOUTH [place] tablet 00 EVERY DAY Medical IN THE [facility] buPROPion Yes TAKE 1 Univer s XL 300 mg 4-25 TABLET BY ity o f 24 hr 00:00: MOUTH [place] tablet 00 EVERY DAY Medical IN THE [facility] buPROPion Yes TAKE 1 Univer s XL 300 mg 4-25 TABLET BY ity o f 24 hr 00:00: MOUTH [place] tablet 00 EVERY DAY Medical IN THE [facility] buPROPion Yes TAKE 1 Univer s XL 300 mg 4-25 TABLET BY ity o f 24 hr 00:00: MOUTH [place] tablet 00 EVERY DAY Medical IN [facility] buPROPion Yes TAKE 1 Univer s XL 300 mg 4-25 TABLET BY ity o f 24 hr 00:00: MOUTH [place] tablet 00 EVERY DAY Medical IN THE [facility] buPROPion Yes TAKE 1 Univer s XL 300 mg 4-25 TABLET BY ity o f 24 hr 00:00: MOUTH [place] tablet 00 EVERY DAY Medical IN THE [facility] buPROPion Yes TAKE 1 Univer s XL 300 mg 4-25 TABLET BY ity o f 24 hr 00:00: MOUTH [place] tablet 00 EVERY DAY Medical IN THE [facility] buPROPion Yes TAKE 1 Univer s XL 300 mg 4-25 TABLET BY ity o f 24 hr 00:00: MOUTH [place] tablet 00 EVERY DAY Medical IN THE [facility] buPROPion Yes TAKE 1 Univer s XL 300 mg 4-25 TABLET BY ity o f 24 hr 00:00: MOUTH [place] tablet 00 EVERY DAY Medical IN THE [facility] buPROPion Yes TAKE 1 Univer s XL 300 mg 4-25 TABLET BY ity o f 24 hr 00:00: MOUTH [place] tablet 00 EVERY DAY Medical IN THE [facility] buPROPion Yes TAKE 1 Univer s XL 300 mg 4-25 TABLET BY ity o f 24 hr 00:00: MOUTH [place] tablet 00 EVERY DAY Medical IN THE [facility] buPROPion Yes TAKE 1 Univer s XL 300 mg 4-25 TABLET BY ity o f 24 hr 00:00: MOUTH [place] tablet 00 EVERY DAY Medical IN THE [facility] buPROPion Yes TAKE 1 Univer s XL 300 mg 4-25 TABLET BY ity o f 24 hr 00:00: MOUTH [place] tablet 00 EVERY DAY Medical IN THE [facility] buPROPion Yes TAKE 1 Univer s XL 300 mg 4-25 TABLET BY ity o f 24 hr 00:00: MOUTH [place] tablet 00 EVERY DAY Medical IN THE [facility] buPROPion Yes TAKE 1 Univer s XL 300 mg 4-25 TABLET BY ity o f 24 hr 00:00: MOUTH [place] tablet 00 EVERY DAY Medical IN THE [facility] buPROPion Yes TAKE 1 Univer s XL 300 mg 4-25 TABLET BY ity o f 24 hr 00:00: MOUTH [place] tablet 00 EVERY DAY Medical IN THE [facility] buPROPion Yes TAKE 1 Univer s XL 300 mg 4-25 TABLET BY ity o f 24 hr 00:00: MOUTH [place] tablet 00 EVERY DAY Medical IN THE [facility] buPROPion Yes TAKE 1 Univer s XL 300 mg 4-25 TABLET BY ity o f 24 hr 00:00: MOUTH [place] tablet 00 EVERY DAY Medical IN THE [facility] buPROPion Yes TAKE 1 Univer s XL 300 mg 4-25 TABLET BY ity o f 24 hr 00:00: MOUTH [place] tablet 00 EVERY DAY Medical IN THE [facility] buPROPion Yes TAKE 1 Univer s XL 300 mg 4-25 TABLET BY ity o f 24 hr 00:00: MOUTH [place] tablet 00 EVERY DAY Medical IN THE [facility] buPROPion Yes TAKE 1 Univer s XL 300 mg 4-25 TABLET BY ity o f 24 hr 00:00: MOUTH [place] tablet 00 EVERY DAY Medical IN THE [facility] buPROPion Yes TAKE 1 Un[facility] XL 300 mg 4-25 TABLET BY ity o f 24 hr 00:00: MOUTH [place] tablet 00 EVERY DAY Medical IN THE [facility] buPROPion Yes TAKE 1 [facility] XL 300 mg 4-25 TABLET BY ity o f 24 hr 00:00: MOUTH [place] tablet 00 EVERY DAY Medical IN THE [facility] buPROPion Yes TAKE 1 [facility] XL 300 mg 4-25 TABLET BY ity o f 24 hr 00:00: MOUTH [place] tablet 00 EVERY DAY Medical IN THE [facility] buPROPion Yes TAKE 1 [facility] XL 300 mg 4-25 TABLET BY ity o f 24 hr 00:00: MOUTH [place] tablet 00 EVERY DAY Medical IN THE [facility] buPROPion Yes TAKE 1 Un[facility] XL 300 mg 4-25 TABLET BY ity o f 24 hr 00:00: MOUTH [place] tablet 00 EVERY DAY Medical IN THE [facility] buPROPion Yes TAKE 1 Un[facility] XL 300 mg 4-25 TABLET BY ity o f 24 hr 00:00: MOUTH [place] tablet 00 EVERY DAY Medical IN THE [facility] buPROPion Yes TAKE 1 [facility] XL 300 mg 4-25 TABLET BY ity o f 24 hr 00:00: MOUTH [place] tablet 00 EVERY DAY Medical IN THE [place] MORNING buPROPion 2018-0 Yes TAKE 1 [facility] XL 300 mg 4-25 TABLET BY ity o f 24 hr 00:00: MOUTH [place] tablet 00 EVERY DAY Medical IN [facility] MORNING benazepril 2017-0 Yes 10mg Take 10 mg U nivers 10 mg 5-03 by mouth ity of tablet 00:00: daily. [place] [facility] benazepril 2017-0 Yes 10mg Take 10 mg U nivers 10 mg 5-03 by mouth ity of tablet 00:00: daily. [place] [facility] benazepril 2017-0 Yes 10mg Take 10 mg U nivers 10 mg 5-03 by mouth ity of tablet 00:00: daily. [place] [facility] benazepril 2017-0 Yes 10mg Take 10 mg U nivers 10 mg 5-03 by mouth ity of tablet 00:00: daily. [place] [facility] benazepril 2017-0 Yes 10mg Take 10 mg U nivers 10 mg 5-03 by mouth ity of tablet 00:00: daily. [place] [facility] benazepril 2017-0 Yes 10mg Take 10 mg U nivers 10 mg 5-03 by mouth ity of tablet 00:00: daily. [place] [facility] benazepril 2017-0 Yes 10mg Take 10 mg U nivers 10 mg 5-03 by mouth ity of tablet 00:00: daily. [place] [facility] benazepril 2017-0 Yes 10mg Take 10 mg U nivers 10 mg 5-03 by mouth ity of tablet 00:00: daily. [place] [facility] benazepril 2017-0 Yes 10mg Take 10 mg U nivers 10 mg 5-03 by mouth ity of tablet 00:00: daily. [place] [facility] benazepril 2017-0 Yes 10mg Take 10 mg U nivers 10 mg 5-03 by mouth ity of tablet 00:00: daily. [place] [facility] benazepril 2017-0 Yes 10mg Take 10 mg U nivers 10 mg 5-03 by mouth ity of tablet 00:00: daily. [place] [facility] benazepril 2017-0 Yes 10mg Take 10 mg U nivers 10 mg 5-03 by mouth ity of tablet 00:00: daily. [place] [facility] benazepril 2018-0 Yes 10mg Take 10 mg U nivers 10 mg 5-03 by mouth ity of tablet 00:00: daily. [facility] benazepril 2018-0 Yes 10mg Take 10 mg U nivers 10 mg 5-03 by mouth ity of tablet 00:00: daily. [facility] benazepril 2018-0 Yes 10mg Take 10 mg U nivers 10 mg 5-03 by mouth ity of tablet 00:00: daily. [facility] benazepril 2018-0 Yes 10mg Take 10 mg U nivers 10 mg 5-03 by mouth ity of tablet 00:00: daily. [facility] benazepril 2018-0 Yes 10mg Take 10 mg U nivers 10 mg 5-03 by mouth ity of tablet 00:00: daily. [facility] benazepril 2018-0 Yes 10mg Take 10 mg U nivers 10 mg 5-03 by mouth ity of tablet 00:00: daily. [place] [facility] benazepril 2018-0 Yes 10mg Take 10 mg U nivers 10 mg 5-03 by mouth ity of tablet 00:00: daily. [facility] benazepril 2018-0 Yes 10mg Take 10 mg U nivers 10 mg 5-03 by mouth ity of tablet 00:00: daily. [place] [facility] benazepril 2018-0 Yes 10mg Take 10 mg U nivers 10 mg 5-03 by mouth ity of tablet 00:00: daily. [place] [facility] benazepril 2018-0 Yes 10mg Take 10 mg U nivers 10 mg 5-03 by mouth ity of tablet 00:00: daily. [facility] benazepril 2018-0 Yes 10mg Take 10 mg U nivers 10 mg 5-03 by mouth ity of tablet 00:00: daily. [facility] benazepril 2018-0 Yes 10mg Take 10 mg U nivers 10 mg 5-03 by mouth ity of tablet 00:00: daily. [facility] benazepril 2018-0 Yes 10mg Take 10 mg U nivers 10 mg 5-03 by mouth ity of tablet 00:00: daily. [place] [facility] benazepril 2018-0 Yes 10mg Take 10 mg U nivers 10 mg 5-03 by mouth ity of tablet 00:00: daily. [facility] benazepril 2018-0 Yes 10mg Take 10 mg U nivers 10 mg 5-03 by mouth ity of tablet 00:00: daily. [facility] benazepril 2018-0 Yes 10mg Take 10 mg U nivers 10 mg 5-03 by mouth ity of tablet 00:00: daily. [facility] benazepril 2018-0 Yes 10mg Take 10 mg U nivers 10 mg 5-03 by mouth ity of tablet 00:00: daily. [facility] benazepril 2018-0 Yes 10mg Take 10 mg U nivers 10 mg 5-03 by mouth ity of tablet 00:00: daily. [place] [facility] benazepril 2018-0 Yes 10mg Take 10 mg U nivers 10 mg 5-03 by mouth ity of tablet 00:00: daily. [place] [facility] benazepril 2018-0 Yes 10mg Take 10 mg U nivers 10 mg 5-03 by mouth ity of tablet 00:00: daily. [place] [facility] benazepril 2018-0 Yes 10mg Take 10 mg U nivers 10 mg 5-03 by mouth ity of tablet 00:00: daily. [place] [facility] benazepril 2018-0 Yes 10mg Take 10 mg U nivers 10 mg 5-03 by mouth ity of tablet 00:00: daily. [facility] benazepril 2018-0 Yes 10mg Take 10 mg U nivers 10 mg 5-03 by mouth ity of tablet 00:00: daily. [place] [facility] benazepril 2018-0 Yes 10mg Take 10 mg U nivers 10 mg 5-03 by mouth ity of tablet 00:00: daily. [facility] benazepril 2018-0 Yes 10mg Take 10 mg U nivers 10 mg 5-03 by mouth ity of tablet 00:00: daily. [facility] benazepril 2018-0 Yes 10mg Take 10 mg U nivers 10 mg 5-03 by mouth ity of tablet 00:00: daily. [place] [facility] benazepril 2018-0 Yes 10mg Take 10 mg U nivers 10 mg 5-03 by mouth ity of tablet 00:00: daily. [facility] benazepril 2018-0 Yes 10mg Take 10 mg U nivers 10 mg 5-03 by mouth ity of tablet 00:00: daily. [place] [facility] benazepril 2018-0 Yes 10mg Take 10 mg U nivers 10 mg 5-03 by mouth ity of tablet 00:00: daily. [place] [facility] benazepril 2018-0 Yes 10mg Take 10 mg U nivers 10 mg 5-03 by mouth ity of tablet 00:00: daily. [place] [facility] benazepril 2018-0 Yes 10mg Take 10 mg U nivers 10 mg 5-03 by mouth ity of tablet 00:00: daily. [address] Tamsulosin Tamsulosin No 1{capsu QD Tamsulosin [...] 300 MG (XL) 300 MG Tamsulosin Tamsulosin No 2{capsu QD Tamsulosin HCl 0.4 MG HCl 0.4 MG 11-06 les} HCl 0.4 MG 00:00 :00 Tamsulosin Tamsulosin 2022- No 2{capsu QD Tamsulosin HCl 0.4 MG HCl 0.4 MG 11-06 les} HCl 0.4 MG 00:00 :00 Tamsulosin Tamsulosin No 1{capsu QD Tamsulosin HCl 0.4 MG HCl 0.4 MG 04-30 le} HCl 0.4 MG 00:00 :00 Immunizations Ordered Filled Date Status Comments Source Immunization Name Immunization Name Bupivicaine [place] Bupivicaine [place] 2020-08-20 Completed [facility] - 15:03:00 [facility] Bupivicaine [place]ons Bupivicaine [place] 2020-08-20 Completed [facility] - 15:03:00 [facility] Bupivicaine [place]ons Bupivicaine [place] 2020-08-20 Completed [facility] - 15:03:00 [facility] Bupivicaine [place]ons Bupivicaine [place] 2020-08-20 Completed [facility] - 15:03:00 [facility] Bupivicaine [place]ons Bupivicaine [place] 2020-08-20 Completed [facility] - 15:03:00 [facility] Bupivicaine [place]ons Bupivicaine [place]ons 2020-08-20 Completed [facility] - 15:03:00 [facility] Bupivicaine [place]ons Bupivicaine [place]ons 2020-08-20 Completed [facility] - 15:03:00 [facility] Bupivicaine [place]ons Bupivicaine [place]ons 2020-08-20 Completed [facility] - 15:03:00 [facility] Bupivicaine [place]ons Bupivicaine [place]ons 2020-08-20 Completed [facility] - 15:03:00 [facility] Bupivicaine [place]ons Bupivicaine [place] 2020-08-20 Completed [facility] - 15:03:00 [facility] Bupivicaine [place]ons Bupivicaine [place]ons 2020-08-20 Completed [facility] - 15:03:00 [facility] Elsy Chin 2020-08-20 Completed [facility] - (Triamcinolone) (Triamcinolone) 15:02:00 [facility] Elsy Chin 2020-08-20 Completed [facility] - (Triamcinolone) (Triamcinolone) 15:02:00 [facility] Elsy Chin 2020-08-20 Completed [facility] - (Triamcinolone) (Triamcinolone) 15:02:00 [facility] Elsy Chin 2020-08-20 Completed [facility] - (Triamcinolone) (Triamcinolone) 15:02:00 [facility] Elsy Chin 2020-08-20 Completed [facility] - (Triamcinolone) (Triamcinolone) 15:02:00 [facility] Elsy Chin 2020-08-20 Completed [facility] - (Triamcinolone) (Triamcinolone) 15:02:00 [facility] Elsy Chin 2020-08-20 Completed [facility] - (Triamcinolone) (Triamcinolone) 15:02:00 [facility] Elsy Chin 2020-08-20 Completed [facility] - (Triamcinolone) (Triamcinolone) 15:02:00 [facility] Elsy Chin 2020-08-20 Completed [facility] - (Triamcinolone) (Triamcinolone) 15:02:00 [facility] Elsy Chin 2020-08-20 Completed [facility] - (Triamcinolone) (Triamcinolone) 15:02:00 [facility] Elsy Chin 2020-08-20 Completed [facility] - (Triamcinolone) (Triamcinolone) 15:02:00 [facility] TDAP 2018-03-30 Completed [facility] 00:00:00 [facility] Zoster Vaccine 2018-03-30 Completed University of Recombinant 00:00:00 [facility] TDAP 2018-03-30 Completed University [facility] 00:00:00 [facility] Zoster Vaccine 2018-03-30 Completed University of Recombinant 00:00:00 [facility] TDAP 2018-03-30 Completed University of 00:00:00 [facility] Zoster Vaccine 2018-03-30 Completed University [facility] Recombinant 00:00:00 [place] [facility] TDAP 2018-03-30 Completed [facility] 00:00:00 [place] [facility] Zoster Vaccine 2018-03-30 Completed [facility] Recombinant 00:00:00 [place] [facility] TDAP 2018-03-30 Completed [facility] 00:00:00 [facility] Zoster Vaccine 2018-03-30 Completed University of Recombinant 00:00:00 [place] [facility] TDAP 2018-03-30 Completed [facility] 00:00:00 [place] [facility] Zoster Vaccine 2018-03-30 Completed [facility] Recombinant 00:00:00 [facility] TDAP 2018-03-30 Completed University of 00:00:00 [facility] Zoster Vaccine 2018-03-30 Completed University of Recombinant 00:00:00 [facility] TDAP 2018-03-30 Completed University of 00:00:00 [facility] Zoster Vaccine 2018-03-30 Completed University of Recombinant 00:00:00 [facility] TDAP 2018-03-30 Completed University of 00:00:00 [facility] Zoster Vaccine 2018-03-30 Completed University of Recombinant 00:00:00 [facility] TDAP 2018-03-30 Completed University of 00:00:00 [facility] Zoster Vaccine 2018-03-30 Completed University of Recombinant 00:00:00 [facility] TDAP 2018-03-30 Completed University of 00:00:00 [facility] Zoster Vaccine 2018-03-30 Completed University of Recombinant 00:00:00 [facility] TDAP 2018-03-30 Completed University of 00:00:00 [facility] Zoster Vaccine 2018-03-30 Completed University of Recombinant 00:00:00 [facility] TDAP 2018-03-30 Completed University of 00:00:00 [facility] Zoster Vaccine 2018-03-30 Completed [facility] Recombinant 00:00:00 [facility] [facility] TDAP 2018-03-30 Completed [facility] 00:00:00 [facility] Zoster Vaccine 2018-03-30 Completed [facility] of Recombinant 00:00:00 [facility] TDAP 2018-03-30 Completed [facility] 00:00:00 [facility] Zoster Vaccine 2018-03-30 Completed [facility] Recombinant 00:00:00 [facility] TDAP 2018-03-30 Completed [facility] 00:00:00 [facility] Zoster Vaccine 2018-03-30 Completed [facility] Recombinant 00:00:00 [facility] TDAP 2018-03-30 Completed [facility] 00:00:00 [facility] Zoster Vaccine 2018-03-30 Completed [facility] Recombinant 00:00:00 [facility] TDAP 2018-03-30 Completed [facility] 00:00:00 [facility] Zoster Vaccine 2018-03-30 Completed [facility] Recombinant 00:00:00 [facility] TDAP 2018-03-30 Completed [facility] 00:00:00 [facility] Zoster Vaccine 2018-03-30 Completed [facility] Recombinant 00:00:00 [facility] TDAP 2018-03-30 Completed [facility] 00:00:00 [facility] Zoster Vaccine 2018-03-30 Completed [facility] Recombinant 00:00:00 [facility] TDAP 2018-03-30 Completed [facility] 00:00:00 [facility] Zoster Vaccine 2018-03-30 Completed [facility] Recombinant 00:00:00 [facility] TDAP 2018-03-30 Completed [facility] 00:00:00 [facility] Zoster Vaccine 2018-03-30 Completed [facility] Recombinant 00:00:00 [facility] TDAP 2018-03-30 Completed [facility] 00:00:00 [facility] Zoster Vaccine 2018-03-30 Completed [facility] Recombinant 00:00:00 [facility] TDAP 2018-03-30 Completed [facility] 00:00:00 [facility] Zoster Vaccine 2018-03-30 Completed [facility] Recombinant 00:00:00 [facility] TDAP 2018-03-30 Completed [facility] 00:00:00 [facility] Zoster Vaccine 2018-03-30 Completed [facility] Recombinant 00:00:00 [facility] TDAP 2018-03-30 Completed [facility] 00:00:00 [facility] Zoster Vaccine 2018-03-30 Completed [facility] Recombinant 00:00:00 [facility] TDAP 2018-03-30 Completed [facility] 00:00:00 [facility] Zoster Vaccine 2018-03-30 Completed [facility] Recombinant 00:00:00 [facility] TDAP 2018-03-30 Completed [facility] 00:00:00 [facility] Zoster Vaccine 2018-03-30 Completed [facility] Recombinant 00:00:00 [facility] TDAP 2018-03-30 Completed [facility] 00:00:00 [facility] Zoster Vaccine 2018-03-30 Completed [facility] Recombinant 00:00:00 [facility] TDAP 2018-03-30 Completed [facility] 00:00:00 [facility] Zoster Vaccine 2018-03-30 Completed [facility] Recombinant 00:00:00 [facility] TDAP 2018-03-30 Completed [facility] 00:00:00 [facility] Zoster Vaccine 2018-03-30 Completed [facility] Recombinant 00:00:00 [facility] TDAP 2018-03-30 Completed [facility] 00:00:00 [facility] Zoster Vaccine 2018-03-30 Completed [facility] Recombinant 00:00:00 [facility] TDAP 2018-03-30 Completed [facility] 00:00:00 [facility] Zoster Vaccine 2018-03-30 Completed [facility] Recombinant 00:00:00 [facility] Zoster Vaccine 2017-11-24 Completed [facility] Recombinant 00:00:00 [facility] Zoster Vaccine 2017-11-24 Completed [facility] Recombinant 00:00:00 [facility] Zoster Vaccine 2017-11-24 Completed [facility] Recombinant 00:00:00 [facility] Zoster Vaccine 2017-11-24 Completed [facility] Recombinant 00:00:00 [facility] Zoster Vaccine 2017-11-24 Completed [facility] Recombinant 00:00:00 [facility] Zoster Vaccine 2017-11-24 Completed [facility] Recombinant 00:00:00 [facility] Zoster Vaccine 2017-11-24 Completed [facility] Recombinant 00:00:00 [facility] Zoster Vaccine 2017-11-24 Completed [facility] Recombinant 00:00:00 [facility] Zoster Vaccine 2017-11-24 Completed [facility] Recombinant 00:00:00 [facility] Zoster Vaccine 2017-11-24 Completed [facility] Recombinant 00:00:00 [facility] Zoster Vaccine 2017-11-24 Completed [facility] Recombinant 00:00:00 [facility] Zoster Vaccine 2017-11-24 Completed [facility] Recombinant 00:00:00 [facility] Zoster Vaccine 2017-11-24 Completed [facility] Recombinant 00:00:00 [facility] Zoster Vaccine 2017-11-24 Completed [facility] Recombinant 00:00:00 [facility] Zoster Vaccine 2017-11-24 Completed [facility] Recombinant 00:00:00 [facility] Zoster Vaccine 2017-11-24 Completed [facility] Recombinant 00:00:00 [facility] Zoster Vaccine 2017-11-24 Completed [facility] Recombinant 00:00:00 [facility] Zoster Vaccine 2017-11-24 Completed [facility] Recombinant 00:00:00 [facility] Zoster Vaccine 2017-11-24 Completed [facility] Recombinant 00:00:00 [facility] Zoster Vaccine 2017-11-24 Completed [facility] of Recombinant 00:00:00 [facility] Zoster Vaccine 2017-11-24 Completed [facility] Recombinant 00:00:00 [facility] Zoster Vaccine 2017-11-24 Completed [facility] Recombinant 00:00:00 [facility] Zoster Vaccine 2017-11-24 Completed [facility] Recombinant 00:00:00 [facility] Zoster Vaccine 2017-11-24 Completed [facility] Recombinant 00:00:00 [facility] Zoster Vaccine 2017-11-24 Completed [facility] Recombinant 00:00:00 [facility] Zoster Vaccine 2017-11-24 Completed [facility] Recombinant 00:00:00 [facility] Zoster Vaccine 2017-11-24 Completed [facility] Recombinant 00:00:00 [facility] Zoster Vaccine 2017-11-24 Completed [facility] Recombinant 00:00:00 [facility] Zoster Vaccine 2017-11-24 Completed [facility] Recombinant 00:00:00 [facility] Zoster Vaccine 2017-11-24 Completed [facility] Recombinant 00:00:00 [facility] Zoster Vaccine 2017-11-24 Completed [facility] Recombinant 00:00:00 [facility] Zoster Vaccine 2017-11-24 Completed [facility] Recombinant 00:00:00 [facility] Zoster Vaccine 2017-11-24 Completed [facility] Recombinant 00:00:00 [facility] TDAP Unknown Completed [facility] Zoster Vaccine Unknown Completed [facility] Recombinant [facility] Zoster Vaccine Unknown Completed [facility] Recombinant [facility] TDAP Unknown Completed [facility] Zoster Vaccine Unknown Completed [facility] Recombinant [facility] Zoster Vaccine Unknown Completed [facility] Recombinant [facility] TDAP Unknown Completed [facility] Zoster Vaccine Unknown Completed [facility] Recombinant [facility] Zoster Vaccine Unknown Completed [facility] Recombinant [facility] TDAP Unknown Completed [facility] Zoster Vaccine Unknown Completed [facility] Recombinant [facility] Zoster Vaccine Unknown Completed [facility] Recombinant [facility] TDAP Unknown Completed [facility] Zoster Vaccine Unknown Completed [facility] Recombinant [facility] Zoster Vaccine Unknown Completed [facility] Recombinant [facility] TDAP Unknown Completed [facility] Zoster Vaccine Unknown Completed [facility] Recombinant [facility] Zoster Vaccine Unknown Completed [facility] Recombinant [facility] TDAP Unknown Completed [facility] Zoster Vaccine Unknown Completed University Recombinant [facility] Zoster Vaccine Unknown Completed University Recombinant [facility] TDAP Unknown Completed [facility] Zoster Vaccine Unknown Completed [facility] Recombinant [facility] Zoster Vaccine Unknown Completed University Recombinant [facility] TDAP Unknown Completed [facility] Zoster Vaccine Unknown Completed [facility] Zoster Vaccine Unknown Completed [facility] TDAP Unknown Completed [facility] Zoster Vaccine Unknown Completed [facility] Zoster Vaccine Unknown Completed [facility] Vital Signs Vital Name Observation Time Observation Value Comments Source HEIGHT 2021-05-12 11:45:00 172.7 cm WEIGHT 2021-05-12 11:45:00 92.534 kg Body height 2023-03-13 20:14:00 172.7 cm [facility] Body weight 2023-03-13 20:14:00 98.93 kg [facility] BMI 2023-03-13 20:14:00 33.16 kg/m2 [facility] Systolic blood 2023-02-07 18:33:00 135 mm[Hg] [facility] Diastolic blood 2023-02-07 18:33:00 69 mm[Hg] [facility] Heart rate 2023-02-07 18:33:00 106 /min [facility] Respiratory rate 2023-02-07 18:33:00 18 /min Univ ersity of [facility] Body height 2023-02-07 18:33:00 172.7 cm [facility]i [facility] Body weight 2023-02-07 18:33:00 98.113 kg [facility] BMI 2023-02-07 18:33:00 32.89 kg/m2 Universi ty [facility] Oxygen saturation in 2023-02-07 18:33:00 96 /min [facility] Arterial blood by [facility] Pulse oximetry Branch Systolic blood 2022-09-21 21:07:00 114 mm[Hg] [facility] Diastolic blood 2022-09-21 21:07:00 75 mm[Hg] [facility] Heart rate 2022-09-21 21:07:00 98 /min [facility] Body height 2022-09-21 21:07:00 172.7 cm [facility] Body weight 2022-09-21 21:07:00 94.031 kg [facility] BMI 2022-09-21 21:07:00 31.52 kg/m2 [facility] Body height 2022-07-26 19:41:00 172.7 cm [facility] Body weight 2022-07-26 19:41:00 95.709 kg [facility] BMI 2022-07-26 19:41:00 32.08 kg/m2 [facility] Body height 2022-06-15 20:51:00 172.7 cm [facility] Body weight 2022-06-15 20:51:00 95.981 kg [facility] BMI 2022-06-15 20:51:00 32.17 kg/m2 [facility] Systolic blood 2022-02-16 18:09:00 120 mm[Hg] Univer sity of pressure [facility] Diastolic blood 2022-02-16 18:09:00 79 mm[Hg] Unive rsity of pressure [facility] Heart rate 2022-02-16 18:09:00 75 /min [facility] Body height 2022-02-16 18:09:00 172.7 cm [facility] Body weight 2022-02-16 18:09:00 94.348 kg [facility] BMI 2022-02-16 18:09:00 31.63 kg/m2 [facility] Oxygen saturation in 2022-02-16 18:09:00 97 /min [facility] Arterial blood by [facility] Pulse oximetry Branch height 2021-11-11 09:45:00 68.0 [in_i] Common [facility] weight 2021-11-11 09:45:00 201.4 [lb_av] [facility] temperature 2021-11-11 09:45:00 98.2 [degF] [facility] bmi 2021-11-11 09:45:00 30.62 kg/m2 [facility] oximetry 2021-11-11 09:45:00 98 % [facility] respiratory rate 2021-11-11 09:45:00 16 /min [facility] blood pressure 2021-11-11 09:45:00 110 mm[Hg] [facility] - systolic [facility] blood pressure 2021-11-11 09:45:00 79 mm[Hg] [facility] - diastolic [facility] height 2021-05-05 11:15:00 68.0 [in_i] [facility] weight 2021-05-05 11:15:00 203.2 [lb_av] [facility] temperature 2021-05-05 11:15:00 97.6 [degF] [facility] bmi 2021-05-05 11:15:00 30.89 kg/m2 [facility] oximetry 2021-05-05 11:15:00 98 % [facility] blood pressure 2021-05-05 11:15:00 111 mm[Hg] [facility] - systolic [facility] blood pressure 2021-05-05 11:15:00 72 mm[Hg] [facility] diastolic [facility] height 2021-04-06 10:30:00 68.0 [in_i] [facility] weight 2021-04-06 10:30:00 194 [lb_av] [facility] temperature 2021-04-06 10:30:00 97.3 [degF] [facility] bmi 2021-04-06 10:30:00 29.49 kg/m2 [facility] blood pressure 2021-04-06 10:30:00 120 mm[Hg] [facility] - systolic [facility] blood pressure 2021-04-06 10:30:00 86 mm[Hg] [facility] - diastolic [facility] height 2021-03-09 13:00:00 68.0 [in_i] [facility] weight 2021-03-09 13:00:00 199.4 [lb_av] [facility] bmi 2021-03-09 13:00:00 30.32 kg/m2 [facility] blood pressure 2021-03-09 13:00:00 130 mm[Hg] [facility] - systolic [facility] blood pressure 2021-03-09 13:00:00 84 mm[Hg] [facility] - diastolic [facility] height 2021-01-21 13:00:00 68.0 [in_i] [facility] weight 2021-01-21 13:00:00 194 [lb_av] [facility] temperature 2021-01-21 13:00:00 97.3 [degF] [facility] bmi 2021-01-21 13:00:00 29.49 kg/m2 [facility] blood pressure 2021-01-21 13:00:00 132 mm[Hg] [facility] - systolic [facility] blood pressure 2021-01-21 13:00:00 84 mm[Hg] [facility] - diastolic [facility] Procedures Procedure Date / Time Performing Clinician Source Performed DSU PRE-OP 2023-03-14 05:01:00 Doctor Unassigned, No [facility] XR SHOULDER <2 VW RIGHT 2023-03-13 20:47:09 Benny Palencia [facility] ASSIGNMENT OF BENEFITS 2023-03-13 19:59:08 Doctor Unassigned, No [facility] EXTERNAL PROVIDER 2023-03-02 05:01:00 Doctor Unassigned, No [facility] RECORDS [facility] MEDICAL 2023-02-21 05:01:00 Doctor Unassigned, No [facility] RELEASE/CLEARANCE FORMS [facility] DSU PRE-OP 2022-09-21 05:01:00 Doctor Unassigned, No [facility] PATIENT QUESTIONNAIRE 2022-09-12 05:01:00 Doctor Unassigned, No [facility] REFERRAL- 2022-06-21 06:01:00 Doctor Unassigned, No [facility] [place] REQUEST/RESPONSE Name [facility] REFERRAL- 2022-06-15 06:01:00 Doctor Unassigned, No [facility] [place] REQUEST/RESPONSE Name [facility] 2022-04-11 05:01:00 Doctor Unassigned, No [facility] [place] RELEASE/CLEARANCE FORMS Name [facility] Plan of Care Planned Activity Planned Date Details Comments Source Future Scheduled 2028-03-30 DTAP/TDAP/TD VACCINES [facility]:00 (2 - Td or Tdap) [code Medic al Center = DTAP/TDAP/TD VACCINES (2 - Td or Tdap)] Future Scheduled 2028-03-30 DTAP/TDAP/TD VACCINES [facility] 00:00:00 (2 - Td or Tdap) [code Medic al Center = DTAP/TDAP/TD VACCINES (2 - Td or Tdap)] Future Scheduled 2023-04-09 [facility] 07:28:45 malignant neoplasm of colon (procedure) [code = 549248636] Future Scheduled 2023-04-09 SHINGLES VACCINES ([facility] 07:28:45 of 2) [code = SHINGLES VACCINES (1 of 2)] Future Scheduled 2023-04-09 65+ [facility]CCAL [facility] 07:28:45 VACCINE (2 - PPSV23 or PCV20) [code = 65+ PNEUMOCOCCAL VACCINE (2 - PPSV23 or PCV20)] Future Scheduled 2023-04-09 COVID-19 [facility] 07:28:45 season) [code = COVID-19 VACCINE (3 - season)] Future Scheduled 2023-04-09 [facility]FLUENZA VACCINE (#[facility]) [facility]:28[facility]45 [code = INFLUENZA VACCINE (#1)] Future Scheduled 2023-04-09 [facility] 07:28:45 malignant neoplasm of colon (procedure) [code = 730159126] Future Scheduled 2023-04-09 [facility] 07:28:45 malignant neoplasm of colon (procedure) [code = 208241016] Future Scheduled 2023-04-09 [facility] 07:28:45 malignant neoplasm of colon (procedure) [code = 716675269] Future Scheduled 2023-04-09 Hepatitis C screening [facility] Test 07:28:45 (procedure) [code = 875162417] Future Scheduled 2023-04-09 [facility] 07:28:45 malignant neoplasm of colon (procedure) [code = 825341775] Future Scheduled 2023-02-17 [facility] 08:40:57 malignant neoplasm of colon (procedure) [code = 831782973] Future Scheduled 2023-02-17 [facility] 08:40:57 malignant neoplasm of colon (procedure) [code = 092602490] Future Scheduled 2023-02-17 [facility] 08:40:57 malignant neoplasm of colon (procedure) [code = 745763464] Future Scheduled 2023-02-17 Hepatitis C screening [facility] Test 08:40:57 (procedure) [code = 825227478] Future Scheduled 2023-02-17 [facility] 08:40:57 malignant neoplasm of colon (procedure) [code = 353315506] Future Scheduled 2023-02-17 [facility] 08:40:57 malignant neoplasm of colon (procedure) [code = 432950733] Future Scheduled 2023-02-17 SHINGLES VACCINES (1 [facility] Test 08:40:57 of 2) [code = SHINGLES VACCINES (1 of 2)] Future Scheduled 2023-02-17 COVID-19 VACCINE (3 - [facility] Test 08:40:57 Moderna series) [code = COVID-19 VACCINE (3 - Moderna series)] Future Scheduled 2023-02-17 65+ PNEUMOCOCCAL [facility] Test 08:40:57 VACCINE (2 - PPSV23 if available, else PCV20) [code = 65+ PNEUMOCOCCAL VACCINE (2 - PPSV23 if available, else PCV20)] Future Scheduled 2023-02-17 INFLUENZA VACCINE (#[facility]) [facility] Test 08:40:57 [code = INFLUENZA VACCINE (#1)] Future Scheduled 2023-02-10 Influenza Vaccine (#1) [facility] Test 00:00:00 [code = Influenza Medical Ce nter Vaccine (#1)] Future Scheduled 2023-02-[address] [facility] Test 00:00:00 (Season Ended) [code = Medic nv Center INFLUENZA VACCINE (Season Ended)] Future Scheduled 2022-09-21 Hepatitis C screening [facility] Test 16:02:03 (procedure) [code = 905102414] Future Scheduled 2022-09-21 COLONOSCOPY SCREENING [facility] Test 16:02:03 [code = COLONOSCOPY SCREENING] Future Scheduled 2022-09-21 SHINGLES VACCINES (1 Met [facility] Test 16:02:03 of 2) [code = SHINGLES VACCINES (1 of 2)] Future Scheduled 2022-09-21 COVID-19 VACCINE (3 - [facility] Test 16:02:03 Booster for Moderna series) [code = COVID-19 VACCINE (3 - Booster for Moderna series)] Future Scheduled 2022-09-21 65+ [facility] VACCINE (2 - PPSV23 if available, else PCV20) [code = 65+ PNEUMOCOCCAL VACCINE (2 - PPSV23 if available, else PCV20)] Future Scheduled 2022-09-21 INFLUENZA VACCINE [facility] Test 16:02:03 [code = INFLUENZA VACCINE] Future Scheduled 2022-06-[address] [facility] Test 00:00:00 (12+) [code = Medical Center DEPRESSION SCREENING (12+)] Future Scheduled 2022-06-12 FALLS RISK SCREENING [facility] Test 00:00:00 [code = FALLS RISK Medical C enter SCREENING] Future Scheduled 2022-06-[address] [...] Cessation Counseling and Screening (12+)] Future Scheduled 2022-05-[address] [facility] Test 00:00:00 Counseling and Medical Cente r Screening (12+) [code = Tobacco Cessation Counseling and Screening (12+)] Future Scheduled 2020 PNEUMOCOCCAL 65+ [facility] Test 00:00:00 (1 - PCV) [code = Medical Ce nter PNEUMOCOCCAL 65+ YRS (1 - PCV)] Future Scheduled 2020 PNEUMOCOCCAL 65+ YRS [facility] Test 00:00:00 (1 - PCV) [code = Medical Ce nter PNEUMOCOCCAL 65+ YRS (1 - PCV)] Future Scheduled 2005 SHINGLES VACCINES ([address] [facility] Test 00:00:00 of 2) [code = SHINGLES Medic al Center VACCINES (1 of 2)] Future Scheduled 2005 SHINGLES VACCINES ([address] [facility] Test 00:00:00 of 2) [code = SHINGLES Medic al Center VACCINES (1 of 2)] Future Scheduled 1973 HEPATITIS C SCRE[facility]ING [facility] 00:00:00 [code = HEPATITIS C Medical Center SCREENING] Future Scheduled 1973 HEPATITIS C [facility]CRE[facility] 00:00:00 [code = HEPATITIS C Medical Center SCREENING] Future Scheduled 1955 COVID-19 VACCINE (#1) [facility] Test 00:00:00 [code = COVID-[address] VACCINE (#1)] Future Scheduled 1955 COVID-19 VACCINE (#1) [facility] 00:00:00 [code = COVID-[address] VACCINE (#1)] Future Scheduled [address] [facility] Test 00:00:00 (combo) [code = CT Medical C enter Colonography (combo)] Future Scheduled [address] [facility]00 malignant neoplasm of Medica l Center colon (procedure) [code = 774471723] Future Scheduled [address] [facility] 00:00:00 malignant neoplasm of Medica [facility] Center colon (procedure) [code = 154940133] Future Scheduled [address] [facility] 00:00:00 malignant neoplasm of Medica [facility] Center colon (procedure) [code = 979409503] Future Scheduled [address] [facility] 00:00:00 malignant neoplasm of Medica l Center colon (procedure) [code = 209148312] Future Scheduled 1955 Sigmoidoscopy [code = [facility] Sigmoidoscopy] Medical Johanna schmitz Future Scheduled [address] [facility] 00:00:00 (combo) [code = CT Medical C enter Colonography (combo)] Future Scheduled [address] [facility] 00:00:00 malignant neoplasm of Medica l Center colon (procedure) [code = 785909241] Future Scheduled [address] [facility] 00:00:00 malignant neoplasm of Medica [facility] Center colon (procedure) [code = 922006364] Future Scheduled [address] [facility] 00:00:00 malignant neoplasm of Medica l Center colon (procedure) [code = 653776749] Future Scheduled [address] [facility] colon (procedure) [code = 724674689] Future Scheduled 1955 Sigmoidoscopy [facility]code [facility] 00:[facility]:00 Sigmoidoscopy] Medical Johanna schmitz Encounters Start End Encounter Admission Attending Care Care Encounter Source Date/Time Date/Time Type Type Clinicians Facility Department ID 2023-03-28 Outpatient R SEBASTIÁN MAST [facility] SOR [id number] Univers 09:58:18 SEBASTIÁN MAST [facility] 2023-02-08 Outpatient R SEBASTIÁN MAST [facility] SOR 10 [id number] Univers 14:33:07 SEBASTIÁN MAST [facility] 2022-09-22 Outpatient R KEZIA [facility] SOR [id number] Univers 08:57:16 SEBASTIÁN ovalle [facility] 2022-06-23 Outpatient R KEZIA [facility] SOR [id number] Univers 08:08:58 SEBASTIÁN [facility] 2022-02-[address] [facility] [id number] [place] 14:40:28 [id number] [facility] 2022-01-[address] [facility] [id number] [place] 14:10:01 [id number] [facility] 2022-01-[address] [facility] [id number] [place] 08:54:35 [id number] [facility] 2022-01-[address] [facility] [id number] [place] 15:45:55 [id number] [facility] 2021-12-[address] [facility] [id number] [place] 09:37:47 [id number] [facility] 2021-11-[address] [facility] [id number] [place] 13:05:57 [id number] [facility] 2021-11-[address] [facility] [id number] [place] 09:58:28 [id number] [facility] 2021-10-[address] [facility] [id number] [place] 16:27:49 [id number] [facility] 2021-09-[address] [facility] [id number] [place] 09:57:26 [id number] [facility] 2021-07-[address] [id number] Common 13:39:[address]ón17 [facility] 2021-07-[address], [facility] [id number] Common 13:13:[address] [facility] 2021-04-10 Emergency [facility] [id number] Univers 10:37:17 [facility] 2021-04-09 Outpatient KIMBERLY MUELLER Surgery [id number] [facility] 08:07:25 DAVID 2023-04-17 2023-04-17 [facility] [id number] Univers 15:00:00 15:00:00 BENNY rober [facility] 2023-03-30 2023-03-30 Telephone Kezia [facility] 1..840.114 10 [id number] Univers 00:00:00 00:00:00 Sebastián Denny [employer] 350.1.13.10 it y of [place] 4.2.7.2.686 Clarence as RAINA?BLEA [phone] [address] MEDICAL OFFICE BUILDING 2023-03-15 2023-03-15 Prep For Slime [facility] 1.2.840.114 [id number] Univers 00:00:00 00:00:00 Surgery Benny S HEALTH 350.1.13.10 it y of [place] 4.2.7.2.686 Clarence as RAINA?BLEA [phone] Me dictheresa NUÑEZ [address] [facility] OFFICE [facility] 2023-03-14 2023-03-14 Orders Doctor CHYNA 1.2.840.114 [id number] Univers 00:00:00 00:00:00 Only Unassigned, JANNET 350.1.13.10 ity of [place] [facility] 4.2.7.2.686 Clarence as [phone] [address] 2023-03-13 2023-03-13 Outpatient R SLIME [facility] [id number] Univers 15:32:14 23:59:00 BENNY ity of [facility] 2023-03-13 2023-03-13 [facility] 1.2.840.114 [id number] Univers 15:32:14 23:59:00 Encounter Benny S HEALTH 350.1.13.10 [facility] 4.2.7.2.686 Clarence as RAINA?BLEA [phone] Wi kristintheresa NUÑEZ [address] [facility] OFFICE [facility] 2023-03-13 2023-03-13 Office [facility] 1.2.840.114 [id number] Univers 15:00:00 15:49:55 Visit Benny S HEALTH 350.1.13.10 it y of [place] 4.2.7.2.686 Clarence as RAINA?BLEA [phone] Wi kristintheresa NUÑEZ 198 [facility] 2023-03-13 2023-03-13 Orders Doctor CHYNA 1.2.840.114 [id number] Univers 00:00:00 00:00:00 Only Unassigned, JANNET 350.1.13.10 ity of [place] [facility]OSP[facility] 4.2.7.2.686 Clarence as [phone] [address] 2023-03-02 2023-03-02 Orders Doctor CHYNA 1.2.840.114 [id number] Univers 00:00:00 00:00:00 Only Unassigned, JANNET 350.1.13.10 ity of [place] [facility] 4.2.7.2.686 Clarence as [phone] [address] 2023-02-23 2023-02-23 Patient Doctor [facility] 1.2.840.114 [id number] Univers 00:00:00 00:00:00 Secure Msg Unassigned, HEALTH 350.1.13.10 ity of [place] 4.2.7.2.686 Clarence as RAINA?BLEA [phone] Wi amish MURRAY [address] MEDICAL OFFICE [facility] 2023-02-21 2023-02-21 Orders Doctor CHYNA 1.2.840.114 [id number] Univers 00:00:00 00:00:00 Only Unassigned, JANNET 350.1.13.10 ity of [place] [facility]OSPITAL 4.2.7.2.686 Clarence as [phone] [address] 2023-02-10 2023-02-10 [facility] 1.2.840.114 [id number] Univers 00:00:00 00:00:00 Surgery Benny S HEALTH 350.1.13.10 it y of [place] 4.2.7.2.686 Clarence as RAINA?BLEA [phone] Wi kristintheresa NUÑEZ [address] [place] [address] OFFICE [facility] 2023-02-07 2023-02-07 Office [facility] 1.2.840.114 [id number] Univers 13:45:00 14:00:00 Visit Benny S HEALTH 350.1.13.10 it y of [place] 4.2.7.2.686 Clarence as RAINA?BLEA [phone] Wi amish [address] OFFICE [facility] 2023-02-07 2023-02-07 Outpatient Nadir PALENCIA [facility] [id number] Univers 13:45:00 13:45:00 [facility] 2022-10-11 2022-10-11 Outpatient Nadir PALENCIA [facility] [id number] Univers 14:15:00 14:15:00 [facility] 2022-10-10 2022-10-10 Outpatient Nadir PALENCIA [facility] [id number] Univers 15:30:00 15:30:00 [facility] 2022-09-29 2022-09-29 Outpatient Nadir PALENCIA [facility] [id number] Univers 14:15:00 14:15:00 BENNY ity [facility] 2022-09-26 2022-09-26 Telephone [facility] 1.2.840.114 10 [id number] Univers 00:00:00 00:00:00 Sebastián Denny HEALTH 350.1.13.10 it y of [place] 4.2.7.2.686 Clarence as RAINA?BLEA [phone] Wi amish NUÑEZ [address] [place] [address] MEDICAL OFFICE [facility] 2022-09-23 2022-09-23 Outpatient R KEZIA [facility] [id number] Univers 08:00:00 08:00:00 SEBASTIÁN ovalle [facility] 2022-09-22 2022-09-22 Prep For [facility] 1.2.840.114 [id number] Univers 00:00:00 00:00:00 Surgery Sebastián Denny HEALTH 350.1.13.10 it y of [place] 4.2.7.2.686 Clarence as RAINA?BLEA [phone] Wi amish NUÑEZ [address] [place] [address] OFFICE [facility] 2022-09-22 2022-09-22 Telephone [facility] 1.2.840.114 10 [id number] Univers 00:00:00 00:00:00 Sebastián Denny HEALTH 350.1.13.10 it y of [place] 4.2.7.2.686 Clarence as RAINA?BLEA [phone] Wi amish NUÑEZ [address] [place] [address] OFFICE [facility] 2022-09-21 2022-09-21 Office Slime [facility] 1.2.840.114 [id number] Univers 16:15:00 16:30:00 Visit Benny [employer] 350.1.13.10 it y of [place] 4.2.7.2.686 Clarence as RAINA?BLEA [phone] Wi amish NUÑEZ [address] [place] [address] OFFICE [facility] 2022-09-21 2022-09-21 Outpatient R SLIME [facility] [id number] Univers 16:15:00 16:15:00 BENNY rober [facility] 2022-09-21 2022-09-21 Orders Doctor CLEMENTE 1.2.840.114 [id number] Univers 00:00:00 00:00:00 Only Unassigned, JANNET 350.1.13.10 ity of [place] [facility] 4.2.7.2.686 Clarence as [phone] [address] 2022-09-12 2022-09-12 Outpatient R SLIME [facility] [id number] Univers 14:45:00 14:45:00 BENNY ity [facility] 2022-09-12 2022-09-12 Orders Doctor CHYNA 1.2.840.114 [id number] Univers 00:00:00 00:00:00 Only Unassigned, JANNET 350.1.13.10 ity of [place] [facility] 4.2.7.2.686 Clarence as [phone] [address] 2022-09-07 2022-09-07 [facility] [id number] Univers 13:15:00 13:15:00 SEBASTIÁN alexarober [facility] 2022-08-22 2022-08-22 Telephone Slime [facility] 1.2.537.710 [id number] Univers 00:00:00 00:00:00 [facility] 350.1.13.10 it y of [place] 4.2.7.2.686 Clarence as RAINA?BLEA [phone] Wi amish MURRAYEY [address] MEDICAL OFFICE BUILDING 2022-08-18 2022-08-18 Ancillary Wellington Mcrae [facility] 1.2.840. 114 [id number] Univers 15:15:00 16:00:00 Visit Sebastián Mast 350.1.13.10 ity of [place] 4.2.7.2.[place] [phone] Wi amish SERRANO [address] BUILDING 2022-08-18 2022-08-18 Outpatient R KEZIA [facility] [id number] Univers 15:15:00 15:15:00 SEBASTIÁN ovalle [facility] 2022-08-16 2022-08-16 Ancillary Wellington Mcrae [facility] 1.2.840. 114 [id number] Univers 15:15:00 16:00:00 Visit Sebastián Mast 350.1.13.10 ity of [place].7.2.[place] [phone] Me dical NAL 179 [facility] 2022-08-01 2022-08-01 Ancillary Wellington Mcrae [facility] 1.2.840. 114 [id number] Univers 15:15:00 15:48:31 Visit Sebsatián Mast 350.1.13.10 ity [place].7.2.[place] [phone] Wi dical NAL 179 [facility] 2022-07-27 2022-07-27 Ancillary Thor Wellington Wright [facility] 1.2.840. 114 [id number] Univers 15:15:00 15:52:19 Visit Sebastián Mast 350.1.13.10 ity [place].2.[place] [phone] Wi dical NAL 179 [facility] 2022-07-26 2022-07-26 Office Slime [facility] 1.2.840.114 [id number] Univers 13:45:00 14:00:[address] [facility] 350.1.13.10 it [facility] 4.2.7.2.686 Clarence as RAINA?BLEA [phone] [facility] [address] OFFICE [facility] 2022-07-26 2022-07-26 Outpatient R SLIME [facility] [id number] Univers 13:45:00 13:45:00 [facility] 2022-07-25 2022-07-25 Ancillary Wellington Mcrae [facility] 1.2.840. 114 [id number] Univers 15:15:00 15:41:51 Visit Gianna Mastig Denisha VENEGAS 350.1.13.10 ity of [place] 4.2.7.2.[place] [phone] Wi dical NAL 179 [facility] 2022-07-25 2022-07-25 Outpatient R SLIME [facility] [id number] Univers 13:30:00 13:30:00 BENNY [facility] 2022-07-19 2022-07-19 Outpatient R KEZIA [facility] [id number] Univers 13:45:00 14:47:54 [facility] 2022-07-19 2022-07-19 Ancillary Valente Ivett Brown [facility] 1 .2.840.114 [id number] Univers 13:45:00 14:47:54 Visit Fernando Desai 350.1.13.10 ity of [place] 4.2.7.2.686 [facility] [phone] Wi dical NAL 179 [facility] 2022-07-08 2022-07-08 Outpatient [facility] [id number] [facility] 08:15:00 08:15:00 SEBASTIÁN ovalle [facility] 2022-07-07 2022-07-07 Telephone [facility] 1.2.840.114 [id number] Univers 00:00:00 00:00:00 Sebastián Denny HEALTH 350.1.13.10 it y of [place] 4.2.7.2.686 Clarence as RAINA?BLEA [phone] Wi dical TREVOREY [address] [facility] OFFICE [facility] 2022-07-01 2022-07-01 Telephone [facility] 1.2.840.114 [id number] Univers 00:00:00 00:00:00 Sebastián Denny HEALTH 350.1.13.10 it y of [place] 4.2.7.2.686 Clarence as RAINA?BLEA [phone] Wi dical JOAQUIN [address] [facility] OFFICE [facility] 2022-06-30 2022-06-30 Telephone [facility] 1.2.840.114 [id number] Univers 00:00:00 00:00:00 Sebastián Denny HEALTH 350.1.13.10 it y of [place] 4.2.7.2.686 Clarence as RAINA?BLEA [phone] Wi dical TREVOREY [address] [facility] OFFICE [facility] 2022-06-23 2022-06-23 Telephone [facility] 1.2.840.114 [id number] Univers 00:00:00 00:00:00 Sebastián Denny HEALTH 350.1.13.10 it y of [place] 4.2.7.2.686 Clarence as RAINA?BLEA [phone] Wi dical KNEY [address] [facility] OFFICE [facility] 2022-06-21 2022-06-21 Telephone Slime [facility] 1.2.111.228 [id number] Univers 00:00:00 00:00:00 Benny Patel HEALTH 350.1.13.10 it y of [place] 4.2.7.2.686 Clarence as RAINA?BLEA [phone] Wi amish NUÑEZ 198 [facility] 2022-06-21 2022-06-21 Prep For Kezia [facility] 1.2.840.114 [id number] Univers 00:00:00 00:00:00 Surgery Sebastián Denny HEALTH 350.1.13.10 it y of [place] 4.2.7.2.686 Clarence as RAINA?BLEA [phone] Wi amish NUÑEZ 198 [facility] 2022-06-21 2022-06-21 Orders Doctor CHYNA 1.2.840.114 [id number] Univers 00:00:00 00:00:00 Only Unassigned, JANNET 350.1.13.10 ity of [place] [facility] 4.2.7.2.686 Clarence as [phone] [address] 2022-06-15 2022-06-15 Outpatient [facility] [id number] Univers 15:00:00 15:24:50 SEBASTIÁN ity [facility] 2022-06-15 2022-06-15 Office Benny Palencia [facility] 1.2.840.114 [id number] Univers 15:00:00 15:15:00 Visit Sebastián Mast 350.1.13.10 [facility] 4.2.7.2.686 Clarence as RAINA?BLEA [phone] Wi amish NUÑEZ 198 [facility] 2022-06-15 2022-06-15 Orders Doctor CHYNA 1.2.840.114 [id number] Univers 00:00:00 00:00:00 Only Unassigned, JANNET 350.1.13.10 ity of [place] [facility] 4.2.7.2.686 Clarence as [phone] [address] 2022-06-02 2022-06-02 Out[facility] [id number] Univers 10:00:00 10:00:00 SEBASTIÁN ovalle [facility] 2022-04-26 2022-04-26 Telephone [facility] 1.2.840.114 [id number] Univers 00:00:00 00:00:00 Sebastián MOODY 350.1.13.10 it y of [place] 4.2.7.2.686 Clarence as RAINA?BLEA [phone] Wi amish NUÑEZ [address] [place] MEDICAL OFFICE [facility] 2022-04-11 2022-04-11 Orders Doctor CHYNA 1.2.840.114 [id number] Univers 00:00:00 00:00:00 Only Unassigned, JANNET 350.1.13.10 ity of [place] [facility] 4.2.7.2.686 Clarenec as [phone] [facility] [address] 2022-02-16 2022-02-16 Office [facility] 1.2.111.446 [id number] Univers 13:15:00 13:30:00 Visit Sebastián MOODY 350.1.13.10 it y of [place] 4.2.7.2.686 Clarence as RAINA?BLEA [phone] Wi amish NUÑEZ [address] [place] [address] OFFICE [facility] 2022-02-16 2022-02-16 Outpatient [facility] [id number] Univers 13:15:00 13:15:00 SEBASTIÁN ovalle [facility] 2022-01-31 2022-01-31 Outpatient [facility] [id number] Univers 11:13:58 23:59:00 SEBASTIÁN ovalle [facility] 2022-01-31 2022-01-31 [facility] 1.2.840.114 [id number] Univers 10:50:00 23:59:00 Encounter Sebastián VENEGAS 350.1.13.10 ity of [place] 4[place]2.7.2.[place] [phone] [facility] [address] 2022-01-31 2022-01-31 Outpatient [facility] [id number] Univers 13:45:00 13:45:00 SEBASTIÁN ovalle [facility] 2022-01-27 2022-01-27 Outpatient [facility] [id number] Univers 10:06:26 23:59:00 SEBASTIÁN ovalle [facility] 2022-01-27 2022-01-27 Office Kezia [facility] 1.2.354.741 [id number] Univers 10:00:00 10:33:21 Visit Sebastián [facility] 350.1.13.10 it y of [place] 4.2.7.2.686 Calrence as RAINA?BLEA [phone] [address] MEDICAL OFFICE [facility] 2022-01-27 2022-01-27 Outpatient [facility] [id number] Univers 10:06:26 10:06:26 SEBASTIÁN rober [facility] 2022-01-27 2022-01-27 Orders Doctor CLEMENTE 1.2.840.114 [id number] Univers 00:00:00 00:00:00 Only Unassigned, JANNET 350.1.13.10 [facility] 4.2.7.2.686 Clarence as [phone] [address] 2021-12-31 2021-12-31 Orders [facility] 1.2.840.1 [id number] Methodi 00:00:00 00:00:00 Only Jamia gabriel 05146.1.1 769 s t D 3.430.2.7 Hospit a .3.230869 l .8 2021-12-07 2021-12-07 Orders [facility] 1.2.840.1 [id number] Methodi 00:00:00 00:00:00 Only Jamia gabriel 54450.1.1 466 s t D 3.430.2.7 Hospit a .3.787718 l .8 2021-11-24 2021-11-24 (TEL) STLMLC STLMLC [id number] Co mmon 00:00:00 00:00:00 [facility] 2021-11-17 2021-11-17 (PROC) STLMLC STLMLC [id number] Co mmon 00:00:00 00:00:00 Procedure Spir it [facility] 2021-11-11 2021-11-11 OFFICE STLMLC STLMLC [id number] Co mmon 00:00:00 00:00:00 VISIT Mehul ESTAB PT - CHI LEVEL 2 [facility] 2021-09-09 2021-09-09 Outpatient GALATI, [facility] [id number] [place] 00:00:00 00:00:00 BRAULIO [address] 2021-09-09 2021-09-09 Outpatient GALATI, [facility] [id number] [place] 00:00:00 00:00:00 BRAULIO [address] 2021-09-09 2021-09-09 Outpatient GALATI, [facility] [id number] [place] 00:00:00 00:00:00 BRAULIO [address] 2021-09-09 2021-09-09 Outpatient GALATI, [facility] [id number] [place] 00:00:00 00:00:00 BRAULIO [address] 2021-09-09 2021-09-09 Outpatient GALATI, [facility] [id number] [place] 00:00:00 00:00:00 BRAULIO [address] 2021-07-21 2021-07-31 Inpatient E DOMINICK, [facility] [id number] [facility] 07:58:00 12:37:00 BRINDA 2021-05-12 2021-05-12 Outpatient ROSMERY [facility] [id number] SLE 12:05:02 23:59:00 2021-05-05 2021-05-05 OFFICE STLMLC STLMLC [id number] Co mmon 00:00:00 00:00:00 VISIT Mehul FAUST PT - CHI LEVEL 2 [facility] 2021-05-04 2021-05-04 (TEL) STLMLC STLMLC [id number] Co mmon 00:00:00 00:00:00 [facility] 2021-04-13 2021-04-13 Outpatient ROSMERY DELGADO [facility] [id number] SLE 00:00:00 00:00:00 LENCHO 2021-04-06 2021-04-06 (TEL) STLMLC STLMLC [id number] Co mmon 00:00:00 00:00:00 [facility] 2021-04-06 2021-04-06 OFFICE STLMLC STLMLC [id number] Co mmon 00:00:00 00:00:00 VISIT [facility] PT - CHI LEVEL 4 [facility] 2021-03-16 2021-03-16 (TEL) STLMLC STLMLC [id number] Co mmon 00:00:00 00:00:00 [facility] 2021-03-16 2021-03-16 (TEL) STLMLC STLMLC [id number] Co mmon 00:00:00 00:00:00 [facility] 2021-03-10 2021-03-10 (TEL) STLMLC STLMLC [id number] Co mmon 00:00:00 00:00:00 [facility] 2021-03-09 2021-03-09 OFFICE STLMLC STLMLC [id number] Co mmon 00:00:00 00:00:00 VISIT [facility] PT - CHI LEVEL 4 [facility] 2021-01-29 2021-01-29 (TEL) STLMLC STLMLC [id number] Co mmon 00:00:00 00:00:00 [facility] 2021-01-29 2021-01-29 (TEL) STLMLC STLMLC [id number] Co mmon 00:00:00 00:00:00 [facility] 2021-01-27 2021-01-27 OFFICE STLMLC STLMLC [id number] Co mmon 00:00:00 00:00:00 VISIT EST Spir it PT LEVEL 3 [facility] 2021-01-27 2021-01-27 (TEL) STLMLC STLMLC [id number] Co mmon 00:00:00 00:00:00 [facility] 2021-01-22 2021-01-22 (TEL) STLMLC STLMLC [id number] Co mmon 00:00:00 00:00:00 [facility] 2021-01-21 2021-01-21 OFFICE STLMLC STLMLC [id number] Co mmon 00:00:00 00:00:00 VISIT [facility] PT - CHI LEVEL 4 [facility] 2020-11-26 2020-11-26 Outpatient STLC STLC [id number] Common 00:00:00 00:00:00 [facility] 2020-11-20 2020-11-20 [facility] [id number] Common 00:00:00 00:00:00 [facility] 2020-05-21 2020-05-22 Emergency Girish Taylor [facility] 1.2.840 .114 [id number] 19:04:00 18:10:00 Tasneem Shaw 350.1.13.[address] [place] [address] [place] [address] [phone] [facility] 2020-05-21 2020-05-22 Emergency Girish Taylor [facility] 1.2.840 .114 [id number] [facility] 19:04:00 18:10:00 Tasneem [place] 350.1.13.10 ity of [place] 4.2.7.2.[address] [facility] [phone] [address] 2019-12-01 2019-12-01 Refill Charmaine, [facility] 1.2.840.114 [id number] 00:00:00 00:00:00 Kit Venegas 350.1.13.10 [place] 4.2.7.2.686 Professio [phone] [address] 2019-12-01 2019-12-01 Georgie Campos [facility] 1.2.840.114 [id number] [facility] 00:00:00 00:00:00 Kit Venegas 350.1.13.10 ity of [place] 4.2.7.2.686 [facility] Professio [phone] Wi dical [address] 2019-11-08 2019-11-08 Reffabián Campos [facility] 1.2.840.114 [id number] 00:00:00 00:00:00 Kit Venegas 350.1.13.10 [place] 4.2.7.2.686 Professio [phone] [address] 2019-11-08 2019-11-08 Reffabián Campos, [facility] 1.2.840.114 [id number] [facility] 00:00:00 00:00:00 Kit Venegas 350.1.13.10 [place] [phone] [address] 2019-10-17 2019-10-17 Reffabián Campos, [facility] 1.2.840.114 [id number] 00:00:00 00:00:00 Kit Venegas 350.1.13.10 [place] 4.2.7.2.686 Professio [phone] [address] 2019-10-17 2019-10-17 Georgie Campos, [facility] 1.2.840.114 [id number] [facility] 00:00:00 00:00:00 Kit Venegas 350.1.13.10 [place] [phone] [address] 2019-09-16 2019-09-16 Reffabián Campos, [facility] 1.2.840.114 [id number] 00:00:00 00:00:00 Kit Venegas 350.1.13.10 [place] 4.2.7.2.686 Professio [phone] [address] 2019-09-16 2019-09-16 Georgie Campos, [facility] 1.2.840.114 [id number] [facility] 00:00:00 00:00:00 Kit Venegas 350.1.13.10 [place]2.[place] [phone] [address] 2019-07-18 2019-07-18 Georgie Campos, [facility] 1.2.840.114 [id number] 00:00:00 00:00:00 Kit Venegas 350.1.13.10 [place] 4.2.7.2.686 Professio [phone] [address] 2019-07-18 2019-07-18 Reffabián Campos, [facility] 1.2.840.114 [id number] [facility] 00:00:00 00:00:00 Kit Venegas 350.1.13.10 [place] [phone] [address] 2019-07-17 2019-07-17 [facility] 1.2.840.114 [id number] 00:00:00 00:00:00 Kit Venegas 350.1.13.10 [place] 4.2.7.2.686 Professio [phone] [address] 2019-07-17 2019-07-17 [facility] 1.2.840.114 [id number] [facility] 00:00:00 00:00:00 Kit Venegas 350.1.13.10 [place]2.[place] [phone] [address] 2019-05-27 2019-05-27 Outpatient R CHARMAINE KIT [facility] [id number] [facility] 11:00:00 13:00:07 [facility]-10-30 2018-10-30 Orders Doctor CHYNA 1.2.840.114 [id number] 00:00:00 00:00:00 Only Unassigned, JANNET 350.1.13.10 [place] [facility] 4.2.7.2.686 [phone] [id number] 2018-10-30 2018-10-30 Orders Doctor CHYNA 1.2.840.114 [id number] [facility] 00:00:00 00:00:00 Only Unassigned, JANNET [id number] ity of [place] [facility] [id number] Cla[place] as [phone] [address] Results Test Description Test Time Test Comments Results Result [facility] e Comments TISSUE EXAM 2019-04-15 Surgical Pathology 18:37:00 Report Case: [id number] Authorizing Provider: Lencho Delgado, Collected: 04/09/2019 Slime KELLY Ordering Location: [facility] Received: 04/09/2019 1223 PERIOPERATIVE SERVICES Pathologist: Jose Alfredo Dozier MD Specimen: Aortic Valve, AORTIC VALVE LEAFLET HEART, AORTIC VALVE, VALVULECTOMY:LEAFLETS WITH NODULAR CALCIFIC ATHEROSCLEROTIC THICKENING Signing Pathologist Direct Phone Line: [phone] ally signed by Jose Alfredo Dozier MD on 04/15/2019 at 6:37 [id number]; [id number] aortic valve stenosisAortic valve leafletReceived fresh with patient's demographic information and surgical accession number are fragments of calcified valvular leaflet, 3.5 x 2 x up to 1 cm in greatest dimension. Learning Design Specialist section submitted in A1 for decalcification. [...] = 413) 0 /100 WBC 0 -0 [id number] 04:42:00 Test Item Value Reference Range Interpretation Comments MAGNESIUM (BEAKER) (test code = 1.8 mg/dL 1.6-2.6 627) BASIC METABOLIC [id number] 04:42:00 Test Item Value Reference Range Interpretation [...] PATIEN TS. CBC W/PLT COUNT & AUTO [id number] 04:28:00 Test Item Value Reference Range Interpretation [...] = 2801) CBC W/PLT COUNT & AUTO [id number] 11:55:00 Test Item Value Reference Range Interpretation [...] 0-1 H PERCENT (BEAKER) (test code = 2809) [id number] 08:43:00 Test Item Value Reference Range Interpretation Comments MAGNESIUM (BEAKER) 1.9 mg/dL 1.6-2.6 Specimen slightly (test code = 627) hemolyzed BASIC METABOLIC [id number] 08:43:00 Test Item Value Reference Range Interpretation [...] S NOT APPLICABLE FOR DIALYSIS PATIEN TS. [id number] 03:36:00 Test Item Value Reference Range Interpretation Comments MAGNESIUM (BEAKER) (test code = 1.8 mg/dL 1.6-2.6 627) BASIC METABOLIC [id number] 03:36:00 Test Item Value Reference Range Interpretation [...] PATIEN TS. CBC W/PLT COUNT & AUTO [id number] 03:10:00 Test Item Value Reference Range Interpretation [...] 0-1 PERCENT (BEAKER) (test code = 2801) [id number] 06:05:00 Test Item Value Reference Range Interpretation Comments MAGNESIUM (BEAKER) (test code = 1.9 mg/dL 1.6-2.6 627) BASIC METABOLIC [id number] 06:05:00 Test Item Value Reference Range Interpretation [...] PATIEN TS. CBC W/PLT COUNT & AUTO [id number] 05:42:00 Test Item Value Reference Range Interpretation [...] PERCENT (BEAKER) (test code = 2801) POCT-GLUCOSE [id number] 18:07:00 Test Item Value Reference Range Interpretation Comments POC-GLUCOSE METER 97 mg/dL 70-110 : [facility] (test code = [facility], 1538) [address]: Picture Framer/Techni criss ID = [id number] for IRAIS ESQUIVEL POCT-GLUCOSE [id number] 13:23:00 Test Item Value Reference Range Interpretation Comments POC-GLUCOSE METER 92 mg/dL 70-110 : TESTED A T [facility] 6720 (BEAKER) (test code = [facility], 1538) 05160: Picture Framer/Techni criss ID = [id number] for IRAIS ESQUIVEL TROPONIN [id number] 12:02:00 Test Item Value Reference Range Interpretation Comments TROPONIN I (BEAKER) (test code = 0.66 ng/mL 0.00-0.03 [facility]) Troponin I (TnI) levels must be interpreted [...] acidosis, acute neurological disease, and persistent tachyarrhythmia.POCT-GLUCOSE [id number] 08:03:00 Test Item Value Reference Range Interpretation Comments POC-GLUCOSE METER 99 mg/dL 70-110 : [facility] ([facility]РИ[facility]) (test code = [place], 1538) [address]: Picture Framer/Techni criss ID = [id number] for LEMO N, IRAIS RAD, CHEST, 1 VIEW, NON [id number] 07:02:00Reason for exam:->chest tubeShould this be performed at the bedside?->YesFINAL REPORT CLINICAL INDICATION: Support lines. Comparison: 04/10/2019 The card iomediastinal contours are stable. Central pulmonary vascular prominence and bilateral parenchymal and pleural opacities are similar to previous. There is no pneumothorax. A right IJ CVC has been removed. Signed: [facility]io [facility] Verified Date/Time: 04/11/2019 07:02:55 TROPONIN [id number] 03:58:00 Test Item Value Reference Range Interpretation [...] failure, acidosis, acute neurological disease, and persistent tachyarrhythmia.[id number] 03:34:00 Test Item Value Reference Range Interpretation Comments PHOSPHORUS (МАРИЯ) (test code = 2.4 mg/dL 2.3-4.7 604) [id number] 03:34:00 Test Item Value Reference Range Interpretation Comments MAGNESIUM (BEAKER) (test code = 2.0 mg/dL 1.6-2.6 627) BASIC METABOLIC [id number] 03:34:00 Test Item Value Reference Range Interpretation [...] 0-0 (BEAKER) (test code = 413) POCT-GLUCOSE [id number] 22:10:00 Test Item Value Reference Range Interpretation Comments POC-GLUCOSE METER 139 mg/dL 70-110 H : TESTED A T [facility] 6720 (BEAKER) (test code = [facility], 1538) 27182: Picture Framer/Techni criss ID = [id number] for LYUBOV MARMOLEJO POCT-GLUCOSE [id number] 21:27:00 Test Item Value Reference Range Interpretation Comments POC-GLUCOSE METER 126 mg/dL 70-110 H : TESTED A T [facility] 6720 ([facility]) (test code = [facility], 1538) [address]60[address]: Picture Framer/Techni criss ID = [id number] for Cr uz, Natty POCT-GLUCOSE [id number] 12:13:00 Test Item Value Reference Range Interpretation Comments POC-GLUCOSE METER 190 mg/dL 70-110 H : TESTED A T [facility] 6720 ([facility]) (test code = [facility], 1538) 18[address]: Picture Framer/Techni criss ID = [id number] for OM MIRELA, ALICEA RAD, CHEST, 1 VIEW, NON [id number] 04:52:00while patient is intubated or has chest [...] surgical changes.Additional findings: None. Signed: Tana Cortés MDReport Verified Date/Time: 04/10/2019 04:52:01 CBC (HEMOGRAM ONLY)2019-04-10 [...] /100 WBC 0-0 (test code = 413) [id number] 03:40:00 Test Item Value Reference Range Interpretation Comments PHOSPHORUS (BEAKER) (test code = 4.4 mg/dL 2.3-4.7 604) [id number] 03:40:00 Test Item Value Reference Range Interpretation Comments MAGNESIUM (BEAKER) (test code = 1.9 mg/dL 1.6-2.6 627) BASIC METABOLIC [id number] 03:40:00 Test Item Value Reference Range Interpretation [...] NOT APPLICABLE FOR DIALYSIS PATIEN TS. POCT-GLUCOSE [id number] 23:09:00 Test Item Value Reference Range Interpretation Comments POC-GLUCOSE METER 124 mg/dL 70-110 H : [facility] (BEAKER) (test code = [facility], 153) 17802: Picture Framer/Techni criss ID = [id number] for CLAUDIA ERICKSON POCT-GLUCOSE [id number] 18:45:00 Test Item Value Reference Range Interpretation Comments POC-GLUCOSE METER 145 mg/dL 70-110 H : TESTED A T [facility] 6720 (BEAKER) (test code = [facility], 1538) [address]: Picture Framer/Techni criss ID = [id number] for Brown Santos POCT-GLUCOSE [id number] 17:16:00 Test Item Value Reference Range Interpretation Comments POC-GLUCOSE METER 154 mg/dL 70-110 H : Will Rep eat Test: (BEAKER) (test code = TESTED AT [facility] 6720 1538) [facility], [address]: Picture Framer/Techni criss ID = [id number] for WEST LLLUISOE BLOOD GAS, [id number] 16:11:00 Test Item Value Reference Range Interpretation [...] -29 = 388) BASE EXCESS ARTERIAL (BEAKER) -0.3 mmol/L -2.0-3.0 (test code = 387) PATIENT TEMPERATURE (BEAKER) 36.7 C (test code = 1818) FIO2 (BEAKER) (test code = 1819) 40.0 % [id number] 14:13:00 Test Item Value Reference Range Interpretation Comments MAGNESIUM (BEAKER) (test code = 1.6 mg/dL 1.6-2.6 627) RAD, CHEST, 1 VIEW, NON [id number] 13:42:00Reason for exam:->Status post CV Surgery post [...] [place] Verified Date/Time: 04/09/2019 13:42:07 Reading Location: [facility] Reading Room CBC W/PLT COUNT & AUTO [id number] 13:21:00 Test Item Value Reference Range Interpretation [...] = 3438) Received comment: User comments: Slide comments:[id number] 13:20:00 Test Item Value Reference Range Interpretation Comments FIBRINOGEN LEVEL (BEAKER) (test 222 mg/dl 225-434 L code = 658) [id number] 13:20:00 Test Item Value Reference Range Interpretation Comments PARTIAL THROMBOPLASTIN TIME 34.1 seconds 22.5-36.0 (BEAKER) (test code = 760) PROTHROMBIN [id number] 13:19:00 Test Item Value Reference Range Interpretation [...] is 2.5-3.5 for patients wiht mechanical heart valves.[id number] 13:17:00 Test Item Value Reference Range Interpretation Comments PHOSPHORUS (BEAKER) (test code = 3.5 mg/dL 2.3-4.7 604) BASIC METABOLIC [id number] 13:17:00 Test Item Value Reference Range Interpretation [...] APPLICABLE FOR DIALYSIS PATIEN TS. LACTIC ACID, [id number] 13:13:00 Test Item Value Reference Range Interpretation Comments LACTATE BLOOD ARTERIAL (2) 0.9 mmol/L 0.5-2.2 (BEAKER) (test code = 2874) CALCIUM, [id number] 13:03:00 Test Item Value Reference Range Interpretation Comments CALCIUM IONIZED (BEAKER) (test 1.19 mmol/L 1.12-1.27 code = 698) PH, BLOOD (BEAKER) (test code = 7.36 1810) BLOOD GAS, [id number] 13:02:00 Test Item Value Reference Range Interpretation [...] code = 1819) 60.0 % OXYGEN SATURATION, [id number] 12:56:00 Test Item Value Reference Range Interpretation [...] 59.5 MM 55.0-65.0 (test code = 1413) [id number] 12:03:00 Test Item Value Reference Range Interpretation Comments FIBRINOGEN LEVEL (BEAKER) (test 224 mg/dl 225-434 L code = 658) [id number] 12:03:00 Test Item Value Reference Range Interpretation Comments PARTIAL THROMBOPLASTIN TIME 37.1 seconds 22.5-36.0 H (BEAKER) (test code = 760) PROTHROMBIN [id number] 12:02:00 Test Item Value Reference Range Interpretation [...] 2.5-3.5 for patients wiht mechanical heart valves.PLATELET [id number] 11:51:00 Test Item Value Reference Range Interpretation Comments PLATELET COUNT (BEAKER) (test 116 K/CU MM 150-450 L code = 756) POTASSIUM-STAT [id number] 11:47:00 Test Item Value Reference Range Interpretation Comments POTASSIUM (BEAKER) (test code = 4.8 meq/L 3.6-5.5 379) BLOOD GAS, [id number] 11:47:00 Test Item Value Reference Range Interpretation [...] (test code = 1819) 97.0 % CALCIUM, [id number] 11:47:00 Test Item Value Reference Range Interpretation Comments CALCIUM IONIZED (BEAKER) (test 1.08 mmol/L 1.12-1.27 L code = 698) PH, BLOOD (BEAKER) (test code = 7.30 1810) GLUCOSE-STAT [id number] 11:47:00 Test Item Value Reference Range Interpretation Comments GLUCOSE RANDOM (BEAKER) (test code 175 mg/dL 70-110 H = 652) SODIUM NA-STAT [id number] 11:47:00 Test Item Value Reference Range Interpretation Comments SODIUM (BEAKER) (test code = 381) 133 meq/L 135-148 L HGB/HCT (H&H) - STAT [id number] 11:47:00 Test Item Value Reference Range Interpretation [...] L (test code = 1413) BLOOD GAS, [id number] 11:17:00 Test Item Value Reference Range Interpretation [...] (test code = 1819) 91.0 % GLUCOSE-STAT [id number] 11:17:00 Test Item Value Reference Range Interpretation Comments GLUCOSE RANDOM (BEAKER) (test code 149 mg/dL 70-110 H = 652) HGB/HCT (H&H) - STAT [id number] 11:17:00 Test Item Value Reference Range Interpretation Comments HEMOGLOBIN (BEAKER) (test code = 8.5 g/dL 13.0-16.8 L 410) HEMATOCRIT (BEAKER) (test code = 25.0 % 40.0-50.0 L 411) SODIUM NA-STAT [id number] 11:17:00 Test Item Value Reference Range Interpretation Comments SODIUM (BEAKER) (test code = 381) 133 meq/L 135-148 L POTASSIUM-STAT [id number] 11:16:00 Test Item Value Reference Range Interpretation Comments POTASSIUM (BEAKER) (test code = 4.9 meq/L 3.6-5.5 379) [id number] 11:10:00 Test Item Value Reference Range Interpretation Comments ACTIVATED CLOTTING TIME 125 sec Refe rence Range: 74-137 (BEAKER) (test code = second s, 441) Baseline/TESTED AT [place] [address] 0 [id number] 11:10:00 Test Item Value Reference Range Interpretation Comments ACTIVATED CLOTTING TIME 549 sec Refe rence Range: 74-137 (BEAKER) (test code = second s, 441) Baseline/TESTED AT [place] [address] 0 [id number] 11:10:00 Test Item Value Reference Range Interpretation Comments ACTIVATED CLOTTING TIME 675 sec Refe rence Range: 74-137 (BEAKER) (test code = second s, 441) Baseline/TESTED AT [place] [address] 0 [id number] 11:10:00 Test Item Value Reference Range Interpretation Comments ACTIVATED CLOTTING TIME 885 sec Refe rence Range: 74-137 (BEAKER) (test code = second s, 441) Baseline/TESTED AT [address] [address] [id number] 11:10:00 Test Item Value Reference Range Interpretation Comments ACTIVATED CLOTTING TIME 643 sec Refe rence Range: 74-137 (BEAKER) (test code = second s, 441) Baseline/TESTED AT [place] [address] 0 [id number] 10:55:00 Test Item Value Reference Range Interpretation Comments FIBRINOGEN LEVEL (BEAKER) (test 228 mg/dl 225-434 code = 658) [id number] 10:55:00 Test Item Value Reference Range Interpretation Comments PARTIAL THROMBOPLASTIN TIME 41.1 seconds 22.5-36.0 H (BEAKER) (test code = 760) PROTHROMBIN [id number] 10:54:00 Test Item Value Reference Range Interpretation [...] 2.5-3.5 for patients wiht mechanical heart valves.PLATELET [id number] 10:44:00 Test Item Value Reference Range Interpretation Comments PLATELET COUNT (BEAKER) (test code 83 K/CU MM 150-450 L = 756) BLOOD GAS, [id number] 10:44:00 Test Item Value Reference Range Interpretation Comments PH ARTERIAL (BEAKER) (test code = 7.41 7.35-7.45 383) PCO2 ARTERIAL (BEAKER) (test code 38 mmHg 35-45 = 384) PO2 ARTERIAL (BEAKER) (test code 357 mmHg 80-90 H = 385) O2 SATURATION ARTERIAL (BEAKER) 99.8 % 96.0-97.0 H (test code = 386) HCO3 ARTERIAL (BEAKER) (test code 24 mmol/L = 388) BASE EXCESS ARTERIAL (BEAKER) -0.8 mmol/L -2.0-3.0 (test code = 387) PATIENT TEMPERATURE (BEAKER) 36.5 C (test code = 1818) FIO2 (BEAKER) (test code = 1819) 92.0 % SODIUM NA-STAT [id number] 10:44:00 Test Item Value Reference Range Interpretation Comments SODIUM (BEAKER) (test code = 381) 130 meq/L 135-148 L GLUCOSE-STAT [id number] 10:44:00 Test Item Value Reference Range Interpretation Comments GLUCOSE RANDOM (BEAKER) (test code 154 mg/dL 70-110 H = 652) HGB/HCT (H&H) - STAT [id number] 10:44:00 Test Item Value Reference Range Interpretation Comments HEMOGLOBIN (BEAKER) (test code = 9.1 g/dL 13.0-16.8 L 410) HEMATOCRIT (BEAKER) (test code = 27.0 % 40.0-50.0 L 411) CALCIUM, [id number] 10:44:00 Test Item Value Reference Range Interpretation Comments CALCIUM IONIZED (BEAKER) (test 1.11 mmol/L 1.12-1.27 L code = 698) PH, BLOOD (BEAKER) (test code = 7.40 1810) POTASSIUM-STAT [id number] 10:40:00 Test Item Value Reference Range Interpretation Comments POTASSIUM (BEAKER) (test code = 5.0 meq/L 3.6-5.5 379) BLOOD GAS, [id number] 09:57:00 Test Item Value Reference Range Interpretation [...] (test code = 1819) 80.0 % GLUCOSE-STAT [id number] 09:57:00 Test Item Value Reference Range Interpretation Comments GLUCOSE RANDOM (BEAKER) (test code 168 mg/dL 70-110 H = 652) SODIUM NA-STAT [id number] 09:57:00 Test Item Value Reference Range Interpretation Comments SODIUM (BEAKER) (test code = 381) 131 meq/L 135-148 L POTASSIUM-STAT [id number] 09:57:00 Test Item Value Reference Range Interpretation Comments POTASSIUM (BEAKER) (test code = 5.9 meq/L 3.6-5.5 H 379) HGB/HCT (H&H) - STAT [id number] 09:57:00 Test Item Value Reference Range Interpretation Comments HEMOGLOBIN (BEAKER) (test code = 8.5 g/dL 13.0-16.8 L 410) HEMATOCRIT (BEAKER) (test code = 25.0 % 40.0-50.0 L 411) BLOOD GAS, [id number] 09:31:00 Test Item Value Reference Range Interpretation [...] code = 1819) 65.0 % SODIUM NA-STAT [id number] 09:31:00 Test Item Value Reference Range Interpretation Comments SODIUM (BEAKER) (test code = 381) 131 meq/L 135-148 L GLUCOSE-STAT [id number] 09:31:00 Test Item Value Reference Range Interpretation Comments GLUCOSE RANDOM (BEAKER) (test code 175 mg/dL 70-110 H = 652) HGB/HCT (H&H) - STAT [id number] 09:31:00 Test Item Value Reference Range Interpretation Comments HEMOGLOBIN (BEAKER) (test code = 7.7 g/dL 13.0-16.8 L 410) HEMATOCRIT (BEAKER) (test code = 23.0 % 40.0-50.0 L 411) POTASSIUM-STAT [id number] 09:29:00 Test Item Value Reference Range Interpretation Comments POTASSIUM (BEAKER) (test code = 5.5 meq/L 3.6-5.5 379) POTASSIUM-STAT [id number] 09:07:00 Test Item Value Reference Range Interpretation Comments POTASSIUM (BEAKER) 6.9 meq/L 3.6-5.5 HH Sample NO T Hemolyzed. (test code = 379) BLOOD GAS, [id number] 09:05:00 Test Item Value Reference Range Interpretation [...] (test code = 1819) 70.0 % GLUCOSE-STAT [id number] 09:05:00 Test Item Value Reference Range Interpretation Comments GLUCOSE RANDOM (BEAKER) (test code 216 mg/dL 70-110 H = 652) HGB/HCT (H&H) - STAT [id number] 09:05:00 Test Item Value Reference Range Interpretation Comments HEMOGLOBIN (BEAKER) (test code = 8.0 g/dL 13.0-16.8 L 410) HEMATOCRIT (BEAKER) (test code = 24.0 % 40.0-50.0 L 411) SODIUM NA-STAT [id number] 09:05:00 Test Item Value Reference Range Interpretation Comments SODIUM (BEAKER) (test code = 381) 123 meq/L 135-148 L GLUCOSE-STAT [id number] 08:03:00 Test Item Value Reference Range Interpretation Comments GLUCOSE RANDOM (BEAKER) (test code 107 mg/dL 70-110 = 652) POTASSIUM-STAT [id number] 08:03:00 Test Item Value Reference Range Interpretation Comments POTASSIUM (BEAKER) (test code = 4.2 meq/L 3.6-5.5 379) BLOOD GAS, [id number] 08:03:00 Test Item Value Reference Range Interpretation [...] code = 1819) 100.0 % SODIUM NA-STAT [id number] 08:03:00 Test Item Value Reference Range Interpretation Comments SODIUM (BEAKER) (test code = 381) 130 meq/L 135-148 L HGB/HCT (H&H) - STAT [id number] 08:03:00 Test Item Value Reference Range Interpretation Comments HEMOGLOBIN (BEAKER) (test code = 12.3 g/dL 13.0-16.8 L 410) HEMATOCRIT (BEAKER) (test code = 36.0 % 40.0-50.0 L 411) CALCIUM, [id number] 08:02:00 Test Item Value Reference Range Interpretation Comments CALCIUM IONIZED (BEAKER) (test 1.23 mmol/L 1.12-1.27 code = 698) PH, BLOOD (BEAKER) (test code = 7.45 1810) POCT-GLUCOSE [id number] 06:05:00 Test Item Value Reference Range Interpretation Comments POC-GLUCOSE METER 96 mg/dL 70-110 : [facility] (BEAKER) (test code = [facility] [place] [facility], 1538) [address]: Picture Framer/Techni criss ID = [id number] for JORD AN, LACRYSTAL RAD, CHEST, 2 [id number] 13:23:00In departmentReason for exam:->Aoritc valve replacement Pre op screenFINAL REPORT CLINICAL HISTORY: Aortic valve replacement Pre op screen TECHNIQUE: 2 views of the chest COMPARISON: None IMPRESSION: There are no focal infiltrates or effusions. The c ardiomediastinal silhouette is within normal limits for size. The osseous structures appear intact. Signed: Jaiden Galvan MDReport Verified Date/Time: 04/04/2019 13:23:46 Reading Location: [facility] Radiology Reading Room HEMOGLOBIN [id number] 13:07:00 Test Item Value Reference Range Interpretation Comments HEMOGLOBIN A1C (BEAKER) (test code = 4.7 % 4.3-6.1 368) [id number] 12:23:00 Test Item Value Reference Range Interpretation Comments MAGNESIUM (BEAKER) (test code = 2.0 mg/dL 1.6-2.6 627) COMPREHENSIVE METABOLIC [id number] 12:23:00 Test Item Value Reference Range Interpretation [...] NOT APPLICABLE FOR DIALYSIS PATIEN TS. LIPID [id number] 12:23:00 Test Item Value Reference Range Interpretation [...] 100-129 Borderline 130-159 High 160-189 Very High [id number] 12:02:00 Test Item Value Reference Range Interpretation Comments PARTIAL THROMBOPLASTIN TIME 34.5 seconds 22.5-36.0 (BEAKER) (test code = 760) PROTHROMBIN [id number] 12:01:00 Test Item Value Reference Range Interpretation [...] mechanical heart valves.CBC W/PLT COUNT & AUTO [id number] 11:52:00 Test Item Value Reference Range Interpretation [...] 0-1 H PERCENT (BEAKER) (test code = 5185)
[2023-04-20 17:05] LABS: Absolute Lymphocytes (CBC) 1.1 K/uL (0.7-4.9); Hematocrit 37.2 % (39.6-49.0); Lymphocytes % 31.7 % (15.3-44.8); MCV 103.8 fL (80-100); MPV 6.7 fL (7.6-11.3); Platelets 115 thou/uL (152-406); RBC Red Blood Cell Count 3.58 M/uL (4.33-5.43)
[2023-04-20] MEDS ORDERED: MIDAZOLAM HCL 2 MG/2 ML INJ ONE ×2 (17:10→19:49)
[2023-04-20 17:30] LABS: Bilirubin Direct 0.4 mg/dL (0-0.2); Bilirubin Indirect, Calculated 0.4 mg/dL (0.2-0.8); Bilirubin Total 0.8 mg/dL (0.2-1.0); Magnesium 1.9 mg/dL (1.6-2.4); Potassium 3.6 mEq/L (3.5-5.1); Protein, Total 8.4 g/dL (6.4-8.2); Troponin High Sensitivity 26.2 pg/mL (<58.9)
--- NOTE | 2023-04-20 17:33 | RAD REPORT ---
EXAM DESCRIPTION: RADChest Single View04/20/2023 4:43 pm CLINICAL HISTORY: weakness COMPARISON: Chest Single View dated 10/29/2022; Chest Single View dated 08/12/2021; Chest Single View d ated 11/16/2020; Chest Single View dated 12/25/2018 TECHNIQUE: Portable AP view of the chest. FINDINGS: The lungs are clear. Decreased inspiratory effort somewhat limits evaluation. No pneumoth orax or effusion. The cardiomediastinal contours are unremarkable. Sequelae of median sternotomy aga in seen. IMPRESSION: No acute cardiopulmonary process.
[2023-04-20] MEDS ORDERED: NA CHLORIDE 0.9% 500 ML ONE (17:54)
[2023-04-20 18:29] LABS: Blood Morphology Comment NOT SEEN (NOT SEEN); Platelet Estimate DECR; White Blood Cell Scan OK (OK)
[2023-04-20 18:29] LABS: Barbiturates NEGATIVE (NEGATIVE); Benzodiazepines POSITIVE (NEGATIVE); Cocaine NEGATIVE (NEGATIVE); METHAMPHETAM NEGATIVE (NEGATIVE); Methadone NEGATIVE (NEGATIVE); Opiates NEGATIVE (NEGATIVE); Phencyclidine NEGATIVE (NEGATIVE); THC Cannibis NEGATIVE (NEGATIVE)
--- NOTE | 2023-04-20 18:30 | RAD REPORT ---
EXAM DESCRIPTION: CT - Head Brain Wo Cont - 04/20/2023 5:24 pm CLINICAL HISTORY: WEAKNESS COMPARISON: Facial Bones W/ Mpr dated 07/02/2021; Head Brain Wo Cont dated 11/23/2018 TECHNIQUE: Noncontrast head CT images were obtained without IV contrast. Multiplanar reformats were generated and reviewed. All CT scans are performed using dose optimization technique as appropriate and may include automated exposure control or mA/KV adjustment according to patient size. FINDINGS: No intracranial hemorrhage, mass, or edema. Midline structures are unremarkable. Normal ventricular caliber for age. Calcific focus along the left MCA within the sylvian fissure, new since 2019, suggestive of intracran ial atherosclerotic calcification. Le-white matter differentiation is preserved, without evidence o f acute infarct. No abnormal extra-axial fluid collections. Mastoid air cells and visualized portions of the paranasal sinuses are clear. No acute bony findings. IMPRESSION: No evidence of an acute intracranial process.
[2023-04-20 18:31] LABS: Specific Gravity 1.007 (1.005-1.030); Urine Bacteria None Seen /HPF (<20); Urine Bilirubin NEGATIVE (Negative); Urine Blood Negative (Negative); Urine Clarity Clear (Clear); Urine Color Light-Yellow (Yellow); Urine Glucose NEGATIVE (Negative); Urine Protein NEGATIVE (Negative); Urine RBC <5 /HPF (None Seen); Urine Urobilinogen Normal (Normal)
--- NOTE | 2023-04-20 19:23 | EDPHYS ---
Physician Documentation [facility] Name: Gavin Polo Jr Age: 67 yrs Sex: Male : 1955 Arrival Date: 04/20/2023 Time: 15:09 Bed 17 Private MD: ED Physician Brown Albarran HPI: 04/20 16:25 This 67 yrs old Male presents to ER via Wheelchair with complaints of Weakness. cp 16:25 The patient presents to the emergency department with weakness of the entire body, cp generalized weakness, difficult walking, the patient is generally weak. Onset: The symptoms/episode began/occurred today. 16:25 Associated signs and symptoms: Pertinent negatives: chills, fever, paresthesias, cp syncope. Patient's baseline: Neuro: alert and fully oriented, Motor: no deficits, Ambulation: walks without assistance, Speech: normal. 16:25 Current symptoms: general weakness. Patient admits to daily drinking and reports cp she suspects last drink was earlier today. Historical: - Allergies: 15:46 No Known Allergies; kd3 - PMHx: 15:46 Anxiety; Atrial valve stenosis; barrots; central tremor; etoh abuse; GERD; Hypertension;kd3 - PSHx: 15:46 heart valve replacement; kd3 - Immunization history:: Adult Immunizations up to date. - Social history:: Smoking status: Patient denies any tobacco usage or history of. ROS: 16:30 Constitutional: Negative for body aches, chills, fever, poor PO intake, cp 16:30 Respiratory: Negative for cough, shortness of breath, wheezing, cp 16:30 Abdomen/GI: Negative for abdominal pain, vomiting, diarrhea, constipation, black/tarry stool, rectal bleeding, 16:30 Eyes: Negative for injury, pain, redness, and discharge, cp 16:30 ENT: Negative for drainage from ear(s), ear pain, sore throat, difficulty swallowing, difficulty handling secretions, 16:30 Cardiovascular: Negative for chest pain, edema, palpitations, 16:30 Neuro: Positive for weakness, Negative for altered mental status, headache, syncope, Exam: 16:33 Constitutional: The patient appears in no acute distress, alert, awake, cp non-diaphoretic, non-toxic, well developed, well nourished, overweight 16:33 Head/Face: Normocephalic, atraumatic. cp 16:33 Eyes: Periorbital structures: appear normal, Pupils: equal, round, and reactive to cp light and accomodation, Extraocular movements: intact throughout, Conjunctiva: normal, no exudate, no injection, Sclera: no appreciated abnormality, Lids and lashes: appear normal, bilaterally, 16:33 ENT: External ear(s): are unremarkable, Nose: is normal, Mouth: Lips: moist, Oral mucosa: pink and intact, moist, Posterior pharynx: Airway: no evidence of obstruction, patent, erythema, is not appreciated, exudate, is not appreciated, 16:33 Neck: ROM/movement: is normal, is supple, without pain, no range of motions cp limitations, 16:33 Chest/axilla: Inspection: normal, 16:33 Cardiovascular: Rate: normal, Rhythm: regular, Edema: is not appreciated, JVD: is not appreciated, 16:33 Respiratory: the patient does not display signs of respiratory distress, Respirations: normal, no use of accessory muscles, no retractions, labored breathing, is not present, Breath sounds: are clear throughout, no decreased breath sounds, no stridor, no wheezing, 16:33 Abdomen/GI: Inspection: abdomen appears normal, Palpation: abdomen is soft and non-tender, in all quadrants, 16:33 Neuro: Orientation: to person, place \T\ time. Mentation: able to follow commands, slow to respond, Motor: moves all fours, no focal deficits, Sensation: no obvious gross deficits, 17:01 ECG was reviewed by the Attending Physician. cp Vital Signs: 15:45 Pulse 87; Resp 15; Temp 98.7; Pulse Ox 92% on R/A; Weight 96.16 kg; Height 5 ft. 8 in. kd3 ; Pain 0/10; 15:46 BP 136 / 83; kd3 16:42 BP 151 / 78; Pulse 85; Resp 40; Temp 98.6(O); Pulse Ox 99% on NC; FiO2 2 %; tm6 17:56 BP 144 / 98; Pulse 85; Resp 16; Pulse Ox 98% ; tm6 18:31 BP 155 / 76; Pulse 83; Resp 11; Pulse Ox 99% on NC; FiO2 2 %; tm6 19:56 BP 162 / 72; Pulse 94; Resp 12; Pulse Ox 98% ; vc1 15:45 Body Mass Index 32.23 (96.16 kg, 172.72 cm) kd3 15:45 Pain Scale: Adult kd3 MDM: 16:10 Patient medically screened. cp 19:22 Data reviewed: vital signs, nurses notes, lab test result(s), EKG, radiologic studies, cp CT scan, plain films. 19:22 Consideration of Admission/Observation Escalation of care including cp admission/observation considered. I considered the following discharge prescriptions or medication management in the emergency department Medications were administered in the Emergency Department. See MAR. Independent interpretation of the following test(s) in the Emergency Department EKG: See my EKG interpretation above. Care significantly affected by the following chronic conditions: Hypertension, ETOH use. Counseling: I had a detailed discussion with the patient and/or guardian regarding the historical points, exam findings, and any diagnostic results supporting the discharge/admit diagnosis, lab results, radiology results. ED course: Discussed admission for alcohol withdrawal but patient declines at this time and requests discharge to home. Will return to ED worsening symptoms. 04/20 16:21 Order name: Basic Metabolic Panel; Complete Time: 17:36 cp 04/20 17:36 Interpretation: Normal except: GFR 89. 04/20 16:21 Order name: CBC with Diff; Complete Time: 18:33 04/20 17:30 Interpretation: Normal except: WBC 3.60; RBC 3.58; HGB 13.0; HCT 37.2; MCV 103.8; MCH cp 36.1; PLT 115; RDW 16.6; MPV 6.7; MN% 16.9; NEUT A 1.7. 04/20 16:21 Order name: LFT's; Complete Time: 17:36 04/20 17:37 Interpretation: Normal except: AST 146; ALT 90; BILID 0.4; TP 8.4; GLOB 4.4; A/G 0.9. cp 04/20 16:21 Order name: Magnesium; Complete Time: 17:36 cp 04/20 16:21 Order name: NT PRO-BNP; Complete Time: 17:36 cp 04/20 16:21 Order name: PT-INR; Complete Time: 17:29 cp 04/20 16:21 Order name: Troponin HS; Complete Time: 17:36 cp 04/20 16:21 Order name: Urinalysis W/Microscopic; Complete Time: 18:33 cp 04/20 16:57 Order name: ETOH Level; Complete Time: 17:37 cp 04/20 17:37 Interpretation: Abnormal: ETOH 95. cp 04/20 16:57 Order name: UDS; Complete Time: 18:33 cp 04/20 18:33 Interpretation: Abnormal: BZO POSITIVE. 04/20 18:29 Order name: CBC Smear Scan; Complete Time: 18:33 EDMS 04/20 16:21 Order name: CT Head Brain wo Cont; Complete Time: 18:33 cp 04/20 16:21 Order name: XRAY Chest (1 view); Complete Time: 17:36 cp 04/20 16:21 Order name: Cardiac monitoring; Complete Time: 16:42 04/20 16:21 Order name: EKG - Nurse/Tech; Complete Time: 17:56 04/20 16:21 Order name: IV Saline Lock; Complete Time: 16:52 04/20 16:21 Order name: Labs collected and sent; Complete Time: 16:52 04/20 16:21 Order name: O2 Per Protocol; Complete Time: 16:42 cp 04/20 16:21 Order name: O2 Sat Monitoring; Complete Time: 16:42 04/20 18:52 Order name: Misc. Order: ambulate patient; Complete Time: 18:55 cp EC:01 Rate is 80 beats/min. Rhythm is regular. [place] interval is normal. QRS interval is normal. cp QT interval is normal. T waves are Inverted in lead aVR. Interpreted by me. Reviewed by me. Administered Medications: 16:58 Drug: Midazolam IVP or IV 2 mg IVP once Route: IVP; Site: left hand; tm6 19:56 Follow up: Response: Marked relief of symptoms vc1 17:57 Drug: NS 0.9% IV 500 ml IV at 250 ml/hr continuous Route: IV; Rate: 250 ml/hr; Site: tm6 right antecubital; 19:47 Drug: Midazolam IVP or IV 2 mg IVP once Route: IVP; Site: left hand; vc1 19:55 Follow up: Response: Medication administered at discharge. vc1 19:55 Not Given (already dcdd): folic acid1 mg IVPB once vc1 Disposition: 20:51 I was immediately available on-site in the Emergency Department for consultation in the ms3 care of the patient. Disposition Summary: 04/20/23 19:23 Discharge Ordered Notes: Location: Home cp Problem: new cp Symptoms: have improved cp Condition: Stable cp Diagnosis - Alcohol dependence with withdrawal, unspecified cp - Weakness cp Followup: cp - With: Emergency Department - When: As needed - Reason: Worsening of condition Discharge Instructions: - Discharge Summary Sheet cp - Finding Treatment for Addiction cp - Alcohol Withdrawal Syndrome cp - Alcohol Use Disorder cp - Weakness cp - Alcohol Abuse and Nutrition cp Forms: - Medication Reconciliation Form cp - Thank You Letter cp - Antibiotic Education cp - Prescription Opioid Use cp - Patient Portal Instructions cp - Leadership Thank You Letter cp Prescriptions: - chlordiazepoxide HCl 25 mg Oral capsule - take 1 capsule ORAL route every 6 hours As needed; 20 capsule; Refills: 0, cp Product Selection Permitted Signatures: Dispatcher [employer] EDMS Britton Mendoza PA PA cp Brown Albarran, DO ms3 Rachael Luna RN RN kd3 Gena Arredondo RN RN vc1 Shiv Schmidt RN RN tm6 Corrections: (The following items were deleted from the chart) 18:51 16:30 Abdomen/GI: Negative for abdominal pain, vomiting, diarrhea, constipation, cp cp 04/21 16:08 04/20 16:33 Constitutional: The patient appears in no acute distress, alert, awake, cp non-diaphoretic, non-toxic, well developed, well nourished, cp
--- NOTE | 2023-04-20 19:23 | ER ---
Nurse's Notes [facility] Name: Gavin Polo Jr Age: 67 yrs Sex: Male : 1955 Arrival Date: 04/20/2023 Time: 15:09 Bed 17 Private MD: Diagnosis: Alcohol dependence with withdrawal, unspecified;Weakness Presentation: 04/20 15:45 Coronavirus screen: Vaccine status: Patient reports receiving the 2nd dose of the covid kd3 vaccine. Ebola Screen: No symptoms or risks identified at this time. Initial Sepsis Screen: Does the patient meet any 2 criteria? No. Patient's initial sepsis screen is negative. Does the patient have a suspected source of infection? No. Patient's initial sepsis screen is negative. Risk Assessment: Do you want to hurt yourself or someone else? Patient reports no desire to harm self or others. Onset of symptoms was April 20, 2023. 15:45 Method Of Arrival: Wheelchair kd3 15:45 Acuity: NICK 3 kd3 15:46 Chief complaint: Patient states: I think i am dehydrated, I was here a couple weeks ago kd3 for the same thing. My symptoms of extreme exhaustion and weakness, i can barely walk. I have been urinating. This has been going on for a week or so. Triage Assessment: 15:51 General: Appears ill, Behavior is drowsy, flat. Pain: Denies pain. kd3 Historical: - Allergies: 15:46 No Known Allergies; kd3 - PMHx: 15:46 Anxiety; Atrial valve stenosis; barrots; central tremor; etoh abuse; GERD; Hypertension;kd3 - PSHx: 15:46 heart valve replacement; kd3 - Immunization history:: Adult Immunizations up to date. - Social history:: Smoking status: Patient denies any tobacco usage or history of. Screenin:42 [facility] ED Fall Risk Assessment (Adult) History of falling in the last 3 months, tm6 including since admission No falls in past 3 months (0 pts). Abuse screen: Denies threats or abuse. Denies injuries from another. Nutritional screening: No deficits noted. Tuberculosis screening: No symptoms or risk factors identified. Assessment: 16:45 General: Appears distressed, Behavior is quiet. Pain: Denies pain. Neuro: Level of tm6 Consciousness is awake, obeys commands, Oriented to person, place, time, situation. Cardiovascular: Capillary refill < 3 seconds Patient's skin is warm and dry. Respiratory: Airway is patent Respiratory effort is labored, Respiratory pattern is tachypnea. GI: Abdomen is round. : No signs and/or symptoms were reported regarding the genitourinary system. EENT: No signs and/or symptoms were reported regarding the EENT system. Derm: No signs and/or symptoms reported regarding the dermatologic system. Musculoskeletal: No signs and/or symptoms reported regarding the musculoskeletal system. 17:56 Reassessment: No changes from previously documented assessment. Patient and/or family tm6 updated on plan of care and expected duration. Pain level reassessed. 18:31 Reassessment: Patient appears in no apparent distress at this time. tm6 19:56 Reassessment: Patient and/or family updated on plan of care and expected duration. Pain vc1 level reassessed. Patient states feeling better. Patient states symptoms have improved. Vital Signs: 15:45 Pulse 87; Resp 15; Temp 98.7; Pulse Ox 92% on R/A; Weight 96.16 kg; Height 5 ft. 8 in. kd3 ; Pain 0/10; 15:46 BP 136 / 83; kd3 16:42 BP 151 / 78; Pulse 85; Resp 40; Temp 98.6(O); Pulse Ox 99% on NC; FiO2 2 %; tm6 17:56 BP 144 / 98; Pulse 85; Resp 16; Pulse Ox 98% ; tm6 18:31 BP 155 / 76; Pulse 83; Resp 11; Pulse Ox 99% on NC; FiO2 2 %; tm6 19:56 BP 162 / 72; Pulse 94; Resp 12; Pulse Ox 98% ; vc1 15:45 Body Mass Index 32.23 (96.16 kg, 172.72 cm) kd3 15:45 Pain Scale: Adult kd3 ED Course: 15:10 Patient arrived in ED. rg4 15:46 Triage completed. kd3 15:46 Arm band placed on right wrist. kd3 16:09 Britton Mendoza PA is PHCP. cp 16:09 Brown Albarran DO is Attending Physician. cp 16:34 Shiv Schmidt RN is Primary Nurse. tm6 16:42 Patient has correct armband on for positive identification. Placed in gown. Bed in low tm6 position. Call light in reach. Side rails up X2. Provided Education on: need for IV. Client placed on continuous cardiac and pulse oximetry monitoring. NIBP monitoring applied. environmental monitoring specialist on. 16:45 XRAY Chest (1 view) In Process Unspecified. EDMS 16:47 Missed attempt(s): 20 gauge in right antecubital area. ld1 16:47 Missed attempt(s): 20 gauge in right forearm. ld1 17:26 CT Head Brain wo Cont In Process Unspecified. EDMS 17:56 UDS Sent. tm6 19:57 No provider procedures requiring assistance completed. IV discontinued, intact, vc1 bleeding controlled, No redness/swelling at site. Pressure dressing applied. Administered Medications: 16:58 Drug: Midazolam IVP or IV 2 mg IVP once Route: IVP; Site: left hand; tm6 19:56 Follow up: Response: Marked relief of symptoms vc1 17:57 Drug: NS 0.9% IV 500 ml IV at 250 ml/hr continuous Route: IV; Rate: 250 ml/hr; Site: tm6 right antecubital; 19:47 Drug: Midazolam IVP or IV 2 mg IVP once Route: IVP; Site: left hand; vc1 19:55 Follow up: Response: Medication administered at discharge. vc1 19:55 Not Given (already dcdd): folic acid1 mg IVPB once vc1 Medication: 16:42 VIS not applicable for this client. tm6 Outcome: 19:23 Discharge ordered by . cp 19:57 Discharged to home via wheelchair, with significant other, vc1 19:57 Condition: improved 19:57 Discharge instructions given to patient, significant other, Instructed on discharge instructions, follow up and referral plans. medication usage, Demonstrated understanding of instructions, follow-up care, medications, Prescriptions given X 1, 19:57 Patient left the ED. vc1 Signatures: Dispatcher [employer] EDMS Britton Mendoza PA PA cp Garcia, Rubi rg4 Tammi Albarran RN RN ld1 Rachael Luan RN RN kd3 Gena Arredondo RN RN vc1 Shiv Schmidt RN RN tm6 Corrections: (The following items were deleted from the chart) 15:51 15:46 Chief complaint: Patient states: I think i am dehydrated, I was here a couple kd3 weeks ago for the same thing. My symptoms of extreme exhaustion and weakness, i can barely walk. I have been urinating. kd3
[2023-04-20 20:14] VITALS: TEMP 98.6
[2023-04-20 20:17] VITALS: BP 162/72; O2SAT 98
== END 2023-04-20 19:57 | disposition home or self-care (01) ==
LOC: ER 15:09
DX: F10.239 Alcohol dependence with withdrawal, unspecified (principal); I10 Essential (primary) hypertension; F41.9 Anxiety disorder, unspecified; Z95.2 Presence of prosthetic heart valve
CPT/HCPCS: 85025; 81001; 80048; 36415; 83735; 85610; 80076; 84484; 83880; 80307; 70450; 71045; 96374; 99285; 82077; J2250 ×2; J7040

== ENCOUNTER → 2023-07-01 | Emergency (ER) | payer OTHER ==
[~2023-07-01] MED LIST: DIAZEPAM 10 MG/2 ML INJ SYRINGE ONE; NA CHLORIDE 0.9% 1,000 ML ONE
--- NOTE | 2023-07-01 14:24 | RAD REPORT ---
EXAM DESCRIPTION: RADChest Single View07/01/2023 2:00 pm CLINICAL HISTORY: SOB COMPARISON: Chest Single View dated 04/20/2023; Chest Single View dated 10/29/2022; Chest Single View dated 08/12/2021; Chest Single View dated 11/16/2020 TECHNIQUE: Portable AP view of the chest. FINDINGS: The lungs are clear. Decreased inspiratory effort limits evaluation. No pneumothorax or e ffusion. The cardiomediastinal contours are unchanged, with sequelae of median sternotomy. IMPRESSION: No acute cardiopulmonary process.
[2023-07-01 15:25] LABS: Absolute Lymphocytes (CBC) 0.9 K/uL (0.7-4.9); Hematocrit 36.6 % (39.6-49.0); Lymphocytes % 17.1 % (15.3-44.8); MCV 103.6 fL (80-100); MPV 6.9 fL (7.6-11.3); Platelets 147 thou/uL (152-406); RBC Red Blood Cell Count 3.53 M/uL (4.33-5.43)
[2023-07-01 15:43] LABS: Potassium 3.6 mEq/L (3.5-5.1); Troponin High Sensitivity 31.9 pg/mL (<58.9)
--- NOTE | 2023-07-01 16:04 | ER ---
Nurse's Notes [facility] Name: Gavin Polo Jr Age: 68 yrs Sex: Male : 1955 Arrival Date: 07/01/2023 Time: 13:04 Bed 18 Private MD: Diagnosis: Alcohol abuse;Alcohol abuse counseling and surveillance Presentation: 07/01 13:20 Chief complaint: Generalized weakness and SOB x 1 week, concerned about bloodwork from hb a few days ago that showed an "elevated PSA and low potassium.". Coronavirus screen: At this time, the client does not indicate any symptoms associated with coronavirus-19. Ebola Screen: No symptoms or risks identified at this time. Initial Sepsis Screen: Does the patient meet any 2 criteria? RR > 20 per min. HR > 90 bpm. Yes Does the patient have a suspected source of infection? No. Patient's initial sepsis screen is negative. Risk Assessment: Do you want to hurt yourself or someone else? Patient reports no desire to harm self or others. Onset of symptoms was June 24, 2023. 13:20 Method Of Arrival: Wheelchair hb 13:20 Acuity: NICK 2 hb Triage Assessment: 16:39 General: Appears distressed. General: Behavior is agitated. Respiratory: Onset: The tl4 symptoms/episode began/occurred. Respiratory: Reports shortness of breath the patient has mild shortness of breath. Historical: - Allergies: 13:22 No Known Allergies; hb - Home Meds: 13:23 aspirin 81 mg Oral tablet,chewable [Active]; pantoprazole 40 mg oral tablet, delayed hb release (enteric coated) 2 times per day [Active]; atorvastatin 20 mg oral tablet daily [Active]; metoprolol tartrate 25 mg Oral tablet 2 times per day [Active]; levothyroxine 25 mcg capsule daily [Active]; tamsulosin 0.4 mg oral capsule daily [Active]; mirtazapine 15 mg oral tablet daily [Active]; chlordiazepoxide HCl 25 mg Oral capsule 2 times per day [Active]; 13:26 multivitamin oral tablet daily [Active]; K2 Plus D3 1,000-100 unit-mcg oral tablet hb daily [Active]; magnesium oxide 400 mg magnesium oral tablet daily [Active]; - PMHx: 13:22 Anxiety; Atrial valve stenosis; barrots; central tremor; etoh abuse; GERD; Hypertension;hb - PSHx: 13:22 heart valve replacement; hb - Immunization history:: Adult Immunizations up to date. - Social history:: Smoking status: unknown. Screenin:50 Clinical [place] Withdrawal Assessment for Alcohol, revised ([facility]): tl4 Nausea/Vomitin - No nausea or vomiting Headache: 0 - Not present Paroxysmal Sweats: 0 - No sweats visible Anxiety: 0 - No anxiety, at ease Agitation: 0 - Normal actiivty Tremor: 4 - Moderate when client's hands extended Auditory Disturbances: 0 - Not present Visual Disturbances: 0 - Not present Tactile Disturbances: 0 - None Orientation and Clouding of Sensorium: 0 - Oriented and can do serial additions Total Score: < 10 Very mild withdrawal. 15:00 Clinical [place] Withdrawal Assessment for Alcohol, revised ([facility]): tl4 Nausea/Vomitin - No nausea or vomiting Headache: 0 - Not present Paroxysmal Sweats: 0 - No sweats visible Anxiety: 0 - No anxiety, at ease Agitation: 0 - Normal actiivty Tremor: 4 - Moderate when client's hands extended Auditory Disturbances: 0 - Not present Visual Disturbances: 0 - Not present Tactile Disturbances: 0 - None Orientation and Clouding of Sensorium: 0 - Oriented and can do serial additions Total Score: < 10 Very mild withdrawal. 16:25 [facility] ED Fall Risk Assessment (Adult) History of falling in the last 3 months, tl4 including since admission No falls in past 3 months (0 pts) Confusion or Disorientation No (0 pts) Intoxicated or Sedated No (0 pts) Impaired Gait No (0 pts) Mobility Assist Device Used No (0 pt) Altered Elimination No (0 pt) Score/Fall Risk Level 0 - 2 = Low Risk Oriented to surroundings, Maintained a safe environment, Educated pt \\T\\ family on fall prevention, incl call for assistance when getting out of bed, Assessed \\T\\ reinforced patient's understanding of fall precautions. Abuse screen: Denies threats or abuse. Denies injuries from another. Nutritional screening: No deficits noted. Tuberculosis screening: No symptoms or risk factors identified. 16:27 [facility] [place] Withdrawal Assessment for Alcohol, revised ([facility]): tl4 Nausea/Vomitin - No nausea or vomiting Headache: 0 - Not present Paroxysmal Sweats: 0 - No sweats visible Anxiety: 0 - No anxiety, at ease Agitation: 0 - Normal actiivty Tremor: 0 - No tremor Auditory Disturbances: 0 - Not present Visual Disturbances: 0 - Not present Tactile Disturbances: 0 - None Orientation and Clouding of Sensorium: 0 - Oriented and can do serial additions Total Score: < 10 Very mild withdrawal. Assessment: 14:15 General: Appears distressed, Behavior is agitated. Pain: Denies pain. Neuro: No tl4 deficits noted. Cardiovascular: No deficits noted. Denies chest pain, lightheadedness, palpitations, Rhythm is sinus rhythm. Respiratory: Airway is patent Respiratory effort is even, unlabored, Breath sounds are clear bilaterally. GI: No deficits noted. No signs and/or symptoms were reported involving the gastrointestinal system. : No deficits noted. No signs and/or symptoms were reported regarding the genitourinary system. EENT: No deficits noted. No signs and/or symptoms were reported regarding the EENT system. Derm: No deficits noted. No signs and/or symptoms reported regarding the dermatologic system. Vital Signs: 13:15 BP 164 / 91; Pulse 94; Resp 16; Pulse Ox 95% on R/A; Pain 0/10; tl4 13:20 BP 169 / 93; Pulse 98; Resp 25; Temp 98.3(O); Pulse Ox 97% on R/A; Weight 101.15 kg; hb Height 5 ft. 8 in. ; Pain 0/10; 13:45 BP 134 / 77; Pulse 89; Resp 16; Pulse Ox 93% on R/A; tl4 14:25 BP 159 / 81; Pulse 90; Resp 16; Pulse Ox 95% on R/A; tl4 15:00 BP 169 / 85; Pulse 89; Resp 18; Pulse Ox 95% on R/A; tl4 16:00 BP 169 / 87; Pulse 89; Resp 15; Pulse Ox 95% on R/A; Pain 0/10; tl4 16:00 BP 165 / 88; Pulse 92; Resp 18; Pulse Ox 95% on R/A; Pain 0/10; tl4 16:37 BP 165 / 88; Pulse 92; Resp 16; Pulse Ox 96% on R/A; Pain 0/10; tl4 13:20 Body Mass Index 33.91 (101.15 kg, 172.72 cm) hb 13:15 Pain Scale: Adult tl4 13:20 Pain Scale: Adult hb 16:00 Pain Scale: Adult tl4 16:00 Pain Scale: Adult tl4 16:37 Pain Scale: Adult tl4 ED Course: 13:06 Patient arrived in ED. mg5 13:07 Geovanny Lay MD is Attending Physician. ec2 13:22 Triage completed. hb 13:22 Arm band placed on. hb 13:39 Gopal Tijerina is Primary Nurse. tl4 14:02 XRAY Chest (1 view) In Process Unspecified. EDMS 15:05 Inserted saline lock: 20 gauge in right forearm, using aseptic technique. ,using nj1 aseptic technique. Ultrasound guided. Catheter tip well visualized within vasculature during placement. Blood collected. 16:37 No provider procedures requiring assistance completed. tl4 16:38 Patient has correct armband on for positive identification. Placed in gown. Bed in low tl4 position. Call light in reach. Side rails up X2. Adult w/ patient. Provided Education on: ED process. Client placed on continuous cardiac and pulse oximetry monitoring. NIBP monitoring applied. location manager on. Door closed. Noise minimized. Lights dimmed. Moved to private room. Warm blanket given. 16:38 IV discontinued, intact, bleeding controlled, No redness/swelling at site. Pressure tl4 dressing applied. Administered Medications: 15:31 Drug: Diazepam IVP 10 mg IVP once Route: IVP; Site: right forearm; tl4 15:38 Follow up: Response: Anxiety decreased tl4 15:31 Drug: NS 0.9% IV 1000 ml IV at 1 bolus Per protocol; 1000 mL bolus Route: IV; Rate: 1 tl4 bolus; Site: right forearm; 16:17 Follow up: Response: No adverse reaction; IV Status: Completed infusion; IV Intake: tl4 1000ml Medication: 16:39 VIS not applicable for this client. tl4 Intake: 16:17 IV: 1000ml; Total: 1000ml. tl4 Outcome: 16:03 Discharge ordered by . ec2 16:38 Discharged to home via wheelchair, with family, tl4 16:38 Condition: stable 16:38 Discharge instructions given to patient, family, Instructed on discharge instructions, follow up and referral plans. Demonstrated understanding of instructions, follow-up care, 16:40 Patient left the ED. tl4 Signatures: Dispatcher [employer]askia Dinh, MAURISIO RN Ale Bosch RN RN nj1 [facility] mg5 Geovanny Lay MD MD ec2 Gopal Tijerina tl4 Corrections: (The following items were deleted from the chart) 16:26 13:50 [facility] Withdrawal Assessment for Alcohol, revised ([facility]): tl4 Nausea/Vomitin - No nausea or vomiting Headache: 0 - Not present Paroxysmal Sweats: 0 - No sweats visible Anxiety: 0 - No anxiety, at ease Agitation: 0 - Normal actiivty Tremor: 4 - Moderate when client's hands extended Auditory Disturbances: 0 - Not present Visual Disturbances: 0 - Not present Tactile Disturbances: 0 - None Orientation and Clouding of Sensorium: 0 - Oriented and can do serial additions tl4
--- NOTE | 2023-07-01 16:04 | EDPHYS ---
Physician Documentation [facility] Name: Gavin Polo Jr Age: 68 yrs Sex: Male : 1955 Arrival Date: 07/01/2023 Time: 13:04 Bed 18 Private MD: ED Physician Geovanny Lay HPI: 07/01 13:42 This 68 yrs old Male presents to ER via Wheelchair with complaints of Abnormal Lab ec2 Results, Breathing Difficulty. 13:42 Patient arrives today for initial stated complaint of abnormal labs and breathing ec2 difficulty however patient is actually here for alcohol cessation assistance. Patient reports that he drinks approximately one half a gallon every 2 days. Patient reports his last drink was approximately 18 hours ago. Patient reports that he has tried multiple times to quit however has not been able to. He is on chlordiazepoxide.. Historical: - Allergies: 13: No Known Allergies; hb - Home Meds: 13:23 aspirin 81 mg Oral tablet,chewable [Active]; pantoprazole 40 mg oral tablet, delayed hb release (enteric coated) 2 times per day [Active]; atorvastatin 20 mg oral tablet daily [Active]; metoprolol tartrate 25 mg Oral tablet 2 times per day [Active]; levothyroxine 25 mcg capsule daily [Active]; tamsulosin 0.4 mg oral capsule daily [Active]; mirtazapine 15 mg oral tablet daily [Active]; chlordiazepoxide HCl 25 mg Oral capsule 2 times per day [Active]; 13:26 multivitamin oral tablet daily [Active]; K2 Plus D3 1,000-100 unit-mcg oral tablet hb daily [Active]; magnesium oxide 400 mg magnesium oral tablet daily [Active]; - PMHx: 13:22 Anxiety; Atrial valve stenosis; barrots; central tremor; etoh abuse; GERD; Hypertension;hb - PSHx: 13:22 heart valve replacement; hb - Immunization history:: Adult Immunizations up to date. - Social history:: Smoking status: unknown. ROS: 13:42 Constitutional: as per hpi ec2 Exam: : Constitutional: GEN: NAD Head: atraumatic Eyes: EOMI Ears: External ears are ec2 normal. CV: regular rate LUNGS: no respiratory distress, no wheezes, no rales, no rhonchi ABD: non-distended SKIN: no evidence of rashes MSK: no evidence of trauma NEURO: moves all extremities equally, minimally tremulous Vital Signs: 13:15 BP 164 / 91; Pulse 94; Resp 16; Pulse Ox 95% on R/A; Pain 0/10; tl4 13:20 BP 169 / 93; Pulse 98; Resp 25; Temp 98.3(O); Pulse Ox 97% on R/A; Weight 101.15 kg; hb Height 5 ft. 8 in. ; Pain 0/10; 13:45 BP 134 / 77; Pulse 89; Resp 16; Pulse Ox 93% on R/A; tl4 14:25 BP 159 / 81; Pulse 90; Resp 16; Pulse Ox 95% on R/A; tl4 15:00 BP 169 / 85; Pulse 89; Resp 18; Pulse Ox 95% on R/A; tl4 16:00 BP 169 / 87; Pulse 89; Resp 15; Pulse Ox 95% on R/A; Pain 0/10; tl4 16:00 BP 165 / 88; Pulse 92; Resp 18; Pulse Ox 95% on R/A; Pain 0/10; tl4 16:37 BP 165 / 88; Pulse 92; Resp 16; Pulse Ox 96% on R/A; Pain 0/10; tl4 13:20 Body Mass Index 33.91 (101.15 kg, 172.72 cm) hb 13:15 Pain Scale: Adult tl4 13:20 Pain Scale: Adult hb 16:00 Pain Scale: Adult tl4 16:00 Pain Scale: Adult tl4 16:37 Pain Scale: Adult tl4 MDM: 13:14 Patient medically screened. ec2 13:42 Data reviewed: vital signs. ED course: Patient arrives today for alcohol cessation. ec2 Examination remarkable for well-appearing nontoxic individual was otherwise minimally tremulous. Will obtain lab work, EKG, chest x-ray. Will give the patient Valium.. 14:30 ED course: Chest x-ray shows no acute intrathoracic process. Alcohol level ec2 undetectable. . 15:49 ED course: EKG independently reviewed and interpreted by me, shows normal sinus rhythm, ec2 rate of 89, no acute ST segment elevations, nonconcerning intervals.. 15:55 ED course: Metabolic profile, BNP, troponin, CBC all reassuring. Does have anemia ec2 consistent with iron deficiency. Suspect this is dietary especially in the setting of his substantial alcohol use. . 16:02 ED course: On reassessment patient is well-appearing in no acute distress. I discussed ec2 possible inpatient hospitalization for continued benzodiazepine administration however he does have chlordiazepoxide at home. I will discharge patient home, patient without any alcohol withdrawal seizures, no tongue fasciculations, awake and alert and capable of making decisions. Will discharge home return precautions given.. 07/01 13:26 Order name: Basic Metabolic Panel; Complete Time: 15:55 2 07/01 13:26 Order name: CBC with Diff; Complete Time: 15:35 ec07/01 13:26 Order name: NT PRO-BNP; Complete Time: 15:55 2 07/01 13:26 Order name: Troponin HS; Complete Time: 15:55 07/01 13:29 Order name: Ethanol; Complete Time: 14:30 07/01 13:26 Order name: XRAY Chest (1 view); Complete Time: 14:30 07/01 13:26 Order name: EKG; Complete Time: 13:27 ec2 07/01 13:26 Order name: Cardiac monitoring; Complete Time: 13:40 07/01 13:26 Order name: EKG - Nurse/Tech; Complete Time: 16:07/01 13:26 Order name: IV Saline Lock; Complete Time: 16:07/01 13:26 Order name: Labs collected and sent; Complete Time: 16:27 07/01 13:26 Order name: O2 Per Protocol; Complete Time: 13:40 07/01 13:26 Order name: O2 Sat Monitoring; Complete Time: 13:40 07/01 14:24 Order name: Labs - recollect needed: recollect chemistries/ hemolyzed; Complete Time: eb 15:16 Administered Medications: 15:31 Drug: Diazepam IVP 10 mg IVP once Route: IVP; Site: right forearm; tl4 15:38 Follow up: Response: Anxiety decreased tl4 15:31 Drug: NS 0.9% IV 1000 ml IV at 1 bolus Per protocol; 1000 mL bolus Route: IV; Rate: 1 tl4 bolus; Site: right forearm; 16:17 Follow up: Response: No adverse reaction; IV Status: Completed infusion; IV Intake: tl4 1000ml Disposition Summary: 07/01/23 16:03 Discharge Ordered Notes: Location: Home ec2 Condition: Stable ec2 Diagnosis - Alcohol abuse ec2 - Alcohol abuse counseling and surveillance ec2 Followup: ec2 - With: Private Physician - When: - Reason: Recheck today's complaints Discharge Instructions: - Discharge Summary Sheet ec2 - Alcohol Abuse and Dependence Information, Adult ec2 Forms: - Medication Reconciliation Form ec2 - Thank You Letter ec2 - Antibiotic Education ec2 - Prescription Opioid Use ec2 - Patient Portal Instructions ec2 - Leadership Thank You Letter ec2 Signatures: Dispatcher [employer] Saskia Cardona RN RN Natasha Lee Edwin, MD MD ec2 Gopal Tijerina tl4
[2023-07-01 20:05] VITALS: TEMP 98.3
[2023-07-01 20:21] VITALS: BP 165/88; O2SAT 96
--- NOTE | 2023-07-03 16:56 | EKG ---
Test Date: 2023-07-01 Test Time: 15:36:01 Tool Filer Hand: TL MEASUREMENT RESULTS: Intervals: Rate: 89 ME: 162 QRSD: 88 QT: 358 QTc: 435 [place]: P: 40 ME: 162 QRS: 30 T: 41 INTERPRETIVE STATEMENTS: Normal sinus rhythm Normal ECG Compared to ECG 10/29/2022 14:58:52 Sinus tachycardia no longer present Atrial premature complex(es) no longer present Electronically Signed On 07-03-23 16:52:29 [employer] by Andrés Baptiste
== END ==
LOC: ER 13:04
DX: F10.10 Alcohol abuse, uncomplicated (principal); R53.1 Weakness; R06.02 Shortness of breath; Z71.41 Alcohol abuse counseling and surveillance of alcoholic
CPT/HCPCS: 96361; 93005; 85025; 80048; 36415; 84484; 83880; 71045; 96374; 99285; 82077; J3360; J7030

== ENCOUNTER 2024-01-25 11:16 | Emergency (ER) | payer OTHER ==
[2024-01-25] MEDS ORDERED: ONDANSETRON 4 MG/2 ML VIAL ONE (12:32)
[2024-01-25] MEDS ORDERED: MUPIROCIN 2% OINT 22GM TUBE TOP ONE (12:32)
[2024-01-25] MEDS ORDERED: FENTANYL CITR 100 MCG/2 ML ONE (12:32)
[2024-01-25 12:33] LABS: Absolute Basophils 0.1 K/uL (0-0.5); Absolute Eosinophils 0.4 K/uL (0-0.5); Absolute Lymphocytes (CBC) 1.6 K/uL (0.7-4.9); Absolute Monocytes 0.4 K/uL (0.1-1.3); Absolute Neutrophil 2.1 K/uL (1.8-8.0); Basophils % 1.7 % (0-1.3); Eosinophils % 8.4 % (0-4.4); Hematocrit 28.9 % (39.6-49.0); Hemoglobin 9.8 g/dL (13.6-17.9); Lymphocytes % 34.9 % (15.3-44.8); MCH 37.4 pg (27.0-35.0); MCV 110.1 fL (80-100); MPV 6.5 fL (7.6-11.3); Monocytes % 9.5 % (3.3-12.3); Neutrophils % 45.5 % (41.7-73.7); Nucleated Red Blood Cells % 0.2 % (0-0); Platelets 119 thou/uL (152-406); RBC Red Blood Cell Count 2.62 M/uL (4.33-5.43); Red Cell Distribution Width 18.4 % (12.1-15.2)
[2024-01-25] MEDS ORDERED: NA CHLORIDE 0.9% 1,000 ML ONE (12:33)
[2024-01-25 12:36] LABS: PT Prothrombin Time 12.3 SECONDS (9.4-12.5); Protime INR 1.1
--- NOTE | 2024-01-25 12:54 | RAD REPORT ---
EXAM DESCRIPTION: RAD - Chest Single View - 01/25/2024 12:46 pm CLINICAL HISTORY: DYSPNEA Chest pain. COMPARISON: Chest Single View dated 07/01/2023; Chest Single View dated 04/20/2023; Chest Single View dated 10/29/2022; Chest Single View dated 08/12/2021 FINDINGS: Portable technique limits examination quality. The lungs are grossly clear. The heart is upper limit normal in size. No displaced fractures.[place] my. IMPRESSION: No acute intrathoracic process suspected.
[2024-01-25 13:01] LABS: Anisocytosis 1+; Blood Morphology Comment NOTED (NOT SEEN); Macrocytosis 1+; Platelet Estimate DECR; White Blood Cell Scan OK (OK)
[2024-01-25 13:02] LABS: Albumin 3.7 g/dL (3.4-5.0); Anion Gap 9.9 mEq/L (5.0-15.0); Bilirubin Direct 0.4 mg/dL (0-0.2); Bilirubin Indirect, Calculated 0.4 mg/dL (0.2-0.8); Bilirubin Total 0.8 mg/dL (0.2-1.0); Globulin 3.7 g/dL (2.3-3.5); Magnesium 1.2 mg/dL (1.6-2.4); Potassium 3.9 mEq/L (3.5-5.1); Protein, Total 7.4 g/dL (6.4-8.2); Troponin High Sensitivity 21.3 pg/mL (<58.9)
[2024-01-25 14:39] LABS: Specific Gravity 1.007 (1.005-1.030); Sqamous Epithelial None Seen /HPF (None Seen); Urine Bacteria <20 /HPF (<20); Urine Bilirubin NEGATIVE (Negative); Urine Blood Negative (Negative); Urine Clarity Clear (Clear); Urine Color Colorless (Yellow); Urine Culture Reflex Order NOT NEEDED; Urine Glucose NEGATIVE (Negative); Urine Ketones NEGATIVE (Negative); Urine Microscopic Reflex YN ORDER UMIC; Urine Mucus Slight /HPF (None Seen); Urine Nitrite NEGATIVE (Negative); Urine Protein NEGATIVE (Negative); Urine RBC <5 /HPF (None Seen); Urine Urobilinogen Normal (Normal); Urine WBC <5 /HPF (<5); Urine pH 5.5 (5.0-7.0)
[2024-01-25] MEDS ORDERED: MAGNESIUM SULFATE 1 gm IVPB 1 GM/100 ML BAG IV ONE (15:03)
--- NOTE | 2024-01-25 15:39 | RAD REPORT ---
EXAM DESCRIPTION: US - Extrem Venous W Compress José - 01/25/2024 3:33 pm CLINICAL HISTORY: Pain;Swelling Bilateral leg edema and swelling. COMPARISON: No comparisons TECHNIQUE: Real-time sonographic interrogation of the left and right lower extremity deep venous sys tems was performed. FINDINGS: Normal compressibility, flow augmentation, phasic flow and spontaneous flow is identified in both the left and right lower extremity deep venous systems. IMPRESSION: No sonographic evidence of left or right lower extremity deep venous thrombosis.
[2024-01-25] MEDS ORDERED: SMZ./TMP. 800/160 MG TABLET ONE (15:40)
[2024-01-25] MEDS ORDERED: DOXYCYCLINE 100 MG CAP PO ONE (15:40)
--- NOTE | 2024-01-25 15:44 | ER ---
Nurse's Notes [facility] Name: Gavin Polo Jr Age: 68 yrs Sex: Male : 1955 Arrival Date: 01/25/2024 Time: 11:16 Bed 18 Private MD: Diagnosis: Edema, unspecified;Cellulitis and acute lymphangitis of other parts of limb;Impetigo;Hypomagnesemia Presentation: 01/24 11:32 Chief complaint: Patient states: went to the accounts payable associate for a skin issue on right iw leg, and then an hour ago three toes on left foot were hurting so bad I couldn't walk without extreme pain. 11:32 Method Of Arrival: Wheelchair iw 11:32 Acuity: NICK 3 iw 11:34 Coronavirus screen: At this time, the client does not indicate any symptoms associated iw with coronavirus-19. Ebola Screen: No symptoms or risks identified at this time. 11:34 Initial Sepsis Screen: Does the patient meet any 2 criteria? No. Patient's initial iw sepsis screen is negative. Does the patient have a suspected source of infection? No. Patient's initial sepsis screen is negative. Risk Assessment: Do you want to hurt yourself or someone else? Patient reports no desire to harm self or others. Onset of symptoms was January 25, 2024. Historical: - Allergies: 11:35 No Known Allergies; iw - PMHx: 11:35 Anxiety; Atrial valve stenosis; barrots; central tremor; etoh abuse; GERD; Hypertension;iw - PSHx: 11:35 heart valve replacement; iw - Immunization history:: Adult Immunizations Client reports receiving the 2nd dose of the Covid vaccine, Flu vaccine is not up to date. - Infectious Disease History:: Denies. - Social history:: Smoking status: Patient denies any tobacco usage or history of. Patient uses alcohol, on a daily basis. liquor . - Family history:: not pertinent. Screenin:43 [facility] ED Fall Risk Assessment (Adult) History of falling in the last 3 months, ar6 including since admission No falls in past 3 months (0 pts) Confusion or Disorientation No (0 pts) Intoxicated or Sedated No (0 pts) Impaired Gait Yes (1 pt) Mobility Assist Device Used Yes (1 pt) Altered Elimination No (0 pt) Score/Fall Risk Level 0 - 2 = Low Risk Oriented to surroundings, Maintained a safe environment, Educated pt \\T\\ family on fall prevention, incl call for assistance when getting out of bed, Assessed \\T\\ reinforced patient's understanding of fall precautions, Hourly rounding (assess needs \\T\\ fall precautionary measures) done, Used ambulatory aids as needed (educated on \\T\\ assisted with), Used gait belt as appropriate. Abuse screen: Denies threats or abuse. Denies injuries from another. Nutritional screening: No deficits noted. Tuberculosis screening: No symptoms or risk factors identified. Assessment: 11:43 General: Appears in no apparent distress. Behavior is calm, cooperative, appropriate ar6 for age. Pain: Complains of pain in left leg Pain does not radiate. Pain currently is 10 out of 10 on a pain scale. Quality of pain is described as burning, sharp, Pain began gradually, Is continuous, Alleviated by rest, Aggravated by weight bearing, Also complains of pt reports, "It's hard to walk. I just went to the accounts payable associate yesterday and am getting treatment for my right foot.". Neuro: Level of Consciousness is awake, alert, obeys commands, Oriented to person, place, time, situation, Gait is shuffling. Cardiovascular: Capillary refill < 3 seconds fingers. Respiratory: Airway is patent. GI: Abdomen is round non-distended, Bowel sounds present X 4 quads. : No signs and/or symptoms were reported regarding the genitourinary system. EENT: No signs and/or symptoms were reported regarding the EENT system. Derm: Skin has blisters on to bilateral lower extremities (feet) Skin is dry, Skin is pink, warm \\T\\ dry. BLE with redness, blisters Reports increased pain peeling. Musculoskeletal: Swelling present in right leg and left leg. 13:47 Reassessment: Patient appears in no apparent distress at this time. No changes from ar6 previously documented assessment. Patient and/or family updated on plan of care and expected duration. Pain level reassessed. 15:37 Reassessment: No changes from previously documented assessment. Patient and/or family mb9 updated on plan of care and expected duration. Pain level reassessed. Patient is alert, oriented x 3, equal unlabored respirations, skin warm/dry/pink. 15:45 Reassessment: D/C pending completion of IV medication. mb9 Vital Signs: 11:32 BP 147 / 66; Pulse 82; Resp 16; Temp 97.8(O); Pulse Ox 95% on R/A; Weight 101.15 kg; iw Height 5 ft. 8 in. ; Pain 0/10; 11:43 BP 157 / 82; Pulse 88; Resp 18; Pulse Ox 98% on R/A; ar6 13:42 BP 141 / 77; Pulse 72; Resp 16; Pulse Ox 100% on NC; ar6 16:15 BP 138 / 78; Pulse 70; Resp 18; Pulse Ox 100% on R/A; mb9 11:32 Body Mass Index 33.91 (101.15 kg, 172.72 cm) iw 11:32 Pain Scale: Adult iw ED Course: 11:26 Patient arrived in ED. ra3 11:34 Triage completed. iw 11:35 Britton Laurent MD is Attending Physician. freedom 11:39 Corie Reyna, RN is Primary Nurse. ar6 11:43 No apparent distress. ar6 11:43 Patient has correct armband on for positive identification. Bed in low position. Call ar6 light in reach. Side rails up X2. Pulse ox on. NIBP on. Door closed. Noise minimized. Visitors limited. Lights dimmed. Moved to private room. Verbal reassurance given. Head of bed elevated. 12:29 Basic Metabolic Panel Sent. ar6 12:30 CBC with Diff Sent. ar6 12:30 LFT's Sent. ar6 12:30 Magnesium Sent. ar6 12:30 NT PRO-BNP Sent. ar6 12:30 PT-INR Sent. ar6 12:30 Troponin HS Sent. ar6 12:48 XRAY Chest (1 view) In Process Unspecified. EDMS 12:49 EKG done, by ED staff, reviewed by Britton Laurent MD. mb9 15:35 US Extremity Venous W Compression José In Process Unspecified. EDMS 16:15 No provider procedures requiring assistance completed. mb9 16:28 IV discontinued, intact, bleeding controlled, No redness/swelling at site. Pressure mb9 dressing applied. Administered Medications: 12:50 Drug: Ondansetron IVP 4 mg IVP once; over 2 minutes Route: IVP; Site: left antecubital; ar6 13:14 Follow up: Response: No adverse reaction ar6 12:51 Drug: Mupirocin Topical Ointment 2 % 1 application Topical once Route: Topical; Site: ar6 wound; 16:17 Follow up: Response: No adverse reaction mb9 12:51 Drug: NS 0.9% IV 1000 ml IV at 125 ml/hr continuous Route: IV; Rate: 125 ml/hr; Site: ar6 left antecubital; 16:17 Follow up: Response: No adverse reaction; IV Status: Completed infusion mb9 12:51 Drug: fentaNYL (PF) IVP 25 mcg IVP once Route: IVP; Site: left antecubital; ar6 13:14 Follow up: Response: No adverse reaction; Pain is decreased ar6 12:51 Drug: fentaNYL (PF) IVP 25 mcg IVP once Route: IVP; Site: left antecubital; ar6 13:14 Follow up: Response: No adverse reaction; Pain is decreased ar6 15:10 Drug: Magnesium Sulfate IVPB 1 grams IVPB once over 1 hrs Route: IVPB; Infused Over: 1 mb9 hrs; Site: left antecubital; 16:20 Follow up: Response: No adverse reaction; IV Status: Completed infusion mb9 15:44 Drug: Doxycycline PO 200 mg PO once Route: PO; mb9 16:17 Follow up: Response: No adverse reaction mb9 15:44 Drug: Trimethoprim-Sulfamethoxazole PO (160 mg-800 mg (DS) 1 tablet PO once Route: PO; mb9 16:16 Follow up: Response: No adverse reaction mb9 Medication: 16:28 VIS not applicable for this client. mb9 Outcome: 15:44 Discharge ordered by MD. loja 16:28 Discharged to home via wheelchair, mb9 16:28 Condition: stable 16:28 Instructed on discharge instructions, follow up and referral plans. Demonstrated understanding of instructions, follow-up care, medications, wound care, Prescriptions given X 4, 16:28 Patient left the ED. mb9 Signatures: Dispatcher [employer] EDMS Britton Laurent MD MD cha Williams, Irene, RN RN iw Wilkerson, Mary Beth, RN RN mb9 Malu Ybarra ra3 Corie Reyna RN RN ar6 Corrections: (The following items were deleted from the chart) 11:36 11:32 BP 147 / 66; Pulse 82bpm; Resp 16bpm; Pulse Ox 95% RA; Temp 97.8F Oral; iw iw
--- NOTE | 2024-01-25 15:44 | EDPHYS ---
Physician Documentation [facility] Name: Gavin Polo Jr Age: 68 yrs Sex: Male : 1955 Arrival Date: 01/25/2024 Time: 11:16 Bed 18 Private MD: ED Physician Britton Laurent HPI: 01/24 15:27 This 68 yrs old Male presents to ER via Wheelchair with complaints of Foot freedom Pain. 15:27 The patient presents with decreased range of motion, pain, that is acute. The freedom complaints affect the left foot, right foot. Context: The problem was sustained at home, resulted from an unknown cause, the patient can fully bear weight. Associated signs and symptoms: Pertinent positives: calf tenderness, swelling, tingling. Severity of symptoms: At their worst the symptoms were mild, in the emergency department the symptoms are unchanged. The patient has experienced similar episodes in the past, multiple times. Historical: - Allergies: 11:35 No Known Allergies; iw - PMHx: 11:35 Anxiety; Atrial valve stenosis; barrots; central tremor; etoh abuse; GERD; Hypertension;iw - PSHx: 11:35 heart valve replacement; iw - Immunization history:: Adult Immunizations Client reports receiving the 2nd dose of the Covid vaccine, Flu vaccine is not up to date. - Infectious Disease History:: Denies. - Social history:: Smoking status: Patient denies any tobacco usage or history of. Patient uses alcohol, on a daily basis. liquor . - Family history:: not pertinent. ROS: 15:27 Constitutional: Negative for fever, chills, and weight loss, Eyes: Negative for injury, freedom pain, redness, and discharge, ENT: Negative for injury, pain, and discharge, Neck: Negative for injury, pain, and swelling, Cardiovascular: Negative for chest pain, palpitations, and edema, Respiratory: Negative for shortness of breath, cough, wheezing, and pleuritic chest pain, Abdomen/GI: Negative for abdominal pain, nausea, vomiting, diarrhea, and constipation, Back: Negative for injury and pain, : Negative for injury, bleeding, discharge, and swelling, Neuro: Negative for headache, weakness, numbness, tingling, and seizure, Psych: Negative for depression, anxiety, suicide ideation, homicidal ideation, and hallucinations, Allergy/Immunology: Negative for hives, rash, and allergies, Endocrine: Negative for neck swelling, polydipsia, polyuria, polyphagia, and marked weight changes, Hematologic/Lymphatic: Negative for swollen nodes, abnormal bleeding, and unusual bruising, 15:27 MS/extremity: Positive for decreased range of motion, pain, swelling, tenderness, Exam: 15:27 Constitutional: This is a well developed, well nourished patient who is awake, alert, freedom and in no acute distress. Head/Face: Normocephalic, atraumatic. Eyes: Pupils equal round and reactive to light, extra-ocular motions intact. Lids and lashes normal. Conjunctiva and sclera are non-icteric and not injected. Cornea within normal limits. Periorbital areas with no swelling, redness, or edema. ENT: Nares patent. No nasal discharge, no septal abnormalities noted. Tympanic membranes are normal and external auditory canals are clear. Oropharynx with no redness, swelling, or masses, exudates, or evidence of obstruction, uvula midline. Mucous membranes moist. Neck: Trachea midline, no thyromegaly or masses palpated, and no cervical lymphadenopathy. Supple, full range of motion without nuchal rigidity, or vertebral point tenderness. No Meningismus. Chest/axilla: Normal chest wall appearance and motion. Nontender with no deformity. No lesions are appreciated. Cardiovascular: Regular rate and rhythm with a normal S1 and S2. No gallops, murmurs, or rubs. Normal PMI, no JVD. No pulse deficits. Respiratory: Lungs have equal breath sounds bilaterally, clear to auscultation and percussion. No rales, rhonchi or wheezes noted. No increased work of breathing, no retractions or nasal flaring. Abdomen/GI: Soft, non-tender, with normal bowel sounds. No distension or tympany. No guarding or rebound. No evidence of tenderness throughout. Back: No spinal tenderness. No costovertebral tenderness. Full range of motion. Male : Normal genitalia with no discharge or lesions. Skin: Warm, dry with normal turgor. Normal color with no rashes, no lesions, and no evidence of cellulitis. Neuro: Awake and alert, GCS 15, oriented to person, place, time, and situation. Cranial nerves II-XII grossly intact. Motor strength 5/5 in all extremities. Sensory grossly intact. Cerebellar exam normal. Normal gait. Psych: Awake, alert, with orientation to person, place and time. Behavior, mood, and affect are within normal limits. 15:27 ECG was reviewed by the Attending Physician. 15:27 Musculoskeletal/extremity: Extremities: grossly normal except: erythema, pain, rash, swelling, tenderness, ROM: intact in all extremities, full active range of motion, full passive range of motion, Circulation is intact in all extremities. Compartment Syndrome exam of affected extremity: is normal. DVT Exam: no pain, negative Homans' sign noted on exam, no appreciated bluish discoloration, no erythema, no increased warmth, swelling, tenderness, Vital Signs: 11:32 BP 147 / 66; Pulse 82; Resp 16; Temp 97.8(O); Pulse Ox 95% on R/A; Weight 101.15 kg; iw Height 5 ft. 8 in. ; Pain 0/10; 11:43 BP 157 / 82; Pulse 88; Resp 18; Pulse Ox 98% on R/A; ar6 13:42 BP 141 / 77; Pulse 72; Resp 16; Pulse Ox 100% on NC; ar6 16:15 BP 138 / 78; Pulse 70; Resp 18; Pulse Ox 100% on R/A; mb9 11:32 Body Mass Index 33.91 (101.15 kg, 172.72 cm) iw 11:32 Pain Scale: Adult iw MDM: 11:35 Patient medically screened. [facility] 15:41 Differential diagnosis: arthritis, gout, cellulitis. Data reviewed: vital signs, nurses [facility] notes, lab test result(s), EKG, radiologic studies, doppler, plain films. Consideration of Admission/Observation Escalation of care including admission/observation considered. I considered the following discharge prescriptions or medication management in the emergency department Medications were administered in the Emergency Department. See MAR. Independent interpretation of the following test(s) in the Emergency Department EKG: See my EKG interpretation above Radiology Department Ultrasound: My interpretation is VENOUS DOPPLER. Test considered but Not performed: Ultrasound NO ARTERIAL DOPPLER. Care significantly affected by the following chronic conditions: Hypertension, AV STENOSIS, ANXIETY, ALCOHOL ABSUSE, CENTRAL TREMOR, GERD. 01/24 12:14 Order name: Basic Metabolic Panel; Complete Time: 15:00 [facility] 01/24 12:14 Order name: CBC with Diff; Complete Time: 15:00 [facility] 01/24 12:14 Order name: LFT's; Complete Time: 15:00 [facility] 01/24 12:14 Order name: Magnesium; Complete Time: 15:00 [facility] 01/24 12:14 Order name: NT PRO-BNP; Complete Time: 15:00 [facility] 01/24 12:14 Order name: PT-INR; Complete Time: 15:00 [facility] 01/24 12:14 Order name: Troponin HS; Complete Time: 15:00 [facility] 01/24 12:14 Order name: Urinalysis w/ reflexes; Complete Time: 15:00 [facility] 01/24 12:36 Order name: CBC Smear Scan; Complete Time: 15:00 EDMS 01/24 12:14 Order name: XRAY Chest (1 view); Complete Time: 15:00 [facility] 01/24 15:01 Order name: US Extremity Venous W Compression José; Complete Time: 15:44 [facility] 01/24 12:14 Order name: EKG; Complete Time: 12:14 [facility] 01/24 12:14 Order name: Cardiac monitoring; Complete Time: 12:29 [facility] 01/24 12:14 Order name: EKG - Nurse/Tech; Complete Time: 12:49 [facility] 01/24 12:14 Order name: IV Saline Lock; Complete Time: 12:30 [facility] 01/24 12:14 Order name: Labs collected and sent; Complete Time: 12:30 [facility] 01/24 12:14 Order name: O2 Per Protocol; Complete Time: 12:29 [facility] 01/24 12:14 Order name: O2 Sat Monitoring; Complete Time: 12:29 [facility] 01/24 16:07 Order name: Wound dressing; Complete Time: 16:16 [facility] EC:27 Rate is 77 beats/min. Rhythm is regular. QRS [place] is Normal. [place] interval is normal. QRS freedom interval is normal. QT interval is normal. No Q waves. T waves are Normal. No ST changes noted. Clinical impression: NSR w/ Non-specific ST/T Changes and No evidence of ischemia. Interpreted by me. Reviewed by me. Administered Medications: 12:50 Drug: Ondansetron IVP 4 mg IVP once; over 2 minutes Route: IVP; Site: left antecubital; ar6 13:14 Follow up: Response: No adverse reaction ar6 12:51 Drug: Mupirocin Topical Ointment 2 % 1 application Topical once Route: Topical; Site: ar6 wound; 16:17 Follow up: Response: No adverse reaction mb9 12:51 Drug: NS 0.9% IV 1000 ml IV at 125 ml/hr continuous Route: IV; Rate: 125 ml/hr; Site: ar6 left antecubital; 16:17 Follow up: Response: No adverse reaction; IV Status: Completed infusion mb9 12:51 Drug: fentaNYL (PF) IVP 25 mcg IVP once Route: IVP; Site: left antecubital; ar6 13:14 Follow up: Response: No adverse reaction; Pain is decreased ar6 12:51 Drug: fentaNYL (PF) IVP 25 mcg IVP once Route: IVP; Site: left antecubital; ar6 13:14 Follow up: Response: No adverse reaction; Pain is decreased ar6 15:10 Drug: Magnesium Sulfate IVPB 1 grams IVPB once over 1 hrs Route: IVPB; Infused Over: 1 mb9 hrs; Site: left antecubital; 16:20 Follow up: Response: No adverse reaction; IV Status: Completed infusion mb9 15:44 Drug: Doxycycline PO 200 mg PO once Route: PO; mb9 16:17 Follow up: Response: No adverse reaction mb9 15:44 Drug: Trimethoprim-Sulfamethoxazole PO (160 mg-800 mg (DS) 1 tablet PO once Route: PO; mb9 16:16 Follow up: Response: No adverse reaction mb9 Disposition Summary: 01/25/24 15:44 Discharge Ordered Notes: Location: Home freedom Problem: new freedom Symptoms: have improved freedom Condition: Stable freedom Diagnosis - Edema, unspecified freedom - Cellulitis and acute lymphangitis of other parts of limb freedom - Impetigo freedom - Hypomagnesemia rfeedom Followup: freedom - With: Private Physician - When: 2 - 3 days - Reason: Recheck today's complaints, Continuance of care, Re-evaluation by your physician Discharge Instructions: - Discharge Summary Sheet freedom - Cellulitis, Adult freedom - Edema freedom - Hypomagnesemia freedom - Cellulitis, Adult, [id number] freedom - Peripheral Edema freedom Forms: - Medication Reconciliation Form freedom - Antibiotic Education freedom - Prescription Opioid Use freedom - Patient Portal Instructions freedom - Leadership Thank You Letter freedom Prescriptions: - Centany 2 % Topical ointment - apply 1 application TOPICAL route 3 times per day; 45 gram tube; Refills: 0, freedom Product Selection Permitted - MagOx 400 mg (241.3 mg magnesium) Oral tablet - take 1 tablet ORAL route 2 times per day; 30 tablet; Refills: 0, Product [facility] Selection Permitted - Doxycycline Hyclate 100 mg Oral Tablet - take 1 tablet ORAL route every 12 hours; 20 tablet; Refills: 0, Product [facility] Selection Permitted - Bactrim DS 800-160 mg Oral Tablet - take 1 tablet ORAL route every 12 hours for 10 days; 20 tablet; Refills: 0, [facility] Product Selection Permitted Signatures: Dispatcher [employer] Britton Winslow, Melanie Mace MD, cha RN Karen Zamora RN RN mb9 Corie Reyna RN RN ar6
[2024-01-25 16:35] VITALS: TEMP 97.8
[2024-01-25 16:39] VITALS: O2SAT 100
[2024-01-25 16:41] VITALS: BP 138/78
--- NOTE | 2024-01-30 18:04 | EKG ---
Test Date: 2024-01-25 Test Time: 12:46:11 Account Development Manager: MB MEASUREMENT RESULTS: Intervals: Rate: 77 UT: 186 QRSD: 92 QT: 374 QTc: 423 [place]: P: 50 UT: 186 QRS: 37 T: 51 INTERPRETIVE STATEMENTS: Normal sinus rhythm Normal ECG Compared to ECG 07/01/2023 15:36:01 No significant changes Electronically Signed On 01-30-24 17:52:41 CDT by Shviam Nolasco
== END 2024-01-25 16:28 | disposition home or self-care (01) ==
LOC: ER 11:16
DX: L03.119 Cellulitis of unspecified part of limb (principal); L03.129 Acute lymphangitis of unspecified part of limb; R60.9 Edema, unspecified; L01.00 Impetigo, unspecified; E83.42 Hypomagnesemia; I10 Essential (primary) hypertension; Z95.2 Presence of prosthetic heart valve
CPT/HCPCS: 96365; 96361; 93005; 85025; 81001; 80048; 36415; 83735; 85610; 80076; 84484; 83880; 71045; 93970; 96375; 99284; J3475; J3010; J2405; J7030

== ENCOUNTER 2024-03-15 03:03 | Emergency (ER) | payer OTHER ==
[2024-03-15] MEDS ORDERED: THIAMINE 200 MG/2 ML INJ ONE (04:08)
[2024-03-15] MEDS ORDERED: MORPHINE 2 MG/ML SYR ONE (04:08)
[2024-03-15] MEDS ORDERED: NA CHLORIDE 0.9% 1,000 ML ONE (04:09)
[2024-03-15 05:33] LABS: Protime INR 1.17
[2024-03-15 05:34] LABS: Absolute Basophils 0.1 K/uL (0-0.5); Absolute Eosinophils 0.1 K/uL (0-0.5); Absolute Lymphocytes (CBC) 1.2 K/uL (0.7-4.9); Absolute Monocytes 0.5 K/uL (0.1-1.3); Absolute Neutrophil 5.5 K/uL (1.8-8.0); Basophils % 1.1 % (0-1.3); Eosinophils % 1.7 % (0-4.4); Hematocrit 30.9 % (39.6-49.0); Hemoglobin 11.2 g/dL (13.6-17.9); Lymphocytes % 16.5 % (15.3-44.8); MCH 39.9 pg (27.0-35.0); MCHC 36.2 g/dL (32.0-36.0); Monocytes % 7.1 % (3.3-12.3); Neutrophils % 73.6 % (41.7-73.7); Nucleated Red Blood Cells % 0.2 % (0-0); Platelets 161 thou/uL (152-406); RBC Red Blood Cell Count 2.81 M/uL (4.33-5.43); Red Cell Distribution Width 17.4 % (12.1-15.2)
[2024-03-15 06:00] LABS: Albumin/Globulin Ratio 1.1 (1.1-1.8); Anion Gap 9.1 mEq/L (5.0-15.0); Bilirubin Direct 0.5 mg/dL (0-0.2); Bilirubin Indirect, Calculated 0.3 mg/dL (0.2-0.8); Bilirubin Total 0.8 mg/dL (0.2-1.0); Globulin 3.8 g/dL (2.3-3.5); Potassium 4.1 mEq/L (3.5-5.1); Protein, Total 7.8 g/dL (6.4-8.2); Troponin High Sensitivity 18.7 pg/mL (<58.9)
[2024-03-15 06:25] LABS: Blood Morphology Comment NOTED (NOT SEEN); Platelet Estimate ADEQ; White Blood Cell Scan OK (OK)
[2024-03-15 06:26] LABS: Macrocytosis 1+
--- NOTE | 2024-03-15 06:50 | ER ---
Nurse's Notes [facility] Name: Gavin Polo Jr Age: 68 yrs Sex: Male : 1955 Arrival Date: 03/15/2024 Time: 03:03 Bed 17 Private MD: Diagnosis: Acute left chest wall pain, fractures left posterior rib 5 through 8. ;Alcohol abuse with intoxication Presentation: 03/15 03:09 Chief complaint: EMS states: PT BROUGHT IN VIA EMS FROM HOME C/O RIB PAIN. PT STATES dd2 FELL X1 WEEK AGO AND WAS TOLD RIBS 2-5 ARE BROKE AND CONTINUES TO HAVE PAIN. Coronavirus screen: At this time, the client does not indicate any symptoms associated with coronavirus-19. Ebola Screen: No symptoms or risks identified at this time. Initial Sepsis Screen: Does the patient meet any 2 criteria? No. Patient's initial sepsis screen is negative. Does the patient have a suspected source of infection? No. Patient's initial sepsis screen is negative. Risk Assessment: Do you want to hurt yourself or someone else? Patient reports no desire to harm self or others. Onset of symptoms is unknown. 03:09 Method Of Arrival: EMS: [facility] dd2 03:09 Acuity: NICK 3 dd2 Triage Assessment: 03:12 General: Appears uncomfortable, Behavior is agitated. Pain: Complains of pain in left dd2 lateral anterior chest and left breast Pain currently is 10 out of 10 on a pain scale. EENT: No signs and/or symptoms were reported regarding the EENT system. Neuro: Level of Consciousness is awake, alert, obeys commands, Oriented to person, place, time, situation, Appropriate for age. Cardiovascular: Reports chest pain, PAIN TO RIBS 2-5 Patient's skin is warm and dry. Respiratory: Airway is patent Respiratory effort is even, unlabored, Respiratory pattern is regular, symmetrical. GI: No deficits noted. No signs and/or symptoms were reported involving the gastrointestinal system. Abdomen is round Abd is soft and non tender X 4 quads. : No deficits noted. No signs and/or symptoms were reported regarding the genitourinary system. Derm: No deficits noted. No signs and/or symptoms reported regarding the dermatologic system. Skin is intact. Musculoskeletal: Tenderness present in left lateral anterior chest Reports pain in left lateral anterior chest. Historical: - Allergies: 03:12 No Known Allergies; dd2 - PMHx: 03:12 Anxiety; Atrial valve stenosis; Elizondo's Esophagus; central tremor; etoh abuse; GERD; dd2 Hypertension; - PSHx: 03:12 heart valve replacement; dd2 - Immunization history:: Adult Immunizations unknown. - Infectious Disease History:: Denies. - Social history:: Smoking status: Patient denies any tobacco usage or history of. - Family history:: not pertinent. Screenin:18 [facility] ED Fall Risk Assessment (Adult) History of falling in the last 3 months, dd2 including since admission Yes- single mechanical fall (1 pt) Confusion or Disorientation No (0 pts) Intoxicated or Sedated Yes (3 pts) Impaired Gait No (0 pts) Mobility Assist Device Used No (0 pt) Altered Elimination No (0 pt) Score/Fall Risk Level 3 or more points = High Risk Oriented to surroundings, Maintained a safe environment, Educated pt \T\ family on fall prevention, incl call for assistance when getting out of bed, Assessed \T\ reinforced patient's understanding of fall precautions, Hourly rounding (assess needs \T\ fall precautionary measures) done, Remained with patient while ambulating. Abuse screen: Denies threats or abuse. Nutritional screening: No deficits noted. Tuberculosis screening: No symptoms or risk factors identified. Assessment: 03:18 Reassessment: SEE TRIAGE ASSESSEMENT FOR FUL ASSESSMENT. dd2 Vital Signs: 03:09 BP 150 / 94; Pulse 96; Resp 17; Temp 98.4; Pulse Ox 98% ; Weight 96.16 kg; Pain 10/10; dd2 03:18 BP 149 / 72; Pulse 75; Resp 16; Pulse Ox 98% ; dd2 05:34 BP 141 / 70; Pulse 82; Resp 16; Pulse Ox 97% ; dd2 06:59 BP 152 / 78; Pulse 84; Resp 16; Temp 98.3; Pulse Ox 97% ; dd2 03:09 Pain Scale: Adult dd2 [place] Coma Score: 03:18 Eye Response: spontaneous(4). Motor Response: obeys commands(6). Verbal Response: dd2 oriented(5). Total: 15. 03:41 Eye Response: spontaneous(4). Motor Response: obeys commands(6). Verbal Response: sp4 oriented(5). Total: 15. ED Course: 03:07 Patient arrived in ED. dd2 03:09 VIDAL CORREA, RN is Primary Nurse. dd2 03:12 Triage completed. dd2 03:12 Arm band placed on right wrist. Patient placed in an exam room, on a stretcher, on dd2 hardboard grinder, on pulse oximetry. EKG completed in triage. Results shown to MD. 03:18 Patient has correct armband on for positive identification. Bed in low position. Call dd2 light in reach. Side rails up X2. 03:18 No provider procedures requiring assistance completed. dd2 03:31 Cornell Carbajal MD is Attending Physician. sp4 04:18 Inserted saline lock: 20 gauge in right antecubital area, using aseptic technique. dd2 Flushed with 10 mL NS. 04:25 EKG done, by ED staff, reviewed by Cornell Carbajal MD. dd2 05:23 Inserted saline lock: 22 gauge in left antecubital area, using aseptic technique. Blood vc1 collected. Flushed with 10 mL NS. 05:23 Basic Metabolic Panel Sent. vc1 05:23 CBC with Diff Sent. vc1 05:23 LFT's Sent. vc1 05:23 NT PRO-BNP Sent. vc1 05:23 PT-INR Sent. vc1 05:23 Troponin HS Sent. vc1 05:23 Alcohol Level Sent. vc1 05:32 Basic Metabolic Panel Sent. dd2 05:32 CBC with Diff Sent. dd2 05:32 LFT's Sent. dd2 05:32 NT PRO-BNP Sent. dd2 05:32 PT-INR Sent. dd2 05:32 Troponin HS Sent. dd2 05:32 Alcohol Level Sent. dd2 05:56 CT Chest Wo Con In Process Unspecified. EDMS 06:59 Provided Education on: pain medication, fall risks/safety, ETOH use, d/c instructions. dd2 06:59 IV discontinued, intact, bleeding controlled, No redness/swelling at site. Pressure dd2 dressing applied. Administered Medications: 05:32 Drug: morphine IVP or IV 2 mg IVP once over 4 mins Route: IVP; Infused Over: 4 mins; dd2 Site: left antecubital; 05:47 Follow up: Response: No adverse reaction dd2 05:32 Drug: NS 0.9% IV 1000 ml IV at 1 bolus Per protocol; 1000 mL bolus Route: IV; Rate: 1 dd2 bolus; Site: left antecubital; 05:47 Follow up: Response: No adverse reaction dd2 06:32 Follow up: IV Status: Completed infusion; IV Intake: 1000ml dd2 05:32 Drug: Thiamine IV 100 mg IV at bolus once Route: IV; Rate: bolus; Site: left dd2 antecubital; 05:47 Follow up: Response: No adverse reaction dd2 Medication: 03:18 VIS not applicable for this client. dd2 Intake: 06:32 IV: 1000ml; Total: 1000ml. dd2 Outcome: 06:50 Discharge ordered by . sp4 06:59 Discharged to home via wheelchair, dd2 06:59 Condition: stable 06:59 Discharge instructions given to patient, Instructed on discharge instructions, follow up and referral plans. medication usage, Demonstrated understanding of instructions, follow-up care, medications, Prescriptions given X 1, 07:04 Patient left the ED. dd2 Signatures: Dispatcher [employer] EDMS Gena Arredondo RN RN vc1 Cornell Carbajal MD MD sp4 VIDAL CORREA RN RN dd2
--- NOTE | 2024-03-15 06:50 | EDPHYS ---
Physician Documentation [facility] Name: Gavin Polo Jr Age: 68 yrs Sex: Male : 1955 Arrival Date: 03/15/2024 Time: 03:03 Bed 17 Private MD: ED Physician Cornell Carbajal HPI: 03/15 03:31 This 68 yrs old Male presents to ER via EMS with complaints of RIB PAIN. sp4 03:41 68-year-old male who has history of alcohol abuse , presents with acute worsening of sp4 the left chest wall pain associated with recent fractured ribs . Patient apparently sustained a fall on 03/04/2024 and was diagnosed with minimally displaced left posterior 5th through 8th rib fractures. Patient now presents acutely intoxicated complaining of worsening left-sided chest pain . . Historical: - Allergies: 03:12 No Known Allergies; dd2 - PMHx: 03:12 Anxiety; Atrial valve stenosis; Elizondo's Esophagus; central tremor; etoh abuse; GERD; dd2 Hypertension; - PSHx: 03:12 heart valve replacement; dd2 - Immunization history:: Adult Immunizations unknown. - Infectious Disease History:: Denies. - Social history:: Smoking status: Patient denies any tobacco usage or history of. - Family history:: not pertinent. ROS: 03:41 Constitutional: Negative for fever, chills, and weight loss, positive left-sided sp4 chest pain 03:41 All other systems are negative, Exam: 03:41 Constitutional: This is a well developed, well nourished patient who is awake, alert, sp4 and in no acute distress. Appears acutely intoxicated Head/Face: Normocephalic, atraumatic. Eyes: Pupils equal round and reactive to light, extra-ocular motions intact. Lids and lashes normal. Conjunctiva and sclera are not injected. Cornea within normal limits. Periorbital areas with no swelling, redness, or edema. ENT: Nares patent. No nasal discharge, no septal abnormalities noted. Tympanic membranes are normal and external auditory canals are clear. Oropharynx with no redness, swelling, or masses, exudates, or evidence of obstruction, uvula midline. Mucous membranes moist. Neck: Trachea midline, no thyromegaly or masses palpated, and no cervical lymphadenopathy. Supple, full range of motion without nuchal rigidity, or vertebral point tenderness. Chest/axilla: Normal chest wall appearance and motion. Nontender with no deformity. No lesions are appreciated. Cardiovascular: Regular rate and rhythm with a normal S1 and S2. No gallops, murmurs, or rubs. Normal PMI, no JVD. No pulse deficits. Respiratory: Lungs have equal breath sounds bilaterally, clear to auscultation and percussion. No rales, rhonchi or wheezes noted. No increased work of breathing, no retractions or nasal flaring. Abdomen/GI: Soft, with normal bowel sounds. No distension or tympany. No guarding or rebound. No evidence of tenderness throughout. Back: No spinal tenderness. No costovertebral tenderness. Skin: Warm, dry with normal turgor. Normal color with no rashes, no lesions, and no evidence of cellulitis. MS/ Extremity: Pulses equal, no cyanosis. Neurovascular intact. Full, normal range of motion. Neuro: Awake and alert, GCS 15, oriented to person, place, time, and situation. Cranial nerves II-XII grossly intact. Motor strength 5/5 in all extremities. Sensory grossly intact. Psych: Awake, alert, with orientation to person, place and time. Behavior, mood, and affect are within normal limits 03:41 ECG was reviewed by the Attending Physician. EKG 0 311 reveals normal sinus rhythm normal EKG. Heart rate 79 Vital Signs: 03:09 BP 150 / 94; Pulse 96; Resp 17; Temp 98.4; Pulse Ox 98% ; Weight 96.16 kg; Pain 10/10; dd2 03:18 BP 149 / 72; Pulse 75; Resp 16; Pulse Ox 98% ; dd2 05:34 BP 141 / 70; Pulse 82; Resp 16; Pulse Ox 97% ; dd2 06:59 BP 152 / 78; Pulse 84; Resp 16; Temp 98.3; Pulse Ox 97% ; dd2 03:09 Pain Scale: Adult dd2 [place] Coma Score: 03:18 Eye Response: spontaneous(4). Motor Response: obeys commands(6). Verbal Response: dd2 oriented(5). Total: 15. 03:41 Eye Response: spontaneous(4). Motor Response: obeys commands(6). Verbal Response: sp4 oriented(5). Total: 15. MDM: 03:40 Patient medically screened. sp4 03:41 ED course: CT review from 03/04/2024 - EXAMINATION: CT CHEST WITHOUT CONTRAST CLINICAL sp4 INDICATION: Male, 68 years old. Rib Pain - Left;Productive cough TECHNIQUE: Routine CT scan of the chest without intravenous contrast. One or more of the following dose reduction techniques were used: Automated exposure control, adjustment of the mA and/or kV according to patient size, and/or iterative reconstruction. Unless otherwise specified, incidental findings do not require dedicated imaging follow-up. COMPARISON: 10/29/2022 FINDINGS: LOWER NECK: Visualized thyroid gland and soft tissues are normal. LUNGS: The lungs are clear. No evidence of airspace or interstitial process. No worrisome nodules. PLEURA: No pleural effusion. No pneumothorax. . MEDIASTINUM AND LYMPH NODES: No mediastinal mass or fluid collection. Normal size mediastinal, hilar, and axillary lymph nodes. OSSEOUS STRUCTURES AND CHEST WALL: Posterior left rib fractures affecting the fifth, sixth, seventh and eighth ribs noted with minimal displacement. UPPER ABDOMEN: Slightly nodular liver contour. IMPRESSION: Minimally displaced left posterior fifth through eighth ribs noted. No pneumothorax. . 06:46 ED course: EXAMINATION: CT CHEST WITHOUT IV CONTRAST INDICATION: Male, 68 years old, sp4 left chest pain, rib fractures COMPARISON(S): 03/04/2024 TECHNIQUE: CT acquisition of the chest without contrast. Coronal and sagittal reformatted images provided. This exam was performed according to departmental dose-optimization program which includes automated exposure control, adjustment of the mA and/or kV according to patient size, and/or use of iterative reconstruction technique. FINDINGS: SUPPORTIVE DEVICES: None. LOWER NECK: Unremarkable. Beam hardening from arms down positioning results in decreased [id number] and limits interpretation. CHEST: Mediastinum/ezra: Aortic atherosclerosis without aneurysm. The pulmonary vasculature is unremarkable. No evident thoracic adenopathy. Unremarkable esophagus. Heart: Normal size. No pericardial thickening or effusion. Aortic valve replacement and probable left coronary stent. Lungs: No pulmonary consolidation. Central airways are clear. Pleural Space: No pleural effusion or pneumothorax. UPPER ABDOMEN: No acute finding. Nodular hepatic morphology. Cholelithiasis. MUSCULOSKELETAL: Osseous structures are unchanged. Redemonstrated left posterior 5th-8th rib fractures. Sternotomy wires. IMPRESSION: 1. No significant interval change from 11 days prior. 2. Redemonstrated mildly displaced left posterior 5th-8th rib fractures. 3. Additional chronic and incidental findings above. . 06:48 Differential diagnosis: acute pericarditis, anxiety, coronary artery disease chest wall sp4 pain, gastritis. HEART Score: History: Slightly Suspicious (0), ECG: Normal (0), Age: > or = 65 years (2), Risk Factors: No Risk Factors Known (0), Troponin: < or = 1 x Normal Limit (0), Total Score = 2. The patient was not given aspirin in the Emergency Department. Aspirin not given, patient refused. Data reviewed: vital signs, nurses notes, EMS record, lab test result(s), radiologic studies, CT scan. ED course: Patient has no sign of acute ACS. Stable for discharge home. . 03/15 03:39 Order name: Alcohol Level; Complete Time: 05:58 sp4 03/15 03:39 Order name: Basic Metabolic Panel; Complete Time: 06:22 sp4 03/15 03:39 Order name: CBC with Diff; Complete Time: 06:41 sp4 03/15 03:39 Order name: LFT's; Complete Time: 06:22 sp4 03/15 03:39 Order name: NT PRO-BNP; Complete Time: 06:22 sp4 03/15 03:39 Order name: PT-INR; Complete Time: 05:58 sp4 03/15 03:39 Order name: Troponin HS; Complete Time: 06:22 sp4 03/15 05:43 Order name: CBC Smear Scan; Complete Time: 06:41 EDNM 03/15 03:39 Order name: CT Chest Wo Con sp4 03/15 03:39 Order name: EKG; Complete Time: 03:40 sp4 03/15 03:39 Order name: Cardiac monitoring; Complete Time: 04:04 sp4 03/15 03:39 Order name: EKG - Nurse/Tech; Complete Time: 04:04 sp4 03/15 03:39 Order name: IV Saline Lock; Complete Time: 04:04 sp4 03/15 03:39 Order name: Labs collected and sent; Complete Time: 05:23 sp4 03/15 03:39 Order name: O2 Per Protocol; Complete Time: 04:04 sp4 03/15 03:39 Order name: O2 Sat Monitoring; Complete Time: 04:04 sp4 EC:41 Rate is 79 beats/min. Rhythm is regular, Normal Sinus Rhythm. QRS [place] is Normal. [place] sp4 interval is normal. QRS interval is normal. QT interval is normal. No Q waves. T waves are Normal. No ST changes noted. Clinical impression: Normal ECG. Interpreted by me. Reviewed by me. Administered Medications: 05:32 Drug: morphine IVP or IV 2 mg IVP once over 4 mins Route: IVP; Infused Over: 4 mins; dd2 Site: left antecubital; 05:47 Follow up: Response: No adverse reaction dd2 05:32 Drug: NS 0.9% IV 1000 ml IV at 1 bolus Per protocol; 1000 mL bolus Route: IV; Rate: 1 dd2 bolus; Site: left antecubital; 05:47 Follow up: Response: No adverse reaction dd2 06:32 Follow up: IV Status: Completed infusion; IV Intake: 1000ml dd2 05:32 Drug: Thiamine IV 100 mg IV at bolus once Route: IV; Rate: bolus; Site: left dd2 antecubital; 05:47 Follow up: Response: No adverse reaction dd2 Disposition Summary: 03/15/24 06:50 Discharge Ordered Notes: Location: Home sp4 Problem: new sp4 Symptoms: have improved sp4 Condition: Stable sp4 Diagnosis - Acute left chest wall pain, fractures left posterior rib 5 through 8. sp4 - Alcohol abuse with intoxication sp4 Followup: sp4 - With: Private Physician - When: 7 - 10 days - Reason: Recheck today's complaints Discharge Instructions: - Discharge Summary Sheet sp4 - Rib Fracture, [id number] sp4 Forms: - Patient Portal Instructions sp4 Prescriptions: - Ibuprofen 800 mg Oral Tablet - take 1 tablet ORAL route every 8 hours As needed take with food; 30 tablet; sp4 Refills: 0, Product Selection Permitted Signatures: Dispatcher [employer] Cornell Barrow MD MD sp4 VIDAL CORREA RN RN dd2
--- NOTE | 2024-03-15 06:54 | RAD REPORT ---
EXAMINATION: CT CHEST WITHOUT IV CONTRAST INDICATION: Male, 68 years old, left chest pain, rib fractures COMPARISON(S): 03/04/2024 TECHNIQUE: CT acquisition of the chest without contrast. Coronal and sagittal reformatted images prov ided. This exam was performed according to departmental dose-optimization program which includes automated exposure control, adjustment of the mA and/or kV according to patient size, and/or use of i terative reconstruction technique. FINDINGS: SUPPORTIVE DEVICES: None. LOWER NECK: Unremarkable. Beam hardening from arms down positioning results in decreased [id number] and limits interpretat ion. CHEST: Mediastinum/ezra: Aortic atherosclerosis without aneurysm. The pulmonary vasculature is unremarkable. No evident thoracic adenopathy. Unremarkable esophagus. Heart: Normal size. No pericardial thickening or effusion. Aortic valve replacement and probable left coronary stent. Lungs: No pulmonary consolidation. Central airways are clear. Pleural Space: No pleural effusion or pneumothorax. UPPER ABDOMEN: No acute finding. Nodular hepatic morphology. Cholelithiasis. MUSCULOSKELETAL: Osseous structures are unchanged. Redemonstrated left posterior 5th-8th rib fracture s. Sternotomy wires. IMPRESSION: 1. No significant interval change from 11 days prior. 2. Redemonstrated mildly displaced left posterior 5th-8th rib fractures. 3. Additional chronic and incidental findings above. Electronically signed by: Sander Johnson MD 03/15/2024 06:30 AM CDT Due to temporary technical issues with the PACS/Grid[employer] reporting system, reports are being jolie d by the in-house radiologist without review as a courtesy to ensure prompt reporting the interpreting radiologist is fully responsible for the content of the report. Transcribed Date/Time: 03/15/2024 6:54 AM
[2024-03-15 13:14] VITALS: O2SAT 97
[2024-03-15 13:16] VITALS: BP 152/78; TEMP 98.3
--- NOTE | 2024-03-15 16:32 | EKG ---
Test Date: 2024-03-15 Test Time: 03:11:53 Electrophysiology Scientist: KEN MEASUREMENT RESULTS: Intervals: Rate: 79 NE: 178 QRSD: 88 QT: 364 QTc: 417 [place]: P: 65 NE: 178 QRS: 43 T: 57 INTERPRETIVE STATEMENTS: Normal sinus rhythm Normal ECG Compared to ECG 01/25/2024 12:46:11 No significant changes Electronically Signed On 03-15-24 16:31:41 CDT by Andrés Baptiste
== END 2024-03-15 07:04 | disposition home or self-care (01) ==
LOC: ER 03:03
DX: S22.42XA Multiple fractures of ribs, left side, initial encounter for closed fracture (principal); F10.129 Alcohol abuse with intoxication, unspecified; I10 Essential (primary) hypertension; Z95.2 Presence of prosthetic heart valve
CPT/HCPCS: 96361; 93005; 85025; 80048; 36415; 85610; 80076; 84484; 83880; 71250; 96375; 96374; 99285; 82077; J3411; J2270; J7030

== ENCOUNTER 2024-04-05 09:00 | Emergency (ER) | payer OTHER ==
[2024-04-05] MEDS ORDERED: NA CHLORIDE 0.9% 1,000 ML ONE (09:41)
[2024-04-05 09:44] LABS: Absolute Basophils 0.1 K/uL (0-0.5); Absolute Lymphocytes (CBC) 0.8 K/uL (0.7-4.9); Absolute Monocytes 0.7 K/uL (0.1-1.3); Basophils % 0.8 % (0-1.3); Eosinophils % 0.3 % (0-4.4); Hematocrit 26.5 % (39.6-49.0); Hemoglobin 9.6 g/dL (13.6-17.9); Lymphocytes % 12.2 % (15.3-44.8); MCHC 36.2 g/dL (32.0-36.0); MCV 107.5 fL (80-100); Monocytes % 11.3 % (3.3-12.3); Neutrophils % 75.4 % (41.7-73.7); Nucleated Red Blood Cells % 0.2 % (0-0); Platelets 137 thou/uL (152-406); RBC Red Blood Cell Count 2.46 M/uL (4.33-5.43); Red Cell Distribution Width 15.1 % (12.1-15.2)
[2024-04-05 09:45] LABS: PT Prothrombin Time 12.4 SECONDS (9.4-12.5); Protime INR 1.11
--- NOTE | 2024-04-05 09:58 | RAD REPORT ---
EXAMINATION: ONE VIEW CHEST XR CLINICAL INDICATION: Male, 68 years old.,Cough;Dyspnea TECHNIQUE: Frontal chest projection is submitted. Examination is limited by patient positioning and t echnique. COMPARISON: 01/25/2024 FINDINGS: The lungs are well inflated and clear. No pneumothorax or sizable effusion. The heart is normal in s ize. Sequelae of median sternotomy. IMPRESSION: No acute intrathoracic abnormalities.
[2024-04-05 10:06] LABS: Albumin 3.5 g/dL (3.4-5.0); Albumin/Globulin Ratio 0.9 (1.1-1.8); Anion Gap 14.4 mEq/L (5.0-15.0); Bilirubin Direct 0.6 mg/dL (0-0.2); Bilirubin Indirect, Calculated 0.6 mg/dL (0.2-0.8); Bilirubin Total 1.2 mg/dL (0.2-1.0); Globulin 4.1 g/dL (2.3-3.5); Potassium 3.4 mEq/L (3.5-5.1); Protein, Total 7.6 g/dL (6.4-8.2); Troponin High Sensitivity 22.1 pg/mL (<58.9)
[2024-04-05 10:08] LABS: Magnesium 0.9 mg/dL (1.6-2.4)
[2024-04-05 10:11] LABS: SARS-CoV-2 Antigen CONTROL BLUE LINE VIS/BG OK; SARS-CoV-2 Antigen Rapid Res Negative (Negative)
[2024-04-05 10:14] LABS: Platelet Estimate ADEQ; Platelets Clumped NOTED; White Blood Cell Scan OK (OK)
[2024-04-05 10:15] LABS: Anisocytosis SLIGHT; Blood Morphology Comment NOTED (NOT SEEN); Macrocytosis 1+; Platelets, Giant FEW
[2024-04-05] MEDS ORDERED: AZITHROMYCIN 250 MG TAB ONE (10:17)
[2024-04-05] MEDS ORDERED: IPRATROPIUM BROM 0.5MG/2.5ML ONE (10:17)
[2024-04-05] MEDS ORDERED: CEFTRIAXONE 1000 MG/VIAL ONE (10:17)
[2024-04-05] MEDS ORDERED: Magnesium Sulfate 2gm IVPB 2 G/50 ML BAG IV ONE (10:17)
[2024-04-05] MEDS ORDERED: LEVALBUTEROL 1.25 MG/3 ML NEB ONE (10:17)
[2024-04-05] MEDS ORDERED: PANTOPRAZOLE 40MG TABLET PO ONE (13:06)
--- NOTE | 2024-04-05 13:12 | EDPHYS ---
Physician Documentation [facility] Name: Gavin Polo Jr Age: 68 yrs Sex: Male : 1955 Arrival Date: 04/05/2024 Time: 09:00 Bed 6 Private MD: ED Physician Britton Laurent HPI: 04/05 13:04 This 68 yrs old Male presents to ER via Wheelchair with complaints of freedom Shortness Of Breath, Cough. 13:04 The patient has shortness of breath with light activity. Onset: The symptoms/episode freedom began/occurred 2 day(s) ago. Duration: The symptoms are continuous, and are steadily getting worse. The patient's shortness of breath is aggravated by coughing. Associated signs and symptoms: Pertinent positives: non-productive cough. Severity of symptoms: in the emergency department the symptoms have improved mildly. The patient has experienced similar episodes in the past, several times. Historical: - Allergies: 09:10 No Known Allergies; aa5 - Home Meds: 09:13 pantoprazole 40 mg Oral tablet 2 times per day [Active]; atorvastatin 20 mg Oral tablet aa5 daily [Active]; levothyroxine 50 mcg oral tablet daily [Active]; aspirin 81 mg Oral tablet daily [Active]; losartan 50 mg oral tablet once [Active]; tamsulosin 0.4 mg Oral capsule 2 caps daily [Active]; lactulose 20 gram/30 mL oral solution 2 times per day [Active]; metoprolol tartrate 25 mg Oral tablet 2 times per day [Active]; chlordiazepoxide HCl 25 mg Oral capsule 2 times per day [Active]; - PMHx: 09:10 Anxiety; Atrial valve stenosis; Elizondo's Esophagus; central tremor; etoh abuse; GERD; aa5 Hypertension; - PSHx: 09:10 heart valve replacement; aa5 - Immunization history:: Adult Immunizations unknown. - Infectious Disease History:: Denies. - Social history:: Smoking status: Patient denies any tobacco usage or history of. ROS: 13:06 Constitutional: Negative for fever, chills, and weight loss, Eyes: Negative for injury, freedom pain, redness, and discharge, ENT: Negative for injury, pain, and discharge, Neck: Negative for injury, pain, and swelling, Cardiovascular: Negative for chest pain, palpitations, and edema, Abdomen/GI: Negative for abdominal pain, nausea, vomiting, diarrhea, and constipation, Back: Negative for injury and pain, : Negative for injury, bleeding, discharge, and swelling, MS/Extremity: Negative for injury and deformity, Skin: Negative for injury, rash, and discoloration, Neuro: Negative for headache, weakness, numbness, tingling, and seizure, Psych: Negative for depression, anxiety, suicide ideation, homicidal ideation, and hallucinations, Allergy/Immunology: Negative for hives, rash, and allergies, Endocrine: Negative for neck swelling, polydipsia, polyuria, polyphagia, and marked weight changes, Hematologic/Lymphatic: Negative for swollen nodes, abnormal bleeding, and unusual bruising, 13:06 Respiratory: Positive for cough, "sounds productive", 13:06 MS/extremity: Negative for acute changes, swelling, tenderness, 13:06 Abdomen/GI: Negative for nausea, vomiting, hematemesis, black/tarry stool, rectal pain, freedmo rectal bleeding, Exam: 13:06 Constitutional: This is a well developed, well nourished patient who is awake, alert, freedom and in no acute distress. Head/Face: Normocephalic, atraumatic. Eyes: Pupils equal round and reactive to light, extra-ocular motions intact. Lids and lashes normal. Conjunctiva and sclera are non-icteric and not injected. Cornea within normal limits. Periorbital areas with no swelling, redness, or edema. ENT: Nares patent. No nasal discharge, no septal abnormalities noted. Tympanic membranes are normal and external auditory canals are clear. Oropharynx with no redness, swelling, or masses, exudates, or evidence of obstruction, uvula midline. Mucous membranes moist. Neck: Trachea midline, no thyromegaly or masses palpated, and no cervical lymphadenopathy. Supple, full range of motion without nuchal rigidity, or vertebral point tenderness. No Meningismus. Chest/axilla: Normal chest wall appearance and motion. Nontender with no deformity. No lesions are appreciated. Cardiovascular: Regular rate and rhythm with a normal S1 and S2. No gallops, murmurs, or rubs. Normal PMI, no JVD. No pulse deficits. Abdomen/GI: Soft, non-tender, with normal bowel sounds. No distension or tympany. No guarding or rebound. No evidence of tenderness throughout. Back: No spinal tenderness. No costovertebral tenderness. Full range of motion. Male : Normal genitalia with no discharge or lesions. Skin: Warm, dry with normal turgor. Normal color with no rashes, no lesions, and no evidence of cellulitis. MS/ Extremity: Pulses equal, no cyanosis. Neurovascular intact. Full, normal range of motion. Neuro: Awake and alert, GCS 15, oriented to person, place, time, and situation. Cranial nerves II-XII grossly intact. Motor strength 5/5 in all extremities. Sensory grossly intact. Cerebellar exam normal. Normal gait. Psych: Awake, alert, with orientation to person, place and time. Behavior, mood, and affect are within normal limits. 13:06 ECG was reviewed by the Attending Physician. 13:06 Respiratory: the patient does not display signs of respiratory distress, Respirations: normal, Breath sounds: bronchial sounds, that are mild, are scattered, decreased breath sounds, that are mild, rhonchi, that are mild, are scattered, stridor, is not appreciated, + upper airway congestion. Vital Signs: 09:04 BP 171 / 80; Pulse 84; Resp 22 S; Temp 98.5(O); Pulse Ox 97% on R/A; Weight 96.16 kg aa5 (R); Height 5 ft. 8 in. (R); 09:48 BP 171 / 80; Pulse 87; Resp 19; Pulse Ox 96% on R/A; ko1 10:16 BP 154 / 77; Pulse 82; Resp 19; Pulse Ox 95% ; ko1 11:38 BP 161 / 72; Pulse 98; Resp 20; Pulse Ox 95% on R/A; mb9 12:27 BP 158 / 70; Pulse 92; Resp 18; Pulse Ox 97% on R/A; ko1 09:04 Body Mass Index 32.23 (96.16 kg, 172.72 cm) aa5 MDM: 09:08 Medical Screening Exam initiated freedom 13:08 Differential diagnosis: Anemia Anxiety Reaction asthma, Bronchitis CHF exacerbation, freedom Chronic Obstructive Pulmonary Disease pneumonia, Pneumothorax Psychogenic pulmonary edema, Pulmonary Embolism reactive airway disease, Sepsis. Antibiotic administration: The patient is discharged and will get outpatient antibiotics, Zithromax. Differential Diagnosis altered mental status, sepsis, flu. Immunization status: Pneumococcal vaccine: within last 5 years. Influenza vaccine: within last 5 years. Data reviewed: vital signs, nurses notes, lab test result(s), EKG, radiologic studies, plain films. Consideration of Admission/Observation Escalation of care including admission/observation considered. I considered the following discharge prescriptions or medication management in the emergency department Medications were administered in the Emergency Department. See MAR. Independent interpretation of the following test(s) in the Emergency Department EKG: See my EKG interpretation above. Test considered but Not performed: CT: no ct chest. 04/05 09:21 Order name: Basic Metabolic Panel; Complete Time: 10:11 [facility] 04/05 09:21 Order name: CBC with Diff; Complete Time: 12:58 [facility] 04/05 09:21 Order name: LFT's; Complete Time: 10: [facility] 04/05 09:21 Order name: Magnesium; Complete Time: 10:11 [facility] 04/05 09:21 Order name: NT PRO-BNP; Complete Time: 10:11 [facility] 04/05 09:21 Order name: PT-INR; Complete Time: 10:11 [facility] 04/05 09:21 Order name: Troponin HS; Complete Time: 10:11 [facility] 04/05 09:21 Order name: Flu; Complete Time: 12:58 [facility] 04/05 09:21 Order name: SARS RAPID; Complete Time: 10:11 [facility] 04/05 09:21 Order name: Lipase; Complete Time: 10:11 [facility] 04/05 10:15 Order name: CBC Smear Scan; Complete Time: 12:58 EDMS 04/05 09:21 Order name: XRAY Chest (1 view); Complete Time: 10:11 [facility] 04/05 09:21 Order name: EKG; Complete Time: 09:22 [facility] 04/05 09:21 Order name: Cardiac monitoring; Complete Time: :24 [facility] 04/05 09:21 Order name: EKG - Nurse/Tech; Complete Time: :30 [facility] 04/05 09:21 Order name: IV Saline Lock; Complete Time: : [facility] 04/05 09:21 Order name: Labs collected and sent; Complete Time: :30 [facility] 04/05 09:21 Order name: O2 Per Protocol; Complete Time: 09:24 [facility] 04/05 09:21 Order name: O2 Sat Monitoring; Complete Time: 09:24 [facility] EC:06 Rate is 87 beats/min. Rhythm is regular. QRS [place] is Normal. SC interval is normal. QRS freedom interval is normal. QT interval is normal. No Q waves. T waves are Normal. No ST changes noted. Clinical impression: NSR w/ Non-specific ST/T Changes and No evidence of ischemia. Interpreted by me. Reviewed by me. Administered Medications: 09:43 Drug: NS 0.9% IV 1000 ml IV at 125 ml/hr continuous Route: IV; Rate: 125 ml/hr; Site: mb9 right forearm; 13:03 Follow up: Response: No adverse reaction; IV Status: Order to discontinue infusion mb9 10:18 Drug: Levalbuterol Inhalation 2.5 mg Inhalation once Route: Inhalation; mb9 11:18 Follow up: Response: No adverse reaction mb9 10:20 Drug: Rocephin IV 1 grams IV at per protocol once; Given slow IV push per pharmacy mb9 instructions Route: IV; Rate: per protocol; Site: right forearm; 11:18 Follow up: Response: No adverse reaction; IV Status: Completed infusion mb9 10:22 Drug: Ipratropium Inhalation Aerosol 0.5 mg Inhalation once Route: Inhalation; mb9 11:18 Follow up: Response: No adverse reaction mb9 10:27 Drug: Magnesium Sulfate IVPB 2 grams IVPB once over 1 hrs Route: IVPB; Infused Over: 1 mb9 hrs; Site: right forearm; 11:18 Follow up: Response: No adverse reaction; IV Status: Completed infusion mb9 10:27 Drug: AZITHromycin PO 500 mg PO once Route: PO; mb9 11:18 Follow up: Response: No adverse reaction mb9 13:09 Drug: Pantoprazole PO 40 mg PO once Route: PO; mb9 13:17 Follow up: Response: No adverse reaction mb9 Disposition Summary: 04/05/24 13:12 Discharge Ordered Notes: Location: Home freedom Problem: new freedom Symptoms: have improved freedom Condition: Stable freedom Diagnosis - Acute upper respiratory infection, unspecified freedom - Cough freedom - Hypomagnesemia freedom - Alcohol dependence freedom - Alcohol abuse, uncomplicated freedom - Unspecified kidney failure - chronic freedom - Anemia, unspecified freedom Followup: freedom - With: Private Physician - When: 2 - 3 days - Reason: Recheck today's complaints, Continuance of care, Re-evaluation by your physician Followup: freedom - With: Flo Gates MD - When: 2 - 3 days - Reason: Recheck today's complaints, Re-evaluation by your physician Discharge Instructions: - Discharge Summary Sheet freedom - Finding Treatment for Addiction freedom - Anemia freedom - Alcohol Use Disorder freedom - Hypomagnesemia freedom - Substance Use Disorder freedom - Upper Respiratory Infection, Adult freedom - Cool Mist Vaporizer freedom - Upper Respiratory Infection, Adult, [id number] freedom - Alcohol Abuse and Nutrition freedom - Cough, Adult, Wqwq-kw-Gehn freedom - Chronic Kidney Disease, Adult, [id number] freedom - Cough, Adult freedom - Chronic Kidney Disease, Adult feredom Forms: - Medication Reconciliation Form freedom - Antibiotic Education freedom - Prescription Opioid Use freedom - Patient Portal Instructions [facility] - Leadership Thank You Letter [facility] Prescriptions: - Protonix 40 mg Oral Tablet - take 1 tablet ORAL route once daily; 30 tablet; Refills: 0, Product Selection [facility] Permitted - Tessalon Perles 100 mg Oral capsule - take 2 capsule ORAL route every 8 hours As needed; 30 capsule; Refills: 0, [facility] Product Selection Permitted - Guaifenesin AC 10-100 mg/5 mL Oral liquid - take 5 milliliter ORAL route every 4-6 hours As needed; 150 milliliter; freedom Refills: 0, Product Selection Permitted - Zithromax 500 mg Oral Tablet - take 1 tablet ORAL route once daily for 5 days; 5 tablet; Refills: 0, Product [facility] Selection Permitted Signatures: Dispatcher [employer] Britton Winslow MD MD cha Calderon, Audri, RN RN aa5 Monique, Karen Richard RN RN mb9
--- NOTE | 2024-04-05 13:12 | ER ---
Nurse's Notes [facility] Name: Gavin Polo Jr Age: 68 yrs Sex: Male : 1955 Arrival Date: 04/05/2024 Time: 09:00 Bed 6 Private MD: Diagnosis: Acute upper respiratory infection, unspecified;Cough;Hypomagnesemia;Alcohol dependence;Alcohol abuse, uncomplicated;Unspecified kidney failure-chronic;Anemia, unspecified Presentation: 04/05 09:04 Chief complaint: Patient states: SOB and cough that began Monday. Coronavirus screen: aa5 shortness of breath. Ebola Screen: Patient denies travel to an Ebola-affected area in the 21 days before illness onset. Initial Sepsis Screen: Does the patient meet any 2 criteria? RR > 20 per min. Does the patient have a suspected source of infection? No. Patient's initial sepsis screen is negative. Risk Assessment: Do you want to hurt yourself or someone else? Patient reports no desire to harm self or others. Onset of symptoms was March 2024. 09:04 Acuity: NICK 3 aa5 09:04 Method Of Arrival: Wheelchair aa5 Triage Assessment: 09:45 General: Appears in no apparent distress. Behavior is calm, cooperative. Respiratory: mb9 the patient has mild shortness of breath. Respiratory: Onset: The symptoms/episode began/occurred suddenly. Historical: - Allergies: 09:10 No Known Allergies; aa5 - Home Meds: 09:13 pantoprazole 40 mg Oral tablet 2 times per day [Active]; atorvastatin 20 mg Oral tablet aa5 daily [Active]; levothyroxine 50 mcg oral tablet daily [Active]; aspirin 81 mg Oral tablet daily [Active]; losartan 50 mg oral tablet once [Active]; tamsulosin 0.4 mg Oral capsule 2 caps daily [Active]; lactulose 20 gram/30 mL oral solution 2 times per day [Active]; metoprolol tartrate 25 mg Oral tablet 2 times per day [Active]; chlordiazepoxide HCl 25 mg Oral capsule 2 times per day [Active]; - PMHx: 09:10 Anxiety; Atrial valve stenosis; Elizondo's Esophagus; central tremor; etoh abuse; GERD; aa5 Hypertension; - PSHx: 09:10 heart valve replacement; aa5 - Immunization history:: Adult Immunizations unknown. - Infectious Disease History:: Denies. - Social history:: Smoking status: Patient denies any tobacco usage or history of. Screenin:44 [facility] ED Fall Risk Assessment (Adult) History of falling in the last 3 months, mb9 including since admission No falls in past 3 months (0 pts) Confusion or Disorientation No (0 pts) Intoxicated or Sedated No (0 pts) Impaired Gait No (0 pts) Mobility Assist Device Used No (0 pt) Altered Elimination No (0 pt) Score/Fall Risk Level 0 - 2 = Low Risk Oriented to surroundings, Maintained a safe environment, Educated pt \T\ family on fall prevention, incl call for assistance when getting out of bed. Abuse screen: Denies threats or abuse. Nutritional screening: No deficits noted. Tuberculosis screening: No symptoms or risk factors identified. Assessment: 09:43 General: Appears in no apparent distress. Behavior is calm, cooperative. Pain: mb9 Complains of pain in chest Pain does not radiate. Neuro: Mancini Agitation-Sedation Scale (RASS): 0 - Alert and Calm Level of Consciousness is awake, alert, obeys commands, Oriented to person, place, time, situation, Appropriate for age. Cardiovascular: Reports shortness of breath, Heart tones S1 S2 present Patient's skin is warm and dry. Rhythm is regular. Respiratory: Reports shortness of breath cough that is Airway is patent Respiratory effort is even, unlabored, Respiratory pattern is regular, symmetrical, Breath sounds are clear bilaterally. GI: No signs and/or symptoms were reported involving the gastrointestinal system. : No signs and/or symptoms were reported regarding the genitourinary system. EENT: No signs and/or symptoms were reported regarding the EENT system. Derm: Skin is pink, warm \T\ dry. Musculoskeletal: Range of motion: intact in all extremities. 11:04 Reassessment: No changes from previously documented assessment. Patient and/or family mb9 updated on plan of care and expected duration. Pain level reassessed. Patient is alert, oriented x 3, equal unlabored respirations, skin warm/dry/pink. 13:03 Reassessment: No changes from previously documented assessment. Patient and/or family mb9 updated on plan of care and expected duration. Pain level reassessed. Patient is alert, oriented x 3, equal unlabored respirations, skin warm/dry/pink. Vital Signs: 09:04 BP 171 / 80; Pulse 84; Resp 22 S; Temp 98.5(O); Pulse Ox 97% on R/A; Weight 96.16 kg aa5 (R); Height 5 ft. 8 in. (R); 09:48 BP 171 / 80; Pulse 87; Resp 19; Pulse Ox 96% on R/A; ko1 10:16 BP 154 / 77; Pulse 82; Resp 19; Pulse Ox 95% ; ko1 11:38 BP 161 / 72; Pulse 98; Resp 20; Pulse Ox 95% on R/A; mb9 12:27 BP 158 / 70; Pulse 92; Resp 18; Pulse Ox 97% on R/A; ko1 09:04 Body Mass Index 32.23 (96.16 kg, 172.72 cm) aa5 ED Course: 09:02 Patient arrived in ED. mr 09:04 Arm band placed on Patient placed in an exam room, on a stretcher. aa5 09:06 Briana Santiago, RN is Primary Nurse. ko1 09:08 Britton Laurent MD is Attending Physician. [facility] 09:12 Triage completed. aa5 09:29 XRAY Chest (1 view) In Process Unspecified. EDMS 09:40 Initial lab(s) drawn, by me, sent to lab. Inserted saline lock: 20 gauge in right bc6 wrist, using aseptic technique. Blood collected. Flushed with 10 mL NS. 09:44 Primary Nurse role handed off by Briana Santiago, RN mb9 09:44 Karen Amaya, MAURISIO is Primary Nurse. mb9 09:45 Placed in gown. Bed in low position. Call light in reach. Side rails up X 1. Provided mb9 Education on: press call light if needing anything. Client placed on continuous cardiac and pulse oximetry monitoring. NIBP monitoring applied. site monitor on. Door closed. Noise minimized. Warm blanket given. Pillow given. 09:45 No provider procedures requiring assistance completed. mb9 12:27 IV discontinued, intact, bleeding controlled, No redness/swelling at site. Pressure ko1 dressing applied. 13:02 ED physician to see patient. ko1 13:10 Flo Gates MD is Referral Physician. freedom Administered Medications: 09:43 Drug: NS 0.9% IV 1000 ml IV at 125 ml/hr continuous Route: IV; Rate: 125 ml/hr; Site: mb9 right forearm; 13:03 Follow up: Response: No adverse reaction; IV Status: Order to discontinue infusion mb9 10:18 Drug: Levalbuterol Inhalation 2.5 mg Inhalation once Route: Inhalation; mb9 11:18 Follow up: Response: No adverse reaction mb9 10:20 Drug: Rocephin IV 1 grams IV at per protocol once; Given slow IV push per pharmacy mb9 instructions Route: IV; Rate: per protocol; Site: right forearm; 11:18 Follow up: Response: No adverse reaction; IV Status: Completed infusion mb9 10:22 Drug: Ipratropium Inhalation Aerosol 0.5 mg Inhalation once Route: Inhalation; mb9 11:18 Follow up: Response: No adverse reaction mb9 10:27 Drug: Magnesium Sulfate IVPB 2 grams IVPB once over 1 hrs Route: IVPB; Infused Over: 1 mb9 hrs; Site: right forearm; 11:18 Follow up: Response: No adverse reaction; IV Status: Completed infusion mb9 10:27 Drug: AZITHromycin PO 500 mg PO once Route: PO; mb9 11:18 Follow up: Response: No adverse reaction mb9 13:09 Drug: Pantoprazole PO 40 mg PO once Route: PO; mb9 13:17 Follow up: Response: No adverse reaction mb9 Medication: 09:45 VIS not applicable for this client. mb9 Outcome: 13:12 Discharge ordered by . freedom 13:16 Discharged to home ambulatory, with family, mb9 13:16 Condition: stable 13:16 Discharge instructions given to patient, family, Instructed on discharge instructions, follow up and referral plans. Demonstrated understanding of instructions, follow-up care, medications, Prescriptions given X 4, 13:19 Patient left the ED. mb9 Signatures: Dispatcher [employer] EDMS Britton Laurent MD MD cha Rivera, Mary, Reg Ivania Terry, RN RN aa5 Briana Santiago RN RN ko1 Karen Amaya, RN RN mb9 Jennifer Carson6
--- NOTE | 2024-04-05 14:10 | EKG ---
Test Date: 2024-04-05 Test Time: 09:29:12 Screw Machine Adjuster Automatic: MB MEASUREMENT RESULTS: Intervals: Rate: 87 ID: [id number] QRSD: 88 QT: 356 QTc: 428 [place]: P: 51 ID: [id number] QRS: 62 T: 65 INTERPRETIVE STATEMENTS: Normal sinus rhythm Normal ECG Compared to ECG 03/15/2024 03:11:53 No significant changes Electronically Signed On 04-05-24 14:09:13 CDT by Shivam Nolasco
[2024-04-05 23:37] VITALS: TEMP 98.5
[2024-04-05 23:41] VITALS: BP 158/70; O2SAT 97
== END 2024-04-05 13:19 | disposition home or self-care (01) ==
LOC: ER 09:00
DX: J06.9 Acute upper respiratory infection, unspecified (principal); E83.42 Hypomagnesemia; F10.20 Alcohol dependence, uncomplicated; D64.9 Anemia, unspecified; I12.9 Hypertensive chronic kidney disease with stage 1 through stage 4 chronic kidney disease, or unspecified chronic kidney disease; N18.9 Chronic kidney disease, unspecified; Z95.2 Presence of prosthetic heart valve; Z11.52 Encounter for screening for COVID-19
CPT/HCPCS: 96365; 96361; 93005; 85025; 80048; 36415; 83735; 85610; 80076; 84484; 83690; 83880; 87804 ×2; 71045; 99285; 87811; J3475; J7614; J7644; J7030; J0696

== ENCOUNTER 2024-05-19 03:43 | Emergency (ER) | payer OTHER ==
[2024-05-19 04:05] LABS: Absolute Basophils 0.1 K/uL (0-0.5); Absolute Eosinophils 0.2 K/uL (0-0.5); Absolute Monocytes 0.7 K/uL (0.1-1.3); Absolute Neutrophil 3.3 K/uL (1.8-8.0); Basophils % 1.3 % (0-1.3); Eosinophils % 3.7 % (0-4.4); Hematocrit 29.9 % (39.6-49.0); Hemoglobin 10.5 g/dL (13.6-17.9); Lymphocytes % 31.4 % (15.3-44.8); MCH 36.1 pg (27.0-35.0); MCHC 35.3 g/dL (32.0-36.0); MCV 102.2 fL (80-100); MPV 6.9 fL (7.6-11.3); Monocytes % 11.2 % (3.3-12.3); Neutrophils % 52.4 % (41.7-73.7); Nucleated Red Blood Cells % 0.1 % (0-0); Platelets 160 thou/uL (152-406); RBC Red Blood Cell Count 2.92 M/uL (4.33-5.43); Red Cell Distribution Width 15.5 % (12.1-15.2)
[2024-05-19] MEDS ORDERED: DIAZEPAM 10 MG/2 ML INJ SYRINGE ONE (04:07)
[2024-05-19] MEDS ORDERED: DIPHENHYDRAMINE 25 MG TAB/CAP ONE (04:07)
[2024-05-19 04:23] LABS: Anion Gap 12.4 mEq/L (5.0-15.0); Potassium 3.4 mEq/L (3.5-5.1); Troponin High Sensitivity 12.2 pg/mL (<58.9)
[2024-05-19] MEDS ORDERED: POTASSIUM CL SA 10 MEQ TAB PO ONE (04:41)
[2024-05-19] MEDS ORDERED: NA CHLORIDE 0.9% 1,000 ML ONE (04:42)
[2024-05-19] MEDS ORDERED: KCL 20 MEQ/100 mL IVPB 100 ML IV ONE (04:42)
[2024-05-19] MEDS ORDERED: Magnesium Sulfate 2gm IVPB 2 G/50 ML BAG IV ONE (04:42)
[2024-05-19 04:43] LABS: Blood Morphology Comment NOT SEEN (NOT SEEN); Platelet Estimate ADEQ; White Blood Cell Scan OK (OK)
--- NOTE | 2024-05-19 06:32 | RAD REPORT ---
CLINICAL HISTORY: Seizure. COMPARISON: CT Head 04/20/2023. 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 FINDINGS: There is no acute hemorrhage, mass effect or midline shift. Le-white differentiation is preserved. There is no hydrocephalus. There is no significant volume loss for age. The calvarium is intact. Orbits and globes are unremarkable. The paranasal sinuses are clear. Mastoid air cells are clear. IMPRESSION: No acute intracranial findings. 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 Transcribed Date/Time: 05/19/2024 6:32 AM
--- NOTE | 2024-05-19 06:41 | EDPHYS ---
Physician Documentation [facility] Name: Gavin Polo Jr Age: 68 yrs Sex: Male : 1955 Arrival Date: 05/19/2024 Time: 03:43 Bed 2 Private MD: ED Physician Geovanny Lay HPI: 05/19 03:54 This 68 yrs old Male presents to ER via Unassigned with complaints of ec2 restlessness and spasms. 03:54 Patient arrives today for evaluation of restlessness and spasms. States that he has ec2 anxiety and this feels similar. States that he is having some tremulousness. Patient reports that he otherwise has no chest pain or difficulty breathing. Denies any nausea or vomiting or diarrhea at this time. Reports that he is on some medication for anxiety however is unsure and has not been on it for some time.. Historical: - Allergies: 03:59 No Known Allergies; bm8 - Home Meds: 03:59 aspirin 81 mg Oral tablet daily [Active]; atorvastatin 20 mg Oral tablet daily bm8 [Active]; chlordiazepoxide HCl 25 mg Oral capsule 2 times per day [Active]; K2 Plus D3 1 Oral tablet daily [Active]; lactulose 20 gram/30 mL Oral solution 2 times per day [Active]; levothyroxine 50 mcg tablet daily [Active]; losartan 50 mg Oral tablet once [Active]; magnesium oxide 400 mg magnesium Oral tablet daily [Active]; metoprolol tartrate 25 mg Oral tablet 2 times per day [Active]; mirtazapine 15 mg Oral tablet daily [Active]; multivitamin Oral tablet daily [Active]; pantoprazole 40 mg Oral tablet 2 times per day [Active]; tamsulosin 0.4 mg Oral capsule 2 caps daily [Active]; - PMHx: 03:59 Anxiety; Elizondo's Esophagus; Atrial valve stenosis; central tremor; etoh abuse; GERD; bm8 Hypertension; - PSHx: 03:59 heart valve replacement; bm8 - Immunization history:: Adult Immunizations up to date. - Infectious Disease History:: Denies. - Social history:: Smoking status: Patient denies any tobacco usage or history of. Patient uses alcohol, on a daily basis. ROS: 03:54 Constitutional: as per hpi ec2 Exam: 03:54 Constitutional: GEN: NAD Head: atraumatic Eyes: EOMI Ears: External ears are ec2 normal. CV: regular rate LUNGS: no respiratory distress ABD: non-distended SKIN: no evidence of rashes MSK: no evidence of trauma. Psych: Anxious individual is otherwise cooperative with no acute distress Vital Signs: 03:57 BP 113 / 88; Pulse 70; Resp 18; Temp 98; Pulse Ox 96% ; Weight 93.44 kg; Height 5 ft. 8 bm8 in. ; Pain 0/10; 04:53 BP 99 / 77; Pulse 67; Resp 18; Temp 98; Pulse Ox 96% ; Pain 0/10; bm8 06:16 BP 109 / 64; Pulse 69; Resp 16; Temp 98; Pulse Ox 97% on R/A; Pain 0/10; bm8 03:57 Body Mass Index 31.32 (93.44 kg, 172.72 cm) bm8 03:57 Pain Scale: Adult bm8 04:53 Pain Scale: Adult bm8 06:16 Pain Scale: Adult bm8 [place] Coma Score: 04:03 Eye Response: spontaneous(4). Motor Response: obeys commands(6). Verbal Response: bm8 oriented(5). Total: 15. 04:53 Eye Response: spontaneous(4). Motor Response: obeys commands(6). Verbal Response: bm8 oriented(5). Total: 15. MDM: 03:50 Medical Screening Exam initiated ec2 03:54 Data reviewed: vital signs, nurses notes. ED course: Patient arrives today for ec2 evaluation of anxiety. Examination is revealing for well-appearing cooperative individual is otherwise in no acute distress with a reassuring examination. EKG obtained, independently reviewed and interpreted by me, shows normal sinus rhythm, rate of 55, no acute ST segment elevations, intervals are nonactionable. Will obtain lab work as well as chest x-ray. Differential diagnoses considered include processes such as ACS, electrolyte disturbances, arrhythmia, anemia.. 04:30 ED course: Patient with hypokalemia noted, will give magnesium and give the patient ec2 potassium as well.. 06:31 ED course: Chest x-ray shows no acute intrathoracic process.. ec2 06:31 ED course: CT scan of the head shows no acute intracranial abnormality.. ec2 06:31 ED course: Patient with slight hyponatremia noted, suspect since patient hyponatremia ec2 secondary to patient's longstanding alcohol abuse.. 05/19 03:54 Order name: Basic Metabolic Panel; Complete Time: 04:28 ec2 05/19 03:54 Order name: CBC with Diff; Complete Time: 05:02 ec2 05/19 03:54 Order name: Troponin HS; Complete Time: 04:28 ec2 05/19 04:45 Order name: CBC Smear Scan EDMS 05/19 03:54 Order name: XRAY Chest (1 view) ec2 05/19 04:30 Order name: CT Head Brain wo Cont ec2 05/19 03:54 Order name: Cardiac monitoring; Complete Time: 04:05 ec2 05/19 03:54 Order name: EKG - Nurse/Tech; Complete Time: 04:05 ec2 05/19 03:54 Order name: IV Saline Lock; Complete Time: 04:05 ec2 05/19 03:54 Order name: Labs collected and sent; Complete Time: 04:05 ec2 05/19 03:54 Order name: O2 Per Protocol; Complete Time: 04:05 ec2 05/19 03:54 Order name: O2 Sat Monitoring; Complete Time: 04:05 ec2 Administered Medications: 04:10 Drug: diphenhydrAMINE PO 50 mg PO once Route: PO; bm8 06:19 Follow up: Response: No adverse reaction bm8 04:11 Drug: Diazepam IVP 5 mg IVP once Route: IVP; Site: left forearm; bm8 06:19 Follow up: Response: No adverse reaction bm8 04:51 Not Given (cahnged orderr): potassium meq PO once bm8 04:51 Drug: Potassium Chloride IV 20 mEq IV at calculated rate once; administer over 1-2 bm8 hours Route: IV; Rate: calculated rate; Site: left forearm; 06:50 Follow up: Response: No adverse reaction; IV Status: Completed infusion; IV Intake: bm8 100ml 04:51 Drug: NS 0.9% IV 250 ml IV at calculated rate once; to be given as a bolus over 30 bm8 minutes Route: IV; Rate: calculated rate; Site: left forearm; 06:19 Follow up: Response: No adverse reaction; IV Status: Completed infusion; IV Intake: bm8 250ml 04:52 Drug: Magnesium Sulfate IVPB 2 grams IVPB once over 30 mins Route: IVPB; Infused Over: bm8 30 mins; Site: left forearm; 06:19 Follow up: Response: No adverse reaction; IV Status: Completed infusion; IV Intake: [id number] 04:52 Drug: Potassium Chloride PO 20 mEq PO once Route: PO; bm8 06:19 Follow up: Response: No adverse reaction bm8 06:41 Drug: hydrOXYzine PO 50 mg PO once Route: PO; bm8 06:50 Follow up: Response: No adverse reaction bm8 Disposition Summary: 05/19/24 06:40 Discharge Ordered Notes: Location: Home ec2 Condition: Stable ec2 Diagnosis - Hypokalemia ec2 - Cramp and spasm ec2 - Anxiety disorder, unspecified ec2 Followup: ec2 - With: Private Physician - When: - Reason: Re-evaluation by your physician Discharge Instructions: - Discharge Summary Sheet ec2 - Potassium Content of Foods ec2 Forms: - Medication Reconciliation Form ec2 - Antibiotic Education ec2 - Prescription Opioid Use ec2 - Patient Portal Instructions ec2 - Leadership Thank You Letter ec2 Prescriptions: - Hydroxyzine HCl 25 mg Oral Tablet - take 1 tablet ORAL route every 6 hours As needed; 30 tablet; Refills: 0, ec2 Product Selection Permitted Signatures: Dispatcher [employer] EDMS Geovanny Lay MD MD ec2 Isidro Ramires RN RN bm8 Corrections: (The following items were deleted from the chart) 03:54 03:54 BASIC METABOLIC PANEL+C.LAB.BRZ ordered. EDMS EDMS 03:54 03:54 CBC+H.LAB.BRZ ordered. EDMS EDMS 03:54 03:54 Troponin High Sensitivity+C.LAB.BRZ ordered. EDMS EDMS 03:54 03:54 Chest Single View+RAD.RAD.BRZ ordered. EDMS EDMS 04:30 04:30 Head Brain Wo Cont+CT.RAD.BRZ ordered. EDMS EDMS
--- NOTE | 2024-05-19 06:41 | ER ---
Nurse's Notes [facility] Name: Gavin Polo Jr Age: 68 yrs Sex: Male : 1955 Arrival Date: 05/19/2024 Time: 03:43 Bed 2 Private MD: Diagnosis: Hypokalemia;Cramp and spasm;Anxiety disorder, unspecified Presentation: 05/19 03:57 Chief complaint: Patient states: I have been anxiety attacks since thrusdday evening. I bm8 have full body tremors. Coronavirus screen: Vaccine status: Patient reports receiving the 2nd dose of the covid vaccine. At this time, the client does not indicate any symptoms associated with coronavirus-19. Ebola Screen: Patient negative for fever greater than or equal to 101.5 degrees Fahrenheit, and additional compatible Ebola Virus Disease symptoms Patient denies exposure to infectious person. Patient denies travel to an Ebola-affected area in the 21 days before illness onset. No symptoms or risks identified at this time. Initial Sepsis Screen: Does the patient meet any 2 criteria? No. Patient's initial sepsis screen is negative. Does the patient have a suspected source of infection? No. Patient's initial sepsis screen is negative. Risk Assessment: Do you want to hurt yourself or someone else? Patient reports no desire to harm self or others. Onset of symptoms was May 16, 2024. 03:57 Method Of Arrival: EMS: [facility] bm8 03:57 Acuity: NICK 2 bm8 Triage Assessment: 03:59 General: Appears in no apparent distress. uncomfortable, Behavior is calm, cooperative, bm8 appropriate for age. Pain: Denies pain. EENT: No deficits noted. Neuro: No deficits noted. Level of Consciousness is awake, alert, obeys commands, Oriented to person, place, time, situation, Appropriate for age Reports tremors with his anxiety attacks. Cardiovascular: No deficits noted. Heart tones S1 S2 present Capillary refill < 3 seconds in bilateral fingers Patient's skin is warm and dry. Rhythm is sinus rhythm. Respiratory: Airway is patent Trachea midline Respiratory effort is even, unlabored, Respiratory pattern is regular, symmetrical, Breath sounds are clear bilaterally. GI: No signs and/or symptoms were reported involving the gastrointestinal system. : No signs and/or symptoms were reported regarding the genitourinary system. Derm: No signs and/or symptoms reported regarding the dermatologic system. Musculoskeletal: No signs and/or symptoms reported regarding the musculoskeletal system. Historical: - Allergies: 03:59 No Known Allergies; bm8 - Home Meds: 03:59 aspirin 81 mg Oral tablet daily [Active]; atorvastatin 20 mg Oral tablet daily bm8 [Active]; chlordiazepoxide HCl 25 mg Oral capsule 2 times per day [Active]; K2 Plus D3 1 Oral tablet daily [Active]; lactulose 20 gram/30 mL Oral solution 2 times per day [Active]; levothyroxine 50 mcg tablet daily [Active]; losartan 50 mg Oral tablet once [Active]; magnesium oxide 400 mg magnesium Oral tablet daily [Active]; metoprolol tartrate 25 mg Oral tablet 2 times per day [Active]; mirtazapine 15 mg Oral tablet daily [Active]; multivitamin Oral tablet daily [Active]; pantoprazole 40 mg Oral tablet 2 times per day [Active]; tamsulosin 0.4 mg Oral capsule 2 caps daily [Active]; - PMHx: 03:59 Anxiety; Elizondo's Esophagus; Atrial valve stenosis; central tremor; etoh abuse; GERD; bm8 Hypertension; - PSHx: 03:59 heart valve replacement; bm8 - Immunization history:: Adult Immunizations up to date. - Infectious Disease History:: Denies. - Social history:: Smoking status: Patient denies any tobacco usage or history of. Patient uses alcohol, on a daily basis. Screenin:03 [facility] ED Fall Risk Assessment (Adult) History of falling in the last 3 months, bm8 including since admission No falls in past 3 months (0 pts) Confusion or Disorientation No (0 pts) Intoxicated or Sedated No (0 pts) Impaired Gait No (0 pts) Mobility Assist Device Used No (0 pt) Altered Elimination No (0 pt) Score/Fall Risk Level 0 - 2 = Low Risk Oriented to surroundings, Maintained a safe environment, Educated pt \T\ family on fall prevention, incl call for assistance when getting out of bed, Assessed \T\ reinforced patient's understanding of fall precautions, Hourly rounding (assess needs \T\ fall precautionary measures) done, Used ambulatory aids as needed (educated on \T\ assisted with), Used gait belt as appropriate. Abuse screen: Denies threats or abuse. Nutritional screening: No deficits noted. Tuberculosis screening: No symptoms or risk factors identified. Assessment: 04:03 General: see triage assessment. bm8 04:53 Reassessment: Patient appears in no apparent distress at this time. Patient and/or bm8 family updated on plan of care and expected duration. Pain level reassessed. Patient is alert, oriented x 3, equal unlabored respirations, skin warm/dry/pink. Patient denies pain at this time. Patient states feeling better. 06:16 Reassessment: Patient appears in no apparent distress at this time. Patient and/or bm8 family updated on plan of care and expected duration. Pain level reassessed. Patient is alert, oriented x 3, equal unlabored respirations, skin warm/dry/pink. pt states that he is starting to feel anxious again, provider informed Patient denies pain at this time. Vital Signs: 03:57 BP 113 / 88; Pulse 70; Resp 18; Temp 98; Pulse Ox 96% ; Weight 93.44 kg; Height 5 ft. 8 bm8 in. ; Pain 0/10; 04:53 BP 99 / 77; Pulse 67; Resp 18; Temp 98; Pulse Ox 96% ; Pain 0/10; bm8 06:16 BP 109 / 64; Pulse 69; Resp 16; Temp 98; Pulse Ox 97% on R/A; Pain 0/10; bm8 03:57 Body Mass Index 31.32 (93.44 kg, 172.72 cm) bm8 03:57 Pain Scale: Adult bm8 04:53 Pain Scale: Adult bm8 06:16 Pain Scale: Adult bm8 [place] Coma Score: 04:03 Eye Response: spontaneous(4). Motor Response: obeys commands(6). Verbal Response: bm8 oriented(5). Total: 15. 04:53 Eye Response: spontaneous(4). Motor Response: obeys commands(6). Verbal Response: bm8 oriented(5). Total: 15. ED Course: 03:46 Patient arrived in ED. rv1 03:47 Geovanny Lay MD is Attending Physician. ec2 03:57 Isidro Ramires, RN is Primary Nurse. bm8 03:59 Triage completed. bm8 03:59 Arm band placed on right wrist. bm8 04:03 Patient has correct armband on for positive identification. Bed in low position. Call bm8 light in reach. Side rails up X2. Client placed on continuous cardiac and pulse oximetry monitoring. NIBP monitoring applied. equipment monitor phototypesetting on. Pulse ox on. NIBP on. Door closed. Noise minimized. Warm blanket given. Pillow given. Verbal reassurance given. Head of bed. 04:03 No provider procedures requiring assistance completed. Initial lab(s) drawn, by me, bm8 sent to lab. EKG done, by ED staff, reviewed by Geovanny Lay MD. Inserted saline lock: 20 gauge in left forearm, using aseptic technique. Blood collected. Flushed with 10 mL NS. Patient maintains SpO2 saturation greater than 95% on room air. 04:40 XRAY Chest (1 view) In Process Unspecified. EDMS 04:53 Provided Education on:. bm8 05:10 CT Head Brain wo Cont In Process Unspecified. EDMS 06:51 IV discontinued, intact, bleeding controlled, No redness/swelling at site. Pressure bm8 dressing applied. Administered Medications: 04:10 Drug: diphenhydrAMINE PO 50 mg PO once Route: PO; bm8 06:19 Follow up: Response: No adverse reaction bm8 04:11 Drug: Diazepam IVP 5 mg IVP once Route: IVP; Site: left forearm; bm8 06:19 Follow up: Response: No adverse reaction bm8 04:51 Not Given (cahnged orderr): potassium [id number] meq PO once bm8 04:51 Drug: Potassium Chloride IV 20 mEq IV at calculated rate once; administer over 1-2 bm8 hours Route: IV; Rate: calculated rate; Site: left forearm; 06:50 Follow up: Response: No adverse reaction; IV Status: Completed infusion; IV Intake: bm8 100ml 04:51 Drug: NS 0.9% IV 250 ml IV at calculated rate once; to be given as a bolus over 30 bm8 minutes Route: IV; Rate: calculated rate; Site: left forearm; 06:19 Follow up: Response: No adverse reaction; IV Status: Completed infusion; IV Intake: bm8 250ml 04:52 Drug: Magnesium Sulfate IVPB 2 grams IVPB once over 30 mins Route: IVPB; Infused Over: bm8 30 mins; Site: left forearm; 06:19 Follow up: Response: No adverse reaction; IV Status: Completed infusion; IV Intake: [id number] 04:52 Drug: Potassium Chloride PO 20 mEq PO once Route: PO; bm8 06:19 Follow up: Response: No adverse reaction bm8 06:41 Drug: hydrOXYzine PO 50 mg PO once Route: PO; bm8 06:50 Follow up: Response: No adverse reaction bm8 Medication: 04:03 VIS not applicable for this client. bm8 Intake: 06:19 IV: 250ml; Total: 250ml. bm8 06:19 IV: 50ml; Total: 300ml. bm8 06:50 IV: 100ml; Total: 400ml. bm8 Outcome: 06:40 Discharge ordered by . ec2 06:51 Discharged to home ambulatory, bm8 06:51 Condition: stable 06:51 Discharge instructions given to patient, Instructed on discharge instructions, follow up and referral plans. no drinking with medication, no driving heavy equipment, medication usage, safety practices, Demonstrated understanding of instructions, follow-up care, medications, Prescriptions given X 1, 06:51 Patient left the ED. bm8 Signatures: Dispatcher [employer] Jaye Arias rv1 Geovanny Lay MD MD ec2 Isidro Ramires, RN RN bm8 Corrections: (The following items were deleted from the chart) 06:18 06:16 Reassessment: Patient appears in no apparent distress at this time. Patient bm8 and/or family updated on plan of care and expected duration. Pain level reassessed. Patient is alert, oriented x 3, equal unlabored respirations, skin warm/dry/pink. Patient denies pain at this time. Patient states symptoms have improved. bm8 06:50 06:50 hydrOXYzine PO 50 mg PO bm8 bm8
[2024-05-19] MEDS ORDERED: hydrOXYzine HCL 25 MG TAB ONE (06:44)
--- NOTE | 2024-05-19 06:49 | RAD REPORT ---
CLINICAL HISTORY: Chest pain. COMPARISON: XR Chest 04/05/2024. TECHNIQUE: XR CHEST 1 VIEW 05/19/2024 3:54 AM TRAINING ADMINISTRATOR FINDINGS: The heart is borderline in size following sternotomy. Lungs are clear without consolidation, atelecta sis, mass or edema. There is no pleural effusion. There is no pneumothorax. There are no acute osseous findings. IMPRESSION: Clear lungs. Electronically signed by: Jerod Christian MD 05/19/2024 06:26 AM TRAINING ADMINISTRATOR RP Due to temporary technical issues with the [employer] reporting system, reports are being jolie d by the in-house radiologist without review as a courtesy to ensure prompt reporting the interpreting radiologist is fully responsible for the content of the report. Transcribed Date/Time: 05/19/2024 6:48 AM
[2024-05-19 11:13] VITALS: TEMP 98
[2024-05-19 11:16] VITALS: BP 109/64; O2SAT 97
== END 2024-05-19 06:51 | disposition home or self-care (01) ==
LOC: ER 03:43
DX: E87.6 Hypokalemia (principal); F41.9 Anxiety disorder, unspecified; I10 Essential (primary) hypertension; Z79.82 Long term (current) use of aspirin
CPT/HCPCS: 96365; 96367; 96368; 85025; 80048; 36415; 84484; 70450; 71045; 96375; 99285; J3480; J3475; J3360; J7030